=== PATIENT | female | born 1950 | race Caucasian/White ===

== ENCOUNTER → 2023-07-06 07:45 | Outpatient (REF) | payer MEDICARE, SELFPAY ==
--- NOTE | 2023-07-06 21:56 | EEG.RPT ---
Electroencephalogram Report
Recording
Date of EE07/06/23
Type of EEG: Routine
Length of EEG recordin mins
Done with Video Recording: Yes
Patient Status: Outpatient
Recording Conditions: Awake and Drowsy
Hyperventilation Performed: No
Photic Stimulation Performed: Yes
Report
METHODS
A 21 channel digitized electroencephalogram was performed at [facility]. The 10/20 international system of electrode placement was used. In addition to EEG, the patient was monitored for EKG. The duration of the recording was 29 minutes.
BACKGROUND
During the awake state, with the eyes closed, the background consisted of a normal amplitude, 9-10 Hertz posterior reactive rhythm that attenuated appropriately with eye opening. Beta activity was distributed diffusely with an anterior predominance.
There was a normal anterior-posterior voltage gradient. With eye opening the background activity changed to a low voltage mixture of alpha, beta, and occasional theta range frequencies. There were no significant asymmetries of background activity
noted.
PHOTIC STIMULATION
Photic stimulation using a step-batres increase in photic frequency varying from 1-31 Hertz resulted in driving responses at various frequencies but no appearance of abnormal activity.
ABNORMAL EEG ACTIVITY
None
CLINICAL EVENTS
None
INTERPRETATION AND CLINICAL CORRELATION
This EEG is normal during the awake and drowsy state as well as during the activation procedure of photic stimulation. No seizures were noted during the recording. A normal EEG, in itself, does not rule out a diagnosis of epilepsy. If clinical
suspicion for seizure persists, a sleep-deprived and/or prolonged recording may be warranted.
== END ==
LOC: RCS 07:45
PROVIDERS: ATTENDING PHYSICIAN Neurological Surgery; PRIMARYCARE PHYSICIAN Internal Medicine
DX: D42.0 Neoplasm of uncertain behavior of cerebral meninges (principal); R56.9 Unspecified convulsions; Z98.890 Other specified postprocedural states
CPT/HCPCS: 95816

== ENCOUNTER → 2023-07-07 12:42 | Outpatient (REF) | payer MEDICARE, SELFPAY | LOC: RAD 12:42 | PROVIDERS: ATTENDING PHYSICIAN Physician Assistant; FAMILY PHYSICIAN Internal Medicine | DX: I73.9 Peripheral vascular disease, unspecified (principal) | CPT/HCPCS: 93922; 93925 ==

== ENCOUNTER 2023-08-22 07:57 | Inpatient (IN) | payer MEDICARE, SELFPAY ==
[2023-08-11 11:21] VITALS: BMI 41.7
[2023-08-11 12:17] LABS: % Basophils 1.5 % (0-2); % Eosinophils 3.7 % (0-6); % Immature Granulocytes 0.6 % (0-0.5); % Lymphocytes 10.9 % (20.5-51.1); % Monocytes 6.9 % (1.7-9.3); % Neutrophils 76.4 % (42.2-75.2); Absolute Basophils 0.1 10^3/uL (0-0.2); Absolute Eosinophils 0.3 10^3/uL (0-0.7); Absolute Lymphocytes 0.7 10^3/uL (1.2-3.4); Absolute Monocytes 0.5 10^3/uL (0.1-0.6); Absolute Neutrophils 5.1 10^3/uL (1.4-6.5); Hematocrit 39.5 % (37.0-47.0); Mean Corp Hgb Conc. 32.9 g/dL (33.0-37.0); Mean Corpuscular Hgb 27.4 pg (27.0-31.0); Mean Corpuscular Volume 83.3 fL (81.0-99.0); Mean Platelet Volume 10.2 fL (7.4-10.4); Nucleated Red Blood Cells % 0 %; Platelet Count 263 10^3/uL (130-400); Red Blood Cell Count 4.74 10^6/uL (4.20-5.40); Red Cell Dist. Width 17.2 % (11.5-14.5); White Blood Cell Count 6.7 10^3/uL (4.8-10.8)
[2023-08-11 12:29] LABS: INR 1.29; PT 15.9 Sec (11.4-14.6)
[2023-08-11 12:59] LABS: ALT (SGPT) 14 U/L (0-35); AST (SGOT) 18 U/L (14-36); Albumin 3.9 g/dl (3.5-5.0); Alkaline Phosphatase 104 U/L (38-126); Blood Urea Nitrogen 21 mg/dl (7-17); Calcium 9.4 mg/dl (8.4-10.2); Carbon Dioxide 29 mmol/L (22-30); Chloride 100 mmol/L (98-107); Estimated Creatinine Clearance 67 ml/min; Glucose 207 mg/dl (70-99); Potassium 3.7 mmol/L (3.5-5.1); Sodium 139 mmol/L (135-145); Total Bilirubin 0.6 mg/dl (0.2-1.3); eGFR > 60.00
[2023-08-22] VITALS (24 sets, daily range): BP systolic 64–125; BP diastolic 43–78; BMI 41.7
[2023-08-22 08:51] LABS: Glucose - Point of Care 141 mg/dl (70-99)
[2023-08-22] MEDS: NSS 500 IV (09:25)
[2023-08-22 11:05] LABS: ACT-LR - POC 210 Seconds (116-155)
--- NOTE | 2023-08-22 11:44 | ITS.CL.PN ---
Formal Wear Rental Clerk - Procedure Note
Procedure
Procedure Note:
Watchman implantation report
Date: August 22, 2023
Referring: Dr. Ac Jonas
History: Recent meningioma resection with frequent falls due to seizures as well as elevated stroke risk and permanent atrial fibrillation status post 2 attempts at catheter ablation.
Procedure report:
skiving machine operator: Dr. Nam Farley
biomass boiler operator: Dr. Azalia Mendes
After informed consent and patient safety timeout the patient was intubated by the anesthesiology service. General anesthesia was performed. Groin access was performed with ultrasound guidance with an 8 [place] and 9 [place] sheath placed over a
wire into the right femoral vein documented on intracardiac ultrasound. Patient given heparin to maintain an ACT greater than 300 seconds. Transesophageal echo was also performed concomitantly with intracardiac ultrasound to highlight the fossa,
direct imaging, rule out left atrial appendage thrombus and perform measurements on the delivery device.
Transapical puncture was performed with an SL 1 sheath with marked lipomatous hypertrophy of the fossa making transseptal puncture relatively difficult. An anterior and middle position was taken just below the significant lipomatous hypertrophy in
the superior limbus. Unfortunately the sheath [place] relatively mid chamber and extensive counter and anterior positioning of the sheath was required to engage the left atrial appendage with a pigtail. The SL 1 sheath was exchanged for the
watchman sheath over a ProTrac wire. Once the left atrial pended was engaged we had a chicken wing morphology with an extreme elbow bend superiorly. A 27 mm device was delivered with an 11 to 24% compression and device fabric engaging both
anterior and posterior sharma. Pass criteria was met with a double tug test, position with dye injection, SON parameters as above.
Once consensus was reached regarding past criteria the device was deployed and she is in catheters removed from the left atrium. Heparin was turned off and protamine was given. Catheters were removed and protamine was given to reverse heparin and
a [id number]-fo-uvtta stitch was delivered to the right groin. There is no pericardial effusion pre and post ablation both on intracardiac ultrasound and transesophageal echo.
See separate report for the transesophageal echo.
Recommendations:
Given her markedly elevated bleeding risk with recent neurological surgery, history of seizures and fall as well as overall medical condition we will do Xarelto only for 3 months until SON and then can consider aspirin thereafter.
--- NOTE | 2023-08-22 13:36 | WATCHMAN.MD ---
Watchman Implant
-
ELECTROPHYSIOLOGY/INTERVENTIONAL PROCEDURE REPORT
Date of Procedure: August 22, 2023
Referring: Dr. Ac Jonas
Assisting Physician: Nam Farley
PROCEDURES:
1. Left atrial appendage occlusion device using 27 mm WATCHMAN FLX device
2. Intracardiac echocardiography
3. Ultrasound-guided right common femoral venous access
INDICATION: Recent meningioma resection with frequent falls due to seizures as well as elevated stroke risk and permanent atrial fibrillation status post 2 attempts at catheter ablation.
ACCESS: Right common femoral vein, 16Fr sheath and 9Fr. sheaths, under US guidance
HEMODYNAMICS : (mmHg)
RA Pressure : 4
LA Pressure: 16
PROCEDURE REPORT:
After informed consent and patient safety 'Timeout' the patient was intubated and sedated by the anesthesiology service. Under ultrasound guidance, the right femoral vein was accessed twice for transseptal puncture and intracardiac ultrasound,
respectively. Concomitant transesophageal echocardiogram was performed by Dr. Reese Denny
Baseline intracardiac ultrasound demonstrated no pericardial effusion and baseline SON images revealed a trace pericardial effusion.
After ruling out a left atrial appendage thrombus, the patient was heparinized for an ACT between 350-400 seconds and under SON and intracardiac ultrasound guidance transseptal puncture was performed using an SL-1 catheter and 71cm BRK trans-septal
needle in a superior position on the inferior-superior axis and a mid position on the anterior-posterior axis. Right atrial pressure was 4 millimeters mercury and left atrial pressure was 16 millimeters mercury.
Once transseptal puncture was performed, a Harrison 0.035 wire parked in the body of left atrium, the SL 1 sheath was exchanged for a watchman access double curve sheath. A 5 Danish pigtail catheter was placed into the left atrial appendage and an
appendage gram was performed using intravenous contrast dye demonstrating a chicken type anatomy that was suitable likely for a 27 mm WATCHMAN FLX device.
After appropriately prepping the device, we successfully deployed a 27 mm WATCHMAN FLX device. Device showed excellent positioning with no leaks post device deployment. 11 to 24 % compression was noted in the device after deployment. A 'tug-test'
was performed demonstrating stability of the device. Given PASS criteria were met, the device was then released successfully.
Post procedure, SON imaging demonstrated no new or worse pericardial effusion. Sheaths and catheters were removed from the left atrium and heparin was reversed using protamine. Catheters removed from the femoral veins with [id number] suture
applied. The patient tolerated the procedure well.
RADIATION SUMMARY: Fluoro Time (min): 12.1, Dose (mGy): 985.05, DAP (Gy.cm2) : 104
Closure Device: Figure of 8 suture
CONCLUSIONS
1. Successful deployment of 27 mm WATCHMAN FLX device under SON and ICE guidance.
RECOMMENDATIONS
1. Given her markedly elevated bleeding risk with recent neurological surgery, history of seizures and fall as well as overall medical condition, plan is for Xarelto only for 3 months until SON.
2. Three month SON post procedure to assess stability of device and rule out any ricky-device leaks. If no significant leaks identified at that point with a stable device, we would plan on discontinuing the Xarelto and starting daily baby aspirin.
3. Figure of 8 suture removal prior to discharge.
Copy to: Dr. Ac Jonas
Azalia Mendes MD, [facility], [facility]
[2023-08-22 13:37] LABS: Glucose - Point of Care 136 mg/dl (70-99)
--- NOTE | 2023-08-22 14:07 | CM ---
Chart reviewed. Patient lives with her son and his extended family in a [address]. Patient with no discharge needs. Plan is for the patient to return home.
--- NOTE | 2023-08-22 15:24 | W.PN.UPDATE ---
Addendum entered and electronically signed by DB Beyer 08/23/23 08:43:
Pt having hypoxia with minimal exertion, sats dropping to mid 80's. We will check CXR, lasix 40mg IV now and admit to IVU o/n for observation. If bp able may give another dose of IV lasix tonight or in am if unable to tolerate RA. Dr. Farley aware
and agrees with plan.
Original Note:
Update Note
Progress Note Update
72 yo WF s/p ANNE Watchman device implant (same day). She feels good, no cp, sob, jr diet. R fem site c/d/i F08 in place. She will continue OAC Xarelto. She will have f/u SON in 3 months. Activity restrictions reviewed. She will f/u 1 mo at [facility]. She
is for d/c home after 5pm if groins stable, amb and voiding.
PROCEDURES:
1.� Left atrial appendage occlusion device using 27 mm WATCHMAN FLX device
2.� Intracardiac echocardiography
3.� Ultrasound-guided right common femoral venous access
--- NOTE | 2023-08-22 16:22 | PTCARENOTE ---
Pt's sats drop to 70's with minimal activity and high 80's in RA. MD/PARK SUPERINTENDENT notified. Pt will remain in house on O2 with plans to 'dose with Lasix when BP allows it'. Pt is agreeable to staying on the condition she is on a regular diet.
[2023-08-22] MEDS: LASIX 40 MG IV (16:35)
[2023-08-22] MEDS: NOVOLOG FLEXPEN-MODERATE RESISTANCE 1 UNITS SC (16:47)
[2023-08-22 16:53] LABS: Glucose - Point of Care 195 mg/dl (70-99)
--- NOTE | 2023-08-22 18:03 | PTCARENOTE ---
Rec'd report from Roxana in the label maker. Rec'd pt AAOx3 w/no c/o CP or SOB. Pt's vs stable. Pt's O2 sats on 2L O2 via NC 94-96%. R groin access site w/dressing C/D/I w/no signs or symptoms of bleeding or hematoma. Pt w/purewick place for stress
incontinence & urgency. Pt was given IV Lasix in label maker just before transfer to IVU. Pt oriented to room, call duque within reach, & plan of care ongoing.
[2023-08-22] MEDS: XARELTO 20 MG PO (18:44)
[2023-08-22] MEDS: ANESTHETIC LOZENGE 1 LOZENGE PO (20:51)
[2023-08-22] MEDS: KEPPRA 500 MG PO (20:51)
[2023-08-22] MEDS: KCL 20 MEQ PO (20:51)
[2023-08-22 21:44] LABS: Glucose - Point of Care 414 mg/dl (70-99)
[2023-08-22 21:44] LABS: Glucose - Point of Care 468 mg/dl (70-99)
[2023-08-22 22:19] LABS: Glucose 435 mg/dl (70-99)
[2023-08-22] MEDS: TRICOR 48 MG PO (22:52)
[2023-08-22] MEDS: ZOLOFT 50 MG PO (22:52)
[2023-08-22] MEDS: LIPITOR 40 MG PO (22:52)
[2023-08-22] MEDS: NOVOLOG FLEXPEN 10 UNITS SC (23:14)
[2023-08-22] MEDS: LANTUS 0.160000000000000003 UNITS SC (23:15)
--- NOTE | 2023-08-22 23:39 | PTCARENOTE ---
received patient at the change of shift. AAOx3. denies any pain. HR Afib with a BBB 100s. bp stable. patient denies any sob. weaned patient to RA-94%. chest xray completed. R groin site-CDI.
HS glucose RR high. stat venous sent-435. updated Ed Galo LAMA. order placed for insulin 10 units SC, see aug. will recheck in 2 hrs.
[2023-08-23 01:16] LABS: Glucose - Point of Care 319 mg/dl (70-99)
[2023-08-23 04:10] VITALS: BP 112/64
[2023-08-23 05:07] LABS: Hematocrit 39.1 % (37.0-47.0); Hemoglobin 12.1 g/dL (12.0-16.0); Mean Corp Hgb Conc. 30.9 g/dL (33.0-37.0); Mean Corpuscular Hgb 27.2 pg (27.0-31.0); Mean Corpuscular Volume 87.9 fL (81.0-99.0); Mean Platelet Volume 10.4 fL (7.4-10.4); Platelet Count 251 10^3/uL (130-400); Red Blood Cell Count 4.45 10^6/uL (4.20-5.40); Red Cell Dist. Width 16.6 % (11.5-14.5); White Blood Cell Count 7.7 10^3/uL (4.8-10.8)
[2023-08-23 05:36] LABS: Blood Urea Nitrogen 21 mg/dl (7-17); Calcium 9.4 mg/dl (8.4-10.2); Carbon Dioxide 26 mmol/L (22-30); Chloride 102 mmol/L (98-107); Estimated Creatinine Clearance 75 ml/min; Glucose 265 mg/dl (70-99); Magnesium 2.1 mg/dl (1.6-2.3); Potassium 4.4 mmol/L (3.5-5.1); Sodium 138 mmol/L (135-145); eGFR > 60.00
[2023-08-23 06:00] VITALS: BMI 43.4
[2023-08-23] MEDS: SYNTHROID 125 MCG PO (06:21)
[2023-08-23] MEDS: LASIX 120 MG PO (06:21)
[2023-08-23 06:23] VITALS: BP 127/68
[2023-08-23 07:13] LABS: Glucose - Point of Care 216 mg/dl (70-99)
[2023-08-23 07:41] VITALS: BP 116/67
[2023-08-23] MEDS: NOVOLOG FLEXPEN-MODERATE RESISTANCE 3 UNITS SC (08:03)
--- NOTE | 2023-08-23 08:04 | W.PN.CARDCBS ---
Addendum entered and electronically signed by Nam Farley MD 08/23/23 09:53:
Patient seen and examined
Agree [employer]ATE [employer] noted assessment
Agree [employer]ATE [employer] plan
Examination:
Cor regular
Telemetry A-fib
JVP 6
Lungs clear
Trace extremity
Vitals noted
Remainder of exam deferred and as per [employer] ASS[employer]IATE [employer] note
IMPRESSION:
AFib, prior PVI x2
S/P Watchman device implant, 08/22/23
Seizures
Hemangioma s/p craniotomy/radiation therapy (2007)
Ambulatory dysfunction with falls
DON, prior blood transfusions
HTn
HLD
DM
GERD/HH
CAD w/prior UT, PCI x2 REJI (1996)
Asthma/Reactive Lung Disease
Severe Pulm HTN
Chronic diastolic HFpEF, 50-55%
RBBB
Mod MR, Mod-Sev TR
PLAN:
Tele- AFib w/RBBB, rates 90-100s, no acute changes
Groin site stable
Continue Xarelto post watchman
SON in 3 months as scheduled, at which time likely will change to monotherapy with aspirin 81mg/daily
BP stable overnight- continue verapamil, digoxin
CXR w/severe distention of main pulm artery c/w severe PAH
No further dyspnea/hypoxia/hypotension- continue lasix, spironolactone
Followup at [facility] as scheduled and SON to follow
Home today
Original Note:
Today's Communication / Plan
-
SON in 3 months
Xarelto for 3 months, then aspirin 81/d if no leaks
followup at [facility] as scheduled
home today
Impression / Plan
-
PCP: Betsy Heard NP
CDY: Rob Jonas MD
72 y/o PMH sig for AFib w/prior PVI x2, [id number]=0 and HAS-BLED=5, ambulatory dysfunction with falls r/t prior seizures, hemangioma with craniotomy and radiation therapy, as well as iron deficiency anemia with prior blood transfusions. She has
been maintained on xarelto 20mg daily for her AFib.
Presented to EP lab 08/21, s/p LAAD/Watchman device implant. Post procedure in recovery she developed hypoxia and hypotension, received iv lasix and supplemental O2, now stable overnight.
IMPRESSION:
AFib, prior PVI x2
S/P Watchman device implant, 08/22/23
Seizures
Hemangioma s/p craniotomy/radiation therapy (2007)
Ambulatory dysfunction with falls
DON, prior blood transfusions
HTn
HLD
DM
GERD/HH
CAD w/prior UT, PCI x2 REJI (1996)
Asthma/Reactive Lung Disease
Severe Pulm HTN
Chronic diastolic HFpEF, 50-55%
RBBB
Mod MR, Mod-Sev TR
PLAN:
Tele- AFib w/RBBB, rates 90-100s, no acute changes
Groin site stable
Continue Xarelto post watchman
SON in 3 months as scheduled, at which time likely will change to monotherapy with aspirin 81mg/daily
BP stable overnight- continue verapamil, digoxin
CXR w/severe distention of main pulm artery c/w severe PAH
No further dyspnea/hypoxia/hypotension- continue lasix, spironolactone
Followup at [facility] as scheduled and SON to follow
Home today
Progress Note - Regional Engagement Consultant
Subjective
Date of Service: August 23, 2023
Denies cp/palps/dypsnea
groin site without pain
oob ambulating
Objective
Labs:
08/23/23 04:22
08/23/23 04:22
Labs
Hgb 12.1 g/dL (12.0-16.0) 08/23/23 04:22
Hct 39.1 % (37.0-47.0) 08/23/23 04:22
Plt Count 251 10^3/uL (130-400) 08/23/23 04:22
PT 15.9 Sec (11.4-14.6) H 08/11/23 11:47
INR 1.29 08/11/23 11:47
Sodium 138 mmol/L (135-145) 08/23/23 04:22
Potassium 4.4 mmol/L (3.5-5.1) 08/23/23 04:22
BUN 21 mg/dl (7-17) H 08/23/23 04:22
Creatinine 0.8 mg/dL (0.6-1.0) 08/23/23 04:22
Glucose 265 mg/dl (70-99) H 08/23/23 04:22
Vital Signs and I&O:
Vital Signs
Temp Pulse Resp BP Pulse Ox
98.6 F 112 20 116/67 93
08/23/23 07:41 08/23/23 08:00 08/23/23 07:41 08/23/23 07:41 08/23/23 07:41
Vital Signs
Temp Pulse Resp BP Pulse Ox
98.6 F 112 20 116/67 93
08/23/23 07:41 08/23/23 08:00 08/23/23 07:41 08/23/23 07:41 08/23/23 07:41
Intake & Output
08/21/23 08/22/23 08/23/23 08/24/23
06:59 06:59 06:59 06:59
Intake Total 2160 / 2160
Output Total 1100 / 1100
Balance 1060 / 1060
Physical Exam
Physical Exam
AAOx3, MAEE 5/5
Irreg irreg S1 S2 no murmurs
CTA bilat, non labored
soft abd, + bs
right groin site without ht/bleeding, non tender
bilat extremities w/palpable distal pulses, no edema
[2023-08-23] MEDS: ALDACTONE 25 MG PO (08:05)
[2023-08-23] MEDS: CALAN EXTENDED RELEASE 360 MG PO (08:06)
[2023-08-23] MEDS: KCL 20 MEQ PO (08:06)
[2023-08-23] MEDS: PROTONIX 40 MG PO (08:06)
[2023-08-23] MEDS: KEPPRA 500 MG PO (08:06)
[2023-08-23] MEDS: FLUSH (NSS) 1 FLUSH IV (08:07)
--- NOTE | 2023-08-23 09:13 | PTCARENOTE ---
Received patient this morning already oob and sitting in the chair. Seen by Dr. Farley and is ok for discharge home today. Reports no pain or discomfort, right groin dressing is dry and intact. Await discharge order, states her granddaughter will
drive her home.
[2023-08-23 09:49] LABS: Glycohemoglobin (HgbA1c) 9.3 % (4.0-5.6)
[2023-08-23] MEDS: ANESTHETIC LOZENGE 1 LOZENGE PO (10:33)
--- NOTE | 2023-08-23 10:35 | CM ---
Chart reviewed. Patient is independent of ADLS, lives with her son and his family in a [address] [facility], [address], ambulates with a rolling walker and also has a chair lift. Patient is current with [facility]. Referral sent to resume services. Plan is for
the patient to return home with [facility].
--- NOTE | 2023-08-23 11:41 | PTCARENOTE ---
Reviewed discharge instructions with the patient and follow up appointments and she states her understanding. Patient discharged home with her granddaughter.
--- NOTE | 2023-08-23 12:34 | W.DS.TRANS ---
DC Summary - Special Needs Nanny
-
Discharge Instructions:
Sleep Apnea Risk Intermediate
Discharge Diagnosis/Procedures Afib post Watchman device insertion
Diet Low Cholesterol,Diabetic, Carb Controlled
Driving Restrictions No driving for 24 hours
Others Tests A SON is scheduled for you at [facility] on 11/15/2023. You will receive
instructions in the mail and a call the day
before with arrival time.
Instructions:
Stand-Alone Forms: DC Instructions- Cath/EP Lab
Changes to Home Medications: No
Discharge Medications:
DC Medications w/original date entered in [employer]
rivaroxaban 20 mg tablet (Xarelto) 20 mg PO HS Blood clot prevention/tx 03/21/17
albuterol sulfate 90 mcg/actuation aerosol inhaler 2 puff inhalation R Q4HPRN PRN sob/wheezing 09/27/19
folic acid 1 mg tablet 1 mg PO DAILY Supplement #7 tabs 02/20/20
atorvastatin 40 mg tablet 40 mg PO HS High cholesterol 04/23/21
fenofibrate nanocrystallized 48 mg tablet 48 mg PO HS High cholesterol 07/13/21
ascorbic acid (vitamin C) 500 mg tablet (Vitamin C) 500 mg PO BID Supplement #0 tabs 07/23/21
cholecalciferol (vitamin D3) 50 mcg (2,000 unit) tablet 2,000 units PO DAILY Supplement #0 tabs 07/23/21
montelukast 10 mg tablet 10 mg PO DAILY Allergies 11/30/21
pantoprazole 40 mg tablet,delayed release 40 mg PO DAILY Gastrointestinal issue 11/30/21
sertraline 50 mg tablet 50 mg PO HS Depression 11/30/21
insulin glargine 100 unit/mL (3 mL) subcutaneous pen (Lantus Solostar U-100 Insulin) 16 unit SC HS 06/28/22
verapamil 180 mg tablet,extended release 360 mg PO DAILY 30 days #60 tabs 07/02/22
furosemide 80 mg tablet 120 mg PO DAILY 08/08/23
levetiracetam 500 mg tablet 500 mg PO BID 08/11/23
acetaminophen 650 mg tablet,extended release 1,300 mg PO BIDPRN PRN headache, pain 08/22/23
digoxin 125 mcg (0.125 mg) tablet 125 mcg PO DAILY 08/22/23
ferrous fumarate 325 mg (106 mg iron) tablet 325 mg PO DAILY 08/22/23
fluticasone 250 mcg-salmeterol 50 mcg/dose blistr powdr for inhalation (Advair Diskus) 1 inh inhalation BID 08/22/23
furosemide 80 mg tablet 80 mg PO DAILY@1400 08/22/23
levothyroxine 125 mcg tablet (Synthroid) 125 mcg PO DAILY 08/22/23
metformin 500 mg tablet,extended release 24 hr 500 mg PO BID 08/22/23
potassium chloride 20 mEq tablet,extended release(part/cryst) 20 meq PO BID 08/22/23
spironolactone 25 mg tablet 25 mg PO DAILY 08/22/23
Home Medication Changes
Pending Results: No
== END 2023-08-23 11:45 | disposition home health service (06) | DRG 274 ==
LOC: IVU 07:57 → CATH 08:00
PROVIDERS: Nurse Practitioner Adult Health; ADMITTING PHYSICIAN Internal Medicine Cardiovascular Disease; FAMILY PHYSICIAN Internal Medicine
PROC: 02L73DK Occlusion of Left Atrial Appendage with Intraluminal Device, Percutaneous Approach (ICD-10-PCS; 2023-08-22)
PROC: B24BZZ4 Ultrasonography of Heart with Aorta, Transesophageal (ICD-10-PCS; 2023-08-22)
DX: I48.21 Permanent atrial fibrillation (principal); I13.0 Hypertensive heart and chronic kidney disease with heart failure and stage 1 through stage 4 chronic kidney disease, or unspecified chronic kidney disease; R09.02 Hypoxemia; I95.9 Hypotension, unspecified; I45.10 Unspecified right bundle-branch block; I27.21 Secondary pulmonary arterial hypertension; I50.9 Heart failure, unspecified; N18.30 Chronic kidney disease, stage 3 unspecified; E78.5 Hyperlipidemia, unspecified; I25.10 Atherosclerotic heart disease of native coronary artery without angina pectoris; E11.22 Type 2 diabetes mellitus with diabetic chronic kidney disease; E03.9 Hypothyroidism, unspecified; G40.909 Epilepsy, unspecified, not intractable, without status epilepticus; E11.40 Type 2 diabetes mellitus with diabetic neuropathy, unspecified
CPT/HCPCS: 33340; 36415; 71045; 76937; 80048; 80053; 82947; 82962; 83036; 83735; 85025; 85027; 85347; 85610; 86850; 86900; 86901; 87070; 93005; 93355; 93662; C1759; C1892; C1893; C1894; Q9967

== ENCOUNTER 2023-08-31 23:44 | Emergency (ER) | payer MEDICARE, SELFPAY ==
[2023-08-31 23:47] VITALS: BP 127/65
[2023-09-01] VITALS: BP 111/94
--- NOTE | 2023-09-01 00:13 | ED.GENMED ---
History of Present Illness
General
Chief Complaint: Dizziness
Time Seen by Provider: 09/01/23 00:13
Travel History
Have you had any contact with someone who has COVID-19?: No
Do you have any symptoms of coronavirus? Fever > 100 degrees, chills, cough, shortness of breath, sore throat, loss of taste or smell, muscle aches, or headache?: No
History of Present Illness
History of Present Illness:
HPI: The patient presents with vertiginous symptoms ongoing for the past several days. She had a Watchman procedure 4 days ago which was uneventful. She has no associated chest pain or shortness of breath. Her symptoms of vertigo worsen with
changes in head position. She is known to Dr. Barrera called their office and informed her to drink plenty of fluid.
EXAM:
GENERAL: Well appearing in no distress
HEENT: Moist oral mucosa
CARDIOVASCULAR: No murmurs, normal heart rate, irregular rhythm, No chest wall tenderness
PULMONARY: No respiratory distress, breath sounds are clear and equal
ABDOMEN: Soft with no peritoneal signs, no tenderness
NEUROLOGIC: Good strength all extremities, no coordination deficits, normal finger-nose testing bilaterally
PSYCHIATRIC: Appropriate mental status, normal insight and judgement
EXTREMITIES: Nontender, chronic bilateral lower extremity lymphedema noted, moves all extremities equally
SKIN: No rash, no lesions
TIME OF INITIAL ENCOUNTER: 12:15 AM
NUMBER AND COMPLEXITY OF PROBLEMS ADDRESSED AT THE ENCOUNTER
� Chronic conditions affecting care: Atrial fibrillation, CHF, CAD, lymphedema, pulmonary hypertension
� Acute Exacerbation and/or Progression of Chronic Illness: This is an acute problem
� Differential Diagnosis includes: BPPV, intracranial pathology, postprocedural complication unlikely, dysrhythmia
AMOUNT AND/OR COMPLEXITY OF DATA TO BE REVIEWED AND ANALYZED
� I performed an independent evaluation of and my interpretation is:
EKG: The patient is in A-fib on the monitor with rates in the 70s to 80s
CT: I personally viewed the CT of the brain and agree with radiologist interpretation there is no acute abnormality
X-rays:
Laboratory Studies: CBC normal, chemistries show glucose of 380 and she has been hyperglycemic in the past, dig level slightly low at 0.6
Other:
� Review of other/old records: I reviewed the records from this past hospitalization within this past week
� Clinical information was obtained by an independent historian: None needed
� Prescriptions/Medications Considered but not given:
� Further testing considered but not performed:
RISK OF COMPLICATIONS AND/OR MORBIDITY OR MORTALITY OF PATIENT MANAGEMENT
� Social determinants of health affecting care: Lives at home
� Discussion with other providers: Notified Dr. Mathew at 1:25 AM
� Escalation of care including admission/observation vs risk of discharge considered: The patient's symptoms are more consistent with BPPV as opposed to a central etiology. She is currently in rate controlled A-fib. Given her
age, obtained CT imaging of the brain which showed no acute abnormality. Suspect BPPV�she states that she can obtain physical therapy at home as she already has visiting nursing working with her.
Past History
Past History
ED Past Medical History: Arrthythmia (Atrial fibrillation), Asthma, CAD, CHF, HTN, Hypercholesterolemia, IDDM, DC, Hypothyroidism and Other (PNA, Cellulitis, Chronic Lymph edema,)
ED Past Surgical History: Cardiac (cardioversion, Stents X 2), Cholecystectomy and Other
Social History
Tobacco: Former smoker
Alcohol: Daily (Vodka 1 large glass)
Drug: None
Personal:
Living: alone
Employment: Retired
Family History
Family History: Hypertension
Phy Exam
Physical Exam
Physical Exam:
See HPI
Course
Orders/Labs/Results
Orders:
Orders
09/01/23 00:15
CBC/With Diff [Complete Blood Count/With Diff] Urgent
CMP [Comprehensive Metabolic Panel] Urgent
Digoxin Urgent
09/01/23 00:20
CT Head W/o Iv Contrast Urgent
Comment:
Reason For Exam: new vertigo
0.9% Sodium Chloride 500 ml [Nss] 500 ml IV BOLUS
09/01/23 00:24
Add On- LAB Urgent
Tests Added?: digoxin
Abnormal Lab Results
09/01/23
00:15
MCHC 31.3 L g/dL
(33.0-37.0)
RDW 16.6 H %
(11.5-14.5)
MPV 10.5 H fL
(7.4-10.4)
Abs Immat Gran (auto) 0.2 H 10^3/uL
(0-0.05)
Absolute Lymphs (auto) 0.8 L 10^3/uL
(1.2-3.4)
Immature Gran % 2.2 H %
(0-0.5)
Lymphocytes % 12.2 L %
(20.5-51.1)
Sodium 134 L mmol/L
(135-145)
BUN 21 H mg/dl
(7-17)
Glucose 380 H mg/dl
(70-99)
Digoxin 0.6 L ng/ml
(0.8-2.0)
09/01/23 00:15
09/01/23 00:15
Vital Signs
Initial and Last Documented VS:
Initial Vital Signs
Temp Pulse Resp BP Pulse Ox
98.1 F 73 20 127/65 93
08/31/23 23:47 08/31/23 23:47 08/31/23 23:47 08/31/23 23:47 08/31/23 23:47
Last Documented Vital Signs
Temp Pulse Resp BP Pulse Ox
98.1 F 73 20 127/65 93
08/31/23 23:47 08/31/23 23:47 08/31/23 23:47 08/31/23 23:47 08/31/23 23:47
*Critical Care Note
Total Time (30-74mins, 75-104mins- exclusive of procedures): Not Applicable
ED Attending Note
-
Portions of this chart may have been created with voice recognition software.� Occasional wrong word or��sound alike� substitutions may have occurred due to the inherent limitations of voice recognition software.
Discharge Plan
Departure
Patient Disposition: Home (Routine Discharge)
Date of Disposition: 09/01/23
Time of Disposition: :27
Patient with high blood pressure during this ER visit?: Yes
Discharge Problem:
Benign paroxysmal positional vertigo
Instructions: Vertigo (a Type of Dizziness) (DC)
Prescriptions:
No Action
Xarelto 20 MG tablet
20 mg PO HS
albuterol sulfate 1 PUFF HFA aerosol inhaler
2 puff inhalation R Q4HPRN PRN (Reason: sob/wheezing)
folic acid 1 MG tablet
1 mg PO DAILY Qty: 7 0RF
atorvastatin 40 MG tablet
40 mg PO HS
fenofibrate nanocrystallized 48 MG tablet
48 mg PO HS
ascorbic acid (vitamin C) [Vitamin C] 500 MG tablet
500 mg PO BID Qty: 0 0RF
cholecalciferol (vitamin D3) 2,000 UNITS tablet
2,000 units PO DAILY Qty: 0 0RF
pantoprazole 40 MG tablet,delayed release (DR/EC)
40 mg PO DAILY
sertraline 50 MG tablet
50 mg PO HS
montelukast 10 MG tablet
10 mg PO DAILY
insulin glargine [Lantus Solostar U-100 Insulin] 100 unit/mL (3 mL) Insulin Pen
16 unit SC HS
verapamil 180 mg Tablet Extended Release
360 mg PO DAILY 30 Days Qty: 60 0RF
furosemide 80 mg Tablet
120 mg PO DAILY
levetiracetam 500 mg Tablet
500 mg PO BID
fluticasone propion-salmeterol [Advair Diskus] 250-50 mcg/dose Blister With Device
1 inh INHALATION BID
spironolactone 25 mg Tablet
25 mg PO DAILY
acetaminophen 650 mg Tablet Extended Release
1,300 mg PO BIDPRN PRN (Reason: headache, pain)
furosemide 80 mg Tablet
80 mg PO DAILY@1400
levothyroxine [Synthroid] 125 mcg Tablet
125 mcg PO DAILY
digoxin 125 mcg (0.125 mg) Tablet
125 mcg PO DAILY
ferrous fumarate 325 mg (106 mg iron) Tablet
325 mg PO DAILY
potassium chloride 20 mEq tablet,ER particles/crystals
20 meq PO BID
metformin 500 mg tablet extended release 24 hr
500 mg PO BID
Referrals:
Betsy Heard NP [Family Provider] -
Activity Restrictions/Additional Instructions:
Basic blood work appears normal. Your white count and hemoglobin are both normal. Your blood sugar is high at 380. Digoxin level is slightly low at 0.6. You were in atrial fibrillation on the monitor. I sent a message to Dr. Priyanka Dr.
Martine's partner notifying them of your visit to the ED. CAT scan of the brain showed no acute abnormality.
Interventions
Interventions:
*Risk Screen - Suicide Last Done: 08/31/23 23:48
*Neglect/Abuse Screening Last Done: 08/31/23 23:48
*ED COVID-19 Vaccine History Last Done: 08/31/23 23:48
Discharge Date and Time
Print Language: CITIZEN OF [place]
[2023-09-01 00:35] LABS: % Basophils 1.2 % (0-2); % Eosinophils 3.1 % (0-6); % Immature Granulocytes 2.2 % (0-0.5); % Lymphocytes 12.2 % (20.5-51.1); % Monocytes 6.6 % (1.7-9.3); % Neutrophils 74.7 % (42.2-75.2); Absolute Basophils 0.1 10^3/uL (0-0.2); Absolute Eosinophils 0.2 10^3/uL (0-0.7); Absolute Immature Granulocytes 0.2 10^3/uL (0-0.05); Absolute Lymphocytes 0.8 10^3/uL (1.2-3.4); Absolute Monocytes 0.5 10^3/uL (0.1-0.6); Absolute Neutrophils 5.1 10^3/uL (1.4-6.5); Hematocrit 39.9 % (37.0-47.0); Hemoglobin 12.5 g/dL (12.0-16.0); Mean Corp Hgb Conc. 31.3 g/dL (33.0-37.0); Mean Corpuscular Hgb 27.8 pg (27.0-31.0); Mean Corpuscular Volume 88.9 fL (81.0-99.0); Mean Platelet Volume 10.5 fL (7.4-10.4); Nucleated Red Blood Cells % 0 %; Platelet Count 249 10^3/uL (130-400); Red Blood Cell Count 4.49 10^6/uL (4.20-5.40); Red Cell Dist. Width 16.6 % (11.5-14.5); White Blood Cell Count 6.9 10^3/uL (4.8-10.8)
[2023-09-01 00:44] LABS: ALT (SGPT) 15 U/L (0-35); AST (SGOT) 23 U/L (14-36); Albumin 4.3 g/dl (3.5-5.0); Alkaline Phosphatase 100 U/L (38-126); Blood Urea Nitrogen 21 mg/dl (7-17); Calcium 9.4 mg/dl (8.4-10.2); Carbon Dioxide 25 mmol/L (22-30); Chloride 103 mmol/L (98-107); Digoxin 0.6 ng/ml (0.8-2.0); Glucose 380 mg/dl (70-99); Potassium 3.8 mmol/L (3.5-5.1); Sodium 134 mmol/L (135-145); Total Bilirubin 0.8 mg/dl (0.2-1.3); Total Protein 7.3 g/dl (6.3-8.2); eGFR 59.12
[2023-09-01] MEDS: NSS 500 IV (01:02)
[2023-09-01 01:03] VITALS: BP 115/73
== END 2023-09-01 03:06 | disposition home or self-care (01) ==
LOC: EMR 23:44
PROVIDERS: Student in an Organized Health Care Education/Training Program; EMERGENCY PHYSICIAN Emergency Medicine; FAMILY PHYSICIAN Internal Medicine
DX: H81.10 Benign paroxysmal vertigo, unspecified ear (principal); I48.91 Unspecified atrial fibrillation; I50.9 Heart failure, unspecified; I10 Essential (primary) hypertension
CPT/HCPCS: 99284; 70450; 80053; 80162; 85025

== ENCOUNTER → 2023-09-15 09:12 | Outpatient (REF) | payer MEDICARE, SELFPAY | LOC: RAD 09:12 | PROVIDERS: ATTENDING PHYSICIAN Internal Medicine | DX: R93.89 Abnormal findings on diagnostic imaging of other specified body structures (principal); N83.202 Unspecified ovarian cyst, left side | CPT/HCPCS: 76856; 93971 ==

== ENCOUNTER 2023-10-15 02:38 | Emergency (ER) | payer MEDICARE, OTHER, SELFPAY ==
[2023-10-15] VITALS (10 sets, daily range): BP systolic 102–152; BP diastolic 62–98
[2023-10-15 03:04] LABS: % Basophils 1.6 % (0-2); % Eosinophils 4.5 % (0-6); % Immature Granulocytes 0.9 % (0-0.5); % Monocytes 8.1 % (1.7-9.3); % Neutrophils 71.9 % (42.2-75.2); Absolute Basophils 0.1 10^3/uL (0-0.2); Absolute Eosinophils 0.3 10^3/uL (0-0.7); Absolute Immature Granulocytes 0.1 10^3/uL (0-0.05); Absolute Lymphocytes 0.9 10^3/uL (1.2-3.4); Absolute Monocytes 0.6 10^3/uL (0.1-0.6); Hematocrit 37.6 % (37.0-47.0); Hemoglobin 11.7 g/dL (12.0-16.0); Mean Corp Hgb Conc. 31.1 g/dL (33.0-37.0); Mean Corpuscular Hgb 27.8 pg (27.0-31.0); Mean Corpuscular Volume 89.3 fL (81.0-99.0); Mean Platelet Volume 9.6 fL (7.4-10.4); Nucleated Red Blood Cells % 0 %; Platelet Count 289 10^3/uL (130-400); Red Blood Cell Count 4.21 10^6/uL (4.20-5.40); Red Cell Dist. Width 14.8 % (11.5-14.5); White Blood Cell Count 6.9 10^3/uL (4.8-10.8)
[2023-10-15 03:27] LABS: ALT (SGPT) < 10 U/L (0-35); AST (SGOT) 16 U/L (14-36); Albumin 3.9 g/dl (3.5-5.0); Alkaline Phosphatase 125 U/L (38-126); Blood Urea Nitrogen 19 mg/dl (7-17); Calcium 10.1 mg/dl (8.4-10.2); Carbon Dioxide 27 mmol/L (22-30); Chloride 104 mmol/L (98-107); Estimated Creatinine Clearance 75 ml/min; Glucose 212 mg/dl (70-99); Potassium 3.9 mmol/L (3.5-5.1); Sodium 141 mmol/L (135-145); Total Bilirubin 0.5 mg/dl (0.2-1.3); Total Protein 7.2 g/dl (6.3-8.2); eGFR > 60.00
[2023-10-15 03:39] LABS: NT-proBNP 2270 pg/ml; Troponin I < 0.012 ng/ml
--- NOTE | 2023-10-15 03:59 | ED.MUSCINJ ---
HPI-Injury
<MARCOS Caldera - Last Filed: 10/15/23 05:53>
General
Chief Complaint: Fall
Source: patient
Exam Limitations: none
Time Seen by Provider: 10/15/23 03:16
Nursing documentation reviewed up to this point in time: agreed with
Travel History
Have you had any contact with someone who has COVID-19?: No
Do you have any symptoms of coronavirus? Fever > 100 degrees, chills, cough, shortness of breath, sore throat, loss of taste or smell, muscle aches, or headache?: No
History of Present Illness-Injury
Is this injury a work related problem?: No
Is pt an associate of [facility]?: No
Initial Injury comments:
This is a 73 year old female with history of CAD, Afib, CHf, HTN, HLP, [place] who presents to the ED with s/p fall injury earlier tonight. She was sleeping when she rolled over and fell out of bed. She landed on her L shoulder. She is having some pain
with her left shoulder and back. She denies hitting her head or LOC. She is on Xarelto for chronic Afib. She is not having any cardiac complains. She reports she has not taken her Furosemide in 2 days because she did not want urinary frequency. She
denies chest pain, headaches, difficulty moving her extremities.
Past History
<MARCOS Caldera - Last Filed: 10/15/23 05:53>
Past History
ED Past Medical History: Arrthythmia (Atrial fibrillation), Asthma, CAD, CHF, HTN, Hypercholesterolemia, IDDM, [place], Hypothyroidism and Other (PNA, Cellulitis, Chronic Lymph edema,)
ED Past Surgical History: Cardiac (cardioversion, Stents X 2), Cholecystectomy and Other
Social History
Tobacco: Former smoker
Alcohol: Daily (Vodka 1 large glass)
Drug: None
Personal:
Living: alone
Employment: Retired
Family History
Family History: Hypertension
Review of Systems
<MARCOS Caldera - Last Filed: 10/15/23 05:53>
Review of Systems
Allergies reviewed?: Yes
All Other Systems: Not applicable
Constitutional: Reports no symptoms
EENT: Reports no symptoms
Respiratory: Reports no symptoms
Cardiac: Reports no symptoms
ABD/GI: Reports no symptoms
: Reports no symptoms
Musculoskeletal: Reports back pain and other (LUE pain)
Skin: Reports no symptoms
Neurological: Reports no symptoms
Endocrine: Reports no symptoms
Hematologic/Lymphatic: Reports no symptoms
Psychiatric: Reports no symptoms
Phy Exam
<MARCOS Caldera - Last Filed: 10/15/23 05:53>
General Physical Exam
General Presentation: well appearing and no apparent distress
General Skin: warm and dry
General Habitus: normal
General Mental: alert
General Hydration: appears well hydrated
ENT Exam
ENT Exam: EOMI, pharynx normal, neck supple and normocephalic
Eye Exam
Eye Exam: PERRL, cornea clear and conjunctiva normal
Cardiovascular Exam
Cardiovascular Exam: regular rate/rhythm, no edema, no murmur and normal peripheral pulses
Pulmonary Exam
Pulmonary Exam: lungs clear, no respiratory distress, no rales, no crackles, no rhonchi, no stridor, no wheezing and no cough
Gastrointestinal Exam
Gastrointestinal Exam: normal bowel sounds, non tender, soft, no organomegaly, no pulsatile mass and non distended
Neurological Exam
Neurological Exam: alert, oriented x3, no motor deficits and speech normal
Musculoskeletal Exam
Musculoskeletal Exam: full ROM and no edema
Skin Exam
Skin Exam: normal color, warm/dry, no rash and no petechia
Psychiatric Exam
Psychiatric Exam: normal mood/affect
Injury Course
<MARCOS Caldera - Last Filed: 10/15/23 05:53>
Orders/Labs/Results
Orders:
Orders
10/15/23 02:49
Electrocardiogram (*1) Urgent
Reason for Study: Other
Other Reason for Exam: Respiratory Distress
Cardiac Monitoring- Treatment ONCE
EKG- Treatment ONCE
IV Insert/Care/Rem.- Treatment PRN
CR Chest - 2 Views Urgent
Comment:
Reason For Exam: respiratory distress
O2 Therapy [RESP] Urgent
Titrate/Wean O2 to maintain O2 sat greater than (%): 93
Special Instructions: TO MAINTAIN CONTINUOUS O2 SATS >/= 93%
Pulse Ox/cont/shift [RESP] Urgent
Quantity: 1
Special Instructions: continuous pulse ox
10/15/23 02:52
Complete Blood Count/With Diff Urgent
Comprehensive Metabolic Panel Urgent
NT-proBNP Urgent
Troponin I Urgent
10/15/23 03:12
CR Shoulder, Trauma - Left Urgent
Comment:
Reason For Exam: fall
10/15/23 04:51
CT Head W/o Iv Contrast Urgent
Comment:
Reason For Exam: fall out of bed, on xarelto
10/15/23 05:01
Furosemide [Lasix] 100 mg IV NOW STA
Abnormal Lab Results
10/15/23
02:52
Hgb 11.7 L g/dL
(12.0-16.0)
MCHC 31.1 L g/dL
(33.0-37.0)
RDW 14.8 H %
(11.5-14.5)
Abs Immat Gran (auto) 0.1 H 10^3/uL
(0-0.05)
Absolute Lymphs (auto) 0.9 L 10^3/uL
(1.2-3.4)
Immature Gran % 0.9 H %
(0-0.5)
Lymphocytes % 13.0 L %
(20.5-51.1)
BUN 19 H mg/dl
(7-17)
Glucose 212 H mg/dl
(70-99)
10/15/23 02:52
10/15/23 02:52
<Paz Harry, DO - Last Filed: 10/15/23 07:23>
Orders/Labs/Results
Orders:
Orders
10/15/23 02:49
Electrocardiogram (*1) Urgent
Reason for Study: Other
Other Reason for Exam: Respiratory Distress
Cardiac Monitoring- Treatment ONCE
EKG- Treatment ONCE
IV Insert/Care/Rem.- Treatment PRN
CR Chest - 2 Views Urgent
Comment:
Reason For Exam: respiratory distress
O2 Therapy [RESP] Urgent
Titrate/Wean O2 to maintain O2 sat greater than (%): 93
Special Instructions: TO MAINTAIN CONTINUOUS O2 SATS >/= 93%
Pulse Ox/cont/shift [RESP] Urgent
Quantity: 1
Special Instructions: continuous pulse ox
10/15/23 02:52
Complete Blood Count/With Diff Urgent
Comprehensive Metabolic Panel Urgent
NT-proBNP Urgent
Troponin I Urgent
10/15/23 03:12
CR Shoulder, Trauma - Left Urgent
Comment:
Reason For Exam: fall
10/15/23 04:51
CT Head W/o Iv Contrast Urgent
Comment:
Reason For Exam: fall out of bed, on xarelto
10/15/23 05:01
Furosemide [Lasix] 100 mg IV NOW STA
Abnormal Lab Results
10/15/23
02:52
Hgb 11.7 L g/dL
(12.0-16.0)
MCHC 31.1 L g/dL
(33.0-37.0)
RDW 14.8 H %
(11.5-14.5)
Abs Immat Gran (auto) 0.1 H 10^3/uL
(0-0.05)
Absolute Lymphs (auto) 0.9 L 10^3/uL
(1.2-3.4)
Immature Gran % 0.9 H %
(0-0.5)
Lymphocytes % 13.0 L %
(20.5-51.1)
BUN 19 H mg/dl
(7-17)
Glucose 212 H mg/dl
(70-99)
10/15/23 02:52
10/15/23 02:52
<MARCOS Caldera - Last Filed: 10/15/23 05:53>
MDM/Problems Addressed
Differential Diagnosis Includes:
Shoulder fracture vs dislocation vs contusion
<MARCOS Caldera - Last Filed: 10/15/23 05:53>
*Critical Care Note
Total Time (30-74mins, 75-104mins- exclusive of procedures): Not Applicable
<Paz Harry DO - Last Filed: 10/15/23 07:23>
*Radiology
Radiology exam reviewed: preliminary read by ED provider (Left shoulder x-rays negative for fracture. Chest x-ray shows chronic/stable cardiomegaly, mild interstitial fullness but overall improved from previous film June 2022.)
*Pulse Oximetry
Patient hypoxic: no
*EKG
Interpreted by ED Provider?: Yes
Interpretation: abnormal
Comparison EKG: changes noted (Atrial fibrillation, right bundle branch block similar and unchanged from previous save her heart rate has increased from 90 to now 127)
Rate: tachycardiac
Rhythm: a-fib
*Acupuncture Physician Interpretation
Rate: tachycardiac
Interpretation: abnormal
Rhythm: a-fib
ED Attending Note
<MARCOS Caldera - Last Filed: 10/15/23 05:53>
-
Portions of this chart may have been created with voice recognition software.� Occasional wrong word or��sound alike� substitutions may have occurred due to the inherent limitations of voice recognition software.
<Paz Harry DO - Last Filed: 10/15/23 07:23>
ED Attending Note
Patient seen and examined by attending physician: Yes
I performed the substantive portion of visit, reviewed & personally made and approve the management plan that is documented in note by myself or MAGDALENA.: Yes
I performed a history and physical exam of patient and discussed management with resident, I reviewed resident's note and agree with documented findings and plan of care.: Yes
ED Attending Note:
This is a 73-year-old woman who resides at home with her mother. She has history of chronic A-fib, hypertension CKD, lymphedema, restrictive lung disease who rolled over in bed and inadvertently fell out of bed landing on her left shoulder. She
denies head injury nor loss of consciousness. She complains of left shoulder pain. No weakness or numbness, no neck pain nor back pain.
Chronically maintained on Xarelto. She has history of Watchman procedure August of this year.
She is chronically maintained on Lasix 120 mg daily. She admits to not taking her Lasix over the past 2 days as she was out of the house attending her grandsons graduation and did not want to be bothered with frequent bathroom trips. She denies
shortness of breath, denies palpitations, no dizziness nor lightheadedness.
She has chronic lymphedema bilateral lower extremities, unchanged.
GENERAL: 73-year-old obese woman appears her stated age, awake, minimally drowsy but oriented x 3, easily communicative and appears in no acute distress.
EYE: The head is normocephalic, atraumatic. Pupils equal and reactive. anicteric
NECK: Supple, nontender, full range of motion without difficulty nor pain, no significant adenopathy.
ENT: posterior pharynx is clear, oral mucosa is moist. TM clear b/l, nares patent.
CARDIAC: Irregularly irregular, tachycardic at 120, no murmur.
LUNGS: no acute respiratory distress, scant bibasilar Rales.
ABDOMEN: Rotund, soft, nondistended, without focal tenderness, normoactive BS.
NEUROLOGICAL: Alert and oriented x3, no focal neuro deficits.
SKIN: Warm and dry, normal color, chronic venous stasis skin thickening and mild desquamation bilateral lower extremities.
MUSCULOSKELETAL: No clubbing or cyanosis, chronic lymphedema/venous stasis dermatitis bilateral lower extremities. No palpable tenderness to the lower extremities nor palpable heat. Peripheral pulses are full and equal b/l.
Left shoulder has very minimal tenderness lateral aspect. There is no soft tissue swelling, no ecchymosis, full shoulder range of motion without difficulty nor pain. No tenderness along the clavicle nor chest wall. No tenderness to the upper arm
nor elbow.
PSYCH: Normal and appropriate interaction.
History and exam consistent with left shoulder contusion, concern for occult fracture thus x-ray obtained which is unremarkable.
She is noted to have atrial fibrillation with rapid ventricular response. She has known history of chronic A-fib with generally controlled ventricular response. She is overall asymptomatic, denies chest pain nor coughing or shortness of breath,
denies palpitations, denies dizziness nor lightheadedness.
She admits to skipping her Lasix over the past 2 days as she was out of the house and I suspect an element of CHF as cause for elevated heart rate.
Chest x-ray shows chronic cardiomegaly, mild interstitial fullness but overall improved from previous film June 2022.
Labs are pending. Due to fall out of bed
Onto her shoulder, it is some concern for potential occult head injury and as she is maintained on Xarelto will CT her head.
10/15/2023 05:00 AM
Labs show moderately elevated BNP at 2200 but this is actually improved from previous result of 3500. Troponin is negative.
CT of the head is unremarkable.
Patient remains asymptomatic, no chest pain or palpitations no shortness of breath.
Will give an IV dose of Lasix for mild exacerbation of CHF but it this point no indication for hospitalization.
Recommend prompt follow-up with primary copper flotation operator and recommend she resume her regular medications including her daily Lasix 120 mg.
She may take Tylenol as needed for shoulder discomfort.
Discharge Plan
Departure
Patient Disposition: Home (Routine Discharge)
Date of Disposition: 10/15/23
Time of Disposition: 06:49
Patient with high blood pressure during this ER visit?: No
Condition: Good
Discharge Problem:
FALL OUT OF BED, Contusion of left shoulder, Chronic atrial fibrillation with rapid ventricular response, mild exacerbation of CHF, Noncompliance with lasix
Instructions: Contusion (DC), Preventing falls in adults, *CBC Heart Failure Instructions
Prescriptions:
No Action
Xarelto 20 MG tablet
20 mg PO HS
albuterol sulfate 1 PUFF HFA aerosol inhaler
2 puff inhalation R Q4HPRN PRN (Reason: sob/wheezing)
folic acid 1 MG tablet
1 mg PO DAILY Qty: 7 0RF
atorvastatin 40 MG tablet
40 mg PO HS
fenofibrate nanocrystallized 48 MG tablet
48 mg PO HS
ascorbic acid (vitamin C) [Vitamin C] 500 MG tablet
500 mg PO BID Qty: 0 0RF
cholecalciferol (vitamin D3) 2,000 UNITS tablet
2,000 units PO DAILY Qty: 0 0RF
pantoprazole 40 MG tablet,delayed release (DR/EC)
40 mg PO DAILY
sertraline 50 MG tablet
50 mg PO HS
montelukast 10 MG tablet
10 mg PO DAILY
insulin glargine [Lantus Solostar U-100 Insulin] 100 unit/mL (3 mL) Insulin Pen
16 unit SC HS
verapamil 180 mg Tablet Extended Release
360 mg PO DAILY 30 Days Qty: 60 0RF
furosemide 80 mg Tablet
120 mg PO DAILY
levetiracetam 500 mg Tablet
500 mg PO BID
fluticasone propion-salmeterol [Advair Diskus] 250-50 mcg/dose Blister With Device
1 inh INHALATION BID
spironolactone 25 mg Tablet
25 mg PO DAILY
acetaminophen 650 mg Tablet Extended Release
1,300 mg PO BIDPRN PRN (Reason: headache, pain)
furosemide 80 mg Tablet
80 mg PO DAILY@1400
levothyroxine [Synthroid] 125 mcg Tablet
125 mcg PO DAILY
digoxin 125 mcg (0.125 mg) Tablet
125 mcg PO DAILY
ferrous fumarate 325 mg (106 mg iron) Tablet
325 mg PO DAILY
potassium chloride 20 mEq tablet,ER particles/crystals
20 meq PO BID
metformin 500 mg tablet extended release 24 hr
500 mg PO BID
Referrals:
Betsy Heard NP [Specified Professional Personl] - Call in 1-3 days for appt
UNKNOWN - PT NOT,INTERVIEWE [Family Provider] -
Interventions
Interventions:
*Risk Screen - Suicide Last Done: 10/15/23 02:44
*General Assessment Last Done: 10/15/23 02:44
*Neglect/Abuse Screening Last Done: 10/15/23 02:44
ED- Fall Risk Assessment Last Done: 10/15/23 02:44
*ED COVID-19 Vaccine History Last Done: 10/15/23 02:44
ED- Cardiac Assessment Last Done: 10/15/23 03:00
ED-Musculoskeletal Assessment Last Done: 10/15/23 03:00
ED- Neurological Assessment Last Done: 10/15/23 03:00
ED- Pulmonary Assessment Last Done: 10/15/23 03:00
ED-Skin Assessment Last Done: 10/15/23 03:00
Discharge Date and Time
Print Language: INDONESIAN
[2023-10-15] MEDS: LASIX 100 MG IV (05:50)
== END 2023-10-15 07:25 | disposition home or self-care (01) ==
LOC: EMR 02:38
PROVIDERS: EMERGENCY PHYSICIAN Emergency Medicine
DX: S40.012A Contusion of left shoulder, initial encounter (principal); W06.XXXA Fall from bed, initial encounter; I48.20 Chronic atrial fibrillation, unspecified; I50.9 Heart failure, unspecified; I13.0 Hypertensive heart and chronic kidney disease with heart failure and stage 1 through stage 4 chronic kidney disease, or unspecified chronic kidney disease; E11.22 Type 2 diabetes mellitus with diabetic chronic kidney disease; N18.9 Chronic kidney disease, unspecified; E78.00 Pure hypercholesterolemia, unspecified; I25.10 Atherosclerotic heart disease of native coronary artery without angina pectoris; J45.909 Unspecified asthma, uncomplicated; Z79.01 Long term (current) use of anticoagulants; Z79.899 Other long term (current) drug therapy; Z82.49 Family history of ischemic heart disease and other diseases of the circulatory system; Z87.891 Personal history of nicotine dependence; Z90.49 Acquired absence of other specified parts of digestive tract; Z91.148 Patient's other noncompliance with medication regimen for other reason; Z95.5 Presence of coronary angioplasty implant and graft
CPT/HCPCS: 99284; 70450; 71046; 73030; 80053; 83880; 84484; 85025; 93005

== ENCOUNTER 2023-11-04 17:28 | Inpatient (IN) | payer MEDICARE, OTHER, SELFPAY ==
[2023-11-04] VITALS (11 sets, daily range): BP systolic 102–125; BP diastolic 42–90; BMI 44.1
--- NOTE | 2023-11-04 14:00 | ED.GENMED ---
History of Present Illness
General
Chief Complaint: Skin Problem
Time Seen by Provider: 11/04/23 13:14
Travel History
Have you had any contact with someone who has COVID-19?: No
Do you have any symptoms of coronavirus? Fever > 100 degrees, chills, cough, shortness of breath, sore throat, loss of taste or smell, muscle aches, or headache?: No
History of Present Illness
History of Present Illness:
73 female with history of A-fib currently on Xarelto status post recent Watchman procedure, CHF, coronary disease, restrictive lung disease diabetes with neuropathy, and lower extremity lymphedema presents to the emergency department for evaluation
of worsening redness and swelling to the left lower extremity. She saw her primary care physician for this 5 days ago and was placed on cephalexin, has been compliant with antibiotics but symptoms are not improving. Denies any fevers or night
sweats. She denies pain secondary to chronic edema
Past History
Past History
ED Past Medical History: Arrthythmia (Atrial fibrillation), Asthma, CAD, CHF, HTN, Hypercholesterolemia, IDDM, [place], Hypothyroidism and Other (PNA, Cellulitis, Chronic Lymph edema,)
ED Past Surgical History: Cardiac (cardioversion, Stents X 2), Cholecystectomy and Other
Social History
Tobacco: Former smoker
Alcohol: Daily (Vodka 1 large glass)
Drug: None
Personal:
Living: alone
Employment: Retired
Family History
Family History: Hypertension
Review of Systems
Review of Systems
Allergies reviewed?: Yes
All Other Systems: ROS reviewed and negative except as documented in HPI and ROS
Phy Exam
Physical Exam
Physical Exam:
GEN: Well appearing, NAD, WDWN
HEENT: Oral mucosa moist, no scleral icterus
Cardiac: Tachycardic and irregular
Lung: No respiratory distress, no tachypnea
MSK: No gross deformity or injuries
Skin: Good color, no pallor or jaundice. Severe left lower extremity lymphedema with circumferential erythema involving the torres, erythema extends to the medial thigh
Neuro: AO x3, moves all extremities freely
Psych: Calm, cooperative
Course
Orders/Labs/Results
Orders:
Orders
11/04/23 13:58
Cefepime HCl [Maxipime] 2,000 mg IV NOW STA
11/04/23 14:13
Basic Metabolic Panel Urgent
Complete Blood Count/With Diff Urgent
Lactic Acid Q4H
Comment: CANCEL 2nd LACTIC ACID IF 1st LACTIC ACID IS LESS THAN 2
Blood Culture Q30M
HENNY Source: Blood/Venous
Specimen Description:
11/04/23 14:21
Blood Culture Q30M
HENNY Source: Blood/Venous
Specimen Description:
11/04/23 15:44
Admit/Transfer Patient As Directed
Co-Sign Provider:
Level of Care: Observation services
Assign to:: Telemetry
Physician / Group: Jyoti/Hospitalist
Diagnosis: LLE cellulitis
Reason for Telemetry: Arrhythmia
Date to Stop Telemetry: 11/07/23
Time to Stop Telemetry: 11:00
Reason for Hospitalization: LLE cellulitis
Code Status As Directed
Resuscitation Status: Full Code
11/04/23 16:27
Furosemide [Lasix] 40 mg IV NOW STA
11/04/23 18:00
Lactic Acid Q4H
Comment: CANCEL 2nd LACTIC ACID IF 1st LACTIC ACID IS LESS THAN 2
11/07/23 11:00
DC Protocol for Telemetry ONCE
Abnormal Lab Results
11/04/23
14:13
RBC 3.84 L 10^6/uL
(4.20-5.40)
Hgb 10.5 L g/dL
(12.0-16.0)
Hct 32.6 L %
(37.0-47.0)
MCHC 32.2 L g/dL
(33.0-37.0)
RDW 15.5 H %
(11.5-14.5)
Absolute Lymphs (auto) 0.7 L 10^3/uL
(1.2-3.4)
Neutrophils % 79.1 H %
(42.2-75.2)
Lymphocytes % 9.3 L %
(20.5-51.1)
BUN 20 H mg/dl
(7-17)
Glucose 198 H mg/dl
(70-99)
11/04/23 14:13
11/04/23 14:13
Vital Signs
Initial and Last Documented VS:
Initial Vital Signs
Temp Pulse Resp BP Pulse Ox
98.2 F 116 22 125/67 97
11/04/23 12:20 11/04/23 12:20 11/04/23 12:20 11/04/23 12:20 11/04/23 12:20
Last Documented Vital Signs
Temp Pulse Resp BP Pulse Ox
98.2 F 101 27 112/82 93
11/04/23 12:20 11/04/23 16:09 11/04/23 16:09 11/04/23 16:09 11/04/23 16:09
MDM/Problems Addressed
MDM/Problems Addressed:
Severe lymphedema she is likely not getting enough tissue penetration of antibiotic to treat her infection, will admit on IV antibiotics to the hospitalist service for further management
*Critical Care Note
Total Time (30-74mins, 75-104mins- exclusive of procedures): Not Applicable
ED Attending Note
-
Portions of this chart may have been created with voice recognition software.� Occasional wrong word or��sound alike� substitutions may have occurred due to the inherent limitations of voice recognition software.
Discharge Plan
Departure
Patient Disposition: Admit
Date of Disposition: 11/04/23
Time of Disposition: 15:02
Admit to: Med/Surg
Presentation/result/management discussed w/ accepting MD/DO: Hospitalist
Discharge Problem:
Cellulitis of left lower extremity, Failure of outpatient treatment
Prescriptions:
No Action
Xarelto 20 MG tablet
20 mg PO HS
albuterol sulfate 1 PUFF HFA aerosol inhaler
2 puff inhalation R Q4HPRN PRN (Reason: sob/wheezing)
folic acid 1 MG tablet
1 mg PO DAILY Qty: 7 0RF
atorvastatin 40 MG tablet
40 mg PO HS
fenofibrate nanocrystallized 48 MG tablet
48 mg PO HS
ascorbic acid (vitamin C) [Vitamin C] 500 MG tablet
500 mg PO BID Qty: 0 0RF
pantoprazole 40 MG tablet,delayed release (DR/EC)
40 mg PO DAILY
sertraline 50 MG tablet
50 mg PO HS
montelukast 10 MG tablet
10 mg PO DAILY
insulin glargine [Lantus Solostar U-100 Insulin] 100 unit/mL (3 mL) Insulin Pen
16 unit SC HS
furosemide 80 mg Tablet
120 mg PO DAILY
levetiracetam 500 mg Tablet
500 mg PO BID
fluticasone propion-salmeterol [Advair Diskus] 250-50 mcg/dose Blister With Device
1 inh INHALATION BID PRN (Reason: sob/wheezing)
spironolactone 25 mg Tablet
25 mg PO DAILY
acetaminophen 650 mg Tablet Extended Release
1,300 mg PO BIDPRN PRN (Reason: headache, mild pain)
furosemide 80 mg Tablet
80 mg PO DAILY@1400
levothyroxine [Synthroid] 125 mcg Tablet
125 mcg PO DAILY
digoxin 125 mcg (0.125 mg) Tablet
125 mcg PO DAILY
ferrous fumarate 325 mg (106 mg iron) Tablet
325 mg PO DAILY
potassium chloride 20 mEq tablet,ER particles/crystals
20 meq PO BID
metformin 500 mg tablet extended release 24 hr
500 mg PO BID
cephalexin 500 mg capsule
500 mg PO Q8H
verapamil 240 mg capsule,ext rel. pellets 24 hr
240 mg PO DAILY
zolpidem 12.5 mg tablet,ext release multiphase
12.5 mg PO HS
Patient Comments:
11/04/2023: last filled 09/13/23, 90 tabs for 90 days from [facility]
cholecalciferol (vitamin D3) [Vitamin D3] 25 mcg (1,000 unit) Tablet
50 mcg PO DAILY
Referrals:
Betsy Heard NP [Family Provider] -
Interventions
Interventions:
*Risk Screen - Suicide Last Done: 11/04/23 12:20
*General Assessment Last Done: 11/04/23 12:20
*Neglect/Abuse Screening Last Done: 11/04/23 12:20
*ED COVID-19 Vaccine History Last Done: 11/04/23 13:19
ED-Skin Assessment Last Done: 11/04/23 13:26
Discharge Date and Time
Print Language: SLOVAK
[2023-11-04] MEDS: MAXIPIME 2000 MG IV (14:16)
[2023-11-04 14:24] LABS: % Basophils 1.1 % (0-2); % Eosinophils 2.8 % (0-6); % Immature Granulocytes 0.4 % (0-0.5); % Lymphocytes 9.3 % (20.5-51.1); % Monocytes 7.3 % (1.7-9.3); % Neutrophils 79.1 % (42.2-75.2); Absolute Basophils 0.1 10^3/uL (0-0.2); Absolute Eosinophils 0.2 10^3/uL (0-0.7); Absolute Lymphocytes 0.7 10^3/uL (1.2-3.4); Absolute Monocytes 0.5 10^3/uL (0.1-0.6); Absolute Neutrophils 5.6 10^3/uL (1.4-6.5); Hematocrit 32.6 % (37.0-47.0); Hemoglobin 10.5 g/dL (12.0-16.0); Mean Corp Hgb Conc. 32.2 g/dL (33.0-37.0); Mean Corpuscular Hgb 27.3 pg (27.0-31.0); Mean Corpuscular Volume 84.9 fL (81.0-99.0); Mean Platelet Volume 9.6 fL (7.4-10.4); Nucleated Red Blood Cells % 0 %; Platelet Count 255 10^3/uL (130-400); Red Blood Cell Count 3.84 10^6/uL (4.20-5.40); Red Cell Dist. Width 15.5 % (11.5-14.5); White Blood Cell Count 7.1 10^3/uL (4.8-10.8)
[2023-11-04 14:35] LABS: Lactic Acid 1.9 mmol/L (0.7-2.0)
[2023-11-04 14:41] LABS: Blood Urea Nitrogen 20 mg/dl (7-17); Calcium 9.3 mg/dl (8.4-10.2); Carbon Dioxide 30 mmol/L (22-30); Chloride 102 mmol/L (98-107); Glucose 198 mg/dl (70-99); Sodium 138 mmol/L (135-145); eGFR > 60.00
--- NOTE | 2023-11-04 15:18 | HPS.HSE ---
Addendum entered and electronically signed by Kaylie Montes DO 11/04/23 17:27:
Addend to PMH and Social History:
#History of right meningioma s/p brain surgery /XRT at [place] in 2022
-continue Keppra, pt has outpatient Neurosurgery follow-up to address Keppra cessation
# History of Alcohol use- she drinks 2-3 oz of Vodka w soda nightly, no history of seizure from alcohol withdrawal, no history of withdrawal symptoms
-monitor off CIWA for now
Original Note:
Family Physician
-
Family Physician: Betsy Heard
Chief Complaint
-
LE edema
History of Present Illness
The patient is a 73 yo woman with PMH significant for A. fib anticoagulated with Xarelto, status post recent Watchman procedure, CAD, restrictive lung disease, diabetes with neuropathy, lower extremity lymphedema, diastolic congestive heart failure
and chronic lower extremity lymphedema, who presents to ED due to worsening redness and swelling of the left lower extremity, despite OP Keflex for 5 days. Redness is extending from right foot up past right knee proximally toward upper thigh. She
takes 120 mg PO Lasix in the am, and 80 mg PO Lasix nightly and says it has not been 'working' recently to decrease lymphedema. Last Xarelto dose was last night.
No fever, no chills, no CP, no SOB, no n/v/d, noted chronic LE edema.
ED txt:
IV Cefepime
Medical History
Past Medical History
Past Medical History: Reports Other
Additional Past Medical History:
Past medical history reviewed:
Diabetes mellitus
Diastolic congestive heart failure
Pulmonary hypertension
A. fib
Lower extremity lymphedema
Asthma
B complex deficiency
Insomnia
Benign adrenal mass (2003
Rosacea
History of kidney stone status post removal
DJD
Obesity
Recurrent lower extremity cellulitis
H. pylori infection
COVID
UTI
Diabetic ulcer of left foot
Surgical history:
Kidney stone removal and cystoscopy
Cholecystectomy
Tonsillar tummy
Cardiac cath and balloon angioplasty with stenting
Bladder suspension
Cardiac ablation
Cardioversion x2
Skin cancer removal
Social history: Lives with the family, denies smoking or alcohol use and she usually ambulate with and without embalmer assistant.
Family history: Positive for hypertension, diabetes and coronary artery disease
Past Surgical History: Reports Other (see above)
Social History
Unable to obtain full social history at this time due to: Other
Family History
Family History: Other
Allergies / Home Medications
Allergies reflects when Allergies were last updated in [facility].
Home Medications with original date entered in [facility]
Allergy/Medication List:
Allergies
Allergy/AdvReac Type Severity Reaction Status Date / Time
cat dander Allergy ASTHMA Verified 11/04/23 12:20
levofloxacin Allergy Hives Verified 11/04/23 12:20
[From Levaquin Leva-Carlos]
Sulfa (Sulfonamide Allergy Hives Verified 11/04/23 12:20
Antibiotics)
vancomycin [Vancomycin] Allergy Rash/red Verified 11/04/23 12:20
tino
syndrome
Home Medications
rivaroxaban 20 mg tablet (Xarelto) 20 mg PO HS Blood clot prevention/tx 03/21/17
albuterol sulfate 90 mcg/actuation aerosol inhaler 2 puff inhalation R Q4HPRN PRN sob/wheezing 09/27/19
folic acid 1 mg tablet 1 mg PO DAILY Supplement #7 tabs 02/20/20
atorvastatin 40 mg tablet 40 mg PO HS High cholesterol 04/23/21
fenofibrate nanocrystallized 48 mg tablet 48 mg PO HS High cholesterol 07/13/21
ascorbic acid (vitamin C) 500 mg tablet (Vitamin C) 500 mg PO BID Supplement #0 tabs 07/23/21
cholecalciferol (vitamin D3) 50 mcg (2,000 unit) tablet 2,000 units PO DAILY Supplement #0 tabs 07/23/21
montelukast 10 mg tablet 10 mg PO DAILY Allergies 11/30/21
pantoprazole 40 mg tablet,delayed release 40 mg PO DAILY Gastrointestinal issue 11/30/21
sertraline 50 mg tablet 50 mg PO HS Depression 11/30/21
insulin glargine 100 unit/mL (3 mL) subcutaneous pen (Lantus Solostar U-100 Insulin) 16 unit SC HS 06/28/22
verapamil 180 mg tablet,extended release 360 mg (2 x 180 mg) PO DAILY 30 days #60 tabs 07/02/22
furosemide 80 mg tablet 120 mg PO DAILY 08/08/23
levetiracetam 500 mg tablet 500 mg PO BID 08/11/23
acetaminophen 650 mg tablet,extended release 1,300 mg PO BIDPRN PRN headache, pain 08/22/23
digoxin 125 mcg (0.125 mg) tablet 125 mcg PO DAILY 08/22/23
ferrous fumarate 325 mg (106 mg iron) tablet 325 mg PO DAILY 08/22/23
fluticasone 250 mcg-salmeterol 50 mcg/dose blistr powdr for inhalation (Advair Diskus) 1 inh inhalation BID 08/22/23
furosemide 80 mg tablet 80 mg PO DAILY@1400 08/22/23
levothyroxine 125 mcg tablet (Synthroid) 125 mcg PO DAILY 08/22/23
metformin 500 mg tablet,extended release 24 hr 500 mg PO BID 08/22/23
potassium chloride 20 mEq tablet,extended release(part/cryst) 20 meq PO BID 08/22/23
spironolactone 25 mg tablet 25 mg PO DAILY 08/22/23
Review of Systems
-
A 12 point ROS was completed and negative except as noted: Yes
Physical Exam
Vital Signs
Vital Signs
Temp Pulse Resp BP Pulse Ox
98.2 F 109 26 102/42 91
11/04/23 12:20 11/04/23 15:00 11/04/23 15:00 11/04/23 15:00 11/04/23 15:00
Physical Exam
General: Well Developed, Well Nourished, No Apparent Distress, Comfortable and Conversant
HEENT: NormoCephalic, Anicteric and Moist mucous membranes
Respiratory: Clear
Cardiac: Irregular Rhythm and Tachycardia
GI: Soft, Non Tender and Non Distended
Musculoskeletal: No Clubbing, No Cyanosis, Edema, Left Lower Extremity and Edema, Right Lower Extremity (chronic insufficiency b/l LE, LE lymphedema b/l)
Skin: Warm and Dry
Psych: Calm
Laboratory Results
-
11/04/23 14:13
11/04/23 14:13
Laboratory Results
Lactic Acid 1.9 mmol/L (0.7-2.0) 11/04/23 14:13
Total Bilirubin Cancelled 11/04/23 14:13
AST Cancelled 11/04/23 14:13
ALT Cancelled 11/04/23 14:13
Alkaline Phosphatase Cancelled 11/04/23 14:13
Impression/Plan
-
IMPRESSION:
The patient is a 73 yo woman with PMH significant for A. fib anticoagulated with Xarelto, status post recent Watchman procedure, CAD, restrictive lung disease, diabetes with neuropathy, lower extremity lymphedema, diastolic congestive heart failure
and chronic lower extremity lymphedema, who presents to ED due to worsening redness and swelling of the left lower extremity, despite OP Keflex for 5 days. Redness is extending from right foot up past right knee proximally toward upper thigh.
ED txt: IV Cefepime
# LLE Cellulitis tracking up toward left thigh from foot, without other signs of systemic illness at this time
-blood cx obtained in ED
-IV Cefepime x 1 in ED, and will continue with IV Ancef and monitor clinically, expand txt if not improving by tomorrow, pt allergy to Vancomycin
- of note, patient w hx of cellulitis and Group G Strep bacteremia in 2021
-supportive care, elevated LE, consider NILAY wraps as well
#BL LE Lymphedema, no evidence for acute CHF exacerbation
-will give one dose of IV Lasix tonight and monitor I/O, daily weights, and resume PO Lasix tomorrow
#Diabetes mellitus
-Metformin
-Lantus 16 U nightly
-Diabetic diet
-SSI
#Diastolic congestive heart failure,not in exacerbation
-Lasix 120 in the am, 80 in pm, IV Lasix once tonight
-I/O, daily weights
-Spironolactone
#Pulmonary hypertension, stable
#A. fib
-monitor on tele
-continue Digoxin and Xarelto
#Asthma, not in exacerbation
#B complex deficiency
#Insomnia
#Benign adrenal mass (2003
#Rosacea
#History of kidney stone status post removal
#DJD
#Obesity
#H. pylori infection
DVT proph -continue Xarelto
Full Code
[2023-11-04] MEDS: LASIX 40 MG IV (16:38)
[2023-11-04] MEDS: NOVOLOG FLEXPEN-MODERATE RESISTANCE SC (20:43)
[2023-11-04] MEDS: GLUCOPHAGE XR EXTENDED RELEASE 500 MG PO (20:45)
[2023-11-04] MEDS: KEPPRA 500 MG PO (20:46)
[2023-11-04 22:00] LABS: Glucose - Point of Care 202 mg/dl (70-99)
[2023-11-04] MEDS: ANCEF 10 IV (22:20)
[2023-11-04] MEDS: LANTUS 0.160000000000000003 UNITS SC (22:22)
[2023-11-04] MEDS: XARELTO 20 MG PO (22:23)
[2023-11-04] MEDS: TRICOR 48 MG PO (22:23)
[2023-11-04] MEDS: LIPITOR 40 MG PO (22:23)
[2023-11-04] MEDS: ZOLOFT 50 MG PO (22:27)
[2023-11-04] MEDS: AMBIEN 5 MG PO (23:01)
[2023-11-05 03:00] VITALS: BP 121/68
[2023-11-05] MEDS: ANCEF 10 IV ×3 (05:24→22:38)
[2023-11-05 07:00] VITALS: BP 126/76
[2023-11-05 07:16] LABS: % Basophils 1.3 % (0-2); % Eosinophils 3.8 % (0-6); % Immature Granulocytes 0.4 % (0-0.5); % Lymphocytes 15.2 % (20.5-51.1); % Monocytes 7.7 % (1.7-9.3); % Neutrophils 71.6 % (42.2-75.2); Absolute Basophils 0.1 10^3/uL (0-0.2); Absolute Eosinophils 0.2 10^3/uL (0-0.7); Absolute Lymphocytes 0.8 10^3/uL (1.2-3.4); Absolute Monocytes 0.4 10^3/uL (0.1-0.6); Absolute Neutrophils 3.8 10^3/uL (1.4-6.5); Hematocrit 32.8 % (37.0-47.0); Hemoglobin 10.4 g/dL (12.0-16.0); Mean Corp Hgb Conc. 31.7 g/dL (33.0-37.0); Mean Corpuscular Hgb 27.5 pg (27.0-31.0); Mean Corpuscular Volume 86.8 fL (81.0-99.0); Mean Platelet Volume 10.2 fL (7.4-10.4); Nucleated Red Blood Cells % 0 %; Platelet Count 243 10^3/uL (130-400); Red Blood Cell Count 3.78 10^6/uL (4.20-5.40); Red Cell Dist. Width 15.5 % (11.5-14.5); White Blood Cell Count 5.3 10^3/uL (4.8-10.8)
[2023-11-05 07:31] LABS: ALT (SGPT) < 10 U/L (0-35); AST (SGOT) 20 U/L (14-36); Albumin 3.2 g/dl (3.5-5.0); Alkaline Phosphatase 86 U/L (38-126); Blood Urea Nitrogen 18 mg/dl (7-17); Carbon Dioxide 26 mmol/L (22-30); Chloride 106 mmol/L (98-107); Estimated Creatinine Clearance 84 ml/min; Glucose 97 mg/dl (70-99); Potassium 4.2 mmol/L (3.5-5.1); Sodium 140 mmol/L (135-145); Total Bilirubin 0.5 mg/dl (0.2-1.3); Total Protein 6.2 g/dl (6.3-8.2); eGFR > 60.00
[2023-11-05 07:56] LABS: Glucose - Point of Care 110 mg/dl (70-99)
--- NOTE | 2023-11-05 08:07 | W.PN.HOSP.TC ---
Today's Communication/Plan
-
see bold
Assessment / Plan
Assessment / Plan
Gen: NAD, AAOx3.
Eyes: EOMI, PERRLA, no scleral icterus.
Neck: supple.
CV: tachy, irreg/irreg, +S1/S2, no m/r/g.
Resp: CTAB, no rales, wheezes, or rhonchi.
Abd: +BS, soft, NT, ND
Skin: very mild LLE cellulitis
Neuro: CN 2-12 intact, non-focal.
Psych: Normal mood and affect.
CT brain 10/15/23: No acute intracranial abnormality. Stable chronic findings, as above.
LLE Cellulitis:
-In the setting of chronic bilateral lower extremity lymphedema
-tracking up toward left thigh from foot without other signs of systemic illness on admission
-IV Cefepime x 1 in ED
-follow BCxs
-cont Ancef
-of note, patient w hx of cellulitis and Group G Strep bacteremia in 2021
-supportive care, elevated LE, start NILAY wraps as well
Chronic HFpEF:
-cont Lasix/Aldactone
-start BB
-I/O, daily weights
Persistent atrial fibrillation:
-poorly controlled rate
-cont Dig/Xarelto/Verapamil
-start BB
h/o right meningioma:
-s/p brain surgery/XRT at [place] in 2022
-continue Keppra
-pt has outpatient Neurosurgery follow-up to address Keppra cessation
Other problems:
DM2: cont Metformin/Lantus/SSI/accuchecks
Essential hypertension: cont Lasix/Aldactone/Verapamil
Asthma, not in acute exacerbation
B complex deficiency
Insomnia
Benign adrenal mass (2003)
Rosacea
h/o kidney stone status post removal
DJD
Morbid Obesity due to excess calories: Encourage weight loss, affects all aspects of care
h/o H. pylori infection
h/o Alcohol use: drinks 2-3 oz of Vodka w soda nightly, no history of seizure from alcohol withdrawal, no history of withdrawal symptoms
FULL/Xarelto
Anticipated Discharge: Within 24 hours
Subjective/Interval History
-
Date of Service: November 05, 2023
Denies chest pain or shortness of breath
Objective Data
-
Labs:
Laboratory Results
11/05/23
06:02
WBC 5.3
Hgb 10.4 L
Hct 32.8 L
Plt Count 243
Sodium 140
Potassium 4.2
Chloride 106
Carbon Dioxide 26
BUN 18 H
Creatinine 0.7
Glucose 97
Calcium 9.0
Total Bilirubin 0.5
AST 20
ALT < 10
Alkaline Phosphatase 86
Vital Signs:
Vital Signs
Temp Pulse Resp BP Pulse Ox
98.1 F 101 16 121/68 92
11/05/23 03:00 11/05/23 03:00 11/05/23 03:00 11/05/23 03:00 11/05/23 03:00
I&O
11/04/23 11/05/23 11/06/23
06:59 06:59 06:59
Intake Total 120 / 120
Output Total 1680 / 1680
Balance -1560 / -1560
[2023-11-05] MEDS: NOVOLOG FLEXPEN-MODERATE RESISTANCE SC ×2 (08:20→13:13)
[2023-11-05] MEDS: GLUCOPHAGE XR EXTENDED RELEASE 500 MG PO ×2 (08:22→19:38)
[2023-11-05] MEDS: LASIX 120 MG PO (08:22)
[2023-11-05] MEDS: FOLVITE 1 MG PO (08:22)
[2023-11-05] MEDS: CALAN EXTENDED RELEASE 240 MG PO (08:22)
[2023-11-05] MEDS: LANOXIN 125 MCG PO (08:23)
[2023-11-05] MEDS: ALDACTONE 25 MG PO (08:29)
[2023-11-05] MEDS: FEOSOL 325 MG PO (08:29)
[2023-11-05] MEDS: PROTONIX 40 MG PO (08:29)
[2023-11-05] MEDS: SINGULAIR 10 MG PO (08:30)
[2023-11-05] MEDS: KEPPRA 500 MG PO ×2 (08:30→19:38)
[2023-11-05] MEDS: SYNTHROID 125 MCG PO (08:30)
[2023-11-05 11:00] VITALS: BP 117/59
[2023-11-05 12:00] LABS: Glucose - Point of Care 147 mg/dl (70-99)
--- NOTE | 2023-11-05 13:45 | PTCARENOTE ---
Assumed care at 0700. AOx3. VSS. Afib on telemetry, HR 90-110s. Able to ambulate to bathroom w/ assistance x1 and RW. Purewick discontinued. Complained of heartburn after eating breakfast. Dr. Chelsea ya.
[2023-11-05] MEDS: TOPROL XL 25 MG PO (14:47)
[2023-11-05] MEDS: LASIX 80 MG PO (14:48)
[2023-11-05 15:00] VITALS: BP 104/54
[2023-11-05 16:43] LABS: Glucose - Point of Care 188 mg/dl (70-99)
[2023-11-05 19:00] VITALS: BP 107/47
[2023-11-05] MEDS: BACTROBAN 2% OINTMENT 1 APPLIC TOPICAL (19:38)
[2023-11-05] MEDS: NOVOLOG FLEXPEN-MODERATE RESISTANCE 1 UNITS SC (19:38)
--- NOTE | 2023-11-05 19:44 | PTCARENOTE ---
Offers no complaints this evening. Assessment unchanged from prior. Left w/ call duque in reach.
[2023-11-05 21:58] LABS: Glucose - Point of Care 198 mg/dl (70-99)
[2023-11-05] MEDS: LANTUS 0.160000000000000003 UNITS SC (22:38)
[2023-11-05] MEDS: XARELTO 20 MG PO (22:39)
[2023-11-05] MEDS: ZOLOFT 50 MG PO (22:39)
[2023-11-05] MEDS: TRICOR 48 MG PO (22:39)
[2023-11-05] MEDS: LIPITOR 40 MG PO (22:39)
[2023-11-05 23:39] VITALS: BP 112/48
[2023-11-06 03:15] VITALS: BP 104/52
[2023-11-06] MEDS: ANCEF 10 IV ×2 (05:51→13:30)
[2023-11-06 07:22] VITALS: BP 116/58
[2023-11-06 07:43] LABS: Glucose - Point of Care 123 mg/dl (70-99)
[2023-11-06] MEDS: LASIX 120 MG PO (08:42)
[2023-11-06] MEDS: LANOXIN 125 MCG PO (08:43)
[2023-11-06] MEDS: TOPROL XL 25 MG PO (08:43)
[2023-11-06] MEDS: PROTONIX 40 MG PO (08:43)
[2023-11-06] MEDS: SINGULAIR 10 MG PO (08:43)
[2023-11-06] MEDS: GLUCOPHAGE XR EXTENDED RELEASE 500 MG PO (08:43)
[2023-11-06] MEDS: SYNTHROID 125 MCG PO (08:43)
[2023-11-06] MEDS: KEPPRA 500 MG PO (08:43)
[2023-11-06] MEDS: FEOSOL 325 MG PO (08:43)
[2023-11-06] MEDS: CALAN EXTENDED RELEASE 240 MG PO (08:43)
[2023-11-06] MEDS: FOLVITE 1 MG PO (08:43)
[2023-11-06] MEDS: NOVOLOG FLEXPEN-MODERATE RESISTANCE SC ×2 (08:44→12:14)
[2023-11-06] MEDS: ALDACTONE 25 MG PO (08:44)
[2023-11-06] MEDS: BACTROBAN 2% OINTMENT 1 APPLIC TOPICAL (08:45)
--- NOTE | 2023-11-06 08:53 | W.PN.HOSP.TC ---
Today's Communication/Plan
-
Discharge today
Assessment / Plan
Assessment / Plan
Gen: NAD, AAOx3.
Eyes: EOMI, PERRLA, no scleral icterus.
Neck: supple.
CV: tachy, irreg/irreg, +S1/S2, no m/r/g.
Resp: CTAB, no rales, wheezes, or rhonchi.
Abd: +BS, soft, NT, ND
Skin: very mild LLE cellulitis
Neuro: CN 2-12 intact, non-focal.
Psych: Normal mood and affect.
CT brain 10/15/23: No acute intracranial abnormality. Stable chronic findings, as above.
LLE Cellulitis:
-In the setting of chronic bilateral lower extremity lymphedema
-tracking up toward left thigh from foot without other signs of systemic illness on admission
-IV Cefepime x 1 in ED
-Blood cultures negative to date, improving on IV Ancef.
-Medically stable for discharge on Keflex 1 g 4 times daily to complete a 7-day course
-of note, patient w hx of cellulitis and Group G Strep bacteremia in 2021
-supportive care, elevated LE, start NILAY wraps as well
Chronic HFpEF:
-cont Lasix/Aldactone
-start BB
-I/O, daily weights
Persistent atrial fibrillation:
-poorly controlled rate
-cont Dig/Xarelto/Verapamil
-Started metoprolol succinate 25 mg daily, will send prescription
h/o right meningioma:
-s/p brain surgery/XRT at [place] in 2022
-continue Keppra
-pt has outpatient Neurosurgery follow-up to address Keppra cessation
Other problems:
DM2: cont Metformin/Lantus/SSI/accuchecks
Essential hypertension: cont Lasix/Aldactone/Verapamil
Asthma, not in acute exacerbation
B complex deficiency
Insomnia
Benign adrenal mass (2003)
Rosacea
h/o kidney stone status post removal
DJD
Morbid Obesity due to excess calories: Encourage weight loss, affects all aspects of care
h/o H. pylori infection
h/o Alcohol use: drinks 2-3 oz of Vodka w soda nightly, no history of seizure from alcohol withdrawal, no history of withdrawal symptoms
FULL/Xarelto
Anticipated Discharge: Today
Subjective/Interval History
-
Date of Service: November 06, 2023
Patient reports improvement in her left lower extremity erythema. She never had pain. No fever, no vomiting. She is eager for discharge.
Objective Data
-
Vital Signs:
Vital Signs
Temp Pulse Resp BP Pulse Ox
97.5 F 74 20 104/52 94
11/06/23 03:15 11/06/23 03:15 11/06/23 03:15 11/06/23 03:15 11/06/23 03:15
I&O
11/05/23 11/06/23 11/07/23
06:59 06:59 06:59
Intake Total 120 / 120 1800 / 1800
Output Total 1680 / 1680
Balance -1560 / -1560 1800 / 1800
[2023-11-06 10:22] VITALS: BMI 43.1
--- NOTE | 2023-11-06 11:08 | CM ---
Addendum entered by Marisa Chavez 11/06/23 13:08:
Referral accepted for thru [facility]
Fax - [phone]
Original Note:
Met with pt at bedside
Lives with her son, [id number], grandchildren and mother in a 2 story home
Has chair lift to acces bed/bath. Son and family primarily do cleaning/cooking. Ambulates with walker, assist as needed
DME - Chair lift, rolling walker, cane
SNF - [facility] in past
HH - current with [facility]
Has ride at d/c
PCP - Dr Betsy Heard
Pharm - [facility]
Will send referral in [facility] for IVAN to [facility]
Discussed CLOUD
Plan - anticipate d/c to home with [facility]
[2023-11-06 11:30] VITALS: BP 97/63
[2023-11-06 12:11] LABS: Glucose - Point of Care 139 mg/dl (70-99)
[2023-11-06 12:58] VITALS: BP 100/59; PULSE 65; O2SAT 96
--- NOTE | 2023-11-06 13:39 | W.DCSUMMARY ---
Discharge Summary
Discharge Data
Date of Admission: 11/04/23
Date of Discharge: 11/06/23
-
Pending Results: No
Hospital Course
Discharge diagnosis:
Acute left lower extremity cellulitis
Chronic bilateral lower extremity lymphedema
Chronic heart failure with a preserved ejection fraction
Persistent atrial fibrillation
History of right meningioma
Type 2 diabetes
Morbid obesity
Hospital course:
73-year-old female with a past medical history of morbid obesity, type 2 diabetes, persistent atrial fibrillation on Xarelto, and chronic bilateral lower extremity lymphedema presents with redness and swelling of her left lower extremity. Patient
was seen by her PCP, and prescribed Keflex. Despite taking it for 5 days, the redness and swelling has worsened.
Patient was treated with Ancef 2 g IV every 8 hours. After several days, her erythema improved. She received NILAY wrappings for her lower extremity lymphedema. She was seen by PT, who recommended home care. Patient is medically stable for
discharge. She will be discharged on an increased dose of Keflex, 2 g 4 times a day to complete a 7-day course. She has been counseled to continue compression therapy for her lymphedema. She needs to follow-up with her primary care doctor in 1
week.
Disposition: Home with home care
Discharge planning: Required 36 minutes
Discharge Plan
-
Patient Disposition: Home (Routine Discharge)
Discharge Diagnosis/Procedures: Left lower extremity cellulitis, lymphedema
Condition: Fair
Diet: 2 Gram Sodium
Activity: As tolerated
Driving Restrictions: As prior to admission
Activity Restrictions/Additional Instructions:
Please compress your lower extremities daily.
You were also started on a beta-yash called metoprolol to help with your heart rate for atrial fibrillation.
Please take your antibiotics as prescribed, follow-up with your primary care doctor in 1 week.
Referrals:
Betsy Heard NP [Family Provider] - in one week
Prescriptions:
New
cephalexin 500 mg tablet
1,000 mg PO QID 6 Days Qty: 48 0RF
metoprolol succinate 25 mg Tablet Extended Release 24 Hr
25 mg PO DAILY Qty: 30 0RF
Continued
Xarelto 20 MG tablet
20 mg PO HS
albuterol sulfate 1 PUFF HFA aerosol inhaler
2 puff inhalation R Q4HPRN PRN (Reason: sob/wheezing)
folic acid 1 MG tablet
1 mg PO DAILY Qty: 7 0RF
atorvastatin 40 MG tablet
40 mg PO HS
fenofibrate nanocrystallized 48 MG tablet
48 mg PO HS
ascorbic acid (vitamin C) [Vitamin C] 500 MG tablet
500 mg PO BID Qty: 0 0RF
pantoprazole 40 MG tablet,delayed release (DR/EC)
40 mg PO DAILY
sertraline 50 MG tablet
50 mg PO HS
montelukast 10 MG tablet
10 mg PO DAILY
insulin glargine [Lantus Solostar U-100 Insulin] 100 unit/mL (3 mL) Insulin Pen
16 unit SC HS
furosemide 80 mg Tablet
120 mg PO DAILY
levetiracetam 500 mg Tablet
500 mg PO BID
fluticasone propion-salmeterol [Advair Diskus] 250-50 mcg/dose Blister With Device
1 inh INHALATION BID PRN (Reason: sob/wheezing)
spironolactone 25 mg Tablet
25 mg PO DAILY
acetaminophen 650 mg Tablet Extended Release
1,300 mg PO BIDPRN PRN (Reason: headache, mild pain)
furosemide 80 mg Tablet
80 mg PO DAILY@1400
levothyroxine [Synthroid] 125 mcg Tablet
125 mcg PO DAILY
digoxin 125 mcg (0.125 mg) Tablet
125 mcg PO DAILY
ferrous fumarate 325 mg (106 mg iron) Tablet
325 mg PO DAILY
potassium chloride 20 mEq tablet,ER particles/crystals
20 meq PO BID
metformin 500 mg tablet extended release 24 hr
500 mg PO BID
verapamil 240 mg capsule,ext rel. pellets 24 hr
240 mg PO DAILY
zolpidem 12.5 mg tablet,ext release multiphase
12.5 mg PO HS
Patient Comments:
11/04/2023: last filled 09/13/23, 90 tabs for 90 days from [facility]
cholecalciferol (vitamin D3) [Vitamin D3] 25 mcg (1,000 unit) Tablet
50 mcg PO DAILY
Discontinued
cephalexin 500 mg capsule
500 mg PO Q8H
Discharge Orders:
Discharge Patient (As Directed); Ordered 11/06/23
Ordered By: Niles Lombardi
Discharge Date and Time
Discharge Date/Time: 11/06/23 15:28
Print Language: OCCITAN
== END 2023-11-06 15:28 | disposition home health service (06) | DRG 603 ==
LOC: 3 WEST ACU 17:28
PROVIDERS: Physician Assistant; ADMITTING PHYSICIAN Internal Medicine; ATTENDING PHYSICIAN Family Medicine; EMERGENCY PHYSICIAN Emergency Medicine; FAMILY PHYSICIAN Internal Medicine
DX: L03.116 Cellulitis of left lower limb (principal); I50.32 Chronic diastolic (congestive) heart failure; I48.19 Other persistent atrial fibrillation; Z68.41 Body mass index [BMI] 40.0-44.9, adult; I27.20 Pulmonary hypertension, unspecified; E11.40 Type 2 diabetes mellitus with diabetic neuropathy, unspecified; I11.0 Hypertensive heart disease with heart failure; E03.9 Hypothyroidism, unspecified; E66.01 Morbid (severe) obesity due to excess calories; J45.909 Unspecified asthma, uncomplicated; I89.0 Lymphedema, not elsewhere classified; E78.00 Pure hypercholesterolemia, unspecified; G47.00 Insomnia, unspecified; I25.10 Atherosclerotic heart disease of native coronary artery without angina pectoris; I25.2 Old myocardial infarction; L71.9 Rosacea, unspecified; M19.90 Unspecified osteoarthritis, unspecified site; E27.9 Disorder of adrenal gland, unspecified; Z79.01 Long term (current) use of anticoagulants; Z79.4 Long term (current) use of insulin; Z79.51 Long term (current) use of inhaled steroids; Z79.84 Long term (current) use of oral hypoglycemic drugs; Z79.890 Hormone replacement therapy; Z79.899 Other long term (current) drug therapy; Z95.818 Presence of other cardiac implants and grafts; Z87.891 Personal history of nicotine dependence; Z86.011 Personal history of benign neoplasm of the brain; Z85.828 Personal history of other malignant neoplasm of skin; Z86.19 Personal history of other infectious and parasitic diseases; Z95.5 Presence of coronary angioplasty implant and graft; Z88.1 Allergy status to other antibiotic agents; Z88.2 Allergy status to sulfonamides; Z82.49 Family history of ischemic heart disease and other diseases of the circulatory system
CPT/HCPCS: 80048; 80053; 82962; 83605; 84132; 85025; 87040; 96374; 97116; 97162; 99284

== ENCOUNTER → 2023-11-15 06:50 | Day surgery (SDC) | payer MEDICARE, OTHER, SELFPAY ==
[2023-11-15 07:28] VITALS: BMI 44.1
== END ==
LOC: CATH 06:50
PROVIDERS: ATTENDING PHYSICIAN Internal Medicine Cardiovascular Disease; FAMILY PHYSICIAN Internal Medicine; OTHER PHYSICIAN Internal Medicine Cardiovascular Disease
DX: I48.91 Unspecified atrial fibrillation (principal); I08.1 Rheumatic disorders of both mitral and tricuspid valves; I08.8 Other rheumatic multiple valve diseases; I48.0 Paroxysmal atrial fibrillation; I50.30 Unspecified diastolic (congestive) heart failure; E11.9 Type 2 diabetes mellitus without complications; R29.6 Repeated falls
CPT/HCPCS: 93312; 93320; 93325

== ENCOUNTER → 2023-12-08 12:36 | Outpatient (REF) | payer MEDICARE, OTHER, SELFPAY | LOC: HWRAD 12:36 | PROVIDERS: ATTENDING PHYSICIAN Physician Assistant Surgical; FAMILY PHYSICIAN Internal Medicine | DX: M25.512 Pain in left shoulder (principal) | CPT/HCPCS: 73200 ==

== ENCOUNTER 2023-12-12 07:28 | Inpatient (IN) | payer MEDICARE, OTHER, SELFPAY ==
--- NOTE | 2023-11-13 09:35 | CM ---
Patient is scheduled for an elective L Reverse TSA on 12/12/23. Spoke with patient prior to surgery. Introduced role of Orthopedic Navigator. Patient reports that she lives in a two story home (one step to0 enter and a stair glide to the second
floor). Her 98 year old mother, son, [id number]-lyj and grandchildren live with her. Currently she functions independently using a rollator. She also has a rolling walker. She has had VN services. PCP is Betsy Heard.
Discussed orthopedic program and post surgical plans. Reviewed anticipated length of stay and assistance that she may need at discharge. Patient states that, even though someone is home with her all the time, she is unsure if they will be able to
assist her. As a result, and because she uses a rollator top walk, she feels she will need SNF rehab. She wants to go to [facility] as she has been there in the past. frequested additional options however patient was unable to provide any.
Patient will complete online education.
Plan: Orthopedic Navigator will be involved in the care of patient after surgery and will reassess discharge needs at that time.
[2023-11-20 12:32] VITALS: BMI 43.1
[2023-11-20 14:09] LABS: Hematocrit 36.2 % (37.0-47.0); Hemoglobin 11.5 g/dL (12.0-16.0); Mean Corp Hgb Conc. 31.8 g/dL (33.0-37.0); Mean Corpuscular Hgb 27.4 pg (27.0-31.0); Mean Corpuscular Volume 86.2 fL (81.0-99.0); Mean Platelet Volume 10.2 fL (7.4-10.4); Platelet Count 207 10^3/uL (130-400); Red Cell Dist. Width 16.1 % (11.5-14.5); White Blood Cell Count 7.1 10^3/uL (4.8-10.8)
[2023-11-20 15:18] LABS: Glycohemoglobin (HgbA1c) 8.1 % (4.0-5.6)
[2023-11-20 15:26] LABS: ALT (SGPT) < 10 U/L (0-35); AST (SGOT) 17 U/L (14-36); Albumin 3.7 g/dl (3.5-5.0); Alkaline Phosphatase 100 U/L (38-126); Blood Urea Nitrogen 19 mg/dl (7-17); Calcium 9.3 mg/dl (8.4-10.2); Carbon Dioxide 26 mmol/L (22-30); Chloride 102 mmol/L (98-107); Estimated Creatinine Clearance 72 ml/min; Glucose 210 mg/dl (70-99); Sodium 138 mmol/L (135-145); Total Bilirubin 0.8 mg/dl (0.2-1.3); Total Protein 6.7 g/dl (6.3-8.2); eGFR > 60.00
[2023-12-12] VITALS (16 sets, daily range): BP systolic 99–117; BP diastolic 58–94; BMI 43.1; BMI 44.8
[2023-12-12 07:52] LABS: Glucose - Point of Care 189 mg/dl (70-99)
[2023-12-12] MEDS: TYLENOL 1000 MG PO (08:15)
[2023-12-12] MEDS: NORMOSOL-R 1000 IV ×2 (08:15→13:13)
[2023-12-12] MEDS: NOVOLOG vial 2 UNITS SC ×2 (08:30→13:09)
[2023-12-12 12:32] LABS: Glucose - Point of Care 169 mg/dl (70-99)
[2023-12-12] MEDS: TYLENOL 650 MG PO ×2 (14:28→20:55)
--- NOTE | 2023-12-12 15:48 | PTCARENOTE ---
Pt arrived to [facility] from PACU s/p L reverse TSA. NV + left radial pulse, sensation decreased, patient able to wiggle fingers. LUE NWB, sling intact, L shoulder aquacel with small amount of drainage. On 4L NC satting 95%, IVF infusing. Pt oriented
to to call duque and room, bed locked in lowest position, call duque within reach.
[2023-12-12] MEDS: SYNTHROID 125 MCG PO (16:57)
[2023-12-12] MEDS: GLUCOPHAGE XR EXTENDED RELEASE 500 MG PO (16:57)
[2023-12-12] MEDS: PROTONIX 40 MG PO (16:57)
[2023-12-12] MEDS: TYLENOL PO (16:57)
[2023-12-12] MEDS: SINGULAIR 10 MG PO (16:57)
[2023-12-12] MEDS: ANCEF 5 IV (17:00)
[2023-12-12 17:04] LABS: Glucose - Point of Care 330 mg/dl (70-99)
[2023-12-12] MEDS: NOVOLOG FLEXPEN-MODERATE RESISTANCE 7 UNITS SC (17:06)
[2023-12-12] MEDS: NEURONTIN 300 MG PO (20:55)
[2023-12-12] MEDS: SENOKOT 17.2 MG PO (20:55)
[2023-12-12] MEDS: COLACE 100 MG PO (20:55)
[2023-12-12] MEDS: LOW STRENGTH ASPIRIN 81 MG PO (20:55)
[2023-12-12 21:43] LABS: Glucose - Point of Care 442 mg/dl (70-99)
[2023-12-12 22:17] LABS: Glucose 377 mg/dl (70-99)
[2023-12-12] MEDS: LIPITOR 40 MG PO (23:02)
[2023-12-12] MEDS: AMBIEN 10 MG PO (23:02)
[2023-12-12] MEDS: BACTROBAN 2% OINTMENT 1 APPLIC NASAL (23:02)
[2023-12-12] MEDS: SERAX 10 MG PO (23:02)
[2023-12-12] MEDS: ZOLOFT 50 MG PO (23:02)
[2023-12-12] MEDS: TRICOR 48 MG PO (23:02)
[2023-12-12] MEDS: LANTUS 0.22 UNITS SC (23:02)
[2023-12-13] VITALS (8 sets, daily range): BP systolic 96–119; BP diastolic 55–70; PULSE 86; O2SAT 97; BMI 46.0
[2023-12-13 00:37] LABS: Glucose - Point of Care 357 mg/dl (70-99)
[2023-12-13] MEDS: TYLENOL 650 MG PO ×7 (00:54→23:55)
[2023-12-13] MEDS: NOVOLOG FLEXPEN 9 UNITS SC (00:55)
[2023-12-13] MEDS: ANCEF 5 IV (01:00)
[2023-12-13] MEDS: TYLENOL PO (04:45)
[2023-12-13] MEDS: SYNTHROID 125 MCG PO (05:33)
[2023-12-13 08:16] LABS: Glucose - Point of Care 300 mg/dl (70-99)
[2023-12-13] MEDS: LANOXIN 125 MCG PO ×2 (08:38→12:43)
[2023-12-13] MEDS: TOPROL XL 25 MG PO (08:38)
[2023-12-13] MEDS: GLUCOPHAGE XR EXTENDED RELEASE 500 MG PO ×2 (08:39→17:18)
[2023-12-13] MEDS: VIBRAMYCIN 100 MG PO ×2 (08:39→21:40)
[2023-12-13] MEDS: ALDACTONE 25 MG PO (08:39)
[2023-12-13] MEDS: COLACE 100 MG PO (08:39)
[2023-12-13] MEDS: CARDIZEM CD 240 MG PO (08:39)
[2023-12-13] MEDS: NEURONTIN 300 MG PO ×2 (08:39→21:39)
[2023-12-13] MEDS: SINGULAIR 10 MG PO (08:40)
[2023-12-13] MEDS: PROTONIX 40 MG PO (08:40)
[2023-12-13] MEDS: NOVOLOG FLEXPEN-MODERATE RESISTANCE 7 UNITS SC ×2 (08:40→17:17)
[2023-12-13] MEDS: SENOKOT 17.2 MG PO (08:40)
[2023-12-13] MEDS: BACTROBAN 2% OINTMENT 1 APPLIC NASAL ×2 (08:40→21:36)
[2023-12-13] MEDS: LOW STRENGTH ASPIRIN 81 MG PO ×2 (08:40→21:39)
--- NOTE | 2023-12-13 09:18 | CM ---
Reviewed chart and held rounds with PT, OT and nursing. Patient admitted as planned for elective L Rev TSA. Met with patient at bedside. Confirmed information previously obtained for assessment. Also discussed discharge plans. The plan is for
patient to go to a SNF for rehab. She selects [facility].
Referral and completed PASRR sent to [facility]. Spoke with Beatriz, admissions liaison who confirms their ability to accept patient today once authorization is received.
Report: [phone]

Call placed to [facility]. Precert initiated and clinical faxed to [phone]. reference # [id number].
[2023-12-13] MEDS: LASIX 40 MG IV ×2 (09:28→15:47)
[2023-12-13] MEDS: ProAmatine 5 MG PO ×3 (09:28→17:18)
--- NOTE | 2023-12-13 11:15 | W.PN.ORTHO ---
Today's Communication / Plan
-
d/c when stable
Assessment
.
Distal Motor Intact: Yes
Dressing:
Clean, dry and intact.
Assessment:
Acute on chronic HFpEF/pulmonary [id number] on echo 06/2022
-hypoxemia-b/l 3+ pitting edema on exam with SOB and diminished breath sounds
-BNP, CXR--resume Lasix IV 40mg bid which is reduced due to hypotension -add Midodrine to maintain BP to tolerate diuresis-check BMP
Persistent Afib-now off oac-asa 81mg-s/p Ttxiquag-vjpy-agfts EKG-uninterrupted Dogoxin, Diltiazem and Metoprolol
ML-itwdnmdp-nwoqys, MR-moderate
Prolonged QT
HTN-now pcoaybpyzrd-Nguucsfrd-adxhqij
HLD-statin
PAD
CAD-GDMT
Restrictive lung disease
Hx tobacco
--+ nebs and incentive spirometry given hypoxia
Seizure disorder
Ambulatory dysfunction/falls-fall precautions
Hx SDH
Meningioma-s/p craniotomy
Morbid obesity-BMI 44.8
Type 2 IDDM-A1C 8.1-currently hyperglycemic-increase Lantus and monitor--abx ppx OP to reduce infection risk
Adrenal tumor-being monitored
Hx Group G strep w/ cellulitis foot wound
Hx UTI w/ sepsis
Lymphedema
Anemia-iron deficiency component-hgb stable
Daily ETOH
Insomnia
Plan
.
Surgery / Date: Lindy Doan 12/12/23
DVT Prophylaxis: Aspirin (81mg bid)
Activity:
Out of bed.
PT/OT
Discharge Plan: SNF
Subjective
.
.:
SOB
Vital Signs and Labs
.
Vital Signs and Labs:
Lab Results
11/20/23 12:29
12/12/23 21:56
Temp Pulse Resp BP Pulse Ox
98.1 F 101 16 106/65 93
12/13/23 03:03 12/13/23 08:32 12/13/23 08:32 12/13/23 07:20 12/13/23 08:32
Non-invasive Hgb result: 10.8
Physical Exam
-
HEENT: No pallor, cyanosis, or jaundice. Throat clear.
NECK: Supple. No JVD.
RESPIRATORY: diminished.
CVS: S1, S2 normal. RRR.� No murmur, rub or gallop.
ABDOMEN: Soft, non-tender. No distension. BS+/normal.
EXTREMITIES: 3+ pitting edema, calves NT
DIRECTOR CLIENT SERVICES: AOx3. No focal deficits. dehydrogenation supervisor grossly intact
[2023-12-13 12:08] LABS: NT-proBNP 3720 pg/ml
[2023-12-13 12:13] LABS: Blood Urea Nitrogen 28 mg/dl (7-17); Calcium 9.3 mg/dl (8.4-10.2); Carbon Dioxide 28 mmol/L (22-30); Chloride 100 mmol/L (98-107); Estimated Creatinine Clearance 66 ml/min; Glucose 249 mg/dl (70-99); Potassium 4.4 mmol/L (3.5-5.1); Sodium 136 mmol/L (135-145); eGFR > 60.00
[2023-12-13 12:21] LABS: Glucose - Point of Care 299 mg/dl (70-99)
[2023-12-13] MEDS: NOVOLOG FLEXPEN-MODERATE RESISTANCE 5 UNITS SC (12:42)
[2023-12-13] MEDS: LANTUS 0.26 UNITS SC (12:42)
--- NOTE | 2023-12-13 14:46 | PN.CDI ---
CDI
- -
CDI:
Physician Documentation Request
Admit Date: 12/12/23 07:28
Dear Doctor Franki/DAINA,
Please review the following and provide your response in the progress notes.
Clinical Indicators:
Pt admitted with OA left shoulder/ S/P L Revrese TSA 12/12/23
Orthopedic note 12/12, 'HFpEF...hypoxemia-b/l 3+ pitting edema on exam with SOB and diminished breath sounds....resume Lasix IV 40mg bid which is reduced due to hypotension...'
Per home Meds pt is on 120 mg of PO Lasix am/80 MG PO @ 1400 and Spironolactone 25 mg daily PO
BNP 3720
Please provide a diagnosis for the above findings /treatment of IV Lasix BID 40 mg
Acute on Chronic Diastolic CHF
Chronic Diastolic CHF only
Other (please specify )
Use of terms such as suspected, likely, concern for, or probable (associated with a specific diagnosis that is being evaluated, monitored, or treated as if it exists) are acceptable and can be coded in the inpatient setting, when documented at the
time of discharge.
Thank you,
Afia Kidd RN
CDI Specialist
[place] [facility]
Please use your independent medical judgment in providing your response.
[2023-12-13] MEDS: XOPENEX 0.63 MG INHALANT SOLUTION INH ×2 (15:22→20:47)
[2023-12-13 17:17] LABS: Glucose - Point of Care 318 mg/dl (70-99)
[2023-12-13] MEDS: ADVAIR HFA 115/21 MCG INHALER 2 PUFF INH (20:47)
[2023-12-13] MEDS: COLACE PO (21:39)
[2023-12-13] MEDS: SENOKOT PO (21:39)
[2023-12-13] MEDS: ZOLOFT 50 MG PO (21:40)
[2023-12-13] MEDS: TRICOR 48 MG PO (21:40)
[2023-12-13] MEDS: LIPITOR 40 MG PO (21:41)
[2023-12-13] MEDS: SERAX 10 MG PO (21:41)
[2023-12-13 22:29] LABS: Glucose - Point of Care 312 mg/dl (70-99)
[2023-12-13] MEDS: AMBIEN 10 MG PO (23:55)
[2023-12-14] MEDS: TYLENOL PO (03:29)
[2023-12-14 03:39] VITALS: BP 115/64
[2023-12-14] MEDS: SYNTHROID 125 MCG PO (04:44)
[2023-12-14] MEDS: TYLENOL 650 MG PO ×4 (04:44→15:04)
[2023-12-14 05:30] VITALS: BMI 46.1
[2023-12-14 05:55] VITALS: BMI 46.1
[2023-12-14 07:20] VITALS: BP 126/70
[2023-12-14] MEDS: XOPENEX 0.63 MG INHALANT SOLUTION INH (07:48)
[2023-12-14 08:30] VITALS: BMI 45.7
[2023-12-14 08:37] LABS: Glucose - Point of Care 111 mg/dl (70-99)
[2023-12-14] MEDS: NOVOLOG FLEXPEN-MODERATE RESISTANCE SC (08:37)
[2023-12-14] MEDS: COLACE 100 MG PO (08:38)
[2023-12-14] MEDS: GLUCOPHAGE XR EXTENDED RELEASE 500 MG PO (08:38)
[2023-12-14] MEDS: NEURONTIN 300 MG PO (08:38)
[2023-12-14] MEDS: ProAmatine 5 MG PO ×2 (08:38→12:57)
[2023-12-14] MEDS: LOW STRENGTH ASPIRIN 81 MG PO (08:38)
[2023-12-14] MEDS: PROTONIX 40 MG PO (08:38)
[2023-12-14] MEDS: ALDACTONE 25 MG PO (08:39)
[2023-12-14] MEDS: CARDIZEM CD 240 MG PO (08:39)
[2023-12-14] MEDS: VIBRAMYCIN 100 MG PO (08:39)
[2023-12-14] MEDS: SINGULAIR 10 MG PO (08:39)
[2023-12-14] MEDS: TOPROL XL 25 MG PO (08:39)
[2023-12-14] MEDS: SENOKOT 17.2 MG PO (08:39)
[2023-12-14] MEDS: LASIX 80 MG IV ×2 (08:44→15:04)
[2023-12-14] MEDS: NOVOLOG FLEXPEN 6 UNITS SC ×2 (08:45→12:56)
--- NOTE | 2023-12-14 09:18 | CM ---
Addendum entered by Macy Daugherty 12/14/23 11:38:
Patient will be medically cleared for discharge today. Beatriz at [facility] updated and authorization information provided.
Original Note:
Reviewed chart and held rounds with PT, OT and nursing. Met with patient at bedside. Discussed discharge plans. The plan continues to be for patient to go to a SNF for rehab. She selects [facility].
Referral and completed PASRR sent to [facility]. Spoke with Beatriz, admissions liaison who confirms their ability to accept patient today if patient is medically cleared.
Report: [phone]

Spoke with [facility]; patient is approved to go to [facility] 12/12 to 12/14. Update was provided that patient was not discharged on 12/12. Authorization remains good as long as patient is discharged by the end of the day on 12/14.
If patient not discharged by 12/14 then a new auth will need to be initiated.
[2023-12-14 11:10] VITALS: BP 97/58
--- NOTE | 2023-12-14 11:16 | PN.CDI ---
CDI
- -
CDI:
Physician Documentation Request
Admit Date: 12/12/23 07:28
Dear Doctor Franki/DAINA
Please review the following and provide your response in the progress notes.
Clinical Indicators:
Pt admitted with OA left shoulder/ S/P L Revrese TSA 12/12/23
Progress note 12/12, ' hypoxemia-b/l 3+ pitting edema on exam with SOB and diminished breath sounds...Restrictive lung disease....+ nebs and incentive spirometry given hypoxia...'
Vital signs Oxygen as low as 88 %, HR 136, Respirations 24.Has been on 2-4 liters via NC remains on 2 LPM via NC
12/12/23
19:38 12/12/23
20:00 12/12/23
23:14
Nasal Cannula flow liters per minute 4 3 4
12/13/23
03:03 12/13/23
03:54 12/13/23
08:32
Nasal Cannula flow liters per minute 2 3 3
12/13/23
20:00 12/14/23
01:45 12/14/23
07:49
Nasal Cannula flow liters per minute 2 2 3
12/14/23
08:00
Nasal Cannula flow liters per minute 2
Clarify which of the following accurately represents the patient's respiratory status following surgery:
Acute pulmonary insufficiency (following surgery)
Hypoxia- Only
Other (Please specify)
Additional information for Pulmonary Insufficiency:
Consider when patients require moth exterminator oxygen therapy postoperatively
Weaned off oxygen initially then requiring supplemental oxygen
No other definitive diagnosis to support the need for oxygen (COPD exac, CHF etc.)
Unable to wean from vent
When criteria for respiratory failure not present
May extend stay or require additional resources; may need home O2
Use of terms such as suspected, likely, concern for, or probable (associated with a specific diagnosis that is being evaluated, monitored, or treated as if it exists) are acceptable and can be coded in the inpatient setting, when documented at the
time of discharge.
Thank you,
Afia Kidd RN
CDI Specialist
J[facility] Mcbride
Please use your independent medical judgment in providing your response.
[2023-12-14 12:32] LABS: Glucose - Point of Care 188 mg/dl (70-99)
[2023-12-14] MEDS: NOVOLOG FLEXPEN-MODERATE RESISTANCE 1 UNITS SC (12:56)
[2023-12-14] MEDS: LANOXIN 125 MCG PO (12:56)
[2023-12-14] MEDS: LANTUS 0.28 UNITS SC (13:47)
--- NOTE | 2023-12-14 14:10 | W.PN.ORTHO ---
Addendum entered and electronically signed by Alejandra Freed PA-C 12/18/23 14:43:
Acute pulmonary hypoxemia
-chronic hypoxemia at home with exacerbation post-op
Original Note:
Today's Communication / Plan
-
d/c
Assessment
.
Distal Motor Intact: Yes
Dressing:
Clean, dry and intact.
Assessment:
Acute on chronic HFpEF/pulmonary [id number] on echo 06/2022
-hypoxemia-b/l 3+ pitting edema on exam with SOB and diminished breath sounds on POD#1-
-CXR low lung volumes-BNP elevated--resumed Lasix IV 40mg bid which was reduced due to hypotension -Midodrine added to maintain BP to tolerate diuresis
-now tolerating Lasix 80mg IV bid dosing -off O2, weight trending down, no further SOB
-home dose of Lasix at d/c with 3 more days of Midodrine
Persistent Afib-now off oac-asa 81mg-s/p Watchman-EKG and tele stable-uninterrupted Digoxin, Diltiazem and Metoprolol
AD-uuaaeyoj-exfpfr, MR-moderate
Prolonged QT
HTN-hypotensive POD#5-uob-Fticonvoz-improved
HLD-statin
PAD
CAD-GDMT
Restrictive lung disease
Hx tobacco
--+ nebs and incentive spirometry given hypoxia
Seizure disorder
Ambulatory dysfunction/falls-fall precautions
Hx SDH
Meningioma-s/p craniotomy
Morbid obesity-BMI 44.8
Type 2 IDDM-A1C 8.1-currently hyperglycemic-increase Lantus and monitor--abx ppx OP to reduce infection risk
Adrenal tumor-being monitored
Hx Group G strep w/ cellulitis foot wound-Mupirocin, saline bandage
Hx UTI w/ sepsis
Lymphedema-leg elevation, Tubigrips
Anemia-iron deficiency component-hgb stable
Daily ETOH
Insomnia
Plan
.
Surgery / Date: L Reverse DINA Doan 12/12/23
DVT Prophylaxis: Aspirin (81mg bid)
Activity:
Out of bed.
PT/OT
Discharge Plan: SNF
Subjective
.
.:
Patient resting comfortably.
Vital Signs and Labs
.
Vital Signs and Labs:
Lab Results
11/20/23 12:29
12/13/23 11:33
Temp Pulse Resp BP Pulse Ox
97.3 F 87 18 119/71 95
12/14/23 11:10 12/14/23 12:56 12/14/23 11:10 12/14/23 12:57 12/14/23 11:10
Non-invasive Hgb result: 10.8
Physical Exam
-
HEENT: No pallor, cyanosis, or jaundice. Throat clear.
NECK: Supple. No JVD.
RESPIRATORY: Lungs clear to auscultation.
CVS: S1, S2 normal. RRR.� No murmur, rub or gallop.-2+ edema
ABDOMEN: Soft, non-tender. No distension. BS+/normal.
EXTREMITIES: strength equal, no calf pain with palpation
HAND HEEL SEAT FITTER: AOx3. No focal deficits. custom harvester grossly intact
--- NOTE | 2023-12-14 14:42 | W.DS.TRANS ---
DC Summary - Director Of Litigation
-
Discharge Instructions:
Sleep Apnea Risk Intermediate
Discharge Diagnosis/Procedures L Reverse TSA Dr. Doan 12/12/23
Diet Diabetic, Carb Controlled
Activity With assistance,With Walker
Additional Activity hemiwalker with assist-Fall precautions
Driving Restrictions No driving
Bathing Restrictions OK to Shower
Wound Care foot wound-Mupirocin bid-saline wet dressing-
TEDs on for no more than 8 hours/day x 5 days-
then Tubigrips if available-elevated legs at all
times
Instructions:
Stand-Alone Forms: Total Shoulder Replacement D/C
Changes to Home Medications: Yes
Discharge Medications:
DC Medications w/original date entered in [facility]
albuterol sulfate 90 mcg/actuation aerosol inhaler 2 puff inhalation R Q4HPRN PRN sob/wheezing 09/27/19
atorvastatin 40 mg tablet 40 mg PO HS High cholesterol 04/23/21
fenofibrate nanocrystallized 48 mg tablet 48 mg PO HS High cholesterol 07/13/21
montelukast 10 mg tablet 10 mg PO DAILY Allergies 11/30/21
pantoprazole 40 mg tablet,delayed release 40 mg PO DAILY Gastrointestinal issue 11/30/21
sertraline 50 mg tablet 50 mg PO HS Depression 11/30/21
furosemide 80 mg tablet 120 mg PO DAILY FLULID 08/08/23
digoxin 125 mcg (0.125 mg) tablet 125 mcg PO DAILY Heart Disease/Condition 08/22/23
fluticasone 250 mcg-salmeterol 50 mcg/dose blistr powdr for inhalation (Advair Diskus) 1 inh inhalation PRN PRN sob/wheezing 08/22/23
furosemide 80 mg tablet 80 mg PO DAILY@1400 Fluid Retention/Swelling 08/22/23
levothyroxine 125 mcg tablet (Synthroid) 125 mcg PO DAILY Thyroid 08/22/23
metformin 500 mg tablet,extended release 24 hr 500 mg PO BID Diabetes 08/22/23
potassium chloride 20 mEq tablet,extended release(part/cryst) 20 meq PO BID Electrolyte Repletion 08/22/23
spironolactone 25 mg tablet 25 mg PO DAILY Heart Failure 08/22/23
verapamil 240 mg 24 hr capsule,extended release 240 mg PO DAILY Blood Pressure 11/04/23
zolpidem 12.5 mg tablet,extended release,multiphase 12.5 mg PO HS Sleep 11/04/23
metoprolol succinate 25 mg tablet,extended release 24 hr 25 mg PO DAILY #30 tabs 11/06/23
Saccharomyces boulardii 250 mg capsule (Florastor) 250 mg PO BID #1 cap 12/14/23
acetaminophen 325 mg capsule (Tylenol) 650 mg (2 x 325 mg) PO QID #2 caps 12/14/23
aspirin 81 mg tablet,delayed release 81 mg PO BID #0 tabs 12/14/23
docusate sodium 100 mg capsule (Colace) 100 mg PO BID stool softner #1 cap 12/14/23
doxycycline hyclate 100 mg capsule 100 mg PO BID infection prevention #10 caps 12/14/23
gabapentin 300 mg capsule 300 mg PO BID sleep/pain #10 caps 12/14/23
insulin glargine 100 unit/mL subcutaneous solution (Lantus U-100 Insulin) 28 unit (0.28 mL) SC QPM DM #1 mL 12/14/23
magnesium hydroxide 400 mg/5 mL oral suspension (Milk of Magnesia) 30 ml PO HS PRN Constipation #1 mL 12/14/23
midodrine 5 mg tablet 5 mg PO BID MAINTAIN BP #6 tabs 12/14/23
oxycodone 5 mg tablet 5 mg PO Q6H PRN 1 tab moderate pain, 2 tabs severe pain #30 tabs 12/14/23
sennosides 8.6 mg tablet (Senokot) 17.2 mg (2 x 8.6 mg) PO BID laxative #2 tabs 12/14/23
Home Medication Changes
doxycycline hyclate 100 mg capsule 100 mg PO BID infection prevention #10 caps 12/14/23�
gabapentin 300 mg capsule 300 mg PO BID sleep/pain #10 caps 12/14/23�
insulin glargine 100 unit/mL subcutaneous solution (Lantus U-100 Insulin) 28 unit (0.28 mL) SC QPM DM #1 mL 12/14/23�
midodrine 5 mg tablet 5 mg PO BID MAINTAIN BP #6 tabs 12/14/23�
oxycodone 5 mg tablet 5 mg PO Q6H PRN 1 tab moderate pain, 2 tabs severe pain #30 tabs 12/14/23�
aspirin 81 mg tablet,delayed release 81 mg PO BID #0 tabs 12/14/23�
Pending Results: No
[2023-12-14 15:09] VITALS: BP 116/78
== END 2023-12-14 15:21 | DRG 483 ==
LOC: 2 SOUTH 07:28
PROVIDERS: Internal Medicine Cardiovascular Disease; Physician Assistant Medical; ADMITTING PHYSICIAN Orthopaedic Surgery Hand Surgery; FAMILY PHYSICIAN Internal Medicine
PROC: 0RRK00Z Replacement of Left Shoulder Joint with Reverse Ball and Socket Synthetic Substitute, Open Approach (ICD-10-PCS; 2023-12-12)
DX: M19.012 Primary osteoarthritis, left shoulder (principal); I50.33 Acute on chronic diastolic (congestive) heart failure; I48.19 Other persistent atrial fibrillation; Z68.41 Body mass index [BMI] 40.0-44.9, adult; M75.102 Unspecified rotator cuff tear or rupture of left shoulder, not specified as traumatic; I11.0 Hypertensive heart disease with heart failure; I27.20 Pulmonary hypertension, unspecified; I25.10 Atherosclerotic heart disease of native coronary artery without angina pectoris; I48.0 Paroxysmal atrial fibrillation; E11.51 Type 2 diabetes mellitus with diabetic peripheral angiopathy without gangrene; D50.9 Iron deficiency anemia, unspecified; I89.0 Lymphedema, not elsewhere classified; G47.00 Insomnia, unspecified; F10.90 Alcohol use, unspecified, uncomplicated; E11.65 Type 2 diabetes mellitus with hyperglycemia; E66.01 Morbid (severe) obesity due to excess calories; G40.909 Epilepsy, unspecified, not intractable, without status epilepticus; R09.02 Hypoxemia; Z79.84 Long term (current) use of oral hypoglycemic drugs; I25.2 Old myocardial infarction; Z95.5 Presence of coronary angioplasty implant and graft; Z79.01 Long term (current) use of anticoagulants; Z87.442 Personal history of urinary calculi; Z87.891 Personal history of nicotine dependence
CPT/HCPCS: 36415; 71046; 73020; 80048; 80053; 82947; 82962; 83036; 83880; 85027; 86850; 86900; 86901; 87070; 93005; 94640; 97162; 97166; 97530; 97535

== ENCOUNTER 2024-01-25 20:01 | Inpatient (IN) | payer MEDICARE, OTHER, SELFPAY ==
[2024-01-25] VITALS (13 sets, daily range): BP systolic 89–135; BP diastolic 47–99; PULSE 2–123; BMI 44.2
[2024-01-25 15:24] LABS: % Basophils 0.9 % (0-2); % Eosinophils 1.8 % (0-6); % Immature Granulocytes 1.9 % (0-0.5); % Lymphocytes 7.5 % (20.5-51.1); % Monocytes 6.1 % (1.7-9.3); % Neutrophils 81.8 % (42.2-75.2); Absolute Basophils 0.1 10^3/uL (0-0.2); Absolute Eosinophils 0.2 10^3/uL (0-0.7); Absolute Immature Granulocytes 0.2 10^3/uL (0-0.05); Absolute Lymphocytes 0.7 10^3/uL (1.2-3.4); Absolute Monocytes 0.6 10^3/uL (0.1-0.6); Absolute Neutrophils 7.8 10^3/uL (1.4-6.5); Hematocrit 33.9 % (37.0-47.0); Hemoglobin 10.8 g/dL (12.0-16.0); Mean Corp Hgb Conc. 31.9 g/dL (33.0-37.0); Mean Corpuscular Hgb 26.7 pg (27.0-31.0); Mean Corpuscular Volume 83.7 fL (81.0-99.0); Mean Platelet Volume 9.6 fL (7.4-10.4); Nucleated Red Blood Cells % 0 %; Platelet Count 323 10^3/uL (130-400); Red Blood Cell Count 4.05 10^6/uL (4.20-5.40); Red Cell Dist. Width 15.6 % (11.5-14.5); White Blood Cell Count 9.5 10^3/uL (4.8-10.8)
[2024-01-25 15:51] LABS: ALT (SGPT) 10 U/L (0-35); AST (SGOT) 18 U/L (14-36); Albumin 3.5 g/dl (3.5-5.0); Alkaline Phosphatase 105 U/L (38-126); Blood Urea Nitrogen 31 mg/dl (7-17); Calcium 9.1 mg/dl (8.4-10.2); Carbon Dioxide 32 mmol/L (22-30); Chloride 99 mmol/L (98-107); Glucose 159 mg/dl (70-99); Potassium 3.8 mmol/L (3.5-5.1); Sodium 140 mmol/L (135-145); Total Bilirubin 0.6 mg/dl (0.2-1.3); Total Protein 6.3 g/dl (6.3-8.2); eGFR 58.75
--- NOTE | 2024-01-25 17:09 | ED.GENMED ---
History of Present Illness
<Duncan Marie PA-C - Last Filed: 01/25/24 20:00>
General
Chief Complaint: Skin Problem
Source: patient
Exam Limitations: none
Time Seen by Provider: 01/25/24 16:41
History of Present Illness
History of Present Illness:
73-year-old female insulin-dependent diabetic presents from home via EMS after signing herself out of the [facility] facility yesterday with worsening wound to left heel. She now notes it has a bad odor. She notes increased pain to the heel.
She denies fever sweats or chills. She states she is currently on an antibiotic for urinary tract but does not recall the name. She has had diabetic foot ulcer in the past. She has had cellulitis of his left leg in the past. She is not
currently on an anticoagulant. No other complaints at this time
Past History
<Duncan Marie PA-C - Last Filed: 01/25/24 20:00>
Past History
ED Past Medical History: Arrthythmia (Atrial fibrillation), Asthma, CAD, CHF, HTN, Hypercholesterolemia, IDDM, ME, Hypothyroidism and Other (PNA, Cellulitis, Chronic Lymph edema,)
ED Past Surgical History: Cardiac (cardioversion, Stents X 2), Cholecystectomy and Other
Social History
Tobacco: Former smoker
Alcohol: Daily (Vodka 1 large glass)
Drug: None
Personal:
Living: alone
Employment: Retired
Family History
Family History: Hypertension
Phy Exam
<Duncan Marie PA-C - Last Filed: 01/25/24 20:00>
Physical Exam
Physical Exam:
General: Well-appearing female no acute respiratory distress
HEENT normocephalic atraumatic
Heart: Regular rate and rhythm
Lungs: Clear no wheeze
Skin: 5 cm diameter deep ulcer with necrotic edges to the left heel. This is malodorous. This is mostly dry. There is mild surrounding erythema.
Extremities: Lymphedema bilateral lower extremities
Vascular: Left foot is warm to the touch
Course
<Duncan Marie PA-C - Last Filed: 01/25/24 20:00>
Orders/Labs/Results
Orders:
Orders
01/25/24 15:13
CBC/With Diff [Complete Blood Count/With Diff] Urgent
CMP [Comprehensive Metabolic Panel] Urgent
01/25/24 16:58
CR Foot - Left Min 3 Views Urgent
Comment:
Reason For Exam: pain, ulcer
01/25/24 17:03
Acetaminophen [Tylenol] 650 mg PO NOW STA
01/25/24 18:46
Piperacillin/Tazo 3.375 Gram [Zosyn] 3.375 gram in 50 ml IV NOW
01/25/24 19:10
Diphenhydramine [Benadryl] 50 mg .ROUTE .STK-MED ONE
01/25/24 19:11
CR Chest Portable - 1 View Urgent
Comment:
Reason For Exam: sob
Reason Study Needs to be Portable: Unable to Transport
01/25/24 19:13
EPINEPHrine PF [Adrenalin] 1 mg .ROUTE .STK-MED ONE
01/25/24 19:14
Diphenhydramine [Benadryl] 50 mg IV NOW STA
01/25/24 19:16
Furosemide [Lasix] 100 mg .ROUTE .STK-MED ONE
Ipratropium/Albuterol Sulfate [Duoneb] 3 ml .ROUTE .STK-MED ONE
01/25/24 19:17
EPINEPHrine PF [Adrenalin] 1 mg IM NOW STA
01/25/24 19:18
Ipratropium/Albuterol Sulfate [Duoneb] 3 ml INH R NOW ONE
01/25/24 19:19
Furosemide [Lasix] 100 mg IV NOW STA
01/25/24 19:24
EKG [Electrocardiogram (*1)] Urgent
Reason for Study: Tachycardia
01/25/24 19:47
Admit/Transfer Patient As Directed
Co-Sign Provider:
Level of Care: Inpatient admission
Assign to:: IMU- Intermediate Care
Physician / Group: Ilan
Diagnosis: Allergic Reaction, L DM Foot Wound
Reason for Hospitalization: Allergic Reaction, L DM Foot Wound
Expected length of stay greater than two midnights?: Yes
ELOS- Estimated Length of Stay in days: 4
I certify the patient meets the requirements for IP care: Yes
Famotidine [Pepcid] 20 mg IV NOW STA
PRN Pain Medication Management As Directed
May give lesser potent ordered pain med per pt: Yes
preference::
Protocol:: Medication orders for pain may be administered in a
manner that supports deferring to patient preference
when the pt is:
- Requesting an ordered lesser potent pain medication.
Least to most potent pain medications are defined
as: acetaminophen < NSAID < tramadol < opioids
(morphine, oxycodone, hydromorphone).
- Requesting a lesser dose of the same medication IF
ORDERED.
- Requesting a less intrusive route of administration
if both routes are prescribed by the provider (PO <
IV).
01/25/24 19:51
Code Status As Directed
Resuscitation Status: Full Code
Abnormal Lab Results
01/25/24
15:13
RBC 4.05 L 10^6/uL
(4.20-5.40)
Hgb 10.8 L g/dL
(12.0-16.0)
Hct 33.9 L %
(37.0-47.0)
MCH 26.7 L pg
(27.0-31.0)
MCHC 31.9 L g/dL
(33.0-37.0)
RDW 15.6 H %
(11.5-14.5)
Abs Immat Gran (auto) 0.2 H 10^3/uL
(0-0.05)
Absolute Neuts (auto) 7.8 H 10^3/uL
(1.4-6.5)
Absolute Lymphs (auto) 0.7 L 10^3/uL
(1.2-3.4)
Immature Gran % 1.9 H %
(0-0.5)
Neutrophils % 81.8 H %
(42.2-75.2)
Lymphocytes % 7.5 L %
(20.5-51.1)
Carbon Dioxide 32 H mmol/L
(22-30)
BUN 31 H mg/dl
(7-17)
Glucose 159 H mg/dl
(70-99)
01/25/24 15:13
01/25/24 15:13
Vital Signs
Initial and Last Documented VS:
Initial Vital Signs
Temp Pulse Resp BP Pulse Ox
98.0 F 110 19 102/70 97
01/25/24 15:03 01/25/24 15:03 01/25/24 15:03 01/25/24 15:03 01/25/24 15:03
Last Documented Vital Signs
Temp Pulse Resp BP Pulse Ox
98.0 F 125 14 89/55 100
01/25/24 15:03 01/25/24 20:00 01/25/24 20:00 01/25/24 20:00 01/25/24 20:00
Yarelilt;Venkat Saleem DO - Last Filed: 01/25/24 20:39>
Orders/Labs/Results
Orders:
Orders
01/25/24 15:13
CBC/With Diff [Complete Blood Count/With Diff] Urgent
CMP [Comprehensive Metabolic Panel] Urgent
01/25/24 16:58
CR Foot - Left Min 3 Views Urgent
Comment:
Reason For Exam: pain, ulcer
01/25/24 17:03
Acetaminophen [Tylenol] 650 mg PO NOW STA
01/25/24 18:46
Piperacillin/Tazo 3.375 Gram [Zosyn] 3.375 gram in 50 ml IV NOW
01/25/24 19:10
Diphenhydramine [Benadryl] 50 mg .ROUTE .STK-MED ONE
01/25/24 19:11
CR Chest Portable - 1 View Urgent
Comment:
Reason For Exam: sob
Reason Study Needs to be Portable: Unable to Transport
01/25/24 19:13
EPINEPHrine PF [Adrenalin] 1 mg .ROUTE .STK-MED ONE
01/25/24 19:14
Diphenhydramine [Benadryl] 50 mg IV NOW STA
01/25/24 19:16
Furosemide [Lasix] 100 mg .ROUTE .STK-MED ONE
Ipratropium/Albuterol Sulfate [Duoneb] 3 ml .ROUTE .STK-MED ONE
01/25/24 19:17
EPINEPHrine PF [Adrenalin] 1 mg IM NOW STA
01/25/24 19:18
Ipratropium/Albuterol Sulfate [Duoneb] 3 ml INH R NOW ONE
01/25/24 19:19
Furosemide [Lasix] 100 mg IV NOW STA
01/25/24 19:24
EKG [Electrocardiogram (*1)] Urgent
Reason for Study: Tachycardia
01/25/24 19:47
Admit/Transfer Patient As Directed
Co-Sign Provider:
Level of Care: Inpatient admission
Assign to:: IMU- Intermediate Care
Physician / Group: Ilan
Diagnosis: Allergic Reaction, L DM Foot Wound
Reason for Hospitalization: Allergic Reaction, L DM Foot Wound
Expected length of stay greater than two midnights?: Yes
ELOS- Estimated Length of Stay in days: 4
I certify the patient meets the requirements for IP care: Yes
Famotidine [Pepcid] 20 mg IV NOW STA
PRN Pain Medication Management As Directed
May give lesser potent ordered pain med per pt: Yes
preference::
Protocol:: Medication orders for pain may be administered in a
manner that supports deferring to patient preference
when the pt is:
- Requesting an ordered lesser potent pain medication.
Least to most potent pain medications are defined
as: acetaminophen < NSAID < tramadol < opioids
(morphine, oxycodone, hydromorphone).
- Requesting a lesser dose of the same medication IF
ORDERED.
- Requesting a less intrusive route of administration
if both routes are prescribed by the provider (PO <
IV).
01/25/24 19:51
Code Status As Directed
Resuscitation Status: Full Code
Abnormal Lab Results
01/25/24
15:13
RBC 4.05 L 10^6/uL
(4.20-5.40)
Hgb 10.8 L g/dL
(12.0-16.0)
Hct 33.9 L %
(37.0-47.0)
MCH 26.7 L pg
(27.0-31.0)
MCHC 31.9 L g/dL
(33.0-37.0)
RDW 15.6 H %
(11.5-14.5)
Abs Immat Gran (auto) 0.2 H 10^3/uL
(0-0.05)
Absolute Neuts (auto) 7.8 H 10^3/uL
(1.4-6.5)
Absolute Lymphs (auto) 0.7 L 10^3/uL
(1.2-3.4)
Immature Gran % 1.9 H %
(0-0.5)
Neutrophils % 81.8 H %
(42.2-75.2)
Lymphocytes % 7.5 L %
(20.5-51.1)
Carbon Dioxide 32 H mmol/L
(22-30)
BUN 31 H mg/dl
(7-17)
Glucose 159 H mg/dl
(70-99)
01/25/24 15:13
01/25/24 15:13
Vital Signs
Initial and Last Documented VS:
Initial Vital Signs
Temp Pulse Resp BP Pulse Ox
98.0 F 110 19 102/70 97
01/25/24 15:03 01/25/24 15:03 01/25/24 15:03 01/25/24 15:03 01/25/24 15:03
Last Documented Vital Signs
Temp Pulse Resp BP Pulse Ox
98.0 F 125 14 89/55 100
01/25/24 15:03 01/25/24 20:00 01/25/24 20:00 01/25/24 20:00 01/25/24 20:00
<Duncan Marie PA-C - Last Filed: 01/25/24 20:00>
MDM/Problems Addressed
Differential Diagnosis Includes:
Left heel pain with foot ulcer. Question cellulitis versus underlying osteomyelitis
Check labs. X-ray left foot pending.
<Duncan Marie PA-C - Last Filed: 01/25/24 20:00>
*Critical Care Note
Total Time (30-74mins, 75-104mins- exclusive of procedures): Not Applicable
<Duncan Marie PA-C - Last Filed: 01/25/24 20:00>
Update Note
Update Note:
Patient did receive Zosyn here. Approximately 20 minutes after receiving Zosyn she developed respiratory distress. She was hypoxic. She was itchy as well. Question possible allergic reaction to Zosyn versus flash pulmonary edema. Stat portable
chest x-ray was ordered which shows mild edema. She was given a combination of Lasix, epinephrine and was started on BiPAP and improved soon thereafter. Patient will be admitted to hospital for diabetic foot ulcer.
ED Attending Note
<Duncan Marie PA-C - Last Filed: 01/25/24 20:00>
-
Portions of this chart may have been created with voice recognition software.� Occasional wrong word or��sound alike� substitutions may have occurred due to the inherent limitations of voice recognition software.
<Venkat Saleem DO - Last Filed: 01/25/24 20:39>
ED Attending Note
Patient seen and examined by attending physician: Yes
I performed the substantive portion of visit, reviewed & personally made and approve the management plan that is documented in note by myself or MAGDALENA.: Yes
ED Attending Note:
Patient is a 73-year-old diabetic who came in because of diabetic foot ulcer. While in the ER patient was given Zosyn and then developed acute shortness of breath. Chest x-ray did show increased congestion and fluid on the lungs. Patient was not
moving much in the way of air. Patient's heart rate was elevated and blood pressure came down. Patient was treated for CHF which she has a history of even though her EF is 55% as well as an allergic reaction. Patient had not said she was allergic
to penicillins when we first saw her. However it does appear that she is. Patient was an extremis but is now doing much better. Patient will be admitted for.
Discharge Plan
Departure
Patient Disposition: Admit
Date of Disposition: 01/25/24
Time of Disposition: 19:59
Presentation/result/management discussed w/ accepting MD/DO: Hospitalist
Discharge Problem:
Diabetic foot ulcer
Interventions
Interventions:
*Risk Screen - Suicide Last Done: 01/25/24 18:44
*General Assessment Last Done: 01/25/24 18:44
*Neglect/Abuse Screening Last Done: 01/25/24 18:44
ED- Fall Risk Assessment Last Done: 01/25/24 18:44
ED-Skin Assessment Last Done: 01/25/24 17:50
[2024-01-25] MEDS: TYLENOL 650 MG PO (17:20)
[2024-01-25] MEDS: ZOSYN 50 IV (18:57)
[2024-01-25] MEDS: BENADRYL 50 MG IV (19:15)
[2024-01-25] MEDS: ADRENALIN 1 MG IM (19:18)
[2024-01-25] MEDS: DUONEB 3 ML INH (19:18)
[2024-01-25] MEDS: LASIX 100 MG IV (19:20)
[2024-01-25] MEDS: PEPCID 20 MG IV (19:50)
--- NOTE | 2024-01-25 19:56 | HPS.HSE ---
Family Physician
-
Family Physician: Betsy Heard
Chief Complaint
-
L Heel Wound
History of Present Illness
Patient is a 73y F with PMH significant for HTN, DM-II, morbid obesity and recent L TSA who presents to ED complaining of left heel wound. Patient reports chronic L heel wound that has been followed in the past by Drs. Joy and Geovanni. She
recently underwent L reverse shoulder arthroplasty and had been in rehab facility post-procedure. She notes that the heel wound worsened during her time there with increased drainage, malodor and increased pain. She signed herself out of the rehab
facility yesterday and returned home. She presented to the ED today for evaluation given the increased pain and drainage from her L heel.
Patient denies any systemic symptoms such as fevers, chills, N/V/D, etc.
She denies any other current complaints.
During her time in the ED, patient developed abrupt onset of respiratory distress. She was flushed appearing, tachycardic and tachypneic.
Symptoms occurred about 20 minutes after receiving IV Zosyn.
She was treated with epinephrine and Benadryl. She was placed on BiPAP.
Patient also received 120mg of IV Lasix.
At the time of my examination she states that she feels much improved from prior - though she continues to experience some dyspnea and has a flushed appearance.
Patient states that she has had similar symptoms in the past after receiving vancomycin.
She also reports to me allergies to penicillins and sulfa abx - and states that she has had hives in the past with each of these.
Medical History
Past Medical History
Past Medical History: Reports Other
Additional Past Medical History:
Hypertension
DM-II
Morbid Obesity
Chronic HFpEF
Moderate - Severe MR
Moderate - Severe TR / Pulmonary Hypertension
ASCVD
Paroxysmal Atrial Fibrillation
Asthma / COPD
Hypothyroidism
Past Surgical History: Reports Other
Additional Past Surgical History:
PVI Ablation
Watchman Device
PTCA with Stent (x 2)
Cholecystectomy
T&A
Bladder Repair
Craniotomy / Meningioma Resection
Left Reverse Total Shoulder Arthroplasty
Social History
Tobacco: Former Smoker (Quit smoking in 1996.)
Alcohol: Former (History of alcohol use disorder. Now sober.)
Family History
Family History: Not pertinent
Allergies / Home Medications
Allergies reflects when Allergies were last updated in [facility].
Home Medications with original date entered in [facility]
Allergy/Medication List:
Allergies
Allergy/AdvReac Type Severity Reaction Status Date / Time
Penicillins Allergy Severe Shortness Verified 01/25/24 20:03
of Breath
cat dander Allergy ASTHMA/SOB Verified 01/25/24 15:07
levofloxacin Allergy Hives Verified 01/25/24 15:07
[From Levaquin Leva-Carlos]
Sulfa (Sulfonamide Allergy Hives Verified 01/25/24 15:07
Antibiotics)
vancomycin [Vancomycin] Allergy Rash/red Verified 01/25/24 15:07
tino
syndrome
Home Medications
albuterol sulfate 90 mcg/actuation aerosol inhaler 2 puff inhalation R Q4HPRN PRN sob/wheezing 09/27/19
atorvastatin 40 mg tablet 40 mg PO HS High cholesterol 04/23/21
fenofibrate nanocrystallized 48 mg tablet 48 mg PO HS High cholesterol 07/13/21
montelukast 10 mg tablet 10 mg PO DAILY Allergies 11/30/21
pantoprazole 40 mg tablet,delayed release 40 mg PO DAILY Gastrointestinal issue 11/30/21
sertraline 50 mg tablet 50 mg PO HS Depression 11/30/21
furosemide 80 mg tablet 120 mg PO DAILY FLULID 08/08/23
digoxin 125 mcg (0.125 mg) tablet 125 mcg PO DAILY Heart Disease/Condition 08/22/23
fluticasone 250 mcg-salmeterol 50 mcg/dose blistr powdr for inhalation (Advair Diskus) 1 inh inhalation R DAILYPRN PRN sob/wheezing 08/22/23
furosemide 80 mg tablet 80 mg PO DAILY@1400 Fluid Retention/Swelling 08/22/23
levothyroxine 125 mcg tablet (Synthroid) 125 mcg PO DAILY Thyroid 08/22/23
metformin 500 mg tablet,extended release 24 hr 500 mg PO BID Diabetes 08/22/23
potassium chloride 20 mEq tablet,extended release(part/cryst) 20 meq PO BID Electrolyte Repletion 08/22/23
spironolactone 25 mg tablet 25 mg PO DAILY Heart Failure 08/22/23
verapamil 240 mg 24 hr capsule,extended release 240 mg PO DAILY Blood Pressure 11/04/23
zolpidem 12.5 mg tablet,extended release,multiphase 12.5 mg PO HS Sleep 11/04/23
metoprolol succinate 25 mg tablet,extended release 24 hr 25 mg PO DAILY #30 tabs 11/06/23
aspirin 81 mg tablet,delayed release 81 mg PO BID #0 tabs 12/14/23
docusate sodium 100 mg capsule (Colace) 100 mg PO BID stool softner #1 cap 12/14/23
gabapentin 300 mg capsule 300 mg PO BID sleep/pain #10 caps 12/14/23
insulin glargine 100 unit/mL subcutaneous solution (Lantus U-100 Insulin) 28 unit (0.28 mL) SC QPM DM #1 mL 12/14/23
sennosides 8.6 mg tablet (Senokot) 17.2 mg (2 x 8.6 mg) PO BID laxative #2 tabs 12/14/23
acetaminophen 325 mg capsule (Tylenol) 650 mg PO Q6HPRN PRN mild pain/fever>100 01/25/24
bisacodyl 10 mg rectal suppository (Dulcolax (bisacodyl)) 10 mg KS DAILYPRN PRN if mom ineffective 01/25/24
collagenase clostridium histo. 250 unit/gram topical ointment (Santyl) 1 applic topical DAILY 01/25/24
magnesium hydroxide 400 mg/5 mL oral suspension (Milk of Magnesia) 30 ml PO DAILYPRN PRN if no bm x 3 days 01/25/24
multivitamin (Daily-Marcia tablet) 1 tab PO DAILY 01/25/24
oxycodone 10 mg tablet 10 mg PO BID 01/25/24
sodium phosphates 19 gram-7 gram/118 mL enema (Fleet Enema) 118 ml KS DAILYPRN PRN if dulcolax is ineffective 01/25/24
Review of Systems
-
History Source: Patient
A 12 point ROS was completed and negative except as noted: Yes
Constitutional: Denies Fever, Fatigue or Chills
EENT: Denies Sore Throat
Respiratory: Reports Trouble Breathing; Denies Cough
Cardiac: Denies Chest Pain or Palpitations
Abdomen/GI: Denies Abdominal Pain, Nausea, Vomiting or Diarrhea
: Denies Dysuria, Frequency or Flank Pain
Musculoskeletal: Reports Edema; Denies Joint Pain
Skin: Reports Other (L Heel Wound)
Neurological: Denies Dizzy or Headache
Psych: Denies Depression or Anxiety
Physical Exam
Vital Signs
Vital Signs
Temp Pulse Resp BP Pulse Ox
98.0 F 121 21 135/99 94
01/25/24 15:03 01/25/24 19:30 01/25/24 19:30 01/25/24 19:20 01/25/24 19:30
Physical Exam
General: Other (73y F flushed appearing and with BiPAP in place. Mild conversational dyspnea.)
HEENT: Moist mucous membranes and Other (Thick neck.)
Respiratory: Other (Bibasilar rales about 1/3 up. No wheezes.)
Cardiac: S1/S2, Irregular Rhythm and Tachycardia
GI: Soft, Non Tender, Non Distended and Normal Bowel Sounds
Musculoskeletal: Other (3-4+ brawny edema b/l LEs. Mild R heel pressure / erythema. L heel with large ulceration with malodor. No bleeding / drainage at present. Necrotic edges.)
Neuro: AO x 3
Laboratory Results
-
01/25/24 15:13
01/25/24 15:13
Laboratory Results
Total Bilirubin 0.6 mg/dl (0.2-1.3) 01/25/24 15:13
AST 18 U/L (14-36) 01/25/24 15:13
ALT 10 U/L (0-35) 01/25/24 15:13
Alkaline Phosphatase 105 U/L (38-126) 01/25/24 15:13
Impression/Plan
-
A/P: Patient is a 73y F with PMH significant for ASCVD, HTN and DM-II who presents to ED for evaluation of L heel wound.
Acute Respiratory Distress / Anaphylaxis
- Admit to IMU on BiPAP.
- Continue to monitor closely overnight and repeat Epi dosing if needed.
- IV Benadryl / supportive care.
- Patient reports PCN allergy to me - but this was not listed in her record prior. Allergy added.
Left Heel DM Wound
- Chronic L heel wound that is recently worse per patient.
- Will hold on any further abx for now - got initial Zosyn dose here in the ED.
- Podiatry evaluation for local care / I&D / etc.
- X-ray done in the ED today with no evidence of osteo - ? MRI.
- ID eval for any abx recommendations.
ASCVD
- Prior eval for PAD resulted in [facility] showing only small vessel disease - no intervenable lesions.
- Continue current med regimen including BID ASA, statin, etc.
Acute on Chronic HFpEF
Pulmonary Hypertension
Valvular Heart Disease
- CXR and exam c/w some degree of volume overload.
- Patient on very high dose Lasix regimen at home.
- Continue IV Lasix for now with 80mg BID dosing.
- Follow I/Os, daily weights, etc.
- Echo done last in November with normal LVEF, mitral / tricuspid regurg.
Paroxysmal Atrial Fibrillation
- Tachycardic in the ED s/p respiratory distress and then administration of epinephrine.
- Monitor on telemetry.
- Continue OP regimen of Dig, verapamil and metoprolol.
- Consider diltiazem gtt if rates do not improve with time after epi dosing / resp distress / etc.
Asthma / COPD
- No evidence of wheezing on exam.
- BiPAP overnight as noted above.
- Patient on no maintenance medications.
- Albuterol PRN.
DM-II
- Stable. Continue basal : bolus insulin regimen.
- Hold PO metformin acutely.
- Follow glucose and cover with SSI as needed.
- Update A1C.
Hypothyroidism
- Stable. Continue current T4 supplementation.
s/p L Reverse Shoulder Arthroplasty
- Had surgery on 12/12/23.
- Steri strips still in place.
- PT / OT evaluations.
Morbid Obesity due to excess calories
- Affects all aspects of care.
- Encourage healthy diet and increased activity as able with goal of weight loss.
DVT Prophylaxis: Lovenox
Code Status: Full
--- NOTE | 2024-01-25 20:30 | PTCARENOTE ---
Patient received from ED, AAOX3, Afib on monitor, +3 edema to bilateral lower extremities, weak pedal pulses. Lungs clear, pulse ox 92-94% on room air. denies SOB. Abdomen obese with positive bowel sounds. Pure wick maintained. CHG bath given.
Sacral foam applied. Bilateral unstageable heel wounds, both with drainage, left heel with foul smelling odor. Wet to dry dressings applied to both, air heel boots placed on patient. #20 g in right forearm flushed and patent. Plan of care
discussed, marlys dunia within reach
[2024-01-25] MEDS: NEURONTIN 300 MG PO (21:57)
[2024-01-25] MEDS: KCL 20 MEQ PO (21:57)
[2024-01-25] MEDS: ZOLOFT 50 MG PO (21:57)
[2024-01-25] MEDS: SENOKOT 17.2 MG PO (21:57)
[2024-01-25] MEDS: COLACE 100 MG PO (21:58)
[2024-01-25] MEDS: ASPIR LOW (ENTERIC COATED) 81 MG PO (21:58)
[2024-01-25] MEDS: LIPITOR 40 MG PO (21:58)
[2024-01-25] MEDS: ROXICODONE 10 MG PO (22:46)
[2024-01-25] MEDS: BENADRYL 25 MG IV (22:46)
[2024-01-25] MEDS: DESENEX/MITRAZOL/ZEASORB 1 APPLIC TOPICAL (23:36)
[2024-01-26] VITALS (16 sets, daily range): BP systolic 91–114; BP diastolic 38–79; PULSE 114; O2SAT 92; BMI 44.1
[2024-01-26 00:02] LABS: TSH Reflex To Free T4 2.78 uIU/ml (0.47-4.68)
[2024-01-26 04:05] LABS: Hematocrit 31.9 % (37.0-47.0); Hemoglobin 10.1 g/dL (12.0-16.0); Mean Corp Hgb Conc. 31.7 g/dL (33.0-37.0); Mean Corpuscular Hgb 26.4 pg (27.0-31.0); Mean Corpuscular Volume 83.3 fL (81.0-99.0); Mean Platelet Volume 9.7 fL (7.4-10.4); Platelet Count 289 10^3/uL (130-400); Red Blood Cell Count 3.83 10^6/uL (4.20-5.40); Red Cell Dist. Width 15.6 % (11.5-14.5); White Blood Cell Count 10.1 10^3/uL (4.8-10.8)
[2024-01-26 04:22] LABS: Blood Urea Nitrogen 30 mg/dl (7-17); Calcium 8.6 mg/dl (8.4-10.2); Carbon Dioxide 28 mmol/L (22-30); Chloride 103 mmol/L (98-107); Estimated Creatinine Clearance 65 ml/min; Glucose 215 mg/dl (70-99); Potassium 3.7 mmol/L (3.5-5.1); Sodium 140 mmol/L (135-145); eGFR > 60.00
[2024-01-26] MEDS: SYNTHROID 125 MCG PO (05:37)
[2024-01-26] MEDS: NOVOLOG FLEXPEN-MODERATE RESISTANCE 1 UNITS SC (08:29)
[2024-01-26] MEDS: CALAN EXTENDED RELEASE 240 MG PO (08:29)
[2024-01-26 08:36] LABS: Glucose - Point of Care 189 mg/dl (70-99)
[2024-01-26] MEDS: TOPROL XL 25 MG PO (08:47)
[2024-01-26] MEDS: DESENEX/MITRAZOL/ZEASORB 1 APPLIC TOPICAL ×2 (08:47→21:18)
[2024-01-26] MEDS: ROXICODONE 10 MG PO (08:48)
[2024-01-26] MEDS: SINGULAIR 10 MG PO (08:48)
[2024-01-26] MEDS: PROTONIX 40 MG PO (08:48)
[2024-01-26] MEDS: NEURONTIN 300 MG PO ×2 (08:48→21:18)
[2024-01-26] MEDS: KCL 20 MEQ PO ×2 (08:48→21:18)
[2024-01-26] MEDS: ASPIR LOW (ENTERIC COATED) 81 MG PO ×2 (08:48→21:17)
[2024-01-26] MEDS: LASIX 80 MG IV ×2 (08:48→16:52)
[2024-01-26] MEDS: COLACE PO (09:04)
[2024-01-26] MEDS: SENOKOT PO (09:04)
--- NOTE | 2024-01-26 09:15 | CON.ID ---
Consultation
-
Date/Time Consultation Requested: 01/26/24 6:16
Date/Time Consultation Performed: 01/26/24 9:16
Requesting Provider: Dr Talavera
Performing Provider: Dr Kearns
Reason for Consultation: L Heel DM wound
Chief Complaint / Past History
Chief Complaint
L Heel Wound
History of Present Illness
Ms Clark is a 73 year old female with Dm2, class III obesity recent L shoulder arthroplasty who presented here for progression of a chronic left heel wound with increased drainage, odor and pain. No fevers, chills, nausea or vomiting. She was in
a rehab facility after her shoulder surgery but the wound worsened; she signed out of the rehab and presented here. Of note recently treated with antibiotic for UTI but unknown name.
Since arrival here she has been afebrile, bp intermittently mildly hypotensive currently normotensive, HR 110s, wbc 9.5 on arrival now 10.1, hgb 10.1, plt 289, L shift was present on arrival, na 140, k 3.7, cr 0.9, a1c 2 months ago 8.1 updated a1c
pending, t bili 0.6, ast 18, alt 10, alk phos 105, note 2010 and 2014 IgE levels were very high
About 20 min after the infusion of zosyn she had abrupt onset of respiratory distress, flushing, tachycardic, tachypneic, hypotensive, itchy, hypoxic. ER attending Dr Saleem documented she was in extremis. She was treated with epinephrine,
benadryl, bipap and 120 mg of lasix with resolution of shortness of breath. Of note she reports a history of shortness of breath with penicillins in the past. CXR with mild edema. Currently not on antibiotics. A MRSA screen is pending and a
second mrsa screen was negative two months ago
ID is consulted for assistance with management
Past History
Additional Past Medical History:
Arrthythmia (Atrial fibrillation), Asthma, CAD, CHF, HTN, Hypercholesterolemia, IDDM, CO, Hypothyroidism and Other (PNA, Cellulitis, Chronic Lymph edema
Additional Past Surgical History:
Cardiac (cardioversion, Stents X 2), Cholecystectomy
Allergy History:
cat dander Allergy (Verified 01/25/24 15:07)
ASTHMA/SOB
levofloxacin [From Levaquin Leva-Carlos] Allergy (Verified 01/25/24 15:07)
Hives
Penicillins Allergy (Verified 01/25/24 21:34)
Shortness of Breath
piperacillin Allergy anaphylaxis - updated by me
Sulfa (Sulfonamide Antibiotics) Allergy (Verified 01/25/24 15:07)
Hives
vancomycin [Vancomycin] Allergy (Verified 01/25/24 15:07)
Rash/red tino syndrome
Medications Reviewed: Yes
Social History
Tobacco: Former Smoker
Alcohol: Daily (vodka 1 large glass)
Drug: None
Family History
Family History: Not Pertinent
Review of Systems
Review of Systems
General: Negative Fever or Chills
All systems: All other systems were reviewed and were negative
Vital Signs
Temp Pulse Resp BP Pulse Ox
98.7 F 117 18 100/68 94
01/26/24 07:32 01/26/24 08:47 01/26/24 08:19 01/26/24 08:47 01/26/24 08:19
Physical Exam
Physical Exam
Constitutional: No Acute Distress and Obese
Cardiovascular: Regular Rate and S1/S2; Negative Murmur or Rub
Pulmonary: Clear and Symmetric; Negative Wheezes, Rales or Rhonchi
Gastrointestinal: Soft, Non Tender, Non Distended and Normal Bowel Sounds
Skin: Warm and Dry; Negative Rash or Jaundice
Lab / Diagnostic Study Results
01/26/24 03:47
01/26/24 03:47
Abs Immat Gran (auto) 0.2 10^3/uL (0-0.05) H 01/25/24 15:13
Absolute Neuts (auto) 7.8 10^3/uL (1.4-6.5) H 01/25/24 15:13
Absolute Lymphs (auto) 0.7 10^3/uL (1.2-3.4) L 01/25/24 15:13
Absolute Monos (auto) 0.6 10^3/uL (0.1-0.6) 01/25/24 15:13
Absolute Basos (auto) 0.1 10^3/uL (0-0.2) 01/25/24 15:13
Immature Gran % 1.9 % (0-0.5) H 01/25/24 15:13
Neutrophils % 81.8 % (42.2-75.2) H 01/25/24 15:13
Lymphocytes % 7.5 % (20.5-51.1) L 01/25/24 15:13
Monocytes % 6.1 % (1.7-9.3) 01/25/24 15:13
Eosinophils % 1.8 % (0-6) 01/25/24 15:13
Basophils % 0.9 % (0-2) 01/25/24 15:13
Microbiology Results
Micro:
01/26/24 03:47 MRSA Screen - Pending
Nose
Assessment / Plan
Heel Wound - acute on chronic
DM foot infection
Osteomyelitis of the L heel
DM2 recently uncontrolled
Long QTc
Allergy to Penicillin - anaphylaxis
Reported allergies to Levaquin (hives), sulfa (hives), vancomycin red man
- wound culture ordered and obtained by me
- MRI with contrast ordered - there is probe to bone on my exam
- agree with ABIs and venous US
- recent A1c uncontrolled, agree with repeat
- hold antibiotics for now - no acute need to start at this moment
- may benefit from debridement, biopsy for path and bone culture
Apparent Anaphylactic reaction to zosyn (penicillins)
- updated allergy history
- patient will be observed here x48 hours (and likely longer given heel wound) - note that there can be a biphasic course of anaphylaxis - if recurrent of symptoms would retreat
- note 2010 and 2014 IgE levels were remarkably high - recheck immunoglobulins
- recommend follow up with allergy outpatient
--- NOTE | 2024-01-26 11:08 | W.PN.HOSP.TC ---
Addendum entered and electronically signed by Jory Yao MD 01/26/24 12:04:
A/P:
# Possible Acute Respiratory Distress due to Anaphylaxis/type 1 allergic reaction to Zosyn
s/p Epi, IV Benadryl
s/p BiPAP, now on RA
# Left Heel DM Wound, Chronic L heel wound that is recently worse per patient.
L foot X-ray noted diffuse soft tissue swelling about the foot. Large posterior heel soft tissue wound. No convincing osteomyelitis.
Check MRI per ID
Can check venous and arterial US (poor palpable pulse)
Will hold on further abx for now
ID eval, Podiatry evaluation, Wound care CS
# ASCVD
Prior eval for PAD resulted in CARLOS showing only small vessel disease
Continue current med regimen including BID ASA, statin, etc.
# Acute on Chronic HFpEF
# Pulmonary Hypertension
# Valvular Heart Disease
Continue IV Lasix for now with 80mg BID dosing. Follow I/Os, daily weights, etc.
Echo done last in November with normal LVEF, mitral / tricuspid regurg.
# Paroxysmal Atrial Fibrillation
Continue OP regimen of Dig, verapamil and metoprolol.
# Asthma / COPD, stable
Off BiPAP
Patient on no maintenance medications.
Albuterol PRN.
# DM-II, Stable.
Continue basal : bolus insulin regimen.
Hold PO metformin acutely.
Follow glucose and cover with SSI as needed.
Update A1C.
# Hypothyroidism, Stable.
Continue current T4 supplementation.
# s/p L Reverse Shoulder Arthroplasty, had surgery on 12/12/23.
Steri strips still in place.
PT / OT evaluations.
# Morbid Obesity due to excess calories, BMI 44
Affects all aspects of care.
Encourage healthy diet and increased activity as able with goal of weight loss.
DVT Prophylaxis: Lovenox
Code Status: Full
Original Note:
Today's Communication/Plan
-
Continue monitoring for any further instances of anaphylaxis. Monitor telemetry, check for results of ultrasound. Await ID evaluation and recommendations for antibiotics.
Assessment / Plan
Assessment / Plan
Assessment:
73y F with PMH significant for ASCVD, HTN and DM-II, Paroxysmal A-Fib, Chronic HFpEF, and Asthma/COPD presented to ED for evaluation of L heel wound. Patient was having wound managed at a rehab facility but recently let herself out of the
facility yesterday. Patient came to the ED due to increased drainage and pain. In the ED, patient was given a dose of Zosyn which precipitated an abrupt onset of respiratory distress. Patient was given epinephrine and Benadryl which relieved her
symptoms.
Plan:
Acute Respiratory Distress / Anaphylaxis
- Admitted to IMU on BiPAP
- Weaned to Room Air, no further anaphylactic events
- Continue IV Benadryl / supportive care
- PCN allergy now noted, not listed in her record prior
Left Heel DM Wound
- Chronic Left heel wound, worsening according to the patient
- Wound/Ostomy Consult for further management of wound, input appreciated
- Podiatry evaluation for further treatment, input appreciated
- X-ray foot in ED showed no evidence of osteomyelitis, awaiting ID input before potential MRI
- ID consulted, input appreciated for which abx to put patient on
ASCVD
- Bilateral Pedal pulses very faint
- US LE Arterial with CARLOS ordered due to increasing erythema/cellulitis on bilateral lower legs
- US Peripheral Venous Bilateral LE- checking whether increasing erythema is due to DVT
Acute on Chronic HFpEF
Pulmonary Hypertension
Valvular Heart Disease
- CXR and exam c/w some degree of volume overload.
- Continue IV Lasix for now with 80mg BID dosing.
- Follow I/Os, daily weights, etc.
- Echo done last in November with normal LVEF, mitral / tricuspid regurg.
Paroxysmal Atrial Fibrillation
- Tachycardic in the ED s/p respiratory distress and then administration of epinephrine.
- Monitor on telemetry.
- EKG showed ATRIAL FIBRILLATION WITH RAPID VENTRICULAR RESPONSE
RIGHT BUNDLE BRANCH BLOCK
- Continue OP regimen of Dig, verapamil and metoprolol.
- Consider diltiazem gtt if rates do not improve with time after epi dosing / resp distress / etc
- Continues to be tachycardic
Asthma / COPD
- No evidence of wheezing on exam.
- BiPAP overnight as noted above.
- Now on Room Air, no further shortness of breath since incidence
- Patient on no maintenance medications.
- Albuterol PRN.
DM-II
- Stable. Continue basal : bolus insulin regimen.
- Hold PO metformin acutely.
- Follow glucose and cover with SSI as needed.
- HbA1c 8.0, counseling aide about better management at home
Hypothyroidism
- Stable. Continue current T4 supplementation.
s/p L Reverse Shoulder Arthroplasty
- Had surgery on 12/12/23.
- Steri strips still in place.
- PT / OT evaluations.
Morbid Obesity due to excess calories
- Affects all aspects of care.
- Encourage healthy diet and increased activity as able with goal of weight loss.
DVT Prophylaxis: Lovenox
Code Status: Full
Anticipated Discharge: 24 - 48 hours
Subjective/Interval History
-
Date of Service: January 26, 2024
Patient has been feeling well since her acute anaphylaxis event in the ED. Has had no further exacerbation of symptoms. Says she has had no fever, shortness of breath, chest pain, nausea or vomiting.
Objective Data
-
Labs:
Laboratory Results
01/26/24
03:47
WBC 10.1
Hgb 10.1 L
Hct 31.9 L
Plt Count 289
Sodium 140
Potassium 3.7
Chloride 103
Carbon Dioxide 28
BUN 30 H
Creatinine 0.9
Glucose 215 H
Calcium 8.6
Vital Signs:
Vital Signs
Temp Pulse Resp BP Pulse Ox
98.7 F 117 18 100/68 94
01/26/24 07:32 01/26/24 08:47 01/26/24 08:19 01/26/24 08:47 01/26/24 08:19
I&O
01/25/24 01/26/24 01/27/24
06:59 06:59 06:59
Output Total 650 / 650
Balance -650 / -650
Review of Systems
-
History Source: Patient
Constitutional: Denies Fever, No Appetite, Fatigue, Chills or Weakness
Respiratory: Denies Cough, Trouble Breathing or Wheezing
Cardiac: Denies Chest Pain, Palpitations or Syncope
Abdomen/GI: Denies Abdominal Pain, Nausea or Vomiting
Musculoskeletal: Reports Edema (bilateral lower extremities)
Skin: Reports Other (erythema bilateral lower legs, left heel wound)
Neuro: Denies Headache, Weakness or Numbness
Physical Exam
-
General: Well Developed, Well Nourished, No Apparent Distress and Comfortable
HEENT: Normocephalic and Atraumatic
Respiratory: Clear to Auscultation, Wheezes and Non Labored Respirations
Cardiac: S1/S2, Irregular Rhythm and Tachycardic
GI: Soft, Nontender and Nondistended
Musculoskeletal: No Clubbing, No Cyanosis, Edema, Right Lower Extrem, Edema, Left Lower Extrem and Other (3-4+ brawny edema b/l LEs. Mild R heel pressure / erythema. L heel with large ulceration with malodor, No bleeding or drainage at present,
Necrotic edges. Bilateral pedal pulses faint)
Skin: Warm, Dry and Other
Neuro: Awake, Alert, Oriented and AO x 3
Psych: Calm
Data Reviewed
-
Diagnostic Radiology: Report Reviewed by me, Discussed with Physician and Discussed with Patient
Labs: Labs Reviewed by me, Discussed with Physician and Discussed with Patient
--- NOTE | 2024-01-26 11:34 | CM ---
Patient seen at bedside. Patient states that she is living with her son and his family. Patient states that she has a stair glide and a walker. Patient stated that the home was 2 stories. Patient stated that her PCP was an [facility] with [facility] and that she uses the [facility] in [place] for medications. Patient was at [facility] and refuses to return there. Patient stated that she would like to have [facility] restart as they were in place prior to hospitalization. Patient for testing
today. CM will continue to follow for discharge planning needs.
Plan; home with VN; [facility]
--- NOTE | 2024-01-26 12:27 | WOUNDNOTE ---
[facility] RN NOTE: Reviewed chart and met with patient. Patient is a good historian, has several co-morbidities and multiple hospitalizations. Her legs appear to have venous stasis vs lymphedema changes and patient denies wearing compression. She follows
with Dr. Galarza as an outpatient for her chronic left heel stage 4 PI. The wound is necrotic appearing with scant drainage and odor. Patient reports having a wound vac to the left heel in the past for several months. Patient reports that she
has been referred to vascular surgery but is not a candidate for surgery. She reports that right heel unstageable wound is new since she has been to rehab. She reports spending a lot of time in bed while in rehab and was not off-loading heels. She
reports that both of her heel wounds have worsened recently. Recent HgbA1c is 8.0. Wound cultures have been sent and plan is for ultrasound and MRI. Both wounds were cleaned with Vashe and covered with dry dressing while awaiting podiatry consult.
Sacrum blanchable. Air filled boots ordered. TT Dr. Galarza with update. Will follow as needed.
[2024-01-26] MEDS: LANOXIN 125 MCG PO (12:46)
[2024-01-26] MEDS: NOVOLOG FLEXPEN-MODERATE RESISTANCE 3 UNITS SC (15:25)
[2024-01-26 15:35] LABS: Glucose - Point of Care 219 mg/dl (70-99)
--- NOTE | 2024-01-26 15:35 | WOUNDNOTE ---
[facility] RN NOTE: Received order from podiatry to change dressing to dry gauze and shari. Order updated. RN Fay made aware.
[2024-01-26] MEDS: LOVENOX 40 MG SC (18:32)
[2024-01-26] MEDS: LANTUS 0.24 UNITS SC (18:32)
[2024-01-26] MEDS: NOVOLOG FLEXPEN-MODERATE RESISTANCE 5 UNITS SC (18:34)
[2024-01-26 18:41] LABS: Glucose - Point of Care 254 mg/dl (70-99)
--- NOTE | 2024-01-26 19:35 | PTCARENOTE ---
Wound care re-done by this RN per [facility] RN request via TT, changed to dry gauze dressing ....Plan discussed with Dr. Davila (podiatry)..Dr. Galarza will be in tomorrow to debride wound. Pt updated, call duque in reach.
[2024-01-26] MEDS: SENOKOT 17.2 MG PO (21:17)
[2024-01-26] MEDS: COLACE 100 MG PO (21:17)
[2024-01-26] MEDS: LIPITOR 40 MG PO (21:18)
[2024-01-26] MEDS: ZOLOFT 50 MG PO (21:19)
[2024-01-26] MEDS: TYLENOL 650 MG PO (21:19)
--- NOTE | 2024-01-26 22:20 | W.PN.POD ---
Today's Communication
- Today's Communication
consult diabetic left heel wound
Assessment / Plan
- -
large diabetic heel wound left foot
pressure wound right heel
x-rays left heel negative
mri ordered, awaiting results
arterial ultrasound only small vessel disease
no interventional lesions
local wound care noted
strict offloading heels in bed
heel relief shoe out of bed
family will bring from home
dr Galarza consult tomorrow
past treatment with wound vac
will schedule debridement
Subjective/Objective
- Chief Complaint
diabetic heel wound left foot worsening
- Subjective
73 y/o female IDDM presents with worsening left heel wound
noticed bad odor with increase pain and drainage
has had ulcer and cellulitis in the past
was on antibiotics for UTI
shoulder replacement with rehab at [facility]
in bed alot and not offloading heels
- Objective
Temp Pulse Resp BP Pulse Ox
98.3 F 87 28 91/55 88
01/26/24 20:09 01/26/24 22:00 01/26/24 22:00 01/26/24 22:00 01/26/24 14:39
01/26/24 03:47
01/26/24 03:47
Vital Signs and Lab results were reviewed.
large deep pressure ulcer posterior left heel
dry necrotic edges
surrounding erythema
pressure ulcer also noted right heel
necrotic with moderate drainage, unstageable
[2024-01-26 22:42] LABS: Glucose - Point of Care 219 mg/dl (70-99)
[2024-01-27] VITALS (13 sets, daily range): BP systolic 95–141; BP diastolic 40–89; BMI 44.3
--- NOTE | 2024-01-27 02:27 | PTCARENOTE ---
Pt refused CPAP at bed time. Pt SPO2 spot checked throughout nigh, unremarkable. Pt needing help with turns when she allows, education given on risks. Assessment care and vitals as charted. Call duque within reach.
[2024-01-27] MEDS: SYNTHROID 125 MCG PO (04:23)
[2024-01-27 04:56] LABS: Hematocrit 30.6 % (37.0-47.0); Hemoglobin 9.6 g/dL (12.0-16.0); Mean Corp Hgb Conc. 31.4 g/dL (33.0-37.0); Mean Corpuscular Hgb 26.5 pg (27.0-31.0); Mean Corpuscular Volume 84.5 fL (81.0-99.0); Mean Platelet Volume 9.9 fL (7.4-10.4); Platelet Count 285 10^3/uL (130-400); Red Blood Cell Count 3.62 10^6/uL (4.20-5.40); Red Cell Dist. Width 15.8 % (11.5-14.5); White Blood Cell Count 8.5 10^3/uL (4.8-10.8)
[2024-01-27 05:01] LABS: Blood Urea Nitrogen 30 mg/dl (7-17); Calcium 8.9 mg/dl (8.4-10.2); Carbon Dioxide 32 mmol/L (22-30); Chloride 103 mmol/L (98-107); Estimated Creatinine Clearance 59 ml/min; Glucose 102 mg/dl (70-99); Magnesium 2.1 mg/dl (1.6-2.3); Sodium 141 mmol/L (135-145); eGFR 58.75
[2024-01-27] MEDS: ROXICODONE 10 MG PO (05:48)
[2024-01-27 08:27] LABS: Glucose - Point of Care 90 mg/dl (70-99)
--- NOTE | 2024-01-27 08:29 | W.PN.HOSP.TC ---
Today's Communication/Plan
-
see A/P
Assessment / Plan
Assessment / Plan
A/P:
# Possible Acute Respiratory Distress due to Anaphylaxis/type 1 allergic reaction to Zosyn
s/p Epi, IV Benadryl
s/p BiPAP, now on RA
# Left Heel DM Wound, Chronic L heel wound that is recently worse per patient.
# BL PAD, L > R
L foot X-ray noted diffuse soft tissue swelling about the foot. Large posterior heel soft tissue wound. No convincing osteomyelitis.
Check MRI L foot
venous US neg for DVT
arterial US noted Left toe brachial index measures 0.37, compared to 0.59 on prior. Right toe brachial index measures 0.37, compared to 0.34 on prior study.
vascular CS for worsening L PAD
Continue current med regimen including BID ASA, statin, etc.
Off further abx for now
Podiatry on board with plan for debridement
ID on board / Wound care on board
# Incidental finding of left groin mass noted from US, with internal vascularity. Pt informed
Unclear benign or malignant
Check CT AP with IVF bolus after CT for renal protection
# Acute on Chronic HFpEF, improved
# Pulmonary Hypertension
# Valvular Heart Disease
Continue IV Lasix for now with 80mg BID dosing. Follow I/Os, daily weights, etc.
Echo done last in November with normal LVEF, mitral / tricuspid regurg.
# Paroxysmal Atrial Fibrillation
Continue OP regimen of Dig, verapamil and metoprolol.
# Asthma / COPD, stable
Off BiPAP
Patient on no maintenance medications. Albuterol PRN.
# DM-II, Stable.
Continue basal : bolus insulin regimen. Adjust Lantus to 20 units HS ([employer] 28 units HS)
Hold PO metformin acutely.
Follow glucose and cover with SSI as needed.
A1C 8.0%.
# Hypothyroidism, Stable.
Continue current T4 supplementation.
# s/p L Reverse Shoulder Arthroplasty, had surgery on 12/12/23.
Steri strips still in place.
PT / OT recc SNF
# Morbid Obesity due to excess calories, BMI 44
Affects all aspects of care.
Encourage healthy diet and increased activity as able with goal of weight loss.
DVT Prophylaxis: Lovenox
Code Status: Full
DW RN
DW Telephoner, DW vascular
total time spent 51 min
Anticipated Discharge: > 48 hours
Subjective/Interval History
-
Date of Service: January 27, 2024
Objective Data
-
Labs:
Laboratory Results
01/27/24
04:29
WBC 8.5
Hgb 9.6 L
Hct 30.6 L
Plt Count 285
Sodium 141
Potassium 4.0
Chloride 103
Carbon Dioxide 32 H
BUN 30 H
Creatinine 1.0
Glucose 102 H
Calcium 8.9
Vital Signs:
Vital Signs
Temp Pulse Resp BP Pulse Ox
36.9 C 87 21 104/52 93
01/27/24 02:36 01/27/24 06:00 01/27/24 06:00 01/27/24 06:00 01/27/24 04:42
I&O
01/26/24 01/27/24 01/28/24
06:59 06:59 06:59
Intake Total 1330 / 1330
Output Total 650 / 650
Balance 680 / 680
Review of Systems
-
All other systems: Reviewed and negative
Physical Exam
-
General: Well Developed, Well Nourished, No Apparent Distress, Comfortable, Conversant and Morbidly Obese
HEENT: Normocephalic and Atraumatic
Respiratory: Clear to Auscultation, Wheezes and Non Labored Respirations; Negative Accessory Resp Muscle Use
Cardiac: S1/S2
GI: Soft, Nontender and Nondistended
Musculoskeletal: No Clubbing, No Cyanosis, Edema, Right Lower Extrem, Edema, Left Lower Extrem and Other (see wound care note)
Skin: Warm and Dry
Neuro: Awake, Alert, Oriented and AO x 3
Psych: Calm and Intact Judgement/Insight
Data Reviewed
-
Labs: Labs Reviewed by me
[2024-01-27] MEDS: NOVOLOG FLEXPEN-MODERATE RESISTANCE SC (09:45)
[2024-01-27] MEDS: LASIX 80 MG IV ×2 (09:46→17:17)
[2024-01-27] MEDS: DESENEX/MITRAZOL/ZEASORB 1 APPLIC TOPICAL ×2 (09:47→19:53)
[2024-01-27] MEDS: COLACE 100 MG PO ×2 (09:48→19:52)
[2024-01-27] MEDS: SINGULAIR 10 MG PO (09:48)
[2024-01-27] MEDS: SENOKOT 17.2 MG PO ×2 (09:48→19:52)
[2024-01-27] MEDS: TOPROL XL 25 MG PO (09:48)
[2024-01-27] MEDS: CALAN EXTENDED RELEASE 240 MG PO (09:48)
[2024-01-27] MEDS: ASPIR LOW (ENTERIC COATED) 81 MG PO ×2 (09:48→19:51)
[2024-01-27] MEDS: KCL 20 MEQ PO ×2 (09:48→19:51)
[2024-01-27] MEDS: NEURONTIN 300 MG PO ×2 (09:48→19:51)
[2024-01-27] MEDS: PROTONIX 40 MG PO (09:48)
--- NOTE | 2024-01-27 11:19 | PTCARENOTE ---
Pt sent for MRI and will send for CT abdomen after. Pt was able to ambulate with RW and standby assist from bed out to stretcher in [place]. Gait slow but steady.
[2024-01-27] MEDS: LANOXIN 125 MCG PO (13:13)
[2024-01-27] MEDS: NOVOLOG FLEXPEN-MODERATE RESISTANCE 1 UNITS SC (13:15)
[2024-01-27 13:25] LABS: Glucose - Point of Care 152 mg/dl (70-99)
[2024-01-27] MEDS: NSS 250 IV (15:35)
--- NOTE | 2024-01-27 15:42 | W.PN.POD ---
Today's Communication
Today's Communication
Will schedule for surgical debridement either tomorrow or Monday
Assessment / Plan
-
A/P : B/L heel eschars probably pressure related with LT side worse with deroofed eschar and serous drainage
Rt heel dry intact eschar
Diabetic small vessel disease
Chronic b/l lower leg lymphedema
Obesity
Plan : Cont iV abx
Pending vascular surgery evaluation
x-rays left heel negative for any bone erosion
mri ordered, awaiting results
arterial ultrasound only small vessel disease
Will schedule for LT heel surgical debridement tomorrow or Monday
Followed with possible wound VAc
Will cont with local wound care till wound VAC is placed
strict offloading heels in bed
heel relief shoe out of bed
will schedule debridement
Subjective
Chief Complaint
B/L heels eschar with malodor to Lt heel
Subjective
Pt seen at bedside, doing ok, no fever, chills. Denies nay acute distress, no chest pain, no SOB.
Objective
Temp Pulse Resp BP Pulse Ox
98.0 F 60 18 114/88 93
01/27/24 13:15 01/27/24 13:13 01/27/24 10:00 01/27/24 10:00 01/27/24 04:42
01/27/24 04:29
01/27/24 04:29
Vital Signs and Lab results were reviewed.
B/L lower legs with chronic lymphedema changes
Lt heel with necrotic tissue and presence of malodor noted, no crepitus felt,no exposed bone, no deep tunneling noted.
Rt heel with intact eschar , no active drainage, no local erythema, noted, no exposed bone no foul odor noted.
[2024-01-27] MEDS: LOVENOX 40 MG SC (17:18)
--- NOTE | 2024-01-27 17:39 | PTCARENOTE ---
Small skin tear on right forearm occured when transferring patient to toilet, dressed with silicone border foam .Plan discussed with Drs. Yao and Geovanni today, will send pt for heel debridment possibly tomorrow or monday at the latest. Will
most likely need wound vac. Pt to be NPO after midnight. Pt verbalized understanding. New PIV site placed by TANISHA Ny. 250 ml bolus running.
[2024-01-27 17:49] LABS: Glucose - Point of Care 232 mg/dl (70-99)
[2024-01-27] MEDS: LANTUS 0.2 UNITS SC (18:01)
[2024-01-27] MEDS: NOVOLOG FLEXPEN-MODERATE RESISTANCE 3 UNITS SC (18:01)
[2024-01-27] MEDS: ZOLOFT 50 MG PO (21:14)
[2024-01-27] MEDS: LIPITOR 40 MG PO (21:14)
[2024-01-27 21:48] LABS: Glucose - Point of Care 213 mg/dl (70-99)
[2024-01-28] VITALS (15 sets, daily range): BP systolic 94–139; BP diastolic 50–104; BMI 44.8; BMI 44.5
[2024-01-28] MEDS: TYLENOL 650 MG PO (00:31)
[2024-01-28] MEDS: SYNTHROID 125 MCG PO (05:37)
[2024-01-28 05:53] LABS: Glucose - Point of Care 99 mg/dl (70-99)
--- NOTE | 2024-01-28 06:04 | PTCARENOTE ---
Addendum entered by Terri Nguyen RN 01/28/24 06:07:
TruVue lite heel protectors applied to elevate heel off bed
Original Note:
Pt daily weight BS and SS for accurate measurement. Pt NPO since midnight incase going to OR today. CHG wipes and full bed change done. Call duque within reach. Assessment care and vitals as charted.
[2024-01-28 06:20] LABS: Hematocrit 30.4 % (37.0-47.0); Hemoglobin 9.6 g/dL (12.0-16.0); Mean Corp Hgb Conc. 31.6 g/dL (33.0-37.0); Mean Corpuscular Hgb 25.7 pg (27.0-31.0); Mean Corpuscular Volume 81.5 fL (81.0-99.0); Mean Platelet Volume 9.6 fL (7.4-10.4); Platelet Count 321 10^3/uL (130-400); Red Blood Cell Count 3.73 10^6/uL (4.20-5.40); White Blood Cell Count 7.3 10^3/uL (4.8-10.8)
[2024-01-28 06:41] LABS: Blood Urea Nitrogen 30 mg/dl (7-17); Calcium 8.9 mg/dl (8.4-10.2); Carbon Dioxide 28 mmol/L (22-30); Chloride 104 mmol/L (98-107); Estimated Creatinine Clearance 59 ml/min; Glucose 79 mg/dl (70-99); Potassium 4.3 mmol/L (3.5-5.1); Sodium 140 mmol/L (135-145); eGFR 58.75
[2024-01-28] MEDS: NOVOLOG FLEXPEN-MODERATE RESISTANCE SC ×2 (08:16→14:50)
--- NOTE | 2024-01-28 08:19 | W.PN.HOSP.TC ---
Addendum entered and electronically signed by Jory Yao MD 01/28/24 19:54:
Benefit of surgical procedure/debridement outweighs risk.
Pt is medically stable/optimized for low risk procedure. Elevated CVS risk due to existing CHF and insulin usage. May proceed procedure with caution.
Original Note:
Today's Communication/Plan
-
see A/P
Assessment / Plan
Assessment / Plan
A/P:
# Possible Acute Respiratory Distress due to Anaphylaxis/type 1 allergic reaction to Zosyn
s/p Epi, IV Benadryl
s/p BiPAP, now on RA
# Left Heel DM Wound, Chronic L heel wound that is recently worse per patient.
# BL PAD, L > R
L foot X-ray noted diffuse soft tissue swelling about the foot. Large posterior heel soft tissue wound. No convincing osteomyelitis.
However, MRI L foot is suggestive of osteomyelitis of posterior calcaneus
Podiatry on board with plan for debridement, timing TBD
venous US neg for DVT
arterial US noted Left toe brachial index measures 0.37, compared to 0.59 on prior. Right toe brachial index measures 0.37, compared to 0.34 on prior study.
vascular consulted for worsening LLE PAD
Continue current med regimen including BID ASA, statin, etc.
Off further abx for now
ID on board / Wound care on board
# Incidental finding of left groin mass noted from US, with internal vascularity.
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
Pt informed of finding.
# Increased in size of Left adrenal gland mass (incidental finding) from CT AP.
Pt informed of finding.
Recc Outpt work up
# Acute on Chronic HFpEF, improved
# Pulmonary Hypertension
# Valvular Heart Disease
Continue IV Lasix for now with 80mg BID dosing. Follow I/Os, daily weights, etc.
Echo done last in November with normal LVEF, mitral / tricuspid regurg.
# Paroxysmal Atrial Fibrillation
Continue OP regimen of Dig, verapamil and metoprolol.
# Asthma / COPD, stable
Off BiPAP
Patient on no maintenance medications. Albuterol PRN.
# DM-II, Stable.
Continue basal : bolus insulin regimen. 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
Hold PO metformin acutely.
Follow glucose and cover with SSI as needed.
A1C 8.0%.
# Hypothyroidism, Stable.
Continue current T4 supplementation.
# s/p L Reverse Shoulder Arthroplasty, had surgery on 12/12/23.
Steri strips still in place.
PT / OT recc SNF
# Morbid Obesity due to excess calories, BMI 44
Affects all aspects of care.
Encourage healthy diet and increased activity as able with goal of weight loss.
DVT Prophylaxis: Lovenox
Code Status: Full
Dispo: eventual SNF
Anticipated Discharge: > 48 hours
Subjective/Interval History
-
Date of Service: January 28, 2024
Objective Data
-
Labs:
Laboratory Results
01/28/24
05:56
WBC 7.3
Hgb 9.6 L
Hct 30.4 L
Plt Count 321
Sodium 140
Potassium 4.3
Chloride 104
Carbon Dioxide 28
BUN 30 H
Creatinine 1.0
Glucose 79
Calcium 8.9
Vital Signs:
Vital Signs
Temp Pulse Resp BP Pulse Ox
36.4 C 79 14 116/72 94
01/28/24 03:21 01/28/24 06:00 01/28/24 06:00 01/28/24 06:00 01/27/24 20:02
I&O
01/27/24 01/28/24 01/29/24
06:59 06:59 06:59
Intake Total 1330 / 1330 970 / 970
Output Total 650 / 650 400 / 400
Balance 680 / 680 570 / 570
Review of Systems
-
All other systems: Reviewed and negative
Physical Exam
-
General: Well Developed, Well Nourished, No Apparent Distress, Comfortable, Conversant, Appears Chronically Ill and Morbidly Obese
HEENT: Normocephalic and Atraumatic
Respiratory: Clear to Auscultation, Wheezes and Non Labored Respirations; Negative Accessory Resp Muscle Use
Cardiac: S1/S2
GI: Soft, Nontender and Nondistended
Musculoskeletal: No Clubbing, No Cyanosis, Edema, Right Lower Extrem, Edema, Left Lower Extrem and Other (see wound care note)
Skin: Warm and Dry
Neuro: Awake, Alert, Oriented and AO x 3
Psych: Calm and Intact Judgement/Insight
Data Reviewed
-
CT Scan: Report Reviewed by me and Discussed with Patient
MRI: Report Reviewed by me and Discussed with Patient
Labs: Labs Reviewed by me
--- NOTE | 2024-01-28 08:25 | W.PN.VS ---
Today's Communication / Plan
-
debridement today by podiatry
Assessment/Plan
-
heal ulcers bilat
- ok for debridement
- will discuss with team if any role for agram
- cont to offload
- wrap legs with age from toes to thigh to help with edema
Subjective Data
-
Date of Service: January 28, 2024
patient with bilat heal ulcers
had for some time
wax and wane in severity
Objective Data
-
Vital Signs
Temp Pulse Resp BP Pulse Ox
97.6 F 79 14 116/72 94
01/28/24 03:21 01/28/24 06:00 01/28/24 06:00 01/28/24 06:00 01/27/24 20:02
Intake and Output
01/27/24 01/28/24 01/29/24
06:59 06:59 06:59
Intake Total 1330 / 1330 970 / 970
Output Total 650 / 650 400 / 400
Balance 680 / 680 570 / 570
Intake:
Oral fluids 1330 / 1330 720 / 720
IV fluids (Total) 250 / 250
Output:
Urine, Voided 650 / 650 400 / 400
Other:
Number of approximated MODERATE 1
amounts of urine
How many times incontinent 1
MODERATE amount urine
How many times incontinent 1 1
SATURATED amount urine
Lab Results
01/28/24 05:56
01/28/24 05:56
Calcium 8.9 mg/dl (8.4-10.2) 01/28/24 05:56
Magnesium 2.1 mg/dl (1.6-2.3) 01/27/24 04:29
Total Bilirubin 0.6 mg/dl (0.2-1.3) 01/25/24 15:13
AST 18 U/L (14-36) 01/25/24 15:13
ALT 10 U/L (0-35) 01/25/24 15:13
Alkaline Phosphatase 105 U/L (38-126) 01/25/24 15:13
Total Protein 6.3 g/dl (6.3-8.2) 01/25/24 15:13
Albumin 3.5 g/dl (3.5-5.0) 01/25/24 15:13
Physical Exam
-
rrr
ctab
edematous legs bilat (chronic)
heal wounds bilat left worse than right
carrie - pulsatile waveforms in ankle. toe pressure 34 bilat
patient reports she had agram previously and was told no revasc options (i can find images)
[2024-01-28] MEDS: COLACE 100 MG PO (08:56)
[2024-01-28] MEDS: NEURONTIN 300 MG PO ×2 (08:56→20:48)
[2024-01-28] MEDS: SENOKOT 17.2 MG PO (08:58)
[2024-01-28] MEDS: CALAN EXTENDED RELEASE PO (08:58)
[2024-01-28] MEDS: KCL 20 MEQ PO ×2 (08:58→20:48)
[2024-01-28] MEDS: ASPIR LOW (ENTERIC COATED) 81 MG PO ×2 (08:58→20:47)
[2024-01-28] MEDS: SINGULAIR 10 MG PO (08:59)
[2024-01-28] MEDS: TOPROL XL 25 MG PO (08:59)
[2024-01-28] MEDS: PROTONIX 40 MG PO (08:59)
[2024-01-28] MEDS: LASIX IV (09:02)
[2024-01-28] MEDS: DESENEX/MITRAZOL/ZEASORB 1 APPLIC TOPICAL ×2 (09:02→20:50)
--- NOTE | 2024-01-28 09:18 | W.PN.ID1 ---
Date of Service
Date of Service: January 28, 2024
Today's Communication
Observe off antibiotics. Await tentative calcaneus debridement and biopsy.
Assessment / Plan
(L) heel Wound - acute on chronic
DM foot infection
Osteomyelitis of the (L) heel
DM2 recently uncontrolled
Long QTc
Allergy to Penicillin - anaphylaxis
Reported allergies to Levaquin (hives), sulfa (hives), vancomycin red man
- wound culture pending
- hold antibiotics for now
- For tentative debridement & biopsy; please send for path and bone culture
Apparent Anaphylactic reaction to zosyn (penicillins)
- updated allergy history
����������������������������������������������������������
Chief Complaint
-: Other (Left heel osteomyelitis)
Subjective / Review of Systems
Review of Systems: No Fever, No Chills and No Cough
Vital Signs / Physical Exam
Vital Signs
Vital Signs
Temp Pulse Resp BP Pulse Ox
97.5 F 79 14 116/72 94
01/28/24 07:20 01/28/24 06:00 01/28/24 06:00 01/28/24 06:00 01/27/24 20:02
Physical Exam
Constitutional: No Acute Distress, Comfortable, Chronically Ill and Obese
Eyes: Pupils Equal, No Conjunctival Hemorrhage and Sclera Anicteric
Oropharyngeal: Benign
Cardiovascular: Regular Rate
Pulmonary: Symmetric and Non Labored
Gastrointestinal: Non Distended
Extremities: Edema and Other (NILAY wrap in place)
Skin: Warm and Dry
Neurological: Awake and Alert
Psychological: Calm
Objective Data
Lab Data
Lab Results
01/28/24 05:56
01/28/24 05:56
Estimated Creat Clear 59 ml/min 01/28/24 05:56
Total Bilirubin 0.6 mg/dl (0.2-1.3) 01/25/24 15:13
AST 18 U/L (14-36) 01/25/24 15:13
ALT 10 U/L (0-35) 01/25/24 15:13
Alkaline Phosphatase 105 U/L (38-126) 01/25/24 15:13
Most recent labs reviewed.
Micro Results:
01/26/24 12:05 Wound Culture - Preliminary
Foot - Left Gram negative bacilli
Gram Stain - Preliminary
01/26/24 03:47 MRSA Screen - Final
Nose No Methicillin Resistant Staphylococcus aureus isolated.
Imaging:
01/27/2024 MRI left lower extremity: A soft tissue defect involving the posterior heel extends to the posterior bony margin of the calcaneus. Enhancing signal noted in the posterior calcaneus highly suggestive of osteomyelitis.
[2024-01-28] MEDS: LANOXIN 125 MCG PO (12:00)
[2024-01-28 14:13] LABS: Glucose - Point of Care 103 mg/dl (70-99)
[2024-01-28] MEDS: LASIX 80 MG IV (15:44)
[2024-01-28 17:11] LABS: Glucose - Point of Care 170 mg/dl (70-99)
[2024-01-28] MEDS: NOVOLOG FLEXPEN-MODERATE RESISTANCE 1 UNITS SC (17:50)
[2024-01-28] MEDS: LANTUS 0.15 UNITS SC (17:51)
[2024-01-28] MEDS: LOVENOX 40 MG SC (17:51)
[2024-01-28] MEDS: SENOKOT PO (20:48)
[2024-01-28] MEDS: COLACE PO (20:48)
[2024-01-28] MEDS: LIPITOR 40 MG PO (21:10)
[2024-01-28] MEDS: ZOLOFT 50 MG PO (21:10)
--- NOTE | 2024-01-28 21:19 | W.PN.UPDATE ---
Update Note
Progress Note Update
Patient scheduled for LT heel debridement and possible bone biopsy LT heel 01/29/2024, D/W primary service for medial clearance. Patient is aware of risk of limb loss and no guarantees given to save the limb, all risks and complications, non
healing, reinfection, loosing the limb discussed, Patient agrees and wants to proceed with LT heel debridement and biopsy
--- NOTE | 2024-01-28 21:24 | PTCARENOTE ---
Received pt from maric[facility] G[facility]. Pt is AAOx3. Afib on the monitor. On RA O2 sat 95%, lungs clear. Pw in place for incont. Wound care provided for b/l heels. G bath and sheets changed. Pt is laying in bed with call duque in reach.
[2024-01-28 21:50] LABS: Glucose - Point of Care 225 mg/dl (70-99)
[2024-01-28 23:04] LABS: IgG 1184 mg/dl (700-1600); IgM 89 mg/dl (40-230)
[2024-01-28 23:21] LABS: IgA 124 mg/dl (70-400)
[2024-01-29] VITALS (16 sets, daily range): BP systolic 94–128; BP diastolic 47–98; BMI 44.6
[2024-01-29] MEDS: SYNTHROID 125 MCG PO (05:47)
[2024-01-29 05:58] LABS: Hematocrit 31.9 % (37.0-47.0); Hemoglobin 10.2 g/dL (12.0-16.0); Mean Corpuscular Hgb 26.8 pg (27.0-31.0); Mean Corpuscular Volume 83.7 fL (81.0-99.0); Mean Platelet Volume 9.6 fL (7.4-10.4); Platelet Count 292 10^3/uL (130-400); Red Blood Cell Count 3.81 10^6/uL (4.20-5.40); Red Cell Dist. Width 15.9 % (11.5-14.5); White Blood Cell Count 6.6 10^3/uL (4.8-10.8)
[2024-01-29 06:27] LABS: Blood Urea Nitrogen 22 mg/dl (7-17); Calcium 8.7 mg/dl (8.4-10.2); Carbon Dioxide 30 mmol/L (22-30); Chloride 106 mmol/L (98-107); Estimated Creatinine Clearance 85 ml/min; Glucose 111 mg/dl (70-99); Potassium 4.3 mmol/L (3.5-5.1); Sodium 143 mmol/L (135-145); eGFR > 60.00
[2024-01-29 07:08] LABS: IgE 420 kU/L (<=214)
[2024-01-29 08:26] LABS: Glucose - Point of Care 101 mg/dl (70-99)
--- NOTE | 2024-01-29 09:07 | W.PN.ID1 ---
Addendum entered and electronically signed by Hortencia Kearns MD 01/29/24 15:10:
anticipate likely course of home IV antibiotics
Original Note:
Date of Service
Date of Service: January 29, 2024
Today's Communication
- For tentative debridement & biopsy today; please send for path and bone culture
Assessment / Plan
(L) heel Wound - acute on chronic
DM foot infection
Osteomyelitis of the (L) heel
DM2 recently uncontrolled
Long QTc
Allergy to Penicillin - anaphylaxis
Reported allergies to Levaquin (hives), sulfa (hives), vancomycin red man
Class III obesity
- wound culture E coli, enterococcus, diptheroid
- hold antibiotics for now
- For tentative debridement & biopsy today; please send for path and bone culture
Anaphylaxis 01/24 - penicillin
- reviewed at length with patient 01/25 - she is clear that she shouldn't have penicillins in the future
- allergy follow up outpatient for anaphylaxis 01/24 and IgE remarkably improved but remains 2x ULN; other immunoglobulins normal
����������������������������������������������������������
Chief Complaint
-: Other (Left heel osteomyelitis)
Subjective / Review of Systems
afebrile
BP mildly hypotensive this AM
afib
no complaints
Vital Signs / Physical Exam
Vital Signs
Vital Signs
Temp Pulse Resp BP Pulse Ox
97.7 F 88 20 100/63 95
01/29/24 08:16 01/29/24 06:00 01/29/24 06:00 01/29/24 06:00 01/28/24 21:10
Physical Exam
Constitutional: No Acute Distress, Chronically Ill and Obese
Cardiovascular: Regular Rate and S1/S2; Negative Murmur or Rub
Pulmonary: Clear and Symmetric; Negative Wheezes or Rales
Gastrointestinal: Soft, Non Tender, Non Distended and Normal Bowel Sounds
Skin: Warm and Dry; Negative Rash or Jaundice
Wound: Other (L heel - prominent odor, there is some necrotic tissue, no surrounding cellulitis, R heel - proiment eschar without surrounding cellulitis)
Objective Data
Lab Data
Lab Results
01/29/24 05:45
01/29/24 05:45
Estimated Creat Clear 85 ml/min 01/29/24 05:45
Total Bilirubin 0.6 mg/dl (0.2-1.3) 01/25/24 15:13
AST 18 U/L (14-36) 01/25/24 15:13
ALT 10 U/L (0-35) 01/25/24 15:13
Alkaline Phosphatase 105 U/L (38-126) 01/25/24 15:13
Most recent labs reviewed.
Micro Results:
01/26/24 12:05 Wound Culture - Preliminary
Foot - Left Escherichia coli
Enterococcus species
Diptheroids
Gram Stain - Preliminary
01/26/24 03:47 MRSA Screen - Final
Nose No Methicillin Resistant Staphylococcus aureus isolated.
Imaging:
01/27/2024 MRI left lower extremity: A soft tissue defect involving the posterior heel extends to the posterior bony margin of the calcaneus. Enhancing signal noted in the posterior calcaneus highly suggestive of osteomyelitis.
[2024-01-29] MEDS: PROTONIX 40 MG PO (09:14)
[2024-01-29] MEDS: NEURONTIN 300 MG PO ×2 (09:14→20:13)
[2024-01-29] MEDS: CALAN EXTENDED RELEASE 240 MG PO (09:14)
[2024-01-29] MEDS: KCL 20 MEQ PO ×2 (09:15→20:13)
[2024-01-29] MEDS: SINGULAIR 10 MG PO (09:15)
[2024-01-29] MEDS: TOPROL XL 25 MG PO (09:15)
[2024-01-29] MEDS: LASIX 80 MG IV ×2 (09:18→17:24)
[2024-01-29] MEDS: DESENEX/MITRAZOL/ZEASORB 1 APPLIC TOPICAL ×2 (09:19→20:13)
--- NOTE | 2024-01-29 09:52 | CON.VAS ---
Addendum entered and electronically signed by Jone Fitzpatrick III, MD 01/29/24 20:28:
This patient was seen and examined with DB Duenas. I agree with the history and physical exam as well as the assessment and plan. I have the following additions:
73-year-old female with bilateral heel wounds
Previous left lower extremity arteriogram in August 2021 with no endovascular intervention performed. Extensive tibial disease identified as well as small vessel disease. Extremely poor perfusion to the heel was identified.
Had left heel debridement at that time
Now returns with bilateral heel wounds, LEFT >> RIGHT
MRI findings suspicious for osteo
Going for debridement with podiatry today
I reviewed her lower extremity noninvasive arterial studies as well as the CT Abd/Pelvis.
Her CARLOS's are falsely elevated bilaterally. TBI's reduced bilaterally. Likely tibial disease bilaterally as demonstrated on prior a'gram in 2021.
[address] and Duplex also demonstrate bilateral vascular malformations in the inguinal regions, likely low flow venous malformations. LEFT >> RIGHT.
She may benefit from an additional lower extremity arteriogram to determine if there is any revascularization option on either side, especially on the right which has not yet been evaluated.
Will discuss with Dr. Joy as he had previously evaluated her and follows her as an outpatient.
Signed:
Jone Fitzpatrick III, MD
[facility] Vascular Surgery
[phone] (onjg)
Original Note:
Consultation
Consultation Request
Performing Provider: Nanette
Reason for Consultation: BL heel wounds, nonhealing
Medical History
-
History of Present Illness:
73 yo female with PMH DM, CAD, HTN, afib, CHF, PAD here with nonhealing heel wounds BL. Last seen in our office on 08/04/23 s/p diagnostic angiogram and heel debridement on 09/01/21. Last office note below:
Notes: I reviewed noninvasive studies she completed on 07/07/2023. Right CARLOS 1.28 may be falsely elevated. TBI 0.34. Multiphasic waveforms in the common femoral through popliteal with no significant stenosis. Monophasic waveforms distally suggestive
of infrapopliteal disease. On the left side same findings. Multiphasic waveforms from common femoral through popliteal with monophasic waveforms distally. No definitive stenosis identified, though there is a distal SFA velocity of 212 cm/s appears
to have a velocity ratio just over 2 which may indicate a greater than 50% stenosis at that juncture. The left CARLOS is 1.29 which also may be falsely elevated. However the TBI 0.59. This should be more than adequate for wound healing in general of
the foot. I did review her prior angiogram that I performed. This had demonstrated that she has a single-vessel runoff via peroneal that reconstitutes the dorsalis pedis on the foot. However it is a relatively weak dorsalis pedis and it does give
moderate collateralization but there is no direct inline flow to the heel. Therefore her heel is susceptible to ulcers regardless. And there is no real great revascularization option there. However if she continues to have ulcers or this does not
heal completely, then would potentially advocate for angiography to just make sure there is no more proximal lesion such as the SFA as noted that could be treated and it would help. Assuming successful continued healing of this heel area, I will see
her on a yearly basis.
Vascular Procedures:
09/01/2021: Aortogram and pelvic angiogram, left lower extremity arteriogram. Left heel sharp debridement, excisional of eschar left heel approximately 3.5 to 4 cm diameter circular heel eschar through skin/subcutaneous tissue into the fatty tissue.
Right femoral 6-Turkish Angio-Seal closure.
Pt seen at bedside this am with Dr Fitzpatrick. Podiatry with plans to debride heels today.
Past Medical History
Past Medical History: Other (Diabetes Mellitus Type 2, Hypertension,�Coronary Artery Disease, s/p TX X 2, s/p PCI with 2 stents 1996,�Carotid artery disease-cardiac catheterization, A-Fib, Paroxysmal, Chronic anticoagulation, Congestive heart
failure,�ASTHMA / RAD,�B-COMPLEX DEFIC NEC, INSOMNIA,�BENIGN NEOPLASM ADRENAL,�ROSACEA)
Past Surgical History: Other (Cholecystectomy(1982), kidney stones removed, Tonsillectomy, percutaneous transluminal balloon angioplasty with insertion of stent into coronary artery(1996),�bladder repair(1982),�Cardiac ablation for Afib
03/21,Cardioversions x2 2017, Cardioversions x2 (september and february, Jul) 2019,2020, Skin CA)
Social History
Alcohol: None
Living: Jail
Allergies / Home Medications
Allergy/AdvReac Type Severity Reaction Status Date / Time
piperacillin Allergy Severe Anaphylaxis, Verified 01/26/24 09:48
SOB,
itching
01/25/24
cat dander Allergy ASTHMA/SOB Verified 01/25/24 15:07
levofloxacin Allergy Hives Verified 01/25/24 15:07
[From Levaquin Leva-Carlos]
Penicillins Allergy Shortness Verified 01/25/24 21:34
of Breath
Sulfa (Sulfonamide Allergy Hives Verified 01/25/24 15:07
Antibiotics)
vancomycin [Vancomycin] Allergy Rash/red Verified 01/25/24 15:07
tino
syndrome
�Medication �Instructions �Recorded �Confirmed �Type
albuterol sulfate 90 mcg/actuation 2 puff inhalation R Q4HPRN PRN 09/27/19 01/25/24 History
aerosol inhaler sob/wheezing
atorvastatin 40 mg tablet 40 mg PO HS High cholesterol 04/23/21 01/25/24 History
fenofibrate nanocrystallized 48 mg 48 mg PO HS High cholesterol 07/13/21 01/25/24 History
tablet
montelukast 10 mg tablet 10 mg PO DAILY Allergies 11/30/21 01/25/24 History
pantoprazole 40 mg tablet,delayed 40 mg PO DAILY Gastrointestinal 11/30/21 01/25/24 History
release issue
sertraline 50 mg tablet 50 mg PO HS Depression 11/30/21 01/25/24 History
furosemide 80 mg tablet 120 mg PO DAILY FLULID 08/08/23 01/25/24 History
digoxin 125 mcg (0.125 mg) tablet 125 mcg PO DAILY Heart 08/22/23 01/25/24 History
Disease/Condition
fluticasone 250 mcg-salmeterol 50 1 inh inhalation R DAILYPRN PRN 08/22/23 01/25/24 History
mcg/dose blistr powdr for sob/wheezing
inhalation (Advair Diskus)
furosemide 80 mg tablet 80 mg PO DAILY@1400 Fluid 08/22/23 01/25/24 History
Retention/Swelling
levothyroxine 125 mcg tablet 125 mcg PO DAILY Thyroid 08/22/23 01/25/24 History
(Synthroid)
metformin 500 mg tablet,extended 500 mg PO BID Diabetes 08/22/23 01/25/24 History
release 24 hr
potassium chloride 20 mEq 20 meq PO BID Electrolyte Repletion 08/22/23 01/25/24 History
tablet,extended release(part/cryst)
spironolactone 25 mg tablet 25 mg PO DAILY Heart Failure 08/22/23 01/25/24 History
verapamil 240 mg 24 hr 240 mg PO DAILY Blood Pressure 11/04/23 01/25/24 History
capsule,extended release
zolpidem 12.5 mg tablet,extended 12.5 mg PO HS Sleep 11/04/23 01/25/24 History
release,multiphase
metoprolol succinate 25 mg 25 mg PO DAILY #30 tabs 11/06/23 01/25/24 Rx
tablet,extended release 24 hr
aspirin 81 mg tablet,delayed 81 mg PO BID #0 tabs 12/14/23 01/25/24 Rx
release
docusate sodium 100 mg capsule 100 mg PO BID stool softner #1 cap 12/14/23 01/25/24 Rx
(Colace)
gabapentin 300 mg capsule 300 mg PO BID sleep/pain #10 caps 12/14/23 01/25/24 Rx
insulin glargine 100 unit/mL 28 unit (0.28 mL) SC QPM DM #1 mL 12/14/23 01/25/24 Rx
subcutaneous solution (Lantus
U-100 Insulin)
sennosides 8.6 mg tablet (Senokot) 17.2 mg (2 x 8.6 mg) PO BID 12/14/23 01/25/24 Rx
laxative #2 tabs
acetaminophen 325 mg capsule 650 mg PO Q6HPRN PRN mild 01/25/24 01/25/24 History
(Tylenol) pain/fever>100
bisacodyl 10 mg rectal suppository 10 mg WA DAILYPRN PRN if mom 01/25/24 01/25/24 History
(Dulcolax (bisacodyl)) ineffective
collagenase clostridium histo. 250 1 applic topical DAILY 01/25/24 01/25/24 History
unit/gram topical ointment (Santyl)
magnesium hydroxide 400 mg/5 mL 30 ml PO DAILYPRN PRN if no bm x 3 01/25/24 01/25/24 History
oral suspension (Milk of Magnesia) days
multivitamin (Daily-Marcia tablet) 1 tab PO DAILY Supplement 01/25/24 01/25/24 History
oxycodone 10 mg tablet 10 mg PO BID Pain 01/25/24 01/25/24 History
sodium phosphates 19 gram-7 118 ml WA DAILYPRN PRN if dulcolax 01/25/24 01/25/24 History
gram/118 mL enema (Fleet Enema) is ineffective
Review of Systems
-
History Source: Patient
All other systems: Negative unless noted
Constitutional: Reports No Symptoms
EENT: Reports No Symptoms
Respiratory: Reports No Symptoms
Cardiac: Reports No Symptoms
: Reports No Symptoms
Skin: Reports Other (BL heel wounds)
Physical Exam
Vital Signs
Temp Pulse Resp BP Pulse Ox
97.7 F 90 20 128/65 95
01/29/24 08:16 01/29/24 09:18 01/29/24 06:00 01/29/24 09:18 01/28/24 21:10
Lab Results
01/29/24 05:45
01/29/24 05:45
Physical Exam
General: No Apparent Distress
HEENT: Normocephalic and Atraumatic
Respiratory: Non Labored Respirations
Cardiac: Negative JVD
GI: Soft and Non Tender
Musculoskeletal: No Clubbing, No Cyanosis and Edema
Skin: Other (See wound care notes)
Neuro: Awake, Alert and Oriented
Psych: Calm
Assessment / Plan
-
73 yo female with nonhealing BL heel wounds
Plan:
-Will d/w attending
Data Reviewed
-
Labs: Labs Reviewed by me
[2024-01-29] MEDS: ASPIR LOW (ENTERIC COATED) 81 MG PO ×2 (10:05→20:13)
[2024-01-29] MEDS: COLACE PO (10:09)
[2024-01-29] MEDS: SENOKOT PO (10:10)
[2024-01-29] MEDS: NOVOLOG FLEXPEN-MODERATE RESISTANCE SC ×2 (10:12→17:26)
[2024-01-29 11:47] LABS: Glucose - Point of Care 99 mg/dl (70-99)
--- NOTE | 2024-01-29 11:48 | WOUNDNOTE ---
L GREAT TOE TIP
--- NOTE | 2024-01-29 11:49 | WOUNDNOTE ---
L FOOT/ANKLE (ANTERIOR)
--- NOTE | 2024-01-29 12:04 | WOUNDNOTE ---
[facility] RN note: Patient for L heel OR debridement today by Dr. Galarza today. Changed heels dressings. Heels off bed with TruVue lite boots. Patient stated she gets her legs wrapped with compression by a home lymphedema therapist at home. Sacrum
intact with small dull blanchable red area and few resolving faint bruises. L anterior proximal foot with healing linear abundio suspect from wraps. R anterior ankle with healing linear abundio suspect from wraps. Padded areas with silicone border foam.
Patient is on a [facility] Neura air bed. She helps with turning. Sanders texted Brianne March, Vascular REFINISH TECHNICIAN asking if knee high Erik wraps indicated. Await response.
[2024-01-29] MEDS: LANOXIN 125 MCG PO (12:13)
--- NOTE | 2024-01-29 13:30 | PTCARENOTE ---
Pt for OR for debridement. CHG wipes, linens changed, Betadine nasal swabs done per protocol. Pre-op checklist started. Report to ELECTRIC METER REPAIRER HELPER. To OR via bed.
[2024-01-29 15:26] LABS: Glucose - Point of Care 99 mg/dl (70-99)
--- NOTE | 2024-01-29 15:30 | W.SUR.POST ---
Surgical Immediate Post Op
Note
Pre Op Diagnosis: Lt heel eschar with acute osteomyelitis
Post Op Diagnosis: Same as above
Procedure Performed: Left heel debridement with LT heel bone biopsy
Primary Surgeon: Dr. Galarza DP
Secondary Surgeons: None
Anesthesia: MAC with local block
Estimated Blood Loss: 2cc's
Fluids: None
Drains/Shunts: None
Specimens/Cultures: Aerobic and anaerobic cultures with Bone biopsy
Doppler/Duplex/Angio (Y/N): N
Complications: None
Operative Findings: Loss of soft tissue plantar heel , palpable calcaneus in the center of the ulcer, no deep tissue purulence noted
--- NOTE | 2024-01-29 15:42 | CM ---
Patient with recent Hx s/p L Reverse Shoulder Arthroplasty, had surgery on 12/11 with Dx Possible Acute Respiratory Distress due to Anaphylaxis/type 1 allergic reaction to Zosyn, s/p Left heel debridement with LT heel bone biopsy today. Room air.
Receiving IV Lasix. NWB LLE. PT & OT 01/25; requires assist of 2, recommend skilled rehab.
Spoke with patient's son Amanuel; the patient was recently at [facility] and went home on 01/23 and still required assistance of 2 from lift chair to bathroo. She used up her 20 SNF days covered at 100% and she was into her copay
days. The son would not agree to her going back to [facility] again.
Discussed short term rehab again and provided her current functional mobility; he will have to consider SNF vs home with VN. He is not sure if he would agree to [facility] again if she were to go home, as they did not have a wound care nurse.
His feels he will probably agree to SNF again for rehab, as there is no bathroom on the first floor and she could not manage the stairs to 2nd floor bedrrom. Discussed some local SNFs and provided ratings.
Message to Dr Galarza requesting new PT/OT orders.
Plan follow up with son re; SNF preferences and make referrals.
--- NOTE | 2024-01-29 15:47 | W.PN.HOSP.TC ---
Addendum entered and electronically signed by Louis Caputo MD 01/29/24 16:41:
seen and examined. agree with resident note.
will plan for OR debridement with Pod, hold atb until able to get bx cx inorder to maximize culture yeild.
vascular considering angio
Original Note:
Today's Communication/Plan
-
A CT angiogram of the left lower extremity
Hold off on antibiotics
Podiatry is on board for debridement and bone biopsy scheduled for today
Assessment / Plan
Assessment / Plan
A/P:
# Possible Acute Respiratory Distress due to Anaphylaxis/type 1 allergic reaction to Zosyn
s/p Epi, IV Benadryl
s/p BiPAP, now on RA
# Left Heel DM Wound, Chronic L heel wound that is recently worse per patient.
# BL PAD, L > R
L foot X-ray noted diffuse soft tissue swelling about the foot. Large posterior heel soft tissue wound. No convincing osteomyelitis.
However, MRI L foot is suggestive of osteomyelitis of posterior calcaneus
Podiatry on board with plan for debridement - scheduled for 01/29/24
venous US neg for DVT
arterial US noted Left toe brachial index measures 0.37, compared to 0.59 on prior. Right toe brachial index measures 0.37, compared to 0.34 on prior study.
vascular consulted for worsening LLE PAD
Continue current med regimen including BID ASA, statin, etc.
Off further abx for now
ID on board / Wound care on board
# Incidental finding of left groin mass noted from US, with internal vascularity.
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
Pt informed of finding
- Ct angiogram of the left lower groin ordered 01/29/24
# Increased in size of Left adrenal gland mass (incidental finding) from CT AP.
Pt informed of finding.
Recc Outpt work up
# Acute on Chronic HFpEF, improved
# Pulmonary Hypertension
# Valvular Heart Disease
Continue IV Lasix for now with 80mg BID dosing. Follow I/Os, daily weights, etc.
Echo done last in November with normal LVEF, mitral / tricuspid regurg.
# Paroxysmal Atrial Fibrillation
Continue OP regimen of Dig, verapamil and metoprolol.
# Asthma / COPD, stable
Off BiPAP
Patient on no maintenance medications. Albuterol PRN.
# DM-II, Stable.
Continue basal : bolus insulin regimen. 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
Hold PO metformin acutely.
Follow glucose and cover with SSI as needed.
A1C 8.0%.
# Hypothyroidism, Stable.
Continue current T4 supplementation.
# s/p L Reverse Shoulder Arthroplasty, had surgery on 12/12/23.
Steri strips still in place.
PT / OT recc SNF
# Morbid Obesity due to excess calories, BMI 44
Affects all aspects of care.
Encourage healthy diet and increased activity as able with goal of weight loss.
DVT Prophylaxis: Lovenox
Code Status: Full
Dispo: eventual SNF
Anticipated Discharge: 24 - 48 hours
Subjective/Interval History
-
Date of Service: January 29, 2024
Patient has no acute complaints today
Objective Data
-
Labs:
Laboratory Results
01/29/24
05:45
WBC 6.6
Hgb 10.2 L
Hct 31.9 L
Plt Count 292
Sodium 143
Potassium 4.3
Chloride 106
Carbon Dioxide 30
BUN 22 H
Creatinine 0.7
Glucose 111 H
Calcium 8.7
Vital Signs:
Vital Signs
Temp Pulse Resp BP Pulse Ox
98.7 F 73 23 118/59 94
01/29/24 15:10 01/29/24 15:30 01/29/24 15:30 01/29/24 15:30 01/29/24 15:30
I&O
01/28/24 01/29/24 01/30/24
06:59 06:59 06:59
Intake Total 970 / 970 1240 / 1240
Output Total 400 / 400 1600 / 1600 1050 / 1050
Balance 570 / 570 -360 / -360 -1050 / -1050
Review of Systems
-
History Source: Patient
All other systems: Reviewed and negative
Physical Exam
-
General: Well Developed, Well Nourished, No Apparent Distress, Appears Chronically Ill and Morbidly Obese
HEENT: Normocephalic and Atraumatic
Respiratory: Clear to Auscultation and Wheezes; Negative Accessory Resp Muscle Use ( )
Cardiac: S1/S2
GI: Soft, Nontender and Nondistended
Musculoskeletal: No Clubbing, No Cyanosis, Edema, Right Lower Extrem and Edema, Left Lower Extrem
Skin: Warm and Dry
Neuro: Awake, Alert, Oriented and AO x 3
Psych: Calm and Intact Judgement/Insight
Data Reviewed
-
Medical Tests (Nuc Med, Echo etc): Image personally visualized and interpreted
Labs: Labs Reviewed by me and Discussed with Physician
[2024-01-29 16:47] LABS: Glucose - Point of Care 99 mg/dl (70-99)
--- NOTE | 2024-01-29 16:53 | PTCARENOTE ---
Pt received from the OR. Received report from [employer]. Pt is comfortable and rates pain a 1 out of 10. Left foot is elevated with two pillows. Dressing is clean, dry, and intact. Pt is able to wiggle toes. Pulse is palpable but weak.
[2024-01-29] MEDS: LOVENOX 40 MG SC (17:25)
[2024-01-29] MEDS: LANTUS 0.15 UNITS SC (18:36)
[2024-01-29] MEDS: COLACE 100 MG PO (20:12)
[2024-01-29] MEDS: SENOKOT 17.2 MG PO (20:12)
[2024-01-29] MEDS: ZOLOFT 50 MG PO (20:12)
[2024-01-29] MEDS: LIPITOR 40 MG PO (20:13)
--- NOTE | 2024-01-29 20:40 | PTCARENOTE ---
Received pt from maricruz G[facility]. Pt is AAOx3. Afib w/ PVCs on the monitor. On RA O2 sat 95%, lungs clear. Pw in place for incont. B/l heel dressing c/d/i, left foot pedal obtained by doppler. Pt is laying in bed with call duque in reach.
[2024-01-29 21:12] LABS: Glucose - Point of Care 265 mg/dl (70-99)
[2024-01-30] VITALS (13 sets, daily range): BP systolic 96–123; BP diastolic 53–67; PULSE 57; BMI 43.9
[2024-01-30] MEDS: SYNTHROID 125 MCG PO (05:32)
[2024-01-30] MEDS: TYLENOL 650 MG PO (05:37)
[2024-01-30 05:56] LABS: % Basophils 1.1 % (0-2); % Eosinophils 6.3 % (0-6); % Immature Granulocytes 0.7 % (0-0.5); % Monocytes 7.7 % (1.7-9.3); % Neutrophils 75.2 % (42.2-75.2); Absolute Basophils 0.1 10^3/uL (0-0.2); Absolute Eosinophils 0.4 10^3/uL (0-0.7); Absolute Lymphocytes 0.5 10^3/uL (1.2-3.4); Absolute Monocytes 0.4 10^3/uL (0.1-0.6); Absolute Neutrophils 4.2 10^3/uL (1.4-6.5); Hematocrit 31.6 % (37.0-47.0); Hemoglobin 9.8 g/dL (12.0-16.0); Mean Corpuscular Hgb 26.1 pg (27.0-31.0); Mean Corpuscular Volume 84.3 fL (81.0-99.0); Mean Platelet Volume 9.7 fL (7.4-10.4); Nucleated Red Blood Cells % 0 %; Platelet Count 291 10^3/uL (130-400); Red Blood Cell Count 3.75 10^6/uL (4.20-5.40); Red Cell Dist. Width 15.9 % (11.5-14.5); White Blood Cell Count 5.6 10^3/uL (4.8-10.8)
[2024-01-30 06:15] LABS: ALT (SGPT) < 10 U/L (0-35); AST (SGOT) 15 U/L (14-36); Alkaline Phosphatase 90 U/L (38-126); Blood Urea Nitrogen 22 mg/dl (7-17); Calcium 8.6 mg/dl (8.4-10.2); Carbon Dioxide 29 mmol/L (22-30); Chloride 106 mmol/L (98-107); Estimated Creatinine Clearance 73 ml/min; Glucose 161 mg/dl (70-99); Potassium 4.3 mmol/L (3.5-5.1); Sodium 142 mmol/L (135-145); Total Bilirubin 0.5 mg/dl (0.2-1.3); Total Protein 5.7 g/dl (6.3-8.2); eGFR > 60.00
[2024-01-30 07:54] LABS: Glucose - Point of Care 173 mg/dl (70-99)
[2024-01-30] MEDS: NOVOLOG FLEXPEN-MODERATE RESISTANCE 1 UNITS SC (08:10)
[2024-01-30] MEDS: ASPIR LOW (ENTERIC COATED) 81 MG PO ×2 (08:11→20:20)
[2024-01-30] MEDS: PROTONIX 40 MG PO (08:11)
[2024-01-30] MEDS: CALAN EXTENDED RELEASE 240 MG PO (08:11)
[2024-01-30] MEDS: NEURONTIN 300 MG PO ×2 (08:11→20:20)
[2024-01-30] MEDS: LASIX 80 MG IV ×2 (08:12→16:41)
[2024-01-30] MEDS: KCL 20 MEQ PO ×2 (08:12→20:20)
[2024-01-30] MEDS: TOPROL XL 25 MG PO (08:12)
[2024-01-30] MEDS: SINGULAIR 10 MG PO (08:12)
[2024-01-30] MEDS: DESENEX/MITRAZOL/ZEASORB 1 APPLIC TOPICAL ×2 (08:13→21:55)
[2024-01-30] MEDS: COLACE 100 MG PO (08:17)
[2024-01-30] MEDS: SENOKOT 17.2 MG PO (08:17)
[2024-01-30 12:51] LABS: Glucose - Point of Care 200 mg/dl (70-99)
--- NOTE | 2024-01-30 13:08 | W.PN.ID1 ---
Date of Service
Date of Service: January 30, 2024
Today's Communication
start meropenem and linezolid
Assessment / Plan
(L) heel Wound - acute on chronic
DM foot infection
Osteomyelitis of the (L) heel
DM2 recently uncontrolled
Long QTc
Allergy to Penicillin - anaphylaxis
Reported allergies to Levaquin (hives), sulfa (hives), vancomycin red man
Class III obesity
- wound culture E coli, enterococcus, diptheroid
- started meropenem
- await OR culture and pathology
Anaphylaxis 01/24 - penicillin
- rediscussed with patient today as starting merpenem
- allergy follow up outpatient for anaphylaxis 01/24 and IgE remarkably improved but remains 2x ULN; other immunoglobulins normal
����������������������������������������������������������
Chief Complaint
-: Other (Left heel osteomyelitis)
Subjective / Review of Systems
afebrile
dressings clean, dry, intact
s/p debridement
no complaints
Vital Signs / Physical Exam
Vital Signs
Vital Signs
Temp Pulse Resp BP Pulse Ox
98.0 F 79 15 111/67 95
01/30/24 07:20 01/30/24 08:12 01/30/24 08:06 01/30/24 08:12 01/30/24 08:37
Physical Exam
Constitutional: No Acute Distress
Cardiovascular: Regular Rate and S1/S2; Negative Murmur or Rub
Pulmonary: Clear and Symmetric; Negative Wheezes or Rales
Gastrointestinal: Soft, Non Tender, Non Distended and Normal Bowel Sounds
Skin: Warm and Dry; Negative Rash or Jaundice
Wound: Other (dressings clean, dry, intact, deferred take down)
Objective Data
Lab Data
Lab Results
01/30/24 05:29
01/30/24 05:29
Estimated Creat Clear 73 ml/min 01/30/24 05:29
Total Bilirubin 0.5 mg/dl (0.2-1.3) 01/30/24 05:29
AST 15 U/L (14-36) 01/30/24 05:29
ALT < 10 U/L (0-35) 01/30/24 05:29
Alkaline Phosphatase 90 U/L (38-126) 01/30/24 05:29
Most recent labs reviewed.
Micro Results:
01/29/24 14:50 Tissue Culture - Preliminary
Foot - Left Gram negative bacilli
Gram Stain - Preliminary
01/29/24 14:50 Wound Culture - Preliminary
Foot - Left Gram negative bacilli
Gram Stain - Preliminary
01/29/24 14:50 Anaerobic Culture - Preliminary
Foot - Left Culture pending. Anaerobic cultures are examined after 3
days incubation. Additional information to follow.
01/29/24 14:50 Anaerobic Culture - Preliminary
Foot - Left Culture pending. Anaerobic cultures are examined after 3
days incubation. Additional information to follow.
01/26/24 12:05 Wound Culture - Final
Foot - Left Escherichia coli
Enterococcus faecalis
Diptheroids
Gram Stain - Final
01/26/24 03:47 MRSA Screen - Final
Nose No Methicillin Resistant Staphylococcus aureus isolated.
Imaging:
01/27/2024 MRI left lower extremity: A soft tissue defect involving the posterior heel extends to the posterior bony margin of the calcaneus. Enhancing signal noted in the posterior calcaneus highly suggestive of osteomyelitis.
[2024-01-30] MEDS: NOVOLOG FLEXPEN-MODERATE RESISTANCE 3 UNITS SC ×2 (13:54→16:50)
[2024-01-30] MEDS: SANTYL OINTMENT TOPICAL (13:54)
[2024-01-30] MEDS: LANOXIN PO (13:55)
[2024-01-30] MEDS: MERREM 1000 MG IV ×2 (13:56→20:25)
[2024-01-30] MEDS: STERILE WATER FOR INJECTION 20 ML IV ×2 (13:56→20:25)
--- NOTE | 2024-01-30 14:35 | W.PN.UPDATE ---
Update Note
Progress Note Update
seen and examined. agree with resident note.
s/p OR debridement with Pod, hold atb until able to get bx cx inorder to maximize culture yeild.
cultures growing polymicrobial bacteria
-started on lisandra per ID
CT angio completed, follow up results with Vascular surgery
[2024-01-30 16:58] LABS: Glucose - Point of Care 209 mg/dl (70-99)
--- NOTE | 2024-01-30 17:45 | W.PN.HOSP.TC ---
Addendum entered and electronically signed by Louis Caputo MD 01/31/24 12:05:
seen and examined. agree with resident note.
s/p OR debridement with Pod, hold atb until able to get bx cx inorder to maximize culture yeild.
cultures growing polymicrobial bacteria
-started on lisandra per ID
CT angio completed, follow up results with Vascular surgery
Original Note:
Today's Communication/Plan
-
Follow-up with infectious disease
Bone biopsy results are pending
Assessment / Plan
Assessment / Plan
A/P:
# Possible Acute Respiratory Distress due to Anaphylaxis/type 1 allergic reaction to Zosyn
s/p Epi, IV Benadryl
s/p BiPAP, now on RA
# Left Heel DM Wound, Chronic L heel wound that is recently worse per patient.
# BL PAD, L > R
L foot X-ray noted diffuse soft tissue swelling about the foot. Large posterior heel soft tissue wound.
However, MRI L foot is suggestive of osteomyelitis of posterior calcaneus
debridement - completed on 01/29/24
Bone Biopsy performed on 01/29/24 and results are pending
venous US neg for DVT
arterial US noted Left toe brachial index measures 0.37, compared to 0.59 on prior. Right toe brachial index measures 0.37, compared to 0.34 on prior study.
vascular consulted for worsening LLE PAD
Continue current med regimen including BID ASA, statin, etc.
ID started patient on meropenem 1000 mg IV q8H and Linezolid 600 PO BID.
ID on board / Wound care on board
# Incidental finding of left groin mass noted from US, with internal vascularity.
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
Pt informed of finding
- Ct angiogram of the left lower groin performed on 01/29- showed The previously seen fluid collection in the left pelvis, which is incompletely imaged on the current exam, is stable from 2020.
There is moderate diffuse increased density to the subcutaneous tissues of the imaged left flank, hip and proximal thigh consistent with edema. There is moderate dermal thickening laterally in the same soft tissues.
The left groin venous vascular malformation shows an adjacent tubular structure along the inferior aspect of the malformation probably an enlarged lymph node. This measures approximately 6.4 x 1.7 cm., On the 2019 study, it measured 1.6 x 6.0 cm..
On today's exam, the malformation in left groin measures 9.0 cm from superior to inferior by 8.1 cm from right to left by 5.5 cm from anterior to posterior. Again the mass appears to communicate with the left common femoral vein as well as the left
greater saphenous vein at their junction.
There is moderate atherosclerotic vascular disease.
# Increased in size of Left adrenal gland mass (incidental finding) from CT AP.
Pt informed of finding.
Recc Outpt work up
# Acute on Chronic HFpEF, improved
# Pulmonary Hypertension
# Valvular Heart Disease
Continue IV Lasix for now with 80mg BID dosing. Follow I/Os, daily weights, etc.
Echo done last in November with normal LVEF, mitral / tricuspid regurg.
# Paroxysmal Atrial Fibrillation
Continue OP regimen of Dig, verapamil and metoprolol.
# Asthma / COPD, stable
Off BiPAP
Patient on no maintenance medications. Albuterol PRN.
# DM-II, Stable.
Continue basal : bolus insulin regimen. Adjust Lantus to 15 units HS (SOCIAL SCIENCE INSTRUCTOR 28 units HS) base off morning accucheck
Hold PO metformin acutely.
Follow glucose and cover with SSI as needed.
A1C 8.0%.
# Hypothyroidism, Stable.
Continue current T4 supplementation.
# s/p L Reverse Shoulder Arthroplasty, had surgery on 12/12/23.
Steri strips still in place.
PT / OT recc SNF
# Morbid Obesity due to excess calories, BMI 44
Affects all aspects of care.
Encourage healthy diet and increased activity as able with goal of weight loss.
DVT Prophylaxis: Lovenox
Code Status: Full
Dispo: eventual SNF
Anticipated Discharge: 24 - 48 hours
Subjective/Interval History
-
Date of Service: January 30, 2024
Patient has no acute complaints today.
Objective Data
-
Labs:
Laboratory Results
01/30/24
05:29
WBC 5.6
Hgb 9.8 L
Hct 31.6 L
Plt Count 291
Sodium 142
Potassium 4.3
Chloride 106
Carbon Dioxide 29
BUN 22 H
Creatinine 0.8
Glucose 161 H
Calcium 8.6
Total Bilirubin 0.5
AST 15
ALT < 10
Alkaline Phosphatase 90
Vital Signs:
Vital Signs
Temp Pulse Resp BP Pulse Ox
97.8 F 73 21 104/55 95
01/30/24 15:25 01/30/24 16:42 01/30/24 16:42 01/30/24 16:42 01/30/24 08:37
I&O
01/29/24 01/30/24 01/31/24
06:59 06:59 06:59
Intake Total 1240 / 1240 410 / 410 360 / 360
Output Total 1600 / 1600 1800 / 1800 400 / 400
Balance -360 / -360 -1390 / -1390 -40 / -40
Review of Systems
-
History Source: Patient
All other systems: Reviewed and negative
Physical Exam
-
General: Well Developed, Well Nourished, No Apparent Distress and Comfortable
HEENT: Normocephalic and Atraumatic
Respiratory: Clear to Auscultation and Wheezes; Negative Accessory Resp Muscle Use
Cardiac: S1/S2
GI: Soft, Nontender and Nondistended
Musculoskeletal: Edema, Left Upper Extrem and Edema, Left Lower Extrem
Skin: Warm and Dry
Neuro: Awake, Alert, Oriented and AO x 3
Psych: Calm
Data Reviewed
-
Medical Tests (Nuc Med, Echo etc): Image personally visualized and interpreted
Labs: Labs Reviewed by me and Discussed with Physician
[2024-01-30] MEDS: LANTUS 0.15 UNITS SC (18:37)
[2024-01-30] MEDS: LOVENOX 40 MG SC (18:37)
--- NOTE | 2024-01-30 18:57 | W.PN.POD ---
Today's Communication
Today's Communication
Daily Santyl to LT heel with dressing changes
Assessment / Plan
-
A/P : S/P LT heel debridement with bone biopsy POD # 1
B/L heel eschars probably pressure related with LT side worse with deroofed eschar and serous drainage
Rt heel dry intact eschar
Diabetic small vessel disease
Chronic b/l lower leg lymphedema
Obesity
Plan : Changed surgical dressings LT side, will start Santyl daily once with dressing changes
PEnding bone cultures
Abx per ID
possible wound VAC to LT side.
strict offloading heels in bed
heel relief shoe out of bed
Subjective
Chief Complaint
B/L heel pressure injury / eschar
Subjective
Pt seen at bedside, doing ok, no fever, chills. Denies nay acute distress, no chest pain, no SOB.
Objective
Temp Pulse Resp BP Pulse Ox
97.8 F 88 24 110/63 95
01/30/24 15:25 01/30/24 18:00 01/30/24 18:00 01/30/24 18:00 01/30/24 08:37
01/30/24 05:29
01/30/24 05:29
Vital Signs and Lab results were reviewed.
Diminished pedal pulses
LT heel surgical site clean, dry, no purulence, no edema to Rt foot presence of islands of some necrotic wound edges, no active purulence noted. center of the ulcer with small area of palpable bone noted. No undermining noted.
Rt heel eschar is clean, dry, intact, no drainage, no edema, no foul odor noted. pink, granular rim around the eschar noted
[2024-01-30] MEDS: ZOLOFT 50 MG PO (20:20)
[2024-01-30] MEDS: LIPITOR 40 MG PO (20:20)
[2024-01-30] MEDS: MORPHINE SULFATE 2 MG IV (20:24)
[2024-01-30] MEDS: COLACE PO (20:43)
[2024-01-30] MEDS: SENOKOT PO (20:43)
[2024-01-30] MEDS: ZYVOX 600 MG PO (21:55)
--- NOTE | 2024-01-30 22:17 | PTCARENOTE ---
Pt with a large incont BM, pw was removed at that time. Pt now requesting for the pw to be placed again. Pt educated about the risk of wearing a pw and being incont of stool, pt verbalizes understanding.
[2024-01-30 22:48] LABS: Glucose - Point of Care 225 mg/dl (70-99)
[2024-01-30] MEDS: ROXICODONE 10 MG PO (23:51)
[2024-01-31] VITALS (15 sets, daily range): BP systolic 66–146; BP diastolic 41–94; BMI 43.7
[2024-01-31] MEDS: STERILE WATER FOR INJECTION 20 ML IV ×3 (04:40→19:36)
[2024-01-31] MEDS: MERREM 1000 MG IV ×3 (04:40→19:34)
[2024-01-31] MEDS: SYNTHROID 125 MCG PO (04:47)
--- NOTE | 2024-01-31 07:50 | WOUNDNOTE ---
WOC RN note: Confirmed with Dr. Galarza, no L heel vac to start at this point d/t some necrotic L heel wound edges. Santyl was added to L heel wound care. Care plan and discharge instructions updated. Will follow as needed.
[2024-01-31 08:11] LABS: Glucose - Point of Care 128 mg/dl (70-99)
--- NOTE | 2024-01-31 08:30 | PTCARENOTE ---
Patient received from table runner. Patient resting comfortably in bed. AAO, VSS. No events noted overnight. No complaints of pain at this time. Patient had wound debridement yesterday, wound care to be done as followed in the orders. Pure wick
still in place, hung urine. Patient refused bowel meds this AM due to loose stools overnight. Call duque in reach.
[2024-01-31] MEDS: NOVOLOG FLEXPEN-MODERATE RESISTANCE SC (08:43)
[2024-01-31] MEDS: KCL 20 MEQ PO ×2 (08:44→19:30)
[2024-01-31] MEDS: TOPROL XL 25 MG PO (08:44)
[2024-01-31] MEDS: SINGULAIR 10 MG PO (08:44)
[2024-01-31] MEDS: SANTYL OINTMENT 1 APPLIC TOPICAL (08:44)
[2024-01-31] MEDS: ASPIR LOW (ENTERIC COATED) 81 MG PO ×2 (08:45→19:31)
[2024-01-31] MEDS: SENOKOT PO (08:45)
[2024-01-31] MEDS: NEURONTIN 300 MG PO ×2 (08:45→19:30)
[2024-01-31] MEDS: PROTONIX 40 MG PO (08:45)
[2024-01-31] MEDS: DESENEX/MITRAZOL/ZEASORB 1 APPLIC TOPICAL ×2 (08:46→19:35)
[2024-01-31] MEDS: LASIX 80 MG IV (08:46)
[2024-01-31] MEDS: CALAN EXTENDED RELEASE 240 MG PO (08:46)
[2024-01-31] MEDS: ZYVOX 600 MG PO ×2 (08:46→19:32)
[2024-01-31] MEDS: COLACE PO (08:47)
[2024-01-31 09:38] LABS: % Basophils 1.3 % (0-2); % Immature Granulocytes 0.8 % (0-0.5); % Lymphocytes 13.4 % (20.5-51.1); % Monocytes 7.3 % (1.7-9.3); % Neutrophils 68.2 % (42.2-75.2); ALT (SGPT) < 10 U/L (0-35); AST (SGOT) 18 U/L (14-36); Absolute Basophils 0.1 10^3/uL (0-0.2); Absolute Eosinophils 0.5 10^3/uL (0-0.7); Absolute Lymphocytes 0.7 10^3/uL (1.2-3.4); Absolute Monocytes 0.4 10^3/uL (0.1-0.6); Absolute Neutrophils 3.6 10^3/uL (1.4-6.5); Albumin 3.3 g/dl (3.5-5.0); Alkaline Phosphatase 96 U/L (38-126); Blood Urea Nitrogen 20 mg/dl (7-17); Carbon Dioxide 31 mmol/L (22-30); Chloride 105 mmol/L (98-107); Estimated Creatinine Clearance 73 ml/min; Glucose 103 mg/dl (70-99); Hematocrit 33.3 % (37.0-47.0); Hemoglobin 10.4 g/dL (12.0-16.0); Mean Corp Hgb Conc. 31.2 g/dL (33.0-37.0); Mean Corpuscular Hgb 25.9 pg (27.0-31.0); Mean Corpuscular Volume 82.8 fL (81.0-99.0); Mean Platelet Volume 9.2 fL (7.4-10.4); Nucleated Red Blood Cells % 0 %; Platelet Count 292 10^3/uL (130-400); Potassium 4.1 mmol/L (3.5-5.1); Red Blood Cell Count 4.02 10^6/uL (4.20-5.40); Red Cell Dist. Width 16.2 % (11.5-14.5); Sodium 145 mmol/L (135-145); Total Bilirubin 0.5 mg/dl (0.2-1.3); Total Protein 6.1 g/dl (6.3-8.2); White Blood Cell Count 5.2 10^3/uL (4.8-10.8); eGFR > 60.00
--- NOTE | 2024-01-31 09:53 | W.PN.ID1 ---
Date of Service
Date of Service: January 31, 2024
Today's Communication
plan 6 weeks of IV meropenem and 6 weeks of oral linezolid - through 03/11/24
Assessment / Plan
(L) heel Wound - acute on chronic
DM foot infection
Osteomyelitis of the (L) heel
DM2 recently uncontrolled
Long QTc
Allergy to Penicillin - anaphylaxis
Reported allergies to Levaquin (hives), sulfa (hives), vancomycin red man
Class III obesity
- 01/25: superficial wound culture E coli, enterococcus, diptheroid
- 01/28 OR cultures: pseudomonas, e coli x2; there are moderate gpcs as well on gram stain
- started meropenem and oral linezolid
- path pending
- plan 6 weeks of IV meropenem and 6 weeks of oral linezolid - through 03/11/24
Anaphylaxis 01/24 - penicillin
- allergy follow up outpatient for anaphylaxis 01/24 and IgE remarkably improved but remains 2x ULN; other immunoglobulins normal
����������������������������������������������������������
Chief Complaint
-: Other (Left heel osteomyelitis)
Subjective / Review of Systems
afebrile
bp stable
no complaints
shes curious if she will need wound vac
Vital Signs / Physical Exam
Vital Signs
Vital Signs
Temp Pulse Resp BP Pulse Ox
97.7 F 81 18 104/62 93
01/31/24 04:45 01/31/24 08:46 01/31/24 06:00 01/31/24 08:46 01/31/24 04:45
Physical Exam
Constitutional: No Acute Distress, Chronically Ill and Obese
Cardiovascular: Regular Rate and S1/S2; Negative Murmur or Rub
Pulmonary: Clear and Symmetric; Negative Wheezes or Rales
Gastrointestinal: Soft, Non Tender, Non Distended and Normal Bowel Sounds
Skin: Warm and Dry; Negative Rash or Jaundice
Wound: Other (dressing take down deferred)
Objective Data
Lab Data
Lab Results
01/31/24 09:18
01/31/24 09:18
Estimated Creat Clear 73 ml/min 01/31/24 09:18
Total Bilirubin 0.5 mg/dl (0.2-1.3) 01/31/24 09:18
AST 18 U/L (14-36) 01/31/24 09:18
ALT < 10 U/L (0-35) 01/31/24 09:18
Alkaline Phosphatase 96 U/L (38-126) 01/31/24 09:18
Most recent labs reviewed as above in addition
no L shift
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
01/28 path pending
Micro Results:
01/29/24 14:50 Wound Culture - Preliminary
Foot - Left Pseudomonas aeruginosa
Escherichia coli
Gram Stain - Preliminary
01/29/24 14:50 Anaerobic Culture - Preliminary
Foot - Left Culture pending. Anaerobic cultures are examined after 3
days incubation. Additional information to follow.
01/29/24 14:50 Anaerobic Culture - Preliminary
Foot - Left Culture pending. Anaerobic cultures are examined after 3
days incubation. Additional information to follow.
01/29/24 14:50 Tissue Culture - Preliminary
Foot - Left Pseudomonas aeruginosa
Escherichia coli
Gram Stain - Preliminary
01/26/24 12:05 Wound Culture - Final
Foot - Left Escherichia coli
Enterococcus faecalis
Diptheroids
Gram Stain - Final
01/26/24 03:47 MRSA Screen - Final
Nose No Methicillin Resistant Staphylococcus aureus isolated.
Imaging:
01/27/2024 MRI left lower extremity: A soft tissue defect involving the posterior heel extends to the posterior bony margin of the calcaneus. Enhancing signal noted in the posterior calcaneus highly suggestive of osteomyelitis.
--- NOTE | 2024-01-31 12:40 | WOUNDNOTE ---
L HEEL (s/p OR debridement on 01/29/24)
--- NOTE | 2024-01-31 12:40 | WOUNDNOTE ---
WOC RN note: Changed patient's heel dressings as ordered. Patient s/p OR R heel debridement and biopsy. Wound pale pink to bone with scattered yellow fibrin and brown/black necrotic tissue along wound edges distally. Bilateral knee high Erik wraps
applied as ordered. Heels off bed with pillows. She is taking a break from [employer]ue lite boots. Patient is on a [facility] air bed. Will follow as needed.
[2024-01-31] MEDS: LANOXIN 125 MCG PO (12:52)
--- NOTE | 2024-01-31 12:55 | W.PN.VS ---
Addendum entered and electronically signed by Obed Joy MD 02/01/24 17:26:
Correction to below - should read 'I reviewed my arteriogram ....single-vessel runoff with no distal additional target on the foot TO ADEQUATELY PERFUSE THE HEEL.'
Addendum entered and electronically signed by Obed Joy MD 01/31/24 13:40:
Seen and examined with SAVANA March. Agree with findings as noted below. Known to me status post left lower extremity arteriogram. She noted that the left heel ulcer was making progress but subsequently she slipped on a stair and the heel ulcer
became larger. Trouble healing now. Right side she is not clear why she was in rehabilitation for some time and may have developed pressure related decubitus in the right heel. Reviewed noninvasive studies. TBI's diminished bilaterally. I
reviewed my arteriogram with left lower extremity from prior. She has a single-vessel runoff with no distal additional target on the foot. Therefore likely no further revascularization options. I suspect the right side is similar. Regardless
would pursue angiography for completion sake given concern for nonhealing bilateral heel ulcers which present as limb threatening problems. Therefore discussed with her arteriogram, risk/benefit/alternatives. She understands all wishes to proceed.
Plan right lower extremity arteriogram, possible angioplasty stent (possible left lower extremity diagnostic arteriogram) tomorrow. N.p.o. after midnight.
In addition I discussed with her this finding of a left groin venous malformation. Slightly atypical and odd appearing. It almost appears to be a mass, and there is a fullness in the groin. I am not sure it is all venous related. Would obtain an
MRI to better evaluate. In addition would recommend anticoagulation in the event that this was a large venous malformation, would not want to thrombotic complications.
Original Note:
Today's Communication / Plan
-
Seen and assessed with Dr. Joy
Assessment/Plan
-
BL heal ulcers
- Status post debridement with podiatry
- Add on to OR schedule tomorrow for arteriogram
- N.p.o. after midnight
- cont to offload, wound care per podiatry
Subjective Data
-
Date of Service: January 31, 2024
Patient seen bedside today with Dr. Joy. Patient offers no complaints at this time. Podiatry's dressings are clean dry and intact. No events overnight
Objective Data
-
Vital Signs
Temp Pulse Resp BP Pulse Ox
97.9 F 81 18 104/62 95
01/31/24 07:20 01/31/24 08:46 01/31/24 06:00 01/31/24 08:46 01/31/24 12:36
Intake and Output
01/30/24 01/31/24 02/01/24
06:59 06:59 06:59
Intake Total 410 / 410 770 / 770
Output Total 1800 / 1800 1900 / 1900
Balance -1390 / -1390 -1130 / -1130
Intake:
Oral fluids 410 / 410 770 / 770
Output:
Urine, Voided 1800 / 1800 1900 / 1900
Other:
How many times incontinent 1
MODERATE amount urine
Lab Results
01/31/24 09:18
01/31/24 09:18
Calcium 9.0 mg/dl (8.4-10.2) 01/31/24 09:18
Magnesium 2.1 mg/dl (1.6-2.3) 01/27/24 04:29
Total Bilirubin 0.5 mg/dl (0.2-1.3) 01/31/24 09:18
AST 18 U/L (14-36) 01/31/24 09:18
ALT < 10 U/L (0-35) 01/31/24 09:18
Alkaline Phosphatase 96 U/L (38-126) 01/31/24 09:18
Total Protein 6.1 g/dl (6.3-8.2) L 01/31/24 09:18
Albumin 3.3 g/dl (3.5-5.0) L 01/31/24 09:18
Physical Exam
-
AAox3
No tachypnea
No tachycardia
edematous legs bilat (chronic)
heal wounds bilat wrapped status post debridement with podiatry-images and wound care notes
[2024-01-31] MEDS: NOVOLOG FLEXPEN-MODERATE RESISTANCE 1 UNITS SC (12:59)
[2024-01-31 13:06] LABS: Glucose - Point of Care 169 mg/dl (70-99)
--- NOTE | 2024-01-31 14:27 | CM ---
Patient with recent Hx s/p L Reverse Shoulder Arthroplasty with Dx type 1 allergic reaction to Zosyn, L heel wound s/p Left heel debridement with LT heel bone biopsy, HF. Room air. Receiving IV Lasix, IV meropenum. PICC line pending. Seen by
wound care nurse. BUD LAZCANO. PT & OT; requires assist of 2, recommend skilled rehab.
Script received from Dr Kearns for IV meropenum 1gm IV Q8h for 6 wks, end date 03/11.
Met with patient to discuss need for 6 wks of IV Abx; patient is adamant that she will not go to SNF again due to bad recent experience at [facility]. She states she feels capable of doing her own IV Abx administration. Discussed that
[facility] nurse and [facility] nurse will provide teaching and support for home IV infusion and she agrees with that plan. She would like [facility] for SN/PT/OT/[facility]. The patient thinks her mobility will continue to improve and she will be able
to transfer/ambulate independently at home. She says she doesn't need to worry about stairs as she has a chair lift. She declined offer for w/c or commode. Patient feels that she will have adequate family support from her grandson who will be
home 26/12 to assist her, as well as help from her son Amanuel. She agrees with CM re-contacting her son for d/c planning.
Phone call to Amanuel, patient's son; left message requesting callback.
Spoke with nurse Katt [facility]; referral sent via [facility].
Spoke with nurse Riky Bailey; she confirmed that their nurse will be able to do the home IV infusion, and they can provide PT/OT/[facility].
Plan home with [facility] for home IV meropenum, with Lenka Lan, with family.
--- NOTE | 2024-01-31 16:18 | W.PN.UPDATE ---
Update Note
Progress Note Update
seen and examined. agree with resident note.
s/p OR debridement with Pod, hold atb until able to get bx cx inorder to maximize culture yeild.
cultures growing polymicrobial bacteria
-started on lisandra per ID
-poor wound healing per vascular
-for arteriogram tomorrow with vasc
--- NOTE | 2024-01-31 16:41 | W.PN.HOSP.TC ---
Addendum entered and electronically signed by Louis Caputo MD 02/01/24 14:14:
seen and examined. agree with resident note.
s/p OR debridement with Pod, hold atb until able to get bx cx inorder to maximize culture yeild.
cultures growing polymicrobial bacteria
-started on lisandra per ID
-poor wound healing per vascular
-for arteriogram tomorrow with vasc
Original Note:
Today's Communication/Plan
-
Continue patient on same medication that infectious disease prescribed
Arteriogram tomorrow with vascular
Continue her on IV Lasix
Assessment / Plan
Assessment / Plan
A/P:
# Possible Acute Respiratory Distress due to Anaphylaxis/type 1 allergic reaction to Zosyn
s/p Epi, IV Benadryl
s/p BiPAP, now on RA
# Left Heel DM Wound, Chronic L heel wound that is recently worse per patient.
# BL PAD, L > R
L foot X-ray noted diffuse soft tissue swelling about the foot. Large posterior heel soft tissue wound.
However, MRI L foot is suggestive of osteomyelitis of posterior calcaneus
debridement - completed on 01/29/24
Bone Biopsy performed on 01/29/24 and results are pending
venous US neg for DVT
arterial US noted Left toe brachial index measures 0.37, compared to 0.59 on prior. Right toe brachial index measures 0.37, compared to 0.34 on prior study.
vascular consulted for worsening LLE PAD
Continue current med regimen including BID ASA, statin, etc.
ID started patient on meropenem 1000 mg IV q8H and Linezolid 600 PO BID through 03/11/24
Vascular Surgery consulted (01/30)
- Status post debridement with podiatry
- Add on to OR schedule tomorrow for arteriogram
- N.p.o. after midnight
- cont to offload, wound care per podiatry
Pts HbA1c is 8 and glucose level is 103
Podiatry consulted about placing a potential wound vacuum for the left foot (01/30)
Continue to F/u with ID/ Vascular/podiatry
ID on board / Wound care on board
# Incidental finding of left groin mass noted from US, with internal vascularity.
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
Pt informed of finding
- Ct angiogram of the left lower groin performed on 01/29- showed The previously seen fluid collection in the left pelvis, which is incompletely imaged on the current exam, is stable from 2020.
There is moderate diffuse increased density to the subcutaneous tissues of the imaged left flank, hip and proximal thigh consistent with edema. There is moderate dermal thickening laterally in the same soft tissues.
The left groin venous vascular malformation shows an adjacent tubular structure along the inferior aspect of the malformation probably an enlarged lymph node. This measures approximately 6.4 x 1.7 cm., On the 2019 study, it measured 1.6 x 6.0 cm..
On today's exam, the malformation in left groin measures 9.0 cm from superior to inferior by 8.1 cm from right to left by 5.5 cm from anterior to posterior. Again the mass appears to communicate with the left common femoral vein as well as the left
greater saphenous vein at their junction.
There is moderate atherosclerotic vascular disease.
# Increased in size of Left adrenal gland mass (incidental finding) from CT AP.
Pt informed of finding.
Recc Outpt work up
# Acute on Chronic HFpEF, improved
# Pulmonary Hypertension
# Valvular Heart Disease
Continue IV Lasix for now with 80mg BID dosing. Follow I/Os, daily weights, etc.
Echo done last in November with normal LVEF, mitral / tricuspid regurg.
# Paroxysmal Atrial Fibrillation
Continue OP regimen of Dig, verapamil and metoprolol.
# Asthma / COPD, stable
Off BiPAP
Patient on no maintenance medications. Albuterol PRN.
# DM-II, Stable.
Continue basal : bolus insulin regimen. Adjust Lantus to 15 units HS (ASSOCIATE DIRECTOR REGULATORY AFFAIRS 28 units HS) base off morning accucheck
Hold PO metformin acutely.
Follow glucose and cover with SSI as needed.
A1C 8.0%.
# Hypothyroidism, Stable.
Continue current T4 supplementation.
# s/p L Reverse Shoulder Arthroplasty, had surgery on 12/12/23.
Steri strips still in place.
PT / OT recc SNF
# Morbid Obesity due to excess calories, BMI 44
Affects all aspects of care.
Encourage healthy diet and increased activity as able with goal of weight loss.
DVT Prophylaxis: Lovenox
Code Status: Full
Dispo: eventual SNF
Anticipated Discharge: 24 - 48 hours
Subjective/Interval History
-
Date of Service: January 31, 2024
Patient has no acute complaints
Objective Data
-
Labs:
Laboratory Results
01/31/24
09:18
WBC 5.2
Hgb 10.4 L
Hct 33.3 L
Plt Count 292
Sodium 145
Potassium 4.1
Chloride 105
Carbon Dioxide 31 H
BUN 20 H
Creatinine 0.8
Glucose 103 H
Calcium 9.0
Total Bilirubin 0.5
AST 18
ALT < 10
Alkaline Phosphatase 96
Vital Signs:
Vital Signs
Temp Pulse Resp BP Pulse Ox
97.9 F 67 18 104/62 95
01/31/24 07:20 01/31/24 12:52 01/31/24 06:00 01/31/24 08:46 01/31/24 12:36
I&O
01/30/24 01/31/24 02/01/24
06:59 06:59 06:59
Intake Total 410 / 410 770 / 770
Output Total 1800 / 1800 1900 / 1900 900 / 900
Balance -1390 / -1390 -1130 / -1130 -900 / -900
Review of Systems
-
History Source: Patient
All other systems: Reviewed and negative
Physical Exam
-
General: Well Developed, Well Nourished, No Apparent Distress and Comfortable
HEENT: Normocephalic and Atraumatic
Respiratory: Clear to Auscultation and Wheezes
Cardiac: S1/S2
GI: Soft, Nontender and Nondistended
Skin: Warm and Dry
Neuro: Awake, Alert, Oriented and AO x 3
Psych: Calm
Data Reviewed
-
Labs: Labs Reviewed by me and Discussed with Physician
[2024-01-31] MEDS: LANTUS 0.15 UNITS SC (17:09)
[2024-01-31] MEDS: LOVENOX 40 MG SC (17:09)
[2024-01-31] MEDS: NOVOLOG FLEXPEN-MODERATE RESISTANCE 3 UNITS SC (17:10)
[2024-01-31 17:15] LABS: Glucose - Point of Care 238 mg/dl (70-99)
[2024-01-31] MEDS: LASIX IV (17:15)
[2024-01-31] MEDS: COLACE 100 MG PO (19:31)
[2024-01-31] MEDS: SENOKOT 17.2 MG PO (19:32)
[2024-01-31] MEDS: LIPITOR 40 MG PO (20:26)
[2024-01-31] MEDS: ZOLOFT 50 MG PO (20:26)
[2024-01-31 22:32] LABS: Glucose - Point of Care 223 mg/dl (70-99)
--- NOTE | 2024-01-31 22:33 | VATNOTE ---
POST PICC INSERTION CXR DONE AT 1637. NO RESULT REPORTED AT THIS TIME. CONTACTED RADIOLOGY FOR REPORT AND WAS TOLD IF NOT READ BY 2300 WILL BE READ DURING THE NIGHT BY [employer]. RELAYED THIS INFO TO DAVID. ADIEL TO FOLLOW.
--- NOTE | 2024-01-31 23:20 | PTCARENOTE ---
assumed care of patient, pt is AAOx3- able to make needs known. VSS, leighton wrap to b/l lower legs, taken off for night. dressings to legs intact. off load boots on both feet. pt aware she is NPO at midnight for procedure in AM. care ongoing.
[2024-02-01] VITALS (28 sets, daily range): BP systolic 93–154; BP diastolic 49–130; PULSE 97; O2SAT 99; BMI 44.8
[2024-02-01] MEDS: ROXICODONE 10 MG PO ×2 (02:22→20:28)
[2024-02-01] MEDS: MERREM 1000 MG IV ×3 (04:42→20:00)
[2024-02-01] MEDS: SYNTHROID 125 MCG PO (04:42)
[2024-02-01] MEDS: STERILE WATER FOR INJECTION 20 ML IV ×3 (04:42→20:00)
[2024-02-01 05:10] LABS: % Eosinophils 4.7 % (0-6); % Immature Granulocytes 1.1 % (0-0.5); % Lymphocytes 8.8 % (20.5-51.1); % Monocytes 7.8 % (1.7-9.3); % Neutrophils 76.6 % (42.2-75.2); Absolute Basophils 0.1 10^3/uL (0-0.2); Absolute Eosinophils 0.3 10^3/uL (0-0.7); Absolute Immature Granulocytes 0.1 10^3/uL (0-0.05); Absolute Lymphocytes 0.5 10^3/uL (1.2-3.4); Absolute Monocytes 0.5 10^3/uL (0.1-0.6); Absolute Neutrophils 4.7 10^3/uL (1.4-6.5); Hematocrit 29.4 % (37.0-47.0); Hemoglobin 9.3 g/dL (12.0-16.0); Mean Corp Hgb Conc. 31.6 g/dL (33.0-37.0); Mean Corpuscular Hgb 26.1 pg (27.0-31.0); Mean Corpuscular Volume 82.4 fL (81.0-99.0); Mean Platelet Volume 9.5 fL (7.4-10.4); Nucleated Red Blood Cells % 0 %; Platelet Count 295 10^3/uL (130-400); Red Blood Cell Count 3.57 10^6/uL (4.20-5.40); Red Cell Dist. Width 16.3 % (11.5-14.5); White Blood Cell Count 6.1 10^3/uL (4.8-10.8)
[2024-02-01 05:30] LABS: ALT (SGPT) < 10 U/L (0-35); AST (SGOT) 20 U/L (14-36); Albumin 3.1 g/dl (3.5-5.0); Alkaline Phosphatase 86 U/L (38-126); Blood Urea Nitrogen 20 mg/dl (7-17); Calcium 8.9 mg/dl (8.4-10.2); Carbon Dioxide 27 mmol/L (22-30); Chloride 106 mmol/L (98-107); Estimated Creatinine Clearance 85 ml/min; Glucose 161 mg/dl (70-99); Potassium 4.7 mmol/L (3.5-5.1); Sodium 140 mmol/L (135-145); Total Bilirubin 0.5 mg/dl (0.2-1.3); Total Protein 5.7 g/dl (6.3-8.2); eGFR > 60.00
[2024-02-01] MEDS: NOVOLOG FLEXPEN-MODERATE RESISTANCE 1 UNITS SC (05:46)
[2024-02-01 05:54] LABS: Glucose - Point of Care 171 mg/dl (70-99)
--- NOTE | 2024-02-01 09:01 | W.PN.ID1 ---
Date of Service
Date of Service: February 01, 2024
Today's Communication
- will follow up vascular findings
- plan 6 weeks of IV meropenem and 6 weeks of oral linezolid - through 03/11/24
- script provided to caser in
- weekly labs to be sent to my office while on IV antibiotics
- has PICC
Assessment / Plan
(L) heel Wound - acute on chronic
DM foot infection
Osteomyelitis of the (L) heel
DM2 recently uncontrolled
Long QTc
Allergy to Penicillin - anaphylaxis
Reported allergies to Levaquin (hives), sulfa (hives), vancomycin red man
Class III obesity
- 01/25: superficial wound culture E coli, enterococcus, diptheroid
- 01/28 OR cultures: pseudomonas, e coli x2; there are moderate gpcs as well on gram stain
- path c/w osteomyelitis
- will follow up vascular findings
- plan 6 weeks of IV meropenem and 6 weeks of oral linezolid - through 03/11/24
- script provided to caser in
- weekly labs to be sent to my office while on IV antibiotics
- has PICC
Anaphylaxis 01/24 - penicillin
- allergy follow up outpatient for anaphylaxis 01/24 and IgE remarkably improved but remains 2x ULN; other immunoglobulins normal
����������������������������������������������������������
Chief Complaint
-: Other (Left heel osteomyelitis)
Subjective / Review of Systems
remains afebrile
arteriogram today
no complaints
Vital Signs / Physical Exam
Vital Signs
Vital Signs
Temp Pulse Resp BP Pulse Ox
98.2 F 80 21 100/60 95
02/01/24 03:30 02/01/24 06:00 02/01/24 06:00 02/01/24 06:00 01/31/24 20:48
Physical Exam
Constitutional: No Acute Distress, Chronically Ill and Obese
Cardiovascular: Regular Rate and S1/S2; Negative Murmur or Rub
Pulmonary: Clear and Symmetric; Negative Wheezes or Rales
Gastrointestinal: Soft, Non Tender, Non Distended and Normal Bowel Sounds
Skin: Warm and Dry; Negative Rash or Jaundice
Objective Data
Lab Data
Lab Results
02/01/24 04:48
02/01/24 04:48
Estimated Creat Clear 85 ml/min 02/01/24 04:48
Total Bilirubin 0.5 mg/dl (0.2-1.3) 02/01/24 04:48
AST 20 U/L (14-36) 02/01/24 04:48
ALT < 10 U/L (0-35) 02/01/24 04:48
Alkaline Phosphatase 86 U/L (38-126) 02/01/24 04:48
Most recent labs reviewed.
Micro Results:
01/29/24 14:50 Wound Culture - Preliminary
Foot - Left Pseudomonas aeruginosa
Escherichia coli
Gram Stain - Preliminary
01/29/24 14:50 Anaerobic Culture - Preliminary
Foot - Left Culture pending. Anaerobic cultures are examined after 3
days incubation. Additional information to follow.
01/29/24 14:50 Anaerobic Culture - Preliminary
Foot - Left Culture pending. Anaerobic cultures are examined after 3
days incubation. Additional information to follow.
01/29/24 14:50 Tissue Culture - Preliminary
Foot - Left Pseudomonas aeruginosa
Escherichia coli
Gram Stain - Preliminary
01/26/24 12:05 Wound Culture - Final
Foot - Left Escherichia coli
Enterococcus faecalis
Diptheroids
Gram Stain - Final
01/26/24 03:47 MRSA Screen - Final
Nose No Methicillin Resistant Staphylococcus aureus isolated.
Imaging:
01/27/2024 MRI left lower extremity: A soft tissue defect involving the posterior heel extends to the posterior bony margin of the calcaneus. Enhancing signal noted in the posterior calcaneus highly suggestive of osteomyelitis.
[2024-02-01] MEDS: CALAN EXTENDED RELEASE 240 MG PO (09:29)
[2024-02-01] MEDS: ASPIR LOW (ENTERIC COATED) 81 MG PO ×2 (09:29→20:14)
[2024-02-01] MEDS: COLACE 100 MG PO ×2 (09:30→20:18)
[2024-02-01] MEDS: DESENEX/MITRAZOL/ZEASORB 1 APPLIC TOPICAL ×2 (09:32→20:31)
[2024-02-01] MEDS: KCL 20 MEQ PO ×2 (09:32→20:14)
[2024-02-01] MEDS: LASIX 80 MG IV ×2 (09:33→19:57)
[2024-02-01] MEDS: NEURONTIN 300 MG PO ×2 (09:35→20:16)
[2024-02-01] MEDS: PROTONIX 40 MG PO (09:35)
[2024-02-01] MEDS: SANTYL OINTMENT 1 APPLIC TOPICAL (09:35)
[2024-02-01] MEDS: SENOKOT 17.2 MG PO ×2 (09:36→20:15)
[2024-02-01] MEDS: SINGULAIR 10 MG PO (09:36)
[2024-02-01] MEDS: TOPROL XL 25 MG PO (09:37)
[2024-02-01] MEDS: ZYVOX 600 MG PO ×2 (09:38→20:14)
[2024-02-01 12:09] LABS: Glucose - Point of Care 121 mg/dl (70-99)
[2024-02-01] MEDS: NOVOLOG FLEXPEN-MODERATE RESISTANCE SC ×2 (12:27→17:57)
[2024-02-01] MEDS: LANOXIN 125 MCG PO (12:28)
--- NOTE | 2024-02-01 13:04 | W.PN.POD ---
Today's Communication
Today's Communication
Pt for possible angiogram tomorrow by vascular surgery
Assessment / Plan
-
A/P : S/P LT heel debridement with bone biopsy POD # 3
B/L heel eschars probably pressure related with LT side worse with deroofed eschar and serous drainage
Rt heel dry intact eschar
Diabetic small vessel disease
Chronic b/l lower leg lymphedema
Obesity
Plan : Changed surgical dressings LT side, will start Santyl daily once with dressing changes
Abx per ID
possible wound VAC to LT side.
strict offloading heels in bed
heel relief shoe out of bed
Subjective
Chief Complaint
B/L heel pressure injury / eschar
Subjective
Pt seen at bedside, doing ok, no fever, chills. Denies nay acute distress, no chest pain, no SOB.
Objective
Temp Pulse Resp BP Pulse Ox
98.2 F 78 22 106/61 95
02/01/24 03:30 02/01/24 12:28 02/01/24 12:00 02/01/24 12:00 01/31/24 20:48
02/01/24 04:48
02/01/24 04:48
Vital Signs and Lab results were reviewed.
Diminished pedal pulses
LT heel surgical site Mostly pink, granular except 2 small islands of necrotic tissue noted. minimal purulence, moderate edema to Rt foot, center of the ulcer with small area of palpable bone noted. No undermining noted.
No red streaking up the foot/leg
No signs of any crepitus or abscess felt to both heels
Rt heel eschar is clean, dry, intact, no drainage, no edema, no foul odor noted. pink, granular rim around the eschar noted
--- NOTE | 2024-02-01 16:18 | CM ---
Patient with recent Hx s/p L Reverse Shoulder Arthroplasty with Dx type 1 allergic reaction to Zosyn, L heel wound s/p Left heel debridement with LT heel bone biopsy, HF. Plan arteriogram today. Room air. Receiving IV Lasix, IV meropenum. PICC
line placed. Seen by wound care nurse. NWB LLE. PT & OT; requires assist of 2, recommend skilled rehab.
Spoke with Katt, [facility]; benefits check done and patient will have copay of $100.14/week- she did not get to relay that to the patient today as benefits were rechecked as patient thought she had no out of pocket cost- CM will need to relay
that to her.
Katt did home infusion teaching visit - patient shown eclipse ball that will be administration method at home. She seemed capable of doing home IV Abx.
Plan follow up with patient tomorrow to inform her of out of pocket infusion costs.
Plan notify [facility] when date of d/c known- to confirm nurse available for home teaching visit.
Plan home with [facility] for home IV meropenum, with Lenka Lan, with family.
--- NOTE | 2024-02-01 16:29 | W.SUR.PREOP ---
Pre-Operative Surgical Note
-
I have examined this patient prior to the performance of the scheduled procedure.
The patient's condition is unchanged from the time of the current History and
Physical and the patient is able to undergo the scheduled procedure.
--- NOTE | 2024-02-01 16:34 | W.PN.UPDATE ---
Update Note
Progress Note Update
seen and examined. agree with resident note.
s/p OR debridement with Pod, hold atb until able to get bx cx inorder to maximize culture yeild.
cultures growing polymicrobial bacteria
-started on lisandra per ID
-poor wound healing per vascular
-for arteriogram today with vasc
[2024-02-01 17:28] LABS: Glucose - Point of Care 119 mg/dl (70-99)
--- NOTE | 2024-02-01 17:52 | W.PN.HOSP.TC ---
Addendum entered and electronically signed by Louis Caputo MD 02/01/24 18:17:
seen and examined. agree with resident note.
s/p OR debridement with Pod, hold atb until able to get bx cx inorder to maximize culture yeild.
cultures growing polymicrobial bacteria
-started on lisandra + linizolid [id number] per ID
-poor wound healing per vascular
-for arteriogram today with vasc
Original Note:
Today's Communication/Plan
-
Adjusted her metformin dose because her HbA1c was 9.3 from 8
Repeat HbA1c in outpatient with her PCP
Consider the possibility of adding a GLP-1 agonist
Assessment / Plan
Assessment / Plan
A/P:
# Possible Acute Respiratory Distress due to Anaphylaxis/type 1 allergic reaction to Zosyn
s/p Epi, IV Benadryl
s/p BiPAP, now on RA
# Left Heel DM Wound, Chronic L heel wound that is recently worse per patient.
# BL PAD, L > R
Patient is scheduled for arteriogram today 01/31
Pts HbA1c is 9.3 today (02/01/24) from 8 previously
-Check HbA1c outpatient, could be given a GLP-1 agonist, follow-up outpatient with her PCP
�Order metformin 1000 mg twice daily for patient due to increased HbA1c
L foot X-ray noted diffuse soft tissue swelling about the foot. Large posterior heel soft tissue wound.
However, MRI L foot is suggestive of osteomyelitis of posterior calcaneus
debridement - completed on 01/29/24
Bone Biopsy performed on 01/29/24 and results are pending
venous US neg for DVT
arterial US noted Left toe brachial index measures 0.37, compared to 0.59 on prior. Right toe brachial index measures 0.37, compared to 0.34 on prior study.
vascular consulted for worsening LLE PAD
Continue current med regimen including BID ASA, statin, etc.
ID started patient on meropenem 1000 mg IV q8H and Linezolid 600 PO BID through 03/11/24
Vascular Surgery consulted (01/30)
- Status post debridement with podiatry
- Add on to OR schedule tomorrow for arteriogram
- N.p.o. after midnight
- cont to offload, wound care per podiatry
Podiatry consulted about placing a potential wound vacuum for the left foot (01/30)
Continue to F/u with ID/ Vascular/podiatry
ID on board / Wound care on board
# Incidental finding of left groin mass noted from US, with internal vascularity.
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
Pt informed of finding
- Ct angiogram of the left lower groin performed on 01/29- showed The previously seen fluid collection in the left pelvis, which is incompletely imaged on the current exam, is stable from 2020.
There is moderate diffuse increased density to the subcutaneous tissues of the imaged left flank, hip and proximal thigh consistent with edema. There is moderate dermal thickening laterally in the same soft tissues.
The left groin venous vascular malformation shows an adjacent tubular structure along the inferior aspect of the malformation probably an enlarged lymph node. This measures approximately 6.4 x 1.7 cm., On the 2019 study, it measured 1.6 x 6.0 cm..
On today's exam, the malformation in left groin measures 9.0 cm from superior to inferior by 8.1 cm from right to left by 5.5 cm from anterior to posterior. Again the mass appears to communicate with the left common femoral vein as well as the left
greater saphenous vein at their junction.
There is moderate atherosclerotic vascular disease.
# Increased in size of Left adrenal gland mass (incidental finding) from CT AP.
Pt informed of finding.
Recc Outpt work up
# Acute on Chronic HFpEF, improved
# Pulmonary Hypertension
# Valvular Heart Disease
Continue IV Lasix for now with 80mg BID dosing. Follow I/Os, daily weights, etc.
Echo done last in November with normal LVEF, mitral / tricuspid regurg.
# Paroxysmal Atrial Fibrillation
Continue OP regimen of Dig, verapamil and metoprolol.
# Asthma / COPD, stable
Off BiPAP
Patient on no maintenance medications. Albuterol PRN.
# DM-II, Stable.
Continue basal : bolus insulin regimen. Adjust Lantus to 15 units HS (MANAGER OF RADIOLOGY 28 units HS) base off morning accucheck
Hold PO metformin acutely.
Follow glucose and cover with SSI as needed.
A1C 8.0%.
# Hypothyroidism, Stable.
Continue current T4 supplementation.
# s/p L Reverse Shoulder Arthroplasty, had surgery on 12/12/23.
Steri strips still in place.
PT / OT recc SNF
# Morbid Obesity due to excess calories, BMI 44
Affects all aspects of care.
Encourage healthy diet and increased activity as able with goal of weight loss.
DVT Prophylaxis: Lovenox
Code Status: Full
Dispo: eventual SNF
Anticipated Discharge: 24 - 48 hours
Subjective/Interval History
-
Date of Service: February 01, 2024
Patient had no acute complaints
Objective Data
-
Vital Signs:
Vital Signs
Temp Pulse Resp BP Pulse Ox
97.0 F 74 16 124/81 95
02/01/24 15:45 02/01/24 15:45 02/01/24 15:45 02/01/24 15:45 02/01/24 15:45
I&O
01/31/24 02/01/24 02/02/24
06:59 06:59 06:59
Intake Total 770 / 770 240 / 240 120 / 120
Output Total 1900 / 1900 900 / 900 1100 / 1100
Balance -1130 / -1130 -660 / -660 -980 / -980
Review of Systems
-
History Source: Patient
All other systems: Reviewed and negative
Physical Exam
-
General: Well Developed, Well Nourished and No Apparent Distress
HEENT: Normocephalic and Atraumatic
Respiratory: Clear to Auscultation and Wheezes
Cardiac: S1/S2
GI: Soft, Nontender and Nondistended
Musculoskeletal: Other (poorly healing diabetic wound of the left heel )
Skin: Warm and Dry
Neuro: Awake, Alert, Oriented and AO x 3
Psych: Calm
Data Reviewed
-
Labs: Labs Reviewed by me and Discussed with Physician
--- NOTE | 2024-02-01 18:02 | W.IMMPOSTOP ---
Surgical Immed Post Op Note
-
Primary Surgeon: Rufino
Assisting Surgeon: None
Pre-op Diagnosis: B/l heel ulcerations, PAD
Post-op Diagnosis: same
Procedure Performed: RLE diagnostic arteriogram
Anesthesia Type: local,sedation
Specimen / Cultures: none
Estimated Blood Loss: <2cc
Complications: none
Operative Findings: SHE HAS LARGE ? VENOUS MALFORMATION OR OTHER MASS LEFT GROIN NOTED IN PRIOR CT SCAN. PRECLUDED SAFE ACCESS TO LEFT FEMORAL VESSELS. FORCED TO DO R FEMORAL ARTERY PUNCTURE BUT COULDN'T SAFELY DO ANTEGRADE DUE TO HER MORBIDLY
OBESE HABITUS AND RISKS OF BLEEDING/SHORT RUNWAY OF COMMON FEMORAL ARTERY. PUNCTURED RETROGRADE WITH MICROPUNCTURE SHEATH AND OBTAINED IMAGES.
--- NOTE | 2024-02-01 18:05 | W.PN.UPDATE ---
Update Note
Progress Note Update
see my post op note.
recommend - 1) MRI b/l groins to eval ? venous malformations vs masses. need to formulate plan.
2) may have limited revasc options -for heel ulcers. will d/w patient tomorrow.
[2024-02-01 18:36] LABS: Glucose - Point of Care 102 mg/dl (70-99)
[2024-02-01] MEDS: NSS 1000 IV (19:05)
--- NOTE | 2024-02-01 19:50 | PTCARENOTE ---
Received verbal report from TANISHA Covarrubias. Pt arrived to unit from PACU in bed. NSS gtt running @ 80mL/hr. R groin surgical dressing dry and intact. Postop neurovascular check and vitals completed per protocol (see worklist). Pt afib on the monitor,
93% on 3L NC. Pt resting in bed with call duque in reach.
[2024-02-01] MEDS: LIPITOR 40 MG PO (20:15)
[2024-02-01] MEDS: LOVENOX 40 MG SC (20:17)
[2024-02-01] MEDS: ZOLOFT 50 MG PO (20:18)
[2024-02-01 20:27] LABS: Glucose - Point of Care 95 mg/dl (70-99)
[2024-02-01 21:36] LABS: Glucose - Point of Care 118 mg/dl (70-99)
[2024-02-01] MEDS: TYLENOL 650 MG PO (22:05)
[2024-02-01] MEDS: LANTUS 0.15 UNITS SC (22:05)
[2024-02-02] VITALS (25 sets, daily range): BP systolic 67–147; BP diastolic 46–125; BMI 43.6
[2024-02-02] MEDS: STERILE WATER FOR INJECTION 20 ML IV ×3 (03:57→20:10)
[2024-02-02] MEDS: MERREM 1000 MG IV ×3 (03:57→20:10)
[2024-02-02] MEDS: SYNTHROID 125 MCG PO (04:24)
[2024-02-02 05:00] LABS: % Basophils 1.1 % (0-2); % Eosinophils 5.4 % (0-6); % Immature Granulocytes 1.6 % (0-0.5); % Lymphocytes 8.6 % (20.5-51.1); % Monocytes 7.5 % (1.7-9.3); % Neutrophils 75.8 % (42.2-75.2); Absolute Basophils 0.1 10^3/uL (0-0.2); Absolute Eosinophils 0.2 10^3/uL (0-0.7); Absolute Immature Granulocytes 0.1 10^3/uL (0-0.05); Absolute Lymphocytes 0.4 10^3/uL (1.2-3.4); Absolute Monocytes 0.3 10^3/uL (0.1-0.6); Absolute Neutrophils 3.3 10^3/uL (1.4-6.5); Hematocrit 30.3 % (37.0-47.0); Hemoglobin 9.3 g/dL (12.0-16.0); Mean Corp Hgb Conc. 30.7 g/dL (33.0-37.0); Mean Corpuscular Hgb 25.8 pg (27.0-31.0); Mean Corpuscular Volume 84.2 fL (81.0-99.0); Mean Platelet Volume 9.5 fL (7.4-10.4); Nucleated Red Blood Cells % 0 %; Platelet Count 248 10^3/uL (130-400); Red Cell Dist. Width 16.4 % (11.5-14.5); White Blood Cell Count 4.4 10^3/uL (4.8-10.8)
[2024-02-02 05:19] LABS: INR 1.22; PT 15.5 Sec (11.4-14.6)
[2024-02-02 05:20] LABS: APTT 30.9 Sec (23.4-35.0)
[2024-02-02 05:27] LABS: ALT (SGPT) < 10 U/L (0-35); AST (SGOT) 19 U/L (14-36); Alkaline Phosphatase 86 U/L (38-126); Blood Urea Nitrogen 17 mg/dl (7-17); Calcium 8.8 mg/dl (8.4-10.2); Carbon Dioxide 30 mmol/L (22-30); Chloride 104 mmol/L (98-107); Estimated Creatinine Clearance 65 ml/min; Glucose 93 mg/dl (70-99); Potassium 4.6 mmol/L (3.5-5.1); Sodium 141 mmol/L (135-145); Total Bilirubin 0.6 mg/dl (0.2-1.3); Total Protein 5.7 g/dl (6.3-8.2); eGFR > 60.00
[2024-02-02 08:08] LABS: Glucose - Point of Care 94 mg/dl (70-99)
--- NOTE | 2024-02-02 08:59 | W.PN.VS ---
Today's Communication / Plan
-
Discussed with Dr. Joy
Assessment/Plan
-
POD 1 diagnostic LE angiogram
- MRI today of left groin malformation versus mass
- Outpatient follow-up for surgical discussion with Dr. Joy for revascularization options
- cont to offload, wound care per podiatry
I spoke at length with the patient and her daughter via telephone, answered all questions
Subjective Data
-
Date of Service: February 02, 2024
Patient is at bedside this a.m., resting comfortably offers no complaints at this time. No events overnight. Groin site stable
Objective Data
-
Vital Signs
Temp Pulse Resp BP Pulse Ox
98.3 F 71 18 111/61 93
02/02/24 07:49 02/02/24 06:00 02/02/24 06:00 02/02/24 06:00 02/02/24 06:00
Intake and Output
02/01/24 02/02/24 02/03/24
06:59 06:59 06:59
Intake Total 240 / 240 620 / 620
Output Total 900 / 900 1650 / 1650
Balance -660 / -660 -1030 / -1030
Intake:
Oral fluids 240 / 240 520 / 520
IV fluids (Total) 100 / 100
NSS 100 / 100
Output:
Urine, Voided 900 / 900 1650 / 1650
Other:
How many times incontinent 1
SATURATED amount urine
Lab Results
02/02/24 04:24
02/02/24 04:24
Calcium 8.8 mg/dl (8.4-10.2) 02/02/24 04:24
Magnesium 2.1 mg/dl (1.6-2.3) 01/27/24 04:29
Total Bilirubin 0.6 mg/dl (0.2-1.3) 02/02/24 04:24
AST 19 U/L (14-36) 02/02/24 04:24
ALT < 10 U/L (0-35) 02/02/24 04:24
Alkaline Phosphatase 86 U/L (38-126) 02/02/24 04:24
Total Protein 5.7 g/dl (6.3-8.2) L 02/02/24 04:24
Albumin 3.0 g/dl (3.5-5.0) L 02/02/24 04:24
Physical Exam
-
AAOx3
No tachypnea on room air
No tachycardia
Abdomen soft
Right groin site clean, dry, intact, soft, no drainage noted
[2024-02-02] MEDS: NOVOLOG FLEXPEN-MODERATE RESISTANCE SC ×2 (09:10→12:30)
[2024-02-02] MEDS: KCL 20 MEQ PO ×2 (09:11→20:09)
[2024-02-02] MEDS: LASIX 80 MG IV ×2 (09:11→16:26)
[2024-02-02] MEDS: FLUSH (NSS) 1 FLUSH IV (09:12)
[2024-02-02] MEDS: SENOKOT 17.2 MG PO (09:12)
[2024-02-02] MEDS: SINGULAIR 10 MG PO (09:12)
[2024-02-02] MEDS: COLACE 100 MG PO (09:12)
[2024-02-02] MEDS: GLUCOPHAGE 1000 MG PO ×2 (09:13→18:17)
[2024-02-02] MEDS: NEURONTIN 300 MG PO ×2 (09:13→20:09)
[2024-02-02] MEDS: TOPROL XL 25 MG PO (09:13)
[2024-02-02] MEDS: DESENEX/MITRAZOL/ZEASORB 1 APPLIC TOPICAL ×2 (09:13→20:10)
[2024-02-02] MEDS: ASPIR LOW (ENTERIC COATED) 81 MG PO ×2 (09:13→20:08)
[2024-02-02] MEDS: CALAN EXTENDED RELEASE 240 MG PO (09:13)
[2024-02-02] MEDS: PROTONIX 40 MG PO (09:14)
[2024-02-02] MEDS: ZYVOX 600 MG PO ×2 (09:15→20:09)
--- NOTE | 2024-02-02 09:15 | W.PN.ID1 ---
Date of Service
Date of Service: February 02, 2024
Today's Communication
- plan 6 weeks of IV meropenem and 6 weeks of oral linezolid - through 03/11/24
Assessment / Plan
(L) heel Wound - acute on chronic
DM foot infection
Osteomyelitis of the (L) heel
DM2 recently uncontrolled
Long QTc
Allergy to Penicillin - anaphylaxis
Reported allergies to Levaquin (hives), sulfa (hives), vancomycin red man
Class III obesity
- 01/25: superficial wound culture E coli, enterococcus, diptheroid
- 01/28 OR cultures: pseudomonas, e coli x2; there are moderate gpcs as well on gram stain
- path c/w osteomyelitis
- will follow up vascular findings
- plan 6 weeks of IV meropenem and 6 weeks of oral linezolid - through 03/11/24
- script provided to family service caseworker
- weekly labs to be sent to my office while on IV antibiotics
- has PICC
Anaphylaxis 01/24 - penicillin
- allergy follow up outpatient for anaphylaxis 01/24 and IgE remarkably improved but remains 2x ULN; other immunoglobulins normal
����������������������������������������������������������
Chief Complaint
-: Other (Left heel osteomyelitis)
Subjective / Review of Systems
afebrile
no complaints
Vital Signs / Physical Exam
Vital Signs
Vital Signs
Temp Pulse Resp BP Pulse Ox
98.3 F 71 18 111/61 93
02/02/24 07:49 02/02/24 06:00 02/02/24 06:00 02/02/24 06:00 02/02/24 06:00
Physical Exam
Constitutional: No Acute Distress and Chronically Ill
Cardiovascular: Regular Rate and S1/S2; Negative Murmur or Rub
Pulmonary: Clear and Symmetric; Negative Wheezes or Rales
Gastrointestinal: Soft, Non Tender, Non Distended and Normal Bowel Sounds
Skin: Warm and Dry; Negative Rash or Jaundice
Wound: Other (dressings clean, dry, intact)
Objective Data
Lab Data
Lab Results
02/02/24 04:24
02/02/24 04:24
PT 15.5 Sec (11.4-14.6) H 02/02/24 04:24
INR 1.22 02/02/24 04:24
APTT 30.9 Sec (23.4-35.0) 02/02/24 04:24
Estimated Creat Clear 65 ml/min 02/02/24 04:24
Total Bilirubin 0.6 mg/dl (0.2-1.3) 02/02/24 04:24
AST 19 U/L (14-36) 02/02/24 04:24
ALT < 10 U/L (0-35) 02/02/24 04:24
Alkaline Phosphatase 86 U/L (38-126) 02/02/24 04:24
Most recent labs reviewed.
Micro Results:
01/29/24 14:50 Anaerobic Culture - Preliminary
Foot - Left Culture pending. Anaerobic cultures are examined after 3
days incubation. Additional information to follow.
01/29/24 14:50 Anaerobic Culture - Preliminary
Foot - Left Culture pending. Anaerobic cultures are examined after 3
days incubation. Additional information to follow.
01/29/24 14:50 Wound Culture - Preliminary
Foot - Left Pseudomonas aeruginosa
Escherichia coli
Gram Stain - Preliminary
01/29/24 14:50 Tissue Culture - Preliminary
Foot - Left Pseudomonas aeruginosa
Escherichia coli
Gram Stain - Preliminary
01/26/24 12:05 Wound Culture - Final
Foot - Left Escherichia coli
Enterococcus faecalis
Diptheroids
Gram Stain - Final
01/26/24 03:47 MRSA Screen - Final
Nose No Methicillin Resistant Staphylococcus aureus isolated.
Imaging:
01/27/2024 MRI left lower extremity: A soft tissue defect involving the posterior heel extends to the posterior bony margin of the calcaneus. Enhancing signal noted in the posterior calcaneus highly suggestive of osteomyelitis.
--- NOTE | 2024-02-02 11:05 | W.PN.HOSP.TC ---
Today's Communication/Plan
-
Per vascular surgery- on MRI finding (02/01)
IMPRESSION:
1. LARGE 11.6 cm HYPERVASCULAR SOFT TISSUE MASS in the left groin and smaller soft tissue masses in the more inferior left groin and the right groin which are new from 06/08/2021. Diagnostic possibilities are (1) lymphoma, (2) Casteleman disease,
(3) metastatic lymphadenopathy or (4) atypical reactive lymphadenopathy.
2. 8.8 cm benign-appearing chronic cyst in the left side of the pelvis.
3. Moderate to severe diffuse muscle atrophy.
4. Moderate anasarca.
Put in consult for surgical oncology/ met oncology to evaluate.
Met with patient today and informed her about the results.
Continue to follow up with these results in outpatient.
continue the current dose of metformin.
Continue the current dose of IV antibiotics
F/U with vascular surgery about the MRI
Check Hbg in outpatient office 3 months from now
Speak to patients case management manager about setting up patients IV infusion at home for the antibiotics
Get a script from ID for the home IV meropenem infusion
Wants to be discharged home
Assessment / Plan
Assessment / Plan
A/P:
# Possible Acute Respiratory Distress due to Anaphylaxis/type 1 allergic reaction to Zosyn
s/p Epi, IV Benadryl
s/p BiPAP, now on RA
# Left Heel DM Wound, Chronic L heel wound that is recently worse per patient.
# BL PAD, L > R
Patient scheduled for an MRI of the left groin today (02/01)
Patient is scheduled for arteriogram today 01/31
Pts HbA1c is 9.3 today (02/01/24) from 8 previously
-Check HbA1c outpatient, could be given a GLP-1 agonist, follow-up outpatient with her PCP
�Order metformin 1000 mg twice daily for patient due to increased HbA1c
L foot X-ray noted diffuse soft tissue swelling about the foot. Large posterior heel soft tissue wound.
However, MRI L foot is suggestive of osteomyelitis of posterior calcaneus
debridement - completed on 01/29/24
Bone Biopsy performed on 01/29/24 and results are pending
venous US neg for DVT
arterial US noted Left toe brachial index measures 0.37, compared to 0.59 on prior. Right toe brachial index measures 0.37, compared to 0.34 on prior study.
vascular consulted for worsening LLE PAD
Continue current med regimen including BID ASA, statin, etc.
ID started patient on meropenem 1000 mg IV q8H and Linezolid 600 PO BID through 03/11/24
Podiatry consulted about placing a potential wound vacuum for the left foot (01/30)
Continue to F/u with ID/ Vascular/podiatry
ID on board / Wound care on board
# Incidental finding of left groin mass noted from US, with internal vascularity.
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
Pt informed of finding
- Ct angiogram of the left lower groin performed on 01/29- showed The previously seen fluid collection in the left pelvis, which is incompletely imaged on the current exam, is stable from 2020.
There is moderate diffuse increased density to the subcutaneous tissues of the imaged left flank, hip and proximal thigh consistent with edema. There is moderate dermal thickening laterally in the same soft tissues.
The left groin venous vascular malformation shows an adjacent tubular structure along the inferior aspect of the malformation probably an enlarged lymph node. This measures approximately 6.4 x 1.7 cm., On the 2020 study, it measured 1.6 x 6.0 cm..
On today's exam, the malformation in left groin measures 9.0 cm from superior to inferior by 8.1 cm from right to left by 5.5 cm from anterior to posterior. Again the mass appears to communicate with the left common femoral vein as well as the left
greater saphenous vein at their junction.
There is moderate atherosclerotic vascular disease.
on MRI finding (02/01)
IMPRESSION:
1. LARGE 11.6 cm HYPERVASCULAR SOFT TISSUE MASS in the left groin and smaller soft tissue masses in the more inferior left groin and the right groin which are new from 06/08/2021. Diagnostic possibilities are (1) lymphoma, (2) Casteleman disease,
(3) metastatic lymphadenopathy or (4) atypical reactive lymphadenopathy.
2. 8.8 cm benign-appearing chronic cyst in the left side of the pelvis.
3. Moderate to severe diffuse muscle atrophy.
4. Moderate anasarca.
Put in consult for surgical oncology/ met oncology to evaluate.
# Increased in size of Left adrenal gland mass (incidental finding) from CT AP.
Pt informed of finding.
Recc Outpt work up
# Acute on Chronic HFpEF, improved
# Pulmonary Hypertension
# Valvular Heart Disease
Continue IV Lasix for now with 80mg BID dosing. Follow I/Os, daily weights, etc.
Echo done last in November with normal LVEF, mitral / tricuspid regurg.
# Paroxysmal Atrial Fibrillation
Continue OP regimen of Dig, verapamil and metoprolol.
# Asthma / COPD, stable
Off BiPAP
Patient on no maintenance medications. Albuterol PRN.
# DM-II, Stable.
Continue basal : bolus insulin regimen. Adjust Lantus to 15 units HS (SPOOL SANDER 28 units HS) base off morning accucheck
Hold PO metformin acutely.
Follow glucose and cover with SSI as needed.
A1C 8.0%.
# Hypothyroidism, Stable.
Continue current T4 supplementation.
# s/p L Reverse Shoulder Arthroplasty, had surgery on 12/12/23.
Steri strips still in place.
PT / OT recc SNF
# Morbid Obesity due to excess calories, BMI 44
Affects all aspects of care.
Encourage healthy diet and increased activity as able with goal of weight loss.
DVT Prophylaxis: Lovenox
Code Status: Full
Dispo: eventual SNF
Anticipated Discharge: 24 - 48 hours
Subjective/Interval History
-
Date of Service: February 02, 2024
Patient has no acute complaints.
On diabetic diet
Scheduled for an MRI today because vascular surg unable to obtain femoral access for the Right and left Side for ateriogram
Objective Data
-
Labs:
Laboratory Results
02/02/24
04:24
WBC 4.4 L
Hgb 9.3 L
Hct 30.3 L
Plt Count 248
PT 15.5 H
INR 1.22
APTT 30.9
Sodium 141
Potassium 4.6
Chloride 104
Carbon Dioxide 30
BUN 17
Creatinine 0.9
Glucose 93
Calcium 8.8
Total Bilirubin 0.6
AST 19
ALT < 10
Alkaline Phosphatase 86
Vital Signs:
Vital Signs
Temp Pulse Resp BP Pulse Ox
98.3 F 71 18 111/61 93
02/02/24 07:49 02/02/24 06:00 02/02/24 06:00 02/02/24 06:00 02/02/24 06:00
I&O
02/01/24 02/02/24 02/03/24
06:59 06:59 06:59
Intake Total 240 / 240 620 / 620
Output Total 900 / 900 1650 / 1650
Balance -660 / -660 -1030 / -1030
Review of Systems
-
History Source: Patient
All other systems: Reviewed and negative
Physical Exam
-
General: Well Developed, Well Nourished and No Apparent Distress
Respiratory: Clear to Auscultation
Cardiac: S1/S2
GI: Soft, Nontender and Nondistended
Musculoskeletal: Other (Poorly healing wound of the left heel, able to move toes, sensation intact, )
Skin: Warm and Dry
Neuro: Awake, Alert, Oriented and AO x 3
Psych: Calm
Data Reviewed
-
Labs: Labs Reviewed by me and Discussed with Physician
--- NOTE | 2024-02-02 11:30 | PTCARENOTE ---
Patient off unit to MRI
[2024-02-02] MEDS: LANOXIN 125 MCG PO (12:30)
[2024-02-02 12:36] LABS: Glucose - Point of Care 129 mg/dl (70-99)
--- NOTE | 2024-02-02 13:16 | CM ---
Addendum entered by Dulce Martinez RN 02/02/24 16:41:
Son aware of ambulance transport home and home O2 delivery this evening.
Addendum entered by Dulce Martinez RN 02/02/24 16:36:
Patient agrees to home O2 through [facility]- ordered phoned/faxed to Joanne at [facility] for delivery to home prior to 11am tomorrow.
Original Note:
Patient with recent Hx s/p L Reverse Shoulder Arthroplasty with Dx type 1 allergic reaction to Zosyn, L heel wound s/p Left heel debridement with LT heel bone biopsy, HF, s/p arteriogram yesterday. MRI today. Receiving IV meropenum. PICC line
placed. Seen by wound care nurse. NWB LLE. PT & OT; requires assist of 2, recommend skilled rehab.
Spoke with [facility]; they will deliver her med and supplies to her home this evening.
Spoke with Lynn, Nurse Liaison [facility]; she confirmed that their nurse will be able to do the home IV infusion visit at noon tomorrow. She is aware of IV Abx delivery this evening by [facility].
Met with patient who agrees to [facility] out of pocket cost of $100.14/week. She agrees with discharge tomorrow morning at 11am and agrees to ambulance transport home. She called her son to let him know. The patient says she is eager to go home
to see her dog and 2 puppies. IMM completed.
Spoke with Amanuel, patient's son; he will be home today to accept delivery of patient's meds/supplies. He is aware [facility] nurse will see his mother tomorrow at noon.
Request for ambulance to home for 11am tomorrow.
Plan home tomorrow with [facility] for home IV meropenum, with Lenka Lan, with family.
[2024-02-02] MEDS: SANTYL OINTMENT 1 APPLIC TOPICAL (13:22)
[2024-02-02] MEDS: FLUSH (NSS) 2 FLUSH IV ×2 (13:23→16:27)
--- NOTE | 2024-02-02 15:26 | PTCARENOTE ---
Patient was assessed for home o2 in bed. Patient wheelchair bound and NWB on left heel. Room air Sp02 83%. Patient back on 2L with spo2 95%.
--- NOTE | 2024-02-02 16:00 | RESPNOTE ---
Respiratory: SpO2 83% on room air, with upper body exercises and repositioning. Oxygen titrated to 2 LPM with SpO2 94% with upper body exercises performed. Patient tolerated well.
--- NOTE | 2024-02-02 17:00 | W.PN.UPDATE ---
Update Note
Progress Note Update
MRI report reviewed. As suspected - the left groin mass is likely not a venous malformation as indicated prior. Recommend evaluation by medical and surgical oncology teams. Communicated to hospitalist. Can manage peripheral arterial concerns as
outpatient. Will sign off. Please call with questions.
--- NOTE | 2024-02-02 17:06 | OR.RPT ---
Operative Report
Operative Report
PROCEDURE DATE: 02/01/2024
Preoperative diagnosis: Bilateral heel ulcerations nonhealing, peripheral arterial disease.
Postoperative diagnosis: Same
Procedure:
1. Duplex assisted right common femoral artery cannulation.
2. Right lower extremity diagnostic arteriography.
Surgeon: Rufino
Shift Supervisor Film Processing: None
Complications: None
Anesthesia: Local, sedation
Fluoroscopy:
1.6 min
18 mGy
4.54 Gy.cm2
Indications for procedure:
Bilateral heel ulcerations. Prior left lower extremity arteriography had demonstrated single-vessel peroneal continuous runoff which reconstituted dorsalis pedis on the foot. No great perfusion to heal and no real revascularization options to
enhance heel perfusion. However given continued nonhealing of left heel wound and new right sided wound favored angiogram of right lower extremity with possible intervention for the right side, and possible diagnostic left lower extremity
arteriogram. Risk/benefit/alternatives discussed with patient. She understood all wish to proceed.
Description of procedure:
Patient was identified, brought to the operating room. Placed on the table in the supine position. After the adequate administration of anesthesia, the patient was prepped and draped in the standard surgical fashion. A standard preoperative
timeout was undertaken and everybody was in agreement with the plan.
Duplex imaging was performed of the left groin to try to puncture left common femoral artery. However due to this overlying mass I was unable to identify a safe spot where the common femoral artery was clear to puncture. The only potential spot
was very high in the groin approaching the external iliac artery, and in addition based on her habitus (morbidly obese) ran significant risk of bleeding with such a high puncture. Therefore I felt an antegrade stick on the right side would be
better and I would have to image the left side on a separate fashion. However, due to her severe pannus/morbid obesity, antegrade puncture in the right groin proved to be prohibitive especially given a short common femoral artery runway. I
therefore then felt I could perform diagnostic imaging via retrograde puncture. Therefore with duplex assistance I used a micropuncture needle to puncture the right common femoral artery (albeit with great difficulty). Micropuncture sheath was
then advanced over the micropuncture wire. I then performed right lower extremity arteriogram using the micropuncture sheath. This demonstrated patent right common femoral and profunda femoris artery with no significant stenosis. Patent
superficial femoral and popliteal artery with no significant stenosis. Below the knee proximally there is a three-vessel runoff within the anterior tibial artery occluded about 4 cm beyond the origin. There was continuous flow through the
tibioperoneal trunk into the peroneal artery all the way down to the ankle. At the ankle there was a single collateral which was very weak. The posterior tibial artery was patent throughout its course but was heavily diseased especially at the
level of the ankle/forefoot where there was severe disease/stenosis and was very diminutive in size. At this point I felt that the only potential option would be to try to angioplasty the posterior tibial artery to enhance perfusion towards the
heel. However given that I performed retrograde angiogram, this was not feasible currently. The patient would require a cutdown either in the right superficial femoral artery with antegrade puncture versus the left superficial femoral artery with
retrograde puncture to perform this. Therefore we will discuss with patient and have to decide how to proceed. At this point the micropuncture catheter was removed. Manual pressure was applied to the puncture site. Hemostasis was fully achieved.
The patient tolerated procedure well.
--- NOTE | 2024-02-02 17:07 | W.PN.UPDATE ---
Update Note
Progress Note Update
Per vascular surgery- on MRI finding (02/01)
IMPRESSION:
1. LARGE 11.6 cm HYPERVASCULAR SOFT TISSUE MASS in the left groin and smaller soft tissue masses in the more inferior left groin and the right groin which are new from 06/08/2021. Diagnostic possibilities are (1) lymphoma, (2) Casteleman disease,
(3) metastatic lymphadenopathy or (4) atypical reactive lymphadenopathy.
2. 8.8 cm benign-appearing chronic cyst in the left side of the pelvis.
3. Moderate to severe diffuse muscle atrophy.
4. Moderate anasarca.
Put in consult for surgical oncology/ met oncology to evaluate.
[2024-02-02 17:19] LABS: Glucose - Point of Care 172 mg/dl (70-99)
--- NOTE | 2024-02-02 18:04 | W.PN.UPDATE ---
Update Note
Progress Note Update
Patient is in need of oxygen at 2 liters/minute via nasal cannula continuously due to pulse oximetry of 88% on room air at rest. Oxygen will help to improve hypoxemia. Patient is mobile within the home. DuoNeb therapy has been tried and is
ineffective in treating hypoxemia related symptoms. Oxygen is needed to improve symptoms related to her acute hypoxemic respiratory failure from anaphylactic reaction to Zosyn.
[2024-02-02] MEDS: NOVOLOG FLEXPEN-MODERATE RESISTANCE 1 UNITS SC (18:16)
[2024-02-02] MEDS: LOVENOX 40 MG SC (18:19)
[2024-02-02] MEDS: LANTUS 0.15 UNITS SC (18:19)
[2024-02-02] MEDS: COLACE PO (20:09)
[2024-02-02] MEDS: SENOKOT PO (20:10)
[2024-02-02] MEDS: ZOLOFT 50 MG PO (20:12)
[2024-02-02] MEDS: LIPITOR 40 MG PO (20:12)
[2024-02-02 21:51] LABS: Glucose - Point of Care 186 mg/dl (70-99)
[2024-02-03] VITALS (12 sets, daily range): BP systolic 90–117; BP diastolic 43–77; BMI 44.6
[2024-02-03] MEDS: STERILE WATER FOR INJECTION 20 ML IV (04:41)
[2024-02-03] MEDS: SYNTHROID 125 MCG PO (04:42)
[2024-02-03] MEDS: MERREM 1000 MG IV (04:42)
[2024-02-03 04:54] LABS: % Basophils 1.1 % (0-2); % Eosinophils 5.9 % (0-6); % Immature Granulocytes 0.8 % (0-0.5); % Lymphocytes 13.9 % (20.5-51.1); % Monocytes 10.5 % (1.7-9.3); % Neutrophils 67.8 % (42.2-75.2); Absolute Basophils 0.1 10^3/uL (0-0.2); Absolute Eosinophils 0.3 10^3/uL (0-0.7); Absolute Lymphocytes 0.7 10^3/uL (1.2-3.4); Absolute Monocytes 0.6 10^3/uL (0.1-0.6); Absolute Neutrophils 3.6 10^3/uL (1.4-6.5); Hemoglobin 9.5 g/dL (12.0-16.0); Mean Corp Hgb Conc. 31.7 g/dL (33.0-37.0); Mean Corpuscular Hgb 26.4 pg (27.0-31.0); Mean Corpuscular Volume 83.3 fL (81.0-99.0); Mean Platelet Volume 9.4 fL (7.4-10.4); Nucleated Red Blood Cells % 0 %; Platelet Count 224 10^3/uL (130-400); Red Cell Dist. Width 16.5 % (11.5-14.5); White Blood Cell Count 5.3 10^3/uL (4.8-10.8)
[2024-02-03 05:15] LABS: ALT (SGPT) < 10 U/L (0-35); AST (SGOT) 19 U/L (14-36); Albumin 3.1 g/dl (3.5-5.0); Alkaline Phosphatase 95 U/L (38-126); Blood Urea Nitrogen 22 mg/dl (7-17); Calcium 8.7 mg/dl (8.4-10.2); Carbon Dioxide 29 mmol/L (22-30); Chloride 103 mmol/L (98-107); Estimated Creatinine Clearance 66 ml/min; Glucose 108 mg/dl (70-99); Potassium 4.8 mmol/L (3.5-5.1); Sodium 140 mmol/L (135-145); Total Bilirubin 0.6 mg/dl (0.2-1.3); Total Protein 5.7 g/dl (6.3-8.2); eGFR > 60.00
--- NOTE | 2024-02-03 07:56 | CM ---
Patient son called to state IV antibiotics had not arrived last night. Home O2 had. CM updated IMU nursing, patient scheduled for discharge today per son. CM will update CM.
[2024-02-03] MEDS: PROTONIX 40 MG PO (08:31)
[2024-02-03] MEDS: CALAN EXTENDED RELEASE 240 MG PO (08:31)
[2024-02-03] MEDS: NOVOLOG FLEXPEN-MODERATE RESISTANCE SC (08:32)
[2024-02-03] MEDS: ASPIR LOW (ENTERIC COATED) 81 MG PO (08:33)
[2024-02-03] MEDS: KCL 20 MEQ PO (08:33)
[2024-02-03] MEDS: GLUCOPHAGE 1000 MG PO (08:33)
[2024-02-03] MEDS: ZYVOX 600 MG PO (08:33)
[2024-02-03] MEDS: SENOKOT PO (08:34)
[2024-02-03] MEDS: SANTYL OINTMENT 1 APPLIC TOPICAL (08:34)
[2024-02-03] MEDS: COLACE PO (08:34)
[2024-02-03] MEDS: LASIX 80 MG IV (08:35)
[2024-02-03] MEDS: SINGULAIR 10 MG PO (08:36)
[2024-02-03] MEDS: TOPROL XL 25 MG PO (08:36)
[2024-02-03] MEDS: NEURONTIN 300 MG PO (08:36)
[2024-02-03] MEDS: DESENEX/MITRAZOL/ZEASORB 1 APPLIC TOPICAL (08:37)
[2024-02-03 08:43] LABS: Glucose - Point of Care 95 mg/dl (70-99)
--- NOTE | 2024-02-03 09:00 | CON.ONC ---
Impression
Impression
L groin mass incidentally noted on imaging, increased in size from previous
Anemia, suspect multifactorial including infection/inflammation
L adrenal mass, slow growth consistent with adenoma
Foot ulcer
Peripheral vascular disease
Plan
Plan
Need tissue.
Consult IR regarding L groin mass and node - case d/w Dr. Barclay.
Non-healing wounds can occasionally harbor squamous cell carcinoma which can then met to regional lymph node. Lymphoma and atypical reactive nodes also a possible etiology of groin nodes.
May need discharge planning assistance with arranging transport back to for biopsy.
Thank you for consult, we will arrange outpt f/u with our group.
Patient History
History of Present Illness
Patricia Clark is a 73-year-old woman with type 2 diabetes, obesity, and recent reverse left shoulder replacement. She was in rehab after the shoulder surgery. She had a chronic left heel wound which developed increased drainage, odor and pain.
She was transferred to the hospital for debridement. She has been followed by vascular surgery. She has been incidentally noted to have a large left groin mass with malignancy not excluded. She was not aware of the mass or nearby lymph node and
cannot tell us how long it has been there. CT of the abdomen pelvis from January 26 indicates that there was a smaller mass in the same region in September 2022. Also noted on the scan were a small mass in the right groin, stable ovoid collection in
the left lateral pelvis representing chronic lymphocele, top-normal to slightly enlarged pelvic lymph nodes stable from previous and a large left adrenal mass which has been present since at least December 2019 showing slow interval growth suggestive of
adenoma. During this hospitalization she has also undergone venous Doppler of the area and up pelvic MRI. Vascular surgery does not feel that the left groin mass is patient denies unintentional weight loss although she has been intentionally
losing weight. She denies fevers, chills, drenching night sweats. Exam is somewhat limited by morbid obesity but there is no palpable adenopathy in the bilateral axillae, neck or supraclavicular regions. Patient does not have a prior history of
malignancy. She is being discharged today with ambulance transport set up for 11 AM. She reports issues with transportation due to decreased functional mobility.
Past-Medical/Surgical History
Past Medical History:
Hypertension
DM-II
Morbid Obesity
Chronic HFpEF
Moderate - Severe MR
Moderate - Severe TR / Pulmonary Hypertension
ASCVD
Paroxysmal Atrial Fibrillation
Asthma / COPD
Hypothyroidism
Past Surgical History:
PVI Ablation
Watchman Device
PTCA with Stent (x 2)
Cholecystectomy
T&A
Bladder Repair
Craniotomy / Meningioma Resection
Left Reverse Total Shoulder Arthroplasty
Social History
Tobacco: Former Smoker (Quit smoking in 1996.)
Alcohol: Former (History of alcohol use disorder. Now sober.)
Family History
Family History: Not pertinent
Patient Medication
�Medication �Instructions �Recorded �Confirmed �Last Taken �Type
albuterol sulfate 90 mcg/actuation 2 puff inhalation R Q4HPRN PRN 09/27/19 01/25/24 11/21/23 History
aerosol inhaler sob/wheezing
atorvastatin 40 mg tablet 40 mg PO HS High cholesterol 04/23/21 01/25/24 01/23/24 History
fenofibrate nanocrystallized 48 mg 48 mg PO HS High cholesterol 07/13/21 01/25/24 01/23/24 History
tablet
montelukast 10 mg tablet 10 mg PO DAILY Allergies 11/30/21 01/25/24 01/24/24 History
pantoprazole 40 mg tablet,delayed 40 mg PO DAILY Gastrointestinal 11/30/21 01/25/24 01/24/24 History
release issue
sertraline 50 mg tablet 50 mg PO HS Depression 11/30/21 01/25/24 01/23/24 History
digoxin 125 mcg (0.125 mg) tablet 125 mcg PO DAILY Heart 08/22/23 01/25/24 01/24/24 History
Disease/Condition
fluticasone 250 mcg-salmeterol 50 1 inh inhalation R DAILYPRN PRN 08/22/23 01/25/24 08/04/23 History
mcg/dose blistr powdr for sob/wheezing
inhalation (Advair Diskus)
levothyroxine 125 mcg tablet 125 mcg PO DAILY Thyroid 08/22/23 01/25/24 01/24/24 History
(Synthroid)
potassium chloride 20 mEq 20 meq PO BID Electrolyte Repletion 08/22/23 01/25/24 01/24/24 History
tablet,extended release(part/cryst)
spironolactone 25 mg tablet 25 mg PO DAILY Heart Failure 08/22/23 01/25/24 01/24/24 History
verapamil 240 mg 24 hr 240 mg PO DAILY Blood Pressure 11/04/23 01/25/24 01/24/24 History
capsule,extended release
zolpidem 12.5 mg tablet,extended 12.5 mg PO HS Sleep 11/04/23 01/25/24 01/23/24 History
release,multiphase
metoprolol succinate 25 mg 25 mg PO DAILY #30 tabs 11/06/23 01/25/24 01/24/24 Rx
tablet,extended release 24 hr
aspirin 81 mg tablet,delayed 81 mg PO BID #0 tabs 12/14/23 01/25/24 12/11/23 07:30 Rx
release
docusate sodium 100 mg capsule 100 mg PO BID stool softner #1 cap 12/14/23 01/25/24 01/24/24 Rx
(Colace)
gabapentin 300 mg capsule 300 mg PO BID sleep/pain #10 caps 12/14/23 01/25/24 01/24/24 Rx
insulin glargine 100 unit/mL 28 unit (0.28 mL) SC QPM DM #1 mL 12/14/23 01/25/24 01/23/24 Rx
subcutaneous solution (Lantus
U-100 Insulin)
sennosides 8.6 mg tablet (Senokot) 17.2 mg (2 x 8.6 mg) PO BID 12/14/23 01/25/24 01/24/24 Rx
laxative #2 tabs
acetaminophen 325 mg capsule 650 mg PO Q6HPRN PRN mild 01/25/24 01/25/24 Unknown History
(Tylenol) pain/fever>100
bisacodyl 10 mg rectal suppository 10 mg WI DAILYPRN PRN if mom 01/25/24 01/25/24 Unknown History
(Dulcolax (bisacodyl)) ineffective
collagenase clostridium histo. 250 1 applic topical DAILY 01/25/24 01/25/24 01/24/24 History
unit/gram topical ointment (Santyl)
magnesium hydroxide 400 mg/5 mL 30 ml PO DAILYPRN PRN if no bm x 3 01/25/24 01/25/24 Unknown History
oral suspension (Milk of Magnesia) days
multivitamin (Daily-Marcia tablet) 1 tab PO DAILY Supplement 01/25/24 01/25/24 01/24/24 History
sodium phosphates 19 gram-7 118 ml WI DAILYPRN PRN if dulcolax 01/25/24 01/25/24 Unknown History
gram/118 mL enema (Fleet Enema) is ineffective
linezolid 600 mg tablet 600 mg PO BID 6 days #12 tabs 02/02/24 Unknown Rx
metformin 1,000 mg tablet 1,000 mg PO BID@0800,1700 #60 tabs 02/02/24 Unknown Rx
Active Medications
Generic Name Dose Route Start Last Admin
Trade Name Freq PRN Reason Stop Dose Admin
Acetaminophen 650 mg 01/25/24 23:20 02/01/24 22:05
Acetaminophen 325 Mg Tablet PO 02/22/24 23:19 650 mg
Q6HPRN PRN Administration
mild pain/fever>101
Aspirin 81 mg 01/25/24 21:33 02/03/24 08:33
Aspirin 81 Mg (Enteric Coated) Tablet PO 02/22/24 21:32 81 mg
BID OFELIA Administration
Atorvastatin Calcium 40 mg 01/25/24 22:00 02/02/24 20:12
Atorvastatin (Lipitor) 40 Mg Tablet PO 02/22/24 21:59 40 mg
HS OFELIA Administration
Collagenase 0 applic 02/03/24 08:00 02/03/24 08:34
Collagenase Ointment 30 Gram Tube TOPICAL 03/02/24 07:59 1 applic
DAILY OFELIA Administration
Dextrose 12.5 grams 01/25/24 21:33
Dextrose 50% (0.5 Grams/Ml) 50 Ml Syringe IV 02/22/24 21:32
[id number] PRN
hypoglycemia
Protocol
Digoxin 125 mcg 01/26/24 12:00 02/02/24 12:30
Digoxin 125 Mcg Tablet PO 02/23/24 11:59 125 mcg
NOON OFELIA Administration
Diphenhydramine HCl 25 mg 01/25/24 21:33 01/25/24 22:46
Diphenhydramine 50 Mg/Ml 1 Ml Vial IV 02/22/24 21:32 25 mg
Q4HPRN PRN Administration
Itching / Hives
Docusate Sodium 100 mg 01/25/24 21:33 02/03/24 08:34
Docusate Sodium 100 Mg Capsule PO 02/22/24 21:32 Not Given
BID OFELIA
Enoxaparin Sodium 40 mg 01/26/24 18:00 02/02/24 18:19
Enoxaparin Sodium 40 Mg/0.4 Ml Syringe SC 02/23/24 17:59 40 mg
QPM OFELIA Administration
Furosemide 80 mg 01/26/24 08:00 02/03/24 08:35
Furosemide 100 Mg (10 Mg/Ml) 10 Ml Vial IV 02/23/24 07:59 80 mg
BID AT 0800,1600 OFELIA Administration
Gabapentin 300 mg 01/25/24 21:33 02/03/24 08:36
Gabapentin 300 Mg Capsule PO 02/22/24 21:32 300 mg
BID OFELIA Administration
Glucagon 1 mg 01/25/24 21:33
Glucagon 1 Mg Vial IM 02/22/24 21:32
PRN PRN
hypoglycemia
Protocol
Insulin Glargine 15 units/ 0.15 mls @ 0 mls/hr 01/28/24 18:00 02/02/24 18:19
Device SC 02/24/24 17:59 0.15 mls
QPM OFELIA Administration
As Directed
Insulin Aspart 0 units 01/29/24 16:30 02/03/24 08:32
Insulin Aspart Moderate Resistance 300 Units/3 Ml Pen.Injctr SC 02/26/24 16:29 Not Given
AC OFELIA
Protocol
Levothyroxine Sodium 125 mcg 01/26/24 06:00 02/03/24 04:42
Levothyroxine 125 Mcg Tablet PO 02/23/24 05:59 125 mcg
DAILY @ 0600 OFELIA Administration
Linezolid 600 mg 01/30/24 20:00 02/03/24 08:33
Linezolid 600 Mg Tablet PO 600 mg
BID OFELIA Administration
Meropenem 1,000 mg 01/30/24 12:00 02/03/24 04:42
Meropenem 1,000 Mg/20 Ml Vial IV 1,000 mg
Q8H OFELIA Administration
Metformin HCl 1,000 mg 02/02/24 08:00 02/03/24 08:33
Metformin 1000 Mg Regular Release Tablet PO 03/01/24 07:59 1,000 mg
BID@0800,1700 OFELIA Administration
Metoprolol Succinate 25 mg 01/26/24 08:00 02/03/24 08:36
Metoprolol 25 Mg Extended Release Tablet PO 02/23/24 07:59 25 mg
DAILY OFELIA Administration
Miconazole Nitrate 0 applic 01/25/24 23:00 02/03/24 08:37
Miconazole Powder Bottle TOPICAL 02/22/24 22:59 1 applic
BID OFELIA Administration
Montelukast Sodium 10 mg 01/26/24 08:00 02/03/24 08:36
Montelukast Sodium 10 Mg Tablet PO 02/23/24 07:59 10 mg
DAILY OFELIA Administration
Morphine Sulfate 2 mg 01/25/24 21:33 01/30/24 20:24
Morphine 2 Mg/Ml Syringe IV 02/08/24 21:32 2 mg
Q4HPRN PRN Administration
Severe Pain
Oxycodone HCl 10 mg 01/25/24 21:33 02/01/24 20:28
Oxycodone 10 Mg Regular Release Tablet PO 02/08/24 21:32 10 mg
Q6HPRN PRN Administration
Moderate Pain
Pantoprazole Sodium 40 mg 01/26/24 08:00 02/03/24 08:31
Pantoprazole 40 Mg Delayed Release Tablet PO 02/23/24 07:59 40 mg
DAILY OFELIA Administration
Potassium Chloride 20 meq 01/25/24 21:33 02/03/24 08:33
Potassium Chloride 20 Meq Extended Release Tablet PO 02/22/24 21:32 20 meq
BID OFELIA Administration
Sennosides 17.2 mg 01/25/24 21:33 02/03/24 08:34
Sennosides (Senokot) 8.6 Mg Tablet PO 02/22/24 21:32 Not Given
BID OFELIA
Sertraline HCl 50 mg 01/25/24 22:00 02/02/24 20:12
Sertraline 50 Mg Tablet PO 02/22/24 21:59 50 mg
HS OFELIA Administration
Sodium Chloride 0 flush 01/25/24 22:00 02/02/24 16:27
Sodium Chloride 0.9% (Flush) Syringe IV 02/22/24 21:59 2 flush
PER PROTOCOL OFELIA Administration
Sterile Water 20 ml 01/30/24 12:00 02/03/24 04:41
Sterile Water For Injection 20 Ml Vial IV 02/27/24 11:59 20 ml
Q8H OFELIA Administration
Verapamil HCl 240 mg 01/26/24 08:00 02/03/24 08:31
Verapamil 240 Mg (Extended Release) Tablet PO 02/23/24 07:59 240 mg
DAILY OFELIA Administration
Review of Systems
-
History Source: Patient and Records
All Other Systems: Reviewed and Negative
Constitutional: Reports Weight Loss (Reports intentional weight loss without loss of appetite); Denies Fever, Night Sweats or Chills
EENT: Reports No Symptoms
Respiratory: Reports Trouble Breathing
Cardiac: Reports No Symptoms
GI: Reports No Symptoms
Breast: Reports No Symptoms
: Reports No Symptoms
Musculoskeletal: Reports Muscle Weakness
Neuro: Reports No Symptoms
Endocrine: Reports No Symptoms
Hematologic/Lymphatic: Reports No Symptoms; Denies Swollen Glands
Allergy / Immunology: Reports No Symptoms
Psych: Reports No Symptoms
Physical Exam
-
General: Other (Morbid obesity)
HEENT: Moist Mucous Membranes; Negative Jaundice
Cardiology: Normal Sinus Rhythm, S1 and S2
Pulmonary: Other (decreased anteriorly)
GI: Soft and Normal Bowel Sounds
Genito-Urinary: Deferred by me
Musculoskeletal: No Clubbing, No Cyanosis and Other (Left heel wound)
Extremities: Edema; Negative Phlebitic Signs
Neurology: Non Focal
Skin: Warm and Dry
Hematologic / Lymphatic: No Lymphadenopathy
Psych: Calm and Intact Judgement/Insight
Labs
Lab Results
WBC 5.3 10^3/uL (4.8-10.8) 02/03/24 04:37
RBC 3.60 10^6/uL (4.20-5.40) L 02/03/24 04:37
Hgb 9.5 g/dL (12.0-16.0) L 02/03/24 04:37
Hct 30.0 % (37.0-47.0) L 02/03/24 04:37
MCV 83.3 fL (81.0-99.0) 02/03/24 04:37
MCH 26.4 pg (27.0-31.0) L 02/03/24 04:37
MCHC 31.7 g/dL (33.0-37.0) L 02/03/24 04:37
RDW 16.5 % (11.5-14.5) H 02/03/24 04:37
Plt Count 224 10^3/uL (130-400) 02/03/24 04:37
MPV 9.4 fL (7.4-10.4) 02/03/24 04:37
Abs Immat Gran (auto) 0.0 10^3/uL (0-0.05) 02/03/24 04:37
Absolute Neuts (auto) 3.6 10^3/uL (1.4-6.5) 02/03/24 04:37
Absolute Lymphs (auto) 0.7 10^3/uL (1.2-3.4) L 02/03/24 04:37
Absolute Monos (auto) 0.6 10^3/uL (0.1-0.6) 02/03/24 04:37
Absolute Eos (auto) 0.3 10^3/uL (0-0.7) 02/03/24 04:37
Absolute Basos (auto) 0.1 10^3/uL (0-0.2) 02/03/24 04:37
Immature Gran % 0.8 % (0-0.5) H 02/03/24 04:37
Neutrophils % 67.8 % (42.2-75.2) 02/03/24 04:37
Lymphocytes % 13.9 % (20.5-51.1) L 02/03/24 04:37
Monocytes % 10.5 % (1.7-9.3) H 02/03/24 04:37
Eosinophils % 5.9 % (0-6) 02/03/24 04:37
Basophils % 1.1 % (0-2) 02/03/24 04:37
Creatinine 0.9 mg/dL (0.6-1.0) 02/03/24 04:37
Vital Signs
Vital Signs
Temp Pulse Resp BP Pulse Ox
97.6 F 68 19 99/45 98
02/03/24 07:30 02/03/24 06:00 02/03/24 06:00 02/03/24 06:00 02/03/24 06:00
--- NOTE | 2024-02-03 09:15 | CM ---
Addendum entered by Gisele Eng 02/03/24 09:31:
[facility]
Original Note:
notified that the IV abx delivery was delayed until today; will be delivered by 1pm. I spoke with [facility] who advised that the medication is out for delivery today by 1pm and RN will be in the home by 1pm to do additional medication
teaching. [facility] RN also scheduled for visit today for wound care and family teaching.
Call to son to update him regarding plan. Transport via W/C van scheduled for 11am pickle sorter; family is home and prepared for pt's return home. TT to IMU RN with confirmation of plan.
Plan: Discharge via w/c van at 11am today. [facility] and [facility] on board for start of care today.
--- NOTE | 2024-02-03 11:58 | PTCARENOTE ---
Discharge instructions reviewed with patient. Visiting nurse and home IV nurse waiting for patient at residence. (R) PICC remains. Oxygen tank and IV abx delivered to patient's residence. Pt discharged to home by Ambulance Stretcher via Acute Care.
--- NOTE | 2024-02-03 14:47 | W.PN.HOSP.TC ---
Today's Communication/Plan
-
d/c home with HH
Assessment / Plan
Assessment / Plan
1. Acute hypoxic respiratory failure
Presumed anaphylactic reaction to Zosyn
-Required IV Benadryl/epi in ER
-Required BiPAP support
-Patient charged on home oxygen
2. Bilateral heel diabetic wound
Peripheral vascular disease
-L foot X-ray noted diffuse soft tissue swelling about the foot. Large posterior heel soft tissue wound.
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
-debridement - completed on 01/29/24
-Bone Biopsy performed on 01/29/24 and results are pending
-arterial US noted Left toe brachial index measures 0.37, compared to 0.59 on prior. Right toe brachial index measures 0.37, compared to 0.34 on prior study.
-Vascular surgery involved in care and patient taken to the OR and underwent right lower extremity diagnostic arteriography
-ID started patient on meropenem 1000 mg IV q8H and Linezolid 600 PO BID through 03/11/24
3. Left groin mass
-Found on MRI pelvis, 11.6 cm hypervascular soft tissue mass
-Oncology consulted and patient will get an outpatient IRAD biopsy outpatient basis
4. Acute on Chronic HFpEF, improved
Pulmonary Hypertension
Valvular Heart Disease
-Patient was provided IV lasix, not on home med
- Echo done last in November with normal LVEF, mitral / tricuspid regurg.
Paroxysmal atrial fibrillation -on digoxin/metoprolol
COPD
IDDM -hemoglobin A1c of 8.
Hypothyroidism
s/p L Reverse Shoulder Arthroplasty on 12/12/23 - f/u with ortho in office
Morbid Obesity due to excess calories, BMI 44
Incidentaloma
DVT Prophylaxis: Lovenox
Code Status: Full
More than 30 minutes spent in discharge including
Final examination of the patient
Summarizing hospital stay
Instructions for continuing care to all relevant caregivers
Preparation of discharge records, prescriptions, and referral forms
Total time spent (in minutes): 39 mins
Anticipated Discharge: Today
Subjective/Interval History
-
Date of Service: February 03, 2024
no new problems overnight
Objective Data
-
Labs:
Laboratory Results
02/03/24
04:37
WBC 5.3
Hgb 9.5 L
Hct 30.0 L
Plt Count 224
Sodium 140
Potassium 4.8
Chloride 103
Carbon Dioxide 29
BUN 22 H
Creatinine 0.9
Glucose 108 H
Calcium 8.7
Total Bilirubin 0.6
AST 19
ALT < 10
Alkaline Phosphatase 95
Vital Signs:
Vital Signs
Temp Pulse Resp BP Pulse Ox
97.0 F 72 19 94/65 94
02/03/24 11:55 02/03/24 11:00 02/03/24 11:00 02/03/24 11:00 02/03/24 11:00
I&O
02/02/24 02/03/24 02/04/24
06:59 06:59 06:59
Intake Total 620 / 620
Output Total 1650 / 1650
Balance -1030 / -1030
Review of Systems
-
Respiratory: Reports No Symptoms
Cardiac: Reports No Symptoms
Abdomen/GI: Reports No Symptoms
Physical Exam
-
General: Negative Appears in Distress
HEENT: Oxygen
Respiratory: Clear to Auscultation
GI: Soft, Nontender and Nondistended
Skin: Warm and Dry
Neuro: Awake, Alert and Oriented
--- NOTE | 2024-02-05 14:29 | W.DCSUMMARY ---
Documented by User: Krishna Godwin MD, Resident 02/05/24 16:14
Discharge Summary
Discharge Data
Date of Admission: 01/25/24
Date of Discharge: 02/05/24
-
Pending Results: No
Hospital Course
Discharging Physician : Mahenrda Borrego & Krishna Hernandez
Disposition : Home
Primary care physician : Betsy Quintanilla
Principal Discharge diagnosis : Bilateral Heel Diabetic Wound
Chronic Discharge diagnosis : Left groin mass, Acute on Chronic HFpEF,
Hospital Course : 73y F with PMH significant for ASCVD, HTN and DM-II, Paroxysmal A-Fib, Chronic HFpEF, and Asthma/COPD presented to ED for on 01/25/24, presented to the ED with increased pain and drainage from her left heel. She has a past
medical history of DM and is currently being followed by Podiatrists Dr. Joy and Dr. Galarza for treatment of her left heel wound. No fever, chills, nausea, vomiting. She was also noted to have an allergic reaction to Zosyn and was treated
with epinephrine, benadryl, bipap, and 120 mg of lasix. Pt also allergic to Levaquin, sulfa, and vancomycin. on 01/26/24, arterial u/s negative for DVT and noted Left toe brachial index measures 0.37, compared to 0.59 on prior. Right toe brachial
index measures 0.37, compared to 0.34 on prior study. vascular CS for worsening L PAD. on 01/27/24, debridement is planned. on 01/29/24 left heel excisional debridement with bone biopsy of the left calcaneus was performed. s/p OR debridement with Pod,
hold atb until able to get bx cx in order to maximize culture yield. on 01/29, Infectious disease started the patient on Meropenem and Linezolid 6 weeks each through 03/11 after wound culture of the left heel showed growth of polymicrobial bacteria.
Pt was given wound care instructions, vitals are stable, then discharged home. Advised to follow up to check Hgb levels every 3 months at pcp office.
On lower extremity CT on 01/29 an incidental mass was found in the left groin area. Then an MRI of the pelvic groin was performed on 02/01 and showed large 11.6 cm hypervascular soft tissue mass. oncology noted that patient was to follow up for
further instructions.
Important imaging findings :
01/24: Foot xray left
IMPRESSION:
No acute fracture or dislocation. Scattered mild to moderate degenerative changes. Mild to moderate plantar calcaneal enthesopathy. Diffuse soft tissue swelling about the foot. Large posterior heel soft tissue wound. No alvarado erosions identified. No
convincing radiographic evidence for active osteomyelitis. MRI would be of greater sensitivity. Scattered vascular calcifications.
01/25- Ultrasound peripheral arteries
IMPRESSION:
1. Noncompressible arteries bilaterally, likely artificially elevating measured ankle-brachial indices.
2. Left toe brachial index measures 0.37, compared to 0.59 on prior. Abnormal spectral Doppler waveforms throughout the arteries of the left lower extremity are suggestive of aortoiliac inflow disease. Mild stenosis within the common femoral artery.
No flow demonstrated within the posterior tibial artery.
3. Right toe brachial index measures 0.37, compared to 0.34 on prior study. Monophasic waveform within the popliteal and infrapopliteal arteries are suggestive of popliteal and infrapopliteal disease.
4. Large hypoechoic mass within the left groin, measuring 6.5 cm in greatest dimension, with internal vascularity. This may be benign or malignant, further evaluation is recommended with CT examination of the abdomen and pelvis.
01/26- MRI
IMPRESSION: Soft tissue defect involving the posterior heel, extending to the posterior bony margin of the calcaneus.
01/29- lower extremity CT w/IV contrast
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 Adjacent probable enlarged lymph node. Stable from 2019 study. Extension of above mass not completely excluded but seems less likely.
Moderate edematous change of the soft tissues of the left thigh. Progressed
Stable pelvic fluid collection from 2019 suggesting is benign. This may be a seroma or lymphocele.
02/01 -MR Pelvis W/o & With Contrast
1. LARGE 11.6 cm HYPERVASCULAR SOFT TISSUE MASS in the left groin and smaller soft tissue masses in the more inferior left groin and the right groin which are new from 06/08/2021. Diagnostic possibilities are (1) lymphoma, (2) Casteleman disease,
(3) metastatic lymphadenopathy or (4) atypical reactive lymphadenopathy.
2. 8.8 cm benign-appearing chronic cyst in the left side of the pelvis.
3. Moderate to severe diffuse muscle atrophy.
4. Moderate anasarca.
Procedure findings :
Discharge Plan
-
Patient Disposition: Home (Routine Discharge)
Discharge Diagnosis/Procedures: Left Heel DM Wound, Chronic Left heel wound
Condition: Fair
Diet: Diabetic, Carb Controlled
Activity: No strenuous activity
Driving Restrictions: Not until seen by your Dr
Other Services: VN, PT and OT
Activity Restrictions/Additional Instructions:
01/24: Foot xray left
IMPRESSION:
No acute fracture or dislocation. Scattered mild to moderate degenerative changes. Mild to moderate plantar calcaneal enthesopathy. Diffuse soft tissue swelling about the foot. Large posterior heel soft tissue wound. No alvarado erosions identified. No
convincing radiographic evidence for active osteomyelitis. MRI would be of greater sensitivity. Scattered vascular calcifications.
01/25- Ultrasound peripheral arteries
IMPRESSION:
1. Noncompressible arteries bilaterally, likely artificially elevating measured ankle-brachial indices.
2. Left toe brachial index measures 0.37, compared to 0.59 on prior. Abnormal spectral Doppler waveforms throughout the arteries of the left lower extremity are suggestive of aortoiliac inflow disease. Mild stenosis within the common femoral artery.
No flow demonstrated within the posterior tibial artery.
3. Right toe brachial index measures 0.37, compared to 0.34 on prior study. Monophasic waveform within the popliteal and infrapopliteal arteries are suggestive of popliteal and infrapopliteal disease.
4. Large hypoechoic mass within the left groin, measuring 6.5 cm in greatest dimension, with internal vascularity. This may be benign or malignant, further evaluation is recommended with CT examination of the abdomen and pelvis.
01/26- MRI
IMPRESSION: Soft tissue defect involving the posterior heel, extending to the posterior bony margin of the calcaneus.
01/29- lower extremity CT w/IV contrast
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 Adjacent probable enlarged lymph node. Stable from 2020 study. Extension of above mass not completely excluded but seems less likely.
Moderate edematous change of the soft tissues of the left thigh. Progressed
Stable pelvic fluid collection from 2020 suggesting is benign. This may be a seroma or lymphocele.
02/01 -MR Pelvis W/o & With Contrast
1. LARGE 11.6 cm HYPERVASCULAR SOFT TISSUE MASS in the left groin and smaller soft tissue masses in the more inferior left groin and the right groin which are new from 06/08/2021. Diagnostic possibilities are (1) lymphoma, (2) Casteleman disease,
(3) metastatic lymphadenopathy or (4) atypical reactive lymphadenopathy.
2. 8.8 cm benign-appearing chronic cyst in the left side of the pelvis.
3. Moderate to severe diffuse muscle atrophy.
4. Moderate anasarca.
Wound Care Instructions
Bilateral knee high Erik wraps as tolerated (remove q hs). Pad linear red abundio on L foot and R ankle with silicone foam under wraps.
L heel wound-Clean with Vashe moistened gauze, Santyl ointment, cover with dry gauze and shari. Change daily and prn drainage.
R heel-Clean with Vashe moistened gauze, cover with dry gauze and shari. Change daily and prn drainage.
Elevate heels off bed with soft heel relief boots (i.e. TruVue lite boots) as tolerated; elevate heels off bed with pillows while boots off.
Pressure redistributing chair cushion (i.e. Air chair cushion).
Air mattress.
Follow up with Vascular Dr. Joy.
Follow up with property caretaker Dr. Galarza.
Follow up at wound care center if needed, call for an appointment.
Referrals:
Ingrid Segundo MD [Active] -
Obed Joy MD [Active] - 02/12/24 4:00 pm (Vascular surgery office follow-up)
Betsy Heard NP [Family Provider] - in one week
Additional Discharge Medication Instructions: continue the current dose of metformin.
Continue the current dose of IV antibiotics
F/U with vascular surgery about the MRI
Check [facility]bg in outpatient office 3 months from now
Prescriptions:
New
linezolid 600 mg Tablet
600 mg PO BID 6 Days Qty: 12 0RF
metformin 1,000 mg Tablet
1,000 mg PO BID@0800,1700 Qty: 60 0RF
Continued
albuterol sulfate 1 PUFF HFA aerosol inhaler
2 puff inhalation R Q4HPRN PRN (Reason: sob/wheezing)
atorvastatin 40 MG tablet
40 mg PO HS
fenofibrate nanocrystallized 48 MG tablet
48 mg PO HS
pantoprazole 40 MG tablet,delayed release (DR/EC)
40 mg PO DAILY
sertraline 50 MG tablet
50 mg PO HS
montelukast 10 MG tablet
10 mg PO DAILY
fluticasone propion-salmeterol [Advair Diskus] 250-50 mcg/dose Blister With Device
1 inh INHALATION R DAILYPRN PRN (Reason: sob/wheezing)
spironolactone 25 mg Tablet
25 mg PO DAILY
levothyroxine [Synthroid] 125 mcg Tablet
125 mcg PO DAILY
digoxin 125 mcg (0.125 mg) Tablet
125 mcg PO DAILY
potassium chloride 20 mEq tablet,ER particles/crystals
20 meq PO BID
insulin glargine [Lantus U-100 Insulin] 100 unit/mL solution
28 unit SC QPM Qty: 1 0RF
Rx Instructions:
reduce to 20U at pm if am glucose <100
BEGIN 12/15/23 PM
gabapentin 300 mg capsule
300 mg PO BID Qty: 10 0RF
docusate sodium [Colace] 100 mg capsule
100 mg PO BID Qty: 1 0RF
sennosides [Senokot] 8.6 mg tablet
17.2 mg PO BID Qty: 2 0RF
aspirin 81 mg Tablet,Delayed Release (Dr/Ec)
81 mg PO BID Qty: 0 0RF
verapamil 240 mg capsule,ext rel. pellets 24 hr
240 mg PO DAILY
zolpidem 12.5 mg tablet,ext release multiphase
12.5 mg PO HS
Patient Comments:
11/04/2023: last filled 09/13/23, 90 tabs for 90 days from [facility]
metoprolol succinate 25 mg Tablet Extended Release 24 Hr
25 mg PO DAILY Qty: 30 0RF
multivitamin [Daily-Marcia] Tablet
1 tab PO DAILY
magnesium hydroxide [Milk of Magnesia] 400 mg/5 mL Suspension
30 ml PO DAILYPRN PRN (Reason: if no bm x 3 days)
bisacodyl [Dulcolax (bisacodyl)] 10 mg Suppository
10 mg IN DAILYPRN PRN (Reason: if mom ineffective)
Fleet Enema 19-7 gram/118 mL Enema
118 ml IN DAILYPRN PRN (Reason: if dulcolax is ineffective)
Santyl 250 unit/gram Ointment
1 applic TOPICAL DAILY
Patient Comments:
apply to left heel
acetaminophen [Tylenol] 325 mg capsule
650 mg PO Q6HPRN PRN (Reason: mild pain/fever>100)
Discontinued
furosemide 80 mg Tablet
120 mg PO DAILY
furosemide 80 mg Tablet
80 mg PO DAILY@1400
metformin 500 mg tablet extended release 24 hr
500 mg PO BID
oxycodone 10 mg Tablet
10 mg PO BID
Discharge Orders:
Discharge Patient (As Directed); Ordered 02/02/24
Ordered By: Krishna Godwin
Discharge Date and Time
Discharge Date/Time: 02/03/24 12:00
Print Language: NICARAGUAN

Documented by User: Mahendra Caputo MD 02/06/24 18:41
Discharge Summary
Discharge Data
Date of Admission: 01/25/24
Date of Discharge: 02/03/24
Discharge Plan
-
Patient Disposition: Home (Routine Discharge)
Discharge Diagnosis/Procedures: Left Heel DM Wound, Chronic Left heel wound
Condition: Fair
Diet: Diabetic, Carb Controlled
Activity: No strenuous activity
Driving Restrictions: Not until seen by your Dr
Other Services: VN, PT and OT
Activity Restrictions/Additional Instructions:
01/24: Foot xray left
IMPRESSION:
No acute fracture or dislocation. Scattered mild to moderate degenerative changes. Mild to moderate plantar calcaneal enthesopathy. Diffuse soft tissue swelling about the foot. Large posterior heel soft tissue wound. No alvarado erosions identified. No
convincing radiographic evidence for active osteomyelitis. MRI would be of greater sensitivity. Scattered vascular calcifications.
01/25- Ultrasound peripheral arteries
IMPRESSION:
1. Noncompressible arteries bilaterally, likely artificially elevating measured ankle-brachial indices.
2. Left toe brachial index measures 0.37, compared to 0.59 on prior. Abnormal spectral Doppler waveforms throughout the arteries of the left lower extremity are suggestive of aortoiliac inflow disease. Mild stenosis within the common femoral artery.
No flow demonstrated within the posterior tibial artery.
3. Right toe brachial index measures 0.37, compared to 0.34 on prior study. Monophasic waveform within the popliteal and infrapopliteal arteries are suggestive of popliteal and infrapopliteal disease.
4. Large hypoechoic mass within the left groin, measuring 6.5 cm in greatest dimension, with internal vascularity. This may be benign or malignant, further evaluation is recommended with CT examination of the abdomen and pelvis.
01/26- MRI
IMPRESSION: Soft tissue defect involving the posterior heel, extending to the posterior bony margin of the calcaneus.
01/29- lower extremity CT w/IV contrast
== END 2024-02-03 12:00 | disposition home health service (06) | DRG 622 ==
LOC: IMU 20:01
PROVIDERS: Internal Medicine; Nurse Practitioner; Podiatrist Foot & Ankle Surgery; Radiology Neuroradiology; Surgery Vascular Surgery; ADMITTING PHYSICIAN Hospitalist; ATTENDING PHYSICIAN Hospitalist; CONSULT PHYSICIAN Internal Medicine Hematology & Oncology; CONSULT PHYSICIAN Student in an Organized Health Care Education/Training Program; EMERGENCY PHYSICIAN Emergency Medicine; FAMILY PHYSICIAN Internal Medicine; OTHER PHYSICIAN Surgery Vascular Surgery
PROC: 5A09357 Assistance with Respiratory Ventilation, Less than 24 Consecutive Hours, Continuous Positive Airway Pressure (ICD-10-PCS; 2024-01-25)
PROC: 0QBM0ZX Excision of Left Tarsal, Open Approach, Diagnostic (ICD-10-PCS; 2024-01-29)
PROC: 0JBR0ZZ Excision of Left Foot Subcutaneous Tissue and Fascia, Open Approach (ICD-10-PCS; 2024-01-29)
PROC: 02HV33Z Insertion of Infusion Device into Superior Vena Cava, Percutaneous Approach (ICD-10-PCS; 2024-01-31)
PROC: B41F1ZZ Fluoroscopy of Right Lower Extremity Arteries using Low Osmolar Contrast (ICD-10-PCS; 2024-02-01)
DX: E11.69 Type 2 diabetes mellitus with other specified complication (principal); I50.33 Acute on chronic diastolic (congestive) heart failure; L89.624 Pressure ulcer of left heel, stage 4; J96.01 Acute respiratory failure with hypoxia; J44.0 Chronic obstructive pulmonary disease with (acute) lower respiratory infection; Z68.41 Body mass index [BMI] 40.0-44.9, adult; T88.6XXA Anaphylactic reaction due to adverse effect of correct drug or medicament properly administered, initial encounter; M86.172 Other acute osteomyelitis, left ankle and foot; B96.20 Unspecified Escherichia coli [E. coli] as the cause of diseases classified elsewhere; B95.2 Enterococcus as the cause of diseases classified elsewhere; D64.9 Anemia, unspecified; E03.9 Hypothyroidism, unspecified; E78.00 Pure hypercholesterolemia, unspecified; I11.0 Hypertensive heart disease with heart failure; I25.10 Atherosclerotic heart disease of native coronary artery without angina pectoris; I48.0 Paroxysmal atrial fibrillation; I89.0 Lymphedema, not elsewhere classified; E66.01 Morbid (severe) obesity due to excess calories; I27.20 Pulmonary hypertension, unspecified; I08.1 Rheumatic disorders of both mitral and tricuspid valves; F10.11 Alcohol abuse, in remission; M77.30 Calcaneal spur, unspecified foot; R19.09 Other intra-abdominal and pelvic swelling, mass and lump; J30.81 Allergic rhinitis due to animal (cat) (dog) hair and dander; I95.9 Hypotension, unspecified; G47.00 Insomnia, unspecified; E27.9 Disorder of adrenal gland, unspecified; M62.50 Muscle wasting and atrophy, not elsewhere classified, unspecified site; Q27.9 Congenital malformation of peripheral vascular system, unspecified; L71.9 Rosacea, unspecified; T36.0X5A Adverse effect of penicillins, initial encounter; Y92.239 Unspecified place in hospital as the place of occurrence of the external cause; Z96.612 Presence of left artificial shoulder joint; Z82.49 Family history of ischemic heart disease and other diseases of the circulatory system; Z87.891 Personal history of nicotine dependence; Z90.49 Acquired absence of other specified parts of digestive tract; I25.2 Old myocardial infarction; Z87.01 Personal history of pneumonia (recurrent); Z79.4 Long term (current) use of insulin; Z88.0 Allergy status to penicillin; Z95.5 Presence of coronary angioplasty implant and graft; Z88.1 Allergy status to other antibiotic agents; Z88.2 Allergy status to sulfonamides; Z79.890 Hormone replacement therapy; Z79.51 Long term (current) use of inhaled steroids; Z79.84 Long term (current) use of oral hypoglycemic drugs; Z87.440 Personal history of urinary (tract) infections; Z79.01 Long term (current) use of anticoagulants
CPT/HCPCS: 88304; 88311; 36140; 71045; 72197; 73630; 73701; 73723; 74178; 75710; 80048; 80053; 82784; 82785; 82962; 83036; 83735; 84443; 85025; 85027; 85610; 85730; 87070; 87075; 87077; 87176; 87186; 87205; 93005; 93922; 93925; 93970; 94640; 96365; 96372; 96375; 97163; 97167; 97530; 99285; A9575; C1769; C1894; J2185; Q9967

== ENCOUNTER 2024-02-04 19:51 | Inpatient (IN) | payer MEDICARE, OTHER, SELFPAY ==
[2024-02-04] VITALS (7 sets, daily range): BP systolic 116–129; BP diastolic 54–94; BMI 44.9; BMI 44.0; BMI 43.8
--- NOTE | 2024-02-04 18:31 | ED.GENMED ---
History of Present Illness
General
Chief Complaint: Weakness
Source: patient and records
Time Seen by Provider: 02/04/24 18:01
History of Present Illness
History of Present Illness:
This patient is a 73-year-old female who presents emergency department after discharge to home with home health yesterday. She was here in the emergency department and then admitted with a presumed anaphylactic reaction to Zosyn associated with
bilateral diabetic wounds of her heels, osteomyelitis requiring debridement, left groin mass, etc. Patient states that she is upset she needs to go to rehab but recognizes that she cannot be cared for at home. She denies any new symptoms since
discharge yesterday and has been able to take her medications this morning.
Past History
Past History
ED Past Medical History: Arrthythmia (Atrial fibrillation), Asthma, CAD, CHF, HTN, Hypercholesterolemia, IDDM, VT, Hypothyroidism and Other (PNA, Cellulitis, Chronic Lymph edema)
ED Past Surgical History: Cardiac (cardioversion, Stents X 2), Cholecystectomy and Other
Social History
Tobacco: Former smoker
Alcohol: Daily (Vodka 1 large glass)
Drug: None
Personal:
Living: alone
Employment: Retired
Family History
Family History: Hypertension
Phy Exam
Physical Exam
Physical Exam:
GENERAL: Alert , in no apparent distress
EYE: pupils equal and reactive
NECK: Supple, no significant adenopathy.
ENT: o/p clr, mmm.
CARDIAC: Irreg irreg
LUNGS: Clear breath sounds bilaterally, no acute respiratory distress, no wheezes/rales/rhonchi
ABDOMEN: Soft, without focal tenderness, no r/g
NEUROLOGICAL: Alert and oriented, generally nonfocal
SKIN: Warm and dry, heel wounds dressed
MUSCULOSKELETAL: 2+ bilat le edema, well perfused.
PSYCH: Normal and appropriate interaction.
Course
Orders/Labs/Results
Orders:
Orders
02/04/24 Breakfast
2000 calorie (17 carb) Diabetic
At Your Request: Full Participation
02/04/24 18:35
Pt Eval And Treat Urgent
Activity Level: Bedrest
02/04/24 18:39
Meropenem [Merrem] 1,000 mg IV NOW STA
02/04/24 19:16
Admit/Transfer Patient As Directed
Co-Sign Provider:
Level of Care: Inpatient admission
Assign to:: Telemetry
Physician / Group: rafael
Diagnosis: diabetic foot ulcer
Reason for Telemetry: Arrhythmia
Date to Stop Telemetry: 02/07/24
Time to Stop Telemetry: 11:00
Reason for Hospitalization: diabetic foot ulcer
Expected length of stay greater than two midnights?: Yes
ELOS- Estimated Length of Stay in days: 3
I certify the patient meets the requirements for IP care: Yes
PRN Pain Medication Management As Directed
May give lesser potent ordered pain med per pt: Yes
preference::
Protocol:: Medication orders for pain may be administered in a
manner that supports deferring to patient preference
when the pt is:
- Requesting an ordered lesser potent pain medication.
Least to most potent pain medications are defined
as: acetaminophen < NSAID < tramadol < opioids
(morphine, oxycodone, hydromorphone).
- Requesting a lesser dose of the same medication IF
ORDERED.
- Requesting a less intrusive route of administration
if both routes are prescribed by the provider (PO <
IV).
02/04/24 19:19
Code Status As Directed
Resuscitation Status: Full Code
02/04/24 19:24
Complete Blood Count/With Diff Urgent
Comprehensive Metabolic Panel Urgent
02/04/24 19:26
Chest [CR Chest - 2 Views ] Urgent
Comment:
Reason For Exam: PICC placement
02/04/24 19:30
Linezolid [Zyvox] 600 mg PO NOW STA
02/04/24 21:14
Acetaminophen [Tylenol] 650 mg PO Q6HPRN PRN
Albuterol [ProAIR HFA INHALER] 2 puff INH R Q4HPRN PRN
Aspirin Low Dose EC [Aspir Low (Enteric Coated)] 81 mg PO BID
Dextrose 50%-Water [Dextrose 50% Syringe] 12.5 grams IV [id number] PRN
Docusate Sodium [Colace] 100 mg PO BID
Fluticasone/Salmeterol 115/21 [Advair Hfa 115/21 Mcg Inhaler] 2 puff INH R DAILYPRN PRN
Gabapentin [Neurontin] 300 mg PO BID
Glucagon [GlucaGen] 1 mg IM PRN PRN
Potassium Chloride [KCl] 20 meq PO BID
Sennosides [Senokot] 17.2 mg PO BID
02/04/24 21:14
Activity As Directed
Activity Level: As Tolerated
Bedside Glucose Monitoring As Directed
Frequency: AC&HS
Additional Instructions:: Change to q6h if pt on TPN, tube feeding or not eating
Intake/ Output As Directed
Frequency: Per unit guidelines
Vital Signs As Directed
Frequency: Other
Additional Instructions:: Q12 or per unit guidelines if more frequent.
Weight As Directed
Frequency: Daily
Type of Scale: Standing Scale
Comment: Daily morning weight. If unable to stand, use balanced bed scale.
Weight As Directed
Frequency: Once
Type of Scale: Standing Scale
Comment: Upon Admission. If unable to stand, use balanced bed scale.
Pulse Ox/cont/shift [RESP] Routine
Quantity: 1
Special Instructions: Daily pulse oximetry at rest. If greater than 92% at rest also obtain pulse oximetry
while ambulating as tolerated.
Ot Eval And Treat Routine
DX Deep Vein Thrombosis Video Routine
02/04/24 22:00
Atorvastatin [Lipitor] 40 mg PO HS
Fenofibrate [Tricor] 48 mg PO HS
Sertraline HCl [Zoloft] 50 mg PO HS
Zolpidem Tartrate [Ambien] 10 mg PO HS
02/05/24 04:00
Meropenem [Merrem] 1,000 mg IV Q8H
02/05/24 06:00
Basic Metabolic Panel IN AM
Complete Blood Count/No Diff IN AM
Digoxin IN AM
Magnesium IN AM
Levothyroxine [Synthroid] 125 mcg PO DAILY @ 0600
02/05/24 07:30
Insulin Aspart Corrective Low [Novolog Flexpen-Low Resistance] See Protocol SC AC
02/05/24 08:00
Collagenase [Santyl Ointment] 1 applic TOPICAL DAILY
Digoxin [Lanoxin] 125 mcg PO DAILY
Linezolid [Zyvox] 600 mg PO BID
METFORMIN HCl [Glucophage] 1,000 mg PO BID@0800,1700
Metoprolol Xl [Toprol Xl] 25 mg PO DAILY
Montelukast Sodium [Singulair] 10 mg PO DAILY
Pantoprazole [Protonix] 40 mg PO DAILY
Spironolactone [Aldactone] 25 mg PO DAILY
Verapamil Extended Release [Calan Extended Release] 240 mg PO DAILY
02/05/24 18:00
Enoxaparin Sodium [Lovenox] 40 mg SC QPM
02/06/24 06:00
Basic Metabolic Panel IN AM
Complete Blood Count/No Diff IN AM
02/07/24 06:00
Basic Metabolic Panel IN AM
Complete Blood Count/No Diff IN AM
02/07/24 11:00
DC Protocol for Telemetry ONCE
02/08/24 06:00
Complete Blood Count/No Diff IN AM
02/09/24 06:00
Complete Blood Count/No Diff IN AM
Abnormal Lab Results
02/04/24
19:24
RBC 3.79 L 10^6/uL
(4.20-5.40)
Hgb 10.1 L g/dL
(12.0-16.0)
Hct 32.0 L %
(37.0-47.0)
MCH 26.6 L pg
(27.0-31.0)
MCHC 31.6 L g/dL
(33.0-37.0)
RDW 16.3 H %
(11.5-14.5)
Absolute Lymphs (auto) 0.6 L 10^3/uL
(1.2-3.4)
Immature Gran % 0.6 H %
(0-0.5)
Neutrophils % 79.4 H %
(42.2-75.2)
Lymphocytes % 9.2 L %
(20.5-51.1)
BUN 20 H mg/dl
(7-17)
Glucose 121 H mg/dl
(70-99)
Total Protein 6.1 L g/dl
(6.3-8.2)
Albumin 3.3 L g/dl
(3.5-5.0)
02/04/24 19:24
02/04/24 19:24
Vital Signs
Initial and Last Documented VS:
Initial Vital Signs
Temp
97.6 F
02/04/24 17:51
Last Documented Vital Signs
Temp Pulse Resp BP Pulse Ox
97.8 F 92 18 116/54 95
02/04/24 23:00 02/04/24 23:00 02/04/24 23:00 02/04/24 23:00 02/04/24 23:00
*Critical Care Note
Total Time (30-74mins, 75-104mins- exclusive of procedures): Not Applicable
Update Note
Update Note:
Patient presents to the Emergency Department with inability to care for self at home
Number and Complexity of Problems Addressed at the Encounter
� Chronic conditions affecting care:
� Acute Exacerbation and/or Progression of Chronic Illness:
� Differential Diagnosis includes: But not limited to osteomyelitis, continued infection, etc.
Amount and/or Complexity of Data to be Reviewed and Analyzed
� I performed an independent evaluation of and my interpretation is:
EKG:
CT:
Xrays:
Laboratory Studies:
Other:
� Review of other/old records reveals: Review of discharge summary and hospital stay from most recent visit, discharged yesterday, see history for further details
� Clinical information was obtained by an independent historian:
� Prescriptions/Medications Considered but not given:
� Further testing considered but not performed:
Risk of Complications and/or Morbidity or Mortality of Patient Management
� Social determinants of health affecting care:
� Discussion with other providers (PCP, Hospitalists, Consultants, etc):
� Escalation of care including admission/observation vs risk of discharge considered: 6:32 PM text sent to hospitalist Dr Christy for admission, he will send to pyrometer temperature regulator. Pt stable, cm and pt c/s and abx ordered.
ED Attending Note
-
Portions of this chart may have been created with voice recognition software.� Occasional wrong word or��sound alike� substitutions may have occurred due to the inherent limitations of voice recognition software.
Discharge Plan
Departure
Patient Disposition: Admit
Date of Disposition: 02/04/24
Time of Disposition: 18:42
Admit to: Med/Surg
Presentation/result/management discussed w/ accepting MD/DO: Hospitalist
Condition: Good
Discharge Problem:
Osteomyelitis
Interventions
Interventions:
*Risk Screen - Suicide Last Done: 02/04/24 17:51
*General Assessment Last Done: 02/04/24 17:51
*Neglect/Abuse Screening Last Done: 02/04/24 17:51
ED- Fall Risk Assessment Last Done: 02/04/24 20:46
*ED COVID-19 Vaccine History Last Done: 02/04/24 20:46
*Nursing Disposition Last Done: 02/04/24 20:46
ED- Cardiac Assessment Last Done: 02/04/24 20:46
ED- Neurological Assessment Last Done: 02/04/24 18:00
ED- Pulmonary Assessment Last Done: 02/04/24 18:00
Discharge Date and Time
Discharge Date/Time: 02/04/24 20:47
--- NOTE | 2024-02-04 18:52 | HPS.HSE ---
Family Physician
-
Family Physician: Betsy Heard
Chief Complaint
-
b/l LE wound
History of Present Illness
73-year-old female with PMH for B/L diabetic wound, PVD, CHF, atril fib, COPD, IDDM, hypothyroidism presented to us as she was not able to take care of herself at home. patient was discharged home yesterday on iv abx for diabetic ulcers. patient
needed assistance with everything. she was not able to walk without assistance even to bathroom. patient denied fever, chills, chest pain, sob. denied TOUSSAINT, dizzy or syncopal episode. denied abdominal pain,n,v,d. denied dysuria or hematuria.
Medical History
Past Medical History
Past Medical History: Reports Other
Additional Past Medical History:
Hypothyroidism
Iron deficiency anemia
H. pylor paroxysmal A-fib stage III chronic disease
Type 2 diabetes
Chronic systolic heart failure
Asthma coronary artery disease hyperlipidemia
Lymphedema
Reported cellulitis
Hypertension
Pulmonary artery hypertension
Peripheral vascular disease
Past Surgical History: Reports Other
Additional Past Surgical History:
Cholecystectomy
kidney stones removal
Tonsillectomy
coronary artery stent
Bladder repair
cardiac ablation
cardioversion
skin cancer removed
Shoulder repair
Watchman procedure
Social History
Tobacco: Former Smoker
Alcohol: Former
Drug: None
Personal: Single
Living: With Family
Family History
Family History: Not pertinent
Allergies / Home Medications
Allergies reflects when Allergies were last updated in [employer].
Home Medications with original date entered in [employer]
Allergy/Medication List:
Allergies
Allergy/AdvReac Type Severity Reaction Status Date / Time
piperacillin Allergy Severe Anaphylaxis, Verified 02/04/24 17:56
acute
hypoxemic
resp f,
hypotensitching
01/25/24
cat dander Allergy ASTHMA/SOB Verified 02/04/24 17:56
levofloxacin Allergy Hives Verified 02/04/24 17:56
[From Levaquin Leva-Carlos]
Penicillins Allergy Shortness Verified 02/04/24 17:56
of Breath
Sulfa (Sulfonamide Allergy Hives Verified 02/04/24 17:56
Antibiotics)
vancomycin [Vancomycin] Allergy Rash/red Verified 02/04/24 17:56
tino
syndrome
Home Medications
albuterol sulfate 90 mcg/actuation aerosol inhaler 2 puff inhalation R Q4HPRN PRN sob/wheezing 09/27/19
atorvastatin 40 mg tablet 40 mg PO HS High cholesterol 04/23/21
fenofibrate nanocrystallized 48 mg tablet 48 mg PO HS High cholesterol 07/13/21
montelukast 10 mg tablet 10 mg PO DAILY Allergies 11/30/21
pantoprazole 40 mg tablet,delayed release 40 mg PO DAILY Gastrointestinal issue 11/30/21
sertraline 50 mg tablet 50 mg PO HS Depression 11/30/21
digoxin 125 mcg (0.125 mg) tablet 125 mcg PO DAILY Heart Disease/Condition 08/22/23
fluticasone 250 mcg-salmeterol 50 mcg/dose blistr powdr for inhalation (Advair Diskus) 1 inh inhalation R DAILYPRN PRN sob/wheezing 08/22/23
levothyroxine 125 mcg tablet (Synthroid) 125 mcg PO DAILY Thyroid 08/22/23
potassium chloride 20 mEq tablet,extended release(part/cryst) 20 meq PO BID Electrolyte Repletion 08/22/23
spironolactone 25 mg tablet 25 mg PO DAILY Heart Failure 08/22/23
verapamil 240 mg 24 hr capsule,extended release 240 mg PO DAILY Blood Pressure 11/04/23
zolpidem 12.5 mg tablet,extended release,multiphase 12.5 mg PO HS Sleep 11/04/23
metoprolol succinate 25 mg tablet,extended release 24 hr 25 mg PO DAILY #30 tabs 11/06/23
aspirin 81 mg tablet,delayed release 81 mg PO BID #0 tabs 12/14/23
docusate sodium 100 mg capsule (Colace) 100 mg PO BID stool softner #1 cap 12/14/23
gabapentin 300 mg capsule 300 mg PO BID sleep/pain #10 caps 12/14/23
insulin glargine 100 unit/mL subcutaneous solution (Lantus U-100 Insulin) 28 unit (0.28 mL) SC QPM DM #1 mL 12/14/23
sennosides 8.6 mg tablet (Senokot) 17.2 mg (2 x 8.6 mg) PO BID laxative #2 tabs 12/14/23
acetaminophen 325 mg capsule (Tylenol) 650 mg PO Q6HPRN PRN mild pain/fever>100 01/25/24
bisacodyl 10 mg rectal suppository (Dulcolax (bisacodyl)) 10 mg SC DAILYPRN PRN if mom ineffective 01/25/24
collagenase clostridium histo. 250 unit/gram topical ointment (Santyl) 1 applic topical DAILY 01/25/24
magnesium hydroxide 400 mg/5 mL oral suspension (Milk of Magnesia) 30 ml PO DAILYPRN PRN if no bm x 3 days 01/25/24
multivitamin (Daily-Marcia tablet) 1 tab PO DAILY Supplement 01/25/24
sodium phosphates 19 gram-7 gram/118 mL enema (Fleet Enema) 118 ml SC DAILYPRN PRN if dulcolax is ineffective 01/25/24
linezolid 600 mg tablet 600 mg PO BID 6 days #12 tabs 02/02/24
metformin 1,000 mg tablet 1,000 mg PO BID@0800,1700 #60 tabs 02/02/24
Review of Systems
-
Constitutional: Reports No Symptoms
EENT: Reports No Symptoms
Respiratory: Reports No Symptoms
Cardiac: Reports No Symptoms
Abdomen/GI: Reports No Symptoms
: Reports No Symptoms
Musculoskeletal: Reports No Symptoms
Skin: Reports Other (b/l diabetic wound)
Neurological: Reports No Symptoms
Endocrine: Reports No Symptoms
Hematologic/Lymphatic: Reports No Symptoms
Psych: Reports No Symptoms
Physical Exam
Vital Signs
Vital Signs
Temp Pulse Resp BP Pulse Ox
97.6 F 89 16 129/94 94
02/04/24 17:58 02/04/24 17:58 02/04/24 17:58 02/04/24 17:58 02/04/24 17:58
Physical Exam
General: Well Developed, Well Nourished and No Apparent Distress
HEENT: NormoCephalic, Moist mucous membranes and Atraumatic
Respiratory: Clear
Cardiac: S1/S2 and Regular Rhythm; No Murmur or Rub
GI: Soft, Non Tender, Non Distended and Normal Bowel Sounds; No Organomegaly
Rectal: Deferred by Provider
Musculoskeletal: No Clubbing, No Cyanosis and No Edema
Skin: Rash and Other (chronic lymphedema, b/l LE wound)
Neuro: AO x 3 and Nonfocal/grossly intact
Psych: Calm
Impression/Plan
-
# Diabetic foot ulcers
# Left Heel DM Wound, Chronic L heel wound that is recently worse per patient.
# Peripheral vascular disease
-L foot X-ray noted diffuse soft tissue swelling about the foot. Large posterior heel soft tissue wound.
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
-debridement - completed on 01/29/24
-Bone Biopsy performed on 01/29/24
-arterial US noted Left toe brachial index measures 0.37, compared to 0.59 on prior. Right toe brachial index measures 0.37, compared to 0.34 on prior study.
-Vascular surgery involved in care and patient taken to the OR and underwent right lower extremity diagnostic arteriography
-ID started patient on meropenem 1000 mg IV q8H and Linezolid 600 PO BID through 03/11/24
#ambulatory dysfunction
-PT/OT consulted
#Left groin mass
-Found on MRI pelvis, 11.6 cm hypervascular soft tissue mass
-recommended Oncology and outpatient IRAD
#Chronic HFpEF
# Pulmonary Hypertension
# Valvular Heart Disease
-spironolactone continued
- Echo done last in November with normal LVEF, mitral / tricuspid regurg.
#Paroxysmal atrial fibrillation -on digoxin/metoprolol
#COPD
-nebs from home continued
-singulair continued
#IDDM -hemoglobin A1c of 8.
-lantus 28u at hs
-metformin
-sliding scale
-CHO diet
#Hypothyroidism
-levothyroxine continued
#s/p L Reverse Shoulder Arthroplasty on 12/12/23 - f/u with ortho in office
#GERD
-PPI continued
#depression
-sertraline continued
#essential htn
-verapamil continued with hold parameter
#HLD
-statin,fenofibrate continued
#Morbid Obesity due to excess calories, BMI 44
DVT Prophylaxis: Lovenox
Code Status: Full
--- NOTE | 2024-02-04 19:00 | EDRN ---
Report received, waiting on IV team to come down and look at patients PICC line att his time, hospitalist at bedside working admission.
--- NOTE | 2024-02-04 19:13 | W.PN.UPDATE ---
Update Note
Progress Note Update
Patient seen and evaluated with [facility]IR SPECIALIST. Agree with her H&P and plan.
This is a 73 y.o female who was recently admitted with osteomyelitis of the left heal and discharged to home with home health yesterday now returning due to inability to manage at home. Patient has significant co-morbidities as listed in the PA H&P
to include permanent afib s/p watchman, insulin dependent diabetes, HTN, hypothyroid, COPD, PAH, CKD 3, diastolic CHF with chronic lymphadenopathy and came in diabetic foot infection. She is s/p debridement and biopsy of the left heal with positive
pseudomonas/ecoli and gpc and MRI c/w osteomyelitis. She has peripheral arterial disease prominent on the right foot with pending intervention. She was also found to have a left groin mass. During this admission she was started on abx and is now
on meropenem and linezolid. Hospital course complicated by zosyn anaphylaxis with respirotory decline and acute on chronic CHF with hypoxic respiratory failure requiring supplemental O2. At time of discharge patient selected to return home rather
than to inpatient rehab. Family unable to care for her at home and she now returns to ED.
In ED she had stable vital signs and no acute complaints.
My focused exam showed she is without any acute distress, communicative and has no acute complaints. She is in atrial fibrillation with good rate control. Lung auscultation anteriorly was clear. Peripheral exam showed 2 + non-pitting edema
bilaterally more prominent on the left. Faint DP pulses bilaterally.
Assessment and plan:
Patient with ongoing osteo and diabetic wound infection who was discharged to home and returns essentially with ambulatory dysfunction.
1. OM/Diabetic foot infection: Admit to observation, non-tele. s/p OR, debridement and right lower extremity diagnostic arteriography 01/28. Biopsy results pending.
- Has Midline -> continue linezolid bid and meropenem 1000 mg IV q8H till 03/11.
-Vascular surgery involved in care and patient taken to the OR and underwent right lower extremity diagnostic arteriography, follow up w/ Dr. Joy pending
- PT consult
- care coordination
2. Acute on chronic diastolic CHF: Patient has chronic lymphedema but otherwise appears euvolemic. Oxygenation normal on RA.
- continue spironolactone for now.
3. Permanent AFIB
- s/p watchman, off AC
- continue digoxin, metoprolol
4. Left Groin Mass incidentally discovered on MRI, 11.6 cm hypervascular soft tissue mass
-Oncology consulted and patient will get an outpatient IRAD biopsy outpatient basis.
5. DM II
- lantus per home regimen with moderate sliding scale
- as no other acute intervention, patient can continue metformin 1000 bid
COPD, hypothyroid, depression, s/p Left shoulder arthroplasty per HAIR SPECIALIST note
DVT PPX - lovenox sq
Full Code
--- NOTE | 2024-02-04 19:30 | EDRN ---
Called xray about getting a chest xray completed to verify PICC placement prior to using it, they are off the unit and will call once back so we can get image and verify prior to giving IV antibiotics ordered.
[2024-02-04] MEDS: ZYVOX 600 MG PO (19:38)
[2024-02-04 19:40] LABS: % Basophils 0.9 % (0-2); % Eosinophils 3.1 % (0-6); % Immature Granulocytes 0.6 % (0-0.5); % Lymphocytes 9.2 % (20.5-51.1); % Monocytes 6.8 % (1.7-9.3); % Neutrophils 79.4 % (42.2-75.2); Absolute Basophils 0.1 10^3/uL (0-0.2); Absolute Eosinophils 0.2 10^3/uL (0-0.7); Absolute Lymphocytes 0.6 10^3/uL (1.2-3.4); Absolute Monocytes 0.5 10^3/uL (0.1-0.6); Absolute Neutrophils 5.4 10^3/uL (1.4-6.5); Hemoglobin 10.1 g/dL (12.0-16.0); Mean Corp Hgb Conc. 31.6 g/dL (33.0-37.0); Mean Corpuscular Hgb 26.6 pg (27.0-31.0); Mean Corpuscular Volume 84.4 fL (81.0-99.0); Mean Platelet Volume 9.4 fL (7.4-10.4); Nucleated Red Blood Cells % 0 %; Platelet Count 218 10^3/uL (130-400); Red Blood Cell Count 3.79 10^6/uL (4.20-5.40); Red Cell Dist. Width 16.3 % (11.5-14.5); White Blood Cell Count 6.8 10^3/uL (4.8-10.8)
[2024-02-04 19:57] LABS: ALT (SGPT) 12 U/L (0-35); AST (SGOT) 21 U/L (14-36); Albumin 3.3 g/dl (3.5-5.0); Alkaline Phosphatase 119 U/L (38-126); Blood Urea Nitrogen 20 mg/dl (7-17); Carbon Dioxide 29 mmol/L (22-30); Chloride 106 mmol/L (98-107); Estimated Creatinine Clearance 74 ml/min; Glucose 121 mg/dl (70-99); Potassium 4.4 mmol/L (3.5-5.1); Sodium 142 mmol/L (135-145); Total Bilirubin 0.5 mg/dl (0.2-1.3); Total Protein 6.1 g/dl (6.3-8.2); eGFR > 60.00
--- NOTE | 2024-02-04 20:09 | EDRN ---
No Delay sent to the floor.
[2024-02-04] MEDS: MERREM 1000 MG IV (20:39)
--- NOTE | 2024-02-04 20:46 | EDRN ---
Martha completed and Dr. Fitzpatrick reports that the PICC line is ok to use, gave antibiotics as ordered.
[2024-02-04 21:47] LABS: Glucose - Point of Care 120 mg/dl (70-99)
[2024-02-04] MEDS: KCL 20 MEQ PO (22:30)
[2024-02-04] MEDS: ASPIR LOW (ENTERIC COATED) 81 MG PO (22:30)
[2024-02-04] MEDS: ZOLOFT 50 MG PO (22:30)
[2024-02-04] MEDS: NEURONTIN 300 MG PO (22:30)
[2024-02-04] MEDS: SENOKOT 17.2 MG PO (22:30)
[2024-02-04] MEDS: AMBIEN 10 MG PO (22:30)
[2024-02-04] MEDS: TRICOR 48 MG PO (22:31)
[2024-02-04] MEDS: LIPITOR 40 MG PO (22:31)
[2024-02-04] MEDS: COLACE 100 MG PO (22:31)
[2024-02-05] VITALS (8 sets, daily range): BP systolic 113–132; BP diastolic 51–69; PULSE 94; O2SAT 97; BMI 43.8
[2024-02-05] MEDS: MERREM 1000 MG IV ×3 (04:10→20:32)
[2024-02-05] MEDS: STERILE WATER FOR INJECTION 20 ML IV ×3 (04:12→20:33)
[2024-02-05 04:39] LABS: Hematocrit 29.9 % (37.0-47.0); Hemoglobin 9.5 g/dL (12.0-16.0); Mean Corp Hgb Conc. 31.8 g/dL (33.0-37.0); Mean Corpuscular Volume 84.9 fL (81.0-99.0); Mean Platelet Volume 9.4 fL (7.4-10.4); Platelet Count 208 10^3/uL (130-400); Red Blood Cell Count 3.52 10^6/uL (4.20-5.40); Red Cell Dist. Width 16.7 % (11.5-14.5); White Blood Cell Count 5.5 10^3/uL (4.8-10.8)
[2024-02-05 05:08] LABS: Blood Urea Nitrogen 19 mg/dl (7-17); Calcium 9.1 mg/dl (8.4-10.2); Carbon Dioxide 28 mmol/L (22-30); Chloride 107 mmol/L (98-107); Digoxin 0.7 ng/ml (0.8-2.0); Estimated Creatinine Clearance 73 ml/min; Glucose 112 mg/dl (70-99); Potassium 4.5 mmol/L (3.5-5.1); Sodium 142 mmol/L (135-145); eGFR > 60.00
[2024-02-05] MEDS: SYNTHROID 125 MCG PO (06:03)
--- NOTE | 2024-02-05 06:51 | W.PN.HOSP.TC ---
Today's Communication/Plan
-
continue pain control
antibiotics
PT/OT
discharge planning SNF
Assessment / Plan
Assessment / Plan
Physical Exam
General: Well Developed, Well Nourished and No Apparent Distress
HEENT: NormoCephalic, Moist mucous membranes and Atraumatic
Respiratory: Clear
Cardiac: S1/S2 and Regular Rhythm; No Murmur or Rub
GI: Soft, Non Tender, Non Distended and Normal Bowel Sounds; No Organomegaly
Musculoskeletal: No Clubbing, No Cyanosis and No Edema
Skin: Rash chronic lymphedema, b/l LE wound
Neuro: AO x 3 and Nonfocal/grossly intact
Psych: Calm
73F DM foot ulcers heal osteo on IV abx PVD Lt groin mass HFpEF COPD HTN HLD afib s/p watchman Hypothyroidism Morbid obesity recently discharged return d/t need snf rehab previously recommended but refused, now agreeable.
# Diabetic foot ulcers
# Left Heel DM Wound, Chronic L heel wound that is recently worse per patient.
# Peripheral vascular disease
#MRI L foot is suggestive of osteomyelitis of posterior calcaneus
-debridement - completed on 01/29/24
-Bone Biopsy performed on 01/29/24
-arterial US noted Left toe brachial index measures 0.37, compared to 0.59 on prior. Right toe brachial index measures 0.37, compared to 0.34 on prior study.
-underwent right lower extremity diagnostic arteriography w [facility] last hospitalization
-meropenem 1000 mg IV q8H and Linezolid 600 PO BID through 03/11/24 as per ID
#ambulatory dysfunction
-PT/OT consulted
#Left groin mass
-Found on MRI pelvis, 11.6 cm hypervascular soft tissue mass
-prior hospitalization Oncology eval appreciated and outpatient IRAD follow up recommended
#Chronic HFpEF
# Pulmonary Hypertension
# Valvular Heart Disease
-spironolactone continued
- Echo done last in November with normal LVEF, mitral / tricuspid regurg.
#Paroxysmal atrial fibrillation -on digoxin/metoprolol
#COPD
-nebs from home continued
-singulair continued
#IDDM -hemoglobin A1c of 8.
-lantus 28u at hs
-metformin
-sliding scale
-CHO diet
#Hypothyroidism
-levothyroxine continued
#s/p L Reverse Shoulder Arthroplasty on 12/12/23 - f/u with ortho in office
#GERD
-PPI continued
#depression
-sertraline continued
#essential htn
-verapamil continued with hold parameter
#HLD
-statin,fenofibrate continued
#Morbid Obesity due to excess calories, BMI 44
DVT Prophylaxis: Lovenox
Code Status: Full
I spent a total of 50 minutes with the patient or on the floor. More than 50% of this time involved counseling and coordination of care.
Anticipated Discharge: 24 - 48 hours
Subjective/Interval History
-
Date of Service: February 05, 2024
Seen and examined at bedside in no acute distress resting comfortably in bed. Reports pain well controlled at this time. Denies new acute issues.
Objective Data
-
Labs:
Laboratory Results
02/04/24 02/05/24
19:24 04:16
WBC 6.8 5.5
Hgb 10.1 L 9.5 L
Hct 32.0 L 29.9 L
Plt Count 218 208
Sodium 142 142
Potassium 4.4 4.5
Chloride 106 107
Carbon Dioxide 29 28
BUN 20 H 19 H
Creatinine 0.8 0.8
Glucose 121 H 112 H
Calcium 9.0 9.1
Total Bilirubin 0.5
AST 21
ALT 12
Alkaline Phosphatase 119
Vital Signs:
Vital Signs
Temp Pulse Resp BP Pulse Ox
97.7 F 83 18 119/51 93
02/05/24 03:00 02/05/24 03:00 02/05/24 03:00 02/05/24 03:00 02/05/24 03:00
I&O
02/03/24 02/04/24 02/05/24
06:59 06:59 06:59
Intake Total 480 / 480
Output Total 160 / 160
Balance 320 / 320
[2024-02-05] MEDS: KCL 20 MEQ PO ×2 (08:14→20:32)
[2024-02-05] MEDS: ASPIR LOW (ENTERIC COATED) 81 MG PO ×2 (08:14→20:30)
[2024-02-05] MEDS: PROTONIX 40 MG PO (08:14)
[2024-02-05] MEDS: COLACE 100 MG PO (08:17)
[2024-02-05] MEDS: SINGULAIR 10 MG PO (08:17)
[2024-02-05] MEDS: GLUCOPHAGE 1000 MG PO ×2 (08:17→17:57)
[2024-02-05] MEDS: NEURONTIN 300 MG PO ×2 (08:17→20:33)
[2024-02-05] MEDS: SENOKOT 17.2 MG PO (08:17)
[2024-02-05] MEDS: ZYVOX 600 MG PO ×2 (08:18→20:33)
[2024-02-05 08:21] LABS: Glucose - Point of Care 104 mg/dl (70-99)
[2024-02-05] MEDS: NOVOLOG FLEXPEN-LOW RESISTANCE SC ×2 (08:25→12:26)
[2024-02-05] MEDS: SANTYL OINTMENT 1 APPLIC TOPICAL (08:26)
[2024-02-05] MEDS: DESENEX/MITRAZOL/ZEASORB 1 APPLIC TOPICAL ×2 (08:26→20:31)
[2024-02-05] MEDS: CALAN EXTENDED RELEASE 240 MG PO (08:29)
[2024-02-05] MEDS: LANOXIN 125 MCG PO (08:29)
[2024-02-05] MEDS: TOPROL XL 25 MG PO (08:29)
[2024-02-05] MEDS: ALDACTONE 25 MG PO (08:30)
--- NOTE | 2024-02-05 11:22 | CM ---
Reviewed the chart notes and spoke with the patient at the bedside. The patient was recently hospitalized (01/24-02/02) and discharged to home with [facility] and IV abx through [facility]. The patient's son lives with her in a two story home with
one step to enter. The patient has a stair glide, rolling walker, and home O2 through [employer]. The patient has been to [facility] in the past. The patient confirmed her pharmacy of choice is the [facility]. continues to be available
to patient/family and is monitoring medical plan for needs at discharge.
Plan: Discharge plans will depend on the patient's progress.
[2024-02-05 12:25] LABS: Glucose - Point of Care 129 mg/dl (70-99)
[2024-02-05 16:37] LABS: Glucose - Point of Care 161 mg/dl (70-99)
[2024-02-05] MEDS: LOVENOX 40 MG SC (17:56)
[2024-02-05] MEDS: LANTUS 0.28 UNITS SC (17:57)
[2024-02-05] MEDS: NOVOLOG FLEXPEN-LOW RESISTANCE 300 UNITS SC (17:57)
[2024-02-05] MEDS: COLACE PO (20:30)
[2024-02-05] MEDS: SENOKOT PO (20:33)
[2024-02-05] MEDS: AMBIEN 10 MG PO (21:43)
[2024-02-05] MEDS: ZOLOFT 50 MG PO (21:44)
[2024-02-05] MEDS: TRICOR 48 MG PO (21:44)
[2024-02-05] MEDS: LIPITOR 40 MG PO (21:44)
[2024-02-05 22:02] LABS: Glucose - Point of Care 139 mg/dl (70-99)
[2024-02-05] MEDS: TYLENOL 650 MG PO (22:31)
--- NOTE | 2024-02-06 03:16 | PTCARENOTE ---
Patient with multiple soft bowel movements earlier in the shift. Concern for possible C.Diff, talked with house provider, Stool ordered, patient placed on Enhanced precautions. Patient updated on move, patient agreeable to transfer. Patient moved to
private room, 4W 430. Report given to 4W RN.
--- NOTE | 2024-02-06 03:23 | PTCARENOTE ---
Rec'd pt from 3W. placed on tele loco #40. pt denies pain. bilateral leg dressings intact. pt oriented to room
[2024-02-06 03:30] VITALS: BP 116/62
[2024-02-06] MEDS: MERREM 1000 MG IV ×3 (04:32→20:00)
[2024-02-06] MEDS: STERILE WATER FOR INJECTION 20 ML IV ×3 (04:32→19:56)
[2024-02-06] MEDS: SYNTHROID 125 MCG PO (05:39)
[2024-02-06 06:24] LABS: Hematocrit 29.1 % (37.0-47.0); Hemoglobin 9.1 g/dL (12.0-16.0); Mean Corp Hgb Conc. 31.3 g/dL (33.0-37.0); Mean Corpuscular Hgb 26.1 pg (27.0-31.0); Mean Corpuscular Volume 83.4 fL (81.0-99.0); Mean Platelet Volume 9.4 fL (7.4-10.4); Platelet Count 179 10^3/uL (130-400); Red Blood Cell Count 3.49 10^6/uL (4.20-5.40); Red Cell Dist. Width 16.8 % (11.5-14.5); White Blood Cell Count 4.6 10^3/uL (4.8-10.8)
[2024-02-06 06:44] LABS: Blood Urea Nitrogen 18 mg/dl (7-17); Calcium 9.1 mg/dl (8.4-10.2); Carbon Dioxide 26 mmol/L (22-30); Chloride 108 mmol/L (98-107); Estimated Creatinine Clearance 84 ml/min; Glucose 75 mg/dl (70-99); Phosphorus 3.6 mg/dl (2.5-4.5); Potassium 5.1 mmol/L (3.5-5.1); Sodium 140 mmol/L (135-145); eGFR > 60.00
--- NOTE | 2024-02-06 07:25 | W.PN.HOSP.TC ---
Today's Communication/Plan
-
medically stable for discharge pending snf placement
Assessment / Plan
Assessment / Plan
Physical Exam
General: Well Developed, Well Nourished and No Apparent Distress
HEENT: NormoCephalic, Moist mucous membranes and Atraumatic
Respiratory: Clear
Cardiac: S1/S2 and Regular Rhythm; No Murmur or Rub
GI: Soft, Non Tender, Non Distended and Normal Bowel Sounds; No Organomegaly
Musculoskeletal: No Clubbing, No Cyanosis and No Edema
Skin: Rash chronic lymphedema, b/l LE wound
Neuro: AO x 3 and Nonfocal/grossly intact
Psych: Calm
73F DM foot ulcers heal osteo on IV abx PVD Lt groin mass HFpEF COPD HTN HLD afib s/p watchman Hypothyroidism Morbid obesity recently discharged return d/t need snf rehab previously recommended but refused, now agreeable.
# Diabetic foot ulcers
# Left Heel DM Wound, Chronic L heel wound that is recently worse per patient.
# Peripheral vascular disease
#MRI L foot is suggestive of osteomyelitis of posterior calcaneus
-debridement - completed on 01/29/24
-Bone Biopsy performed on 01/29/24
-arterial US noted Left toe brachial index measures 0.37, compared to 0.59 on prior. Right toe brachial index measures 0.37, compared to 0.34 on prior study.
-underwent right lower extremity diagnostic arteriography w Vascular last hospitalization
-meropenem 1000 mg IV q8H and Linezolid 600 PO BID through 03/11/24 as per ID
#ambulatory dysfunction
-PT/OT consulted
#Left groin mass
-Found on MRI pelvis, 11.6 cm hypervascular soft tissue mass
-prior hospitalization Oncology eval appreciated and outpatient [facility] follow up recommended
#Chronic HFpEF
# Pulmonary Hypertension
# Valvular Heart Disease
-spironolactone continued
- Echo done last in November with normal LVEF, mitral / tricuspid regurg.
#Paroxysmal atrial fibrillation -on digoxin/metoprolol
#COPD
-nebs from home continued
-singulair continued
#IDDM -hemoglobin A1c of 8.
-lantus 28u at hs
-metformin
-sliding scale
-CHO diet
#Hypothyroidism
-levothyroxine continued
#s/p L Reverse Shoulder Arthroplasty on 12/12/23 - f/u with ortho in office
#GERD
-PPI continued
#depression
-sertraline continued
#essential htn
-verapamil continued with hold parameter
#HLD
-statin,fenofibrate continued
#Morbid Obesity due to excess calories, BMI 44
DVT Prophylaxis: Lovenox
Code Status: Full
Medically stable for discharge pending SNF placement
I spent a total of 35 minutes with the patient or on the floor. More than 50% of this time involved counseling and coordination of care.
Anticipated Discharge: Within 24 hours
Subjective/Interval History
-
Date of Service: February 06, 2024
No acute distress. Comfortable. Reports frequent loose stools
Objective Data
-
Labs:
Laboratory Results
02/06/24
05:50
WBC 4.6 L
Hgb 9.1 L
Hct 29.1 L
Plt Count 179
Sodium 140
Potassium 5.1
Chloride 108 H
Carbon Dioxide 26
BUN 18 H
Creatinine 0.7
Glucose 75
Calcium 9.1
Vital Signs:
Vital Signs
Temp Pulse Resp BP Pulse Ox
97.7 F 83 16 116/62 95
02/06/24 03:30 02/06/24 03:30 02/06/24 03:30 02/06/24 03:30 02/06/24 03:30
I&O
02/05/24 02/06/24 02/07/24
06:59 06:59 06:59
Intake Total 480 / 480 1500 / 1500
Output Total 160 / 160
Balance 320 / 320 1500 / 1500
[2024-02-06 07:43] LABS: Glucose - Point of Care 83 mg/dl (70-99)
[2024-02-06] MEDS: NOVOLOG FLEXPEN-LOW RESISTANCE SC ×3 (07:48→17:33)
[2024-02-06 08:33] VITALS: BP 124/60
[2024-02-06 08:50] VITALS: BMI 44.5
[2024-02-06] MEDS: COLACE 100 MG PO ×2 (08:51→19:55)
[2024-02-06] MEDS: DESENEX/MITRAZOL/ZEASORB 1 APPLIC TOPICAL ×2 (08:51→21:27)
[2024-02-06] MEDS: PROTONIX 40 MG PO (08:54)
[2024-02-06] MEDS: ALDACTONE 25 MG PO (08:54)
[2024-02-06] MEDS: CALAN EXTENDED RELEASE 240 MG PO (08:54)
[2024-02-06] MEDS: SENOKOT 17.2 MG PO ×2 (08:54→19:55)
[2024-02-06] MEDS: TOPROL XL 25 MG PO (08:54)
[2024-02-06] MEDS: GLUCOPHAGE 1000 MG PO ×2 (08:54→18:17)
[2024-02-06] MEDS: SINGULAIR 10 MG PO (08:54)
[2024-02-06] MEDS: NEURONTIN 300 MG PO ×2 (08:54→19:55)
[2024-02-06] MEDS: KCL 20 MEQ PO (08:54)
[2024-02-06] MEDS: ASPIR LOW (ENTERIC COATED) 81 MG PO ×2 (08:54→19:55)
[2024-02-06] MEDS: SANTYL OINTMENT 1 APPLIC TOPICAL (09:58)
[2024-02-06] MEDS: ZYVOX 600 MG PO ×2 (09:58→19:55)
[2024-02-06] MEDS: LANOXIN 125 MCG PO (09:58)
[2024-02-06 11:41] LABS: Glucose - Point of Care 98 mg/dl (70-99)
--- NOTE | 2024-02-06 11:41 | CM ---
it audit manager reviewed patient's chart and met with patient this am and reviewed patient progress with physical therapy and patient patient agrees with recommendations with skilled placement. Options for skilled placement reviewed and patient has
selected [facility], referral faxed to [facility] for skilled placement.
Plan; Skilled placement at [facility] depending on determination from admissions at [facility].
--- NOTE | 2024-02-06 11:56 | WOUNDNOTE ---
BON RN note: Patient admitted with osteomyelitis of heel, for SNF placement.
See H&P for complete history.
PMH: Lymphedema, IDDM,obesity, neuropathy, A fib, CHF,HTN, CAD, ulcers on heels, angioplasty, watchman's 2023.
Wound Location and type/assessment: Patient admitted with: R heel dry eschar, unstageable, suspect stage 4 PI, edges pulling away, unable to see base. L heel with stage 4 PI, osteomyelitis on past MRI, silver cleaner compared to last seen on 01/31/24.
Patient being followed by Dr. Galarza, discussed wound care and offloading with child care aide for clarification. L dorsal ankle with healing abrasion, intact small scab. Abdominal skin folds with MASD, fungal powder in use. Patient turned with
assist from nurse Jesus who also helped with wound care. Sacrum intact, mild MASD.
Appetite: Good.
Pressure redistribution devices in place: On IVU Accumax, patient assists with turning. Applied offloading heel boots.
Plan: Santyl already on order, to be applied to L heel only per Dr. Galarza and dry dressing to R heel. Confirmed with Paramedical Aide that she will obtain another heel relief shoe, patient states she lost last pair at home. Patient declined using
leighton wraps on legs, states she no longer uses compression wraps, has not been ambulatory at home.
Will confirm orders with hospitalist and updated nurse. Updated care plan and will follow as needed.
Note to case management of equipment requested for discharge: air mattress recommended.
Recommend follow up with Paramedical Aide.
[2024-02-06 12:22] VITALS: BP 116/61
[2024-02-06 16:57] VITALS: BP 126/57
[2024-02-06 17:27] LABS: Glucose - Point of Care 108 mg/dl (70-99)
[2024-02-06] MEDS: LOVENOX 40 MG SC (18:17)
[2024-02-06] MEDS: LANTUS 0.28 UNITS SC (18:18)
[2024-02-06 19:58] VITALS: BP 127/60
[2024-02-06] MEDS: TRICOR 48 MG PO (21:27)
[2024-02-06] MEDS: LIPITOR 40 MG PO (21:27)
[2024-02-06] MEDS: ZOLOFT 50 MG PO (21:27)
[2024-02-06] MEDS: AMBIEN 10 MG PO (21:27)
[2024-02-06 22:34] LABS: Glucose - Point of Care 165 mg/dl (70-99)
[2024-02-06 23:27] VITALS: BP 118/61
[2024-02-07] MEDS: STERILE WATER FOR INJECTION 20 ML IV ×2 (04:12→12:24)
[2024-02-07] MEDS: MERREM 1000 MG IV ×2 (04:12→12:24)
[2024-02-07 04:13] VITALS: BP 123/62
[2024-02-07] MEDS: SYNTHROID 125 MCG PO (05:02)
[2024-02-07 05:55] LABS: Hematocrit 29.4 % (37.0-47.0); Hemoglobin 9.2 g/dL (12.0-16.0); Mean Corp Hgb Conc. 31.3 g/dL (33.0-37.0); Mean Corpuscular Hgb 26.3 pg (27.0-31.0); Mean Platelet Volume 9.2 fL (7.4-10.4); Platelet Count 161 10^3/uL (130-400); Red Cell Dist. Width 16.6 % (11.5-14.5); White Blood Cell Count 6.3 10^3/uL (4.8-10.8)
[2024-02-07 06:00] VITALS: BMI 44.3
[2024-02-07 06:28] LABS: Blood Urea Nitrogen 16 mg/dl (7-17); Calcium 9.1 mg/dl (8.4-10.2); Carbon Dioxide 26 mmol/L (22-30); Chloride 108 mmol/L (98-107); Estimated Creatinine Clearance 84 ml/min; Glucose 77 mg/dl (70-99); Magnesium 1.9 mg/dl (1.6-2.3); Phosphorus 3.4 mg/dl (2.5-4.5); Potassium 4.7 mmol/L (3.5-5.1); Sodium 141 mmol/L (135-145); eGFR > 60.00
--- NOTE | 2024-02-07 07:20 | W.PN.HOSP.TC ---
Today's Communication/Plan
-
discharge
Assessment / Plan
Assessment / Plan
Physical Exam
General: Well Developed, Well Nourished and No Apparent Distress
HEENT: NormoCephalic, Moist mucous membranes and Atraumatic
Respiratory: Clear
Cardiac: S1/S2 and Regular Rhythm; No Murmur or Rub
GI: Soft, Non Tender, Non Distended and Normal Bowel Sounds; No Organomegaly
Musculoskeletal: No Clubbing, No Cyanosis and No Edema
Skin: Rash chronic lymphedema, b/l LE wound
Neuro: AO x 3 and Nonfocal/grossly intact
Psych: Calm
73F DM foot ulcers heal osteo on IV abx PVD Lt groin mass HFpEF COPD HTN HLD afib s/p watchman Hypothyroidism Morbid obesity recently discharged return d/t need snf rehab previously recommended but refused, now agreeable.
# Diabetic foot ulcers
# Left Heel DM Wound, Chronic L heel wound that is recently worse per patient.
# Peripheral vascular disease
#MRI L foot is suggestive of osteomyelitis of posterior calcaneus
-debridement - completed on 01/29/24
-Bone Biopsy performed on 01/29/24
-arterial US noted Left toe brachial index measures 0.37, compared to 0.59 on prior. Right toe brachial index measures 0.37, compared to 0.34 on prior study.
-underwent right lower extremity diagnostic arteriography w Vascular last hospitalization
-meropenem 1000 mg IV q8H and Linezolid 600 PO BID through 03/11/24 as per ID
#ambulatory dysfunction
-PT/OT consult appreciated SNF rehab
#Left groin mass
-Found on MRI pelvis, 11.6 cm hypervascular soft tissue mass
-prior hospitalization Oncology eval appreciated and outpatient [facility] follow up recommended
#Chronic HFpEF
# Pulmonary Hypertension
# Valvular Heart Disease
-spironolactone continued
- Echo done last in November with normal LVEF, mitral / tricuspid regurg.
#Paroxysmal atrial fibrillation -on digoxin/metoprolol
#COPD
-nebs from home continued
-singulair continued
#IDDM -hemoglobin A1c of 8.
-lantus 28u at hs
-metformin
-sliding scale
-CHO diet
#Hypothyroidism
-levothyroxine continued
#s/p L Reverse Shoulder Arthroplasty on 12/12/23 - f/u with ortho in office
#GERD
-PPI continued
#depression
-sertraline continued
#essential htn
-verapamil continued with hold parameter
#HLD
-statin,fenofibrate continued
#Morbid Obesity due to excess calories, BMI 44
DVT Prophylaxis: Lovenox
Code Status: Full
Medically stable for discharge SNF rehab with outpatient follow up recommendations.
Total Time Preparing Discharge ___40____ minutes including examination of the patient, summary of the hospital stay, instructions for continuing care to all relevant caregivers; and preparation of discharge records, prescriptions, and referral
forms if necessary.
Anticipated Discharge: Today
Subjective/Interval History
-
Date of Service: February 07, 2024
Seen and examined at bedside in no acute distress sitting up comfortably in chair. Overall reports feeling well. Looking forward to discharge to SNF rehab. Denies new acute issues. Loose stools/diarrhea resolving with change scheduled laxatives
to prn.
Objective Data
-
Labs:
Laboratory Results
02/07/24
05:33
WBC 6.3
Hgb 9.2 L
Hct 29.4 L
Plt Count 161
Sodium 141
Potassium 4.7
Chloride 108 H
Carbon Dioxide 26
BUN 16
Creatinine 0.7
Glucose 77
Calcium 9.1
Vital Signs:
Vital Signs
Temp Pulse Resp BP Pulse Ox
98.0 F 92 16 123/62 94
02/07/24 04:13 02/07/24 04:13 02/07/24 04:13 02/07/24 04:13 02/07/24 04:13
I&O
02/06/24 02/07/24 02/08/24
06:59 06:59 06:59
Intake Total 1500 / 1500
Output Total 450 / 450
Balance 1500 / 1500 -450 / -450
[2024-02-07 07:45] VITALS: BP 123/74
[2024-02-07 08:02] LABS: Glucose - Point of Care 84 mg/dl (70-99)
[2024-02-07] MEDS: NOVOLOG FLEXPEN-LOW RESISTANCE SC ×2 (08:06→12:38)
[2024-02-07] MEDS: NEURONTIN 300 MG PO (08:11)
[2024-02-07] MEDS: ASPIR LOW (ENTERIC COATED) 81 MG PO (08:11)
[2024-02-07] MEDS: CALAN EXTENDED RELEASE 240 MG PO (08:11)
[2024-02-07] MEDS: PROTONIX 40 MG PO (08:11)
[2024-02-07] MEDS: GLUCOPHAGE 1000 MG PO (08:11)
[2024-02-07] MEDS: TOPROL XL 25 MG PO (08:11)
[2024-02-07] MEDS: LANOXIN 125 MCG PO (08:12)
[2024-02-07] MEDS: ZYVOX 600 MG PO (08:12)
[2024-02-07] MEDS: ALDACTONE 25 MG PO (08:12)
[2024-02-07] MEDS: SINGULAIR 10 MG PO (08:12)
[2024-02-07] MEDS: DESENEX/MITRAZOL/ZEASORB 1 APPLIC TOPICAL (08:14)
[2024-02-07] MEDS: SANTYL OINTMENT 1 APPLIC TOPICAL (08:15)
--- NOTE | 2024-02-07 10:27 | CM ---
Addendum entered by Beatriz Grace 02/07/24 11:55:
Per admissions at [facility] they can accept patient today. Patient to transfer by ambulance.
[facility]
Report [phone]

Original Note:
Chart reviewed and patient has been at skilled facilities since her shoulder surgery in December, will need to see if patient has any skilled days left. Patient also on IV ABX. mobility manager spoke with [facility] admissions and they need to review patient
to see if she is able to participate with physical therapy, they are concerned regarding restrictions with physical therapy.
Plan; Await determination from [facility] admissions.
[2024-02-07 11:10] VITALS: BP 115/61
[2024-02-07 12:15] VITALS: BP 100/52; PULSE 71; O2SAT 94
[2024-02-07 12:37] LABS: Glucose - Point of Care 114 mg/dl (70-99)
--- NOTE | 2024-02-07 14:52 | W.DCSUMMARY ---
Discharge Summary
Discharge Data
Date of Admission: 02/04/24
Date of Discharge: 02/07/24
-
Pending Results: No
Discharge Plan
-
Patient Disposition: Prison/SNF
Discharge Diagnosis/Procedures: Diabetic foot ulcers
Left Heel Diabetes Wound, Chronic Left heel wound
Left Heel Osteomyelitis
ambulatory dysfunction
Left groin mass
Chronic Heart Failure preserved Ejection Fraction
Pulmonary Hypertension
Valvular Heart Disease
Paroxysmal atrial fibrillation
COPD
Diabetes
Hypothyroidism
History Left Reverse Shoulder Arthroplasty on 12/12/23
GERD
Depression
Hypertension
Hyperlipidemia
Morbid Obesity due to excess calories, BMI 44
Condition: Fair
Diet: Diabetic, Carb Controlled
Activity: With assistance, Do not bear weight L leg and With Walker
Driving Restrictions: Not until seen by your Dr
Bathing Restrictions: keep dressing areas dry
Blood Work: Obtain weekly CBC CMP ESR CRP on Mondays, while on IV antibiotics- results to be forwarded to Infectious Disease Office.
Other Services: PT and OT
Activity Restrictions/Additional Instructions:
01/24: Foot xray left
IMPRESSION:
No acute fracture or dislocation. Scattered mild to moderate degenerative changes. Mild to moderate plantar calcaneal enthesopathy. Diffuse soft tissue swelling about the foot. Large posterior heel soft tissue wound. No alvarado erosions identified. No
convincing radiographic evidence for active osteomyelitis. MRI would be of greater sensitivity. Scattered vascular calcifications.
01/25- Ultrasound peripheral arteries
IMPRESSION:
1. Noncompressible arteries bilaterally, likely artificially elevating measured ankle-brachial indices.
2. Left toe brachial index measures 0.37, compared to 0.59 on prior. Abnormal spectral Doppler waveforms throughout the arteries of the left lower extremity are suggestive of aortoiliac inflow disease. Mild stenosis within the common femoral artery.
No flow demonstrated within the posterior tibial artery.
3. Right toe brachial index measures 0.37, compared to 0.34 on prior study. Monophasic waveform within the popliteal and infrapopliteal arteries are suggestive of popliteal and infrapopliteal disease.
4. Large hypoechoic mass within the left groin, measuring 6.5 cm in greatest dimension, with internal vascularity. This may be benign or malignant, further evaluation is recommended with CT examination of the abdomen and pelvis.
01/26- MRI
IMPRESSION: Soft tissue defect involving the posterior heel, extending to the posterior bony margin of the calcaneus.
01/29- lower extremity CT w/IV contrast
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 Adjacent probable enlarged lymph node. Stable from 2020 study. Extension of above mass not completely excluded but seems less likely.
Moderate edematous change of the soft tissues of the left thigh. Progressed
Stable pelvic fluid collection from 2020 suggesting is benign. This may be a seroma or lymphocele.
02/01 -MR Pelvis W/o & With Contrast
1. LARGE 11.6 cm HYPERVASCULAR SOFT TISSUE MASS in the left groin and smaller soft tissue masses in the more inferior left groin and the right groin which are new from 06/08/2021. Diagnostic possibilities are (1) lymphoma, (2) Casteleman disease,
(3) metastatic lymphadenopathy or (4) atypical reactive lymphadenopathy.
2. 8.8 cm benign-appearing chronic cyst in the left side of the pelvis.
3. Moderate to severe diffuse muscle atrophy.
4. Moderate anasarca.
Wound Care Instructions
L heel: clean with saline, apply Santyl to L heel only, adaptic, abd pad and shari daily
R heel: clean with saline, skin prep periwound, dry gauze dressing daily.
offloading heel boots when in bed
Heel relief shoe when oob
air mattress with turning schedule if SNF
Follow up with primary care provider in 1 week of discharge, keep your appointment with Vascular Surgeon, follow up with podiatry and oncology in 2 weeks of discharge, and infectious disease in 1 month of discharge.
continue meropenem 1000 mg IV q8H and Linezolid 600 PO BID through 03/11/24 as per Infectious Disease
Scheduled laxatives colace and senna have been converted to prn due to frequent loose stools/diarrhea, improving since change.
Scheduled potassium supplementation has been discontinued due to increasing potassium levels, high normal, since improved.
Please take medications as prescribed and follow up with primary care provider and/or other healthcare provider involved in your care for refills and/or further adjustment to your medication regimen as necessary.
Referrals:
Ingrid Segudno MD [Active] - in two weeks
Obed Joy MD [Active] - 02/12/24 4:00 pm
Paul Galarza DPM [Specified Professional Personl] - in two weeks
Betsy Heard NP [Family Provider] - in one week
Hortencia Kearns MD [Active] - in one month
Prescriptions:
Continued
albuterol sulfate 1 PUFF HFA aerosol inhaler
2 puff inhalation R Q4HPRN PRN (Reason: sob/wheezing)
atorvastatin 40 MG tablet
40 mg PO HS
fenofibrate nanocrystallized 48 MG tablet
48 mg PO HS
pantoprazole 40 MG tablet,delayed release (DR/EC)
40 mg PO DAILY
sertraline 50 MG tablet
50 mg PO HS
montelukast 10 MG tablet
10 mg PO DAILY
fluticasone propion-salmeterol [Advair Diskus] 250-50 mcg/dose Blister With Device
1 inh INHALATION R DAILYPRN PRN (Reason: sob/wheezing)
spironolactone 25 mg Tablet
25 mg PO DAILY
levothyroxine [Synthroid] 125 mcg Tablet
125 mcg PO DAILY
digoxin 125 mcg (0.125 mg) Tablet
125 mcg PO DAILY
insulin glargine [Lantus U-100 Insulin] 100 unit/mL solution
28 unit SC QPM Qty: 1 0RF
Rx Instructions:
reduce to 20U at pm if am glucose <100
BEGIN 12/15/23 PM
gabapentin 300 mg capsule
300 mg PO BID Qty: 10 0RF
aspirin 81 mg Tablet,Delayed Release (Dr/Ec)
81 mg PO BID Qty: 0 0RF
verapamil 240 mg capsule,ext rel. pellets 24 hr
240 mg PO DAILY
zolpidem 12.5 mg tablet,ext release multiphase
12.5 mg PO HS
Patient Comments:
11/04/2023: last filled 09/13/23, 90 tabs for 90 days from [facility]
metoprolol succinate 25 mg Tablet Extended Release 24 Hr
25 mg PO DAILY Qty: 30 0RF
multivitamin [Daily-Marcia] Tablet
1 tab PO DAILY
magnesium hydroxide [Milk of Magnesia] 400 mg/5 mL Suspension
30 ml PO DAILYPRN PRN (Reason: if no bm x 3 days)
bisacodyl [Dulcolax (bisacodyl)] 10 mg Suppository
10 mg ME DAILYPRN PRN (Reason: if mom ineffective)
Fleet Enema 19-7 gram/118 mL Enema
118 ml ME DAILYPRN PRN (Reason: if dulcolax is ineffective)
Santyl 250 unit/gram Ointment
1 applic TOPICAL DAILY
Patient Comments:
apply to left heel
acetaminophen [Tylenol] 325 mg capsule
650 mg PO Q6HPRN PRN (Reason: mild pain/fever>100)
linezolid 600 mg Tablet
600 mg PO BID 6 Days Qty: 12 0RF
metformin 1,000 mg Tablet
1,000 mg PO BID@0800,1700 Qty: 60 0RF
Changed
sennosides [Senokot] 8.6 mg tablet
17.2 mg PO BIDPRN PRN (Reason: Constipation) Qty: 2 0RF
docusate sodium [Colace] 100 mg capsule
100 mg PO BIDPRN PRN (Reason: constipation) Qty: 1 0RF
Discontinued
potassium chloride 20 mEq tablet,ER particles/crystals
20 meq PO BID
Discharge Orders:
Discharge Patient (As Directed); Ordered 02/07/24
Ordered By: Gilda Turk
Discharge Date and Time
Print Language: NIUEAN
[2024-02-07 15:26] VITALS: BP 106/50
== END 2024-02-07 16:46 | DRG 300 ==
LOC: 4 WEST ACU 19:51
PROVIDERS: Registered Nurse; ADMITTING PHYSICIAN Internal Medicine; ATTENDING PHYSICIAN Internal Medicine; EMERGENCY PHYSICIAN Emergency Medicine; FAMILY PHYSICIAN Internal Medicine
DX: E11.51 Type 2 diabetes mellitus with diabetic peripheral angiopathy without gangrene (principal); I50.22 Chronic systolic (congestive) heart failure; M86.9 Osteomyelitis, unspecified; Z68.41 Body mass index [BMI] 40.0-44.9, adult; Z87.891 Personal history of nicotine dependence; E11.621 Type 2 diabetes mellitus with foot ulcer; L97.529 Non-pressure chronic ulcer of other part of left foot with unspecified severity; E11.69 Type 2 diabetes mellitus with other specified complication; E66.01 Morbid (severe) obesity due to excess calories; I48.0 Paroxysmal atrial fibrillation; N18.30 Chronic kidney disease, stage 3 unspecified
CPT/HCPCS: 71046; 80048; 80053; 80162; 82962; 83735; 84100; 85025; 85027; 87070; 87324; 87449; 96374; 97162; 97166; 97530; 99284; J2185

== ENCOUNTER → 2024-02-12 09:40 | Outpatient (REF) | payer MEDICARE, OTHER, SELFPAY ==
[2024-02-12 13:59] LABS: % Basophils 1.4 % (0-2); % Eosinophils 9.5 % (0-6); % Immature Granulocytes 0.5 % (0-0.5); % Lymphocytes 12.9 % (20.5-51.1); % Monocytes 9.7 % (1.7-9.3); Absolute Basophils 0.1 10^3/uL (0-0.2); Absolute Eosinophils 0.5 10^3/uL (0-0.7); Absolute Lymphocytes 0.7 10^3/uL (1.2-3.4); Absolute Monocytes 0.6 10^3/uL (0.1-0.6); Absolute Neutrophils 3.7 10^3/uL (1.4-6.5); Hemoglobin 8.5 g/dL (12.0-16.0); Mean Corp Hgb Conc. 31.5 g/dL (33.0-37.0); Mean Corpuscular Hgb 26.6 pg (27.0-31.0); Mean Corpuscular Volume 84.4 fL (81.0-99.0); Mean Platelet Volume 10.8 fL (7.4-10.4); Nucleated Red Blood Cells % 0 %; Platelet Count 124 10^3/uL (130-400); Red Cell Dist. Width 16.4 % (11.5-14.5); White Blood Cell Count 5.7 10^3/uL (4.8-10.8)
[2024-02-12 14:11] LABS: ALT (SGPT) < 10 U/L (0-35); AST (SGOT) 15 U/L (14-36); Albumin 2.8 g/dl (3.5-5.0); Alkaline Phosphatase 94 U/L (38-126); Blood Urea Nitrogen 14 mg/dl (7-17); Calcium 8.6 mg/dl (8.4-10.2); Carbon Dioxide 24 mmol/L (22-30); Chloride 107 mmol/L (98-107); Direct Bilirubin 0.2 mg/dl (0.0-0.4); Glucose 89 mg/dl (70-99); Potassium 4.3 mmol/L (3.5-5.1); Sodium 141 mmol/L (135-145); Total Bilirubin 0.3 mg/dl (0.2-1.3); Total Protein 5.4 g/dl (6.3-8.2); eGFR > 60.00
[2024-02-12 15:08] LABS: Erythrocyte Sed Rate 61 mm/hour (0-20)
== END ==
LOC: OLABP 09:40
PROVIDERS: ATTENDING PHYSICIAN Family Medicine
DX: M86.172 Other acute osteomyelitis, left ankle and foot (principal); L89.624 Pressure ulcer of left heel, stage 4; R22.42 Localized swelling, mass and lump, left lower limb; L89.610 Pressure ulcer of right heel, unstageable; E11.621 Type 2 diabetes mellitus with foot ulcer; I73.9 Peripheral vascular disease, unspecified; I50.33 Acute on chronic diastolic (congestive) heart failure; F32.9 Major depressive disorder, single episode, unspecified; I11.0 Hypertensive heart disease with heart failure; E66.01 Morbid (severe) obesity due to excess calories; E11.9 Type 2 diabetes mellitus without complications; R26.2 Difficulty in walking, not elsewhere classified; E78.5 Hyperlipidemia, unspecified; K21.9 Gastro-esophageal reflux disease without esophagitis; I48.0 Paroxysmal atrial fibrillation; E03.9 Hypothyroidism, unspecified
CPT/HCPCS: 36415; 80053; 82248; 85025; 85652; 86140

== ENCOUNTER → 2024-02-19 13:03 | Outpatient (REF) | payer OTHER, MEDICARE, SELFPAY ==
[2024-02-19 13:34] LABS: % Basophils 1.2 % (0-2); % Eosinophils 7.2 % (0-6); % Immature Granulocytes 0.6 % (0-0.5); % Lymphocytes 10.6 % (20.5-51.1); % Monocytes 12.4 % (1.7-9.3); Absolute Basophils 0.1 10^3/uL (0-0.2); Absolute Eosinophils 0.4 10^3/uL (0-0.7); Absolute Lymphocytes 0.5 10^3/uL (1.2-3.4); Absolute Monocytes 0.6 10^3/uL (0.1-0.6); Absolute Neutrophils 3.4 10^3/uL (1.4-6.5); Hematocrit 25.2 % (37.0-47.0); Hemoglobin 7.9 g/dL (12.0-16.0); Mean Corp Hgb Conc. 31.3 g/dL (33.0-37.0); Mean Corpuscular Hgb 25.6 pg (27.0-31.0); Mean Corpuscular Volume 81.6 fL (81.0-99.0); Nucleated Red Blood Cells % 0.6 %; Platelet Count 138 10^3/uL (130-400); Red Blood Cell Count 3.09 10^6/uL (4.20-5.40); Red Cell Dist. Width 16.9 % (11.5-14.5)
[2024-02-19 14:04] LABS: Erythrocyte Sed Rate 48 mm/hour (0-20)
[2024-02-19 14:34] LABS: ALT (SGPT) 11 U/L (0-35); AST (SGOT) 19 U/L (14-36); Albumin 2.9 g/dl (3.5-5.0); Alkaline Phosphatase 74 U/L (38-126); Blood Urea Nitrogen 16 mg/dl (7-17); Calcium 8.7 mg/dl (8.4-10.2); Carbon Dioxide 26 mmol/L (22-30); Chloride 106 mmol/L (98-107); Direct Bilirubin 0.2 mg/dl (0.0-0.4); Glucose 45 mg/dl (70-99); Potassium 4.9 mmol/L (3.5-5.1); Sodium 139 mmol/L (135-145); Total Bilirubin 0.5 mg/dl (0.2-1.3); Total Protein 5.5 g/dl (6.3-8.2); eGFR > 60.00
== END ==
LOC: OLABP 13:03
PROVIDERS: ATTENDING PHYSICIAN Family Medicine
DX: M86.172 Other acute osteomyelitis, left ankle and foot (principal); L89.624 Pressure ulcer of left heel, stage 4; L89.610 Pressure ulcer of right heel, unstageable; E11.621 Type 2 diabetes mellitus with foot ulcer; I73.9 Peripheral vascular disease, unspecified; I50.33 Acute on chronic diastolic (congestive) heart failure; J44.9 Chronic obstructive pulmonary disease, unspecified; I11.0 Hypertensive heart disease with heart failure; E11.9 Type 2 diabetes mellitus without complications; E78.5 Hyperlipidemia, unspecified; I48.91 Unspecified atrial fibrillation; I48.92 Unspecified atrial flutter; E03.9 Hypothyroidism, unspecified; F32.9 Major depressive disorder, single episode, unspecified; E66.01 Morbid (severe) obesity due to excess calories
CPT/HCPCS: 36415; 80048; 80076; 85025; 85652; 86140

== ENCOUNTER → 2024-02-21 12:17 | Outpatient (REF) | payer OTHER, MEDICARE, SELFPAY ==
[2024-02-21 14:37] LABS: Hematocrit 25.6 % (37.0-47.0); Hemoglobin 7.8 g/dL (12.0-16.0); Mean Corp Hgb Conc. 30.5 g/dL (33.0-37.0); Mean Corpuscular Hgb 25.5 pg (27.0-31.0); Mean Corpuscular Volume 83.7 fL (81.0-99.0); Mean Platelet Volume 11.1 fL (7.4-10.4); Platelet Count 155 10^3/uL (130-400); Red Blood Cell Count 3.06 10^6/uL (4.20-5.40); Red Cell Dist. Width 17.2 % (11.5-14.5); White Blood Cell Count 4.9 10^3/uL (4.8-10.8)
[2024-02-21 14:52] LABS: Erythrocyte Sed Rate 34 mm/hour (0-20)
[2024-02-21 15:36] LABS: ALT (SGPT) 10 U/L (0-35); AST (SGOT) 22 U/L (14-36); Alkaline Phosphatase 69 U/L (38-126); Blood Urea Nitrogen 15 mg/dl (7-17); Calcium 8.8 mg/dl (8.4-10.2); Carbon Dioxide 25 mmol/L (22-30); Chloride 107 mmol/L (98-107); Direct Bilirubin 0.3 mg/dl (0.0-0.4); Glucose 44 mg/dl (70-99); Potassium 4.8 mmol/L (3.5-5.1); Sodium 139 mmol/L (135-145); Total Bilirubin 0.6 mg/dl (0.2-1.3); Total Protein 5.5 g/dl (6.3-8.2); eGFR > 60.00
== END ==
LOC: OLABP 12:17
PROVIDERS: ATTENDING PHYSICIAN Family Medicine
DX: E11.621 Type 2 diabetes mellitus with foot ulcer (principal); I50.31 Acute diastolic (congestive) heart failure; I11.0 Hypertensive heart disease with heart failure; E11.9 Type 2 diabetes mellitus without complications; R26.2 Difficulty in walking, not elsewhere classified; E78.5 Hyperlipidemia, unspecified; I48.0 Paroxysmal atrial fibrillation; E03.9 Hypothyroidism, unspecified
CPT/HCPCS: 36415; 80048; 80076; 85027; 85652; 86140

== ENCOUNTER → 2024-02-26 10:17 | Outpatient (REF) | payer OTHER, MEDICARE, SELFPAY ==
[2024-02-26 11:28] LABS: % Basophils 0.9 % (0-2); % Immature Granulocytes 0.2 % (0-0.5); % Lymphocytes 17.2 % (20.5-51.1); % Monocytes 7.6 % (1.7-9.3); % Neutrophils 69.1 % (42.2-75.2); Absolute Eosinophils 0.2 10^3/uL (0-0.7); Absolute Lymphocytes 0.8 10^3/uL (1.2-3.4); Absolute Monocytes 0.3 10^3/uL (0.1-0.6); Hematocrit 26.2 % (37.0-47.0); Hemoglobin 8.2 g/dL (12.0-16.0); Mean Corp Hgb Conc. 31.3 g/dL (33.0-37.0); Mean Corpuscular Hgb 27.2 pg (27.0-31.0); Mean Platelet Volume 10.2 fL (7.4-10.4); Nucleated Red Blood Cells % 0.7 %; Platelet Count 139 10^3/uL (130-400); Red Blood Cell Count 3.01 10^6/uL (4.20-5.40); Red Cell Dist. Width 20.9 % (11.5-14.5); White Blood Cell Count 4.4 10^3/uL (4.8-10.8)
[2024-02-26 12:01] LABS: Erythrocyte Sed Rate 34 mm/hour (0-20)
[2024-02-26 12:44] LABS: ALT (SGPT) 11 U/L (0-35); AST (SGOT) 19 U/L (14-36); Albumin 2.9 g/dl (3.5-5.0); Alkaline Phosphatase 83 U/L (38-126); Blood Urea Nitrogen 17 mg/dl (7-17); Calcium 8.5 mg/dl (8.4-10.2); Carbon Dioxide 28 mmol/L (22-30); Chloride 107 mmol/L (98-107); Glucose 52 mg/dl (70-99); Potassium 4.7 mmol/L (3.5-5.1); Sodium 142 mmol/L (135-145); Total Bilirubin 0.6 mg/dl (0.2-1.3); Total Protein 5.4 g/dl (6.3-8.2); eGFR > 60.00
== END ==
LOC: OLABP 10:17
PROVIDERS: ATTENDING PHYSICIAN Family Medicine
DX: M86.172 Other acute osteomyelitis, left ankle and foot (principal); L89.624 Pressure ulcer of left heel, stage 4; L89.610 Pressure ulcer of right heel, unstageable; E11.621 Type 2 diabetes mellitus with foot ulcer; I73.9 Peripheral vascular disease, unspecified; I50.33 Acute on chronic diastolic (congestive) heart failure; E32.9 Disease of thymus, unspecified; I11.0 Hypertensive heart disease with heart failure; E66.01 Morbid (severe) obesity due to excess calories; E11.9 Type 2 diabetes mellitus without complications; R26.2 Difficulty in walking, not elsewhere classified; E78.5 Hyperlipidemia, unspecified; K21.9 Gastro-esophageal reflux disease without esophagitis; I48.0 Paroxysmal atrial fibrillation; E03.9 Hypothyroidism, unspecified
CPT/HCPCS: 36415; 80053; 85025; 85652; 86140

== ENCOUNTER → 2024-02-28 18:46 | Outpatient (REF) | payer OTHER, MEDICARE, SELFPAY | LOC: OLABP 18:46 | PROVIDERS: ATTENDING PHYSICIAN Family Medicine | DX: E11.621 Type 2 diabetes mellitus with foot ulcer (principal); I73.9 Peripheral vascular disease, unspecified; I50.33 Acute on chronic diastolic (congestive) heart failure; E32.9 Disease of thymus, unspecified; I11.0 Hypertensive heart disease with heart failure; E66.01 Morbid (severe) obesity due to excess calories; E11.9 Type 2 diabetes mellitus without complications; R26.2 Difficulty in walking, not elsewhere classified; E78.5 Hyperlipidemia, unspecified; K21.9 Gastro-esophageal reflux disease without esophagitis; I48.0 Paroxysmal atrial fibrillation; E03.9 Hypothyroidism, unspecified; L89.624 Pressure ulcer of left heel, stage 4; L89.610 Pressure ulcer of right heel, unstageable | CPT/HCPCS: 87324; 87449 ==

== ENCOUNTER → 2024-03-04 10:00 | Outpatient (REF) | payer OTHER, MEDICARE, SELFPAY ==
[2024-03-04 11:25] LABS: % Basophils 1.1 % (0-2); % Eosinophils 3.6 % (0-6); % Immature Granulocytes 0.5 % (0-0.5); % Lymphocytes 14.4 % (20.5-51.1); % Monocytes 11.2 % (1.7-9.3); % Neutrophils 69.2 % (42.2-75.2); Absolute Basophils 0.1 10^3/uL (0-0.2); Absolute Eosinophils 0.2 10^3/uL (0-0.7); Absolute Lymphocytes 0.6 10^3/uL (1.2-3.4); Absolute Monocytes 0.5 10^3/uL (0.1-0.6); Hematocrit 25.1 % (37.0-47.0); Hemoglobin 7.8 g/dL (12.0-16.0); Mean Corp Hgb Conc. 31.1 g/dL (33.0-37.0); Mean Corpuscular Hgb 26.1 pg (27.0-31.0); Mean Corpuscular Volume 83.9 fL (81.0-99.0); Nucleated Red Blood Cells % 0.7 %; Platelet Count 104 10^3/uL (130-400); Red Blood Cell Count 2.99 10^6/uL (4.20-5.40); Red Cell Dist. Width 20.6 % (11.5-14.5); White Blood Cell Count 4.4 10^3/uL (4.8-10.8)
[2024-03-04 11:33] LABS: ALT (SGPT) 11 U/L (0-35); AST (SGOT) 18 U/L (14-36); Albumin 2.9 g/dl (3.5-5.0); Alkaline Phosphatase 77 U/L (38-126); Blood Urea Nitrogen 20 mg/dl (7-17); Calcium 8.4 mg/dl (8.4-10.2); Carbon Dioxide 29 mmol/L (22-30); Chloride 105 mmol/L (98-107); Direct Bilirubin 0.3 mg/dl (0.0-0.4); Glucose 33 mg/dl (70-99); Potassium 4.3 mmol/L (3.5-5.1); Sodium 142 mmol/L (135-145); Total Bilirubin 0.7 mg/dl (0.2-1.3); Total Protein 5.4 g/dl (6.3-8.2); eGFR > 60.00
[2024-03-04 11:44] LABS: Erythrocyte Sed Rate 27 mm/hour (0-20)
== END ==
LOC: OLABP 10:00
PROVIDERS: ATTENDING PHYSICIAN Family Medicine
DX: L89.624 Pressure ulcer of left heel, stage 4 (principal); L89.610 Pressure ulcer of right heel, unstageable; E11.621 Type 2 diabetes mellitus with foot ulcer; I73.9 Peripheral vascular disease, unspecified; I50.33 Acute on chronic diastolic (congestive) heart failure; F32.9 Major depressive disorder, single episode, unspecified; E66.01 Morbid (severe) obesity due to excess calories; E11.9 Type 2 diabetes mellitus without complications; E78.5 Hyperlipidemia, unspecified; K21.9 Gastro-esophageal reflux disease without esophagitis; I48.0 Paroxysmal atrial fibrillation; E03.9 Hypothyroidism, unspecified
CPT/HCPCS: 36415; 80048; 80076; 85025; 85652; 86140

== ENCOUNTER → 2024-03-11 10:18 | Outpatient (REF) | payer MEDICARE, OTHER, SELFPAY ==
[2024-03-11 11:34] LABS: % Basophils 0.7 % (0-2); % Eosinophils 2.9 % (0-6); % Immature Granulocytes 0.5 % (0-0.5); % Lymphocytes 11.1 % (20.5-51.1); % Monocytes 8.6 % (1.7-9.3); % Neutrophils 76.2 % (42.2-75.2); ALT (SGPT) 12 U/L (0-35); AST (SGOT) 21 U/L (14-36); Absolute Eosinophils 0.2 10^3/uL (0-0.7); Absolute Lymphocytes 0.6 10^3/uL (1.2-3.4); Absolute Monocytes 0.5 10^3/uL (0.1-0.6); Absolute Neutrophils 4.3 10^3/uL (1.4-6.5); Alkaline Phosphatase 79 U/L (38-126); Blood Urea Nitrogen 22 mg/dl (7-17); Calcium 8.5 mg/dl (8.4-10.2); Carbon Dioxide 30 mmol/L (22-30); Chloride 106 mmol/L (98-107); Glucose < 30 mg/dl (70-99); Hematocrit 25.7 % (37.0-47.0); Mean Corp Hgb Conc. 31.1 g/dL (33.0-37.0); Mean Corpuscular Hgb 27.3 pg (27.0-31.0); Mean Corpuscular Volume 87.7 fL (81.0-99.0); Mean Platelet Volume 10.3 fL (7.4-10.4); Nucleated Red Blood Cells % 0.5 %; Platelet Count 146 10^3/uL (130-400); Potassium 4.2 mmol/L (3.5-5.1); Red Blood Cell Count 2.93 10^6/uL (4.20-5.40); Red Cell Dist. Width 22.4 % (11.5-14.5); Sodium 143 mmol/L (135-145); Total Bilirubin 0.7 mg/dl (0.2-1.3); Total Protein 5.4 g/dl (6.3-8.2); White Blood Cell Count 5.6 10^3/uL (4.8-10.8); eGFR > 60.00
[2024-03-11 11:43] LABS: Erythrocyte Sed Rate 23 mm/hour (0-20)
[2024-03-11 11:56] LABS: Anisocytosis 2+; Normal RBC Morphology No; Polychromasia Slight
== END ==
LOC: OLABP 10:18
PROVIDERS: ATTENDING PHYSICIAN Family Medicine
DX: I73.9 Peripheral vascular disease, unspecified (principal); R26.2 Difficulty in walking, not elsewhere classified; R22.42 Localized swelling, mass and lump, left lower limb; I50.33 Acute on chronic diastolic (congestive) heart failure; J44.9 Chronic obstructive pulmonary disease, unspecified; I11.0 Hypertensive heart disease with heart failure; E11.00 Type 2 diabetes mellitus with hyperosmolarity without nonketotic hyperglycemic-hyperosmolar coma (NKHHC); E11.9 Type 2 diabetes mellitus without complications; E78.5 Hyperlipidemia, unspecified; I48.0 Paroxysmal atrial fibrillation; F32.9 Major depressive disorder, single episode, unspecified; E03.9 Hypothyroidism, unspecified; E66.01 Morbid (severe) obesity due to excess calories; K21.9 Gastro-esophageal reflux disease without esophagitis; M86.172 Other acute osteomyelitis, left ankle and foot; L89.624 Pressure ulcer of left heel, stage 4; L89.610 Pressure ulcer of right heel, unstageable
CPT/HCPCS: 36415; 80048; 80076; 85025; 85652; 86140

== ENCOUNTER → 2024-03-18 09:51 | Outpatient (REF) | payer OTHER, MEDICARE, SELFPAY ==
[2024-03-18 11:23] LABS: % Eosinophils 6.2 % (0-6); % Immature Granulocytes 1.6 % (0-0.5); % Lymphocytes 14.2 % (20.5-51.1); % Monocytes 10.3 % (1.7-9.3); % Neutrophils 66.7 % (42.2-75.2); Absolute Basophils 0.1 10^3/uL (0-0.2); Absolute Eosinophils 0.3 10^3/uL (0-0.7); Absolute Immature Granulocytes 0.1 10^3/uL (0-0.05); Absolute Lymphocytes 0.7 10^3/uL (1.2-3.4); Absolute Monocytes 0.5 10^3/uL (0.1-0.6); Absolute Neutrophils 3.2 10^3/uL (1.4-6.5); Hematocrit 22.5 % (37.0-47.0); Hemoglobin 7.1 g/dL (12.0-16.0); Mean Corp Hgb Conc. 31.6 g/dL (33.0-37.0); Mean Corpuscular Hgb 26.4 pg (27.0-31.0); Mean Corpuscular Volume 83.6 fL (81.0-99.0); Mean Platelet Volume 10.6 fL (7.4-10.4); Nucleated Red Blood Cells % 2.1 %; Platelet Count 153 10^3/uL (130-400); Red Blood Cell Count 2.69 10^6/uL (4.20-5.40); Red Cell Dist. Width 22.3 % (11.5-14.5); White Blood Cell Count 4.9 10^3/uL (4.8-10.8)
[2024-03-18 11:28] LABS: ALT (SGPT) 10 U/L (0-35); AST (SGOT) 16 U/L (14-36); Albumin 2.9 g/dl (3.5-5.0); Alkaline Phosphatase 75 U/L (38-126); Blood Urea Nitrogen 20 mg/dl (7-17); Calcium 8.3 mg/dl (8.4-10.2); Carbon Dioxide 30 mmol/L (22-30); Chloride 103 mmol/L (98-107); Direct Bilirubin 0.3 mg/dl (0.0-0.4); Glucose 67 mg/dl (70-99); Potassium 4.3 mmol/L (3.5-5.1); Sodium 142 mmol/L (135-145); Total Bilirubin 0.7 mg/dl (0.2-1.3); Total Protein 5.3 g/dl (6.3-8.2); eGFR > 60.00
[2024-03-18 11:55] LABS: Erythrocyte Sed Rate 55 mm/hour (0-20)
== END ==
LOC: OLABP 09:51
PROVIDERS: ATTENDING PHYSICIAN Family Medicine
DX: I73.9 Peripheral vascular disease, unspecified (principal); R26.2 Difficulty in walking, not elsewhere classified; R22.42 Localized swelling, mass and lump, left lower limb; I50.33 Acute on chronic diastolic (congestive) heart failure; J44.9 Chronic obstructive pulmonary disease, unspecified; I11.0 Hypertensive heart disease with heart failure; E11.00 Type 2 diabetes mellitus with hyperosmolarity without nonketotic hyperglycemic-hyperosmolar coma (NKHHC); E11.9 Type 2 diabetes mellitus without complications; E78.5 Hyperlipidemia, unspecified; I48.0 Paroxysmal atrial fibrillation; E03.9 Hypothyroidism, unspecified; K21.9 Gastro-esophageal reflux disease without esophagitis; F32.9 Major depressive disorder, single episode, unspecified; E66.01 Morbid (severe) obesity due to excess calories; M86.172 Other acute osteomyelitis, left ankle and foot; L89.624 Pressure ulcer of left heel, stage 4; L89.610 Pressure ulcer of right heel, unstageable
CPT/HCPCS: 36415; 80053; 82248; 85025; 85652; 86140

== ENCOUNTER → 2024-03-25 17:04 | Outpatient (REF) | payer MEDICARE, OTHER, SELFPAY ==
[2024-03-25 18:56] LABS: % Basophils 1.7 % (0-2); % Eosinophils 7.2 % (0-6); % Immature Granulocytes 0.7 % (0-0.5); % Lymphocytes 14.2 % (20.5-51.1); % Monocytes 7.7 % (1.7-9.3); % Neutrophils 68.5 % (42.2-75.2); Absolute Basophils 0.1 10^3/uL (0-0.2); Absolute Eosinophils 0.4 10^3/uL (0-0.7); Absolute Lymphocytes 0.8 10^3/uL (1.2-3.4); Absolute Monocytes 0.5 10^3/uL (0.1-0.6); Hematocrit 26.5 % (37.0-47.0); Hemoglobin 7.6 g/dL (12.0-16.0); Mean Corp Hgb Conc. 28.7 g/dL (33.0-37.0); Mean Corpuscular Volume 90.8 fL (81.0-99.0); Mean Platelet Volume 10.6 fL (7.4-10.4); Nucleated Red Blood Cells % 0 %; Platelet Count 257 10^3/uL (130-400); Red Blood Cell Count 2.92 10^6/uL (4.20-5.40); Red Cell Dist. Width 26.4 % (11.5-14.5); White Blood Cell Count 5.9 10^3/uL (4.8-10.8)
[2024-03-25 19:01] LABS: ALT (SGPT) 11 U/L (0-35); AST (SGOT) 18 U/L (14-36); Albumin 3.1 g/dl (3.5-5.0); Alkaline Phosphatase 67 U/L (38-126); Blood Urea Nitrogen 21 mg/dl (7-17); Calcium 8.5 mg/dl (8.4-10.2); Carbon Dioxide 33 mmol/L (22-30); Chloride 103 mmol/L (98-107); Direct Bilirubin 0.2 mg/dl (0.0-0.4); Glucose 74 mg/dl (70-99); Potassium 3.7 mmol/L (3.5-5.1); Sodium 143 mmol/L (135-145); Total Bilirubin 0.5 mg/dl (0.2-1.3); Total Protein 5.4 g/dl (6.3-8.2); eGFR > 60.00
[2024-03-25 20:11] LABS: Erythrocyte Sed Rate 24 mm/hour (0-20)
== END ==
LOC: OLABP 17:04
PROVIDERS: ATTENDING PHYSICIAN Family Medicine
DX: I73.9 Peripheral vascular disease, unspecified (principal); R26.2 Difficulty in walking, not elsewhere classified; R22.42 Localized swelling, mass and lump, left lower limb; I50.33 Acute on chronic diastolic (congestive) heart failure; J44.9 Chronic obstructive pulmonary disease, unspecified; I11.0 Hypertensive heart disease with heart failure; E11.00 Type 2 diabetes mellitus with hyperosmolarity without nonketotic hyperglycemic-hyperosmolar coma (NKHHC); E11.9 Type 2 diabetes mellitus without complications; E78.5 Hyperlipidemia, unspecified; I48.0 Paroxysmal atrial fibrillation; E03.9 Hypothyroidism, unspecified; K21.9 Gastro-esophageal reflux disease without esophagitis; F32.9 Major depressive disorder, single episode, unspecified; E66.01 Morbid (severe) obesity due to excess calories; M86.172 Other acute osteomyelitis, left ankle and foot; L89.624 Pressure ulcer of left heel, stage 4
CPT/HCPCS: 36415; 80048; 80076; 85025; 85652; 86140

== ENCOUNTER → 2024-04-01 10:10 | Outpatient (REF) | payer MEDICARE, OTHER, SELFPAY ==
[2024-04-01 11:05] LABS: % Basophils 1.8 % (0-2); % Eosinophils 7.7 % (0-6); % Immature Granulocytes 0.7 % (0-0.5); % Lymphocytes 13.8 % (20.5-51.1); % Monocytes 9.1 % (1.7-9.3); % Neutrophils 66.9 % (42.2-75.2); Absolute Basophils 0.1 10^3/uL (0-0.2); Absolute Eosinophils 0.4 10^3/uL (0-0.7); Absolute Lymphocytes 0.8 10^3/uL (1.2-3.4); Absolute Monocytes 0.5 10^3/uL (0.1-0.6); Absolute Neutrophils 3.8 10^3/uL (1.4-6.5); Hematocrit 28.4 % (37.0-47.0); Hemoglobin 8.5 g/dL (12.0-16.0); Mean Corp Hgb Conc. 29.9 g/dL (33.0-37.0); Mean Corpuscular Hgb 27.2 pg (27.0-31.0); Mean Platelet Volume 10.6 fL (7.4-10.4); Nucleated Red Blood Cells % 0 %; Platelet Count 295 10^3/uL (130-400); Red Blood Cell Count 3.12 10^6/uL (4.20-5.40); Red Cell Dist. Width 24.8 % (11.5-14.5); White Blood Cell Count 5.6 10^3/uL (4.8-10.8)
[2024-04-01 11:08] LABS: ALT (SGPT) 12 U/L (0-35); AST (SGOT) 19 U/L (14-36); Albumin 3.2 g/dl (3.5-5.0); Alkaline Phosphatase 70 U/L (38-126); Blood Urea Nitrogen 28 mg/dl (7-17); Calcium 8.9 mg/dl (8.4-10.2); Carbon Dioxide 33 mmol/L (22-30); Chloride 102 mmol/L (98-107); Direct Bilirubin 0.2 mg/dl (0.0-0.4); Glucose 93 mg/dl (70-99); Sodium 142 mmol/L (135-145); Total Bilirubin 0.4 mg/dl (0.2-1.3); Total Protein 5.7 g/dl (6.3-8.2); eGFR > 60.00
[2024-04-01 13:22] LABS: Erythrocyte Sed Rate 32 mm/hour (0-20)
== END ==
LOC: OLABP 10:10
PROVIDERS: ATTENDING PHYSICIAN Family Medicine
DX: I73.9 Peripheral vascular disease, unspecified (principal); R26.2 Difficulty in walking, not elsewhere classified; R22.42 Localized swelling, mass and lump, left lower limb; I50.33 Acute on chronic diastolic (congestive) heart failure; J44.9 Chronic obstructive pulmonary disease, unspecified; I11.0 Hypertensive heart disease with heart failure; E11.00 Type 2 diabetes mellitus with hyperosmolarity without nonketotic hyperglycemic-hyperosmolar coma (NKHHC); E11.9 Type 2 diabetes mellitus without complications; E78.5 Hyperlipidemia, unspecified; I48.0 Paroxysmal atrial fibrillation; F32.9 Major depressive disorder, single episode, unspecified; E03.9 Hypothyroidism, unspecified; E66.01 Morbid (severe) obesity due to excess calories; K21.9 Gastro-esophageal reflux disease without esophagitis; M86.172 Other acute osteomyelitis, left ankle and foot; L89.624 Pressure ulcer of left heel, stage 4; L89.610 Pressure ulcer of right heel, unstageable
CPT/HCPCS: 36415; 80053; 82248; 85025; 85652; 86140

== ENCOUNTER → 2024-04-05 11:00 | Outpatient (REF) | payer MEDICARE, OTHER, SELFPAY ==
[2024-04-05 11:25] LABS: Hematocrit 32.3 % (37.0-47.0); Hemoglobin 9.7 g/dL (12.0-16.0); Mean Corpuscular Hgb 26.7 pg (27.0-31.0); Mean Platelet Volume 11.2 fL (7.4-10.4); Platelet Count 267 10^3/uL (130-400); Red Blood Cell Count 3.63 10^6/uL (4.20-5.40); Red Cell Dist. Width 24.2 % (11.5-14.5)
[2024-04-05 11:28] LABS: Blood Urea Nitrogen 29 mg/dl (7-17); Calcium 9.2 mg/dl (8.4-10.2); Carbon Dioxide 27 mmol/L (22-30); Chloride 103 mmol/L (98-107); Glucose 87 mg/dl (70-99); Potassium 4.2 mmol/L (3.5-5.1); Sodium 143 mmol/L (135-145); eGFR > 60.00
== END ==
LOC: OLABP 11:00
PROVIDERS: ATTENDING PHYSICIAN Family Medicine
DX: I73.9 Peripheral vascular disease, unspecified (principal); R26.2 Difficulty in walking, not elsewhere classified; R22.42 Localized swelling, mass and lump, left lower limb; I50.33 Acute on chronic diastolic (congestive) heart failure; J44.9 Chronic obstructive pulmonary disease, unspecified; M86.172 Other acute osteomyelitis, left ankle and foot; I11.0 Hypertensive heart disease with heart failure; E11.00 Type 2 diabetes mellitus with hyperosmolarity without nonketotic hyperglycemic-hyperosmolar coma (NKHHC); E11.9 Type 2 diabetes mellitus without complications; E78.5 Hyperlipidemia, unspecified; I48.0 Paroxysmal atrial fibrillation; F32.9 Major depressive disorder, single episode, unspecified; E66.01 Morbid (severe) obesity due to excess calories; E03.9 Hypothyroidism, unspecified; K21.9 Gastro-esophageal reflux disease without esophagitis
CPT/HCPCS: 36415; 80048; 85027

== ENCOUNTER → 2024-04-09 11:27 | Outpatient (REF) | payer MEDICARE, OTHER, SELFPAY ==
[2024-04-09 11:56] LABS: % Basophils 0.8 % (0-2); % Eosinophils 3.9 % (0-6); % Immature Granulocytes 0.5 % (0-0.5); % Lymphocytes 6.5 % (20.5-51.1); % Monocytes 5.8 % (1.7-9.3); % Neutrophils 82.5 % (42.2-75.2); Absolute Basophils 0.1 10^3/uL (0-0.2); Absolute Eosinophils 0.3 10^3/uL (0-0.7); Absolute Lymphocytes 0.6 10^3/uL (1.2-3.4); Absolute Monocytes 0.5 10^3/uL (0.1-0.6); Hematocrit 28.8 % (37.0-47.0); Hemoglobin 8.8 g/dL (12.0-16.0); Mean Corp Hgb Conc. 30.6 g/dL (33.0-37.0); Mean Corpuscular Hgb 27.4 pg (27.0-31.0); Mean Corpuscular Volume 89.7 fL (81.0-99.0); Mean Platelet Volume 11.2 fL (7.4-10.4); Nucleated Red Blood Cells % 0 %; Platelet Count 237 10^3/uL (130-400); Red Blood Cell Count 3.21 10^6/uL (4.20-5.40); Red Cell Dist. Width 22.5 % (11.5-14.5); White Blood Cell Count 8.5 10^3/uL (4.8-10.8)
== END ==
LOC: OLABP 11:27
PROVIDERS: ATTENDING PHYSICIAN Family Medicine
DX: I73.9 Peripheral vascular disease, unspecified (principal); R26.2 Difficulty in walking, not elsewhere classified; R22.42 Localized swelling, mass and lump, left lower limb; I50.33 Acute on chronic diastolic (congestive) heart failure; J44.9 Chronic obstructive pulmonary disease, unspecified; I11.0 Hypertensive heart disease with heart failure; E11.9 Type 2 diabetes mellitus without complications; E78.5 Hyperlipidemia, unspecified; I48.0 Paroxysmal atrial fibrillation; E03.9 Hypothyroidism, unspecified; K21.9 Gastro-esophageal reflux disease without esophagitis; F32.9 Major depressive disorder, single episode, unspecified; E66.01 Morbid (severe) obesity due to excess calories; M86.172 Other acute osteomyelitis, left ankle and foot; L89.624 Pressure ulcer of left heel, stage 4; L89.610 Pressure ulcer of right heel, unstageable
CPT/HCPCS: 36415; 85025

== ENCOUNTER → 2024-04-10 12:48 | Outpatient (REF) | payer OTHER, MEDICARE, SELFPAY ==
[2024-04-10 13:34] LABS: Urine Albumin Trace (Neg - Trace); Urine Bilirubin Negative (Negative); Urine Character Clear (Clear); Urine Color Yellow; Urine Glucose Negative (Negative); Urine Ketone Negative (Negative); Urine Leukocyte 2+ (Negative); Urine Nitrite Positive (Negative); Urine Occult Blood Negative (Negative); Urine Urobilinogen 2+ (Neg - 1+)
[2024-04-10 13:41] LABS: Urine Bacteria Moderate (Negative); Urine Red Blood Cell 0-2 /HPF (0-2); Urine Squamous Cell 0-2 /LPF (Few); Urine White Cell 21-25 /HPF (0-5)
== END ==
LOC: OLABP 12:48
PROVIDERS: ATTENDING PHYSICIAN Family Medicine
DX: I73.9 Peripheral vascular disease, unspecified (principal); R26.2 Difficulty in walking, not elsewhere classified; R22.42 Localized swelling, mass and lump, left lower limb; I50.33 Acute on chronic diastolic (congestive) heart failure; J44.9 Chronic obstructive pulmonary disease, unspecified; I11.0 Hypertensive heart disease with heart failure; E11.9 Type 2 diabetes mellitus without complications; E78.5 Hyperlipidemia, unspecified; I48.0 Paroxysmal atrial fibrillation; F32.9 Major depressive disorder, single episode, unspecified; E66.01 Morbid (severe) obesity due to excess calories; E03.9 Hypothyroidism, unspecified; K21.9 Gastro-esophageal reflux disease without esophagitis; M86.172 Other acute osteomyelitis, left ankle and foot; L89.624 Pressure ulcer of left heel, stage 4; L89.610 Pressure ulcer of right heel, unstageable
CPT/HCPCS: 81003; 81015; 87086

== ENCOUNTER 2024-06-17 21:19 | Inpatient (IN) | payer MEDICARE, SELFPAY ==
[2024-06-17] VITALS (20 sets, daily range): BP systolic 70–118; BP diastolic 45–91; BMI 46.8; BMI 46.4
[2024-06-17 17:54] LABS: % Basophils 0.4 % (0-2); % Eosinophils 0.5 % (0-6); % Immature Granulocytes 0.7 % (0-0.5); % Lymphocytes 5.6 % (20.5-51.1); % Monocytes 2.5 % (1.7-9.3); % Neutrophils 90.3 % (42.2-75.2); Absolute Basophils 0.1 10^3/uL (0-0.2); Absolute Eosinophils 0.1 10^3/uL (0-0.7); Absolute Immature Granulocytes 0.1 10^3/uL (0-0.05); Absolute Lymphocytes 0.7 10^3/uL (1.2-3.4); Absolute Monocytes 0.3 10^3/uL (0.1-0.6); Absolute Neutrophils 11.1 10^3/uL (1.4-6.5); Hematocrit 38.7 % (37.0-47.0); Hemoglobin 11.8 g/dL (12.0-16.0); Mean Corp Hgb Conc. 30.5 g/dL (33.0-37.0); Mean Corpuscular Volume 85.4 fL (81.0-99.0); Mean Platelet Volume 9.7 fL (7.4-10.4); Nucleated Red Blood Cells % 0 %; Platelet Count 320 10^3/uL (130-400); Red Blood Cell Count 4.53 10^6/uL (4.20-5.40); White Blood Cell Count 12.3 10^3/uL (4.8-10.8)
[2024-06-17 18:14] LABS: COVID-19 Antigen Negative (Negative)
[2024-06-17 18:15] LABS: Lactic Acid 2.7 mmol/L (0.7-2.0)
[2024-06-17 18:16] LABS: ALT (SGPT) < 10 U/L (0-35); AST (SGOT) 17 U/L (14-36); Albumin 4.4 g/dl (3.5-5.0); Alkaline Phosphatase 98 U/L (38-126); Blood Urea Nitrogen 32 mg/dl (7-17); Calcium 9.5 mg/dl (8.4-10.2); Carbon Dioxide 28 mmol/L (22-30); Chloride 97 mmol/L (98-107); Estimated Creatinine Clearance 68 ml/min; Glucose 202 mg/dl (70-99); Potassium 4.5 mmol/L (3.5-5.1); Sodium 138 mmol/L (135-145); Total Bilirubin 0.7 mg/dl (0.2-1.3); Total Protein 7.5 g/dl (6.3-8.2); eGFR > 60.00
[2024-06-17] MEDS: NSS 1000 IV ×2 (18:28→19:36)
[2024-06-17] MEDS: TYLENOL 1000 MG PO (18:33)
[2024-06-17 18:34] LABS: Venous Blood Gas B.E. 0.8 mmol/L (-4 to +4); Venous Blood Gas HCO3 27.1 mmol/L (22-27); Venous Blood Gas O2 Sat % 70.2 %; Venous Blood Gas pCO2 49 mmHg (35-48); Venous Blood Gas pH 7.35 (7.32-7.43); Venous Blood Gas pO2 44 mmHg (30-50)
[2024-06-17] MEDS: MERREM 1000 MG IV (18:35)
--- NOTE | 2024-06-17 19:25 | ED.GENMED ---
History of Present Illness
General
Chief Complaint: Fever
Source: patient and records
Time Seen by Provider: 06/17/24 17:36
History of Present Illness
History of Present Illness:
73-year-old female presents from home due to fever, chills, redness and pain left lower extremity. Upon arrival to the emergency room the patient is noted to be hypoxic. Medics noted the patient be hypoxic and placed on 4 L nasal cannula oxygen.
Patient denies any pulmonary disease. Patient states she noticed that her left leg has become significantly erythematous today. She has had cellulitis in that leg previously. She denies chest pain. She does endorse a history of chronic
lymphedema. She does not take any oral anticoagulation. She does have a history of A-fib but had a Watchman procedure performed so she is not taking anticoagulation.
Past History
Past History
ED Past Medical History: Arrthythmia (Atrial fibrillation), Asthma, CAD, CHF, HTN, Hypercholesterolemia, IDDM, [place], Hypothyroidism and Other (PNA, Cellulitis, Chronic Lymph edema)
ED Past Surgical History: Cardiac (cardioversion, Stents X 2), Cholecystectomy and Other
Social History
Tobacco: Former smoker
Alcohol: Daily (Vodka 1 large glass)
Drug: None
Personal:
Living: alone
Employment: Retired
Family History
Family History: Hypertension
Phy Exam
Physical Exam
Physical Exam:
General: Awake, Alert, Oriented X3 but seems somewhat confused. Appears acutely ill
Vitals: Tachycardic, febrile, tachypneic, hypoxic
Head: Atraumatic
Eyes: Pupils equal, EOMI
Throat: Airway intact, no exudates, dry mucosa
Neck: Trachea midline
Lungs: Clear and equal b/l
Heart: Tachycardic, irregular rate, no murmurs
Abd: Soft, Nontender, No pulsatile mass
Neuro: Grossly nonfocal
Skin: Warm, dry, no rash
Extremities: pulses equal b/l, nonpitting edema bilateral lower extremities. Left lower extremity markedly erythematous and tender to palpation
Course
Orders/Labs/Results
Orders:
Orders
06/17/24 17:33
Electrocardiogram (*1) Urgent
Reason for Study: Other
Other Reason for Exam: Possible Sepsis
Cardiac Monitoring- Treatment ONCE
EKG- Treatment ONCE
IV Insert/Care/Rem.- Treatment PRN
O2 Therapy [RESP] Urgent
Titrate/Wean O2 to maintain O2 sat greater than (%): 93
Special Instructions: TO MAINTAIN CONTINUOUS O2 SATS > OR = 93%
Pulse Ox/cont/shift [RESP] Urgent
Quantity: 1
Special Instructions: CONTINUOUS
06/17/24 17:41
Comprehensive Metabolic Panel Urgent
06/17/24 17:42
COVID-19 Antigen Urgent
Source: Nasal Swab
Complete Blood Count/With Diff Urgent
Lactic Acid Q4H
Comment: ON ICE, CANCEL 2ND ORDER IF FIRST LACTIC ACID LEVEL <2
Influenza A+B Rapid Molecular Urgent
HENNY Source: Nasal Swab
Specimen Description:
06/17/24 17:57
CR Chest Portable - 1 View Urgent
Comment:
Reason For Exam: shortness of breath
Reason Study Needs to be Portable: Patient Unstable
06/17/24 18:18
Meropenem [Merrem] 1,000 mg IV NOW STA
06/17/24 18:20
0.9% Sodium Chloride 1000 ml [Nss] 1,000 ml IV BOLUS
06/17/24 18:22
Acetaminophen [Tylenol] 1,000 mg PO NOW STA
06/17/24 18:29
Venous Blood Gas Urgent
%Oxygen/Room Air: 36
06/17/24 18:31
Sterile Water [Sterile Water For Injection] 20 ml .ROUTE .STK-MED
06/17/24 18:35
CT Chest PE Study Urgent
Comment:
Reason For Exam: hypoxia, tachycardia
06/17/24 19:12
DAPTOmycin [Cubicin] 480 mg Syringe [Syringe-Pump] 0 ml IV NOW
06/17/24 19:24
Ibuprofen [Motrin] 400 mg PO NOW STA
06/17/24 19:25
0.9% Sodium Chloride 1000 ml [Nss] 1,000 ml IV BOLUS
Ibuprofen [Motrin] 400 mg .ROUTE .STK-MED ONE
06/17/24 20:12
Admit/Transfer Patient As Directed
Co-Sign Provider:
Level of Care: Inpatient admission
Assign to:: IMU- Intermediate Care
Physician / Group: emir
Diagnosis: sepsis
Reason for Hospitalization: sepsis likely secondary to cellulitis
Expected length of stay greater than two midnights?: Yes
ELOS- Estimated Length of Stay in days: 3
I certify the patient meets the requirements for IP care: Yes
06/17/24 20:13
PRN Pain Medication Management As Directed
May give lesser potent ordered pain med per pt: Yes
preference::
Protocol:: Medication orders for pain may be administered in a
manner that supports deferring to patient preference
when the pt is:
- Requesting an ordered lesser potent pain medication.
Least to most potent pain medications are defined
as: acetaminophen < NSAID < tramadol < opioids
(morphine, oxycodone, hydromorphone).
- Requesting a lesser dose of the same medication IF
ORDERED.
- Requesting a less intrusive route of administration
if both routes are prescribed by the provider (PO <
IV).
06/17/24 20:15
Code Status As Directed
Resuscitation Status: Full Code
06/17/24 20:54
0.9% Sodium Chloride 500 ml [Nss] 500 ml IV BOLUS
06/17/24 21:03
PRN Pain Medication Management As Directed
May give lesser potent ordered pain med per pt: Yes
preference::
Protocol:: Medication orders for pain may be administered in a
manner that supports deferring to patient preference
when the pt is:
- Requesting an ordered lesser potent pain medication.
Least to most potent pain medications are defined
as: acetaminophen < NSAID < tramadol < opioids
(morphine, oxycodone, hydromorphone).
- Requesting a lesser dose of the same medication IF
ORDERED.
- Requesting a less intrusive route of administration
if both routes are prescribed by the provider (PO <
IV).
06/17/24 21:34
Lactic Acid Q4H
Comment: ON ICE, CANCEL 2ND ORDER IF FIRST LACTIC ACID LEVEL <2
06/20/24 11:00
DC Protocol for Telemetry ONCE
Abnormal Lab Results
06/17/24 06/17/24 06/17/24
17:41 17:42 18:29
WBC 12.3 H 10^3/uL
(4.8-10.8)
Hgb 11.8 L g/dL
(12.0-16.0)
MCH 26.0 L pg
(27.0-31.0)
MCHC 30.5 L g/dL
(33.0-37.0)
RDW 15.0 H %
(11.5-14.5)
Abs Immat Gran (auto) 0.1 H 10^3/uL
(0-0.05)
Absolute Neuts (auto) 11.1 H 10^3/uL
(1.4-6.5)
Absolute Lymphs (auto) 0.7 L 10^3/uL
(1.2-3.4)
Immature Gran % 0.7 H %
(0-0.5)
Neutrophils % 90.3 H %
(42.2-75.2)
Lymphocytes % 5.6 L %
(20.5-51.1)
VBG pCO2 49 H mmHg
(35-48)
VBG HCO3 27.1 H mmol/L
(22-27)
Chloride 97 L mmol/L
(98-107)
BUN 32 H mg/dl
(7-17)
Glucose 202 H mg/dl
(70-99)
Lactic Acid 2.7 H mmol/L
(0.7-2.0)
06/17/24 17:42
06/17/24 17:41
Vital Signs
Initial and Last Documented VS:
Initial Vital Signs
Temp Pulse Resp BP Pulse Ox
100.5 F H 135 22 116/53 95
06/17/24 17:41 06/17/24 17:41 06/17/24 17:41 06/17/24 17:41 06/17/24 17:41
Last Documented Vital Signs
Temp Pulse Resp BP Pulse Ox
104.0 F H 91 14 80/46 99
06/17/24 19:21 06/17/24 21:45 06/17/24 21:45 06/17/24 21:45 06/17/24 21:45
MDM/Problems Addressed
Differential Diagnosis Includes:
Cellulitis with sepsis, PE, pneumonia, pulmonary edema or noncardiogenic pulmonary edema
MDM/Problems Addressed:
Patient presents with fever, left leg cellulitis but also with hypoxia. Chest x-ray does not show a clear reason for her to be hypoxic. The patient's leg is erythematous and tender quite consistent with cellulitis. Reviewing patient's records she
does have a history of atrial fibrillation so this is not new. She also had imaging which showed a mass in her left inguinal region is of unclear origin. This did apparently somewhat compress the femoral artery and vein. Because of her hypoxia
and these findings would certainly could lead to venous thrombosis a CT of the chest was performed to rule out PE. It was a limited study due to motion artifact but there were no large PEs. There is also no evidence for pneumonia. Though the
patient's EKG does show atrial fibrillation and her heart rate is rapid I feel this is a tachycardia that secondary to acute infection and should not be treated primarily. Sepsis fluid bolus ordered. IV antibiotics ordered. Reviewing the
patient's chart I see she had an anaphylactic reaction to piperacillin in January. She also has other drug allergies. I discussed the patient's presentation with infectious disease who recommended we start daptomycin and meropenem.
Chronic conditions affecting care: HTN, Arrhythmia (Atrial fibrillation) and Other (CHF)
Acute Exacerbation and/or Progression of Chronic Illness: DM
*Radiology
Radiology exam reviewed: radiology read reviewed
*Pulse Oximetry
Patient hypoxic: yes
*EKG
Interpreted by ED Provider?: Yes
Interpretation: abnormal
Heart Rate: 121
Rate: tachycardiac
Rhythm: a-fib
QRS Pattern: right bundle branch block
Ischemia: non-specific ST changes
*Warehouse Insulation Worker Interpretation
Rate: tachycardiac
Interpretation: abnormal
Heart Rate: 121
Rhythm: a-fib
*Critical Care Note
Total Time (30-74mins, 75-104mins- exclusive of procedures): 45 min
comment:
Critical care statement: A total of 45 minutes of critical care time was provided for this patient. This includes management of unstable vital signs, evaluation of the patient at bedside, reviewing the patient's pertinent medical records, discussion
with consultants, review of old EKGs and review of pertinent medical records. This time with separate from time utilized to perform the aforementioned documented procedures
ED Attending Note
-
Portions of this chart may have been created with voice recognition software.� Occasional wrong word or��sound alike� substitutions may have occurred due to the inherent limitations of voice recognition software.
Discharge Plan
Departure
Patient Disposition: Admit
Date of Disposition: 06/17/24
Time of Disposition: 19:32
Admit to: ICU
Presentation/result/management discussed w/ accepting MD/DO: Hospitalist
Condition: Serious
Discharge Problem:
Sepsis, Cellulitis
Interventions
Interventions:
*Risk Screen - Suicide Last Done: 06/17/24 17:38
*General Assessment Last Done: 06/17/24 17:37
*Neglect/Abuse Screening Last Done: 06/17/24 17:38
ED- Fall Risk Assessment Last Done: 06/17/24 17:55
*ED COVID-19 Vaccine History Last Done: 06/17/24 17:37
ED- Neurological Assessment Last Done: 06/17/24 17:55
ED-Skin Assessment Last Done: 06/17/24 17:55
[2024-06-17] MEDS: MOTRIN 400 MG PO (19:28)
--- NOTE | 2024-06-17 19:35 | HPS.HSE ---
Addendum entered and electronically signed by Jovani Talavera DO 06/17/24 23:25:
Patient seen and examined independently. Agree with findings and plan as set forth by DB Powers.
Patient is a 73y F with PMH significant for ASCVD, HTN, DM-II and chronic lymphedema who presents to ED complaining of fevers / shaking chills at home this afternoon. Patient reports longstanding issues with chronic / recurrent UTIs, cellulitis,
etc. She notes that she has had recent urinary complaints; however, has not started any abx as an outpatient due to myriad of abx allergies. She also noted increased pain, swelling and redness in the LLE over the past several days. She is
followed by Dr. Galarza for chronic LE wounds. This afternoon she developed shaking chills, could not get warm and presented to the ED for evaluation.
In the ED, patient is hypotensive and tachycardic. She remains hypotensive after sepsis fluid boluses.
Ass:
LLE Cellulitis
Septic Shock secondary to the above
Possible UTI / Chronic - Recurrent Cystitis
Chronic Lymphedema
Chronic LE Wounds
Acute Hypoxemic Respiratory Insufficiency
ASCVD
Benign Hypertension
DM-II
Morbid Obesity
CKD III
Paroxysmal Atrial Fibrillation
Chronic HFpEF
Hypothyroidism
Plan:
Admit to IMU for further evaluation and treatment
ID recommends empiric treatment with daptomycin and meropenem for now.
Follow-up and available culture data. Follow-up additional ID recs.
Hold diuretic regimen acutely given hypotension / sepsis.
Has received > 3 liters of fluid in the ED and remains hypotensive - Levophed initiated, titrate as needed.
Podiatry evaluation for LE wounds.
Check Doppler LLE given asymmetry, redness, pain.
Patient is not on chronic OAC despite history of PA-Fib.
COVID, Flu negative. CT Chest without evident acute findings.
Follow for clinical improvement. Follow fever curve. Monitor for any new / focal symptoms or complaints.
Original Note:
Family Physician
-
Family Physician: Alex Dodd MD
Chief Complaint
-
chills
History of Present Illness
73 year old with PMH for atrial fib, asthma, CAD, CHF, HTn, HLD, IDDM, VT, hypothyroidism, lymphedema presented to us with fever, chills since this morning. she couldn't get herself warm. patient has chronic lymphedema as well b/l heel wound. she
follows Dr. Mancuso(ethologist) as patient. her left leg is more swollen and red but patient it is normal for her. denied TOUSSAINT, dizzy or syncope.denied chest pain, sob. denied abdominal pain, nausea, vomiting or diarrhea. patient stated chronic dysuria,
frequency and urgency. Her PCP is afraid treat her as outpatient due to anaphylaxis reaction to multiple antibiotics.
upon arrival she was noted in sepsis. received dapto and Meropenem in ER. admitting for further management.
Medical History
Past Medical History
Past Medical History: Reports Other
Additional Past Medical History:
atrial fib
iron def anemia
stage 3 CKD
hypothyroidism
H pylori infection
type 2 DM
cellulitis
kidney stones
adrenal mass
lymphedema
allergic asthma
HLD
CAD
GERD
CHF
GERD
alcohl use
sleep apnea
pVD
pulmonary artery HTn
Past Surgical History: Reports Other
Additional Past Surgical History:
left should replacement
cholecystectomy
kidney stone removed
tonsillectomy
bladder repair
cardiac ablation
cardioversions
skin CA removed
heel debridement
watchman procedure
Social History
Tobacco: Former Smoker
Alcohol: Former
Drug: None
Living: With Family
Family History
Family History: Not pertinent
Allergies / Home Medications
Allergies reflects when Allergies were last updated in [facility].
Home Medications with original date entered in [facility]
Allergy/Medication List:
Allergies
Allergy/AdvReac Type Severity Reaction Status Date / Time
piperacillin Allergy Severe Anaphylaxis, Verified 02/04/24 17:56
acute
hypoxemic
resp f,
hypotensitching
01/25/24
cat dander Allergy ASTHMA/SOB Verified 02/04/24 17:56
levofloxacin Allergy Hives Verified 02/04/24 17:56
[From Levaquin Leva-Carlos]
Penicillins Allergy Shortness Verified 02/04/24 17:56
of Breath
Sulfa (Sulfonamide Allergy Hives Verified 02/04/24 17:56
Antibiotics)
vancomycin [Vancomycin] Allergy Rash/red Verified 02/04/24 17:56
tino
syndrome
Home Medications
albuterol sulfate 90 mcg/actuation aerosol inhaler 2 puff inhalation R Q4HPRN PRN sob/wheezing 09/27/19
atorvastatin 40 mg tablet 40 mg PO HS High cholesterol 04/23/21
fenofibrate nanocrystallized 48 mg tablet 48 mg PO HS High cholesterol 07/13/21
montelukast 10 mg tablet 10 mg PO DAILY Allergies 11/30/21
pantoprazole 40 mg tablet,delayed release 40 mg PO DAILY Gastrointestinal issue 11/30/21
sertraline 50 mg tablet 50 mg PO HS Depression 11/30/21
digoxin 125 mcg (0.125 mg) tablet 125 mcg PO DAILY Heart Disease/Condition 08/22/23
fluticasone 250 mcg-salmeterol 50 mcg/dose blistr powdr for inhalation (Advair Diskus) 1 inh inhalation R DAILYPRN PRN sob/wheezing 08/22/23
levothyroxine 125 mcg tablet (Synthroid) 125 mcg PO DAILY Thyroid 08/22/23
spironolactone 25 mg tablet 25 mg PO DAILY Heart Failure 08/22/23
verapamil 240 mg 24 hr capsule,extended release 240 mg PO DAILY Blood Pressure 11/04/23
metoprolol succinate 25 mg tablet,extended release 24 hr 25 mg PO DAILY #30 tabs 11/06/23
gabapentin 300 mg capsule 300 mg PO BID sleep/pain #10 caps 12/14/23
acetaminophen 325 mg tablet (Tylenol) 650 mg PO Q6HPRN PRN mild pain/fever 06/17/24
aspirin 81 mg tablet,delayed release 81 mg PO DAILY 06/17/24
furosemide 80 mg tablet 40 mg PO NOON 06/17/24
furosemide 80 mg tablet 60 mg PO BID 06/17/24
insulin glargine 100 unit/mL subcutaneous solution (Lantus U-100 Insulin) 3 unit SC HS DM 06/17/24
metformin 500 mg tablet,extended release 24 hr 1,000 mg PO BID 06/17/24
therapeutic multivitamin 1 tab PO DAILY 06/17/24
vitamin A and D 1 applic topical DAILYPRN PRN diaper rash 06/17/24
Review of Systems
-
Constitutional: Reports Fever, Fatigue and Chills
EENT: Reports No Symptoms
Respiratory: Reports No Symptoms
Cardiac: Reports No Symptoms
Abdomen/GI: Reports No Symptoms
: Reports No Symptoms
Musculoskeletal: Reports No Symptoms
Skin: Reports Other (b/l heels wounds and b/l Le lymphedema, left LE red, swollen )
Neurological: Reports No Symptoms
Endocrine: Reports No Symptoms
Hematologic/Lymphatic: Reports No Symptoms
Psych: Reports No Symptoms
Physical Exam
Vital Signs
Vital Signs
Temp Pulse Resp BP Pulse Ox
104.0 F H 119 25 116/53 93
06/17/24 19:21 06/17/24 17:46 06/17/24 17:46 06/17/24 17:41 06/17/24 18:51
Physical Exam
General: Well Developed, Well Nourished and No Apparent Distress
HEENT: NormoCephalic, Moist mucous membranes and Atraumatic
Respiratory: Clear
Cardiac: Irregular Rhythm and Tachycardia; No Murmur or Rub
GI: Soft, Non Tender, Non Distended and Normal Bowel Sounds; No Organomegaly
Rectal: Deferred by Provider
Musculoskeletal: No Clubbing, No Cyanosis and Other (b/l Le elymphedema. left greater than right)
Skin: Other (b/l heel wounds, left LE red ,swollen and warm to touch)
Neuro: AO x 3 and Nonfocal/grossly intact
Psych: Calm
Laboratory Results
-
06/17/24 17:42
06/17/24 17:41
Laboratory Results
Lactic Acid 2.7 mmol/L (0.7-2.0) H 06/17/24 17:42
Total Bilirubin 0.7 mg/dl (0.2-1.3) 06/17/24 17:41
AST 17 U/L (14-36) 06/17/24 17:41
ALT < 10 U/L (0-35) 06/17/24 17:41
Alkaline Phosphatase 98 U/L (38-126) 06/17/24 17:41
Data Reviewed
-
Diagnostic Radiology: Report Reviewed by me
CT Scan: Report Reviewed by me
Lab Data: Labs Reviewed by me
Impression/Plan
-
#sepsis from left leg cellulitis
#hxt of Dm foot ulcers
#hxt of PVD and osteo
-wbc 12.3,lactic 2.7, tachy and temp of 104.0
-Daptomycin and meropenem continued
-Tylenol prn for fever
-trend lactic acid
-ID consulted
#acute hypoxic respiratory failure unclear cause
-patient requiring 2l of oxygen
-continue supplemental oxygen to keep sat >92
-wean as tolerated
-chest CT with the impression of No gross findings to suggest central pulmonary embolism.Mildly enlarged main pulmonary artery. Is there a history of pulmonary artery hypertension?. Cannot exclude small saccular aneurysm of the main pulmonary
artery, evaluation limited by artifact.Left adrenal gland lesion again seen most likely an adenoma, markedly limited in evaluation due to artifact.
-chest x ray with the impression of Extremely low lung volumes with crowding of the central/vascular markings.No focal parenchymal opacification to suggest pneumonia.
-flu and COVID negative
#anemia of chronic disease
-hgb stable at 11.8
-no active bleeding
-ctm
#Chronic HFpEF
# Pulmonary Hypertension
# Valvular Heart Disease
-hold diuretics
- Echo done last in November with normal LVEF, mitral / tricuspid regurg.
#Paroxysmal atrial fibrillation -on digoxin/metoprolol
#COPD
-nebs from home continued
-Singulair continued
#IDDM
-lantus 3u at hs
-hold metformin
-sliding scale
-CHO diet
#Hypothyroidism
-levothyroxine continued
#s/p L Reverse Shoulder Arthroplasty on 12/12/23 - f/u with ortho in office
#GERD
-PPI continued
#depression
-sertraline continued
#essential htn
-verapamil continued with hold parameter
#HLD
-statin,fenofibrate continued
#Morbid Obesity due to excess calories, BMI 46.7
DVT Prophylaxis: Lovenox
Code Status: Full
[2024-06-17] MEDS: CUBICIN 9.6 MG IV (19:45)
[2024-06-17] MEDS: NSS 500 IV ×2 (20:58→22:07)
[2024-06-17 21:57] LABS: Lactic Acid 2.2 mmol/L (0.7-2.0)
--- NOTE | 2024-06-17 22:30 | PTCARENOTE ---
FOLDED CLOTH TAPER Dominga Tobin made aware of pts BP trending down as well as MAP. pt ordered another 500 cc bolus. pts BP even lower, SAVANA Tobin made aware again and came to assess pt at bedside, no new orders at this time. pt states 'i feel fine'. will continue to
monitor BP.
[2024-06-17] MEDS: LEVOPHED 250 IV (22:51)
[2024-06-17] MEDS: FLUSH (NSS) 1 FLUSH IV (22:55)
[2024-06-18] VITALS (52 sets, daily range): BP systolic 86–131; BP diastolic 40–89; BMI 46.4; BMI 46.5
[2024-06-18] MEDS: LIPITOR 40 MG PO ×2 (00:19→21:03)
[2024-06-18] MEDS: STERILE WATER FOR INJECTION 10 ML IV ×5 (00:19→23:57)
[2024-06-18] MEDS: TRICOR 48 MG PO ×2 (00:19→21:03)
[2024-06-18] MEDS: LANTUS 0.03 UNITS SC ×2 (00:19→21:03)
[2024-06-18] MEDS: ZOLOFT 50 MG PO ×2 (00:19→21:03)
[2024-06-18] MEDS: MERREM 500 MG IV ×5 (00:20→23:56)
[2024-06-18 00:30] LABS: Glucose - Point of Care 178 mg/dl (70-99)
[2024-06-18 03:10] LABS: Lactic Acid 1.5 mmol/L (0.7-2.0)
[2024-06-18 03:13] LABS: Hemoglobin 11.1 g/dL (12.0-16.0); Mean Corp Hgb Conc. 31.7 g/dL (33.0-37.0); Mean Corpuscular Hgb 26.6 pg (27.0-31.0); Mean Corpuscular Volume 83.9 fL (81.0-99.0); Mean Platelet Volume 9.9 fL (7.4-10.4); Platelet Count 288 10^3/uL (130-400); Red Blood Cell Count 4.17 10^6/uL (4.20-5.40); Red Cell Dist. Width 15.3 % (11.5-14.5); White Blood Cell Count 25.2 10^3/uL (4.8-10.8)
[2024-06-18] MEDS: SYNTHROID 125 MCG PO (05:18)
--- NOTE | 2024-06-18 06:24 | PTCARENOTE ---
PT admitted overnight. aaox3, pleasant. B/l heel woundss changed and dressed, WOC consulted. Sacral healing wound & abdominal MASD. Continues to be on levo, tried weaning down according to protocol put bp dropped again. Now running at 6mcg. PT
asymptomatic. Q2T. Afib on monitor. Afebrile since ED. NO other issues at this time. will monitor.
[2024-06-18] MEDS: ASPIR LOW (ENTERIC COATED) 81 MG PO (08:28)
[2024-06-18] MEDS: PROTONIX 40 MG PO (08:28)
[2024-06-18] MEDS: SINGULAIR 10 MG PO (08:28)
[2024-06-18] MEDS: NEURONTIN 300 MG PO ×2 (08:28→19:54)
[2024-06-18 08:31] LABS: Glucose - Point of Care 214 mg/dl (70-99)
[2024-06-18] MEDS: CALAN EXTENDED RELEASE PO (08:31)
[2024-06-18] MEDS: DESENEX/MITRAZOL/ZEASORB 1 APPLIC TOPICAL ×2 (08:32→19:55)
[2024-06-18] MEDS: TOPROL XL PO (08:32)
[2024-06-18] MEDS: NOVOLOG FLEXPEN-LOW RESISTANCE 2 UNITS SC ×2 (08:41→12:22)
--- NOTE | 2024-06-18 08:58 | CON.ID ---
Consultation
-
Date/Time Consultation Requested: June 17, 2024 2331
Date/Time Consultation Performed: June 18, 2024 0900
Requesting Provider: DB Powers
Performing Provider: Dr. Lucrecia Rome
Reason for Consultation: Diabetic foot infection
Chief Complaint / Past History
Chief Complaint
Fever and chills
History of Present Illness
73-year-old female with diabetes mellitus, neuropathy, chronic lymphedema, chronic bilateral calcaneus wounds, recent left heel osteomyelitis status post 6 weeks of antibiotics completed early March 2024, who presents to the hospital June 17
with acute onset of fevers, chills, malaise. In the ER she was febrile up to 104, white count of 12 which increased to 25.2, lactic acid 2.7, blood pressure low in the 80s systolic. Patient noted to have left leg erythema and edema. She was
started on IV meropenem and daptomycin. Of note patient with penicillin anaphylaxis allergies. The left leg swelling and redness appeared suddenly. She follows with podiatry regarding the heel wounds which are improving. No cough or shortness of
breath. No rhinorrhea, headache or sore throat. No diarrhea. She has chronic dysuria unchanged despite multiple antibiotics in the past. No flank pain. She reports she does not use compression modalities. She cannot drive and therefore unable
to go to lymphedema clinic. She had tried Tubigrip's in the past which did not control the lymphedema.
Past History
Additional Past Medical History:
Diabetes mellitus type 2
Neuropathy
Hypertension
CAD status post stents
Carotid artery disease
paroxysmal atrial fibrillation
Watchman procedure
CHF
PAD failed attempt left lower extremity angioplasty
Class III obesity BMI 46.5
SAMIA
Pulmonary HTN
Chronic lymphedema
Asthma
Left groin mass
Insomnia
Rosacea
Nephrolithiasis
Cholecystectomy
Bladder repair
Chronic bilateral heel wounds
Left heel osteomyelitis I+D 01/2024 s/p 6wks meropenem and linezolid
Left shoulder replacement
Allergy History:
cat dander Allergy (Verified 02/04/24 17:56)
ASTHMA/SOB
levofloxacin [From Levaquin Leva-Carlos] Allergy (Verified 02/04/24 17:56)
Hives
Penicillins Allergy (Verified 02/04/24 17:56)
Shortness of Breath
piperacillin Allergy (Verified 06/17/24 22:47)
Anaphylaxis, acute hypoxemic resp f, hypotensitching 01/25/24
Sulfa (Sulfonamide Antibiotics) Allergy (Verified 02/04/24 17:56)
Hives
vancomycin [Vancomycin] Allergy (Verified 02/04/24 17:56)
Rash/red tino syndrome
Medications Reviewed: Yes
Current Antibiotics:
Daptomycin
Meropenem
Social History
Tobacco: Former Smoker
Alcohol: Former
Drug: None
Family History
Family History: Not Pertinent
Review of Systems
Review of Systems
General: Fever, Chills and Change in Appetite
HEENT: Negative Stiff Neck, Sinus Problems, Headache or Pharyngitis
Cardiovascular: Negative Chest Pain or Dyspnea
Respiratory: Negative Dyspnea or Cough
Gasteroenterology: Negative Nausea, Vomiting or Diarrhea
Genital / Urological: Dysuria (chronic); Negative Flank Pain
Endocrine: Weakness
Neurological: Negative Dizziness
All systems: All other systems were reviewed and were negative
Vital Signs
Temp Pulse Resp BP Pulse Ox
98.1 F 100 24 100/65 94
06/18/24 02:35 06/18/24 08:32 06/18/24 06:00 06/18/24 08:32 06/18/24 06:00
Selected Entries
06/17/24
19:21
Temp 104.0 F H
Physical Exam
Physical Exam
Constitutional: No Acute Distress and Obese
Eyes: No Conjunctival Hemorrhage and Sclera Anicteric
Cardiovascular: Regular Rate and S1/S2
Pulmonary: Clear
Gastrointestinal: Soft, Non Tender, Non Distended and Normal Bowel Sounds
Genito-Urinary: Negative Fitzpatrick or CVA Tenderness
Extremities: Edema (Lynphedema BLE. LLE 4+ edema) and Erythema (LLE erythema from ankle up to groin, + warmth, very dry skin left foot)
Wound: Other (left heel shallow wounds clean, dry, tissue very close to bone but no visible bone. )
Neurological: AO x 3
Lab / Diagnostic Study Results
06/18/24 02:47
06/17/24 17:41
Abs Immat Gran (auto) 0.1 10^3/uL (0-0.05) H 06/17/24 17:42
Absolute Neuts (auto) 11.1 10^3/uL (1.4-6.5) H 06/17/24 17:42
Absolute Lymphs (auto) 0.7 10^3/uL (1.2-3.4) L 06/17/24 17:42
Absolute Monos (auto) 0.3 10^3/uL (0.1-0.6) 06/17/24 17:42
Absolute Basos (auto) 0.1 10^3/uL (0-0.2) 06/17/24 17:42
Immature Gran % 0.7 % (0-0.5) H 06/17/24 17:42
Neutrophils % 90.3 % (42.2-75.2) H 06/17/24 17:42
Lymphocytes % 5.6 % (20.5-51.1) L 06/17/24 17:42
Monocytes % 2.5 % (1.7-9.3) 06/17/24 17:42
Eosinophils % 0.5 % (0-6) 06/17/24 17:42
Basophils % 0.4 % (0-2) 06/17/24 17:42
Lactic Acid 1.5 mmol/L (0.7-2.0) 06/18/24 02:47
Microbiology Results
Micro:
06/18/24 02:38 MRSA Screen - Pending
Nose
06/17/24 21:56 Blood Culture - Pending
Blood/Venous
06/17/24 21:34 Blood Culture - Pending
Blood/Venous
06/17/24 17:42 Influenza Types A & B (SOFIA) - Final
Nasal Swab Negative for Influenza A & B, NAAT
Negative results must be combined with clinical observations
and patient history.
Nucleic Acid Amplification test (NAAT)performed on the
[employer]ized Tech platform.
06/17/24 Periph Vascular US: No evidence of DVT of the left lower extremity. Nonvisualization of the calf veins
06/17/24 CXR: Extremely low lung volumes with crowding of the central/vascular markings. No focal parenchymal opacification to suggest pneumonia.
Assessment / Plan
# Acute LLE cellulitis
# Sepsis due to cellulitis.
Leukocytosis trending up.
Fever
# Lymphedema - noncompliant with compression
# DM with neuropathy
# Multiple abx allergies including anaphylaxis to PCN
- Follow blood cx's
- Continue daptomycin and meropenem for now.
- Follow CK while on dapto
- Compression
-Moisturize dry skin.
- Follow temps, and wbc.
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
Diabetes mellitus type 2
Neuropathy
Hypertension
CAD status post stents
Carotid artery disease
paroxysmal atrial fibrillation
Watchman procedure
CHF
PAD failed attempt left lower extremity angioplasty
Class III obesity BMI 46.5
SAMIA
Pulmonary HTN
Chronic lymphedema
Asthma
Left groin mass
Insomnia
Rosacea
Nephrolithiasis
Cholecystectomy
Bladder repair
Chronic bilateral heel wounds
Left heel osteomyelitis I+D 01/2024 s/p 6wks meropenem and linezolid
Left shoulder replacement
[2024-06-18 10:18] LABS: Glycohemoglobin (HgbA1c) 7.2 % (4.0-5.6)
[2024-06-18] MEDS: SANTYL OINTMENT 1 APPLIC TOPICAL (11:30)
--- NOTE | 2024-06-18 11:38 | WOUNDNOTE ---
WON RN note: Patient admitted with Sepsis and cellulitis.
See H&P for complete history. Lives at home, daily caregivers and VN.
PMH: Lymphedema, IDDM,obesity, neuropathy, A fib, CHF,HTN, CAD, ulcers on heels, angioplasty, watchman's 2023.
Wound Location and type/assessment: Patient known to service, last seen 02/06/24 for b/l heel wounds. Compared to last seen, wounds on heels much improved. R heel a healing stage 3 PI, L heel healing stage 4 PI. Chronic lymphedema of legs, dry lower
legs. Patient follows with Dr. Galarza, seen last week states patient. Reviewed current wound care/offloading with patient and Dr. Vazquez on consult. Dr. Bansal at bedside and assessed ulcers, agreed to continue same wound care/offloading as
prescribed by Podiatry, will confirm with Dr. Vazquez. Patient turned with assist from PCT, Sacrum intact, blanchable pink, no open wound visible on reported L buttock. Abdominal and breast skin folds with MASD, fungal powder on order.
Appetite: Good. Patient states she gets protein in diet, she is trying to loose weight.
Pressure redistribution devices in place: On [facility] air bed, Called [facility] for Tru[employer]ue lite offloading heel boots and applied. Patient aware can take home upon discharge. Leg elevation when sitting in recliner chair.
Plan: Santyl applied to R heel with adaptic, abd pad and shari. L heel Puracol (collagen dressing) moistened with saline, abd pad and shari applied. Sacral silicone foam applied to sacrum. Fungal powder already on order applied to skin folds.
Ammonium Lactate lotion already on order and applied to lower legs.
Will confirm orders with hospitalist and updated nurse. Updated care plan and will follow as needed.
Note to case management of equipment requested for discharge: air mattress recommended.
Recommend follow up with Food Safety Director.
[2024-06-18 12:11] LABS: Glucose - Point of Care 248 mg/dl (70-99)
[2024-06-18] MEDS: LANOXIN 125 MCG PO (12:21)
[2024-06-18] MEDS: LEVOPHED 250 IV (12:21)
[2024-06-18 14:29] LABS: Glucose - Point of Care 208 mg/dl (70-99)
--- NOTE | 2024-06-18 15:00 | W.PN.HOSP.TC ---
Addendum entered and electronically signed by Sixto Bansal MD 06/18/24 15:17:
#Septic Shock
-see plan below
Original Note:
Today's Communication/Plan
-
cont abx
f/u cultures
compression stockings
o2 as needed
Assessment / Plan
Assessment / Plan
Constitutional: No Acute Distress and Obese
Eyes: No Conjunctival Hemorrhage and Sclera Anicteric
Cardiovascular: Regular Rate and S1/S2
Pulmonary: Clear
Gastrointestinal: Soft, Non Tender, Non Distended and Normal Bowel Sounds
Genito-Urinary: Negative Fitzpatrick or CVA Tenderness
Extremities: Edema (Lynphedema BLE. LLE 4+ edema) and Erythema (LLE erythema from ankle up to groin, + warmth, very dry skin left foot)
Wound: Other (left heel shallow wounds clean, dry, tissue very close to bone but no visible bone. )
Neurological: AO x 3
#Acute lower left extremity cellulitis
#Sepsis due to cellulitis
Follow blood cultures
� Continue daptomycin, meropenem
� Follow-up CK1 daptomycin
� Follow-up temps and white count
#Lymphedema�noncompliant with compression
� Compression therapy
� Moisturize dry skin
# DM with neuropathy
# Multiple abx allergies including anaphylaxis to PCN
#Hypoxia
-worsens with sleeping, suspect SAMIA/OHS along with COPD
-no bronchospasm on auscultation
-will need o2 eval outpt
-patient requiring 2l of oxygen
-continue supplemental oxygen to keep sat >92
-wean as tolerated
-no acute findings on lung imaging
-flu and COVID negative
#anemia of chronic disease
-hgb stable at 11.8
-no active bleeding
-ctm
#Chronic HFpEF
# Pulmonary Hypertension
# Valvular Heart Disease
-hold diuretics for today
- Echo done last in November with normal LVEF, mitral / tricuspid regurg.
#Paroxysmal atrial fibrillation -on digoxin/metoprolol
#COPD
-nebs from home continued
-Singulair continued
-o2 as above
#IDDM
-lantus 3u at hs
-hold metformin
-sliding scale
-CHO diet
#Hypothyroidism
-levothyroxine continued
#s/p L Reverse Shoulder Arthroplasty on 12/12/23 - f/u with ortho in office
#GERD
-PPI continued
#depression
-sertraline continued
#essential htn
-verapamil continued with hold parameter
#HLD
-statin,fenofibrate continued
#Morbid Obesity due to excess calories, BMI 46.7
DVT Prophylaxis: Lovenox
Code Status: Full
Total time spent on today's encounter was 50 minutes which included time spent in counseling the patient/family regarding diagnosis and treatment plan as listed above, goals of care, and symptom management. Case was discussed with nursing staff,
specialists, and care coordinators/case management. All labs and imaging personally reviewed by me. Remainder the time spent in detailed review of previous records, lab data, imaging, and other medical provider documentation.
Anticipated Discharge: > 48 hours
Subjective/Interval History
-
Date of Service: June 18, 2024
no acute events
Objective Data
-
Labs:
Laboratory Results
06/18/24
02:47
WBC 25.2 H
Hgb 11.1 L
Hct 35.0 L
Plt Count 288
Vital Signs:
Vital Signs
Temp Pulse Resp BP Pulse Ox
97.3 F 104 19 122/55 95
06/18/24 07:05 06/18/24 14:30 06/18/24 14:30 06/18/24 14:30 06/18/24 12:30
I&O
06/17/24 06/18/24 06/19/24
06:59 06:59 06:59
Output Total 300 / 300
Balance -300 / -300
Review of Systems
-
History Source: Patient
All other systems: Not reviewed unless documented
Data Reviewed
-
Ultrasound: Report Reviewed by me
Labs: Labs Reviewed by me
--- NOTE | 2024-06-18 15:13 | PTCARENOTE ---
Patient AAOx3, pleasant. No complaints. Weaned to 3L NC, tolerating at 94%. Will continue to wean. Afib on monitor. BPs soft, levo currently at 4mcg/min. +4 LLE edema, +3 RLE edema. WOCN performed would care earlier. Midline in place. Patient making
needs known. Continuing to closely monitor patient.
--- NOTE | 2024-06-18 15:13 | CM ---
CM following re: discharge planning.
Reviewed pt'schart, met with pt.
Pt is a 73 year old female, admitted with primary dx of Sepsis.
Pt reports she lives with son and his family 2SH, 1 step to enter, has a w/c ramp, stays on the 1st floor. Pt reports she has a w/c, walker, shower chair, stair glide, hospital bed. Pt reports she is known to [facility]. Pt reports she was at
[facility] from December till March last year and pt made it very clear she will never ever go to a SNF again. Pt is requested to return back home at discharge with [facility].
PCP: Brooks
Pharmacy: [facility].
D/C plan: per p[t's strong request, home with [facility] and family support.
CM will follow with discharge plan updates as hospitalization progresses
[2024-06-18 16:33] LABS: Creatine Phosphokinase 43 U/L (30-135)
[2024-06-18] MEDS: LOVENOX 40 MG SC (17:38)
[2024-06-18] MEDS: NOVOLOG FLEXPEN-LOW RESISTANCE 3 UNITS SC (18:35)
[2024-06-18] MEDS: OCEAN, SALINE MIST 2 SPRAYS NASAL (18:35)
[2024-06-18 18:46] LABS: Glucose - Point of Care 262 mg/dl (70-99)
[2024-06-18] MEDS: ProAIR HFA INHALER 2 PUFF INH (19:50)
[2024-06-18] MEDS: CUBICIN 10 MG IV (19:54)
[2024-06-18] MEDS: LAC HYDRIN, AM LACTIN LOTION 1 APPLIC TOPICAL (19:55)
[2024-06-18] MEDS: TYLENOL 650 MG PO (21:03)
[2024-06-18 21:15] LABS: Glucose - Point of Care 205 mg/dl (70-99)
[2024-06-19] VITALS (24 sets, daily range): BP systolic 91–119; BP diastolic 45–90; BMI 47.1
[2024-06-19] MEDS: SYNTHROID 125 MCG PO (04:19)
[2024-06-19 04:59] LABS: Hematocrit 30.4 % (37.0-47.0); Hemoglobin 9.6 g/dL (12.0-16.0); Mean Corp Hgb Conc. 31.6 g/dL (33.0-37.0); Mean Corpuscular Hgb 26.4 pg (27.0-31.0); Mean Corpuscular Volume 83.5 fL (81.0-99.0); Mean Platelet Volume 10.1 fL (7.4-10.4); Platelet Count 225 10^3/uL (130-400); Red Blood Cell Count 3.64 10^6/uL (4.20-5.40); Red Cell Dist. Width 15.1 % (11.5-14.5); White Blood Cell Count 16.8 10^3/uL (4.8-10.8)
[2024-06-19 05:06] LABS: ALT (SGPT) < 10 U/L (0-35); AST (SGOT) 13 U/L (14-36); Alkaline Phosphatase 78 U/L (38-126); Blood Urea Nitrogen 38 mg/dl (7-17); Calcium 8.5 mg/dl (8.4-10.2); Carbon Dioxide 27 mmol/L (22-30); Chloride 99 mmol/L (98-107); Estimated Creatinine Clearance 68 ml/min; Glucose 142 mg/dl (70-99); Potassium 3.8 mmol/L (3.5-5.1); Sodium 134 mmol/L (135-145); Total Bilirubin 0.7 mg/dl (0.2-1.3); Total Protein 5.6 g/dl (6.3-8.2); eGFR > 60.00
--- NOTE | 2024-06-19 05:44 | PTCARENOTE ---
Caring for patient overnight. No assessment changes. Remained off levo overnight. Q2T. Denied pain. LLE still swollen & red, elevated on pillows. 4LNC, afib on monitor 120's. NO other issues, will monitor.
[2024-06-19] MEDS: MERREM 500 MG IV (06:25)
[2024-06-19] MEDS: STERILE WATER FOR INJECTION 10 ML IV (06:25)
[2024-06-19] MEDS: NEURONTIN 300 MG PO ×2 (08:26→21:01)
[2024-06-19] MEDS: PROTONIX 40 MG PO (08:26)
[2024-06-19] MEDS: CALAN EXTENDED RELEASE 240 MG PO (08:26)
[2024-06-19] MEDS: TOPROL XL 25 MG PO (08:26)
[2024-06-19] MEDS: SINGULAIR 10 MG PO (08:26)
[2024-06-19] MEDS: SANTYL OINTMENT 1 APPLIC TOPICAL (08:29)
[2024-06-19] MEDS: LAC HYDRIN, AM LACTIN LOTION 1 APPLIC TOPICAL ×2 (08:31→21:02)
[2024-06-19] MEDS: DESENEX/MITRAZOL/ZEASORB 1 APPLIC TOPICAL ×2 (08:32→21:01)
[2024-06-19] MEDS: ASPIR LOW (ENTERIC COATED) 81 MG PO (08:37)
[2024-06-19] MEDS: NOVOLOG FLEXPEN-LOW RESISTANCE SC ×2 (08:37→12:46)
[2024-06-19 08:40] LABS: Glucose - Point of Care 142 mg/dl (70-99)
--- NOTE | 2024-06-19 10:49 | PN.CDI ---
CDI
- -
CDI:
Physician Documentation Request
Admit Date: 06/17/24 21:19
Dear Doctor Nimisha,
Patient admitted for sepsis.
06/18 Hospitalist PN: 'Wound: Other (left heel shallow wounds clean, dry, tissue very close to bone but no visible bone.)'
06/18 Wound Care Note: 'R heel a healing stage 3 PI, L heel healing stage 4 PI. '
Physician documentation of the type and location of wounds is required for compliant documentation. Based on the above clinical findings and your assessment, please provide the following in your progress note:
1. Location of the ulcer/wound, including laterality.
2. Type (etiology) of ulcer/wound:
- Diabetic ulcer
- Arterial (ischemic) ulcer
- Traumatic wound
- Venous stasis ulcer
- Pressure (decubitus) ulcer
- Non-healing surgical wound
- Other
- Unable to determine
3. For a non-pressure ulcer, please indicate the depth/severity:
- Limited to the breakdown of skin
- With fat layer exposed
- With necrosis of muscle
- With necrosis of bone
- Other
- Unable to determine
4. If a pressure ulcer, please also include the stage* of the ulcer:
- Stage 1 - Skin intact, non-blanchable redness
- Stage 2 - Partial thickness loss of dermis, includes intact or open blister
- Stage 3 - Full thickness tissue not including bone, tendon or muscle
- Stage 4 - Full thickness tissue loss, including exposed bone, tendon or muscle
- Unstageable - Full thickness loss in which the base of the ulcer is covered by slough (yellow, platt, watts, green or brown) and/or eschar (platt, brown or black) in the wound bed.
- Unable to determine
Use of terms such as suspected, likely, concern for, or probable (associated with a specific diagnosis that is being evaluated, monitored, or treated as if it exists) are acceptable and can be coded in the inpatient setting, when documented at the
time of discharge.
Thank you,
Sarai Zepeda RN, BSN
CDI Specialist
Available via [place] text
Please use your independent medical judgment in providing your response.
*Source: National Pressure Ulcer Advisory Panel (NPUAP)
--- NOTE | 2024-06-19 12:26 | W.PN.ID1 ---
Date of Service
Date of Service: June 19, 2024
Today's Communication
DC meropenem.
Continue daptomycin.
Assessment / Plan
# Acute LLE cellulitis
# Sepsis due to cellulitis.
Leukocytosis trending down
Fever trending down
# Lymphedema - noncompliant with compression
# DM with neuropathy
# Multiple abx allergies including anaphylaxis to PCN
- blood cx's x 2 neg to date
- Continue daptomycin 500mg iv q24. CK normal
-DC meropenem
- Follow temps, and wbc.
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
Diabetes mellitus type 2
Neuropathy
Hypertension
CAD status post stents
Carotid artery disease
paroxysmal atrial fibrillation
Watchman procedure
CHF
PAD failed attempt left lower extremity angioplasty
Class III obesity BMI 46.5
SAMIA
Pulmonary HTN
Chronic lymphedema
Asthma
Left groin mass
Insomnia
Rosacea
Nephrolithiasis
Cholecystectomy
Bladder repair
Chronic bilateral heel wounds
Left heel osteomyelitis I+D 01/2024 s/p 6wks meropenem and linezolid
Left shoulder replacement
Chief Complaint
-: Cellulitis
Vital Signs / Physical Exam
Vital Signs
Vital Signs
Temp Pulse Resp BP Pulse Ox
98.3 F 132 23 116/55 94
06/19/24 11:13 06/19/24 07:00 06/19/24 07:00 06/19/24 07:00 06/19/24 07:49
Selected Entries
06/18/24
22:56
Temp 100.6 F H
Physical Exam
Constitutional: No Acute Distress
Cardiovascular: Regular Rate and S1/S2
Pulmonary: Clear
Gastrointestinal: Soft, Non Tender and Non Distended
Extremities: Edema (LLE>RLE lymphedema) and Erythema (LLE erythema decreased, receding from thigh)
Objective Data
Lab Data
Lab Results
06/19/24 04:16
06/19/24 04:16
Estimated Creat Clear 68 ml/min 06/19/24 04:16
Lactic Acid 1.5 mmol/L (0.7-2.0) 06/18/24 02:47
Total Bilirubin 0.7 mg/dl (0.2-1.3) 06/19/24 04:16
AST 13 U/L (14-36) L 06/19/24 04:16
ALT < 10 U/L (0-35) 06/19/24 04:16
Alkaline Phosphatase 78 U/L (38-126) 06/19/24 04:16
Most recent labs reviewed.
Micro Results:
06/18/24 02:38 MRSA Screen - Final
Nose No Methicillin Resistant Staphylococcus aureus isolated.
06/17/24 21:56 Blood Culture - Preliminary
Blood/Venous No Growth in 24 hours- Final report to follow
06/17/24 21:34 Blood Culture - Preliminary
Blood/Venous No Growth in 24 hours- Final report to follow
06/17/24 17:42 Influenza Types A & B (SOFIA) - Final
Nasal Swab Negative for Influenza A & B, NAAT
Negative results must be combined with clinical observations
and patient history.
Nucleic Acid Amplification test (NAAT)performed on the
[employer] platform.
06/17/24 Periph Vascular US: No evidence of DVT of the left lower extremity. Nonvisualization of the calf veins
06/17/24 CXR: Extremely low lung volumes with crowding of the central/vascular markings. No focal parenchymal opacification to suggest pneumonia.
[2024-06-19] MEDS: MERREM IV (13:02)
[2024-06-19] MEDS: STERILE WATER FOR INJECTION IV (13:03)
[2024-06-19] MEDS: LANOXIN 125 MCG PO (13:07)
--- NOTE | 2024-06-19 14:20 | W.PN.HOSP.TC ---
Today's Communication/Plan
-
f/u cultures
daptomycin
Assessment / Plan
Assessment / Plan
Constitutional: No Acute Distress and Obese
Eyes: No Conjunctival Hemorrhage and Sclera Anicteric
Cardiovascular: Regular Rate and S1/S2
Pulmonary: Clear
Gastrointestinal: Soft, Non Tender, Non Distended and Normal Bowel Sounds
Genito-Urinary: Negative Fitzpatrick or CVA Tenderness
Extremities: Edema (Lynphedema BLE. LLE 4+ edema) and Erythema (LLE erythema from ankle up to groin, + warmth, very dry skin left foot)
Wound: Other (left heel shallow wounds clean, dry, tissue very close to bone but no visible bone. )
Neurological: AO x 3
#Acute lower left extremity cellulitis
#Sepsis due to cellulitis
Follow blood cultures
� Continue daptomycin, discontinue meropenem
� Follow-up CK1 daptomycin
� Follow-up temps and white count
#Lymphedema�noncompliant with compression
� Compression therapy
� Moisturize dry skin
# DM with neuropathy
#Hyponatremia
� Monitor
# Multiple abx allergies including anaphylaxis to PCN
#Hypoxia
-worsens with sleeping, suspect SAMIA/OHS along with COPD; hypoxia I suspect has been longstanding
-no bronchospasm on auscultation
-will need o2 eval outpt
-patient requiring 2l of oxygen
-continue supplemental oxygen to keep sat >92
-wean as tolerated
-no acute findings on lung imaging
-flu and COVID negative
#anemia of chronic disease
-hgb stable at 11.8
-no active bleeding
-ctm
#Chronic HFpEF
# Pulmonary Hypertension
# Valvular Heart Disease
-hold diuretics for today; may restart parag
- Echo done last in November with normal LVEF, mitral / tricuspid regurg.
#Paroxysmal atrial fibrillation -on digoxin/metoprolol
#COPD
-nebs from home continued
-Singulair continued
-o2 as above
#IDDM
-lantus 3u at hs
-hold metformin
-sliding scale
-CHO diet
#Hypothyroidism
-levothyroxine continued
#s/p L Reverse Shoulder Arthroplasty on 12/12/23 - f/u with ortho in office
#GERD
-PPI continued
#depression
-sertraline continued
#essential htn
-verapamil continued with hold parameter
#HLD
-statin,fenofibrate continued
#Morbid Obesity due to excess calories, BMI 46.7
DVT Prophylaxis: Lovenox
Code Status: Full
Anticipated Discharge: Within 24 hours
Subjective/Interval History
-
Date of Service: June 19, 2024
No acute events overnight
Objective Data
-
Labs:
Laboratory Results
06/19/24
04:16
WBC 16.8 H
Hgb 9.6 L
Hct 30.4 L
Plt Count 225 D
Sodium 134 L
Potassium 3.8
Chloride 99
Carbon Dioxide 27
BUN 38 H
Creatinine 0.9
Glucose 142 H
Calcium 8.5
Total Bilirubin 0.7
AST 13 L
ALT < 10
Alkaline Phosphatase 78
Vital Signs:
Vital Signs
Temp Pulse Resp BP Pulse Ox
98.3 F 96 24 104/49 91
06/19/24 11:13 06/19/24 13:07 06/19/24 12:00 06/19/24 12:00 06/19/24 12:00
I&O
06/18/24 06/19/24 06/20/24
06:59 06:59 06:59
Intake Total 240 / 240
Output Total 300 / 300
Balance -300 / -300 240 / 240
Review of Systems
-
History Source: Patient
All other systems: Not reviewed unless documented
Data Reviewed
-
Ultrasound: Report Reviewed by me
Labs: Labs Reviewed by me
[2024-06-19 14:52] LABS: Glucose - Point of Care 251 mg/dl (70-99)
[2024-06-19] MEDS: NOVOLOG FLEXPEN-LOW RESISTANCE 3 UNITS SC ×2 (15:54→18:17)
[2024-06-19] MEDS: TYLENOL 650 MG PO (16:14)
[2024-06-19] MEDS: ProAIR HFA INHALER 2 PUFF INH ×2 (16:31→19:47)
[2024-06-19 16:47] LABS: Urine Albumin Trace (Neg - Trace); Urine Bilirubin 1+ (Negative); Urine Character Clear (Clear); Urine Color Yellow; Urine Glucose Negative (Negative); Urine Ketone Negative (Negative); Urine Leukocyte 1+ (Negative); Urine Nitrite Negative (Negative); Urine Occult Blood Negative (Negative); Urine Specific Gravity 1.015 (<1.030); Urine Urobilinogen Negative (Neg - 1+)
[2024-06-19 17:05] LABS: Urine Bacteria Many (Negative); Urine Red Blood Cell 0-2 /HPF (0-2); Urine Squamous Cell >30 /LPF (Few); Urine White Cell 50-60 /HPF (0-5)
[2024-06-19 17:51] LABS: Glucose - Point of Care 267 mg/dl (70-99)
--- NOTE | 2024-06-19 18:05 | PTCARENOTE ---
Patient 1 weaned down to 3L from 4L sp02 93%-95%lungs coarse throughout.Tachypneic at times. Afib on monitor 90-low 100's. Urine sample obtained as per patient's request via straight cath. Bilateral heel wounds. Fiber filled boots on as per MD
order. Patient AAO X 3, using call duque appropriately.
[2024-06-19] MEDS: LOVENOX 40 MG SC (18:25)
[2024-06-19] MEDS: ZOLOFT 50 MG PO (21:01)
[2024-06-19] MEDS: TRICOR 48 MG PO (21:01)
[2024-06-19] MEDS: LIPITOR 40 MG PO (21:01)
[2024-06-19] MEDS: CUBICIN 10 MG IV (21:01)
[2024-06-19 22:07] LABS: Glucose - Point of Care 308 mg/dl (70-99)
[2024-06-19] MEDS: LANTUS 0.03 UNITS SC (22:08)
[2024-06-20] VITALS (24 sets, daily range): BP systolic 92–122; BP diastolic 40–83; BMI 47.9
--- NOTE | 2024-06-20 01:21 | PTCARENOTE ---
Received patient from previous RN. Patient Aox3 and on 3L sating at 97%. Afib on monitor. Bilateral heel wound, patient wearing fiber filled boots. Purewick in place draining hung urine. Patient resting im bed with call duque in reach. Assessment
and VS as documented.
[2024-06-20] MEDS: SYNTHROID 125 MCG PO (05:23)
[2024-06-20 05:53] LABS: Hematocrit 29.3 % (37.0-47.0); Hemoglobin 9.2 g/dL (12.0-16.0); Mean Corp Hgb Conc. 31.4 g/dL (33.0-37.0); Mean Corpuscular Hgb 26.1 pg (27.0-31.0); Mean Platelet Volume 9.7 fL (7.4-10.4); Platelet Count 218 10^3/uL (130-400); Red Blood Cell Count 3.53 10^6/uL (4.20-5.40); White Blood Cell Count 12.9 10^3/uL (4.8-10.8)
[2024-06-20 06:17] LABS: ALT (SGPT) < 10 U/L (0-35); AST (SGOT) 13 U/L (14-36); Albumin 2.9 g/dl (3.5-5.0); Alkaline Phosphatase 95 U/L (38-126); Blood Urea Nitrogen 46 mg/dl (7-17); Calcium 8.5 mg/dl (8.4-10.2); Carbon Dioxide 24 mmol/L (22-30); Chloride 99 mmol/L (98-107); Estimated Creatinine Clearance 62 ml/min; Glucose 211 mg/dl (70-99); Sodium 133 mmol/L (135-145); Total Bilirubin 0.5 mg/dl (0.2-1.3); Total Protein 5.7 g/dl (6.3-8.2); eGFR 58.75
[2024-06-20] MEDS: ProAIR HFA INHALER 2 PUFF INH ×2 (08:12→19:47)
[2024-06-20 08:32] LABS: Glucose - Point of Care 231 mg/dl (70-99)
[2024-06-20] MEDS: ASPIR LOW (ENTERIC COATED) 81 MG PO (08:55)
[2024-06-20] MEDS: TOPROL XL 25 MG PO (08:55)
[2024-06-20] MEDS: LAC HYDRIN, AM LACTIN LOTION 1 APPLIC TOPICAL ×2 (08:55→20:28)
[2024-06-20] MEDS: NEURONTIN 300 MG PO ×2 (08:55→20:27)
[2024-06-20] MEDS: SANTYL OINTMENT 1 APPLIC TOPICAL (08:55)
[2024-06-20] MEDS: SINGULAIR 10 MG PO (08:55)
[2024-06-20] MEDS: CALAN EXTENDED RELEASE 240 MG PO (08:55)
[2024-06-20] MEDS: PROTONIX 40 MG PO (08:55)
[2024-06-20] MEDS: DESENEX/MITRAZOL/ZEASORB 1 APPLIC TOPICAL ×2 (08:56→20:27)
[2024-06-20] MEDS: NOVOLOG FLEXPEN-LOW RESISTANCE 2 UNITS SC ×3 (08:56→17:42)
--- NOTE | 2024-06-20 09:55 | W.PN.ID1 ---
Date of Service
Date of Service: June 20, 2024
Today's Communication
See below.
Assessment / Plan
# Acute LLE cellulitis - improving
# Sepsis due to cellulitis.
Leukocytosis trending down
Fever resolved
# Lymphedema - noncompliant with compression
# DM with neuropathy
# Multiple abx allergies including anaphylaxis to PCN
- blood cx's x 2 neg to date
- Continue daptomycin 500mg iv q24 (d4). CK normal
- Follow wbc.
- Pt cannot drive which limits her ability to go to lymphedema clinic.
- Compression with Tubigrips
# Chronic dysuria
# Suspect interstitial cystitis
- Symptoms persist despite on appropriate abx
- Pt does not drive which limits her ability to go for Urology eval.
- Trial of Estrace vaginal cream 3x/week.
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
Diabetes mellitus type 2
Neuropathy
Hypertension
CAD status post stents
Carotid artery disease
paroxysmal atrial fibrillation
Watchman procedure
CHF
PAD failed attempt left lower extremity angioplasty
Class III obesity BMI 46.5
SAMIA
Pulmonary HTN
Chronic lymphedema
Asthma
Left groin mass
Insomnia
Rosacea
Nephrolithiasis
Cholecystectomy
Bladder repair
Chronic bilateral heel wounds
Left heel osteomyelitis I+D 01/2024 s/p 6wks meropenem and linezolid
Left shoulder replacement
Chief Complaint
-: Cellulitis
Subjective / Review of Systems
Leg is better.
Chronic dysuria persists.
Vital Signs / Physical Exam
Vital Signs
Vital Signs
Temp Pulse Resp BP Pulse Ox
97.8 F 117 18 111/63 97
06/20/24 07:40 06/20/24 08:15 06/20/24 08:15 06/20/24 04:00 06/20/24 08:15
Physical Exam
Constitutional: Comfortable
Cardiovascular: Regular Rate and S1/S2
Pulmonary: Clear
Gastrointestinal: Soft, Non Tender and Non Distended
Extremities: Edema (LLE decreasd) and Erythema (LLE decreasing, less warmth. )
Neurological: AO x 3
Objective Data
Lab Data
Lab Results
06/20/24 05:34
06/20/24 05:34
Estimated Creat Clear 62 ml/min 06/20/24 05:34
Lactic Acid 1.5 mmol/L (0.7-2.0) 06/18/24 02:47
Total Bilirubin 0.5 mg/dl (0.2-1.3) 06/20/24 05:34
AST 13 U/L (14-36) L 06/20/24 05:34
ALT < 10 U/L (0-35) 06/20/24 05:34
Alkaline Phosphatase 95 U/L (38-126) 06/20/24 05:34
Most recent labs reviewed.
Micro Results:
06/17/24 21:56 Blood Culture - Preliminary
Blood/Venous No Growth in 48 hours- Final report to follow
06/17/24 21:34 Blood Culture - Preliminary
Blood/Venous No Growth in 48 hours- Final report to follow
06/19/24 16:29 Urine Culture - Pending
Urine
06/18/24 02:38 MRSA Screen - Final
Nose No Methicillin Resistant Staphylococcus aureus isolated.
06/17/24 17:42 Influenza Types A & B (SOFIA) - Final
Nasal Swab Negative for Influenza A & B, NAAT
Negative results must be combined with clinical observations
and patient history.
Nucleic Acid Amplification test (NAAT)performed on the
[employer] platform.
06/17/24 Periph Vascular US: No evidence of DVT of the left lower extremity. Nonvisualization of the calf veins
06/17/24 CXR: Extremely low lung volumes with crowding of the central/vascular markings. No focal parenchymal opacification to suggest pneumonia.
--- NOTE | 2024-06-20 10:30 | PTCARENOTE ---
Patient AAOx3. Weaned to 2L NC, sats currently 93%. Afib on monitor, VSS. Blood sugars elevated, patient c/o excessive thirst, will discuss with MD on rounds. Still with +4 LLE, +3 RLE edema. Patient making needs known. Will closely monitor.
--- NOTE | 2024-06-20 10:38 | CM ---
Patient with Hx Lymphedema here with Dx LLE cellulitis & sepsis. Elevated HR today. O2 3L. Receiving IV Daptomycin, Insulin gtt. Seen by wound care nurse- air mattress recommended. TruVue lite offloading heel boots. Per nurse assessment; A/O.
Spoke with patient's son Amanuel; he confirmed that the patient has a hospital bed but no air mattress- he agrees with CM ordering and thinks bed rental is through [email or web address]. Patient rents hospital bed and w/c but no longer has home O2 in
place. Informed son would request PT. He would like the patient to have [facility] again at d/c. Son requesting a call from the doctor---> message to Dr Bansal.
Message to Dr Bansal requesting PT Eval.
Spoke with [facility] [email or web address]; they only supply the w/c rental. She was able to look up rental for the hospital bed which is through [employer] - air mattress needs to be ordered through same company as the bed.
Spoke with [facility] [employer] (ph [phone] or [phone] Option 1); the patient will not qualify for a low air loss mattress under her insurance as the wounds would need to be on the trunk or sacrum not the heels. She would qualify for MAGDALENA
mattress with Dx osteomyelitis & cellulitis. Cost is otherwise $300 without insurance. Script and documents can be sent to fax [phone] attention Intake.
Plan referral for air mattress once MD documentation is received.
Plan referral to [facility] once seen by PT.
Plan watch for O2 needs at discharge.
Plan home with [facility] and air mattress.
--- NOTE | 2024-06-20 12:05 | CM ---
Patient with Hx Lymphedema here with Dx LLE cellulitis & sepsis. Elevated HR today. O2 3L. Receiving IV Daptomycin. Seen by wound care nurse- air mattress recommended. TruVue lite offloading heel boots. Per nurse assessment; A/O.
Spoke with patient's son Amanuel; he confirmed that the patient has a hospital bed but no air mattress- he agrees with CM ordering and thinks bed rental is through [employer]. Patient rents hospital bed and w/c but no longer has home O2 in
place. Informed son would request PT. He would like the patient to have [facility] again at d/c. Son requesting a call from the doctor---> message to Dr Bansal.
Message to Dr Bansal requesting PT Eval.
Spoke with [facility] [employer]; they only supply the w/c rental. She was able to look up rental for the hospital bed which is through [employer] - air mattress needs to be ordered through same company as the bed.
Spoke with [facility] [employer] ([place] [phone] or [phone] Option 1); the patient will not qualify for a low air loss mattress under her insurance as the wounds would need to be on the trunk or sacrum not the heels. She would qualify for MAGDALENA
mattress with Dx osteomyelitis & cellulitis. Cost is otherwise $300 without insurance. Script and documents can be sent to fax [phone] attention Intake.
Plan referral for air mattress once MD documentation is received.
Plan referral to [facility] once seen by PT.
Plan watch for O2 needs at discharge.
Plan home with [facility] and air mattress.
[2024-06-20 12:48] LABS: Glucose - Point of Care 219 mg/dl (70-99)
--- NOTE | 2024-06-20 12:50 | WOUNDNOTE ---
WOC RN note: Dr. Galarza requested this pattern chart writer to place an order for patient for bilateral knee high tubigrip or Erik wraps (with light compression); remove q hs; reapply q am. Care plan and discharge instructions updated.
[2024-06-20] MEDS: LANOXIN 125 MCG PO (13:10)
--- NOTE | 2024-06-20 14:42 | W.PN.HOSP.TC ---
Addendum entered and electronically signed by Sixto Bansal MD 06/20/24 15:18:
R heel a healing stage 3 PI, L heel healing stage 4 PI.
Original Note:
Today's Communication/Plan
-
cont daptomycin
f/u wbc
tubigrips
wean o2
Estrace vaginal cream
Assessment / Plan
Assessment / Plan
Constitutional: No Acute Distress and Obese
Eyes: No Conjunctival Hemorrhage and Sclera Anicteric
Cardiovascular: Regular Rate and S1/S2
Pulmonary: Clear
Gastrointestinal: Soft, Non Tender, Non Distended and Normal Bowel Sounds
Genito-Urinary: Negative Fitzpatrick or CVA Tenderness
Extremities: Edema (Lynphedema BLE. LLE 4+ edema) and Erythema (LLE erythema from ankle up to groin, + warmth, very dry skin left foot)
Wound: Other (left heel shallow wounds clean, dry, tissue very close to bone but no visible bone. )
Neurological: AO x 3
#Acute lower left extremity cellulitis
#Sepsis due to cellulitis
Follow blood cultures
� Continue daptomycin, discontinue meropenem
� Follow-up CK1 on daptomycin
� Follow-up temps and white count
#Lymphedema�noncompliant with compression
� Compression therapy
� Moisturize dry skin
-tubigrips
# DM with neuropathy
#Hyponatremia
� Monitor
# Multiple abx allergies including anaphylaxis to PCN
#chronic dysuria
-estradiol ointment
#Hypoxia
-worsens with sleeping, suspect SAMIA/OHS along with COPD; hypoxia I suspect has been longstanding
-no bronchospasm on auscultation
-will need o2 eval outpt
-patient requiring 2l of oxygen
-continue supplemental oxygen to keep sat >92
-wean as tolerated
-no acute findings on lung imaging
-flu and COVID negative
#anemia of chronic disease
-hgb stable at 11.8
-no active bleeding
-ctm
#Chronic HFpEF
# Pulmonary Hypertension
# Valvular Heart Disease
-hold diuretics for today; may restart parag
- Echo done last in November with normal LVEF, mitral / tricuspid regurg.
#Paroxysmal atrial fibrillation -on digoxin/metoprolol
#COPD
-nebs from home continued
-Singulair continued
-o2 as above
#IDDM
-lantus 3u at hs
-hold metformin
-sliding scale
-CHO diet
#Hypothyroidism
-levothyroxine continued
#s/p L Reverse Shoulder Arthroplasty on 12/12/23 - f/u with ortho in office
#GERD
-PPI continued
#depression
-sertraline continued
#essential htn
-verapamil continued with hold parameter
#HLD
-statin,fenofibrate continued
#Morbid Obesity due to excess calories, BMI 46.7
DVT Prophylaxis: Lovenox
Code Status: Full
Anticipated Discharge: Within 24 hours
Subjective/Interval History
-
Date of Service: June 20, 2024
Chronic dysuria
Objective Data
-
Labs:
Laboratory Results
06/20/24
05:34
WBC 12.9 H
Hgb 9.2 L
Hct 29.3 L
Plt Count 218
Sodium 133 L
Potassium 4.0
Chloride 99
Carbon Dioxide 24
BUN 46 H
Creatinine 1.0
Glucose 211 H
Calcium 8.5
Total Bilirubin 0.5
AST 13 L
ALT < 10
Alkaline Phosphatase 95
Vital Signs:
Vital Signs
Temp Pulse Resp BP Pulse Ox
98.4 F 88 29 103/83 94
06/20/24 11:44 06/20/24 13:10 06/20/24 10:00 06/20/24 10:00 06/20/24 09:00
I&O
06/19/24 06/20/24 06/21/24
06:59 06:59 06:59
Intake Total 240 / 240
Output Total 575 / 575 700 / 700
Balance -335 / -335 -700 / -700
Review of Systems
-
History Source: Patient
All other systems: Not reviewed unless documented
Physical Exam
-
General: Negative Appears in Distress
HEENT: Oxygen
Respiratory: Clear to Auscultation
GI: Soft, Nontender and Nondistended
Skin: Warm and Dry
Neuro: Awake, Alert and Oriented
Data Reviewed
-
Ultrasound: Report Reviewed by me
Labs: Labs Reviewed by me
--- NOTE | 2024-06-20 15:46 | W.CS.POD ---
Consult Summary - Podiatry
-
73 year old with PMH for atrial fib, asthma, CAD, CHF, HTn, HLD, IDDM, PR, hypothyroidism, lymphedema presented to the hosp with fever, chills and sepsis. she is known to my practice very well, She multiple times heel ulcerations and had length
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
ulcerations to both heels patient has chronic lymphedema, non compliant in using any compression therapy. denied chest pain, sob,
Improved WBC count 23 > 12
Exam : B/L lower legs with chronic indurated lymphedema
b/l feet pink, warm, good CFT. well perfused
B/L heel ulcerations healing well, no drainage, clean, granular base, no exposed bone, no deep tunneling noted.
A/P: Resolving LT lower leg cellultis
Chronic Lymphedema b/l lower legs
diabetic heel ulcerations stable
Resolved leukocytosis
Plan : ;IV abx per ID
Will cont with local wound care to b/l heels daily once with dry, gauze, shari ans compressions to lower legs with Tubigrip stockings and leighton warps
Heel relief boots when she is in bed at all times
She will f/u in my office in 2 -3 wks after discharge .
No surgical intervention by podiatry
[2024-06-20 17:14] LABS: Glucose - Point of Care 237 mg/dl (70-99)
[2024-06-20] MEDS: LOVENOX 40 MG SC (17:42)
[2024-06-20] MEDS: ZOLOFT 50 MG PO (20:27)
[2024-06-20] MEDS: CUBICIN 10 MG IV (20:27)
[2024-06-20] MEDS: LIPITOR 40 MG PO (20:27)
[2024-06-20] MEDS: TRICOR 48 MG PO (20:27)
[2024-06-20] MEDS: ESTRACE 0.01% VAGINAL CREAM 1 APPLIC VAG (20:27)
[2024-06-20 21:26] LABS: Glucose - Point of Care 275 mg/dl (70-99)
[2024-06-20] MEDS: LANTUS 0.03 UNITS SC (21:41)
[2024-06-21] VITALS (22 sets, daily range): BP systolic 98–123; BP diastolic 46–69; BMI 47.9
--- NOTE | 2024-06-21 00:20 | PTCARENOTE ---
Patient Aox3 and Afib on monitor. Patient on 2L o2, sating at 94%. Patient having high blood sugar, last one 275, lantis given see AUG. Bilateral LE edema +4, pulses present with doppler. purewick in place draining hung urine. Patient resting in
bed, with call duque in reach.
[2024-06-21] MEDS: ProAIR HFA INHALER 2 PUFF INH ×3 (01:10→19:19)
[2024-06-21] MEDS: SYNTHROID 125 MCG PO (05:05)
[2024-06-21 05:28] LABS: Hematocrit 28.3 % (37.0-47.0); Hemoglobin 8.8 g/dL (12.0-16.0); Mean Corp Hgb Conc. 31.1 g/dL (33.0-37.0); Mean Corpuscular Hgb 25.8 pg (27.0-31.0); Mean Platelet Volume 9.9 fL (7.4-10.4); Platelet Count 225 10^3/uL (130-400); Red Blood Cell Count 3.41 10^6/uL (4.20-5.40); Red Cell Dist. Width 14.9 % (11.5-14.5)
[2024-06-21 05:50] LABS: ALT (SGPT) < 10 U/L (0-35); AST (SGOT) 12 U/L (14-36); Albumin 2.9 g/dl (3.5-5.0); Alkaline Phosphatase 89 U/L (38-126); Blood Urea Nitrogen 42 mg/dl (7-17); Calcium 8.7 mg/dl (8.4-10.2); Carbon Dioxide 28 mmol/L (22-30); Chloride 99 mmol/L (98-107); Estimated Creatinine Clearance 69 ml/min; Glucose 145 mg/dl (70-99); Potassium 3.9 mmol/L (3.5-5.1); Sodium 134 mmol/L (135-145); Total Bilirubin 0.4 mg/dl (0.2-1.3); Total Protein 5.6 g/dl (6.3-8.2); eGFR > 60.00
[2024-06-21 08:09] LABS: Glucose - Point of Care 138 mg/dl (70-99)
--- NOTE | 2024-06-21 09:19 | W.PN.ID1 ---
Date of Service
Date of Service: June 21, 2024
Today's Communication
Transition daptomycin 500mg iv q24 (d4) to Linezolid 600mg po bid through 06/26/24
Hold sertraline while on Linezolid.
See below.
Assessment / Plan
# Acute LLE cellulitis - improving
# s/p Sepsis due to cellulitis.
# Lymphedema - hx noncompliant with compression
# DM with neuropathy
# Multiple abx allergies including anaphylaxis to PCN
- blood cx's x 2 neg to date
- Pt cannot drive which limits her ability to go to lymphedema clinic.
- Discussed importance of Compression with Tubigrips or NILAY-WRAP
- Transition daptomycin 500mg iv q24 (d4) to Linezolid 600mg po bid through 06/26/24
Hold sertraline while on Linezolid.
Avoid tyramine-rich foods while on Linezolid.
Counselling provided.
# Chronic dysuria
# Suspect interstitial cystitis
- Symptoms persist despite NEGATIVE Ucx.
- Trial of Estrace vaginal cream 3x/week.
- Should see Urologist (Dr. Julien)
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
Diabetes mellitus type 2
Neuropathy
Hypertension
CAD status post stents
Carotid artery disease
paroxysmal atrial fibrillation
Watchman procedure
CHF
PAD failed attempt left lower extremity angioplasty
Class III obesity BMI 46.5
SAMIA
Pulmonary HTN
Chronic lymphedema
Asthma
Left groin mass
Insomnia
Rosacea
Nephrolithiasis
Cholecystectomy
Bladder repair
Chronic bilateral heel wounds
Left heel osteomyelitis I+D 01/2024 s/p 6wks meropenem and linezolid
Left shoulder replacement
Chief Complaint
-: Cellulitis
Subjective / Review of Systems
No new complaints.
Vital Signs / Physical Exam
Vital Signs
Vital Signs
Temp Pulse Resp BP Pulse Ox
98.0 F 113 23 116/68 94
06/21/24 07:19 06/21/24 05:00 06/21/24 05:00 06/21/24 05:00 06/21/24 05:00
Physical Exam
Constitutional: No Acute Distress and Comfortable
Pulmonary: Clear
Gastrointestinal: Soft, Non Tender and Non Distended
Extremities: Edema (LLE decreasing) and Erythema (LLE decreasing, decreased warmth)
Neurological: AO x 3
Objective Data
Lab Data
Lab Results
06/21/24 05:09
06/21/24 05:09
Estimated Creat Clear 69 ml/min 06/21/24 05:09
Lactic Acid 1.5 mmol/L (0.7-2.0) 06/18/24 02:47
Total Bilirubin 0.4 mg/dl (0.2-1.3) 06/21/24 05:09
AST 12 U/L (14-36) L 06/21/24 05:09
ALT < 10 U/L (0-35) 06/21/24 05:09
Alkaline Phosphatase 89 U/L (38-126) 06/21/24 05:09
Most recent labs reviewed.
Micro Results:
06/17/24 21:56 Blood Culture - Preliminary
Blood/Venous No Growth in 72 hours- Final report to follow
06/17/24 21:34 Blood Culture - Preliminary
Blood/Venous No Growth in 72 hours- Final report to follow
06/19/24 16:29 Urine Culture - Final
Urine NO GROWTH
06/18/24 02:38 MRSA Screen - Final
Nose No Methicillin Resistant Staphylococcus aureus isolated.
06/17/24 17:42 Influenza Types A & B (SOFIA) - Final
Nasal Swab Negative for Influenza A & B, NAAT
Negative results must be combined with clinical observations
and patient history.
Nucleic Acid Amplification test (NAAT)performed on the
[employer] platform.
06/17/24 Periph Vascular US: No evidence of DVT of the left lower extremity. Nonvisualization of the calf veins
06/17/24 CXR: Extremely low lung volumes with crowding of the central/vascular markings. No focal parenchymal opacification to suggest pneumonia.
Care Review
Plan reviewed with: Physician Cortes)
[2024-06-21] MEDS: PROTONIX 40 MG PO (09:42)
[2024-06-21] MEDS: SINGULAIR 10 MG PO (09:42)
[2024-06-21] MEDS: NOVOLOG FLEXPEN-LOW RESISTANCE SC (09:42)
[2024-06-21] MEDS: NEURONTIN 300 MG PO (09:42)
[2024-06-21] MEDS: CALAN EXTENDED RELEASE 240 MG PO (09:42)
[2024-06-21] MEDS: ASPIR LOW (ENTERIC COATED) 81 MG PO (09:43)
[2024-06-21] MEDS: TOPROL XL 25 MG PO (09:43)
[2024-06-21] MEDS: SANTYL OINTMENT 1 APPLIC TOPICAL (09:43)
[2024-06-21] MEDS: LAC HYDRIN, AM LACTIN LOTION 1 APPLIC TOPICAL (09:45)
[2024-06-21] MEDS: DESENEX/MITRAZOL/ZEASORB 1 APPLIC TOPICAL (09:45)
[2024-06-21 12:50] LABS: Glucose - Point of Care 179 mg/dl (70-99)
--- NOTE | 2024-06-21 12:55 | CM ---
Addendum entered by Analia Guzman 06/21/24 16:28:
Plan: Discharge to son's home this evening with [facility] and [facility] for home oxygen
[facility] notified via [employer]; left voice mail for José Manuel @ [phone]

Addendum entered by Analia Guzman 06/21/24 16:07:
Ambulance pick and shovel man to son's home scheduled for 1929; Son notified
Original Note:
CM spoke with Son via phone to discuss Discharge Planning
Explained that PT/OT ordered to evaluation patient today. If SNF is recommended, Son reported that DC Plan preference is Home with Home Health services from [facility]
Per Attending, Home Oxygen Assessment ordered; CM discussed with son; no Oxygen vendor preference identified
Plan: Discharge to home when medically stable with Home Health services as ordered; and Home Oxygen
[2024-06-21] MEDS: NOVOLOG FLEXPEN-LOW RESISTANCE 1 UNITS SC ×2 (13:00→18:07)
--- NOTE | 2024-06-21 13:30 | W.PN.HOSP.TC ---
Addendum entered and electronically signed by Sixto Bansal MD 06/22/24 15:50:
[id number]
Addendum entered and electronically signed by Sixto Bansal MD 06/21/24 16:23:
Family does not want to go to skilled rehab, understanding risks
Addendum entered and electronically signed by Sixto Bansal MD 06/21/24 15:27:
Patient is in need of oxygen at 2 liters/minute via nasal cannula continuously due to pulse oximetry of 87% on room air at rest. Oxygen will help to improve hypoxemia. DuoNeb therapy has been tried and is ineffective in treating hypoxemia related
symptoms. Oxygen is needed to improve symptoms. *
Addendum entered and electronically signed by Sixto Bansal MD 06/21/24 13:41:
Patient is in need of oxygen at 2 liters/minute via nasal cannula continuously due to pulse oximetry of 88% on room air at rest. Oxygen will help to improve hypoxemia. DuoNeb therapy has been tried and is ineffective in treating hypoxemia related
symptoms. Oxygen is needed to improve symptoms.
Original Note:
Today's Communication/Plan
-
Tubigrip's
Transition daptomycin 500mg iv q24 (d4) to Linezolid 600mg po bid through 06/26/24
Hold sertraline while on Linezolid.
Avoid tyramine-rich foods while on Linezolid.
Resume lasix, hold aldactone and f/u
Assessment / Plan
Assessment / Plan
Constitutional: No Acute Distress and Obese
Eyes: No Conjunctival Hemorrhage and Sclera Anicteric
Cardiovascular: Regular Rate and S1/S2
Pulmonary: Clear
Gastrointestinal: Soft, Non Tender, Non Distended and Normal Bowel Sounds
Genito-Urinary: Negative Fitzpatrick or CVA Tenderness
Extremities: Edema (Lynphedema BLE. LLE 4+ edema) and Erythema (LLE erythema from ankle up to groin, + warmth, very dry skin left foot)
Wound: Other (left heel shallow wounds clean, dry, tissue very close to bone but no visible bone. )
Neurological: AO x 3
#Acute lower left extremity cellulitis
#Sepsis due to cellulitis
-Follow blood cultures ngtd
� Transition daptomycin 500mg iv q24 (d4) to Linezolid 600mg po bid through 06/26/24
- Hold sertraline while on Linezolid.
- Avoid tyramine-rich foods while on Linezolid.
� Follow-up temps and white count
#Lymphedema�noncompliant with compression
� Compression therapy
� Moisturize dry skin
-tubigrips
-Pt cannot drive which limits her ability to go to lymphedema clinic.
# DM with neuropathy
#Hyponatremia
� Monitor
# Multiple abx allergies including anaphylaxis to PCN
#chronic dysuria
-trial estradiol ointment
-f/u urology outpt
#Hypoxia
-worsens with sleeping, suspect SAMIA/OHS along with COPD; hypoxia I suspect has been longstanding
-no bronchospasm on auscultation
-will need o2 eval - dc on home o2 with weaning outpt
-patient requiring 1-2L o2
-continue supplemental oxygen to keep sat >92
-wean as tolerated
-no acute findings on lung imaging
-flu and COVID negative
-SAMIA/Pulm eval outpt
#anemia of chronic disease
-hgb stable at 11.8
-no active bleeding
-ctm
#Chronic HFpEF
# Pulmonary Hypertension
# Valvular Heart Disease
-resume lasix; hold aldactone - can restart outpt
- Echo done last in November with normal LVEF, mitral / tricuspid regurg.
#Paroxysmal atrial fibrillation -on digoxin/metoprolol
#COPD
-nebs from home continued
-Singulair continued
-o2 as above
#IDDM
-lantus 3u at hs
-hold metformin
-sliding scale
-CHO diet
#Hypothyroidism
-levothyroxine continued
#s/p L Reverse Shoulder Arthroplasty on 12/12/23 - f/u with ortho in office
#GERD
-PPI continued
#depression
-sertraline continued
#essential htn
-verapamil continued with hold parameter
#HLD
-statin,fenofibrate continued
#Groin Masses
-f/u onc as already planned - planned for PET as per son
#Morbid Obesity due to excess calories, BMI 46.7
DVT Prophylaxis: Lovenox
Code Status: Full
More than 30 minutes spent in discharge including
Final examination of the patient
Summarizing hospital stay
Instructions for continuing care to all relevant caregivers
Preparation of discharge records, prescriptions, and referral forms
Total time spent (36 in minutes):
Anticipated Discharge: Today
Subjective/Interval History
-
Date of Service: June 21, 2024
no acute events
Objective Data
-
Labs:
Laboratory Results
06/21/24
05:09
WBC 10.0
Hgb 8.8 L
Hct 28.3 L
Plt Count 225
Sodium 134 L
Potassium 3.9
Chloride 99
Carbon Dioxide 28
BUN 42 H
Creatinine 0.9
Glucose 145 H
Calcium 8.7
Total Bilirubin 0.4
AST 12 L
ALT < 10
Alkaline Phosphatase 89
Vital Signs:
Vital Signs
Temp Pulse Resp BP Pulse Ox
98.4 F 107 20 116/68 97
06/21/24 11:27 06/21/24 09:22 06/21/24 09:22 06/21/24 05:00 06/21/24 09:22
I&O
06/20/24 06/21/24 06/22/24
06:59 06:59 06:59
Intake Total 240 / 240
Output Total 575 / 575 700 / 700 750 / 750
Balance -335 / -335 -700 / -700 -750 / -750
Review of Systems
-
History Source: Patient
All other systems: Not reviewed unless documented
Physical Exam
-
General: Negative Appears in Distress
HEENT: Oxygen
Respiratory: Clear to Auscultation
GI: Soft, Nontender and Nondistended
Skin: Warm and Dry
Neuro: Awake, Alert and Oriented
Data Reviewed
-
Ultrasound: Report Reviewed by me
Labs: Labs Reviewed by me
--- NOTE | 2024-06-21 13:39 | W.DS.TRANS ---
DC Summary - [employer]
-
Discharge Instructions:
Sleep Apnea Risk High
Discharge Diagnosis/Procedures #Acute lower left extremity cellulitis
#Sepsis due to cellulitis
#chronic dysuria
Diet Low Cholesterol,Low Fat,2 Gram Sodium,Diabetic,
Carb Controlled
Activity As tolerated
Blood Work cbc and bmp in 3-5 days with pcp
Instructions:
Stand-Alone Forms:
Changes to Home Medications: Yes
Discharge Medications:
DC Medications w/original date entered in [employer]
albuterol sulfate 90 mcg/actuation aerosol inhaler 2 puff inhalation R Q4HPRN PRN sob/wheezing 09/27/19
atorvastatin 40 mg tablet 40 mg PO HS High cholesterol 04/23/21
fenofibrate nanocrystallized 48 mg tablet 48 mg PO HS High cholesterol 07/13/21
montelukast 10 mg tablet 10 mg PO DAILY Allergies 11/30/21
pantoprazole 40 mg tablet,delayed release 40 mg PO DAILY Gastrointestinal issue 11/30/21
sertraline 50 mg tablet 50 mg PO HS Depression 11/30/21
digoxin 125 mcg (0.125 mg) tablet 125 mcg PO DAILY Heart Disease/Condition 08/22/23
fluticasone 250 mcg-salmeterol 50 mcg/dose blistr powdr for inhalation (Advair Diskus) 1 inh inhalation R DAILYPRN PRN sob/wheezing 08/22/23
levothyroxine 125 mcg tablet (Synthroid) 125 mcg PO DAILY Thyroid 08/22/23
spironolactone 25 mg tablet 25 mg PO DAILY Heart Failure 08/22/23
verapamil 240 mg 24 hr capsule,extended release 240 mg PO DAILY Blood Pressure 11/04/23
metoprolol succinate 25 mg tablet,extended release 24 hr 25 mg PO DAILY #30 tabs 11/06/23
gabapentin 300 mg capsule 300 mg PO BID sleep/pain #10 caps 12/14/23
acetaminophen 325 mg tablet (Tylenol) 650 mg PO Q6HPRN PRN mild pain/fever 06/17/24
aspirin 81 mg tablet,delayed release 81 mg PO DAILY 06/17/24
furosemide 80 mg tablet 40 mg PO NOON 06/17/24
furosemide 80 mg tablet 60 mg PO BID 06/17/24
insulin glargine 100 unit/mL subcutaneous solution (Lantus U-100 Insulin) 3 unit SC HS DM 06/17/24
metformin 500 mg tablet,extended release 24 hr 1,000 mg PO BID 06/17/24
therapeutic multivitamin 1 tab PO DAILY 06/17/24
vitamin A and D 1 applic topical DAILYPRN PRN diaper rash 06/17/24
ammonium lactate 12 % lotion 1 applic topical BID #400 grams 06/21/24
collagenase clostridium histo. 250 unit/gram topical ointment (Santyl) 1 applic topical DAILY #90 grams 06/21/24
estradiol 0.01% (0.1 mg/gram) vaginal cream 1 appful vaginal MoWeFr@2200 #42.5 grams 06/21/24
linezolid 600 mg tablet 600 mg PO BID 7 days #14 tabs 06/21/24
miconazole nitrate 2 % topical powder (Miconazorb AF) 1 applic topical BID #85 grams 06/21/24
Home Medication Changes
ammonium lactate 12 % lotion 1 applic topical BID #400 grams 06/21/24
collagenase clostridium histo. 250 unit/gram topical ointment (Santyl) 1 applic topical DAILY #90 grams 06/21/24
estradiol 0.01% (0.1 mg/gram) vaginal cream 1 appful vaginal MoWeFr@2200 #42.5 grams 06/21/24
linezolid 600 mg tablet 600 mg PO BID 7 days #14 tabs 06/21/24
miconazole nitrate 2 % topical powder (Miconazorb AF) 1 applic topical BID #85 grams 06/21/24
Pending Results: No
[2024-06-21 17:40] LABS: Glucose - Point of Care 189 mg/dl (70-99)
[2024-06-21] MEDS: LOVENOX 40 MG SC (18:06)
[2024-06-21] MEDS: LANOXIN 125 MCG PO (18:06)
--- NOTE | 2024-06-21 19:21 | PTCARENOTE ---
pt for 1930 pickup to go home by ambulance. home o2 set up by immigration case worker. discharge instructions given nd discussed with patient. midline removed by iv team.
--- NOTE | 2024-06-21 20:14 | PTCARENOTE ---
Received pt from day shift RN. Pt aaox3. afib on monitor. 94% on 1L. Right heel wound care completed. EMS arrived to pickup patient to transfer her to home. Per [employer] development officer packet given and education provided. Confirmed this with patient.
Pt left floor via stretcher by EMS with all her belongings. vital signs taken and documented.
== END 2024-06-21 20:25 | disposition home health service (06) | DRG 871 ==
LOC: IMU 21:19
PROVIDERS: Registered Nurse; ADMITTING PHYSICIAN Hospitalist; ATTENDING PHYSICIAN Internal Medicine; CONSULT PHYSICIAN Podiatrist Foot & Ankle Surgery; EMERGENCY PHYSICIAN Emergency Medicine; FAMILY PHYSICIAN Family Medicine; OTHER PHYSICIAN Internal Medicine Infectious Disease
DX: A41.9 Sepsis, unspecified organism (principal); J96.01 Acute respiratory failure with hypoxia; L89.613 Pressure ulcer of right heel, stage 3; L89.624 Pressure ulcer of left heel, stage 4; R65.21 Severe sepsis with septic shock; L03.116 Cellulitis of left lower limb; I13.0 Hypertensive heart and chronic kidney disease with heart failure and stage 1 through stage 4 chronic kidney disease, or unspecified chronic kidney disease; I50.32 Chronic diastolic (congestive) heart failure; Z68.42 Body mass index [BMI] 45.0-49.9, adult; M86.9 Osteomyelitis, unspecified; R30.0 Dysuria; I89.0 Lymphedema, not elsewhere classified; G47.33 Obstructive sleep apnea (adult) (pediatric); J44.9 Chronic obstructive pulmonary disease, unspecified; N18.30 Chronic kidney disease, stage 3 unspecified; E11.22 Type 2 diabetes mellitus with diabetic chronic kidney disease; Z87.440 Personal history of urinary (tract) infections; I25.10 Atherosclerotic heart disease of native coronary artery without angina pectoris; D63.1 Anemia in chronic kidney disease; I48.0 Paroxysmal atrial fibrillation; E03.9 Hypothyroidism, unspecified; E78.00 Pure hypercholesterolemia, unspecified; E11.40 Type 2 diabetes mellitus with diabetic neuropathy, unspecified; Z79.4 Long term (current) use of insulin; E11.621 Type 2 diabetes mellitus with foot ulcer; E11.628 Type 2 diabetes mellitus with other skin complications; Z88.0 Allergy status to penicillin; Z87.892 Personal history of anaphylaxis; D50.9 Iron deficiency anemia, unspecified; K21.9 Gastro-esophageal reflux disease without esophagitis; E11.51 Type 2 diabetes mellitus with diabetic peripheral angiopathy without gangrene; I27.21 Secondary pulmonary arterial hypertension; Z87.891 Personal history of nicotine dependence; Z88.2 Allergy status to sulfonamides; Z79.82 Long term (current) use of aspirin; Z96.612 Presence of left artificial shoulder joint; F32.A Depression, unspecified; I07.1 Rheumatic tricuspid insufficiency; Z95.5 Presence of coronary angioplasty implant and graft; E66.813 Obesity, class 3; G47.00 Insomnia, unspecified; L71.9 Rosacea, unspecified; Z90.49 Acquired absence of other specified parts of digestive tract; Z11.52 Encounter for screening for COVID-19; I45.10 Unspecified right bundle-branch block; Z91.199 Patient's noncompliance with other medical treatment and regimen due to unspecified reason
CPT/HCPCS: 71045; 71275; 80053; 81003; 81015; 82550; 82805; 82962; 83036; 83605; 85025; 85027; 87040; 87070; 87086; 87502; 87811; 93005; 93971; 94640; 96361; 96374; 96375; 97163; 97530; 99291; J0878; J2185; Q9967

== ENCOUNTER 2024-07-16 10:48 | Inpatient (IN) | payer MEDICARE, SELFPAY ==
[2024-07-10 22:17] VITALS: BP 102/59
[2024-07-10 23:00] VITALS: BP 97/69
[2024-07-10 23:06] LABS: Glucose - Point of Care 172 mg/dl (70-99)
[2024-07-10 23:08] VITALS: BMI 46.9
--- NOTE | 2024-07-10 23:19 | ED.CVA ---
History of Present Illness
General
Chief Complaint: CVA/TIA Symptoms
Source: patient
Exam Limitations: none
Time Seen by Provider: 07/10/24 22:45
Nursing documentation reviewed up to this point in time: agreed with
Onset of Stroke Symptoms
Onset of symptoms known: No
Time pt last seen normal is known: No
History of Present Illness
History of Present Illness:
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
resolved on arrival pt states.
States she has been drooling left side of mouth when eating or chewing gum past week,
She does have hx of right brain tumor removed 2 yrs ago, with residual left facial and arm weakness 'at first but then it went away.'
Past History
Past History
ED Past Medical History: Arrthythmia (Atrial fibrillation), Asthma, CAD, CHF, HTN, Hypercholesterolemia, IDDM, [place], Hypothyroidism and Other (PNA, Cellulitis, Chronic Lymph edema)
ED Past Surgical History: Cardiac (cardioversion, Stents X 2), Cholecystectomy and Other
Social History
Tobacco: Former smoker
Alcohol: Daily (Vodka 1 large glass)
Drug: None
Personal:
Living: alone
Employment: Retired
Family History
Family History: Hypertension
Review of Systems
Review of Systems
Allergies reviewed?: Yes
All Other Systems: ROS reviewed and negative except as documented in HPI and ROS
Constitutional: Denies fever, fatigue or chills
Respiratory: Denies trouble breathing
Cardiac: Denies chest pain or syncope
ABD/GI: Denies abdominal pain, nausea, vomiting or diarrhea
: Reports dysuria (chronic, referred to Urologist. ) and incontinence (wears Depends); Denies frequency or difficulty voiding
Musculoskeletal: Reports edema (lymphedema)
Skin: Reports other (L foot wound chronic, right index finger infection. Has PET scan in 2 days for 'malformations' back of legs)
Neurological: Denies dizzy, headache, weakness or numbness
Phy Exam
Physical Exam
Physical Exam:
GENERAL: No acute distress. A&Ox3. Morbidly obese
CONSTITUTIONAL: Afebrile.
EYES: clear, conjunctivae normal
ENMT: moist mucus membranes, Pharynx nl
RESPIRATORY: Regular respirations, nonlabored, lungs clear.
CARDIOVASCULAR: Irregular rhythm, normal rate, + murmur, no rubs.
GI: Soft, nontender, normal BS
MUSCULOSKELETAL: Bilateral LE lymphedema, unable to ambulate. Well perfused. Right index finger with swelling, erythema from DIP to tip, two <5 mm white spots skin of medial and lateral DIP joint
SKIN: Warm, dry, pink
PSYCH: Normal mood and affect. Well kept, interactive and appropriate
NEUROLOGIC: Awake, alert and oriented. Speech clear. Finger to nose intact, CN 2-12 intact. Very mild left mouth droop, sensation decreased left face and forearm 'it feels more intense on the right'
Scores
NIH Stroke Score
Level of Consciousness: 0 - Alert
LOC Questions: 0-Answers both correctly
LOC Commands: 0-Performs both correctly
Best Horizontal Gaze: 0-Normal
Visual [place]: 0=Normal, no visual loss
Facial Palsy: 1=Minor paralysis (minor left mouth droop)
Motor - Right Arm: 0=No drift 10 seconds
Motor - Left Arm: 0=No drift 10 seconds
Motor - Right Le-No drift 5 seconds
Motor - Left Le-No drift 5 seconds
Limb Ataxia: 0-Absent
Sensation: 1-Mild loss (sensation to touch decreased left face and forearms)
Best Language: 0-No aphasia
Dysarthria: 0-Normal
Extinction and Inattention: 0-No abnormality
Total Score:: 2
Course
Orders/Labs/Results
Orders:
Orders
07/10/24 22:14
Electrocardiogram (*1) Urgent
Reason for Study: Other
Other Reason for Exam: Possible Stroke
Bedside Glucose- Treatment ONCE
Cardiac Monitoring- Treatment ONCE
EKG- Treatment ONCE
IV Insert/Care/Rem.- Treatment PRN
Vital Signs As Directed
Frequency: Other
Weight As Directed
Frequency: Once
Comment: ZERO STRETCHER SCALE FOR ACCURATE WEIGHT
O2 Therapy [RESP] Urgent
Titrate/Wean O2 to maintain O2 sat greater than (%): 93
Special Instructions: MAINTAIN CONTINUOUS O2 SATS > OR = 93%
07/10/24 22:57
Complete Blood Count/With Diff Urgent
Comprehensive Metabolic Panel Urgent
PTT Urgent
Prothrombin Time Urgent
Troponin I Urgent
07/10/24 23:20
Finger(s)/Thumb 2 View Rt [CR Finger(s)/thumb Min 2 Vw Rt] Urgent
Comment:
Reason For Exam: infection
Indicate Which Finger:: Index Finger
07/11/24 01:00
CT Head W/o Iv Contrast Urgent
Reason For Exam: episode L facial droop, resolved
Abnormal Lab Results
07/10/24 07/10/24
22:57 23:05
RBC 3.40 L 10^6/uL
(4.20-5.40)
Hgb 8.6 L g/dL
(12.0-16.0)
Hct 27.9 L %
(37.0-47.0)
MCH 25.3 L pg
(27.0-31.0)
MCHC 30.8 L g/dL
(33.0-37.0)
RDW 16.6 H %
(11.5-14.5)
Abs Immat Gran (auto) 0.1 H 10^3/uL
(0-0.05)
Absolute Lymphs (auto) 0.9 L 10^3/uL
(1.2-3.4)
Immature Gran % 0.9 H %
(0-0.5)
Lymphocytes % 11.5 L %
(20.5-51.1)
PT 14.8 H Sec
(11.4-14.6)
Carbon Dioxide 31 H mmol/L
(22-30)
BUN 31 H mg/dl
(7-17)
Glucose 175 H mg/dl
(70-99)
POC Glucose 172 H mg/dl
(70-99)
07/10/24 22:57
07/10/24 22:57
Vital Signs
Initial and Last Documented VS:
Initial Vital Signs
Temp Pulse Resp BP Pulse Ox
97.9 F 65 20 102/59 98
07/10/24 22:17 07/10/24 22:17 07/10/24 22:17 07/10/24 22:17 07/10/24 22:17
Last Documented Vital Signs
Temp Pulse Resp BP Pulse Ox
97.9 F 69 20 97/69 97
07/10/24 22:17 07/10/24 23:30 07/10/24 23:30 07/10/24 23:00 07/10/24 23:30
MDM/Problems Addressed
Differential Diagnosis Includes:
TIA, hypoglycemia
Cellulitis/abscess right index finger, osteomyelitis finger, Gout
MDM/Problems Addressed:
73 yo female w h/o Left heel ulceration followed by her Trauma Surgeon, chronic LE lymphedema, ASCVD, HTN, DM-II, chronic recurrent cystitis, Morbid obesity, PAF, Watchman procedure, Hypothyroid, Chronic HFpEF, presents for episode of left side mouth
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
States she has been drooling left side of mouth when eating or chewing gum past week,
She does have hx of right brain tumor removed 2 yrs ago, with residual left facial and arm weakness 'at first but then it went away.'
NIH score: 2
EKG: Afib RBBB
Glucose 172
11:57 PM:
CBC with no clinically significant abnormality. Her baseline hemoglobin of 8.6
CMP: BUN 31, her baseline otherwise unremarkable
right index finger x-ray reviewed with Dr. Nieto, agrees consistent with gout
Plan: Admit: TIA, gouty arthritis versus cellulitis right index finger
Hospitalist notified of admission
Chronic conditions affecting care: DM, HTN and Arrhythmia
*EKG
EKG Intrepretation Date: 07/10/24
Interpretation: abnormal
Comparison EKG: no changes
Heart Rate: 68
Rate: normal
Rhythm: a-fib
Cadott: indeterminate
QRS Pattern: right bundle branch block
Ischemia: no ischemia
*Critical Care Note
Total Time (30-74mins, 75-104mins- exclusive of procedures): Not Applicable
ED Attending Note
-
Portions of this chart may have been created with voice recognition software.� Occasional wrong word or��sound alike� substitutions may have occurred due to the inherent limitations of voice recognition software.
Discharge Plan
Departure
Patient Disposition: Admit
Date of Disposition: 07/11/24
Time of Disposition: 00:01
Admit to: Med/Surg
Presentation/result/management discussed w/ accepting MD/DO: Hospitalist
Condition: Fair
Discharge Problem:
TIA (transient ischemic attack), Cellulitis of right index finger
Prescriptions:
No Action
albuterol sulfate 1 PUFF HFA aerosol inhaler
2 puff inhalation R Q4HPRN PRN (Reason: sob/wheezing)
atorvastatin 40 MG tablet
40 mg PO HS
fenofibrate nanocrystallized 48 MG tablet
48 mg PO HS
pantoprazole 40 MG tablet,delayed release (DR/EC)
40 mg PO DAILY
sertraline 50 MG tablet
50 mg PO HS
montelukast 10 MG tablet
10 mg PO DAILY
fluticasone propion-salmeterol [Advair Diskus] 250-50 mcg/dose Blister With Device
1 inh INHALATION R DAILYPRN PRN (Reason: sob/wheezing)
spironolactone 25 mg Tablet
25 mg PO DAILY
levothyroxine [Synthroid] 125 mcg Tablet
125 mcg PO DAILY
digoxin 125 mcg (0.125 mg) Tablet
125 mcg PO DAILY
gabapentin 300 mg capsule
300 mg PO BID Qty: 10 0RF
verapamil 240 mg capsule,ext rel. pellets 24 hr
240 mg PO DAILY
metoprolol succinate 25 mg Tablet Extended Release 24 Hr
25 mg PO DAILY Qty: 30 0RF
acetaminophen [Tylenol] 325 mg Tablet
650 mg PO Q6HPRN PRN (Reason: mild pain/fever)
therapeutic multivitamin Tablet
1 tab PO DAILY
furosemide 80 mg Tablet
60 mg PO BID
furosemide 80 mg Tablet
40 mg PO NOON
vitamin A and D Cream
1 applic TOPICAL DAILYPRN PRN (Reason: diaper rash)
metformin 500 mg Tablet Extended Release 24 Hr
1,000 mg PO BID
insulin glargine [Lantus U-100 Insulin] 100 unit/mL solution
3 unit SC HS
aspirin 81 mg tablet,delayed release (DR/EC)
81 mg PO DAILY
linezolid 600 mg Tablet
600 mg PO BID 7 Days Qty: 14 0RF
estradiol 0.01 % (0.1 mg/gram) Cream
1 appful vaginal MoWeFr@2200 Qty: 42.5 0RF
ammonium lactate 12 % Lotion
1 applic topical BID Qty: 400 0RF
Santyl 250 unit/gram Ointment
1 applic topical DAILY Qty: 90 0RF
miconazole nitrate [Miconazorb AF] 2 % Powder
1 applic topical BID Qty: 85 0RF
Referrals:
Betsy Heard NP [Family Provider] -
Interventions
Interventions:
*Risk Screen - Suicide Last Done: 07/10/24 22:12
*General Assessment Last Done: 07/10/24 22:12
*Neglect/Abuse Screening Last Done: 07/10/24 22:12
ED- Fall Risk Assessment Last Done: 07/10/24 23:08
*ED COVID-19 Vaccine History Last Done: 07/10/24 23:08
ED- Pulmonary Assessment Last Done: 07/10/24 23:08
ED- Neurological Assessment Last Done: 07/10/24 23:29
ED- Cardiac Assessment Last Done: 07/10/24 23:08
Discharge Date and Time
Print Language: SWEDISH
[2024-07-10 23:20] LABS: APTT 26.7 Sec (23.4-35.0); PT 14.8 Sec (11.4-14.6)
[2024-07-10 23:35] LABS: % Basophils 0.9 % (0-2); % Eosinophils 4.4 % (0-6); % Immature Granulocytes 0.9 % (0-0.5); % Lymphocytes 11.5 % (20.5-51.1); % Monocytes 7.4 % (1.7-9.3); % Neutrophils 74.9 % (42.2-75.2); Absolute Basophils 0.1 10^3/uL (0-0.2); Absolute Eosinophils 0.3 10^3/uL (0-0.7); Absolute Immature Granulocytes 0.1 10^3/uL (0-0.05); Absolute Lymphocytes 0.9 10^3/uL (1.2-3.4); Absolute Monocytes 0.6 10^3/uL (0.1-0.6); Absolute Neutrophils 5.6 10^3/uL (1.4-6.5); Hematocrit 27.9 % (37.0-47.0); Hemoglobin 8.6 g/dL (12.0-16.0); Mean Corp Hgb Conc. 30.8 g/dL (33.0-37.0); Mean Corpuscular Hgb 25.3 pg (27.0-31.0); Mean Corpuscular Volume 82.1 fL (81.0-99.0); Mean Platelet Volume 9.6 fL (7.4-10.4); Nucleated Red Blood Cells % 0 %; Platelet Count 230 10^3/uL (130-400); Red Cell Dist. Width 16.6 % (11.5-14.5); White Blood Cell Count 7.5 10^3/uL (4.8-10.8)
[2024-07-10 23:39] LABS: Troponin I < 0.012 ng/ml
[2024-07-10 23:45] LABS: ALT (SGPT) < 10 U/L (0-35); AST (SGOT) 16 U/L (14-36); Albumin 3.6 g/dl (3.5-5.0); Alkaline Phosphatase 87 U/L (38-126); Blood Urea Nitrogen 31 mg/dl (7-17); Calcium 9.9 mg/dl (8.4-10.2); Carbon Dioxide 31 mmol/L (22-30); Chloride 101 mmol/L (98-107); Estimated Creatinine Clearance 61 ml/min; Glucose 175 mg/dl (70-99); Sodium 139 mmol/L (135-145); Total Bilirubin 0.8 mg/dl (0.2-1.3); Total Protein 6.8 g/dl (6.3-8.2); eGFR 58.75
[2024-07-11] VITALS (10 sets, daily range): BP systolic 105–139; BP diastolic 53–69; BMI 45.6
--- NOTE | 2024-07-11 01:03 | HPS.HSE ---
Family Physician
-
Family Physician: Betsy Heard
Chief Complaint
-
Speech difficulty
History of Present Illness
This is a 73-year-old with extensive past medical history to include atrial fibrillation status post watchman, congestive heart failure, chronic lymphedema, asthma/COPD, currently [id number]-[id number] diabetes, coronary artery disease status post
GA and cardiac stents, pulmonary artery hypertension, prior history of seizures, recent admission for cellulitis treated with linezolid and found to be hypoxic on that admission placed on home oxygen of around 3 L presented to the emergency
department today with facial droop and speech difficulty that lasted about 20 minutes.
Patient stated that she was having trouble with food, not the left side of her mouth. Had dry and low noticed that she had drooping of left facial eyelid as well as drooping of left face and mouth. She did not have trouble with her words. This
facial droop and word slurring lasted for about 10 to 15 minutes. Does resolve completely. She was transferred to the emergency department for further evaluation. Patient denied any other focal neurological deficits.
She has a myriad of complaints to include a wound in the left lower extremity that appears to have more drainage that is purulent and foul-smelling. She has a history of osteomyelitis to that left ankle status post 10 weeks of IV antibiotics and
was again admitted with cellulitis in June when she was treated with linezolid. She denies having any fevers or chills. She denies having any pain. She reports she has ongoing swelling in her feet and legs which are unchanged from prior.
Patient also showed notable painful lesions in the right index finger. She has had that for several days now. She reports its tender to palpation but no pain at rest. She denies any recent injuries or swelling.
In the emergency department was found to be requiring 5 L of oxygen. She denies feeling short of breath or having any chest pain or dyspnea on exertion.
Blood pressure was 97/70 with a pulse of 69, temperature was 97.5. Respiratory rate was 20. ECG showed atrial fibrillation at rate of 68 with right bundle. Troponin was negative. CBC shows a hemoglobin 8.6 which is similar to prior 8.8. There
was no leukocytosis and platelets were normal. Electrolytes are BUN and creatinine were essentially normal and unchanged from prior. The CT of the head shows no acute interval changes. Finger x-ray was negative for any foreign body.
Medical History
Past Medical History
Past Medical History: Reports Arrhythmia (Paroxysmal atrial fibrillation status post Watchman procedure), CAD (CAD status post GA, PCI x 2), CHF (Congestive heart failure), Hypercholesterolemia, NIDDM and Other (Chronic lymphedema)
Additional Past Medical History:
History of left lower extremity osteomyelitis
Pulmonary hypertension
Past Surgical History: Reports Brain (Craniotomy for meningioma), Urological (Gallbladder reconstruction) and Other (Angioplasty to left vein of leg)
Additional Past Surgical History:
Surgical debridement of left heel
Social History
Tobacco: Non-smoker
Alcohol: None
Drug: None
Personal: Single
Living: With Family
Employment: Retired
Family History
Family History: Not pertinent
Allergies / Home Medications
Allergies reflects when Allergies were last updated in [facility].
Home Medications with original date entered in [facility]
Allergy/Medication List:
Allergies
Allergy/AdvReac Type Severity Reaction Status Date / Time
cat dander Allergy ASTHMA/SOB Verified 07/10/24 22:16
levofloxacin Allergy Hives Verified 07/10/24 22:16
[From Levaquin Leva-Carlos]
Penicillins Allergy Shortness Verified 07/10/24 22:16
of Breath
piperacillin Allergy Anaphylaxis, Verified 07/10/24 22:16
acute
hypoxemic
resp f,
hypotensitching
01/25/24
Sulfa (Sulfonamide Allergy Hives Verified 07/10/24 22:16
Antibiotics)
vancomycin [Vancomycin] Allergy Rash/red Verified 07/10/24 22:16
tino
syndrome
Home Medications
albuterol sulfate 90 mcg/actuation aerosol inhaler 2 puff inhalation R Q4HPRN PRN sob/wheezing 09/27/19
atorvastatin 40 mg tablet 40 mg PO HS High cholesterol 04/23/21
fenofibrate nanocrystallized 48 mg tablet 48 mg PO HS High cholesterol 07/13/21
montelukast 10 mg tablet 10 mg PO DAILY Allergies 11/30/21
pantoprazole 40 mg tablet,delayed release 40 mg PO DAILY Gastrointestinal issue 11/30/21
sertraline 50 mg tablet 50 mg PO HS Depression 11/30/21
digoxin 125 mcg (0.125 mg) tablet 125 mcg PO DAILY Heart Disease/Condition 08/22/23
fluticasone 250 mcg-salmeterol 50 mcg/dose blistr powdr for inhalation (Advair Diskus) 1 inh inhalation R DAILYPRN PRN sob/wheezing 08/22/23
levothyroxine 125 mcg tablet (Synthroid) 125 mcg PO DAILY Thyroid 08/22/23
spironolactone 25 mg tablet 25 mg PO DAILY Heart Failure 08/22/23
verapamil 240 mg 24 hr capsule,extended release 240 mg PO DAILY Blood Pressure 11/04/23
metoprolol succinate 25 mg tablet,extended release 24 hr 25 mg PO DAILY #30 tabs 11/06/23
gabapentin 300 mg capsule 300 mg PO BID sleep/pain #10 caps 12/14/23
acetaminophen 325 mg tablet (Tylenol) 650 mg PO Q6HPRN PRN mild pain/fever 06/17/24
aspirin 81 mg tablet,delayed release 81 mg PO DAILY 06/17/24
furosemide 80 mg tablet 40 mg PO NOON 06/17/24
furosemide 80 mg tablet 60 mg PO BID 06/17/24
insulin glargine 100 unit/mL subcutaneous solution (Lantus U-100 Insulin) 3 unit SC HS DM 06/17/24
metformin 500 mg tablet,extended release 24 hr 1,000 mg PO BID 06/17/24
therapeutic multivitamin 1 tab PO DAILY 06/17/24
vitamin A and D 1 applic topical DAILYPRN PRN diaper rash 06/17/24
ammonium lactate 12 % lotion 1 applic topical BID #400 grams 06/21/24
collagenase clostridium histo. 250 unit/gram topical ointment (Santyl) 1 applic topical DAILY #90 grams 06/21/24
estradiol 0.01% (0.1 mg/gram) vaginal cream 1 appful vaginal MoWeFr@2200 #42.5 grams 06/21/24
linezolid 600 mg tablet 600 mg PO BID 7 days #14 tabs 06/21/24
miconazole nitrate 2 % topical powder (Miconazorb AF) 1 applic topical BID #85 grams 06/21/24
Review of Systems
-
History Source: Patient
Constitutional: Reports No Symptoms
EENT: Reports No Symptoms
Respiratory: Reports No Symptoms
Cardiac: Reports No Symptoms
Abdomen/GI: Reports No Symptoms
: Reports No Symptoms
Musculoskeletal: Reports Edema
Skin: Reports Other (left heel wound, right index finger painful nodules)
Neurological: Reports Other (slurred speech)
Endocrine: Reports No Symptoms
Hematologic/Lymphatic: Reports No Symptoms
Psych: Reports No Symptoms
Physical Exam
Vital Signs
Vital Signs
Temp Pulse Resp BP Pulse Ox
97.9 F 74 23 117/69 96
07/10/24 22:17 07/11/24 00:45 07/11/24 00:45 07/11/24 00:31 07/11/24 00:45
Physical Exam
General: No Apparent Distress, Comfortable and Conversant
HEENT: NormoCephalic, Anicteric, Moist mucous membranes and Atraumatic
Respiratory: Clear (anteriorly) and Non Labored Respirations
Cardiac: S1/S2 and Regular Rhythm
Breast: Deferred by me
GI: Soft, Non Tender, Non Distended and Normal Bowel Sounds
Rectal: Deferred by Provider
Genito-urinary: Deferred by me
Musculoskeletal: No Clubbing, No Cyanosis, Edema, Left Lower Extremity (2+ nonpitting edema) and Edema, Right Lower Extremity (2+ nonpitting edema)
Skin: Warm and Lesions (R index finger distal phallange multiple painful nodules)
Neuro: AO x 3 and Nonfocal/grossly intact
Hematologic/Lymphatic: No Lymphadenopathy
Psych: Calm
Laboratory Results
-
07/10/24 22:57
07/10/24:57
Laboratory Results
PT 14.8 Sec (11.4-14.6) H 07/10/24 22:57
INR 1.10 07/10/24 22:57
APTT 26.7 Sec (23.4-35.0) 07/10/24:57
Total Bilirubin 0.8 mg/dl (0.2-1.3) 07/10/24:57
AST 16 U/L (14-36) 07/10/24:57
ALT < 10 U/L (0-35) 07/10/24:57
Alkaline Phosphatase 87 U/L (38-126) 07/10/24 22:57
Troponin I < 0.012 ng/ml 07/10/24 22:57
Data Reviewed
-
Diagnostic Radiology: Image Personally Visualized and interpreted
CT Scan: Report Reviewed by me
Medical Tests (Nuc Med, Echo, EKG etc): Image Personally Visualized and interpreted
Lab Data: Labs Reviewed by me
Old Records: Reviewed
Impression/Plan
-
IMPRESSION:
73 female with h/o AFIB s/p watchman, CHF, CAD s/p GA, pulmonary arterial hypertension, diabetes, recurrent left lower extremity infection presenting with transient episode of slurred speech, left facial droop and left eyelid droop. She has normal
CT of the head. ECG shows a regular rhythm at 68, labs are stable with chronic anemia. She has left heel stage 4 pressure ulcer. She is hypoxic slightly worsened from baseline without symptoms of SOB. No evidence of new volume overload as she
hs chronic lymphedema.
PLAN:
TIA/CVA - 10 - 20 minutes of slurred speech and facial droop now resolved. No prior CVA. s/p watchman fo afib. On aspirin/statin
- admit to telemetry
- continue aspirin/statin for now
- check mri in am
- fasting lipd panel
- no AC due to watchman
Hypoxia - Combined restrictive/obstructive lung disease, morbid obesity, CHF. No signs of acute pulmonary infection or COPD exacerbation. Volume status at baseline
- keep on 5 L NC
- has appointment with pulmonary next week
- continue home montelukast, ics/laba, albuterol and diuretics
- check vbg in am
Wound - Chronic pressure ulcer in left heel. More drainage at this time
- wound care consult
- may need repeat debridement
Right finger nodules - tophi? versus abscess. There is some erythema and edema concerning for infection
- hold abx
- ID consult
AFIB
- continue digoxin
- metoprolol
CHF
- continue lasix 60 bid, 40 noon
- fluid restriction and daily weight
- continue spironolactone, verapamil
DVT PPX lovenox sq
Code Status - Full Code
[2024-07-11 04:14] LABS: Glucose - Point of Care 169 mg/dl (70-99)
[2024-07-11] MEDS: SYNTHROID 125 MCG PO (06:27)
[2024-07-11 07:41] LABS: Glucose - Point of Care 157 mg/dl (70-99)
[2024-07-11 07:45] LABS: Venous Blood Gas B.E. 8.7 mmol/L (-4 to +4); Venous Blood Gas HCO3 34.4 mmol/L (22-27); Venous Blood Gas O2 Sat % 99.1 %; Venous Blood Gas pCO2 53 mmHg (35-48); Venous Blood Gas pH 7.42 (7.32-7.43); Venous Blood Gas pO2 142 mmHg (30-50)
[2024-07-11 07:48] LABS: Hematocrit 28.8 % (37.0-47.0); Hemoglobin 8.7 g/dL (12.0-16.0); Mean Corp Hgb Conc. 30.2 g/dL (33.0-37.0); Mean Corpuscular Hgb 25.2 pg (27.0-31.0); Mean Corpuscular Volume 83.5 fL (81.0-99.0); Mean Platelet Volume 9.6 fL (7.4-10.4); Platelet Count 220 10^3/uL (130-400); Red Blood Cell Count 3.45 10^6/uL (4.20-5.40); Red Cell Dist. Width 16.5 % (11.5-14.5); White Blood Cell Count 6.2 10^3/uL (4.8-10.8)
[2024-07-11 08:18] LABS: Blood Urea Nitrogen 30 mg/dl (7-17); Calcium 8.9 mg/dl (8.4-10.2); Carbon Dioxide 35 mmol/L (22-30); Chloride 102 mmol/L (98-107); Estimated Creatinine Clearance 67 ml/min; Glucose 135 mg/dl (70-99); HDL Cholesterol 32 mg/dl; LDL Cholesterol, Calculated 40 mg/dl; Magnesium 1.9 mg/dl (1.6-2.3); Potassium 3.9 mmol/L (3.5-5.1); Sodium 140 mmol/L (135-145); Total Cholesterol 98 mg/dl (50-199); Triglyceride 134 mg/dl (10-149); Very Low Density Lipoprotein 26 mg/dl (0-30); eGFR > 60.00
[2024-07-11 08:41] LABS: VerifyNow Aspirin 439 ARU
[2024-07-11] MEDS: SINGULAIR 10 MG PO (09:02)
[2024-07-11] MEDS: NEURONTIN 300 MG PO (09:02)
[2024-07-11] MEDS: GLUCOPHAGE XR EXTENDED RELEASE 1000 MG PO ×2 (09:02→21:13)
[2024-07-11] MEDS: LASIX 60 MG PO ×2 (09:02→20:45)
[2024-07-11] MEDS: TOPROL XL 25 MG PO (09:02)
[2024-07-11] MEDS: ALDACTONE 25 MG PO (09:02)
[2024-07-11] MEDS: ASPIR LOW (ENTERIC COATED) 81 MG PO (09:02)
[2024-07-11] MEDS: LANOXIN 125 MCG PO (09:03)
[2024-07-11] MEDS: CALAN EXTENDED RELEASE 240 MG PO (09:03)
[2024-07-11] MEDS: PROTONIX 40 MG PO (09:03)
[2024-07-11] MEDS: SANTYL OINTMENT 1 APPLIC TOPICAL (09:04)
[2024-07-11] MEDS: LAC HYDRIN, AM LACTIN LOTION 1 APPLIC TOPICAL ×2 (09:08→20:46)
--- NOTE | 2024-07-11 09:15 | CON.NEURO ---
Neuro Assessment/Plan
Assessment
Abrupt onset slurred speech and facial droop, spontaneously resolving in a patient with prior history of meningioma resection 2022 from the right frontal lobe and significant vasculopathy in part due to type 2 diabetes.
After review of medical records, the patient was not found to be a candidate for anticoagulation based on prior therapies reducing risk and need for same.
Plan
Check MRI of brain preferably with and without contrast due to the patient's prior history of craniotomy and meningioma
Check EEG to determine if the patient had focal onset generalizing seizure
Check blood work potential metabolic causes
Would add clopidogrel to the patient's usual aspirin due to the patient's high risk for vascular causes of stroke, 21 days then discontinue
Provide medical educational materials
Goal of normotension
Goal of normoglycemia
Replace gabapentin with alternative medication to reduce the patient's risk of obesity secondary to medication exposure, change to Pregabalin 50 mg at bedtime
Patient is also be considered for replacement of sertraline with an alternative SSRI not associated with weight gain
Will follow pending results.
Consultation
Order
Date of Consultation: 07/11/24
Requesting Provider: Hospitalists
Reason for Consult: Aphasia
Subjective/Objective
Subjective Data
Date of Service: July 11, 2024
Right-handed
Patient presented to this hospital's emergency department due to acute onset left-sided facial droop with eyebrow drooping and aphasia lasting approximately 10 minutes prior to total resolution. Aphasia included slurred words and greater than normal
word-searching. No other associated symptoms. May have resolved after 10 minutes. The patient resolved was not aware of these problems and was brought to the emergency department based on her family's concerns. No similar prior episodes.
The patient did note to the emergency department provider that she has been having difficulty controlling saliva from the left side of her mouth in 6 months.
Sometimes grasping for words routinely with greater difficulty in the past has been taking place, according to the patient.
Objective Data
Vital Signs
Temp Pulse Resp BP Pulse Ox
36.3 C 84 18 118/54 95
07/11/24 07:48 07/11/24 09:03 07/11/24 07:48 07/11/24 09:02 07/11/24 07:48
Lab Results
07/11/24 07:27
07/11/24 07:27
PT 14.8 Sec (11.4-14.6) H 07/10/24 22:57
INR 1.10 07/10/24:57
APTT 26.7 Sec (23.4-35.0) 07/10/24 22:57
Sodium 140 mmol/L (135-145) 07/11/24 07:27
Potassium 3.9 mmol/L (3.5-5.1) 07/11/24 07:27
BUN 30 mg/dl (7-17) H 07/11/24 07:27
Glucose 135 mg/dl (70-99) H 07/11/24 07:27
Calcium 8.9 mg/dl (8.4-10.2) 07/11/24 07:27
LDL Cholesterol, Calc 40 mg/dl 07/11/24 07:27
Patient Allergies
cat dander Allergy (Verified 07/10/24 22:16)
ASTHMA/SOB
levofloxacin [From Levaquin Leva-Carlos] Allergy (Verified 07/10/24 22:16)
Hives
Penicillins Allergy (Verified 07/10/24 22:16)
Shortness of Breath
piperacillin Allergy (Verified 07/10/24 22:16)
Anaphylaxis, acute hypoxemic resp f, hypotensitching 01/25/24
Sulfa (Sulfonamide Antibiotics) Allergy (Verified 07/10/24 22:16)
Hives
vancomycin [Vancomycin] Allergy (Verified 07/10/24 22:16)
Rash/red tino syndrome
CVA Assessment
Onset of Stroke Symptoms
Onset of symptoms known: Yes
Date of onset of symptoms: 07/10/24
Time of onset of symptoms: 18:00
Time pt last seen normal is known: Yes
Date last time pt seen normal: 07/10/24
Time last time pt seen normal: 18:00
NIH Stroke Score
Level of Consciousness: 0 - Alert
LOC Questions: 0-Answers both correctly
LOC Commands: 0-Performs both correctly
Best Horizontal Gaze: 0-Normal
Visual [place]: 0=Normal, no visual loss
Facial Palsy: 0=Normal, symmetrical
Motor - Right Arm: 0=No drift 10 seconds
Motor - Left Arm: 0=No drift 10 seconds
Motor - Right Le-Partial vs. gravity
Motor - Left Le-Partial vs. gravity
Limb Ataxia: 0-Absent
Sensation: 1-Mild loss
Best Language: 0-No aphasia
Dysarthria: 0-Normal
Extinction and Inattention: 0-No abnormality
Total Score:: 5
Tenecteplase Contraindications
Inclusion and Exclusion criteria reviewed: Yes
Review of Systems
-
History Source: Patient
All other systems: Reviewed and negative
EENT: Negative Blurry Vision, Decreased Vision or Swallowing Difficulty
Respiratory: Cough; Negative Trouble Breathing
Cardiac: Negative Chest Pain
Abdomen/GI: Negative Incontinence of Stool
Genitourinary: Negative Incontinence
Musculoskeletal: Negative Back Pain or Neck Pain
Neuro: Dizzy (with rolling to the left-side x 1 month); Negative Headache
Physical Exam
-
General: No Apparent Distress, Appears Stated Age and Wearing Oxygen
Eyes: Round OU, [place] Conjunctivae and No Ptosis; Negative Able to visualize OU
HEENT: Anicteric and Moist Mucous Membranes
Neck: Full Range of Motion
Respiratory: No Dyspnea
Cardiac: No JVD
GI: Non-distended
Skin: Other (numerous cicatrices)
Extremities: No Clubbing and No Cyanosis
Psych: Intact Judgement/Insight
Extended Neurological Exam
Mood & Affect: Mood Unremarkable and Affect Unremarkable
Attention Span & Concentration: Awake, Alert, Interactive and No Difficulty with 2 Step Request
Memory: Unremarkable
Tremor: Hand Tremor Absent and Head Tremor Absent
Speech: Quality Unremarkable and Quantity Unremarkable
Cranial Nerve II: Left Eye: Pupillary Reactivity Unremarkable, Pupillary Size Unremarkable and Visual [place] Intact
Cranial Nerve II: Right Eye: Pupillary Reactivity Unremarkable, Pupillary Size Unremarkable and Visual [place] Intact
Cranial Nerves III, IV, : Extraocular Movement: Extraocular Movement Full in all Directions and Slow Saccades
Cranial Nerve VII: Facial Symmetry: Normal Facial Symmetry
Cranial Nerve VIII: Hearing: Unremarkable Hearing to Normal Conversational Volume
Cranial Nerves IX, X: Palate Movement: Palate Elevation Symmetric
Cranial Nerve XI: Shoulder Shrug: Unremarkable
Cranial Nerve XII: Tongue Protusion: Midline
Muscle Strength, Overall: Reduced (Unable to lift left lower extremity off of bed, lifts right lower extremity off of bed for approximately 1 second) and Full in Upper Extremities
Muscle Bulk & Tone: Bulk Unremarkable and Tone Unremarkable
Pronator Drift: No Drift in Upper Extremities and Unable to Assess (Bilateral lower extremities)
Deep Tendon Reflexes: Absent Throughout
Touch Sensation: Other (Significantly reduced in bilateral lower extremities to touch)
Coordination: [id number]-[id number] Testing Unremarkable
Babinski Sign: Absent Bilaterally
Gait & Station: Unable to Assess
Data Reviewed
-
CT Head: Report Reviewed
MRI Head: Report Reviewed and Image Reviewed
EEG: Ordered
Labs: Ordered and Report Reviewed
Reviewed with: Physician and Patient
Old Records: Summarized
Medications
-
Active Medications
Generic Name Dose Route Start Last Admin
Trade Name Freq PRN Reason Stop Dose Admin
Acetaminophen 650 mg 07/11/24 03:36
Acetaminophen 650 Mg Rectal Suppository RECTAL 08/08/24 03:35
Q4HPRN PRN
TOUSSAINT, mild pain, or temp >100.4F
Acetaminophen 650 mg 07/11/24 03:36
Acetaminophen 325 Mg Tablet PO 08/08/24 03:35
Q4HPRN PRN
TOUSSAINT, mild pain, or temp >100.4F
Albuterol 2 puff 07/11/24 03:36
Albuterol Hfa [90 Mcg/Dose] Inhaler INH
R Q4HPRN PRN
sob/wheezing
Protocol
Ammonium Lactate 1 applic 07/11/24 08:00 07/11/24 09:08
Ammonium Lactate 12% (Lotion) 240 Ml Bottle TOPICAL 08/08/24 07:59 1 applic
BID OFELIA Administration
Aspirin 81 mg 07/11/24 08:00 07/11/24 09:02
Aspirin 81 Mg (Enteric Coated) Tablet PO 08/08/24 07:59 81 mg
DAILY OFELIA Administration
Atorvastatin Calcium 40 mg 07/11/24 22:00
Atorvastatin (Lipitor) 40 Mg Tablet PO 08/08/24 21:59
HS OFELIA
Collagenase 1 applic 07/11/24 08:00 07/11/24 09:04
Collagenase Ointment 2.5 Gram Jar TOPICAL 08/08/24 07:59 1 applic
DAILY OFELIA Administration
Digoxin 125 mcg 07/11/24 08:00 07/11/24 09:03
Digoxin 125 Mcg Tablet PO 08/08/24 07:59 125 mcg
DAILY OFELIA Administration
Enoxaparin Sodium 40 mg 07/11/24 18:00
Enoxaparin Sodium 40 Mg/0.4 Ml Syringe SC 08/08/24 17:59
QPM OFELIA
Fenofibrate 48 mg 07/11/24 22:00
Fenofibrate 48 Mg Tablet PO 08/08/24 21:59
HS OFELIA
Furosemide 60 mg 07/11/24 08:00 07/11/24 09:02
Furosemide 20 Mg Tablet PO 08/08/24 07:59 60 mg
BID OFELIA Administration
Furosemide 40 mg 07/11/24 12:00
Furosemide 80 Mg Tablet PO 08/08/24 11:59
NOON OFELIA
Gabapentin 300 mg 07/11/24 08:00 07/11/24 09:02
Gabapentin 300 Mg Capsule PO 08/08/24 07:59 300 mg
BID OFELIA Administration
Insulin Aspart 0 units 07/11/24 07:30
Insulin Aspart Low Resistance 300 Units/3 Ml Pen.Injctr SC 08/08/24 07:29
AC OFELIA
Protocol
Levothyroxine Sodium 125 mcg 07/11/24 06:00 07/11/24 06:27
Levothyroxine 125 Mcg Tablet PO 08/08/24 05:59 125 mcg
DAILY@0600 OFELIA Administration
Metformin HCl 1,000 mg 07/11/24 08:00 07/11/24 09:02
Metformin 500 Mg Extended Release Tablet PO 08/08/24 07:59 1,000 mg
BID OFELIA Administration
Metoprolol Succinate 25 mg 07/11/24 08:00 07/11/24 09:02
Metoprolol 25 Mg Extended Release Tablet PO 08/08/24 07:59 25 mg
DAILY OFELIA Administration
Miconazole Nitrate 0 applic 07/11/24 08:00
Miconazole Powder Bottle TOPICAL 08/08/24 07:59
BID OFELIA
Montelukast Sodium 10 mg 07/11/24 08:00 07/11/24 09:02
Montelukast Sodium 10 Mg Tablet PO 08/08/24 07:59 10 mg
DAILY OFELIA Administration
Pantoprazole Sodium 40 mg 07/11/24 08:00 07/11/24 09:03
Pantoprazole 40 Mg Delayed Release Tablet PO 08/08/24 07:59 40 mg
DAILY OFELIA Administration
Fluticasone/Salmeterol 2 puff 07/11/24 04:37
Advair Hfa 115/21 Inhaler INH 08/08/24 04:36
R BIDPRN PRN
sob/wheezing
Sennosides 8.6 mg 07/11/24 03:36
Sennosides (Senokot) 8.6 Mg Tablet PO 08/08/24 03:35
BID PRN
constipation
Sertraline HCl 50 mg 07/11/24 22:00
Sertraline 50 Mg Tablet PO 08/08/24 21:59
HS OFELIA
Spironolactone 25 mg 07/11/24 08:00 07/11/24 09:02
Spironolactone 25 Mg Tablet PO 08/08/24 07:59 25 mg
DAILY OFELIA Administration
Verapamil HCl 240 mg 07/11/24 08:00 07/11/24 09:03
Verapamil 240 Mg (Extended Release) Tablet PO 08/08/24 07:59 240 mg
DAILY OFELIA Administration
Home Medications
�Medication �Instructions �Recorded
albuterol sulfate 90 mcg/actuation 2 puff inhalation R Q4HPRN PRN 09/27/19
aerosol inhaler sob/wheezing
atorvastatin 40 mg tablet 40 mg PO HS High cholesterol 04/23/21
fenofibrate nanocrystallized 48 mg 48 mg PO HS High cholesterol 07/13/21
tablet
montelukast 10 mg tablet 10 mg PO DAILY Allergies 11/30/21
pantoprazole 40 mg tablet,delayed 40 mg PO DAILY Gastrointestinal 11/30/21
release issue
sertraline 50 mg tablet 50 mg PO HS Depression 11/30/21
digoxin 125 mcg (0.125 mg) tablet 125 mcg PO DAILY Heart 08/22/23
Disease/Condition
fluticasone 250 mcg-salmeterol 50 1 inh inhalation R DAILYPRN PRN 08/22/23
mcg/dose blistr powdr for sob/wheezing
inhalation (Advair Diskus)
levothyroxine 125 mcg tablet 125 mcg PO DAILY Thyroid 08/22/23
(Synthroid)
spironolactone 25 mg tablet 25 mg PO DAILY Heart Failure 08/22/23
verapamil 240 mg 24 hr 240 mg PO DAILY Blood Pressure 11/04/23
capsule,extended release
metoprolol succinate 25 mg 25 mg PO DAILY #30 tabs 11/06/23
tablet,extended release 24 hr
gabapentin 300 mg capsule 300 mg PO BID sleep/pain #10 caps 12/14/23
acetaminophen 325 mg tablet 650 mg PO Q6HPRN PRN mild 06/17/24
(Tylenol) pain/fever
aspirin 81 mg tablet,delayed 81 mg PO DAILY 06/17/24
release
furosemide 80 mg tablet 40 mg PO NOON 06/17/24
furosemide 80 mg tablet 60 mg PO BID 06/17/24
insulin glargine 100 unit/mL 3 unit SC HS DM 06/17/24
subcutaneous solution (Lantus
U-100 Insulin)
metformin 500 mg tablet,extended 1,000 mg PO BID 06/17/24
release 24 hr
therapeutic multivitamin 1 tab PO DAILY 06/17/24
vitamin A and D 1 applic topical DAILYPRN PRN 06/17/24
diaper rash
ammonium lactate 12 % lotion 1 applic topical BID #400 grams 06/21/24
collagenase clostridium histo. 250 1 applic topical DAILY #90 grams 06/21/24
unit/gram topical ointment (Santyl)
estradiol 0.01% (0.1 mg/gram) 1 appful vaginal MoWeFr@2200 #42.5 06/21/24
vaginal cream grams
linezolid 600 mg tablet 600 mg PO BID 7 days #14 tabs 06/21/24
miconazole nitrate 2 % topical 1 applic topical BID #85 grams 06/21/24
powder (Miconazorb AF)
Past History
Past History
ED Past Medical History: Arrthythmia (Atrial fibrillation), Asthma, CAD, Cancer (Skin, meningioma grade 2 with radiation therapy and craniotomy), CHF, COPD, HTN, Hypercholesterolemia, NIDDM, MA, Hypothyroidism, Psychiatric (Major depression), Other
(PNA, Cellulitis, Chronic Lymphedema, bilateral heel ulcerations, osteomyelitis of the left heel, morbid obesity) and Other (Sepsis, peripheral neuropathy, anemia, rosacea, COVID 19, seizure disorder, pulmonary artery hypertension, nephrolithiasis,
B complex deficiency, prior acute respiratory failure); Negative Renal failure (Stage IIIa)
ED Past Surgical History: Brain (Right frontal craniotomy for meningioma 2022), Cardiac (cardioversion, Stents X 2, Watchman device), Cholecystectomy (1982), Orthopedic (Left reverse shoulder arthroplasty December 2023), Urological (Bladder repair,
kidney stone extraction) and Other (Right femoral artery cannulation January 2024, Mohs surgery forehead 2021)
Social History
Tobacco: Former smoker
Alcohol: Daily (Vodka 1 large glass)
Drug: None
Personal:
Living: alone
Employment: Retired
Family History
Family History: Hypertension
[2024-07-11] MEDS: NOVOLOG FLEXPEN-LOW RESISTANCE 1 UNITS SC ×2 (10:17→12:54)
[2024-07-11] MEDS: DESENEX/MITRAZOL/ZEASORB 1 APPLIC TOPICAL ×2 (10:18→20:44)
[2024-07-11 10:57] LABS: TSH Reflex To Free T4 3.28 uIU/ml (0.47-4.68)
--- NOTE | 2024-07-11 11:09 | W.PN.UPDATE ---
Update Note
Progress Note Update
I saw and evaluated the patient. I reviewed the resident�s note and agree with findings and plan as documented in the resident�s note.
Patient seen and examined while undergoing EEG. No new complaints.
Gen: NAD, AAOx3.
Eyes: EOMI, PERRLA, no scleral icterus.
Neck: supple.
CV: irreg/irreg +S1/S2, no m/r/g.
Resp: CTAB, no rales, wheezes, or rhonchi.
Abd: +BS, soft, NT, ND
Skin: No rashes.
Neuro: CN 2-12 intact, non-focal.
Psych: Normal mood and affect.
MRI brain: Status post right frontal craniotomy with adjacent encephalomalacia, stable from recent CT examinations. No evidence of acute intracranial abnormality. No evidence for a focal area of acute to subacute infarction.
TIA:
-had 10 - 20 minutes of slurred speech and facial droop now resolved. No prior CVA. s/p watchman fo afib. On aspirin/statin.
-acute CVA ruled out with MRI brain as above
-cont ASA/statin
-seen by neuro, currently undergoing EEG
-no AC due to watchman
Chronic hypoxemic respiratory failure:
-Due to combined restrictive/obstructive lung disease, morbid obesity, chronic HFpEF.
-No signs of acute pulmonary infection or COPD exacerbation. Volume status at baseline.
-cont 5L NC O2
-Continue Singulair, PRN Albuterol. Change Advair to standing.
Other problems:
Chronic pressure ulcer in left heel: would care
Right finger nodules, likely tophi, ID to see
Permanent Afib: h/o Watchman, cont BB/dig/Verapamil
Chronic HFpEF: cont home lasix. Daily wts, I/Os, FR, cont BB Aldactone.
FULL/lovenox
--- NOTE | 2024-07-11 11:25 | CON.ID ---
Consultation
-
Date/Time Consultation Requested: July 11, 2024 0336
Date/Time Consultation Performed: July 11, 2024 1130
Requesting Provider: Dr. Otilia Lakhani
Performing Provider: Dr. Lucrecia Rome
Reason for Consultation: Question of subcutaneous finger abscess versus calcification
Chief Complaint / Past History
Chief Complaint
Facial droop
History of Present Illness
73-year-old female with diabetes mellitus, neuropathy, chronic lymphedema, chronic bilateral calcaneus wounds, hx left heel osteomyelitis status post 6 weeks of antibiotics, multiple antibiotic allergies, recent hospitalization June 17 to June
17 with right lower extremity cellulitis treated with daptomycin the hospital then transition to outpatient linezolid. She presented to the hospital yesterday due to left-sided facial droop lasted about 15 minutes now resolved. The patient
complains about her right index finger with swelling, pain, 2 right lesions. Symptoms started approximately 3 days ago. She did not bang her finger. She did have remote history of gout but on her toe.
Past History
Additional Past Medical History:
Diabetes mellitus type 2
Neuropathy
Hypertension
CAD status post stents
Carotid artery disease
paroxysmal atrial fibrillation
Watchman procedure
CHF
PAD failed attempt left lower extremity angioplasty
Class III obesity BMI 46.5
SAMIA
Pulmonary HTN
Chronic lymphedema
Asthma
Left groin mass
Insomnia
Rosacea
Nephrolithiasis
Cholecystectomy
Bladder repair
Chronic bilateral heel wounds
Left heel osteomyelitis I+D 01/2024 s/p 6wks meropenem and linezolid
Left shoulder replacement
Allergy History:
cat dander Allergy (Verified 07/10/24 22:16)
ASTHMA/SOB
levofloxacin [From Levaquin Leva-Carlos] Allergy (Verified 07/10/24 22:16)
Hives
Penicillins Allergy (Verified 07/10/24 22:16)
Shortness of Breath
piperacillin Allergy (Verified 07/10/24 22:16)
Anaphylaxis, acute hypoxemic resp f, hypotensitching 01/25/24
Sulfa (Sulfonamide Antibiotics) Allergy (Verified 07/10/24 22:16)
Hives
vancomycin [Vancomycin] Allergy (Verified 07/10/24 22:16)
Rash/red tino syndrome
Medications Reviewed: Yes
Current Antibiotics:
None
Social History
Tobacco: Former Smoker
Alcohol: Former
Drug: None
Family History
Family History: Not Pertinent
Review of Systems
Review of Systems
General: Negative Fever or Chills
HEENT: Negative Sinus Problems or Headache
Cardiovascular: Negative Chest Pain
Respiratory: Negative Dyspnea or Cough
Gasteroenterology: Negative Nausea, Vomiting or Diarrhea
Genital / Urological: Negative Dysuria or Flank Pain
Neurological: Negative Dizziness
All systems: All other systems were reviewed and were negative
Vital Signs
Temp Pulse Resp BP Pulse Ox
97.3 F 84 18 118/54 95
07/11/24 07:48 07/11/24 09:03 07/11/24 07:48 07/11/24 09:02 07/11/24 07:48
Physical Exam
Physical Exam
Constitutional: No Acute Distress and Obese
Head: Other (No frontal or max or sinus tenderness)
Eyes: No Conjunctival Hemorrhage and Sclera Anicteric
Cardiovascular: Irregular Rate and S1/S2
Pulmonary: Clear
Gastrointestinal: Soft, Non Tender, Non Distended and Normal Bowel Sounds
Extremities: Edema (BLE lymphedema); Negative Erythema (no acute redness)
Musculoskeletal: Other (Right pointer finger PIPJ > DIPJ + induration, erythema, distal finger with 2 white flat firm lesions)
Neurological: AO x 3
Lab / Diagnostic Study Results
07/11/24 07:27
07/11/24 07:27
Abs Immat Gran (auto) 0.1 10^3/uL (0-0.05) H 07/10/24 22:57
Absolute Neuts (auto) 5.6 10^3/uL (1.4-6.5) 07/10/24 22:57
Absolute Lymphs (auto) 0.9 10^3/uL (1.2-3.4) L 07/10/24 22:57
Absolute Monos (auto) 0.6 10^3/uL (0.1-0.6) 07/10/24 22:57
Absolute Basos (auto) 0.1 10^3/uL (0-0.2) 07/10/24 22:57
Immature Gran % 0.9 % (0-0.5) H 07/10/24 22:57
Neutrophils % 74.9 % (42.2-75.2) 07/10/24 22:57
Lymphocytes % 11.5 % (20.5-51.1) L 07/10/24 22:57
Monocytes % 7.4 % (1.7-9.3) 07/10/24 22:57
Eosinophils % 4.4 % (0-6) 07/10/24 22:57
Basophils % 0.9 % (0-2) 07/10/24 22:57
PT 14.8 Sec (11.4-14.6) H 07/10/24 22:57
INR 1.10 07/10/24 22:57
Microbiology Results
Micro:
07/11/24 05:02 MRSA Screen - Pending
Nose
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 No radiographic evidence for aggressive osseous destruction, soft
tissue gas, or radiopaque foreign body.
07/11/24 Brain MRI: Status post right frontal craniotomy with adjacent encephalomalacia, stable from recent CT examinations. No evidence of acute intracranial abnormality. No evidence for a focal area of acute to subacute infarction.
Assessment / Plan
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
- add-on serum uric acid
- Start gout treatment prednisone 40mg pp daily.
# Chronic BLE heel wounds
- Wound Rn will evaluate
[2024-07-11 11:33] LABS: Folate 10.6 ng/ml (2.76-20); Vitamin B12 296 pg/ml (239-931)
--- NOTE | 2024-07-11 11:34 | W.PN.HOSP.TC ---
Today's Communication/Plan
-
.
Assessment / Plan
Assessment / Plan
1. TIA/CVA
- 10 - 20 minutes of slurred speech and facial droop, WHEAT GROWER, now resolved.
- Hx: No prior CVA. s/p watchman fo A/fib. On aspirin/statin.
- CT (07/10): No acute intracranial abnormalities.
- MRI (07/11): No evidence of acute intracranial abnormalities. Possible mastoiditis.
- Continue aspirin/statin for now
- Appreciate Neuro Recommendations:
Check MRI of brain preferably with and without contrast due to the patient's prior history of craniotomy and meningioma
Check EEG to determine if the patient had focal onset generalizing seizure
Check blood work potential metabolic causes
Would add clopidogrel to the patient's usual aspirin due to the patient's high risk for vascular causes of stroke, 21 days then discontinue
Goal of normotension
Goal of normoglycemia
Replace gabapentin with alternative medication to reduce the patient's risk of obesity secondary to medication exposure, change to Pregabalin 50 mg at bedtime
Patient is also be considered for replacement of sertraline with an alternative SSRI not associated with weight gain
- Fasting Lipid Panel unremarkable.
- No AC due to watchman.
- No carotid bruits on examination.
2. Hypoxia -
- Combined restrictive/obstructive lung disease, morbid obesity, CHF. No signs of acute pulmonary infection or COPD exacerbation. Volume status at baseline
- 95% 5L NC
- has appointment with pulmonary next week with Dr. Marquez; will place consult to see while here.
- continue home montelukast, ics/laba, albuterol and diuretics; change ADvair to standing order
3. Stage 2 Pressure Wound of the Left Heel -
- Chronic pressure ulcer in left heel. More drainage at this time.
- wound care consult
- may need repeat debridement
4. Stage 2 Pressure Wound of the Right Heel
- - Chronic pressure ulcer in left heel.
- Wound Care
5. Right finger nodules - tophi? versus abscess.
- hold abx
- ID consult
6. AFIB
- continue digoxin
- metoprolol
7. CHF
- continue lasix 60 bid, 40 noon
- fluid restriction and daily weight
- continue spironolactone, verapamil
DVT PPX lovenox sq
Code Status - Full Code
Anticipated Discharge: 24 - 48 hours
Subjective/Interval History
-
Date of Service: July 11, 2024
Patient seen and examined while resting comfortably in bed, about to eat her breakfast. She has no new complaints this morning. States that she has had no episodes of facial droop or slurred speech overnight or this morning.
Objective Data
-
Labs:
Laboratory Results
07/10/24 07/11/24
22:57 07:27
WBC 7.5 6.2
Hgb 8.6 L 8.7 L
Hct 27.9 L 28.8 L
Plt Count 230 220
Sodium 139 140
Potassium 4.0 3.9
Chloride 101 102
Carbon Dioxide 31 H 35 H
BUN 31 H 30 H
Creatinine 1.0 0.9
Glucose 175 H 135 H
Calcium 9.9 8.9
Total Bilirubin 0.8
AST 16
ALT < 10
Alkaline Phosphatase 87
Vital Signs:
Vital Signs
Temp Pulse Resp BP Pulse Ox
97.3 F 84 18 118/54 95
07/11/24 07:48 07/11/24 09:03 07/11/24 07:48 07/11/24 09:02 07/11/24 07:48
I&O
07/10/24 07/11/24 07/12/24
06:59 06:59 06:59
Intake Total 120 / 120
Balance 120 / 120
Review of Systems
-
History Source: Patient
Constitutional: Reports No Symptoms
EENT: Reports No Symptoms Reported
Respiratory: Reports No Symptoms and Other (on nasal cannula)
Cardiac: Reports No Symptoms
Abdomen/GI: Reports No Symptoms
Skin: Reports Other (tophus of R index finger, pressure ulcer of the left lower extremity)
Neuro: Reports No Symptoms
Physical Exam
-
General: No Apparent Distress, Comfortable and Conversant; Negative Slurred Speech
HEENT: Normocephalic, Atraumatic, PERRLA and Other (extraocular motions intact, cranial nerves 2-12 intact, no evidence of facial asymmetry)
Respiratory: Clear to Auscultation; Negative Wheezes, Rales or Rhonchi
Cardiac: Irregular Rhythm; Negative Murmur, Rub, Carotid Bruits or Gallop
GI: Soft and Nontender
Musculoskeletal: No Clubbing, No Cyanosis, Edema, Right Lower Extrem, Edema, Left Lower Extrem and Other (tophus of the right index finger with mild surrounding erythema and warmth; stage 2 pressure ulceration of the left and right heels; dressings
are intact)
Skin: Warm and Dry
Neuro: Awake, Alert and Oriented
Psych: Calm
Data Reviewed
-
CT Scan: Report Reviewed by me and Discussed with Patient
MRI: Report Reviewed by me and Discussed with Patient
Labs: Labs Reviewed by me and Discussed with Patient
--- NOTE | 2024-07-11 12:09 | EEG.RPT ---
Electroencephalogram Report
Recording
Date of EE07/11/24
Type of EEG: Routine
Length of EEG recordin minutes
Done with Video Recording: Yes
Patient Status: Inpatient
Recording Conditions: Awake, Drowsy and Asleep
Hyperventilation Performed: No
Photic Stimulation Performed: Yes
Report
LESS THAN 1 HOUR EEG INTERPRETATION:
Unremarkable EEG for age
CLINICAL CORRELATION:
A normal EEG does not rule out a diagnosis of epilepsy. If clinical suspicion for seizure persists, a prolonged recording may be warranted.
Clinical correlation is advised.
METHODS:
A 21 channel digitized electroencephalogram (EEG) was performed using the 10/20 international system of electrode placement and one-lead of ECG recorded. The [employer] quantitative EEG system was utilized.
ELECTROENCEPHALOGRAPHER IMPRESSION(S):
Quality of study
Good
Background
There was an unremarkable anterior-posterior voltage gradient of alpha frequency.
With eye opening the background activity changed to a low voltage mixture of frequencies.
There were no significant asymmetries of background activity noted.
Sleep
Drowsiness present
Stage 1 present
Stage 2 present
Hyperventilation
No activation
Photic Stimulation
No activation
ECG
Normal sinus rhythm
[2024-07-11 12:12] LABS: Uric Acid 11.5 mg/dl (2.5-6.2)
[2024-07-11 12:31] LABS: Glucose - Point of Care 150 mg/dl (70-99)
[2024-07-11] MEDS: LASIX 40 MG PO (12:53)
[2024-07-11] MEDS: DELTASONE 40 MG PO (12:53)
[2024-07-11] MEDS: PLAVIX 75 MG PO (12:53)
--- NOTE | 2024-07-11 16:00 | WOUNDNOTE ---
[facility] RN note: Patient admitted with TIA
See H&P for complete history.
PMH: Hypertension, Diabetes type 2, Chronic lymphedema, CHF, Acute hypoxic respiratory insufficiency, Benign hypertension, Morbid obesity, Chronic kidney disease stage 3, Paroxysmal atrial fibrillation, Hypothyroidism, bilateral heel wound
debridement, left heel osteomyelitis
Wound Location and type/assessment: Patient admitted with bilateral heel ulcerations POA. Patient follows with [facility]. Per chart review, both heels were debrided on 01/26. The left heel was treated for osteomyelitis. The left heel appears
to be a healing stage 4 PI. Patient reports increased drainage of the heel over the past few days. The periwound is macerated. The right heel is covered with yellow slough. Per patient, she has been using Santyl to right heel as ordered by Podiatry.
Buttock and sacral creased with MASD vs stage 2 PI. Patient reports wearing Pur wick at night with brief. Patient transferring to [facility] with staff assistance and encouragement.
Appetite: Good
Pressure redistribution devices in place: Static Air overlay added to bed during assessment, heels off-loaded with air cushion under calves. Turning schedule. Fiber filled boots ordered.
Plan: Wound care provided as ordered. Calazime can be used for open areas on buttocks/sacrum. Patient would like to see a outside plant technician while she is here as she is missing a scheduled appointment due to hospitalization. Hospitalist notified of
request. Patient declining compression at this time. Will confirm orders with hospitalist and update nurse. Updated care plan and will follow as needed.
--- NOTE | 2024-07-11 16:29 | CM ---
Patient seen bedside.
Patient lives with son and his family 2SH,, patient stays on 1st floor.
1 step to enter home, patient has w/c ramp.
Equipment: w/c, walker, shower chair, stair glide, hospital bed an home oxyge.
Patient has [facility].
patient has been to [facility]
patient would like VN on D/C.
PCP: Jeremi;or
Pharmacy: [facility].
D/C plan: per p[t's strong request, home with [facility] and family support.
--- NOTE | 2024-07-11 16:35 | CM ---
Addendum entered by Landy Chery 07/11/24 16:54:
CLOUD completed.
Original Note:
Patient seen bedside.
Patient lives with son and his family 2SH,, patient stays on 1st floor.
1 step to enter home, patient has w/c ramp.
Equipment: w/c, walker, shower chair, stair glide, hospital bed an home oxyge.
Patient has [facility] home care.
patient has been to [facility]
patient would like VN on D/C.
PT/OT evals needed, TT to MD.
PCP: [facility]
Pharmacy: [facility].
[facility] family [facility]
--- NOTE | 2024-07-11 16:40 | CON.PUL ---
Consultation
Consultation Request
Date/Time Consultation Requested: 07/11
Date/Time Consultation Performed: 07/11
Reason for Consultation: shortness of breath
Medical History
-
History of Present Illness:
history obtained from the patient, reviewing both inpatient and outpatient records. Some history obtained from the daughter at bedside. Patient is a 73-year-old female with complex medical history including atrial fibrillation status post
watchman procedure, coronary disease, recurrent heart failure, chronic lymphedema who presents with questionable TIA. She developed a facial droop and speech difficulty. Patient states lasted 20 minutes. She is on home oxygen. She was recently
treated for cellulitis. Her symptoms resolved. She also describes lower extremity drainage per records. She has a history of osteomyelitis in the left ankle completed 10 weeks of antibiotics. Upon arrival to [facility], afebrile, pulse 65,
breathing at 20, blood pressure 102/59, 98%. Records suggest that she required 5 L of oxygen. She was suspected as having cellulitis involving her right index finger. We are asked to comment on her pulmonary process
.
PMH: Atrial fibrillation, hypertension, hyperlipidemia, diabetes, hypothyroidism, chronic lower extremity lymphedema, GERD, history of asthma, morbid obesity, restrictive lung disease, history of carotid disease status post stent �2, recurrent heart
failure, nephrolithiasis. History of cholecystectomy, nephrolithiasis with kidney stone removal, tonsillectomy, bladder repair, multiple cardioversions and ablation, history of skin cancer, heel debridement, craniotomy for meningioma 2022
Past Medical History
Past Medical History: None ( see above)
Past Surgical History: None ( see above)
Social History
Tobacco: Former Smoker ( quit many years ago, 20+ pack year history)
Alcohol: Occasional
Drug: None
Living: With Family
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
Family History
Family History: Other ( negative for lung disease, lung cancer, blood clots)
Allergies / Home Medications
Allergies
Allergy/AdvReac Type Severity Reaction Status Date / Time
cat dander Allergy ASTHMA/SOB Verified 07/10/24 22:16
levofloxacin Allergy Hives Verified 07/10/24 22:16
[From Levaquin Leva-Carlos]
Penicillins Allergy Shortness Verified 07/10/24 22:16
of Breath
piperacillin Allergy Anaphylaxis, Verified 07/10/24 22:16
acute
hypoxemic
resp f,
hypotensitching
01/25/24
Sulfa (Sulfonamide Allergy Hives Verified 07/10/24 22:16
Antibiotics)
vancomycin [Vancomycin] Allergy Rash/red Verified 07/10/24 22:16
tino
syndrome
Home Medications
�Medication �Instructions �Recorded �Confirmed �Last Taken �Type
albuterol sulfate 90 mcg/actuation 2 puff inhalation R Q4HPRN PRN 09/27/19 06/17/24 11/21/23 History
aerosol inhaler sob/wheezing
atorvastatin 40 mg tablet 40 mg PO HS High cholesterol 04/23/21 06/17/24 02/03/24 History
fenofibrate nanocrystallized 48 mg 48 mg PO HS High cholesterol 07/13/21 06/17/24 02/03/24 History
tablet
montelukast 10 mg tablet 10 mg PO DAILY Allergies 11/30/21 06/17/24 02/04/24 History
pantoprazole 40 mg tablet,delayed 40 mg PO DAILY Gastrointestinal 11/30/21 06/17/24 02/04/24 History
release issue
sertraline 50 mg tablet 50 mg PO HS Depression 11/30/21 06/17/24 02/03/24 History
digoxin 125 mcg (0.125 mg) tablet 125 mcg PO DAILY Heart 08/22/23 06/17/24 02/04/24 History
Disease/Condition
fluticasone 250 mcg-salmeterol 50 1 inh inhalation R DAILYPRN PRN 08/22/23 06/17/24 08/04/23 History
mcg/dose blistr powdr for sob/wheezing
inhalation (Advair Diskus)
levothyroxine 125 mcg tablet 125 mcg PO DAILY Thyroid 08/22/23 06/17/24 02/04/24 History
(Synthroid)
spironolactone 25 mg tablet 25 mg PO DAILY Heart Failure 08/22/23 06/17/24 02/04/24 History
verapamil 240 mg 24 hr 240 mg PO DAILY Blood Pressure 11/04/23 06/17/24 02/04/24 History
capsule,extended release
metoprolol succinate 25 mg 25 mg PO DAILY #30 tabs 11/06/23 06/17/24 02/04/24 Rx
tablet,extended release 24 hr
gabapentin 300 mg capsule 300 mg PO BID sleep/pain #10 caps 12/14/23 06/17/24 02/04/24 Rx
acetaminophen 325 mg tablet 650 mg PO Q6HPRN PRN mild 06/17/24 06/17/24 Unknown History
(Tylenol) pain/fever
aspirin 81 mg tablet,delayed 81 mg PO DAILY 06/17/24 06/17/24 Unknown History
release
furosemide 80 mg tablet 40 mg PO NOON 06/17/24 06/17/24 Unknown History
furosemide 80 mg tablet 60 mg PO BID 06/17/24 06/17/24 Unknown History
insulin glargine 100 unit/mL 3 unit SC HS DM 06/17/24 06/17/24 Unknown History
subcutaneous solution (Lantus
U-100 Insulin)
metformin 500 mg tablet,extended 1,000 mg PO BID 06/17/24 06/17/24 Unknown History
release 24 hr
therapeutic multivitamin 1 tab PO DAILY 06/17/24 06/17/24 Unknown History
vitamin A and D 1 applic topical DAILYPRN PRN 06/17/24 06/17/24 Unknown History
diaper rash
ammonium lactate 12 % lotion 1 applic topical BID #400 grams 06/21/24 Unknown Rx
collagenase clostridium histo. 250 1 applic topical DAILY #90 grams 06/21/24 Unknown Rx
unit/gram topical ointment (Santyl)
estradiol 0.01% (0.1 mg/gram) 1 appful vaginal MoWeFr@2200 #42.5 06/21/24 Unknown Rx
vaginal cream grams
linezolid 600 mg tablet 600 mg PO BID 7 days #14 tabs 06/21/24 Unknown Rx
miconazole nitrate 2 % topical 1 applic topical BID #85 grams 06/21/24 Unknown Rx
powder (Miconazorb AF)
Review of Systems
-
All other systems: Negative unless noted
Vitals / Labs / Diagnostic Testing
Vital Signs
Temp Pulse Resp BP Pulse Ox
97.7 F 70 20 110/53 93
07/11/24 15:00 07/11/24 15:00 07/11/24 15:00 07/11/24 15:00 07/11/24 15:00
Lab Data
07/11/24 07:27
07/11/24 07:27
Laboratory Results
07/10/24
22:57
PT 14.8 H
INR 1.10
APTT 26.7
Diagnostic Testing:
Physical Exam
-
HEENT: Normocephalic, Anicteric and Other (Large snack)
Cardiovascular: S1/S2, Irregular Rhythm, Murmur ( 2/6 systolic murmur) and Peripheral Edema ( chronic venous stasis changes, chronic lymphedema)
Respiratory: Wheeze (n), Rales (few), Rhonchi (n) and Non-Labored Respirations
GI: Soft, Non Distended ( morbidly obese) and Non Tender
Neurology: Awake, Alert and No Motor Deficits ( generally weak)
General: Comfortable ( conversant)
Assessment
-
73-year-old female with complex medical history including morbid obesity, restrictive lung disease, diabetes, history of recurrent heart failure, atrial fibrillation, asthma who presents with questionable TIA symptoms resolved after 20 minutes.
Patient noted to be hypoxic requiring 5 L. We are asked to comment on primary process
Status post TIA, 20 minutes of symptoms
Aphasia, facial droop, resolved
Recent lower extremity cellulitis now with right finger cellulitis
Acute hypoxic respiratory insufficiency requiring 5 L of oxygen
Dilated hypokinetic right ventricle per prior echo
PA pressure 53
Right bundle branch block
Moderate to severe MR per echo November 2023
Recent history of left heel osteomyelitis status post 6 weeks of antibiotics
Conditions present prior to admission
Hypertension/hyperlipidemia
Coronary disease with history of stent
Insulin-dependent diabetes
History of meningioma with craniotomy in the past
History of asthma, not on maintenance therapy
Morbid obesity, high suspicion for sleep apnea
Negative PSG, desaturation arnel 84%
Chronic atrial fibrillation on Xarelto
Chronic lymphedema
Restrictive lung disease, FVC 72%, DLCO 30%
Morbid obesity, sedentary
Multiple antibiotic allergies
Plan/recommendations
At this time, patient is without complaints. She is on oxygen.
There is no chest x-ray.
Chest x-ray from 06/17/24 suggests mild interstitial changes. CT chest at that time, Negative pulmonary embolism. There is a large pulmonary artery. There is no obvious interstitial changes
EKG 07/10/24 reveals right bundle branch with atrial fibrillation. This is chronic
Echocardiogram suggests RV dysfunction, dilated RV and pulmonary hypertension along with mitral regurgitation
Moving forward
Patient with extremely complex medical history
Salient features include severe gas exchange defect at baseline, RV dysfunction with pulmonary hypertension, valvular disease, morbid obesity
Upon reviewing outpatient records, patient is not on oxygen
She does have a history of hypoxia with sleep
Check chest x-ray
She may require a repeat echocardiogram
We oxygen and assess room air saturation
Will check ABG in the a.m. on room air
There is no clear evidence of pneumonia but await chest x-ray
Recent CT chest from 06/17/24 without obvious pulmonary process
Head of bed elevated, aspiration precautions
Patient would likely multifactorial causes for shortness of breath and hypoxia.
Agree with efforts for diuresis as patient feels her weight has increased
There is no wheezing on exam but agree with continuing Advair.
Prednisone for gout flare of right index finger
DVT prophylaxis: Lovenox
Reviewed with patient and daughter at bedside
We will follow
[2024-07-11 17:10] LABS: Glucose - Point of Care 256 mg/dl (70-99)
[2024-07-11] MEDS: NOVOLOG FLEXPEN-LOW RESISTANCE 3 UNITS SC (18:30)
[2024-07-11] MEDS: LOVENOX 40 MG SC (18:32)
[2024-07-11] MEDS: ADVAIR HFA 115/21 MCG INHALER 2 PUFF INH (20:09)
[2024-07-11] MEDS: TYLENOL 650 MG PO (20:47)
[2024-07-11] MEDS: LIPITOR 40 MG PO (21:13)
[2024-07-11] MEDS: ZOLOFT 50 MG PO (21:13)
[2024-07-11] MEDS: LYRICA 50 MG PO (21:14)
[2024-07-11] MEDS: TRICOR 48 MG PO (21:15)
[2024-07-11 21:34] LABS: Glucose - Point of Care 258 mg/dl (70-99)
[2024-07-12 03:00] VITALS: BP 118/59
[2024-07-12] MEDS: TYLENOL 1000 MG PO (03:53)
[2024-07-12] MEDS: SYNTHROID 125 MCG PO (03:54)
[2024-07-12] MEDS: SANTYL OINTMENT 1 APPLIC TOPICAL ×2 (04:38→08:32)
[2024-07-12 05:17] LABS: B.E. 4.9 mmol/L; HCO3 29.2 mmol/L (21-28); O2 Saturation % 98.5 % (94-98); PCO2 41 mmHg (32-35); PO2 96 mmHg (83-108); pH 7.46 (7.35-7.45)
[2024-07-12 06:00] VITALS: BMI 46.1
[2024-07-12 07:23] VITALS: BP 130/67
[2024-07-12 07:37] LABS: Glucose - Point of Care 209 mg/dl (70-99)
--- NOTE | 2024-07-12 07:55 | W.PN.UPDATE ---
Update Note
Progress Note Update
I saw and evaluated the patient. I reviewed the resident�s note and agree with findings and plan as documented in the resident�s note.
No new complaints.
Gen: NAD, AAOx3, appears chronically ill.
Eyes: EOMI, PERRLA, no scleral icterus.
Neck: supple.
CV: remains irreg/irreg +S1/S2, no m/r/g.
Resp: CTAB anteriorly, no rales, wheezes, or rhonchi.
Abd: +BS, soft, NT, ND
Skin: No rashes.
Neuro: CN 2-12 intact, non-focal.
Psych: Normal mood and affect.
MRI brain: Status post right frontal craniotomy with adjacent encephalomalacia, stable from recent CT examinations. No evidence of acute intracranial abnormality. No evidence for a focal area of acute to subacute infarction.
EEG: Unremarkable EEG for age
Carotid ultrasound:
1. Heavily calcified plaque within the right carotid bulb, velocity measurements suggestive of greater than 70% stenosis as per modified Society of Radiologists in Ultrasound consensus criteria (IAC carotid criteria white paper, 2020).
2. Minimal left carotid bulb plaque, measurements suggestive of 50-69% stenosis.
CXR: Bilateral atelectasis. Progressed.
TIA:
-had 10 - 20 minutes of slurred speech and facial droop now resolved. No prior CVA. s/p watchman fo afib. On aspirin/statin.
-acute CVA ruled out with MRI brain as above
-cont ASA/statin/Plavix as per neuro
-EEG unremarkable as above
-no AC due to watchman
-c/s vascular re:SIOBHAN
Chronic hypoxemic respiratory failure:
-Due to combined restrictive/obstructive lung disease, morbid obesity, chronic HFpEF. 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
-No signs of acute pulmonary infection or COPD exacerbation. Volume status at baseline.
-cont 5L NC O2
-Continue Singulair/Advair, PRN Albuterol.
Gout, R 2nd finger tophi:
-cont pulse Prednisone
Other problems:
Chronic pressure ulcer in left heel: would care
Right finger nodules, likely tophi, ID to see
Permanent Afib: h/o Watchman, cont BB/dig/Verapamil
Chronic HFpEF: cont home lasix. Daily wts, I/Os, FR, cont BB Aldactone.
FULL/lovenox
Dispo: Likely d/c after seen by vascular.
[2024-07-12] MEDS: ADVAIR HFA 115/21 MCG INHALER 2 PUFF INH ×2 (07:56→20:28)
[2024-07-12] MEDS: ASPIR LOW (ENTERIC COATED) 81 MG PO (08:30)
[2024-07-12] MEDS: NOVOLOG FLEXPEN-LOW RESISTANCE 2 UNITS SC ×2 (08:30→13:10)
[2024-07-12] MEDS: PLAVIX 75 MG PO (08:30)
[2024-07-12] MEDS: SINGULAIR 10 MG PO (08:30)
[2024-07-12] MEDS: CALAN EXTENDED RELEASE 240 MG PO (08:30)
[2024-07-12] MEDS: DELTASONE 40 MG PO (08:30)
[2024-07-12] MEDS: GLUCOPHAGE XR EXTENDED RELEASE 1000 MG PO ×2 (08:30→17:35)
[2024-07-12] MEDS: ALDACTONE 25 MG PO (08:31)
[2024-07-12] MEDS: LASIX 60 MG PO ×2 (08:31→20:01)
[2024-07-12] MEDS: DESENEX/MITRAZOL/ZEASORB 1 APPLIC TOPICAL ×2 (08:31→19:59)
[2024-07-12] MEDS: LAC HYDRIN, AM LACTIN LOTION 1 APPLIC TOPICAL ×2 (08:31→20:01)
[2024-07-12] MEDS: LANOXIN 125 MCG PO (08:32)
[2024-07-12] MEDS: TOPROL XL 25 MG PO (08:32)
[2024-07-12] MEDS: PROTONIX 40 MG PO (08:32)
[2024-07-12 08:45] LABS: Hemoglobin 9.1 g/dL (12.0-16.0); Mean Corp Hgb Conc. 30.3 g/dL (33.0-37.0); Mean Corpuscular Volume 82.4 fL (81.0-99.0); Mean Platelet Volume 9.9 fL (7.4-10.4); Platelet Count 242 10^3/uL (130-400); Red Blood Cell Count 3.64 10^6/uL (4.20-5.40); Red Cell Dist. Width 16.5 % (11.5-14.5); White Blood Cell Count 6.2 10^3/uL (4.8-10.8)
--- NOTE | 2024-07-12 08:58 | WOUNDNOTE ---
[facility] RN note: Patient admitted with TIA
See H&P for complete history.
PMH: Hypertension, Diabetes type 2, Chronic lymphedema, CHF, Acute hypoxic respiratory insufficiency, Benign hypertension, Morbid obesity, Chronic kidney disease stage 3, Paroxysmal atrial fibrillation, Hypothyroidism, bilateral heel wound
debridement, left heel osteomyelitis
Wound Location and type/assessment: Patient admitted with bilateral heel ulcerations POA. Patient follows with Ramakrishna Jara. Per chart review, both heels were debrided on 01/26. The left heel was treated for osteomyelitis. The left heel appears
to be a healing stage 4 PI. Patient reports increased drainage of the heel over the past few days. The periwound is macerated. The right heel is covered with yellow slough. Per patient, she has been using Santyl to right heel as ordered by Podiatry.
Buttock and sacral creased with MASD vs stage 2 PI. Patient reports wearing Pur wick at night with brief. Patient transferring to [facility] with staff assistance and encouragement.
Appetite: Good
Pressure redistribution devices in place: Static Air overlay added to bed during assessment, heels off-loaded with air cushion under calves. Turning schedule. Fiber filled boots ordered.
Plan: Wound care provided as ordered. Calazime can be used for open areas on buttocks/sacrum. Patient would like to see a hospital security officer while she is here as she is missing a scheduled appointment due to hospitalization. Hospitalist notified of
request. Patient declining compression at this time. Will confirm orders with hospitalist and update nurse. Updated care plan and will follow as needed.
[2024-07-12 09:12] LABS: ALT (SGPT) < 10 U/L (0-35); AST (SGOT) 14 U/L (14-36); Albumin 3.2 g/dl (3.5-5.0); Alkaline Phosphatase 71 U/L (38-126); Blood Urea Nitrogen 30 mg/dl (7-17); Calcium 9.2 mg/dl (8.4-10.2); Carbon Dioxide 33 mmol/L (22-30); Chloride 102 mmol/L (98-107); Estimated Creatinine Clearance 67 ml/min; Glucose 187 mg/dl (70-99); Sodium 141 mmol/L (135-145); Total Bilirubin 0.4 mg/dl (0.2-1.3); Total Protein 6.5 g/dl (6.3-8.2); eGFR > 60.00
--- NOTE | 2024-07-12 09:25 | W.PN.HOSP.TC ---
Today's Communication/Plan
-
.
Assessment / Plan
Assessment / Plan
1. TIA/CVA
- 10 - 20 minutes of slurred speech and facial droop, BRINE TANK TENDER, now resolved.
- Hx: No prior CVA. s/p watchman fo A/fib. On aspirin/statin.
- CT (07/10): No acute intracranial abnormalities.
- MRI (07/11): No evidence of acute intracranial abnormalities. Possible mastoiditis.
- EEG (07/11): neg
- Continue aspirin/statin for now
- Appreciate Neuro Recommendations:
Would add clopidogrel to the patient's usual aspirin due to the patient's high risk for vascular causes of stroke, 21 days then discontinue
Goal of normotension
Goal of normoglycemia
Replace gabapentin with alternative medication to reduce the patient's risk of obesity secondary to medication exposure, change to Pregabalin 50 mg at bedtime
Patient is also be considered for replacement of sertraline with an alternative SSRI not associated with weight gain
- Fasting Lipid Panel unremarkable.
- No AC due to watchman.
- No carotid bruits on examination.
2. L Carotid Artery Stenosis
- >70% stenosis
- Vascular consult
3. Hypoxia -
- Combined restrictive/obstructive lung disease, morbid obesity, CHF. No signs of acute pulmonary infection or COPD exacerbation. Volume status at baseline
- Back to baseline today; 3L @ 95-99%
- continue home montelukast, ics/laba, albuterol and diuretics; standing Advair
- Appreciate Pulmonary Recommendations
4. Stage 2 Pressure Wound of the Left Heel -
- Chronic pressure ulcer in left heel. More drainage at this time.
- Wound care consult
- Podiatry Consult
- May need repeat debridement
4. Stage 2 Pressure Wound of the Right Heel
- Chronic pressure ulcer in left heel.
- Wound Care
5. Tophaceous Gout
- Started on Prednisone 40 mg
- Appreciate ID; no signs of infection
6. AFIB
- continue digoxin
- metoprolol
7. CHF
- continue lasix 60 bid, 40 noon
- fluid restriction and daily weight
- continue spironolactone, verapamil
DVT PPX lovenox sq
Code Status - Full Code
Anticipated Discharge: Today
Subjective/Interval History
-
Date of Service: July 12, 2024
Patient seen and examined resting up in the bed. Patient states that she is feeling much better this morning from a respiratory standpoint. Cleared up with the patient, patient actually does use home oxygen at home and has been doing so for
approximately 2 weeks now. Patient states that she was originally started on 2 L of oxygen, and then recently increased to 3 L of oxygen. Patient denies any new neurological complaints overnight. Patient also complains of burning with urination
that is chronic, and has resulted in multiple negative urinalyses and is requesting urology consult.
Objective Data
-
Labs:
Laboratory Results
07/12/24 07/12/24
05:06 08:20
WBC 6.2
Hgb 9.1 L
Hct 30.0 L
Plt Count 242
HCO3 29.2 H
Sodium 141
Potassium 4.0
Chloride 102
Carbon Dioxide 33 H
BUN 30 H
Creatinine 0.9
Glucose 187 H
Calcium 9.2
Total Bilirubin 0.4
AST 14
ALT < 10
Alkaline Phosphatase 71
Vital Signs:
Vital Signs
Temp Pulse Resp BP Pulse Ox
97.9 F 85 16 130/67 99
07/12/24 07:23 07/12/24 08:00 07/12/24 08:00 07/12/24 07:23 07/12/24 09:17
I&O
02/11/2707/12/24 07/13/24
06:59 06:59 06:59
Intake Total 120 / 120 720 / 720
Balance 120 / 120 720 / 720
Review of Systems
-
History Source: Patient
Constitutional: Reports No Symptoms
Respiratory: Reports Trouble Breathing (improved, oxygen back to baseline)
Cardiac: Reports No Symptoms
Abdomen/GI: Reports No Symptoms
Musculoskeletal: Reports No Symptoms
Neuro: Reports No Symptoms
Physical Exam
-
General: No Apparent Distress, Comfortable and Conversant
HEENT: Normocephalic and Atraumatic
Respiratory: Non Labored Respirations and Other (currently on 3L NC); Negative Wheezes, Rales or Rhonchi
Cardiac: Irregular Rhythm; Negative Murmur, Rub or Gallop
GI: Soft and Nontender
Musculoskeletal: No Clubbing, No Cyanosis, Edema, Right Lower Extrem and Edema, Left Lower Extrem
Skin: Warm and Dry
Neuro: Awake, Alert and Oriented
Psych: Calm
Data Reviewed
-
Ultrasound: Report Reviewed by me and Discussed with Patient
Labs: Labs Reviewed by me and Discussed with Patient
--- NOTE | 2024-07-12 09:42 | CON.VAS ---
Addendum entered and electronically signed by Jone Fitzpatrick III, MD 07/12/24 10:59:
This patient was seen and examined with DB Duenas. I agree with the history and physical exam as well as the assessment and plan. I have the following additions:
Patient known to [facility] from prior endovascular interventions for bilateral heel ulcers (lymphedema and PAD)
73-year-old
Multiple medical comorbidities
Asked to see patient today for carotid stenosis
Patient noted to have left-sided facial droop (noted by daughter) and dysarthria (subjectively mispronouncing words).
Resolved prior to arrival at [place]
MRI negative for acute infarct
She is right-hand dominant
Currently she is largely nonambulatory due to her obesity, lower extremity lymphedema and bilateral heel ulcers
Carotid duplex demonstrates greater than 70% stenosis on the right and a moderate degree of stenosis on the left.
She has not yet had cross-sectional imaging
On physical exam she is in no acute distress
Nonlabored breathing
Obese
Grossly nonfocal neuroexam
Lower extremity lymphedema bilaterally
Bilateral superficial heel ulcers which appear clean and dry
1.) obtain CT angiogram of the head and neck to better characterize her carotid disease
2.) continue local wound care to the heels and pressure offloading at all times with Prevalon boots bilaterally. She will need outpatient follow-up with Dr. Joy regarding her peripheral arterial disease and slowly healing heel ulcers
3.) In January 2024 she was noted to have a large nearly 12 cm hypervascular soft tissue mass in the left groin and smaller mass in the right groin. She reports that she was supposed to have a PET scan performed today. Over the last 6 months I do
not see that this has been addressed and diagnosis is still uncertain. Would recommend establishing a clear plan for this while inpatient.
Signed:
Jone Fitzpatrick III, MD
[facility]
[phone] ([phone])
Original Note:
Consultation
Consultation Request
Performing Provider: Nanette
Reason for Consultation: Carotid stenosis
Medical History
-
Chief Complaint: 20 minutes of facial droop and slurred speech
History of Present Illness:
73-year-old female with past medical history A-fib status post Watchman, CHF, chronic lymphedema, COPD, diabetes, CAD, RI with cardiac stents, pulmonary artery hypertension, seizures, PAD, chronic heel wounds, Craniotomy for meningioma in 2022.
Patient presented to the ER yesterday for a 20-minute episode of left facial droop and slurred speech witnessed by patient's daughter. Completely resolved on arrival to the ER.
CT head negative. MRI brain negative for acute or subacute stroke.
Carotid ultrasound impression: Heavily calcified plaque within the right carotid bulb, velocity measurements suggestive of greater than 70% stenosis as per modified Society of Radiologists in Ultrasound consensus criteria. Minimal left carotid bulb
plaque, measurements suggestive of 50-69% stenosis.
Vascular consult for above finding. Patient known to vascular service as we follow her for PAD. Last seen in our office in February 2024 for bilateral heel wounds. Patient has not followed up since.
Patient seen at bedside this a.m. with Dr. Fitzpatrick. Patient is right-handed. Patient neurologically intact.
Bilateral heel wound images below.
Right heel
Left heel
Past Medical History
Past Medical History: Other (Arrhythmia (Paroxysmal atrial fibrillation status post Watchman procedure), CAD (CAD status post RI, PCI x 2), CHF (Congestive heart failure), Hypercholesterolemia, NIDDM and Other (Chronic lymphedema))
Past Surgical History: Other (Brain (Craniotomy for meningioma), Urological (Gallbladder reconstruction) and Other (Angioplasty to left vein of leg))
Social History
Tobacco: Non-Smoker
Drug: None
Personal: Single
Living: With Family
Employment: Retired
Family History
Family History: Reviewed & Not Pertinent
Allergies / Home Medications
Allergy/AdvReac Type Severity Reaction Status Date / Time
cat dander Allergy ASTHMA/SOB Verified 07/10/24 22:16
levofloxacin Allergy Hives Verified 07/10/24 22:16
[From Levaquin Leva-Carlos]
Penicillins Allergy Shortness Verified 07/10/24 22:16
of Breath
piperacillin Allergy Anaphylaxis, Verified 07/10/24 22:16
acute
hypoxemic
resp f,
hypotensitching
01/25/24
Sulfa (Sulfonamide Allergy Hives Verified 07/10/24 22:16
Antibiotics)
vancomycin [Vancomycin] Allergy Rash/red Verified 07/10/24 22:16
tino
syndrome
�Medication �Instructions �Recorded �Confirmed �Type
albuterol sulfate 90 mcg/actuation 2 puff inhalation R Q4HPRN PRN 09/27/19 06/17/24 History
aerosol inhaler sob/wheezing
atorvastatin 40 mg tablet 40 mg PO HS High cholesterol 04/23/21 06/17/24 History
fenofibrate nanocrystallized 48 mg 48 mg PO HS High cholesterol 07/13/21 06/17/24 History
tablet
montelukast 10 mg tablet 10 mg PO DAILY Allergies 11/30/21 06/17/24 History
pantoprazole 40 mg tablet,delayed 40 mg PO DAILY Gastrointestinal 11/30/21 06/17/24 History
release issue
sertraline 50 mg tablet 50 mg PO HS Depression 11/30/21 06/17/24 History
digoxin 125 mcg (0.125 mg) tablet 125 mcg PO DAILY Heart 08/22/23 06/17/24 History
Disease/Condition
fluticasone 250 mcg-salmeterol 50 1 inh inhalation R DAILYPRN PRN 08/22/23 06/17/24 History
mcg/dose blistr powdr for sob/wheezing
inhalation (Advair Diskus)
levothyroxine 125 mcg tablet 125 mcg PO DAILY Thyroid 08/22/23 06/17/24 History
(Synthroid)
spironolactone 25 mg tablet 25 mg PO DAILY Heart Failure 08/22/23 06/17/24 History
verapamil 240 mg 24 hr 240 mg PO DAILY Blood Pressure 11/04/23 06/17/24 History
capsule,extended release
metoprolol succinate 25 mg 25 mg PO DAILY #30 tabs 11/06/23 06/17/24 Rx
tablet,extended release 24 hr
gabapentin 300 mg capsule 300 mg PO BID sleep/pain #10 caps 12/14/23 06/17/24 Rx
acetaminophen 325 mg tablet 650 mg PO Q6HPRN PRN mild 06/17/24 06/17/24 History
(Tylenol) pain/fever
aspirin 81 mg tablet,delayed 81 mg PO DAILY Blood Clot 06/17/24 06/17/24 History
release Prevention/Tx
furosemide 80 mg tablet 40 mg PO NOON Fluid 06/17/24 06/17/24 History
Retention/Swelling
furosemide 80 mg tablet 60 mg PO BID Fluid 06/17/24 06/17/24 History
Retention/Swelling
insulin glargine 100 unit/mL 3 unit SC HS DM 06/17/24 06/17/24 History
subcutaneous solution (Lantus
U-100 Insulin)
metformin 500 mg tablet,extended 1,000 mg PO BID Diabetes 06/17/24 06/17/24 History
release 24 hr
therapeutic multivitamin 1 tab PO DAILY Supplement 06/17/24 06/17/24 History
vitamin A and D 1 applic topical DAILYPRN PRN 06/17/24 06/17/24 History
diaper rash
ammonium lactate 12 % lotion 1 applic topical BID #400 grams 06/21/24 Rx
collagenase clostridium histo. 250 1 applic topical DAILY #90 grams 06/21/24 Rx
unit/gram topical ointment (Santyl)
estradiol 0.01% (0.1 mg/gram) 1 appful vaginal MoWeFr@2200 #42.5 06/21/24 Rx
vaginal cream grams
linezolid 600 mg tablet 600 mg PO BID 7 days #14 tabs 06/21/24 Rx
miconazole nitrate 2 % topical 1 applic topical BID #85 grams 06/21/24 Rx
powder (Miconazorb AF)
Review of Systems
-
History Source: Patient
All other systems: Negative unless noted
Constitutional: Reports No Symptoms
EENT: Reports No Symptoms
Respiratory: Reports No Symptoms
Vascular: Denies Leg Pain / Claudication
Abdomen/GI: Reports No Symptoms
: Reports No Symptoms
Musculoskeletal: Reports Edema
Skin: Reports Other (Bilateral heel wounds)
Neurological: Reports Other (Slurred speech-resolved)
Endocrine: Reports No Symptoms
Physical Exam
Vital Signs
Temp Pulse Resp BP Pulse Ox
97.9 F 85 16 130/67 99
07/12/24 07:23 07/12/24 08:00 07/12/24 08:00 07/12/24 07:23 07/12/24 09:17
Lab Results
07/12/24 08:20
07/12/24 08:20
Troponin I < 0.012 ng/ml 07/10/24 22:57
Physical Exam
General: No Apparent Distress
HEENT: Normocephalic and Atraumatic
Respiratory: Non Labored Respirations
Cardiac: Negative JVD
GI: Non Tender
Musculoskeletal: No Clubbing, No Cyanosis and Edema (+3 bilateral lower extremities)
Skin: Warm and Other (See wound images above)
Neuro: Awake, Alert, Oriented and Nonfocal/Grossly Intact
Psych: Calm
Assessment / Plan
-
73-year-old female here with 20-minute episode of slurred speech and left facial droop
Carotid ultrasound suggest 70% stenosis of the right ICA
Plan:
-CTA head and neck
-Will follow-up the patient after scan complete
-Continue local wound care
Data Reviewed
-
Ultrasound: Discussed with Patient
Labs: Labs Reviewed by me
--- NOTE | 2024-07-12 10:16 | W.PN.PUL3 ---
Today's Communication / Plan
-
Patient feels at baseline. She already has oxygen therapy at home
Incentive spirometry, out of bed to chair as able
Head of bed elevated
Follow-up chest x-ray in 6 weeks with pulmonary follow-up
Information left in chart
Disposition efforts
Assessment
-
73-year-old female with complex medical history including morbid obesity, restrictive lung disease, diabetes, history of recurrent heart failure, atrial fibrillation, asthma who presents with questionable TIA symptoms resolved after 20 minutes.
Patient noted to be hypoxic requiring 5 L. We are asked to comment on primary process
Status post TIA, 20 minutes of symptoms
Aphasia, facial droop, resolved
Recent lower extremity cellulitis now with right finger cellulitis
Acute hypoxic respiratory insufficiency requiring 5 L of oxygen
Dilated hypokinetic right ventricle per prior echo
PA pressure 53
Right bundle branch block
Moderate to severe MR per echo November 2023
Recent history of left heel osteomyelitis status post 6 weeks of antibiotics
Conditions present prior to admission
Hypertension/hyperlipidemia
Coronary disease with history of stent
Insulin-dependent diabetes
History of meningioma with craniotomy in the past
History of asthma, not on maintenance therapy
Morbid obesity, high suspicion for sleep apnea
Negative PSG, desaturation arnel 84%
Chronic atrial fibrillation on Xarelto
Chronic lymphedema
Restrictive lung disease, FVC 72%, DLCO 30%
Morbid obesity, sedentary
Multiple antibiotic allergies
Plan/recommendations
At this time, patient is without complaints. She is on oxygen.
She feels she is at her baseline.
Chest x-ray 07/11/2024 with mild basilar atelectasis
ABG without acute findings
Chest x-ray from 06/17/24 suggests mild interstitial changes. CT chest at that time, Negative pulmonary embolism. There is a large pulmonary artery. There is no obvious interstitial changes
EKG 07/10/24 reveals right bundle branch with atrial fibrillation. This is chronic
Echocardiogram suggests RV dysfunction, dilated RV and pulmonary hypertension along with mitral regurgitation
Moving forward
Patient with extremely complex medical history
Salient features include severe gas exchange defect at baseline, RV dysfunction with pulmonary hypertension, valvular disease, morbid obesity
Patient states that she is on oxygen at home for the last month
She does have a history of hypoxia with sleep
There is no clear evidence of pneumonia
Recent CT chest from 06/17/24 without obvious pulmonary process
would follow-up chest x-ray in 4 to 6 weeks
Head of bed elevated, aspiration precautions
Patient would likely multifactorial causes for shortness of breath and hypoxia.
Agree with efforts for diuresis as patient feels her weight has increased
There is no wheezing on exam but agree with continuing Advair.
Prednisone for gout flare of right index finger
DVT prophylaxis: Lovenox
Reviewed with patient
Patient had appointment today with pulmonary. This will need to be rescheduled
Information left in chart
Disposition efforts
Subjective Data
-
Date of Service:
Date of Service: July 12, 2024
Subjective:
Patient is feeling well. She feels she is at her baseline. She has been on oxygen therapy now at home, denies chest pain. She has a mild dry cough, no hemoptysis, denies nausea.
Objective Data
Data Reviewed
Vital Signs / I&O / Oxygen:
Vital Signs
Temp Pulse Resp BP Pulse Ox
97.9 F 85 16 130/67 99
07/12/24 07:23 07/12/24 08:00 07/12/24 08:00 07/12/24 07:23 07/12/24 09:17
Intake and Output
07/11/24 07/12/24 07/13/24
06:59 06:59 06:59
Intake Total 120 / 120 720 / 720
Balance 120 / 120 720 / 720
SaO2 99
Nasal Cannula flow liters per 3
minute
Physical Exam
General: Comfortable
HEENT: Normocephalic, Anicteric and Other (Large neck)
Cardiovascular: S1-S2, Irregular Rhythm, Murmur (2/6 systolic murmur) and Peripheral Edema (Chronic venous stasis changes, chronic edema)
Respiratory: Wheeze (n), Crackles (few), Rhonchi (n), Non-Labored Respirations and Stridor (n)
GI: Soft, Non Distended (Obese) and Non Tender
Neurology: Awake, Alert and No Motor Deficits (Generally weak)
Skin: Cyanosis (n), Jaundice (n) and Rash (n)
Labs/Micro/Reports
Lab Data
07/12/24 08:20
07/12/24 08:20
Laboratory Results
07/12/24
05:06
pH 7.46 H
pCO2 41 H
pO2 96
HCO3 29.2 H
O2 Delivery Level
Microbiology
07/11/24 05:02 Nose MRSA Screen - Final
No Methicillin Resistant Staphylococcus aureus isolated.
--- NOTE | 2024-07-12 11:01 | W.PN.ID1 ---
Date of Service
Date of Service: July 12, 2024
Today's Communication
Continue prednisone.
Assessment / Plan
# Tophaceous gout flare of Right index finger
- serum uric acid 11.5
- Continue prednisone 40mg po daily (d2)
# Chronic BLE heel wounds
- No infection
# TIA
#Carotid stenosis
#Conditions prior to admission
Diabetes mellitus type 2
Neuropathy
Hypertension
CAD status post stents
Carotid artery disease
paroxysmal atrial fibrillation
Watchman procedure
CHF
PAD failed attempt left lower extremity angioplasty
Class III obesity BMI 46.5
SAMIA
Pulmonary HTN
Chronic lymphedema
Asthma
Left groin mass
Insomnia
Rosacea
Nephrolithiasis
Cholecystectomy
Bladder repair
Chronic bilateral heel wounds
Left heel osteomyelitis I+D 01/2024 s/p 6wks meropenem and linezolid
Left shoulder replacement
Chief Complaint
-: Other (gout)
Subjective / Review of Systems
Right pointer finger stable, still painful.
Vital Signs / Physical Exam
Vital Signs
Vital Signs
Temp Pulse Resp BP Pulse Ox
97.9 F 85 16 130/67 99
07/12/24 07:23 07/12/24 08:00 07/12/24 08:00 07/12/24 07:23 07/12/24 09:17
Physical Exam
Constitutional: No Acute Distress, Comfortable and Obese
Eyes: No Conjunctival Hemorrhage and Sclera Anicteric
Cardiovascular: Irregular Rate and S1/S2
Pulmonary: Clear
Gastrointestinal: Soft, Non Tender, Non Distended and Normal Bowel Sounds
Extremities: Edema (BLE lymphedema)
Musculoskeletal: Other (Right pointer finger PIPJ + induration, erythema, distal finger pad with 2 white flat firm lesions)
Wound: Other (Reviewed wound photos: left heel wound clean without surrounding erythema, no signs of infection)
Neurological: AO x 3
Objective Data
Lab Data
Lab Results
07/12/24 08:20
07/12/24 08:20
PT 14.8 Sec (11.4-14.6) H 07/10/24 22:57
INR 1.10 07/10/24 22:57
APTT 26.7 Sec (23.4-35.0) 07/10/24 22:57
Estimated Creat Clear 67 ml/min 07/12/24 08:20
Total Bilirubin 0.4 mg/dl (0.2-1.3) 07/12/24 08:20
AST 14 U/L (14-36) 07/12/24 08:20
ALT < 10 U/L (0-35) 07/12/24 08:20
Alkaline Phosphatase 71 U/L (38-126) 07/12/24 08:20
Most recent labs reviewed.
Micro Results:
07/11/24 05:02 MRSA Screen - Final
Nose No Methicillin Resistant Staphylococcus aureus isolated.
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 No radiographic evidence for aggressive osseous destruction, soft
tissue gas, or radiopaque foreign body.
07/11/24 Brain MRI: Status post right frontal craniotomy with adjacent encephalomalacia, stable from recent CT examinations. No evidence of acute intracranial abnormality. No evidence for a focal area of acute to subacute infarction.
[2024-07-12 11:09] VITALS: BP 115/57
[2024-07-12] MEDS: LASIX 40 MG PO (11:34)
[2024-07-12 12:06] LABS: Glucose - Point of Care 207 mg/dl (70-99)
--- NOTE | 2024-07-12 13:49 | CON.MD ---
Consultation - Medical
-
CC: Podiatry consulted for bilateral heel wounds - increased drainage fromt eh left side.
HPI: Patient is awake at bedside resting comfortably. she states that she treats regularly with Dr. Galarza (podiatry) as an outpatient for heel chronic heel wounds. They have been slowly healing and she has been under the care of VNS who
are applying santyl ointment to the right heel and collagen to the left heel.
Past Medical History
atrial fib
stage 3 CKD
hypothyroidism
H pylori infection
type 2 DM
cellulitis
kidney stones
adrenal mass
lymphedema
allergic asthma
HLD
CAD
GERD
CHF
GERD
alcohl use
sleep apnea
pVD
pulmonary artery HTn
Past Surgical History:
left should replacement
cholecystectomy
kidney stone removed
tonsillectomy
bladder repair
cardiac ablation
cardioversions
skin CA removed
heel debridement
watchman procedure
Social History
Tobacco: Former Smoker
Alcohol: Former
Drug: None
Living: With Family
Family History
Family History: Not pertinent
Allergies
Allergy/AdvReac Type Severity Reaction Status Date / Time
piperacillin Allergy Severe Anaphylaxis, Verified 02/04/24 17:56
acute
hypoxemic
resp f,
hypotensitching
01/25/24
cat dander Allergy ASTHMA/SOB Verified 02/04/24 17:56
levofloxacin Allergy Hives Verified 02/04/24 17:56
[From Levaquin Leva-Carlos]
Penicillins Allergy Shortness Verified 02/04/24 17:56
of Breath
Sulfa (Sulfonamide Allergy Hives Verified 02/04/24 17:56
Antibiotics)
vancomycin [Vancomycin] Allergy Rash/red Verified 02/04/24 17:56
tino
syndrome
Home Medications
albuterol sulfate 90 mcg/actuation aerosol inhaler 2 puff inhalation R Q4HPRN PRN sob/wheezing 09/27/19
atorvastatin 40 mg tablet 40 mg PO HS High cholesterol 04/23/21
fenofibrate nanocrystallized 48 mg tablet 48 mg PO HS High cholesterol 07/13/21
montelukast 10 mg tablet 10 mg PO DAILY Allergies 11/30/21
pantoprazole 40 mg tablet,delayed release 40 mg PO DAILY Gastrointestinal issue 11/30/21
sertraline 50 mg tablet 50 mg PO HS Depression 11/30/21
digoxin 125 mcg (0.125 mg) tablet 125 mcg PO DAILY Heart Disease/Condition 08/22/23
fluticasone 250 mcg-salmeterol 50 mcg/dose blistr powdr for inhalation (Advair Diskus) 1 inh inhalation R DAILYPRN PRN sob/wheezing 08/22/23
levothyroxine 125 mcg tablet (Synthroid) 125 mcg PO DAILY Thyroid 08/22/23
spironolactone 25 mg tablet 25 mg PO DAILY Heart Failure 08/22/23
verapamil 240 mg 24 hr capsule,extended release 240 mg PO DAILY Blood Pressure 11/04/23
metoprolol succinate 25 mg tablet,extended release 24 hr 25 mg PO DAILY #30 tabs 11/06/23
gabapentin 300 mg capsule 300 mg PO BID sleep/pain #10 caps 12/14/23
acetaminophen 325 mg tablet (Tylenol) 650 mg PO Q6HPRN PRN mild pain/fever 06/17/24
aspirin 81 mg tablet,delayed release 81 mg PO DAILY 06/17/24
furosemide 80 mg tablet 40 mg PO NOON 06/17/24
furosemide 80 mg tablet 60 mg PO BID 06/17/24
insulin glargine 100 unit/mL subcutaneous solution (Lantus U-100 Insulin) 3 unit SC HS DM 06/17/24
metformin 500 mg tablet,extended release 24 hr 1,000 mg PO BID 06/17/24
therapeutic multivitamin 1 tab PO DAILY 06/17/24
vitamin A and D 1 applic topical DAILYPRN PRN diaper rash 06/17/24
Physical Exam:
Pulses palpable, foot is well perfused, loss of pedal hair, thickened toenails. The right heel has a wound measuring 1 cm x 0.5 cm with a fibrogranular base, no probing, undermining, tunneling or sinus tract formation. No erythema or sings of
infection The left heel wound is fibrogranualr and measures 2 cm x 3 cm, with no undermining, probing, tunneling or sinus tract formation, moderate serous drainage. No erythema or sings of infection.
Assessment:
Stable chronic heel ulcers - stage 2
Type 2 Diabetes Mellitus
Plan:
Recommend santyl/DSD to right heel and adaptec/DSD to left heel. Offload heels at all times in bed. No surgical intervention required. No signs of infection. Follow up [facility] Dr. Galarza as an outpatient.
[2024-07-12 16:13] VITALS: BP 105/60
[2024-07-12 17:13] LABS: Glucose - Point of Care 340 mg/dl (70-99)
[2024-07-12] MEDS: LOVENOX 40 MG SC (17:35)
[2024-07-12] MEDS: NOVOLOG FLEXPEN-LOW RESISTANCE 4 UNITS SC (17:36)
[2024-07-12 19:48] VITALS: BP 135/62
[2024-07-12] MEDS: LYRICA 50 MG PO (21:16)
[2024-07-12] MEDS: ZOLOFT 50 MG PO (21:17)
[2024-07-12] MEDS: LIPITOR 40 MG PO (21:17)
[2024-07-12] MEDS: TRICOR 48 MG PO (21:17)
[2024-07-12 21:50] LABS: Glucose - Point of Care 323 mg/dl (70-99)
[2024-07-12 23:07] VITALS: BP 101/59
[2024-07-13 02:53] VITALS: BP 131/64
[2024-07-13] MEDS: SYNTHROID 125 MCG PO (05:06)
[2024-07-13 06:00] VITALS: BMI 47.5
[2024-07-13 07:17] LABS: Hematocrit 28.4 % (37.0-47.0); Hemoglobin 8.8 g/dL (12.0-16.0); Mean Corpuscular Hgb 25.4 pg (27.0-31.0); Mean Corpuscular Volume 82.1 fL (81.0-99.0); Mean Platelet Volume 9.9 fL (7.4-10.4); Platelet Count 268 10^3/uL (130-400); Red Blood Cell Count 3.46 10^6/uL (4.20-5.40); Red Cell Dist. Width 16.9 % (11.5-14.5); White Blood Cell Count 7.4 10^3/uL (4.8-10.8)
[2024-07-13 07:31] LABS: Blood Urea Nitrogen 34 mg/dl (7-17); Carbon Dioxide 34 mmol/L (22-30); Chloride 100 mmol/L (98-107); Estimated Creatinine Clearance 68 ml/min; Glucose 179 mg/dl (70-99); Potassium 3.9 mmol/L (3.5-5.1); Sodium 139 mmol/L (135-145); eGFR > 60.00
[2024-07-13 07:41] LABS: Glucose - Point of Care 178 mg/dl (70-99)
[2024-07-13 08:01] VITALS: BP 121/62
[2024-07-13] MEDS: ADVAIR HFA 115/21 MCG INHALER 2 PUFF INH ×2 (08:37→20:23)
--- NOTE | 2024-07-13 09:08 | W.PN.HOSP.TC ---
Today's Communication/Plan
-
.
Assessment / Plan
Assessment / Plan
1. TIA/CVA (resolved)
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
- Hx: No prior CVA. s/p watchman fo A/fib. On aspirin/statin.
- CT (07/10): No acute intracranial abnormalities.
- MRI (07/11): No evidence of acute intracranial abnormalities. Possible mastoiditis.
- EEG (07/11): neg
- Continue aspirin/statin for now
- Appreciate Neuro Recommendations:
Would add clopidogrel to the patient's usual aspirin due to the patient's high risk for vascular causes of stroke, 21 days then discontinue
Goal of normotension
Goal of normoglycemia
Replace gabapentin with alternative medication to reduce the patient's risk of obesity secondary to medication exposure, change to Pregabalin 50 mg at bedtime
Patient is also be considered for replacement of sertraline with an alternative SSRI not associated with weight gain
- Fasting Lipid Panel unremarkable.
- No AC due to watchman.
- No carotid bruits on examination.
2. L Carotid Artery Stenosis
- >70% stenosis
- Appreciate Vascular Reccs:
- CT Angiogram Head (07/12): Greater than 70% distal right common carotid artery stenosis close to 90%. Greater than 70% proximal right internal carotid artery stenosis, closer to 90%. Less than 50% proximal left internal carotid artery stenosis.
- Large nearly 12 cm hypervascular soft tissue mass in the left groin and smaller mass in the right groin. Elucidate a plan prior to d/c.
- CT Abd/Pelv (07/13):
3. Hypoxia -
- Combined restrictive/obstructive lung disease, morbid obesity, CHF. No signs of acute pulmonary infection or COPD exacerbation. Volume status at baseline
- Back to baseline today; 2L in 90s
- continue home montelukast, ics/laba, albuterol and diuretics; standing Advair
- Appreciate Pulmonary Recommendations
4. Stage 2 Pressure Wound of the Left Heel -
- Chronic pressure ulcer in left heel. More drainage at this time.
- Wound care consult
- Podiatry Consult
- May need repeat debridement
4. Stage 2 Pressure Wound of the Right Heel
- Chronic pressure ulcer in left heel.
- Wound Care
5. Tophaceous Gout
- Started on Prednisone 40 mg
- Appreciate ID; no signs of infection
6. AFIB
- continue digoxin
- metoprolol
7. CHF
- continue lasix 60 bid, 40 noon
- fluid restriction and daily weight
- continue spironolactone, verapamil
DVT PPX lovenox sq
Code Status - Full Code
Dispo Planning: Home with VN and family supports
Anticipated Discharge: Within 24 hours
Subjective/Interval History
-
Date of Service: July 13, 2024
Patient seen and examined while resting comfortably in bed; waiting to go down to CT Scan. Patient has no acute complaints this morning, states that her breathing is doing better than yesterday and much better than when she came in. States 'I don't
know why I need oxygen, I feel great.' Notes she wasn't able to sleep well last night, attributes it to a chatty roommate.
Objective Data
-
Labs:
Laboratory Results
07/13/24
06:23
WBC 7.4
Hgb 8.8 L
Hct 28.4 L
Plt Count 268
Sodium 139
Potassium 3.9
Chloride 100
Carbon Dioxide 34 H
BUN 34 H
Creatinine 0.9
Glucose 179 H
Calcium 9.0
Vital Signs:
Vital Signs
Temp Pulse Resp BP Pulse Ox
97.9 F 70 16 121/62 93
07/13/24 08:01 07/13/24 08:39 07/13/24 08:39 07/13/24 08:01 07/13/24 08:39
I&O
07/12/24 07/13/24 07/14/24
06:59 06:59 06:59
Intake Total 720 / 720 1440 / 1440
Output Total 1999
Balance 720 / 720 -560 / -560
Review of Systems
-
History Source: Patient
Constitutional: Reports No Symptoms
Respiratory: Reports No Symptoms
Cardiac: Reports No Symptoms
Abdomen/GI: Reports No Symptoms
Musculoskeletal: Reports No Symptoms
Neuro: Reports No Symptoms
Physical Exam
-
General: No Apparent Distress, Comfortable and Conversant; Negative Respiratory Distress
HEENT: Normocephalic, Atraumatic, Moist Mucous Membranes and Oxygen (2L NC)
Respiratory: Clear to Auscultation; Negative Wheezes, Rales, Rhonchi or Crackles
Cardiac: S1/S2 and Irregular Rhythm
GI: Soft and Nontender
Musculoskeletal: No Clubbing, No Cyanosis, Edema, Right Lower Extrem and Edema, Left Lower Extrem
Skin: Warm
Neuro: Awake, Alert and Oriented
Psych: Calm
Data Reviewed
-
Labs: Labs Reviewed by me and Discussed with Patient
--- NOTE | 2024-07-13 09:54 | W.PN.UPDATE ---
Update Note
Progress Note Update
I saw and evaluated the patient. I reviewed the resident�s note and agree with findings and plan as documented in the resident�s note.
No new complaints.
Gen: Remains NAD, AAOx3, appears chronically ill.
Eyes: EOMI, PERRLA, no scleral icterus.
Neck: supple.
CV: Continues to remain irreg/irreg +S1/S2, no m/r/g.
Resp: Remains CTAB anteriorly, no rales, wheezes, or rhonchi.
Abd: +BS, soft, NT, ND
Skin: No rashes.
Neuro: CN 2-12 intact, non-focal.
Psych: Normal mood and affect.
MRI brain: Status post right frontal craniotomy with adjacent encephalomalacia, stable from recent CT examinations. No evidence of acute intracranial abnormality. No evidence for a focal area of acute to subacute infarction.
EEG: Unremarkable EEG for age
Carotid ultrasound:
1. Heavily calcified plaque within the right carotid bulb, velocity measurements suggestive of greater than 70% stenosis as per modified Society of Radiologists in Ultrasound consensus criteria (IAC carotid criteria white paper, 2020).
2. Minimal left carotid bulb plaque, measurements suggestive of 50-69% stenosis.
CXR: Bilateral atelectasis. Progressed.
CTA head/neck: Greater than 70% distal right common carotid artery stenosis close to 90%. Greater than 70% proximal right internal carotid artery stenosis, closer to 90%. Less than 50% proximal left internal carotid artery stenosis. Old right
frontal lobe infarct. Moderate atrophy. Mild periventricular small vessel ischemic disease.
TIA:
-had 10 - 20 minutes of slurred speech and facial droop now resolved. No prior CVA. s/p watchman fo afib. On aspirin/statin.
-acute CVA ruled out with MRI brain as above
-cont ASA/statin/Plavix as per neuro
-EEG unremarkable as above
-no AC due to watchman
-vascular following re:SIOBHAN
Chronic hypoxemic respiratory failure:
-Due to combined restrictive/obstructive lung disease, morbid obesity, chronic HFpEF. 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
-No signs of acute pulmonary infection or COPD exacerbation. Volume status at baseline.
-cont 5L NC O2
-Continue Singulair/Advair, PRN Albuterol.
Gout, R 2nd finger tophi:
-cont pulse Prednisone (total 3 days)
B/L groin masses:
-CT Pelvis pending
Other problems:
Chronic pressure ulcer in left heel: would care
Right finger nodules, likely tophi, ID saw in c/s
Permanent Afib: h/o Watchman, cont BB/dig/Verapamil
Chronic HFpEF: cont home lasix. Daily wts, I/Os, FR, cont BB Aldactone.
Morbid obesity due to excess calories
Family updated at bedside.
FULL/lovenox
Total time spent on today's encounter was 50 minutes which included time spent in counseling the patient/family regarding diagnosis and treatment plan as listed above, goals of care, and symptom management. Case was discussed with nursing staff,
specialists, and care coordinators/case management. All labs and imaging personally reviewed by me. Remainder the time spent in detailed review of previous records, lab data, imaging, and other medical provider documentation.
[2024-07-13] MEDS: NOVOLOG FLEXPEN-LOW RESISTANCE 178 UNITS SC (10:05)
[2024-07-13] MEDS: LASIX 60 MG PO ×2 (10:16→20:19)
[2024-07-13] MEDS: DELTASONE 40 MG PO (10:16)
[2024-07-13] MEDS: GLUCOPHAGE XR EXTENDED RELEASE 1000 MG PO ×2 (10:16→16:46)
[2024-07-13] MEDS: ASPIR LOW (ENTERIC COATED) 81 MG PO (10:16)
[2024-07-13] MEDS: ALDACTONE 25 MG PO (10:16)
[2024-07-13] MEDS: LANOXIN 125 MCG PO (10:17)
[2024-07-13] MEDS: PLAVIX 75 MG PO (10:17)
[2024-07-13] MEDS: CALAN EXTENDED RELEASE 240 MG PO (10:17)
[2024-07-13] MEDS: PROTONIX 40 MG PO (10:17)
[2024-07-13] MEDS: SINGULAIR 10 MG PO (10:17)
[2024-07-13] MEDS: DESENEX/MITRAZOL/ZEASORB 1 APPLIC TOPICAL ×2 (10:23→20:19)
[2024-07-13] MEDS: SANTYL OINTMENT 1 APPLIC TOPICAL ×2 (10:24→10:25)
[2024-07-13] MEDS: LAC HYDRIN, AM LACTIN LOTION 1 APPLIC TOPICAL ×2 (10:24→20:20)
[2024-07-13] MEDS: TOPROL XL 25 MG PO (10:25)
[2024-07-13 11:23] LABS: Glucose - Point of Care 193 mg/dl (70-99)
[2024-07-13 11:45] VITALS: BP 118/62
[2024-07-13] MEDS: NOVOLOG FLEXPEN-LOW RESISTANCE 1 UNITS SC (12:50)
[2024-07-13] MEDS: LASIX 40 MG PO (12:50)
[2024-07-13] MEDS: TYLENOL 650 MG PO (13:01)
--- NOTE | 2024-07-13 13:17 | CM ---
Addendum entered by Beatriz Grace 07/13/24 14:01:
[facility] [phone],
Original Note:
Patient declined physical therapy again today, plan is to home with son and [facility] visiting nurses, referral sent in [employer].
Plan; Home with son
[facility]
[phone]
--- NOTE | 2024-07-13 14:02 | W.PN.ID1 ---
Date of Service
Date of Service: July 13, 2024
Today's Communication
Continue gout treatment.
Assessment / Plan
# Tophaceous gout flare of Right index finger
- serum uric acid 11.5
- Continue prednisone 40mg po daily (d3)
# Chronic BLE heel wounds
- No infection
# TIA
#Carotid stenosis
#Conditions prior to admission
Diabetes mellitus type 2
Neuropathy
Hypertension
CAD status post stents
Carotid artery disease
paroxysmal atrial fibrillation
Watchman procedure
CHF
PAD failed attempt left lower extremity angioplasty
Class III obesity BMI 46.5
SAMIA
Pulmonary HTN
Chronic lymphedema
Asthma
Left groin mass
Insomnia
Rosacea
Nephrolithiasis
Cholecystectomy
Bladder repair
Chronic bilateral heel wounds
Left heel osteomyelitis I+D 01/2024 s/p 6wks meropenem and linezolid
Left shoulder replacement
Chief Complaint
-: Other (gout)
Subjective / Review of Systems
Finger still sore.
Vital Signs / Physical Exam
Vital Signs
Vital Signs
Temp Pulse Resp BP Pulse Ox
97.1 F 90 14 118/62 90
07/13/24 11:45 07/13/24 11:45 07/13/24 11:45 07/13/24 11:45 07/13/24 11:45
Physical Exam
Constitutional: No Acute Distress, Comfortable and Obese
Cardiovascular: Irregular Rate and S1/S2
Pulmonary: Clear
Gastrointestinal: Soft, Non Tender, Non Distended and Normal Bowel Sounds
Extremities: Edema (BLE lymphedema)
Musculoskeletal: Other (Right pointer finger PIPJ slight decrease in induration, +erythema, distal finger pad with 2 white flat firm lesions)
Wound: Other (Reviewed wound photos: left heel wound clean without surrounding erythema, no signs of infection)
Neurological: AO x 3
Objective Data
Lab Data
Lab Results
07/13/24 06:23
07/13/24 06:23
PT 14.8 Sec (11.4-14.6) H 07/10/24 22:57
INR 1.10 07/10/24 22:57
APTT 26.7 Sec (23.4-35.0) 07/10/24 22:57
Estimated Creat Clear 68 ml/min 07/13/24 06:23
Total Bilirubin 0.4 mg/dl (0.2-1.3) 07/12/24 08:20
AST 14 U/L (14-36) 07/12/24 08:20
ALT < 10 U/L (0-35) 07/12/24 08:20
Alkaline Phosphatase 71 U/L (38-126) 07/12/24 08:20
Most recent labs reviewed.
Micro Results:
07/11/24 05:02 MRSA Screen - Final
Nose No Methicillin Resistant Staphylococcus aureus isolated.
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 No radiographic evidence for aggressive osseous destruction, soft
tissue gas, or radiopaque foreign body.
07/11/24 Brain MRI: Status post right frontal craniotomy with adjacent encephalomalacia, stable from recent CT examinations. No evidence of acute intracranial abnormality. No evidence for a focal area of acute to subacute infarction.
--- NOTE | 2024-07-13 14:37 | CHAP ---
Ms. Clark greeted me with a smile. Emotional and spiritual support offered.
[2024-07-13 14:45] LABS: Glucose - Point of Care 256 mg/dl (70-99)
[2024-07-13 15:10] VITALS: BP 104/54
[2024-07-13 16:39] LABS: Glucose - Point of Care 284 mg/dl (70-99)
[2024-07-13] MEDS: NOVOLOG FLEXPEN-LOW RESISTANCE 3 UNITS SC (16:46)
[2024-07-13] MEDS: LOVENOX 40 MG SC (17:06)
[2024-07-13 19:30] VITALS: BP 126/71
[2024-07-13 21:18] LABS: Glucose - Point of Care 311 mg/dl (70-99)
[2024-07-13] MEDS: LYRICA 50 MG PO (21:23)
[2024-07-13] MEDS: TRICOR 48 MG PO (21:23)
[2024-07-13] MEDS: ZOLOFT 50 MG PO (21:23)
[2024-07-13] MEDS: LIPITOR 40 MG PO (21:23)
[2024-07-13 23:42] VITALS: BP 129/68
[2024-07-14 03:35] VITALS: BP 134/73
[2024-07-14] MEDS: SYNTHROID 125 MCG PO (05:06)
[2024-07-14 06:00] VITALS: BMI 44.7
[2024-07-14 07:25] LABS: Hematocrit 30.9 % (37.0-47.0); Hemoglobin 9.5 g/dL (12.0-16.0); Mean Corp Hgb Conc. 30.7 g/dL (33.0-37.0); Mean Corpuscular Hgb 25.4 pg (27.0-31.0); Mean Corpuscular Volume 82.6 fL (81.0-99.0); Platelet Count 307 10^3/uL (130-400); Red Blood Cell Count 3.74 10^6/uL (4.20-5.40); Red Cell Dist. Width 16.7 % (11.5-14.5); White Blood Cell Count 7.1 10^3/uL (4.8-10.8)
[2024-07-14 07:32] LABS: Glucose - Point of Care 173 mg/dl (70-99)
[2024-07-14 07:55] LABS: Blood Urea Nitrogen 29 mg/dl (7-17); Calcium 9.4 mg/dl (8.4-10.2); Carbon Dioxide 36 mmol/L (22-30); Chloride 98 mmol/L (98-107); Estimated Creatinine Clearance 59 ml/min; Glucose 172 mg/dl (70-99); Sodium 140 mmol/L (135-145); eGFR 58.75
[2024-07-14] MEDS: NOVOLOG FLEXPEN-LOW RESISTANCE 1 UNITS SC (07:55)
[2024-07-14] MEDS: ASPIR LOW (ENTERIC COATED) 81 MG PO (07:56)
[2024-07-14] MEDS: TOPROL XL 25 MG PO (07:56)
[2024-07-14] MEDS: LANOXIN 125 MCG PO (07:56)
[2024-07-14] MEDS: CALAN EXTENDED RELEASE 240 MG PO (07:56)
[2024-07-14] MEDS: GLUCOPHAGE XR EXTENDED RELEASE 1000 MG PO ×2 (07:56→17:11)
[2024-07-14] MEDS: DELTASONE 40 MG PO (07:56)
[2024-07-14] MEDS: PROTONIX 40 MG PO (07:56)
[2024-07-14 07:57] VITALS: BP 154/62
[2024-07-14] MEDS: PLAVIX 75 MG PO (07:57)
[2024-07-14] MEDS: SANTYL OINTMENT 1 APPLIC TOPICAL ×2 (07:57)
[2024-07-14] MEDS: ALDACTONE 25 MG PO (07:57)
[2024-07-14] MEDS: SINGULAIR 10 MG PO (07:57)
[2024-07-14] MEDS: LASIX 60 MG PO (07:57)
[2024-07-14] MEDS: ADVAIR HFA 115/21 MCG INHALER 2 PUFF INH ×2 (08:10→20:07)
[2024-07-14] MEDS: LAC HYDRIN, AM LACTIN LOTION 1 APPLIC TOPICAL ×2 (08:13→22:10)
[2024-07-14] MEDS: DESENEX/MITRAZOL/ZEASORB 1 APPLIC TOPICAL ×2 (08:13→22:09)
--- NOTE | 2024-07-14 10:59 | W.PN.HOSP.TC ---
Today's Communication/Plan
-
.
Assessment / Plan
Assessment / Plan
1. TIA/CVA (resolved)
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
- Hx: No prior CVA. s/p watchman fo A/fib. On aspirin/statin.
- CT (07/10): No acute intracranial abnormalities.
- MRI (07/11): No evidence of acute intracranial abnormalities. Possible mastoiditis.
- EEG (07/11): negative
- Continue aspirin/statin for now
- Appreciate Neuro Recommendations:
Would add clopidogrel to the patient's usual aspirin due to the patient's high risk for vascular causes of stroke, 21 days then discontinue
Goal of normotension
Goal of normoglycemia
Replace gabapentin with alternative medication to reduce the patient's risk of obesity secondary to medication exposure, change to Pregabalin 50 mg at bedtime
Patient is also be considered for replacement of sertraline with an alternative SSRI not associated with weight gain
- Fasting Lipid Panel unremarkable.
- No AC due to watchman.
- No carotid bruits on examination.
2. L Carotid Artery Stenosis
- >70% stenosis
- Appreciate Vascular Reccs:
- CT Angiogram Head (07/12): Greater than 70% distal right common carotid artery stenosis close to 90%. Greater than 70% proximal right internal carotid artery stenosis, closer to 90%. Less than 50% proximal left internal carotid artery stenosis.
- To discuss risks and benefits of CEA with vascular surgery
3. Bilateral Groin Masses and Resultant Lymphedema
- CT Pelvis (07/13): Soft tissue masses are present within both groins, which have increased in size compared to previous examinations dating back to September 2022. Most likely these represent neoplastic masses, with main differential considerations of
lymphoma, leukemia, and metastatic disease. Enlarged lymph nodes within the pelvis, most likely neoplastic lymphadenopathy. Reactive lymphadenopathy is still possible.
- CT Chest/Abd w/ IV and oral contrast (07/14):
- Oncology Consult:
- IRADs Consult for Bx:
3. Hypoxia -
- Combined restrictive/obstructive lung disease, morbid obesity, CHF. No signs of acute pulmonary infection or COPD exacerbation. Volume status at baseline
- Back to baseline today; 2L in 90s
- continue home montelukast, ics/laba, albuterol and diuretics; standing Advair
4. Stage 2 Pressure Wound of the Left Heel -
- Chronic pressure ulcer in left heel. More drainage at this time.
- Wound care consult
- Podiatry Consult
- May need repeat debridement
4. Stage 2 Pressure Wound of the Right Heel
- Chronic pressure ulcer in left heel.
- Wound Care
5. Tophaceous Gout
- Uric Acid 11.5
- 4 days of Prednisone 40 mg PO daily
- Start Prednisone Taper (07/14): 30mg PO daily x 3 days, 20 mg x 3 days, 10 mg x 3 days, then start Allopurinol
- Appreciate ID; no signs of infection
6. AFIB
- continue digoxin
- metoprolol
7. CHF
- continue lasix 60 bid, 40 noon
- fluid restriction and daily weight
- continue spironolactone, verapamil
Lovenox SubQ
1800 marlys Diabetic
Full Code
Dispo Planning: Home with VN and family supports
Anticipated Discharge: 24 - 48 hours
Subjective/Interval History
-
Date of Service: July 14, 2024
Patient seen and examined while resting comfortably in bed, no acute complaints this morning.
Objective Data
-
Labs:
Laboratory Results
07/14/24
05:55
WBC 7.1
Hgb 9.5 L
Hct 30.9 L
Plt Count 307
Sodium 140
Potassium 4.0
Chloride 98
Carbon Dioxide 36 H
BUN 29 H
Creatinine 1.0
Glucose 172 H
Calcium 9.4
Vital Signs:
Vital Signs
Temp Pulse Resp BP Pulse Ox
98.8 F 81 16 154/62 94
07/14/24 07:57 07/14/24 08:13 07/14/24 08:13 07/14/24 07:57 07/14/24 08:30
I&O
07/13/24 07/14/24 07/15/24
06:59 06:59 06:59
Intake Total 1440 / 1440 1320 / 1320
Output Total 1999 4400 / 4400
Balance -560 / -560 -3080 / -3080
Review of Systems
-
History Source: Patient
Constitutional: Reports No Symptoms
Respiratory: Reports No Symptoms
Cardiac: Reports No Symptoms
Abdomen/GI: Reports No Symptoms
Neuro: Reports No Symptoms
Physical Exam
-
General: No Apparent Distress, Comfortable, Appears Chronically Ill and Morbidly Obese
HEENT: Normocephalic, Atraumatic and Anicteric
Respiratory: Clear to Auscultation, Non Labored Respirations and Other (nasal cannula at 2L ); Negative Wheezes, Rales or Rhonchi
Cardiac: S1/S2 and Irregular Rhythm; Negative Murmur, Rub or Gallop
GI: Soft, Nontender, Nondistended and Normal Bowel Sounds
Musculoskeletal: No Clubbing, No Cyanosis, Edema, Right Lower Extrem and Edema, Left Lower Extrem
Skin: Warm and Dry
Neuro: Awake, Alert, Oriented and Nonfocal/Grossly Intact
Psych: Calm
Data Reviewed
-
CT Scan: Report Reviewed by me and Discussed with Patient
Labs: Labs Reviewed by me and Discussed with Patient
[2024-07-14 11:00] VITALS: BP 136/72
--- NOTE | 2024-07-14 11:11 | W.PN.ID1 ---
Date of Service
Date of Service: July 14, 2024
Today's Communication
See below.
Assessment / Plan
# Tophaceous gout flare of Right index finger, improving
- serum uric acid 11.5
- DC prednisone 40mg po daily (d4).
Start prednisone taper: 30mg po daily x 3d,then 20mg daily x 3 days, then 10mg daily x 3 days, then Allopurinol.
# Chronic BLE heel wounds
- No infection
# TIA
#Carotid stenosis
#Conditions prior to admission
Diabetes mellitus type 2
Neuropathy
Hypertension
CAD status post stents
Carotid artery disease
paroxysmal atrial fibrillation
Watchman procedure
CHF
PAD failed attempt left lower extremity angioplasty
Class III obesity BMI 46.5
SAMIA
Pulmonary HTN
Chronic lymphedema
Asthma
Left groin mass
Insomnia
Rosacea
Nephrolithiasis
Cholecystectomy
Bladder repair
Chronic bilateral heel wounds
Left heel osteomyelitis I+D 01/2024 s/p 6wks meropenem and linezolid
Left shoulder replacement
Chief Complaint
-: Other (gout)
Subjective / Review of Systems
Finger starting to improve.
Vital Signs / Physical Exam
Vital Signs
Vital Signs
Temp Pulse Resp BP Pulse Ox
98.8 F 81 16 154/62 94
07/14/24 07:57 07/14/24 08:13 07/14/24 08:13 07/14/24 07:57 07/14/24 08:30
Physical Exam
Constitutional: No Acute Distress
Cardiovascular: Irregular Rate and S1/S2
Gastrointestinal: Soft, Non Tender, Non Distended and Normal Bowel Sounds
Extremities: Edema (BLE lymphedema); Negative Erythema
Musculoskeletal: Other (Right pointer finger PIPJ decrease in induration/erythema, distal finger pad, decrease induration with 2 white tophaceous lesions; ROM at PIPJ now normal)
Wound: Other (Reviewed wound photos: left heel wound clean without surrounding erythema, no signs of infection)
Neurological: AO x 3
Objective Data
Lab Data
Lab Results
07/14/24 05:55
07/14/24 05:55
PT 14.8 Sec (11.4-14.6) H 07/10/24 22:57
INR 1.10 07/10/24 22:57
APTT 26.7 Sec (23.4-35.0) 07/10/24 22:57
Estimated Creat Clear 59 ml/min 07/14/24 05:55
Total Bilirubin 0.4 mg/dl (0.2-1.3) 07/12/24 08:20
AST 14 U/L (14-36) 07/12/24 08:20
ALT < 10 U/L (0-35) 07/12/24 08:20
Alkaline Phosphatase 71 U/L (38-126) 07/12/24 08:20
Most recent labs reviewed.
Micro Results:
07/11/24 05:02 MRSA Screen - Final
Nose No Methicillin Resistant Staphylococcus aureus isolated.
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 No radiographic evidence for aggressive osseous destruction, soft
tissue gas, or radiopaque foreign body.
07/11/24 Brain MRI: Status post right frontal craniotomy with adjacent encephalomalacia, stable from recent CT examinations. No evidence of acute intracranial abnormality. No evidence for a focal area of acute to subacute infarction.
[2024-07-14] MEDS: LASIX 40 MG PO (12:00)
[2024-07-14] MEDS: OMNIPAQUE 50 ML PO (12:00)
--- NOTE | 2024-07-14 12:11 | W.PN.UPDATE ---
Update Note
Progress Note Update
I saw and evaluated the patient. I reviewed the resident�s note and agree with findings and plan as documented in the resident�s note.
No new complaints.
Gen: Remains NAD, AAOx3, appears chronically ill.
Eyes: EOMI, PERRLA, no scleral icterus.
Neck: supple.
CV: irreg/irreg +S1/S2, no m/r/g.
Resp: Continues to remain CTAB anteriorly, no rales, wheezes, or rhonchi.
Abd: +BS, soft, NT, ND
Skin: No rashes.
Neuro: Remains CN 2-12 intact, non-focal.
Psych: Normal mood and affect.
MRI brain: Status post right frontal craniotomy with adjacent encephalomalacia, stable from recent CT examinations. No evidence of acute intracranial abnormality. No evidence for a focal area of acute to subacute infarction.
EEG: Unremarkable EEG for age
Carotid ultrasound:
1. Heavily calcified plaque within the right carotid bulb, velocity measurements suggestive of greater than 70% stenosis as per modified Society of Radiologists in Ultrasound consensus criteria (IAC carotid criteria white paper, 2020).
2. Minimal left carotid bulb plaque, measurements suggestive of 50-69% stenosis.
CXR: Bilateral atelectasis. Progressed.
CTA head/neck: Greater than 70% distal right common carotid artery stenosis close to 90%. Greater than 70% proximal right internal carotid artery stenosis, closer to 90%. Less than 50% proximal left internal carotid artery stenosis. Old right
frontal lobe infarct. Moderate atrophy. Mild periventricular small vessel ischemic disease.
CT Pelvis: Soft tissue masses are present within both groins, which have increased in size compared to previous examinations dating back to September 2022. Most likely these represent neoplastic masses, with main differential considerations of lymphoma,
leukemia, and metastatic disease. Enlarged lymph nodes within the pelvis, most likely neoplastic lymphadenopathy. Reactive lymphadenopathy is still possible.
B/L groin masses:
-CT Pelvis above, concern for malignancy
-check CT chest/abd with PO/IV
-c/s ONC
-c/s IR for Bx
-I explained to the pt that my concern is that her groin masses are malignant based on imaging. I also explained that we cannot diagnose cancer without a biopsy/tissue diagnosis.
TIA:
-had 10 - 20 minutes of slurred speech and facial droop now resolved. No prior CVA. s/p watchman fo afib. On aspirin/statin.
-acute CVA ruled out with MRI brain as above
-cont ASA/statin/Plavix as per neuro
-EEG unremarkable as above
-no AC due to watchman
-vascular following re:SIOBHAN
Chronic hypoxemic respiratory failure:
-Due to combined restrictive/obstructive lung disease, morbid obesity, chronic HFpEF. Pt was placed on home O2 about 2 weeks [employer].
-No signs of acute pulmonary infection or COPD exacerbation. Volume status at baseline.
-cont 5L NC O2
-Continue Singulair/Advair, PRN Albuterol.
Gout, R 2nd finger tophi:
-cont Prednisone, now on taper
Other problems:
Chronic pressure ulcer in left heel: would care
Right finger nodules, likely tophi, ID saw in c/s
Permanent Afib: h/o Watchman, cont BB/dig/Verapamil
Chronic HFpEF: cont home lasix. Daily wts, I/Os, FR, cont BB Aldactone.
Morbid obesity due to excess calories
FULL/lovenox
Total time spent on today's encounter was 51 minutes which included time spent in counseling the patient/family regarding diagnosis and treatment plan as listed above, goals of care, and symptom management. Case was discussed with nursing staff,
specialists, and care coordinators/case management. All labs and imaging personally reviewed by me. Remainder the time spent in detailed review of previous records, lab data, imaging, and other medical provider documentation.
[2024-07-14 12:26] LABS: Glucose - Point of Care 251 mg/dl (70-99)
[2024-07-14] MEDS: NOVOLOG FLEXPEN-LOW RESISTANCE 3 UNITS SC (12:51)
[2024-07-14 15:00] VITALS: BP 130/64
[2024-07-14 16:56] LABS: Glucose - Point of Care 412 mg/dl (70-99)
[2024-07-14] MEDS: LOVENOX 40 MG SC (17:11)
[2024-07-14] MEDS: NOVOLOG FLEXPEN-LOW RESISTANCE SC (17:28)
[2024-07-14 17:32] LABS: Glucose 374 mg/dl (70-99)
[2024-07-14] MEDS: NOVOLOG FLEXPEN 5 UNITS SC (18:24)
--- NOTE | 2024-07-14 19:21 | PTCARENOTE ---
accu check RR high, stat glucose ordered and MD notified. new order noted for 5 units of SQ Novolog.
[2024-07-14 19:54] VITALS: BP 131/66
[2024-07-14 20:00] LABS: Glucose - Point of Care 388 mg/dl (70-99)
[2024-07-14] MEDS: LYRICA 50 MG PO (20:53)
[2024-07-14] MEDS: ZOLOFT 50 MG PO (20:53)
[2024-07-14] MEDS: TRICOR 48 MG PO (20:53)
[2024-07-14] MEDS: LIPITOR 40 MG PO (20:54)
[2024-07-14] MEDS: LASIX PO ×2 (20:54→23:43)
--- NOTE | 2024-07-14 23:15 | CON.ONC ---
Impression
Impression
progressive bilateral inguinal adenopathy L>>R
Plan
Plan
agree with IR biopsy approach of node biopsy of their choice given rate of change in 2 years
Patient History
History of Present Illness
73yo WF with hx of complex cardiopulmonary medical problems whom we are asked to evaluate for progressing massive R>>L pelvic inguinal adenopathy absent by CT imagng 12/2019 thru 2022 other than for stable right adrenal mass and 12cm left cystic
ovarian mass with progressing left>>right groin masses/ adenopathy 10-12 cm compare to 2-4cm right without change of ovarian mass. She feels that her peripheral edema has worsened over this time period with repeat studies today noting no
intrathoracic nor abdominal adenopathy compared to 2019.
Past-Medical/Surgical History
Congestive CMP/ HTN/afib/SAMIA/DM
Patient Medication
�Medication �Instructions �Recorded �Confirmed �Last Taken �Type
albuterol sulfate 90 mcg/actuation 2 puff inhalation R Q4HPRN PRN 09/27/19 06/17/24 11/21/23 History
aerosol inhaler sob/wheezing
atorvastatin 40 mg tablet 40 mg PO HS High cholesterol 04/23/21 06/17/24 02/03/24 History
fenofibrate nanocrystallized 48 mg 48 mg PO HS High cholesterol 07/13/21 06/17/24 02/03/24 History
tablet
montelukast 10 mg tablet 10 mg PO DAILY Allergies 11/30/21 06/17/24 02/04/24 History
pantoprazole 40 mg tablet,delayed 40 mg PO DAILY Gastrointestinal 11/30/21 06/17/24 02/04/24 History
release issue
sertraline 50 mg tablet 50 mg PO HS Depression 11/30/21 06/17/24 02/03/24 History
digoxin 125 mcg (0.125 mg) tablet 125 mcg PO DAILY Heart 08/22/23 06/17/24 02/04/24 History
Disease/Condition
fluticasone 250 mcg-salmeterol 50 1 inh inhalation R DAILYPRN PRN 08/22/23 06/17/24 08/04/23 History
mcg/dose blistr powdr for sob/wheezing
inhalation (Advair Diskus)
levothyroxine 125 mcg tablet 125 mcg PO DAILY Thyroid 08/22/23 06/17/24 02/04/24 History
(Synthroid)
spironolactone 25 mg tablet 25 mg PO DAILY Heart Failure 08/22/23 06/17/24 02/04/24 History
verapamil 240 mg 24 hr 240 mg PO DAILY Blood Pressure 11/04/23 06/17/24 02/04/24 History
capsule,extended release
metoprolol succinate 25 mg 25 mg PO DAILY #30 tabs 11/06/23 06/17/24 02/04/24 Rx
tablet,extended release 24 hr
gabapentin 300 mg capsule 300 mg PO BID sleep/pain #10 caps 12/14/23 06/17/24 02/04/24 Rx
acetaminophen 325 mg tablet 650 mg PO Q6HPRN PRN mild 06/17/24 06/17/24 Unknown History
(Tylenol) pain/fever
aspirin 81 mg tablet,delayed 81 mg PO DAILY Blood Clot 06/17/24 06/17/24 Unknown History
release Prevention/Tx
furosemide 80 mg tablet 40 mg PO NOON Fluid 06/17/24 06/17/24 Unknown History
Retention/Swelling
furosemide 80 mg tablet 60 mg PO BID Fluid 06/17/24 06/17/24 Unknown History
Retention/Swelling
insulin glargine 100 unit/mL 3 unit SC HS DM 06/17/24 06/17/24 Unknown History
subcutaneous solution (Lantus
U-100 Insulin)
metformin 500 mg tablet,extended 1,000 mg PO BID Diabetes 06/17/24 06/17/24 Unknown History
release 24 hr
therapeutic multivitamin 1 tab PO DAILY Supplement 06/17/24 06/17/24 Unknown History
vitamin A and D 1 applic topical DAILYPRN PRN 06/17/24 06/17/24 Unknown History
diaper rash
ammonium lactate 12 % lotion 1 applic topical BID #400 grams 06/21/24 Unknown Rx
collagenase clostridium histo. 250 1 applic topical DAILY #90 grams 06/21/24 Unknown Rx
unit/gram topical ointment (Santyl)
estradiol 0.01% (0.1 mg/gram) 1 appful vaginal MoWeFr@2200 #42.5 06/21/24 Unknown Rx
vaginal cream grams
linezolid 600 mg tablet 600 mg PO BID 7 days #14 tabs 06/21/24 Unknown Rx
miconazole nitrate 2 % topical 1 applic topical BID #85 grams 06/21/24 Unknown Rx
powder (Miconazorb AF)
Active Medications
Generic Name Dose Route Start Last Admin
Trade Name Freq PRN Reason Stop Dose Admin
Acetaminophen 650 mg 07/11/24 03:36
Acetaminophen 650 Mg Rectal Suppository RECTAL 08/08/24 03:35
Q4HPRN PRN
TOUSSAINT, mild pain, or temp >100.4F
Acetaminophen 650 mg 07/11/24 03:36 07/13/24 13:01
Acetaminophen 325 Mg Tablet PO 08/08/24 03:35 650 mg
Q4HPRN PRN Administration
TOUSSAINT, mild pain, or temp >100.4F
Albuterol 2 puff 07/11/24 03:36
Albuterol Hfa [90 Mcg/Dose] Inhaler INH
R Q4HPRN PRN
sob/wheezing
Protocol
Ammonium Lactate 1 applic 07/11/24 08:00 07/14/24 22:10
Ammonium Lactate 12% (Lotion) 240 Ml Bottle TOPICAL 08/08/24 07:59 1 applic
BID OFELIA Administration
Aspirin 81 mg 07/11/24 08:00 07/14/24 07:56
Aspirin 81 Mg (Enteric Coated) Tablet PO 08/08/24 07:59 81 mg
DAILY OFELIA Administration
Atorvastatin Calcium 40 mg 07/11/24 22:00 07/14/24 20:54
Atorvastatin (Lipitor) 40 Mg Tablet PO 08/08/24 21:59 40 mg
HS OFELIA Administration
Clopidogrel Bisulfate 75 mg 07/11/24 13:00 07/14/24 07:57
Clopidogrel 75 Mg Tablet PO 07/31/24 08:01 75 mg
DAILY OFELIA Administration
Collagenase 1 applic 07/11/24 08:00 07/14/24 07:57
Collagenase Ointment 2.5 Gram Jar TOPICAL 08/08/24 07:59 1 applic
DAILY OFELIA Administration
Collagenase 0 applic 07/12/24 08:00 07/14/24 07:57
Collagenase Ointment 2.5 Gram Jar TOPICAL 08/09/24 07:59 1 applic
DAILY OFELIA Administration
Digoxin 125 mcg 07/11/24 08:00 07/14/24 07:56
Digoxin 125 Mcg Tablet PO 08/08/24 07:59 125 mcg
DAILY OFELIA Administration
Enoxaparin Sodium 40 mg 07/11/24 18:00 07/14/24 17:11
Enoxaparin Sodium 40 Mg/0.4 Ml Syringe SC 08/08/24 17:59 40 mg
QPM OFELIA Administration
Fenofibrate 48 mg 07/11/24 22:00 07/14/24 20:53
Fenofibrate 48 Mg Tablet PO 08/08/24 21:59 48 mg
HS OFELIA Administration
Furosemide 60 mg 07/11/24 08:00 07/14/24 07:57
Furosemide 20 Mg Tablet PO 08/08/24 07:59 60 mg
BID OFELIA Administration
Furosemide 40 mg 07/11/24 12:00 07/14/24 12:00
Furosemide 80 Mg Tablet PO 08/08/24 11:59 40 mg
NOON OFELIA Administration
Levothyroxine Sodium 125 mcg 07/11/24 06:00 07/14/24 05:06
Levothyroxine 125 Mcg Tablet PO 08/08/24 05:59 125 mcg
DAILY@0600 OFELIA Administration
Metformin HCl 1,000 mg 07/12/24 08:00 07/14/24 17:11
Metformin 500 Mg Extended Release Tablet PO 08/09/24 07:59 1,000 mg
BID AT 0800,1700 OFELIA Administration
Metoprolol Succinate 25 mg 07/11/24 08:00 07/14/24 07:56
Metoprolol 25 Mg Extended Release Tablet PO 08/08/24 07:59 25 mg
DAILY OFELIA Administration
Miconazole Nitrate 0 applic 07/11/24 08:00 07/14/24 22:09
Miconazole Powder Bottle TOPICAL 08/08/24 07:59 1 applic
BID OFELIA Administration
Montelukast Sodium 10 mg 07/11/24 08:00 07/14/24 07:57
Montelukast Sodium 10 Mg Tablet PO 08/08/24 07:59 10 mg
DAILY OFELIA Administration
Pantoprazole Sodium 40 mg 07/11/24 08:00 07/14/24 07:56
Pantoprazole 40 Mg Delayed Release Tablet PO 08/08/24 07:59 40 mg
DAILY OFELIA Administration
Prednisone 30 mg 07/15/24 08:00
Prednisone 10 Mg Tablet PO 07/17/24 08:01
DAILY OFELIA
Prednisone 20 mg 07/18/24 08:00
Prednisone 20 Mg Tablet PO 07/20/24 08:01
DAILY OFELIA
Prednisone 10 mg 07/21/24 08:00
Prednisone 10 Mg Tablet PO 07/23/24 08:01
DAILY OFELIA
Pregabalin 50 mg 07/11/24 22:00 07/14/24 20:53
Pregabalin 50 Mg Capsule PO 08/08/24 21:59 50 mg
HS OFELIA Administration
Fluticasone/Salmeterol 2 puff 07/11/24 20:00 07/14/24 20:07
Advair Hfa 115/21 Inhaler INH 08/08/24 19:59 2 puff
R BID OFELIA Administration
Sennosides 8.6 mg 07/11/24 03:36
Sennosides (Senokot) 8.6 Mg Tablet PO 08/08/24 03:35
BID PRN
constipation
Sertraline HCl 50 mg 07/11/24 22:00 07/14/24 20:53
Sertraline 50 Mg Tablet PO 08/08/24 21:59 50 mg
HS OFELIA Administration
Spironolactone 25 mg 07/11/24 08:00 07/14/24 07:57
Spironolactone 25 Mg Tablet PO 08/08/24 07:59 25 mg
DAILY OFELIA Administration
Verapamil HCl 240 mg 07/11/24 08:00 07/14/24 07:56
Verapamil 240 Mg (Extended Release) Tablet PO 08/08/24 07:59 240 mg
DAILY OFELIA Administration
Review of Systems
-
History Source: Patient
All Other Systems: Reviewed and Negative (other than as per HPI)
Physical Exam
-
General: Comfortable
HEENT: Moist Mucous Membranes
Cardiology: Irregular Rate/Rhythm and Murmur
Pulmonary: Rhonchi
GI: Soft and Normal Bowel Sounds
Musculoskeletal: No Clubbing, Edema, Right Lower Extrem and Edema, Left Lower Extrem
Neurology: Non Focal
Labs
Lab Results
WBC 7.1 10^3/uL (4.8-10.8) 07/14/24 05:55
RBC 3.74 10^6/uL (4.20-5.40) L 07/14/24 05:55
Hgb 9.5 g/dL (12.0-16.0) L 07/14/24 05:55
Hct 30.9 % (37.0-47.0) L 07/14/24 05:55
MCV 82.6 fL (81.0-99.0) 07/14/24 05:55
MCH 25.4 pg (27.0-31.0) L 07/14/24 05:55
MCHC 30.7 g/dL (33.0-37.0) L 07/14/24 05:55
RDW 16.7 % (11.5-14.5) H 07/14/24 05:55
Plt Count 307 10^3/uL (130-400) 07/14/24 05:55
MPV 10.0 fL (7.4-10.4) 07/14/24 05:55
Abs Immat Gran (auto) 0.1 10^3/uL (0-0.05) H 07/10/24 22:57
Absolute Neuts (auto) 5.6 10^3/uL (1.4-6.5) 07/10/24 22:57
Absolute Lymphs (auto) 0.9 10^3/uL (1.2-3.4) L 07/10/24 22:57
Absolute Monos (auto) 0.6 10^3/uL (0.1-0.6) 07/10/24 22:57
Absolute Eos (auto) 0.3 10^3/uL (0-0.7) 07/10/24 22:57
Absolute Basos (auto) 0.1 10^3/uL (0-0.2) 07/10/24 22:57
Immature Gran % 0.9 % (0-0.5) H 07/10/24 22:57
Neutrophils % 74.9 % (42.2-75.2) 07/10/24 22:57
Lymphocytes % 11.5 % (20.5-51.1) L 07/10/24 22:57
Monocytes % 7.4 % (1.7-9.3) 07/10/24 22:57
Eosinophils % 4.4 % (0-6) 07/10/24 22:57
Basophils % 0.9 % (0-2) 07/10/24 22:57
Creatinine 1.0 mg/dL (0.6-1.0) 07/14/24 05:55
Vital Signs
Vital Signs
Temp Pulse Resp BP Pulse Ox
97.6 F 84 17 131/66 95
07/14/24 19:54 07/14/24 20:18 07/14/24 20:18 07/14/24 19:54 07/14/24 20:18
[2024-07-14 23:55] VITALS: BP 134/69
[2024-07-15] VITALS (8 sets, daily range): BP systolic 63–136; BP diastolic 52–80; BMI 44.0
[2024-07-15] MEDS: SYNTHROID 125 MCG PO (05:51)
--- NOTE | 2024-07-15 07:23 | W.PN.HOSP.TC ---
Addendum entered and electronically signed by Stan Killian MD 07/15/24 22:00:
Attending Addendum-
I saw and evaluated the patient. I reviewed the resident�s note and agree with findings and plan as documented in the resident�s note. Sub: no further acute neuro sxs. chronic neuropathic sxs. 'i just wanna know if this is cancer' Very pleasant Full
12 point ROS reviewed and negative except as documented Exam: Vitals reviewed in chart GEN-NAD heart rrr lungs clear abd soft LE b/l lymphedema right 2nd finger tophi present no cellulitis
Plan:
#B/L groin masses:
-CT Pelvis-concern for malignancy
-CT chest/abd with PO/IV-Retroperitoneal lymphadenopathy, nonspecific but may be secondary to metastatic disease or lymphoma given findings on the recent pelvic CT Small bilateral pleural effusions.
-appreciate ONC input
-IR for Bx 07/15
-f/u results as OP
#NIDDM-
-confirm home meds apparently on Lantus and metformin
-hba1c 7.2 06/29
-SSI monitor AccuCheck closely
#Rt SIOBHAN
- >70%
- vasc on board appreciate input
- cont DAPT and statin for now
- await timing for surgery likely as OP if desired
# TIA:
-had 10-20 minutes of slurred speech and facial droop now resolved. No prior CVA. s/p watchman fo afib
-acute CVA ruled out with MRI brain
-echo 07/15- Left ventricular ejection fraction is 50-55%.
Enlarged right ventricular size.
Reduced right ventricular systolic function.
-cont ASA/statin and new Plavix x 21 days the DC as per neuro
-EEG unremarkable as above
-no AC has watchman
# Chronic hypoxemic respiratory failure:
-Due to combined restrictive/obstructive lung disease, morbid obesity, chronic HFpEF. Pt was placed on home O2 about 2 weeks ago
-No signs of acute pulmonary infection or COPD exacerbation. Volume status at baseline.
-5L->2L (baseline) and comfortable
-cont to wean for o2 sats 88-92%
-Continue Singulair/Advair, PRN Albuterol.
# Gout, R 2nd finger tophi:
-cont Prednisone taper
-followed by allopurinol
Other problems:
Chronic pressure ulcer in left heel: POA, would care
CAD- s/p stent cont assa statin metop
Depression- cont sertraline
Right finger nodules, likely tophi
Permanent Afib: h/o Watchman, cont metoprolol/dig/Verapamil
Chronic HFpEF: cont home lasix. Daily wts, I/Os, FR, cont metop Aldactone.
Morbid obesity due to excess calories
FULL/lovenox
Dispo DC home in am with VN, PT rec SNF- reeval
Time spent coordinating care, review of plan of care with resident, personally reviewed records in EMR, med rec, consults, notes, labs, radiology, d/w nursing � 57 mins
Original Note:
Today's Communication/Plan
-
IRADS for biopsy
Continue IV Lasix
Follow I's and O's, daily weights, creatinine
Wean oxygen as tolerated
Continue wound care
Continue DAPT
Assessment / Plan
Assessment / Plan
Assessment: 73-year-old female with remote history of right brain tumor s/p craniotomy 2 years ago with residual left facial and arm weakness that she thought resolved on its own,paroxysmal A-fib s/p Watchman, chronic lymphedema, chronic bilateral
calcaneus wounds, left heel/ankle osteomyelitis s/p 10 weeks antibiotics, multiple antibiotic allergies, asthma/COPD, non-insulin DM, CAD s/p cardiac stents, PAH, recently hospitalized for cellulitis on home oxygen 2L NC who presented to ED on
07/10/2024 with questionable TIA with speech difficulty and left facial droop that resolved after 20 minutes. Recently hospitalized 06/17 to 06/21 for right lower extremity cellulitis received daptomycin and completed outpatient linezolid. Was also
found to have cellulitis of right index finger.
PMH:
Atrial fibrillation, hypertension, hyperlipidemia, diabetes, hypothyroidism, chronic lower extremity lymphedema, GERD, history of asthma, morbid obesity, restrictive lung disease, history of carotid disease status post stent �2, recurrent heart
failure, nephrolithiasis. History of cholecystectomy, nephrolithiasis with kidney stone removal, tonsillectomy, bladder repair, multiple cardioversions and ablation, history of skin cancer, heel debridement, craniotomy for meningioma 2022.
Impression/plan:
TIA/CVA (resolved)
-Patient with history of right-sided brain tumor s/p craniotomy presented with questionable TIA/CVA, no prior history of CVA.
-Extensive workup with CT, MRI, EEG all negative.
-History of A-fib on aspirin and statin [facility] N[facility], clopidogrel added by neurology on 07/11, discontinue 07/31.
-Continue current therapy.
Right carotid Artery Stenosis
-Greater than 70% stenosis of right common and internal carotid arteries seen on head and neck CTA 07/12.
-Given patient's age and comorbidities, discuss risk and benefits of CEA with vascular.
-Continue DAPT therapy.
Bilateral Groin Masses, lymphedema
-Chronic.
-Pelvic CT 07/13 reports increasing in size compared to September 2022. Suspicious for lymphoma, metastatic lymphadenopathy, atypical reactive lymphadenopathy, leukemia or Castleman disease.
-CT chest/abdomen 07/14 with retroperitoneal lymphadenopathy suspicious for metastatic disease versus lymphoma, mild bilateral pleural effusions.
-IRADS Consulted for biopsy, patient agreeable.
Chronic anemia
-Hb 9.7, may represent anemia of chronic disease.
-Monitor CBC and transfuse as appropriate.
Chronic hypoxemic respiratory failure
-Patient in no acute cardiopulmonary distress, comfortable.
-History of COPD/asthma, HFpEF.
-Multifactorial, morbid obesity, recent 13 pounds weight gain (compared to February 2024). No signs of acute pulmonary infection, COPD exacerbation.
-Continue Singulair/Advair, as needed albuterol.
-Baseline O2 2L, currently on 3L O2 NC saturating at 98%.
-Wean as tolerated.
Bilateral heel stage 2 Pressure Wounds
-Chronic pressure ulcer with increased drainage, slowly healing on Santyl ointment application on right heel, collagen on left heel.
-Follows Dr. Galarza (podiatry) outpatient.
-Podiatry following.
-Continue wound care.
Right second finger tophaceous Gout
-Completed 4 days 40 mg prednisone.
-Continue prednisone taper.
-Start allopurinol after taper
Paroxysmal AFIB
-Under control.
-Continue digoxin, metoprolol.
Chronic HFpEF
-Recent testing lbs weight gain compared to 02/07/24
-Weight back to baseline.
-Continue IV Lasix and fluid restrictions.
-Monitor I's and O's, daily weights.
-Consider adding NILAY/ARB, SGLT2 inhibitors for GDMT at discharge.
-Follow creatinine.
DVT PPx: Lovenox SubQ
1800 marlys Diabetic
Full Code
Dispo Planning: Home with VN and family supports
Anticipated Discharge: > 48 hours
Subjective/Interval History
-
Date of Service: July 15, 2024
Patient seen and examined. In no acute distress. Denies chest pain, shortness of breath, palpitations, fever or chills. Subjectively, patient looks okay, conversant normally with no aphasia or facial asymmetry. Saturating at 98% on 3 L NC O2.
Has no acute complaints.
Objective Data
-
Vital Signs:
Vital Signs
Temp Pulse Resp BP Pulse Ox
97.7 F 75 18 120/68 97
07/15/24 06:05 07/15/24 06:05 07/15/24 06:05 07/15/24 06:05 07/15/24 06:05
I&O
02/02/2707/15/24 07/16/24
06:59 06:59 06:59
Intake Total 1320 / 1320 1200 / 1200
Output Total 4400 / 4400 1800 / 1800
Balance -3080 / -3080 -600 / -600
Review of Systems
-
History Source: Patient
Constitutional: Reports No Symptoms; Denies Fever or Fatigue
EENT: Reports No Symptoms Reported
Respiratory: Denies Trouble Breathing or Wheezing
Cardiac: Reports No Symptoms
Abdomen/GI: Reports No Symptoms
Genitourinary: Reports No Symptoms
Musculoskeletal: Reports No Symptoms
Skin: Reports No Symptoms
Neuro: Reports No Symptoms
Endocrine: Reports No Symptoms
Hematologic / Lymphatic: Reports No Symptoms
Physical Exam
-
General: No Apparent Distress, Comfortable, Appears Chronically Ill and Morbidly Obese
HEENT: Normocephalic, Atraumatic and Anicteric
Respiratory: Clear to Auscultation, Non Labored Respirations and Other (nasal cannula at 2L ); Negative Wheezes, Rales or Rhonchi
Cardiac: S1/S2, Irregular Rhythm, Murmur (2/6 systolic murmur), Calf Tenderness and Other (Bilateral peripheral edema (chronic venous stasis)); Negative Rub or Gallop
GI: Soft, Nontender, Nondistended and Normal Bowel Sounds
Musculoskeletal: No Clubbing, No Cyanosis, Edema, Right Lower Extrem and Edema, Left Lower Extrem
Skin: Warm and Dry
Neuro: Awake, Alert, Oriented, Nonfocal/Grossly Intact and Other (Generalized weakness); Negative Facial Droop
Psych: Calm
Data Reviewed
-
CT Scan: Image personally visualized and interpreted, Report Reviewed by me and Discussed with Physician
Medical Tests (Nuc Med, Echo etc): Image personally visualized and interpreted, Report Reviewed by me and Discussed with Physician
Labs: Labs Reviewed by me and Discussed with Physician
Old Records: Reviewed
[2024-07-15 07:52] LABS: Glucose - Point of Care 168 mg/dl (70-99)
[2024-07-15 07:59] LABS: % Basophils 0.6 % (0-2); % Eosinophils 1.1 % (0-6); % Immature Granulocytes 0.8 % (0-0.5); % Lymphocytes 6.9 % (20.5-51.1); % Monocytes 7.4 % (1.7-9.3); % Neutrophils 83.2 % (42.2-75.2); Absolute Eosinophils 0.1 10^3/uL (0-0.7); Absolute Immature Granulocytes 0.1 10^3/uL (0-0.05); Absolute Lymphocytes 0.4 10^3/uL (1.2-3.4); Absolute Monocytes 0.5 10^3/uL (0.1-0.6); Absolute Neutrophils 5.2 10^3/uL (1.4-6.5); Hematocrit 31.1 % (37.0-47.0); Hemoglobin 9.7 g/dL (12.0-16.0); Mean Corp Hgb Conc. 31.2 g/dL (33.0-37.0); Mean Corpuscular Hgb 25.5 pg (27.0-31.0); Mean Corpuscular Volume 81.6 fL (81.0-99.0); Mean Platelet Volume 9.4 fL (7.4-10.4); Nucleated Red Blood Cells % 0 %; Platelet Count 283 10^3/uL (130-400); Red Blood Cell Count 3.81 10^6/uL (4.20-5.40); Red Cell Dist. Width 16.8 % (11.5-14.5); White Blood Cell Count 6.2 10^3/uL (4.8-10.8)
[2024-07-15] MEDS: ADVAIR HFA 115/21 MCG INHALER 2 PUFF INH ×2 (08:01→21:24)
[2024-07-15 08:21] LABS: Blood Urea Nitrogen 29 mg/dl (7-17); Calcium 9.6 mg/dl (8.4-10.2); Carbon Dioxide 36 mmol/L (22-30); Chloride 99 mmol/L (98-107); Estimated Creatinine Clearance 65 ml/min; Glucose 155 mg/dl (70-99); Potassium 3.8 mmol/L (3.5-5.1); Sodium 140 mmol/L (135-145); eGFR > 60.00
[2024-07-15] MEDS: PLAVIX 75 MG PO (09:22)
[2024-07-15] MEDS: DELTASONE 30 MG PO (09:22)
[2024-07-15] MEDS: ALDACTONE 25 MG PO (09:25)
[2024-07-15] MEDS: PROTONIX 40 MG PO (09:25)
[2024-07-15] MEDS: LASIX 60 MG PO ×2 (09:25→21:03)
[2024-07-15] MEDS: SINGULAIR 10 MG PO (09:25)
[2024-07-15] MEDS: TOPROL XL 25 MG PO (09:26)
[2024-07-15] MEDS: LANOXIN 125 MCG PO (09:26)
[2024-07-15] MEDS: ASPIR LOW (ENTERIC COATED) 81 MG PO (09:26)
[2024-07-15] MEDS: GLUCOPHAGE XR EXTENDED RELEASE 1000 MG PO ×2 (09:26→18:20)
[2024-07-15] MEDS: CALAN EXTENDED RELEASE 240 MG PO (09:27)
--- NOTE | 2024-07-15 10:15 | CM ---
Patient awaiting biopsy. Current with [facility].
Patient also has private care givers.
Plan; Home with VN, son will transport.
[employer] [facility]
[2024-07-15 10:40] LABS: Reticulocyte Count 2.7 % (0.4-2.8)
[2024-07-15 11:05] LABS: Total Iron Binding Capacity 361 ug/dl (265-497)
--- NOTE | 2024-07-15 11:56 | W.PN.PUL3 ---
Today's Communication / Plan
-
Improving on O2, weaned to 2L NC, no new complaints
Eventual home O2 eval, can be done in AM
s/p LN biopsy, await path
Encouraged OOB/PT/IS
D/c planning per team
Assessment
-
73-year-old female with complex medical history including morbid obesity, restrictive lung disease, diabetes, history of recurrent heart failure, atrial fibrillation, asthma who presents with questionable TIA symptoms resolved after 20 minutes.
Patient noted to be hypoxic requiring 5 L. We are asked to comment on primary process
Status post TIA, 20 minutes of symptoms
Aphasia, facial droop, resolved
Recent lower extremity cellulitis now with right finger cellulitis
Acute hypoxic respiratory insufficiency requiring 5 L of oxygen
Dilated hypokinetic right ventricle per prior echo
PA pressure 53
Right bundle branch block
Moderate to severe MR per echo November 2023
Recent history of left heel osteomyelitis status post 6 weeks of antibiotics
Conditions present prior to admission
Hypertension/hyperlipidemia
Coronary disease with history of stent
Insulin-dependent diabetes
History of meningioma with craniotomy in the past
History of asthma, not on maintenance therapy
Morbid obesity, high suspicion for sleep apnea
Negative PSG, desaturation arnel 84%
Chronic atrial fibrillation on Xarelto
Chronic lymphedema
Restrictive lung disease, FVC 72%, DLCO 30%
Morbid obesity, sedentary
Multiple antibiotic allergies
Plan/recommendations
At this time, patient is without complaints. She is on oxygen-98% on 3L
She feels she is at her baseline.
Chest x-ray 07/11/2024 with mild basilar atelectasis
Eventual home O2 eval
ABG without acute findings
Chest x-ray from 06/17/24 suggests mild interstitial changes. CT chest at that time, Negative pulmonary embolism. There is a large pulmonary artery. There is no obvious interstitial changes
EKG 07/10/24 reveals right bundle branch with atrial fibrillation. This is chronic
Echocardiogram suggests RV dysfunction, dilated RV and pulmonary hypertension along with mitral regurgitation
Moving forward
Patient with extremely complex medical history
Salient features include severe gas exchange defect at baseline, RV dysfunction with pulmonary hypertension, valvular disease, morbid obesity
Patient states that she is on oxygen at home for the last month
She does have a history of hypoxia with sleep
There is no clear evidence of pneumonia
Recent CT chest from 06/17/24 without obvious pulmonary process
would follow-up chest x-ray in 4 to 6 weeks
Head of bed elevated, aspiration precautions
Patient would likely multifactorial causes for shortness of breath and hypoxia.
Agree with efforts for diuresis as patient feels her weight has increased
There is no wheezing on exam but agree with continuing Advair.
Prednisone for gout flare of right index finger
DVT prophylaxis: Lovenox
Reviewed with patient
Patient had appointment today with pulmonary. This will need to be rescheduled
Information left in chart
Disposition efforts
Subjective Data
-
Date of Service:
Date of Service: July 15, 2024
Chief Complaint: Pulmonary Follow Up
Subjective:
Doing well, no complaints
O2 lowered to 2L
s/p LN biopsy
Objective Data
Data Reviewed
Vital Signs / I&O / Oxygen:
Vital Signs
Temp Pulse Resp BP Pulse Ox
97.7 F 72 16 105/58 98
07/15/24 07:00 07/15/24 08:04 07/15/24 08:04 07/15/24 07:00 07/15/24 08:04
Intake and Output
07/14/24 07/15/24 07/16/24
06:59 06:59 06:59
Intake Total 1320 / 1320 1200 / 1200
Output Total 4400 / 4400 1800 / 1800
Balance -3080 / -3080 -600 / -600
SaO2 98
Nasal Cannula flow liters per 3
minute
Physical Exam
General: Comfortable
HEENT: Normocephalic, Anicteric and Other (Large neck)
Cardiovascular: S1-S2, Irregular Rhythm, Murmur (2/6 systolic murmur) and Peripheral Edema (Chronic venous stasis changes, chronic edema)
Respiratory: Wheeze (n), Crackles (few), Rhonchi (n), Non-Labored Respirations and Stridor (n)
GI: Soft, Non Distended (Obese) and Non Tender
Neurology: Awake, Alert and No Motor Deficits (Generally weak)
Skin: Cyanosis (n), Jaundice (n) and Rash (n)
Labs/Micro/Reports
Lab Data
07/15/24 07:44
07/15/24 07:44
Microbiology
07/11/24 05:02 Nose MRSA Screen - Final
No Methicillin Resistant Staphylococcus aureus isolated.
[2024-07-15 12:22] LABS: Glucose - Point of Care 246 mg/dl (70-99)
[2024-07-15] MEDS: DESENEX/MITRAZOL/ZEASORB 1 APPLIC TOPICAL ×2 (13:13→21:04)
[2024-07-15] MEDS: LASIX 40 MG PO (13:14)
[2024-07-15] MEDS: LAC HYDRIN, AM LACTIN LOTION 1 APPLIC TOPICAL ×2 (13:14→21:04)
[2024-07-15 13:57] LABS: Iron 54 ug/dl (37-170); Percent Saturation 14 % (20-50)
[2024-07-15 16:57] LABS: Glucose - Point of Care 337 mg/dl (70-99)
[2024-07-15] MEDS: LOVENOX 40 MG SC (18:20)
[2024-07-15] MEDS: SANTYL OINTMENT TOPICAL ×2 (20:55→20:56)
[2024-07-15] MEDS: LIPITOR 40 MG PO (21:02)
[2024-07-15] MEDS: TRICOR 48 MG PO (21:03)
[2024-07-15] MEDS: ZOLOFT 50 MG PO (21:03)
[2024-07-15] MEDS: LYRICA 50 MG PO (21:03)
[2024-07-15 21:49] LABS: Glucose - Point of Care 339 mg/dl (70-99)
[2024-07-15 23:58] LABS: Ferritin 25.5 ng/ml (11.1-264.0)
[2024-07-16 02:16] VITALS: BP 130/61
[2024-07-16] MEDS: SANTYL OINTMENT 1 APPLIC TOPICAL ×2 (05:25)
[2024-07-16] MEDS: SYNTHROID 125 MCG PO (05:26)
[2024-07-16 06:00] VITALS: BMI 42.9
--- NOTE | 2024-07-16 06:36 | PTCARENOTE ---
Patient insisted purewick be used at night stating, she uses one every night at home. RN re educated patient on risks of infection and skin breakdown. Patient states she is 'well aware of the risks and wants a purewick at night.' Purewick placed on
patient.
[2024-07-16 07:00] VITALS: BP 125/62
--- NOTE | 2024-07-16 07:12 | W.PN.HOSP.TC ---
Addendum entered and electronically signed by Stan Killian MD 07/16/24 23:38:
Attending Addendum-
I saw and evaluated the patient. I reviewed the resident�s note and agree with findings and plan as documented in the resident�s note. Sub: no further sxs. chronic neuropathic sxs. 'i think i have cancer' Very pleasant Full 12 point ROS reviewed and
negative except as documented Exam: Vitals reviewed in chart GEN-NAD heart rrr lungs clear abd soft LE b/l lymphedema right 2nd finger tophi present no cellulitis
Plan:
#B/L groin masses:
-CT Pelvis-concern for malignancy
-CT chest/abd with PO/IV-Retroperitoneal lymphadenopathy, nonspecific but may be secondary to metastatic disease or lymphoma given findings on the recent pelvic CT Small bilateral pleural effusions.
-appreciate ONC input
-IR Bx 07/15
-f/u results as OP
#NIDDM-
-confirm home meds apparently on Lantus and metformin
-hba1c 7.2 06/29
-SSI monitor AccuCheck closely
#Rt SIOBHAN
- >70%
- vasc on board appreciate input
- cont DAPT and statin for now
- surgery likely as OP if desired
# TIA:
-had 10-20 minutes of slurred speech and facial droop now resolved. No prior CVA. s/p watchman fo afib
-acute CVA ruled out with MRI brain
-echo 07/15- Left ventricular ejection fraction is 50-55%.
Enlarged right ventricular size.
Reduced right ventricular systolic function.
-cont ASA/statin and new Plavix x 21 days the DC as per neuro
-EEG unremarkable as above
-no AC has watchman
# Chronic hypoxemic respiratory failure:
-Due to combined restrictive/obstructive lung disease, morbid obesity, chronic HFpEF. Pt was placed on home O2 about 2 weeks ago
-No signs of acute pulmonary infection or COPD exacerbation. Volume status at baseline.
-5L->2L (baseline) and comfortable
-cont to wean for o2 sats 88-92%
-Continue Singulair/Advair, PRN Albuterol.
# Gout, R 2nd finger tophi:
-cont Prednisone taper
-followed by allopurinol
Other problems:
Chronic pressure ulcer in left heel: POA, would care
CAD- s/p stent cont assa statin metop
Depression- cont sertraline
Right finger nodules, likely tophi
Permanent Afib: h/o Watchman, cont metoprolol/dig/Verapamil
Chronic HFpEF: cont home lasix. Daily wts, I/Os, FR, cont metop Aldactone.
Morbid obesity due to excess calories
FULL/lovenox
Dispo DC home
Time spent coordinating care, DC planning, review of DC plan of care with resident, transition of care, review of records, med rec/scripts sent electronically, consults, notes, d/w consultants, nursing, family, and CM� 32 mins
Original Note:
Today's Communication/Plan
-
Continue wound care
Supplemental oxygen as required
Aspiration precautions
Discharge planning
Assessment / Plan
Assessment / Plan
Assessment: 73-year-old female with remote history of right brain tumor s/p craniotomy 2 years ago with residual left facial and arm weakness that she thought resolved on its own,paroxysmal A-fib s/p Watchman, chronic lymphedema, chronic bilateral
calcaneus wounds, left heel/ankle osteomyelitis s/p 10 weeks antibiotics, multiple antibiotic allergies, asthma/COPD, non-insulin DM, CAD s/p cardiac stents, PAH, recently hospitalized for cellulitis on home oxygen 2L NC who presented to ED on
07/10/2024 with questionable TIA with speech difficulty and left facial droop that resolved after 20 minutes. Recently hospitalized 06/17 to 06/21 for right lower extremity cellulitis received daptomycin and completed outpatient linezolid. Was also
found to have cellulitis of right index finger.
PMH:
Atrial fibrillation, hypertension, hyperlipidemia, diabetes, hypothyroidism, chronic lower extremity lymphedema, GERD, history of asthma, morbid obesity, restrictive lung disease, history of carotid disease status post stent �2, recurrent heart
failure, nephrolithiasis. History of cholecystectomy, nephrolithiasis with kidney stone removal, tonsillectomy, bladder repair, multiple cardioversions and ablation, history of skin cancer, heel debridement, craniotomy for meningioma 2022.
Impression/plan:
Bilateral Groin Masses, lymphedema
-Chronic. Concerns for malignancy.
-CT chest/abdomen 07/14 with retroperitoneal lymphadenopathy suspicious for metastatic disease versus lymphoma, mild bilateral pleural effusions.
-IR biopsied 07/15, pathology reports pending.
-Outpatient f/u with Oncology to discuss pathology.
-Oncology impute appreciated.
-IR appreciated.
Chronic hypoxemic respiratory failure
-Resolved. Patient on room air at 99% saturation.
-Multifactorial, morbid obesity, recent 13 pounds weight gain (compared to February 2024). No signs of acute pulmonary infection, volume overload, or COPD exacerbation.
-Continue Advair, singular, as needed albuterol.
-Aspiration precautions with HOB elevated.
-Outpatient sleep study and ultimately at bedtime CPAP machine.
Ebn-lwiegvo-bmyxfvetk DM
-A1c 7.2 06/29
-On Lantus and metformin at home.
-Continue SSI with Accu-Cheks.
TIA/CVA (resolved)
-Patient with history of right-sided brain tumor s/p craniotomy presented with questionable TIA/CVA, no prior history of CVA.
-Extensive workup with CT, MRI, EEG all negative.
-History of A-fib on aspirin and statin [employer], clopidogrel added by neurology on 07/11, discontinue until 07/31.
-Continue current therapy.
Right carotid Artery Stenosis
-Greater than 70% stenosis of right common and internal carotid arteries seen on head and neck CTA 07/12.
-Vascular on board, appreciated.
-Discussed with Dr. Joy, patient has outpatient F/U to discuss potential CEA.
-Continue DAPT and statin therapy.
Chronic anemia
-Hb 9.8, may represent anemia of chronic disease.
-Monitor CBC and transfuse as appropriate.
Bilateral heel stage 2 Pressure Wounds
-Chronic pressure ulcer with increased drainage, slowly healing on Santyl ointment application on right heel, collagen on left heel.
-Follows Dr. Galarza (podiatry) outpatient.
-Consider offloading boots.
-Podiatry following.
-Continue wound care.
Right index finger gouty flare
-Continue prednisone taper.
-Start allopurinol after taper
Paroxysmal AFIB
-Under control.
-Continue digoxin, metoprolol.
Chronic HFpEF
-Recent testing lbs weight gain compared to 02/07/24
-Weight back to baseline.
-Continue IV Lasix and fluid restrictions.
-Monitor I's and O's, daily weights.
-Consider adding NILAY/ARB, SGLT2 inhibitors for GDMT at discharge.
-Follow creatinine.
DVT PPx: Lovenox SubQ
1800 marlys Diabetic
Full Code
Dispo Planning: Home with VN and family supports
Anticipated Discharge: Today
Subjective/Interval History
-
Date of Service: July 16, 2024
I have seen and examined patient. There was no acute event reported overnight. She reports feeling well and slept through the night. Her only concerns is the report of the biopsy which is still pending. She denies chest pain, shortness of
breath, palpitations, fever or chills. She does not have any nausea, vomiting or diarrhea. She was breathing room air saturating at 99%. She remains hemodynamically stable and in no acute distress.
Objective Data
-
Labs:
Laboratory Results
07/16/24
06:28
WBC Pending
Hgb Pending
Hct Pending
Plt Count Pending
Sodium Pending
Potassium Pending
Chloride Pending
Carbon Dioxide Pending
BUN Pending
Creatinine Pending
Glucose Pending
Calcium Pending
Vital Signs:
Vital Signs
Temp Pulse Resp BP Pulse Ox
98.3 F 90 18 130/61 95
07/16/24 02:16 07/16/24 02:16 07/16/24 02:16 07/16/24 02:16 07/16/24 02:16
I&O
07/15/24 07/16/24 07/17/24
06:59 06:59 06:59
Intake Total 1200 / 1200 720 / 720 720 / 720
Output Total 1800 / 1800 2000 / 1999
Balance -600 / -600 720 / 720 -1280 / -1280
Review of Systems
-
History Source: Patient
Constitutional: Reports No Symptoms; Denies Fever or Fatigue
EENT: Reports No Symptoms Reported
Respiratory: Denies Trouble Breathing or Wheezing
Cardiac: Reports No Symptoms
Abdomen/GI: Reports No Symptoms
Genitourinary: Reports No Symptoms
Musculoskeletal: Reports No Symptoms
Skin: Reports No Symptoms
Neuro: Reports No Symptoms
Endocrine: Reports No Symptoms
Hematologic / Lymphatic: Reports No Symptoms
Physical Exam
-
General: No Apparent Distress, Comfortable, Appears Chronically Ill and Morbidly Obese
HEENT: Normocephalic, Atraumatic and Anicteric
Respiratory: Clear to Auscultation, Non Labored Respirations and Other (nasal cannula at 2L ); Negative Wheezes, Rales or Rhonchi
Cardiac: S1/S2, Irregular Rhythm, Murmur (2/6 systolic murmur), Calf Tenderness and Other (Bilateral peripheral edema (chronic venous stasis)); Negative Rub or Gallop
GI: Soft, Nontender, Nondistended and Normal Bowel Sounds
Musculoskeletal: No Clubbing, No Cyanosis, Edema, Right Lower Extrem and Edema, Left Lower Extrem
Skin: Warm and Dry
Neuro: Awake, Alert, Oriented, Nonfocal/Grossly Intact and Other (Generalized weakness); Negative Facial Droop
Psych: Calm
Data Reviewed
-
CT Scan: Image personally visualized and interpreted, Report Reviewed by me and Discussed with Physician
Medical Tests (Nuc Med, Echo etc): Image personally visualized and interpreted, Report Reviewed by me and Discussed with Physician
Labs: Labs Reviewed by me and Discussed with Physician
Old Records: Reviewed
[2024-07-16 07:35] LABS: Glucose - Point of Care 122 mg/dl (70-99)
[2024-07-16] MEDS: ADVAIR HFA 115/21 MCG INHALER 2 PUFF INH (08:08)
[2024-07-16 08:49] LABS: % Basophils 0.7 % (0-2); % Eosinophils 0.7 % (0-6); % Immature Granulocytes 0.6 % (0-0.5); % Lymphocytes 7.5 % (20.5-51.1); % Monocytes 6.5 % (1.7-9.3); Absolute Basophils 0.1 10^3/uL (0-0.2); Absolute Eosinophils 0.1 10^3/uL (0-0.7); Absolute Lymphocytes 0.5 10^3/uL (1.2-3.4); Absolute Monocytes 0.4 10^3/uL (0.1-0.6); Absolute Neutrophils 5.7 10^3/uL (1.4-6.5); Hematocrit 32.4 % (37.0-47.0); Hemoglobin 9.8 g/dL (12.0-16.0); Mean Corp Hgb Conc. 30.2 g/dL (33.0-37.0); Mean Corpuscular Hgb 24.9 pg (27.0-31.0); Mean Corpuscular Volume 82.2 fL (81.0-99.0); Mean Platelet Volume 9.9 fL (7.4-10.4); Nucleated Red Blood Cells % 0 %; Platelet Count 311 10^3/uL (130-400); Red Blood Cell Count 3.94 10^6/uL (4.20-5.40); Red Cell Dist. Width 16.9 % (11.5-14.5); White Blood Cell Count 6.8 10^3/uL (4.8-10.8)
[2024-07-16] MEDS: CALAN EXTENDED RELEASE 240 MG PO (09:00)
[2024-07-16] MEDS: DELTASONE 30 MG PO (09:01)
[2024-07-16] MEDS: GLUCOPHAGE XR EXTENDED RELEASE 1000 MG PO (09:01)
[2024-07-16] MEDS: PROTONIX 40 MG PO (09:01)
[2024-07-16] MEDS: LANOXIN 125 MCG PO (09:01)
[2024-07-16] MEDS: LASIX 60 MG PO (09:01)
[2024-07-16] MEDS: TOPROL XL 25 MG PO (09:02)
[2024-07-16] MEDS: SINGULAIR 10 MG PO (09:02)
[2024-07-16] MEDS: ASPIR LOW (ENTERIC COATED) 81 MG PO (09:02)
[2024-07-16] MEDS: LAC HYDRIN, AM LACTIN LOTION 1 APPLIC TOPICAL (09:03)
[2024-07-16] MEDS: PLAVIX 75 MG PO (09:03)
[2024-07-16] MEDS: DESENEX/MITRAZOL/ZEASORB 1 APPLIC TOPICAL (09:04)
--- NOTE | 2024-07-16 09:08 | W.PN.ONC2 ---
Today's Communication / Plan
-
.
Impression
Impression
bilateral inguinal adenopathy L>R s/p IR bx 07/15
TIA on antiplatelet
h/o right frontal craniotomy with adjacent encephalomalacia
combined restrictive/obstructive lung disease
morbid obesity
chronic HFpEF
AF
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
chronic b/l heel wounds
Plan
Plan
follow for path
OP follow up to review pathology will be arranged upon discharge
Subjective/Objective
Subjective
no new complaints
2L NC
Vital Signs:
Vital Signs
Temp Pulse Resp BP Pulse Ox
97.6 F 77 16 125/62 99
07/16/24 07:00 07/16/24 08:09 07/16/24 08:09 07/16/24 07:00 07/16/24 07:00
Lab Results:
Laboratory Data
WBC 6.8 10^3/uL (4.8-10.8) 07/16/24 06:28
Hgb 9.8 g/dL (12.0-16.0) L 07/16/24 06:28
Plt Count 311 10^3/uL (130-400) 07/16/24 06:28
PT 14.8 Sec (11.4-14.6) H 07/10/24 22:57
INR 1.10 07/10/24 22:57
APTT 26.7 Sec (23.4-35.0) 07/10/24 22:57
eGFR > 60.00 07/15/24 07:44
Physical Exam
General: Comfortable
HEENT: Moist Mucous Membranes
Cardiology: Irregular Rhythm
Pulmonary: clear
GI: Soft and Normal Bowel Sounds
Musculoskeletal: b/l LE edema
Orders
Orders
Orders From Last 24 Hours
07/15/24 10:21
Add On- LAB Routine
07/16/24 06:28
B12 [Vitamin B12] IN AM
[2024-07-16 09:53] LABS: Blood Urea Nitrogen 32 mg/dl (7-17); Calcium 9.5 mg/dl (8.4-10.2); Carbon Dioxide 33 mmol/L (22-30); Chloride 97 mmol/L (98-107); Estimated Creatinine Clearance 64 ml/min; Glucose 113 mg/dl (70-99); Potassium 3.9 mmol/L (3.5-5.1); Sodium 139 mmol/L (135-145); eGFR > 60.00
[2024-07-16 10:16] LABS: Uric Acid 10.9 mg/dl (2.5-6.2)
[2024-07-16 11:49] LABS: Glucose - Point of Care 270 mg/dl (70-99)
[2024-07-16] MEDS: LASIX 40 MG PO (13:07)
[2024-07-16] MEDS: ALDACTONE 25 MG PO (13:07)
--- NOTE | 2024-07-16 15:48 | CM ---
Patient is for discharge to home today with [facility], son to transport patient to home.
[facility]
[phone]

Plan: Home with [facility].
[2024-07-16 16:26] VITALS: BP 114/51
[2024-07-16 16:31] LABS: Vitamin B12 301 pg/ml (239-931)
--- NOTE | 2024-07-16 17:35 | W.DCSUMMARY ---
Addendum entered and electronically signed by Stan Killian MD 07/16/24 23:41:
Read, reviewed, and agree. See same day progress note for additional details. Med list updated-DC zyvox and only continue plavix x 21 days
Evan Killian MD
Original Note:
Documented by User: Trav Meadows MD, Resident 07/16/24 18:18
Discharge Summary
Discharge Data
Date of Admission: 07/11/24
Date of Discharge: 07/16/24
-
Pending Results: Yes
Additional Pending Results:
Pathology biopsy results
Hospital Course
Discharging Physician : Stan Killian MD ; Trav Meadows MD
Disposition : Home with VN
Primary care physician : Betsy Heard NP
Principal Discharge diagnosis :
Chronic hypoxic respiratory failure
Transient ischemic attack
Right coronary artery stenosis
Gouty flare right index finger
Bilateral groin masses suspicious for malignancy
Chronic Discharge diagnosis :
Chronic anemia
NIDDM
Lymphedema
Bilateral stage II heel pressure wounds
Permanent A-fib
Chronic HFpEF
Morbid obesity
Depression
Coronary artery disease
Hospital Course :
73-year-old female with remote history of right brain tumor s/p craniotomy 2 years ago with residual left facial and arm weakness that she thought resolved on its own,paroxysmal A-fib s/p Watchman, chronic lymphedema, chronic bilateral calcaneus
wounds, left heel/ankle osteomyelitis s/p 10 weeks antibiotics, multiple antibiotic allergies, asthma/COPD, non-insulin DM, CAD s/p cardiac stents, PAH, recently hospitalized for cellulitis on home oxygen 2L NC who presented to ED on 07/10/2024
with questionable TIA with speech difficulty and left facial droop that resolved after 20 minutes. Recently hospitalized 06/17 to 06/21 for right lower extremity cellulitis received daptomycin and completed outpatient linezolid.
While in the ED, she was found to require 5 L of oxygen by nasal cannula but denies SOB, chest pain, ESPINOZA. Her blood pressure was 97/70, pulse 69, she was afebrile with respiratory rate of 20. Her ECG was remarkable for A-fib at a rate of 68 with
right bundle branch block. Her CBC reviewed Hb of 8.6 similar to her previous presentation of 8.8. There was no leukocytosis or platelet abnormalities found. Her BUN and creatinine were unchanged from previous visit. She was evaluated with a
noncontrast CT of head which showed no acute changes. She also noted left lower extremity wound with purulence and foul smelling drainage and a painful lesions in the right index finger that has been present for several days prior to presentation.
An x-ray of her index finger was negative for foreign body. Patient was admitted for further evaluation and management.
Patient had a total of 6 nights stay in the hospital. While in the hospital, she was seen in consultation with neurology, infectious disease, pulmonology, vascular surgery, podiatry, and hematology/oncology.
She was evaluated with an EEG which was unremarkable. She was started on prednisone 40 mg daily for 4 days and was transition to a prednisone taper. Her CXR on 07/11/2024 showed mild bilateral atelectasis, her ABG with or without any acute findings.
Due to no evidence of pneumonia patient was treated with IV Lasix and her pulmonary function improved without further requirement for supplemental oxygen.
Patient was also found to have >70% stenosis in the right common and internal carotid arteries. She had a discussion with vascular surgery and agreed for outpatient workup for potential carotid endarterectomy.
Patient follows with Dr. Galarza (podiatry) as outpatient for chronic heel wounds and has visiting nurse at home applying Santyl ointment on her right heel and collagen on the left heel. She was evaluated and found to have a slowly healing
stage II chronic but stable right heel ulcers and was treated with the above while she was in the hospital.
Condition on discharge: Awake, alert and oriented x3, answer question properly, breathing room air and requiring no supplemental oxygen, able to make own decision and take care of activities of daily living, speech clear and comprehensive, continent
of the bowel and bladder, ambulate with minimal client services assistant, and is medically stable for discharge. She has been instructed to follow-up with primary care physician, pulmonology for further pulmonary evaluation and potential CPAP, vascular surgery
for potential CEA, and oncology to discuss pathology results. She will also finish her prescribed gabapentin and transition to pregabalin afterwards. Patient was also instructed to continue with prednisone taper and start allopurinol after the
taper. All questions were answered and all concerns addressed prior to discharge.
Important imaging findings :
CT chest/abdomen with IV contrast 07/14/2024:
Retroperitoneal lymphadenopathy, nonspecific but may be secondary to metastatic disease or lymphoma given findings on the recent pelvic CT.
Small bilateral pleural effusions.
5.8 cm left adrenal gland mass, present on multiple previous examinations with only slow interval growth, which is again favored to represent an adenoma.
CT pelvic with IV contrast 07/13/2024:
Soft tissue masses are present within both groins, which have increased in size compared to previous examinations dating back to September 2022. Most likely these represent neoplastic masses, with main differential considerations of lymphoma, leukemia,
and metastatic disease.
Enlarged lymph nodes within the pelvis, most likely neoplastic lymphadenopathy. Reactive lymphadenopathy is still possible.
Air is present within the endometrial canal, suggesting a fistulous connection, although no definite fistulous connection is identified.
Cystic mass within the left pelvis, stable dating back to September 2022 examination, compatible with a benign cystic mass, possibly a lymphocele.
Moderate to severe subcutaneous edema, greater left laterally compared to the right.
Numerous colonic diverticula with no convincing CT evidence for diverticulitis.
4 mm calcification in the lower pole the left kidney, likely a nephrolith.
CT head and neck angio with and without IV contrast 07/12/2024:
Greater than 70% distal right common carotid artery stenosis close to 90%.
Greater than 70% proximal right internal carotid artery stenosis, closer to 90%.
Less than 50% proximal left internal carotid artery stenosis
Mild C2/C3 degenerative disc disease. Stable
Acute and nonacute sinus disease as described above. Stable
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 Stable
Moderate atrophy. Stable
Mild periventricular small vessel ischemic disease. Stable
Procedure findings :
Vascular ultrasound 07/11/2024:
1. Heavily calcified plaque within the right carotid bulb, velocity measurements suggestive of greater than 70% stenosis as per modified Society of [employer]iologists in Ultrasound consensus criteria (IAC carotid criteria white paper, 2020).
2. Minimal left carotid bulb plaque, measurements suggestive of 50-69% stenosis.
Discharge Plan
-
[facility]
Discharge Diagnosis/Procedures: Chronic hypoxic respiratory failure
Transient ischemic attack
Right coronary artery stenosis
Gouty flare right index finger
NIDDM
Bilateral groin masses suspicious for malignancy
Chronic anemia
Lymphedema
Bilateral stage II heel pressure wounds
Permanent A-fib
Chronic HFpEF
Morbid obesity
Depression
Coronary artery disease
Condition: Fair
Diet: Low Cholesterol and Diabetic, Carb Controlled
Activity: No restrictions
Driving Restrictions: As prior to admission
Bathing Restrictions: None
Other Services: VN, PT and OT
Activity Restrictions/Additional Instructions:
Wound Care Instructions Left Heel- Clean with normal saline or soap and water. Apply no-sting barrier around wound. Cover wound with ABD and wrap with Kerlix. Change daily and PRN drainage.
Right Heel- Clean with normal saline or soap and water. Apply carlie thick layer of Santyl and cover with adaptic, ABD and wrap with Kerlix. Change daily.
Calazime to MASD of Buttock fold
Air mattress
Turning Schedule
Fiber filled air boots
Continue and finish up the remaining gabapentin and switch to pregabalin as prescribed.
Take 30 mg of prednisone starting 07/17/2024 and taper as instructed.
After taper, start allopurinol and follow-up with your primary care physician for further adjustments.
Instructions: Gout
Referrals:
Denis Cowan MD [Active] -
(Follow-up visit in 6 weeks
Chest x-ray in 4 to 6 weeks
SAVANA or Jimmy)
Obed Joy MD [Active] - 08/12/24 3:00 pm (Vascular surgery office follow-up)
Betsy Heard NP [Family Provider] - in less than 1 week
Prescriptions:
New
miconazole nitrate [Miconazorb AF] 2 % Powder
1 applic topical BID Qty: 85 0RF
pregabalin 50 mg Capsule
50 mg PO HS Qty: 30 0RF
clopidogrel 75 mg Tablet
75 mg PO DAILY Qty: 30 0RF
sennosides [Stacey-yaya] 8.6 mg Tablet
8.6 mg PO BID PRN (Reason: constipation) Qty: 30 0RF
Santyl 250 unit/gram Ointment
1 applic topical DAILY Qty: 90 0RF
prednisone 10 mg tablet
10 mg PO DIRECTED Qty: 12 0RF
Rx Instructions:
Take 30 mg by mouth once daily x 1 day, then 20mg daily x 3 days, then 10mg daily x 3 days
allopurinol 100 mg tablet
100 mg PO DAILY Qty: 30 0RF
Rx Instructions:
Start allopurinol after steroid taper
Continued
albuterol sulfate 1 PUFF HFA aerosol inhaler
2 puff inhalation R Q4HPRN PRN (Reason: sob/wheezing)
atorvastatin 40 MG tablet
40 mg PO HS
fenofibrate nanocrystallized 48 MG tablet
48 mg PO HS
pantoprazole 40 MG tablet,delayed release (DR/EC)
40 mg PO DAILY
sertraline 50 MG tablet
50 mg PO HS
montelukast 10 MG tablet
10 mg PO DAILY
fluticasone propion-salmeterol [Advair Diskus] 250-50 mcg/dose Blister With Device
1 inh INHALATION R DAILYPRN PRN (Reason: sob/wheezing)
spironolactone 25 mg Tablet
25 mg PO DAILY
levothyroxine [Synthroid] 125 mcg Tablet
125 mcg PO DAILY
digoxin 125 mcg (0.125 mg) Tablet
125 mcg PO DAILY
verapamil 240 mg capsule,ext rel. pellets 24 hr
240 mg PO DAILY
metoprolol succinate 25 mg Tablet Extended Release 24 Hr
25 mg PO DAILY Qty: 30 0RF
acetaminophen [Tylenol] 325 mg Tablet
650 mg PO Q6HPRN PRN (Reason: mild pain/fever)
therapeutic multivitamin Tablet
1 tab PO DAILY
furosemide 80 mg Tablet
60 mg PO BID
furosemide 80 mg Tablet
40 mg PO NOON
vitamin A and D Cream
1 applic TOPICAL DAILYPRN PRN (Reason: diaper rash)
metformin 500 mg Tablet Extended Release 24 Hr
1,000 mg PO BID
insulin glargine [Lantus U-100 Insulin] 100 unit/mL solution
3 unit SC HS
aspirin 81 mg tablet,delayed release (DR/EC)
81 mg PO DAILY
linezolid 600 mg Tablet
600 mg PO BID 7 Days Qty: 14 0RF
ammonium lactate 12 % Lotion
1 applic topical BID Qty: 400 0RF
Santyl 250 unit/gram Ointment
1 applic topical DAILY Qty: 90 0RF
miconazole nitrate [Miconazorb AF] 2 % Powder
1 applic topical BID Qty: 85 0RF
estradiol 0.01 % (0.1 mg/gram) Cream
1 appful vaginal MoWeFr@2200 Qty: 42.5 0RF
Discontinued
gabapentin 300 mg capsule
300 mg PO BID Qty: 10 0RF
Discharge Orders:
Discharge Patient (As Directed); Ordered 07/16/24
Ordered By: Trav Meadows
Discharge Date and Time
Discharge Date/Time: 07/16/24 17:04
Print Language: SLOVAK

Documented by User: Stan Killian MD 07/16/24 23:35
Discharge Summary
Discharge Data
Date of Admission: 07/11/24
Date of Discharge: 07/16/24
Discharge Plan
-
[facility]
Discharge Diagnosis/Procedures: Chronic hypoxic respiratory failure
Transient ischemic attack
Right coronary artery stenosis
Gouty flare right index finger
NIDDM
Bilateral groin masses suspicious for malignancy
Chronic anemia
Lymphedema
Bilateral stage II heel pressure wounds
Permanent A-fib
Chronic HFpEF
Morbid obesity
Depression
Coronary artery disease
Condition: Fair
Diet: Low Cholesterol and Diabetic, Carb Controlled
Activity: No restrictions
Driving Restrictions: As prior to admission
Bathing Restrictions: None
Other Services: VN, PT and OT
Activity Restrictions/Additional Instructions:
Wound Care Instructions Left Heel- Clean with normal saline or soap and water. Apply no-sting barrier around wound. Cover wound with ABD and wrap with Kerlix. Change daily and PRN drainage.
Right Heel- Clean with normal saline or soap and water. Apply carlie thick layer of Santyl and cover with adaptic, ABD and wrap with Kerlix. Change daily.
Calazime to MASD of Buttock fold
Air mattress
Turning Schedule
Fiber filled air boots
Continue and finish up the remaining gabapentin and switch to pregabalin as prescribed.
Take 30 mg of prednisone starting 07/17/2024 and taper as instructed.
After taper, start allopurinol and follow-up with your primary care physician for further adjustments.
Instructions: Gout
Referrals:
Denis Cowan MD [Active] -
(Follow-up visit in 6 weeks
Chest x-ray in 4 to 6 weeks
[employer] MANAGER or Jimmy)
Obed Joy MD [Active] - 08/12/24 3:00 pm (Vascular surgery office follow-up)
Betsy Heard NP [Family Provider] - in less than 1 week
Prescriptions:
New
miconazole nitrate [Miconazorb AF] 2 % Powder
1 applic topical BID Qty: 85 0RF
pregabalin 50 mg Capsule
50 mg PO HS Qty: 30 0RF
clopidogrel 75 mg Tablet
75 mg PO DAILY Qty: 30 0RF
sennosides [Stacey-yaya] 8.6 mg Tablet
8.6 mg PO BID PRN (Reason: constipation) Qty: 30 0RF
Santyl 250 unit/gram Ointment
1 applic topical DAILY Qty: 90 0RF
prednisone 10 mg tablet
10 mg PO DIRECTED Qty: 12 0RF
Rx Instructions:
Take 30 mg by mouth once daily x 1 day, then 20mg daily x 3 days, then 10mg daily x 3 days
allopurinol 100 mg tablet
100 mg PO DAILY Qty: 30 0RF
Rx Instructions:
Start allopurinol after steroid taper
Continued
albuterol sulfate 1 PUFF HFA aerosol inhaler
2 puff inhalation R Q4HPRN PRN (Reason: sob/wheezing)
atorvastatin 40 MG tablet
40 mg PO HS
fenofibrate nanocrystallized 48 MG tablet
48 mg PO HS
pantoprazole 40 MG tablet,delayed release (DR/EC)
40 mg PO DAILY
sertraline 50 MG tablet
50 mg PO HS
montelukast 10 MG tablet
10 mg PO DAILY
fluticasone propion-salmeterol [Advair Diskus] 250-50 mcg/dose Blister With Device
1 inh INHALATION R DAILYPRN PRN (Reason: sob/wheezing)
spironolactone 25 mg Tablet
25 mg PO DAILY
levothyroxine [Synthroid] 125 mcg Tablet
125 mcg PO DAILY
digoxin 125 mcg (0.125 mg) Tablet
125 mcg PO DAILY
verapamil 240 mg capsule,ext rel. pellets 24 hr
240 mg PO DAILY
metoprolol succinate 25 mg Tablet Extended Release 24 Hr
25 mg PO DAILY Qty: 30 0RF
acetaminophen [Tylenol] 325 mg Tablet
650 mg PO Q6HPRN PRN (Reason: mild pain/fever)
therapeutic multivitamin Tablet
1 tab PO DAILY
furosemide 80 mg Tablet
60 mg PO BID
furosemide 80 mg Tablet
40 mg PO NOON
vitamin A and D Cream
1 applic TOPICAL DAILYPRN PRN (Reason: diaper rash)
metformin 500 mg Tablet Extended Release 24 Hr
1,000 mg PO BID
insulin glargine [Lantus U-100 Insulin] 100 unit/mL solution
3 unit SC HS
aspirin 81 mg tablet,delayed release (DR/EC)
81 mg PO DAILY
linezolid 600 mg Tablet
600 mg PO BID 7 Days Qty: 14 0RF
ammonium lactate 12 % Lotion
1 applic topical BID Qty: 400 0RF
Santyl 250 unit/gram Ointment
1 applic topical DAILY Qty: 90 0RF
miconazole nitrate [Miconazorb AF] 2 % Powder
1 applic topical BID Qty: 85 0RF
estradiol 0.01 % (0.1 mg/gram) Cream
1 appful vaginal MoWeFr@2200 Qty: 42.5 0RF
Discontinued
gabapentin 300 mg capsule
300 mg PO BID Qty: 10 0RF
Discharge Orders:
Discharge Patient (As Directed); Ordered 02/11/25
Ordered By: Trav Meadows
Discharge Date and Time
Discharge Date/Time: 07/16/24 17:04
Print Language: SLOVAK
--- NOTE | 2024-07-17 14:23 | W.PN.UPDATE ---
Update Note
Progress Note Update
I called and spoke to patient and her family to clarify discharge prescriptions. Clarified clopidogrel is for 21 days, and she does not need to take anymore linezolid. Patient has not picked up her medications yet and had questions about
continuing clopidogrel after the 21 days. Patient will follow-up with her PCP for any medication adjustments and Dr. Joy to discuss further evaluation and management of her carotid artery stenosis. Pathology reports for biopsy still pending,
patient updated. Will follow-up with oncology to discuss results. Patient and family confirmed that they have an oncologist to follow-up with for pathology results. They also confirmed that they have a PET scan coming up in 2 days.
== END 2024-07-16 17:04 | disposition home health service (06) | DRG 41 ==
LOC: 4 WEST ACU 10:48
PROVIDERS: Internal Medicine; Nurse Practitioner Acute Care; Radiology Diagnostic Radiology; Student in an Organized Health Care Education/Training Program; ADMITTING PHYSICIAN Internal Medicine; ATTENDING PHYSICIAN Family Medicine; CONSULT PHYSICIAN Internal Medicine Critical Care Medicine; CONSULT PHYSICIAN Internal Medicine Hematology & Oncology; CONSULT PHYSICIAN Podiatrist; CONSULT PHYSICIAN Psychiatry & Neurology Neurology; CONSULT PHYSICIAN Student in an Organized Health Care Education/Training Program; EMERGENCY PHYSICIAN Emergency Medicine; FAMILY PHYSICIAN Internal Medicine; OTHER PHYSICIAN Surgery Vascular Surgery
PROC: 07BJ3ZX Excision of Left Inguinal Lymphatic, Percutaneous Approach, Diagnostic (ICD-10-PCS; 2024-07-15)
DX: I65.23 Occlusion and stenosis of bilateral carotid arteries (principal); I13.0 Hypertensive heart and chronic kidney disease with heart failure and stage 1 through stage 4 chronic kidney disease, or unspecified chronic kidney disease; J96.11 Chronic respiratory failure with hypoxia; I48.21 Permanent atrial fibrillation; I50.32 Chronic diastolic (congestive) heart failure; Z68.41 Body mass index [BMI] 40.0-44.9, adult; J98.11 Atelectasis; I25.10 Atherosclerotic heart disease of native coronary artery without angina pectoris; M10.9 Gout, unspecified; D64.9 Anemia, unspecified; E11.42 Type 2 diabetes mellitus with diabetic polyneuropathy; E11.22 Type 2 diabetes mellitus with diabetic chronic kidney disease; I89.0 Lymphedema, not elsewhere classified; E66.01 Morbid (severe) obesity due to excess calories; F32.9 Major depressive disorder, single episode, unspecified; G47.33 Obstructive sleep apnea (adult) (pediatric); R59.0 Localized enlarged lymph nodes; E27.9 Disorder of adrenal gland, unspecified; Z86.73 Personal history of transient ischemic attack (TIA), and cerebral infarction without residual deficits; Z79.84 Long term (current) use of oral hypoglycemic drugs; L03.011 Cellulitis of right finger; N18.30 Chronic kidney disease, stage 3 unspecified
CPT/HCPCS: 88305; 36600; 38505; 70450; 70496; 70498; 70551; 71045; 71260; 72193; 73140; 74160; 80048; 80053; 80061; 82607; 82728; 82746; 82805; 82947; 82962; 83540; 83550; 83735; 84443; 84484; 84550; 85025; 85027; 85045; 85576; 85610; 85730; 87070; 88333; 88341; 88342; 93005; 93306; 93880; 94640; 95813; 97163; 97167; 97530; 99285; G0378; Q9967

== ENCOUNTER → 2024-08-09 11:01 | Outpatient (REF) | payer MEDICARE, SELFPAY | LOC: RAD 11:01 | PROVIDERS: ATTENDING PHYSICIAN Surgery Vascular Surgery; FAMILY PHYSICIAN Internal Medicine | DX: I73.9 Peripheral vascular disease, unspecified (principal) | CPT/HCPCS: 93922; 93925 ==

== ENCOUNTER → 2024-08-17 10:38 | Outpatient (REF) | payer MEDICARE, SELFPAY ==
[2024-08-17 12:21] LABS: % Basophils 1.3 % (0-2); % Eosinophils 4.4 % (0-6); % Immature Granulocytes 1.1 % (0-0.5); % Monocytes 8.3 % (1.7-9.3); % Neutrophils 73.9 % (42.2-75.2); Absolute Basophils 0.1 10^3/uL (0-0.2); Absolute Eosinophils 0.3 10^3/uL (0-0.7); Absolute Immature Granulocytes 0.1 10^3/uL (0-0.05); Absolute Lymphocytes 0.8 10^3/uL (1.2-3.4); Absolute Monocytes 0.6 10^3/uL (0.1-0.6); Absolute Neutrophils 5.6 10^3/uL (1.4-6.5); Hematocrit 32.7 % (37.0-47.0); Hemoglobin 10.2 g/dL (12.0-16.0); Mean Corp Hgb Conc. 31.2 g/dL (33.0-37.0); Mean Corpuscular Hgb 25.9 pg (27.0-31.0); Mean Platelet Volume 9.8 fL (7.4-10.4); Nucleated Red Blood Cells % 0 %; Platelet Count 279 10^3/uL (130-400); Red Blood Cell Count 3.94 10^6/uL (4.20-5.40); Red Cell Dist. Width 19.7 % (11.5-14.5); White Blood Cell Count 7.6 10^3/uL (4.8-10.8)
[2024-08-17 12:42] LABS: ALT (SGPT) < 10 U/L (0-35); AST (SGOT) 16 U/L (14-36); Albumin 3.5 g/dl (3.5-5.0); Alkaline Phosphatase 98 U/L (38-126); Blood Urea Nitrogen 41 mg/dl (7-17); Calcium 9.6 mg/dl (8.4-10.2); Carbon Dioxide 33 mmol/L (22-30); Chloride 99 mmol/L (98-107); Glucose 167 mg/dl (70-99); LDH 365 U/L (120-246); Potassium 4.2 mmol/L (3.5-5.1); Sodium 139 mmol/L (135-145); Total Bilirubin 0.7 mg/dl (0.2-1.3); Total Protein 6.2 g/dl (6.3-8.2); Uric Acid 11.5 mg/dl (2.5-6.2)
[2024-08-19 18:15] LABS: Hepatitis B Surface Antigen Negative (Negative)
[2024-08-19 18:31] LABS: Hepatitis B Core Ab, Total Negative (Negative); Hepatitis B Surface Antibody Negative
== END ==
LOC: REG 10:38
PROVIDERS: ATTENDING PHYSICIAN Internal Medicine Hematology & Oncology; FAMILY PHYSICIAN Internal Medicine
DX: R19.04 Left lower quadrant abdominal swelling, mass and lump (principal); I89.0 Lymphedema, not elsewhere classified; D48.19 Other specified neoplasm of uncertain behavior of connective and other soft tissue; I65.21 Occlusion and stenosis of right carotid artery; L03.90 Cellulitis, unspecified; Z86.73 Personal history of transient ischemic attack (TIA), and cerebral infarction without residual deficits; C83.30 Diffuse large B-cell lymphoma, unspecified site
CPT/HCPCS: 36415; 80053; 83615; 84550; 85025; 86704; 86706; 87340

== ENCOUNTER 2024-08-19 17:18 | Inpatient (IN) | payer MEDICARE, SELFPAY ==
[2024-08-19 11:02] VITALS: BP 117/52
[2024-08-19 11:04] VITALS: BP 117/52
[2024-08-19 11:26] LABS: % Basophils 0.3 % (0-2); % Eosinophils 0.3 % (0-6); % Immature Granulocytes 0.7 % (0-0.5); % Lymphocytes 1.6 % (20.5-51.1); % Monocytes 1.3 % (1.7-9.3); % Neutrophils 95.8 % (42.2-75.2); Absolute Basophils 0.1 10^3/uL (0-0.2); Absolute Eosinophils 0.1 10^3/uL (0-0.7); Absolute Immature Granulocytes 0.1 10^3/uL (0-0.05); Absolute Lymphocytes 0.3 10^3/uL (1.2-3.4); Absolute Monocytes 0.3 10^3/uL (0.1-0.6); Absolute Neutrophils 18.1 10^3/uL (1.4-6.5); Hematocrit 36.2 % (37.0-47.0); Hemoglobin 11.1 g/dL (12.0-16.0); Mean Corp Hgb Conc. 30.7 g/dL (33.0-37.0); Mean Corpuscular Hgb 25.4 pg (27.0-31.0); Mean Corpuscular Volume 82.8 fL (81.0-99.0); Mean Platelet Volume 9.4 fL (7.4-10.4); Nucleated Red Blood Cells % 0 %; Platelet Count 299 10^3/uL (130-400); Red Blood Cell Count 4.37 10^6/uL (4.20-5.40); Red Cell Dist. Width 19.9 % (11.5-14.5); White Blood Cell Count 18.9 10^3/uL (4.8-10.8)
--- NOTE | 2024-08-19 11:31 | ED.GENMED ---
History of Present Illness
<DB Villanueva - Last Filed: 08/19/24 18:00>
General
Chief Complaint: Skin Problem
Source: patient
Exam Limitations: none
Time Seen by Provider: 08/19/24 11:17
Nursing documentation reviewed up to this point in time: agreed with
History of Present Illness
History of Present Illness:
Patient is a 73-year-old female with history of brain tumor with craniotomy, 2 years ago A-fib with Watchman procedure, chronic lymphedema asthma/COPD , recurrent heart failure, cardiac stents, recent diagnosis of non-Hodgkin's lymphoma presents to
the ER for evaluation of redness to left leg. She reports she has had chronic redness to left lower leg however caregiver who is at bedside reports patient now has redness and increased swelling to her left thigh. This thigh redness is new. Pt
has chronic left heal ulcer.
This was not there on when she was there with patient therefore this has been for the past several days.
Patient also complained of shortness of since this morning. She is normally not on oxygen. Patient does complain of chills.
Past History
<DB Villanueva - Last Filed: 08/19/24 18:00>
Past History
ED Past Medical History: Arrthythmia (Atrial fibrillation), Asthma, CAD, Cancer (Skin, meningioma grade 2 with radiation therapy and craniotomy), CHF, COPD, HTN, Hypercholesterolemia, NIDDM, PA, Hypothyroidism, Psychiatric (Major depression), Other
(PNA, Cellulitis, Chronic Lymphedema, bilateral heel ulcerations, osteomyelitis of the left heel, morbid obesity) and Other (Sepsis, peripheral neuropathy, anemia, rosacea, COVID 19, seizure disorder, pulmonary artery hypertension, nephrolithiasis,
B complex deficiency, prior acute respiratory failure); Negative Renal failure (Stage IIIa)
ED Past Surgical History: Brain (Right frontal craniotomy for meningioma 2022), Cardiac (cardioversion, Stents X 2, Watchman device), Cholecystectomy (1982), Orthopedic (Left reverse shoulder arthroplasty December 2023), Urological (Bladder repair,
kidney stone extraction) and Other (Right femoral artery cannulation January 2024, Mohs surgery forehead 2021)
Social History
Tobacco: Former smoker
Alcohol: Daily (Vodka 1 large glass)
Drug: None
Personal:
Living: alone
Employment: Retired
Family History
Family History: Hypertension
Review of Systems
<DB Villanueva - Last Filed: 08/19/24 18:00>
Review of Systems
Allergies reviewed?: Yes
Other source history: other (caregiver )
All Other Systems: ROS reviewed and negative except as documented in HPI and ROS
Constitutional: Reports chills
EENT: Reports no symptoms
Respiratory: Reports trouble breathing
Cardiac: Reports no symptoms
ABD/GI: Reports no symptoms
: Reports no symptoms
Musculoskeletal: Reports other (increasing redness to lle)
Skin: Reports other (see above )
Neurological: Reports no symptoms
Psychiatric: Reports no symptoms
Phy Exam
<DB Villanueva - Last Filed: 08/19/24 18:00>
General Physical Exam
General Presentation: no apparent distress
General age: appears stated age
General Skin: warm and dry
General Habitus: elderly
General Mental: alert
General Hydration: appears well hydrated
Course
<DB Villanueva - Last Filed: 08/19/24 18:00>
Orders/Labs/Results
Orders:
Orders
08/19/24 11:03
Electrocardiogram (*1) Urgent
Reason for Study: Other
Other Reason for Exam: Possible Sepsis
Cardiac Monitoring- Treatment ONCE
IV Insert/Care/Rem.- Treatment PRN
Straight cath- Treatment ONCE
08/19/24 11:04
EKG- Treatment ONCE
08/19/24 11:08
Blood Culture Q20M
HENNY Source: Blood/Venous
Specimen Description:
Comment: Urgent from separate sites. If patient screens positive for possible sepsis
Blood Culture Q20M
HENNY Source: Blood/Venous
Specimen Description:
Comment: Urgent from separate sites. If patient screens positive for possible sepsis
08/19/24 11:09
Complete Blood Count/With Diff Urgent
Comprehensive Metabolic Panel Urgent
Lactic Acid Q4H
Comment: ON ICE, CANCEL 2ND ORDER IF FIRST LACTIC ACID LEVEL <2
NT-proBNP Urgent
Urinalysis Reflex To Culture Urgent
Date Specimen was Collected: 08/19/24
Time Specimen was Collected: 11:04
Urine Microscopic Reflex Cult Urgent
Urine Culture Urgent
HENNY Source: U
Specimen Description:
Date Specimen was Collected: 08/19/24
Time Specimen was Collected: 11:04
08/19/24 11:38
Add On- LAB Urgent
Tests Added?: cardiac bnp
08/19/24 11:40
Acetaminophen [Tylenol] 650 mg PO NOW STA
08/19/24 11:41
CT Chest PE Study Urgent
Comment:
Reason For Exam: sob
08/19/24 11:45
0.9% Sodium Chloride 500 ml [Nss] 500 ml IV BOLUS
08/19/24 11:46
Venous Doppler Lwr Ext Bilat [US Periph Venous LOWER Ext Roney] Urgent
Comment:
Reason For Exam: swelling/pain/redness
08/19/24 15:03
Meropenem [Merrem] 1,000 mg IV NOW STA
08/19/24 15:15
Lactic Acid Q4H
Comment: ON ICE, CANCEL 2ND ORDER IF FIRST LACTIC ACID LEVEL <2
08/19/24 15:22
Sterile Water [Sterile Water For Injection] 20 ml .ROUTE .STK-MED
08/19/24 16:58
Admit/Transfer Patient As Directed
Co-Sign Provider:
Level of Care: Inpatient admission
Assign to:: Telemetry
Physician / Group: To Rodriguez
Diagnosis: sepsis, cellulitis, BAN
Reason for Telemetry: Arrhythmia
Date to Stop Telemetry: 08/22/24
Time to Stop Telemetry: 11:00
Reason for Hospitalization: sepsis, cellulitis, BAN
Expected length of stay greater than two midnights?: Yes
ELOS- Estimated Length of Stay in days: 3
I certify the patient meets the requirements for IP care: Yes
08/19/24 16:59
PRN Pain Medication Management As Directed
May give lesser potent ordered pain med per pt: Yes
preference::
Protocol:: Medication orders for pain may be administered in a
manner that supports deferring to patient preference
when the pt is:
- Requesting an ordered lesser potent pain medication.
Least to most potent pain medications are defined
as: acetaminophen < NSAID < tramadol < opioids
(morphine, oxycodone, hydromorphone).
- Requesting a lesser dose of the same medication IF
ORDERED.
- Requesting a less intrusive route of administration
if both routes are prescribed by the provider (PO <
IV).
08/19/24 17:04
Code Status As Directed
Resuscitation Status: Full Code
08/22/24 11:00
DC Protocol for Telemetry ONCE
Abnormal Lab Results
08/19/24
11:09
WBC 18.9 H 10^3/uL
(4.8-10.8)
Hgb 11.1 L g/dL
(12.0-16.0)
Hct 36.2 L %
(37.0-47.0)
MCH 25.4 L pg
(27.0-31.0)
MCHC 30.7 L g/dL
(33.0-37.0)
RDW 19.9 H %
(11.5-14.5)
Abs Immat Gran (auto) 0.1 H 10^3/uL
(0-0.05)
Absolute Neuts (auto) 18.1 H 10^3/uL
(1.4-6.5)
Absolute Lymphs (auto) 0.3 L 10^3/uL
(1.2-3.4)
Immature Gran % 0.7 H %
(0-0.5)
Neutrophils % 95.8 H %
(42.2-75.2)
Lymphocytes % 1.6 L %
(20.5-51.1)
Monocytes % 1.3 L %
(1.7-9.3)
Chloride 97 L mmol/L
(98-107)
Carbon Dioxide 33 H mmol/L
(22-30)
BUN 35 H mg/dl
(7-17)
Creatinine 1.2 H mg/dL
(0.6-1.0)
Glucose 224 H mg/dl
(70-99)
Lactic Acid 2.8 H mmol/L
(0.7-2.0)
Ur Occult Blood Reflex 2+ A
(Negative)
Leukocyte Esterase Rfl 3+ A
(Negative)
Urine RBC 3-6 A /HPF
(0-2)
Urine WBC (Reflex) 60-70 A /HPF
(0-5)
Urine Bacteria (Reflex) Moderate A
(Negative)
Urine Albumin (Reflex) 2+ A
(Neg - Trace)
08/19/24 11:09
08/19/24 11:09
Vital Signs
Initial and Last Documented VS:
Initial Vital Signs
Pulse Ox
87
08/19/24 11:01
Last Documented Vital Signs
Temp Pulse Resp BP Pulse Ox
99.8 F 107 34 111/38 97
08/19/24 11:04 08/19/24 13:45 08/19/24 13:45 08/19/24 13:28 08/19/24 13:30
Double Surface Operator consulted with Physician
Double Surface Operator consulted with physician?: Yes
Name of Physician Consulted: Nusrat
<Michelle Cole MD - Last Filed: 08/19/24 12:28>
Orders/Labs/Results
Orders:
Orders
08/19/24 11:03
Electrocardiogram (*1) Urgent
Reason for Study: Other
Other Reason for Exam: Possible Sepsis
Cardiac Monitoring- Treatment ONCE
IV Insert/Care/Rem.- Treatment PRN
Straight cath- Treatment ONCE
08/19/24 11:04
EKG- Treatment ONCE
08/19/24 11:08
Blood Culture Q20M
HENNY Source: Blood/Venous
Specimen Description:
Comment: Urgent from separate sites. If patient screens positive for possible sepsis
Blood Culture Q20M
HENNY Source: Blood/Venous
Specimen Description:
Comment: Urgent from separate sites. If patient screens positive for possible sepsis
08/19/24 11:09
Complete Blood Count/With Diff Urgent
Comprehensive Metabolic Panel Urgent
Lactic Acid Q4H
Comment: ON ICE, CANCEL 2ND ORDER IF FIRST LACTIC ACID LEVEL <2
NT-proBNP Urgent
Urinalysis Reflex To Culture Urgent
Date Specimen was Collected: 08/19/24
Time Specimen was Collected: 11:04
Urine Microscopic Reflex Cult Urgent
Urine Culture Urgent
HENNY Source: U
Specimen Description:
Date Specimen was Collected: 08/19/24
Time Specimen was Collected: 11:04
08/19/24 11:38
Add On- LAB Urgent
Tests Added?: cardiac bnp
08/19/24 11:40
Acetaminophen [Tylenol] 650 mg PO NOW STA
08/19/24 11:41
CT Chest PE Study Urgent
Comment:
Reason For Exam: sob
08/19/24 11:45
0.9% Sodium Chloride 500 ml [Nss] 500 ml IV BOLUS
08/19/24 11:46
Venous Doppler Lwr Ext Bilat [US Periph Venous LOWER Ext Roney] Urgent
Comment:
Reason For Exam: swelling/pain/redness
08/19/24 15:03
Meropenem [Merrem] 1,000 mg IV NOW STA
08/19/24 15:15
Lactic Acid Q4H
Comment: ON ICE, CANCEL 2ND ORDER IF FIRST LACTIC ACID LEVEL <2
08/19/24 15:22
Sterile Water [Sterile Water For Injection] 20 ml .ROUTE .STK-MED
08/19/24 16:58
Admit/Transfer Patient As Directed
Co-Sign Provider:
Level of Care: Inpatient admission
Assign to:: Telemetry
Physician / Group: To Rodriguez
Diagnosis: sepsis, cellulitis, BAN
Reason for Telemetry: Arrhythmia
Date to Stop Telemetry: 08/22/24
Time to Stop Telemetry: 11:00
Reason for Hospitalization: sepsis, cellulitis, BAN
Expected length of stay greater than two midnights?: Yes
ELOS- Estimated Length of Stay in days: 3
I certify the patient meets the requirements for IP care: Yes
08/19/24 16:59
PRN Pain Medication Management As Directed
May give lesser potent ordered pain med per pt: Yes
preference::
Protocol:: Medication orders for pain may be administered in a
manner that supports deferring to patient preference
when the pt is:
- Requesting an ordered lesser potent pain medication.
Least to most potent pain medications are defined
as: acetaminophen < NSAID < tramadol < opioids
(morphine, oxycodone, hydromorphone).
- Requesting a lesser dose of the same medication IF
ORDERED.
- Requesting a less intrusive route of administration
if both routes are prescribed by the provider (PO <
IV).
08/19/24 17:04
Code Status As Directed
Resuscitation Status: Full Code
08/22/24 11:00
DC Protocol for Telemetry ONCE
Abnormal Lab Results
08/19/24
11:09
WBC 18.9 H 10^3/uL
(4.8-10.8)
Hgb 11.1 L g/dL
(12.0-16.0)
Hct 36.2 L %
(37.0-47.0)
MCH 25.4 L pg
(27.0-31.0)
MCHC 30.7 L g/dL
(33.0-37.0)
RDW 19.9 H %
(11.5-14.5)
Abs Immat Gran (auto) 0.1 H 10^3/uL
(0-0.05)
Absolute Neuts (auto) 18.1 H 10^3/uL
(1.4-6.5)
Absolute Lymphs (auto) 0.3 L 10^3/uL
(1.2-3.4)
Immature Gran % 0.7 H %
(0-0.5)
Neutrophils % 95.8 H %
(42.2-75.2)
Lymphocytes % 1.6 L %
(20.5-51.1)
Monocytes % 1.3 L %
(1.7-9.3)
Chloride 97 L mmol/L
(98-107)
Carbon Dioxide 33 H mmol/L
(22-30)
BUN 35 H mg/dl
(7-17)
Creatinine 1.2 H mg/dL
(0.6-1.0)
Glucose 224 H mg/dl
(70-99)
Lactic Acid 2.8 H mmol/L
(0.7-2.0)
Ur Occult Blood Reflex 2+ A
(Negative)
Leukocyte Esterase Rfl 3+ A
(Negative)
Urine RBC 3-6 A /HPF
(0-2)
Urine WBC (Reflex) 60-70 A /HPF
(0-5)
Urine Bacteria (Reflex) Moderate A
(Negative)
Urine Albumin (Reflex) 2+ A
(Neg - Trace)
08/19/24 11:09
08/19/24 11:09
Vital Signs
Initial and Last Documented VS:
Initial Vital Signs
Pulse Ox
87
08/19/24 11:01
Last Documented Vital Signs
Temp Pulse Resp BP Pulse Ox
99.8 F 107 34 111/38 97
08/19/24 11:04 08/19/24 13:45 08/19/24 13:45 08/19/24 13:28 08/19/24 13:30
<DB Villanueva - Last Filed: 08/19/24 18:00>
MDM/Problems Addressed
MDM/Problems Addressed:
Patient is a 73-year-old female with significant medical history presents with increasing redness to left leg. Patient is chronic lymphedema and caregiver reports patient has chronic left lower extremity redness to the lower left leg however today
she noticed redness throughout the entire leg. Patient also complained of more shortness of breath today. Patient is normally not on oxygen but is hypoxic here in the ER and placed on oxygen. She has a temp of 99.8 with an elevated white count of
18.9. On exam she does have scattered redness to left leg.
Patient's creatinine is 1.2 was 1.12 days ago however this is slightly elevated from baseline. She is not on potassium normal sodium; lactic is 2.8. She does have a history of CHF.
Case discussed with ED physician who evaluated patient patient was given small fluid bolus because she does have a history of CHF. She is in A-fib however this is not new. She does have history of watchman and is on Plavix but no other blood
thinners other than baby aspirin a day.
This is however uncontrolled tachycardic at 117. Component of this may be related to low-grade temperature and elevated white count/cellulitis. Patient was given Tylenol.
Ultrasound negative for DVT bilaterally. There is bilateral groin soft tissue masses probably lymph nodes. Patient does have a history of lymphoma and prior PET scan showed uptake in the bilateral groin soft tissue masses representing malignancy.
Ct neg for PE stable pulmonary trunk dilatation.
Patient initially came in tachycardic A-fib in the low 100s ;however after small fluid bolus heart rate is improved. Will admit for cellulitis of left leg. Patient has multiple allergies including anaphylaxis with penicillins allergic to
quinolones and sulfa, vancomycin. During last hospitalization meropenem and Linezolid.
<DB Villanueva - Last Filed: 08/19/24 18:00>
*Radiology
Radiology exam reviewed: radiology read reviewed
*Pulse Oximetry
Patient hypoxic: yes
*EKG
Interpreted by ED Provider?: Yes
Heart Rate: 117
Rate: tachycardiac
Rhythm: a-fib
Ischemia: non-specific ST changes
*Critical Care Note
Total Time (30-74mins, 75-104mins- exclusive of procedures): Not Applicable
Data Reviewed
Review of Other/Old Records Reveals: Discharge Summary and Other (Echo from July/2024 shows a ejection fraction of 50-55% enlarged right ventricle reduced right ventricular systolic function mild mitral regurg biatrial enlargement moderate to
severe tricuspid regurg)
ED Attending Note
<DB Villanueva - Last Filed: 08/19/24 18:00>
-
Portions of this chart may have been created with voice recognition software.� Occasional wrong word or��sound alike� substitutions may have occurred due to the inherent limitations of voice recognition software.
<Michelle Cole MD - Last Filed: 08/19/24 12:28>
ED Attending Note
Patient seen and examined by attending physician: Yes
I performed the substantive portion of visit, reviewed & personally made and approve the management plan that is documented in note by myself or MAGDALENA.: Yes
ED Attending Note:
I have seen and evaluated the patient with a [id number] encounter. I have spoken to the [TITLE OFFICER] and involved in the medical history, the physical exam, medical decision making.
Evaluation and management service: agree unless noted differently below.
Results interpretation: agree unless noted differently below.
73-year-old woman presenting to the emergency department with concerns for skin infection. She does state that her left lower leg is always been slightly red and swollen however traveled up her left leg. She has been having some chills. Medics
arrival patient was hypoxic. She does have history of A-fib but is not on anticoagulation as she does have the watchman's procedure.
During my evaluation patient is resting comfortably. Her heart rate is irregularly irregular and tachycardic in the 120s. On exam she does have erythema edema and warmth to the entire left lower extremity. It does not spread into the groin region
for the patient.
Concern for cellulitis. No obvious abscess. Regarding patient's tachycardia and hypoxia concern for PE. Will give antibiotics and obtain CT studies. Will give patient small fluid resuscitation given her heart failure. She will need admission.
Discharge Plan
Departure
Patient Disposition: Admit
Date of Disposition: 08/19/24
Time of Disposition: 15:11
Admit to: Med/Surg
Admit to doctor: hospitalist
Presentation/result/management discussed w/ accepting MD/DO: Hospitalist
Patient with high blood pressure during this ER visit?: No
Condition: Fair
Covid-19: Not Applicable
Discharge Problem:
cellulitis left leg
Interventions
Interventions:
*Risk Screen - Suicide Last Done: 08/19/24 11:04
*General Assessment Last Done: 08/19/24 11:04
*Neglect/Abuse Screening Last Done: 08/19/24 11:04
*ED COVID-19 Vaccine History Last Done: 08/19/24 11:04
ED-Skin Assessment Last Done: 08/19/24 11:14
[2024-08-19 11:41] LABS: Lactic Acid 2.8 mmol/L (0.7-2.0)
[2024-08-19 11:43] LABS: ALT (SGPT) 10 U/L (0-35); AST (SGOT) 16 U/L (14-36); Albumin 3.5 g/dl (3.5-5.0); Alkaline Phosphatase 95 U/L (38-126); Blood Urea Nitrogen 35 mg/dl (7-17); Calcium 9.4 mg/dl (8.4-10.2); Carbon Dioxide 33 mmol/L (22-30); Chloride 97 mmol/L (98-107); Glucose 224 mg/dl (70-99); Potassium 4.2 mmol/L (3.5-5.1); Sodium 136 mmol/L (135-145); Total Protein 6.4 g/dl (6.3-8.2); eGFR 47.21
[2024-08-19] MEDS: TYLENOL 650 MG PO (13:05)
[2024-08-19] MEDS: NSS 500 IV (13:05)
[2024-08-19 13:28] VITALS: BP 111/38
[2024-08-19 14:06] LABS: NT-proBNP 3890 pg/ml
[2024-08-19 15:31] LABS: Urine Albumin 2+ (Neg - Trace); Urine Bilirubin Negative (Negative); Urine Character Cloudy (Clear); Urine Color Yellow; Urine Glucose Negative (Negative); Urine Ketone Negative (Negative); Urine Leukocyte 3+ (Negative); Urine Nitrite Negative (Negative); Urine Occult Blood 2+ (Negative); Urine Urobilinogen Negative (Neg - 1+)
--- NOTE | 2024-08-19 15:36 | PHANOTE ---
Addendum entered by Marva Shaver 08/19/24 15:38:
[facility] records show Keppra last taking 11/2023 but no records after that for Keppra
Original Note:
med rec note- patient son stated she off the Plavix and not sure if patient taking Keppra 500mg bid filled on 08/17/24.
[2024-08-19] MEDS: MERREM 1000 MG IV (15:52)
--- NOTE | 2024-08-19 15:54 | HPS.HSE ---
Family Physician
-
Family Physician: Betsy Heard
Chief Complaint
-
left lower extremity cellulitis
History of Present Illness
Patient is a 73-year-old female with past medical history significant for essential hypertension, hyperlipidemia, permanent atrial fibrillation, CKD III, hypothyroidism, DM II, CAD, GERD and CHF who presented to [facility] ED for evaluation
of worsening cellulitis in left lower extremity. Patient reports recurrent lower extremity cellulitis that has gotten increasingly worse over the past few days and this morning was associated with some disorientation and hypoxia in the 80s. Patient
denies use of oxygen use at home but is requiring 4L via NC to maintain SpO2 >93%. Patient states she feels she had a fever, but never took temperature at home, she said the sensation of fever was accompanied by the chills yesterday. She states that
she has had UTI symptoms that they have been attempting to treat out patient but continues with symptoms despite using two different prescribed treatments. Patient denies any cough, shortness of breath, chest pain, constipation or diarrhea.
Medical History
Past Medical History
Past Medical History: Reports Other
Additional Past Medical History:
essential hypertension
hyperlipidemia
permanent atrial fibrillation
CKD III
hypothyroidism
DM II
CAD
GERD
HFpEF
iron deficient anemia
H pylori infection
adrenal mass
lymphedema
allergic asthma
alcohol use
sleep apnea
PVD
pulmonary artery HTN
Hx cellulitis
Hx kidney stones
Past Surgical History: Reports Other
Additional Past Surgical History:
left should replacement
cholecystectomy
kidney stone removed
tonsillectomy
bladder repair
cardiac ablation
cardioversions
skin CA removed
heel debridement
watchman procedure
Social History
Tobacco: Former Smoker
Alcohol: Former
Drug: None
Living: With Family
Family History
Family History: Not pertinent
Allergies / Home Medications
Allergies reflects when Allergies were last updated in [facility].
Home Medications with original date entered in [facility]
Allergy/Medication List:
Allergies
Allergy/AdvReac Type Severity Reaction Status Date / Time
cat dander Allergy ASTHMA/SOB Verified 07/10/24 22:16
levofloxacin Allergy Hives Verified 07/10/24 22:16
[From Levaquin Leva-Carlos]
Penicillins Allergy Shortness Verified 07/10/24 22:16
of Breath
piperacillin Allergy Anaphylaxis, Verified 07/10/24 22:16
acute
hypoxemic
resp f,
hypotensitching
01/25/24
Sulfa (Sulfonamide Allergy Hives Verified 07/10/24 22:16
Antibiotics)
vancomycin [Vancomycin] Allergy Rash/red Verified 07/10/24 22:16
tino
syndrome
Home Medications
albuterol sulfate 90 mcg/actuation aerosol inhaler 2 puff inhalation R Q4HPRN PRN sob/wheezing 09/27/19
atorvastatin 40 mg tablet 40 mg PO HS High cholesterol 04/23/21
fenofibrate nanocrystallized 48 mg tablet 48 mg PO HS High cholesterol 07/13/21
montelukast 10 mg tablet 10 mg PO DAILY Allergies 11/30/21
pantoprazole 40 mg tablet,delayed release 40 mg PO DAILY Gastrointestinal issue 11/30/21
sertraline 50 mg tablet 50 mg PO HS Depression 11/30/21
digoxin 125 mcg (0.125 mg) tablet 125 mcg PO DAILY Heart Disease/Condition 08/22/23
fluticasone 250 mcg-salmeterol 50 mcg/dose blistr powdr for inhalation (Advair Diskus) 1 inh inhalation R DAILYPRN PRN sob/wheezing 08/22/23
levothyroxine 125 mcg tablet (Synthroid) 125 mcg PO DAILY Thyroid 08/22/23
spironolactone 25 mg tablet 25 mg PO DAILY Heart Failure 08/22/23
verapamil 240 mg 24 hr capsule,extended release 240 mg PO DAILY Blood Pressure 11/04/23
metoprolol succinate 25 mg tablet,extended release 24 hr 25 mg PO DAILY #30 tabs 11/06/23
aspirin 81 mg tablet,delayed release 81 mg PO DAILY Blood Clot Prevention/Tx 06/17/24
furosemide 80 mg tablet 40 mg PO NOON Fluid Retention/Swelling 06/17/24
furosemide 80 mg tablet 60 mg PO BID Fluid Retention/Swelling 06/17/24
insulin glargine 100 unit/mL subcutaneous solution (Lantus U-100 Insulin) 3 unit SC HS DM 06/17/24
metformin 500 mg tablet,extended release 24 hr 1,000 mg PO BID Diabetes 06/17/24
therapeutic multivitamin 1 tab PO DAILY Supplement 06/17/24
allopurinol 100 mg tablet 100 mg PO DAILY Gout prophylaxis #30 tabs 07/16/24
estradiol 0.01% (0.1 mg/gram) vaginal cream 1 appful vaginal MoWeFr@2200 Skin issues #42.5 grams 07/16/24
collagenase clostridium histo. 250 unit/gram topical ointment (Santyl) 1 applic topical DAILY left leg 08/19/24
sennosides 8.6 mg tablet (Stacey-yaya) 8.6 mg PO BIDPRN PRN constipation 08/19/24
zolpidem 12.5 mg tablet,extended release,multiphase (Ambien CR) 12.5 mg PO HSPRN PRN sleep 08/19/24
Review of Systems
-
History Source: Patient
Constitutional: Reports Fever and Chills
EENT: Reports No Symptoms
Respiratory: Reports No Symptoms
Cardiac: Reports No Symptoms
Abdomen/GI: Reports No Symptoms
: Reports Dysuria, Frequency and Urgency
Musculoskeletal: Reports Other (LLE edema and pain)
Skin: Reports No Symptoms
Neurological: Reports No Symptoms
Endocrine: Reports No Symptoms
Hematologic/Lymphatic: Reports No Symptoms
Psych: Reports No Symptoms
Physical Exam
Vital Signs
Vital Signs
Temp Pulse Resp BP Pulse Ox
99.8 F 107 34 111/38 97
08/19/24 11:04 08/19/24 13:45 08/19/24 13:45 08/19/24 13:28 08/19/24 13:30
Physical Exam
General: Well Developed, Well Nourished, No Apparent Distress, Comfortable, Conversant and Obese
HEENT: NormoCephalic, Moist mucous membranes, Atraumatic, PERRLA, [place] Conjunctivae, Nose Appears Normal and Ears Appear Normal
Respiratory: Clear and Non Labored Respirations
Cardiac: S1/S2, Irregular Rhythm, Tachycardia and Murmur; No Rub or Gallop
Breast: Deferred by me
GI: Soft, Non Tender, Non Distended and Normal Bowel Sounds; No Organomegaly
Rectal: Deferred by Provider
Genito-urinary: Deferred by me
Musculoskeletal: No Clubbing, No Cyanosis, Edema, Left Lower Extremity and Edema, Right Lower Extremity
Skin: No Rash
Neuro: Nonfocal/grossly intact
Psych: Calm and Intact Judgment/Insight
Laboratory Results
-
08/19/24 11:09
08/19/24 11:09
Laboratory Results
Lactic Acid 2.8 mmol/L (0.7-2.0) H 08/19/24 11:09
Total Bilirubin 1.0 mg/dl (0.2-1.3) 08/19/24 11:09
AST 16 U/L (14-36) 08/19/24 11:09
ALT 10 U/L (0-35) 08/19/24 11:09
Alkaline Phosphatase 95 U/L (38-126) 08/19/24 11:09
Data Reviewed
-
CT Scan: Report Reviewed by me (chest: No acute disease of the chest. No evidence of pulmonary embolus. Pulmonary trunk dilatation. Stable. This can be seen with pulmonary hypertension. Stable from 2017. Right upper lobe solid pleural-based
pulmonary nodule. Stable from 2017 suggesting is benign. No further follow-up necessary )
Ultrasound: Report Reviewed by me (LE: No sonographic evidence for lower extremity venous thrombosis. Limited evaluation of the calf veins. Bilateral groin soft tissue masses probably abnormal lymph nodes. Prior PET scan showed uptake in the
bilateral groin soft tissue masses likely representing malignancy. Grossly stable on the lef)
Medical Tests (Nuc Med, Echo, EKG etc): Report Reviewed by me (EKG: ATRIAL FIBRILLATION WITH RAPID VENTRICULAR RESPONSE RIGHT BUNDLE BRANCH BLOCK ABNORMAL ECG)
Lab Data: Labs Reviewed by me (WBC 18.9, hgb 11.1, hct 36.2, neut 95.8, BUN 35, Creat 1.2, lactic 2.8, BNP 3890)
Impression/Plan
-
IMPRESSION/PLAN:
#sepsis likely 2/2 LLE cellulitis
#Hx lymphedema
#Hx recurrent BLLE cellulitis
#Hx BL heel wounds
WBC 18.9, Neut 95.8, Lactic 2.8
BLLE US: No sonographic evidence for lower extremity venous thrombosis. Limited evaluation of the calf veins.
Bilateral groin soft tissue masses probably abnormal lymph nodes. Prior PET scan showed uptake in the bilateral groin soft tissue masses likely representing malignancy. Grossly stable on the left. Enlarged on the right.
- Admit to telemetry
- IV Meropenem (hx multiple Abx allergies)
- Consult podiatry
- Consult ID
- Consult wound care
#Acute Kidney Injury
#CKD III
BUN 35, Creat 1.2
- monitor BMP
#HFpEF
BNP 3890
- continue digoxin, furosemide, metoprolol, spironolactone and verapamil
- daily weights
- PRN oxygen to maintain SpO2 >93%, wean as able
#essential hypertension
- continue furosemide, metoprolol and spironolactone
#hyperlipidemia
- continue atorvastatin and fenofibrate
#permanent atrial fibrillation
EKG: ATRIAL FIBRILLATION WITH RAPID VENTRICULAR RESPONSE
RIGHT BUNDLE BRANCH BLOCK
ABNORMAL ECG
s/p watchman
- continue metoprolol
#hypothyroidism
- continue levothyroxine
#DM II
- AccuCheck AC & HS
- SSI
- continue Lantus
- hold metformin
#CAD
-continue aspirin, atorvastatin and fenofibrate
#GERD
- continue pantoprazole
#asthma
- continue albuterol and Advair
- continue montelukast
#gout
- continue allopurinol
#depression/anxiety
- continue sertraline
#iron deficient anemia
hgb 11.1, hct 36.2
- monitor h/h
Code status: Full code
DVT prophylaxis: Lovenox Sq
[2024-08-19 16:00] LABS: Urine Squamous Cell >30 /LPF (Few)
[2024-08-19 16:01] LABS: Urine Bacteria Moderate (Negative); Urine White Cell 60-70 /HPF (0-5)
--- NOTE | 2024-08-19 16:20 | W.PN.UPDATE ---
Update Note
Progress Note Update
This note serves as an addendum to the H&P by shellfish checker MAGDALENA
Elly Bah
HPI
73F HX right brain tumor s/p craniotomy 2 years ago with residual left facial and arm weakness resolved on its own, chr HFpEF, home O2 Perm A-fib s/p Watchman, chronic Dana lymphedema, chronic bilateral calcaneus wounds, left heel/ankle
osteomyelitis s/p 10 weeks antibiotics, multiple antibiotic allergies, asthma/COPD, non-insulin DM, CAD s/p cardiac stents, PAH, recently hospitalized for cellulitis on home oxygen 2L NC who presented to ED seen at ER:
- redness and increased swelling to her left thigh
- thigh redness is new
- HX chronic left heal ulcer.
ROS:
- shortness of since this morning.
- POS chills.
PHX; see above
Reviewed VS:
VSS
08/19/24
11:04
Temp 99.8 F
Pulse 122
Resp Rate 20
Blood pressure 117/52
SaO2 94
Nasal Cannula flow liters per minute 4
PE
Gen: obese , not toxic
HEENT: anicteric
Neck: supple
Lungs: CTA
Cor: Irregular, soft SM at Lt USB
Abdomen: obese
CONTROL CLERK REPAIRS: AAO3, grossly NFND
MS: b/l Dana edema / lymphedematous , B/l heel ulcer , weeping Lt Legs under the bandage . No foul odor
Psych: appropriate
07/16/24 08/17/24 08/19/24
06:28 11:03 11:09
WBC 18.9 H
Hgb 9.8 L 10.2 L 11.1 L
Plt Count 299
Chloride 97 L
Carbon Dioxide 33 H
BUN 35 H
Creatinine 0.9 1.1 H 1.2 H
eGFR > 60.00 52.40 47.21
Last hospitalist admission: 07/11/24 - 07/16/24
Principal Discharge diagnosis :
Chronic hypoxic RF
TIA
RCA stenosis
Gouty flare right index finger
Bilateral groin masses suspicious for malignancy
ASSESSMENT & PLAN
Sepsis due to LLEX cellulitis ; T 99.8, HR 100s, WCC 18.9, LA 2.8
Recurrent LLEx cellulitis
HX underlying Lymphedema
HX Bilateral stage II heel pressure wounds
HX chr ambulatory disorder ( Mostly WC bound, walk short distance with walker)
- NEG DANA US
- Multiple ABx allergy
- HX Meropenem on last admission
- start IV Meropenem
- Podiatry consult
- ID Consult
Dyspnea
HX Chronic HFpEF
NEG CTC PE protocol
- c/w COAL MILL OPERATOR PO Frusemide
- c/w COAL MILL OPERATOR Metoprolol XL
- c/w MRA : spironolactone 25 mg daily
- daily wt
- f/u Cr and K daily
HX Perm AF with watchman procedure
- c/w COAL MILL OPERATOR Metoprolol XL
- c/w COAL MILL OPERATOR Verapamil
- on Digoxin
- check Dig level
Borderline BAN with Cr 1.2, eGFR 47
bl Cr 0.9
bl eGFR > 60
- f/u Cr
ACDz - baseline Hgb hi 9s
HX Chronic anemia
- f/u Hgb
IrDMT2
- Hold Metformin
- c/w COAL MILL OPERATOR Lantus
- add ISS
CAD with stent: stable
HLD
- on Fenofibrate
Chronic Discharge diagnosis :
Morbid obesity
Depression on Sertraline
DVT Px: LMWH
Full code
IP TLM
[2024-08-19 19:00] VITALS: BP 107/53; BMI 46.2
[2024-08-19] MEDS: LOVENOX 40 MG SC (21:54)
[2024-08-19] MEDS: LASIX 60 MG PO (21:58)
[2024-08-19] MEDS: TRICOR 48 MG PO (21:59)
[2024-08-19] MEDS: ZOLOFT 50 MG PO (21:59)
[2024-08-19] MEDS: LIPITOR 40 MG PO (21:59)
[2024-08-19] MEDS: LANTUS SC (22:04)
[2024-08-19 22:05] LABS: Glucose - Point of Care 240 mg/dl (70-99)
[2024-08-19] MEDS: LANTUS 0.03 UNITS SC (22:17)
[2024-08-19 23:14] LABS: Lactic Acid 1.7 mmol/L (0.7-2.0)
[2024-08-19 23:36] VITALS: BMI 46.2
[2024-08-20] VITALS (8 sets, daily range): BP systolic 102–115; BP diastolic 45–64; PULSE 112–114; O2SAT 97–98; BMI 46.2; BMI 46.3
[2024-08-20] MEDS: SYNTHROID 125 MCG PO (06:33)
[2024-08-20] MEDS: MERREM 1000 MG IV (06:33)
[2024-08-20] MEDS: STERILE WATER FOR INJECTION 20 ML IV (06:35)
--- NOTE | 2024-08-20 07:18 | PTCARENOTE ---
Patient arrived on unit @1905 via stretcher from ED, pulled over to bed x3 assist. Patient AAOx3, denies any pain or discomfort. Skin assessment completed, oriented to unit, call duque within reach.
[2024-08-20 08:03] LABS: Glucose - Point of Care 151 mg/dl (70-99)
[2024-08-20 08:12] LABS: Hematocrit 28.6 % (37.0-47.0); Hemoglobin 9.1 g/dL (12.0-16.0); Mean Corp Hgb Conc. 31.8 g/dL (33.0-37.0); Mean Corpuscular Hgb 26.2 pg (27.0-31.0); Mean Corpuscular Volume 82.4 fL (81.0-99.0); Platelet Count 241 10^3/uL (130-400); Red Blood Cell Count 3.47 10^6/uL (4.20-5.40); Red Cell Dist. Width 19.8 % (11.5-14.5); White Blood Cell Count 12.4 10^3/uL (4.8-10.8)
[2024-08-20 09:03] LABS: Glycohemoglobin (HgbA1c) 8.7 % (4.0-5.6)
[2024-08-20 09:39] LABS: Blood Urea Nitrogen 36 mg/dl (7-17); Calcium 8.6 mg/dl (8.4-10.2); Carbon Dioxide 28 mmol/L (22-30); Chloride 98 mmol/L (98-107); Estimated Creatinine Clearance 55 ml/min; Glucose 135 mg/dl (70-99); Potassium 3.6 mmol/L (3.5-5.1); Sodium 135 mmol/L (135-145)
[2024-08-20] MEDS: NOVOLOG FLEXPEN-LOW RESISTANCE 1 UNITS SC (10:37)
[2024-08-20] MEDS: TOPROL XL 25 MG PO (10:38)
[2024-08-20] MEDS: THERAGRAN 1 TABLET PO (10:38)
[2024-08-20] MEDS: ALDACTONE 25 MG PO (10:38)
[2024-08-20] MEDS: LASIX 60 MG PO ×2 (10:38→17:16)
[2024-08-20] MEDS: ZYLOPRIM 100 MG PO (10:38)
[2024-08-20] MEDS: SINGULAIR 10 MG PO (10:39)
[2024-08-20] MEDS: CALAN EXTENDED RELEASE 240 MG PO (10:39)
[2024-08-20] MEDS: PROTONIX 40 MG PO (10:39)
[2024-08-20] MEDS: SANTYL OINTMENT 1 APPLIC TOPICAL (10:39)
[2024-08-20] MEDS: ASPIR LOW (ENTERIC COATED) 81 MG PO (10:39)
--- NOTE | 2024-08-20 11:03 | W.PN.HOSP.TC ---
Today's Communication/Plan
-
see A/P
Assessment / Plan
Assessment / Plan
HPI: 73-year-old female with past medical history significant for right brain tumor s/p craniotomy 2 years ago, essential hypertension, hyperlipidemia, permanent atrial fibrillation, CKD III, hypothyroidism, DM II, CAD, GERD and CHF; who presented
to [facility] ED for evaluation of worsening cellulitis in left lower extremity.
Patient reports recurrent lower extremity cellulitis that has gotten increasingly worse over the past few days and in the morning on DOA was associated with some disorientation and hypoxia in the 80s. Patient denies use of oxygen at home but is
requiring 4L via NC to maintain SpO2 >93%. Patient states she feels she had a fever, but never took temperature at home, she said the sensation of fever was accompanied by the chills.
She states that she has had UTI symptoms that they have been attempting to treat outpatient but continues with symptoms despite using two different prescribed treatments.
Patient denies any cough, shortness of breath, chest pain, constipation or diarrhea.
A/P:
# sepsis POA likely 2/2 LLE cellulitis
# Hx lymphedema
# Hx recurrent BL LE cellulitis
# Hx BL heel wounds
BL LE US: No sonographic evidence for lower extremity venous thrombosis. Bilateral groin soft tissue masses probably abnormal lymph nodes. Prior PET scan showed uptake in the bilateral groin soft tissue masses likely representing malignancy. Grossly
stable on the left. Enlarged on the right.
Cont IV Meropenem (hx multiple Abx allergies)
Follow blood cultures
Follow urine culture sent from admission
Consult podiatry
Consult ID
Consult wound care
# non-Hodgkin lymphoma
pending outpt Rx, outpt Onc Dr Mejía
Pt aware of inguinal LN
# CKD III
Creat at 1.1 today, baseline 0.9
# HFpEF
continue digoxin, furosemide, metoprolol, and verapamil with holding parameter
spironolactone on hold
PRN oxygen to maintain SpO2 >93%, wean as able
# essential hypertension
continue furosemide, metoprolol with holding parameter
spironolactone on hold
# hyperlipidemia
continue atorvastatin and fenofibrate
# permanent atrial fibrillation, s/p watchman
continue metoprolol
# hypothyroidism
continue levothyroxine
# DM II
AccuCheck AC & HS
SSI
continue Lantus 3 units HS
hold metformin
# CAD
continue aspirin, atorvastatin and fenofibrate
# GERD
continue pantoprazole
# asthma
continue albuterol and Advair
continue montelukast
# gout
continue allopurinol
# depression/anxiety
continue sertraline
# iron deficient anemia
hgb 11.1, hct 36.2
Code status: Full code
DVT prophylaxis: Lovenox Sq
Dispo: PT eval
DW Stump Blower at bedside
DW RN
total time spent 51 min
Anticipated Discharge: > 48 hours
Subjective/Interval History
-
Date of Service: August 20, 2024
Objective Data
-
Labs:
Laboratory Results
08/20/24
06:19
WBC 12.4 H
Hgb 9.1 L
Hct 28.6 L
Plt Count 241
Sodium 135
Potassium 3.6
Chloride 98
Carbon Dioxide 28
BUN 36 H
Creatinine 1.1 H
Glucose 135 H
Calcium 8.6
Vital Signs:
Vital Signs
Temp Pulse Resp BP Pulse Ox
36.7 C 103 18 102/49 97
08/20/24 08:04 08/20/24 08:04 08/20/24 08:04 08/20/24 08:04 08/20/24 08:04
I&O
08/19/24 08/20/24 08/21/24
06:59 06:59 06:59
Intake Total 480 / 480
Balance 480 / 480
Review of Systems
-
All other systems: Reviewed and negative
Physical Exam
-
General: Well Developed, Well Nourished, Comfortable, Conversant, Appears Chronically Ill and Morbidly Obese
HEENT: Normocephalic, Atraumatic, Anicteric and Oxygen (4L NC)
Respiratory: Clear to Auscultation and Non Labored Respirations; Negative Wheezes, Rales, Rhonchi or Accessory Resp Muscle Use
Cardiac: S1/S2, Irregular Rhythm, Calf Tenderness and Other (Bilateral peripheral edema (chronic venous stasis)); Negative Rub or Gallop
GI: Soft, Nontender, Nondistended and Normal Bowel Sounds
Musculoskeletal: No Clubbing, No Cyanosis, Edema, Right Lower Extrem and Edema, Left Lower Extrem
Skin: Warm and Dry
Neuro: Awake, Alert and Oriented
Psych: Calm and Intact Judgement/Insight
Data Reviewed
-
CT Scan: Report Reviewed by me
Labs: Labs Reviewed by me
--- NOTE | 2024-08-20 11:51 | WOUNDNOTE ---
R HEEL CLOSER VIEW
--- NOTE | 2024-08-20 11:55 | WOUNDNOTE ---
WON RN note: Patient admitted with cellulitis of L leg.
See H&P for complete history. Lives with family who assist in care.
PMH: Hypertension, Diabetes type 2, Chronic lymphedema, CHF, Acute hypoxic respiratory insufficiency, Benign hypertension, Morbid obesity, Chronic kidney disease stage 3, Paroxysmal atrial fibrillation, Hypothyroidism, bilateral heel wound
debridement, left heel osteomyelitis
Wound Location and type/assessment: Patient known to service, last seen 07/11/24 for healing heel PI's. R heel healing stage 3 PI, much smaller compared to last seen, base pink but 0.5cm depth. L heel with healing stage 4 PI, base pink mixed with
palomo slough, L leg with redness. Santyl already on order, Podiatry and I&D on consult. X ray of both feet are negative for osteomyelitis. Ultrasound of legs negative for DVT. Patient currently sitting in recliner chair with heels offloaded. Spoke to
PT Aleksey who reports patient requires allot of assistance in ambulating. Has air chair cushion on chair PT confirmed. Patient had MASD and stage 2 PI gluteal cleft in past, nurse Bello said its the same, foam in use. Unable to see at this time but
nurse will assess when back in bed and let this engineering writer know if need to assess. Patient follows with Dr. Galarza she reports, using Santyl with dry dressing and Tubigrip both legs daily.
Appetite: Good
Pressure redistribution devices in place: Accumax, asked nurse Bello to apply static Air overlay when able. Pillow under calves. Fiber filled boots to be brought in by family, nurse will apply when arrives.
Plan: Dressings changed with assist of student nurse. Santyl, dry dressing and Tubigrip F knee high applied. Will confirm orders with hospitalist and updated nurse. Updated care plan and will follow as needed.
--- NOTE | 2024-08-20 12:07 | CON.ID ---
Consultation
-
Date/Time Consultation Requested: 08/19/24 19:42
Date/Time Consultation Performed: 08/20/24 12:07
Requesting Provider: Niurka SAWANT
Performing Provider: Dr Kearns
Reason for Consultation: left lower extremity cellulitis
Chief Complaint / Past History
Chief Complaint
left lower extremity cellulitis
History of Present Illness
Ms Clark is a 73 year old female with history of non-Hodgkin lymphoma, chronic L heel wound, DM2, class III obesity, who presented here yesterday for progressive left lower extremity swelling redness and new disorientation and hypoxia to the 80s.
Also subjective fever and chills. Also reporting weeks of dysuria and urgency. Says shes had at least 3 seperate doses of fosfomycin (not in series) on 3 different occasions but 'that didnt work.' Doesnt recall having previous amitriptyline.
Patient denies any cough, shortness of breath, chest pain, constipation or diarrhea.
left heel/ankle osteomyelitis I+D 01/2024 s/p 6wks meropenem and linezolid. The wound does not probe to bone and is slowly healing. she continues to follow up with podiatry for this.
Since arrival here she has been afebrile, bp stable, wbc initially 18 now 12, hgb 9.1, plt 241, L shift is noted, cr baseline 0.9 last month, on arrival cr 1.1 and has been stable at that level, ua with 60-70 wbc/hpf and moderate bacteria, 08/19 foot
xray right: soft tissue swelling, no osteomyelitis, 08/19 left foot: Soft tissue swelling, appears greatest involving the dorsal forefoot, US: no dvt, probable inguinal lymphadenopathy, blood cultures x2 no growth to date, currently on meropenem,
Past History
Additional Past Medical History:
essential hypertension
hyperlipidemia
permanent atrial fibrillation
CKD III
hypothyroidism
DM II
CAD
Gout
GERD
HFpEF
iron deficient anemia
H pylori infection
adrenal mass
lymphedema
allergic asthma
alcohol use
sleep apnea
PVD
pulmonary artery HTN
Hx cellulitis
Hx kidney stones
Additional Past Surgical History:
left should replacement
cholecystectomy
kidney stone removed
tonsillectomy
bladder repair
cardiac ablation
cardioversions
skin CA removed
heel debridement
watchman procedure
Allergy History:
cat dander Allergy (Verified 07/10/24 22:16)
ASTHMA/SOB
levofloxacin [From Levaquin Leva-Carlos] Allergy (Verified 07/10/24 22:16)
Hives
Penicillins Allergy (Verified 07/10/24 22:16)
Shortness of Breath
piperacillin Allergy (Verified 07/10/24 22:16)
Anaphylaxis, acute hypoxemic resp f, hypotensitching 01/25/24
Sulfa (Sulfonamide Antibiotics) Allergy (Verified 07/10/24 22:16)
Hives
vancomycin [Vancomycin] Allergy (Verified 07/10/24 22:16)
Rash/red tino syndrome
Medications Reviewed: Yes
Social History
Tobacco: Former Smoker
Alcohol: Former
Drug: None
Family History
Family History: Not Pertinent
Review of Systems
Vital Signs
Temp Pulse Resp BP Pulse Ox
97.3 F 112 18 109/64 98
08/20/24 11:49 08/20/24 11:49 08/20/24 11:49 08/20/24 11:49 08/20/24 11:49
Physical Exam
Physical Exam
Constitutional: No Acute Distress, Chronically Ill and Obese
Cardiovascular: Regular Rate and S1/S2; Negative Murmur or Rub
Pulmonary: Clear and Symmetric; Negative Wheezes, Rales or Rhonchi
Gastrointestinal: Soft, Non Tender, Non Distended and Normal Bowel Sounds
Skin: Warm and Dry; Negative Rash or Jaundice
Lab / Diagnostic Study Results
08/20/24 06:19
08/20/24 06:19
Abs Immat Gran (auto) 0.1 10^3/uL (0-0.05) H 08/19/24 11:09
Absolute Neuts (auto) 18.1 10^3/uL (1.4-6.5) H 08/19/24 11:09
Absolute Lymphs (auto) 0.3 10^3/uL (1.2-3.4) L 08/19/24 11:09
Absolute Monos (auto) 0.3 10^3/uL (0.1-0.6) 08/19/24 11:09
Absolute Basos (auto) 0.1 10^3/uL (0-0.2) 08/19/24 11:09
Immature Gran % 0.7 % (0-0.5) H 08/19/24 11:09
Neutrophils % 95.8 % (42.2-75.2) H 08/19/24 11:09
Lymphocytes % 1.6 % (20.5-51.1) L 08/19/24 11:09
Monocytes % 1.3 % (1.7-9.3) L 08/19/24 11:09
Eosinophils % 0.3 % (0-6) 08/19/24 11:09
Basophils % 0.3 % (0-2) 08/19/24 11:09
Lactic Acid 1.7 mmol/L (0.7-2.0) 08/19/24 22:52
Ur Squamous Epith Cells >30 /LPF (Few) 08/19/24 11:09
Microbiology Results
Micro:
08/19/24 11:08 Blood Culture - Preliminary
Blood/Venous No Growth in 24 hours- Final report to follow
08/19/24 11:08 Blood Culture - Preliminary
Blood/Venous No Growth in 24 hours- Final report to follow
08/20/24 07:02 MRSA Screen - Pending
Nose
08/19/24 11:09 Urine Culture - Pending
Urine
Assessment / Plan
Mild Cellulitis
Chronic Lymphedema
Stated allergies to: penicillin - short of breath, zosyn - anaphylaxis, levaquin hives, sulfa hives, vancomycin red man
- mrsa screen pending
- blood cultures x2 in progress,
- ua with pyuria
- urine culture pending - follow up
- c/w compression with tubigrip
- trial of adding SCDs
- c/w meropenem
- note that she has previously tolerated linezolid
- pending urine culture, there is a possibility that she may require home IV antibiotics
- doesnt have a port yet but is planned for one
[2024-08-20] MEDS: MERREM 500 MG IV ×2 (13:26→17:17)
[2024-08-20] MEDS: LANOXIN 125 MCG PO (13:27)
[2024-08-20] MEDS: STERILE WATER FOR INJECTION 10 ML IV ×2 (13:27→17:18)
[2024-08-20] MEDS: NOVOLOG FLEXPEN-LOW RESISTANCE 2 UNITS SC (13:28)
[2024-08-20] MEDS: LASIX 40 MG PO (13:28)
[2024-08-20 14:13] LABS: Glucose - Point of Care 229 mg/dl (70-99)
[2024-08-20 14:13] LABS: Glucose - Point of Care 218 mg/dl (70-99)
--- NOTE | 2024-08-20 15:03 | PN.CDI ---
CDI
- -
CDI:
Physician Documentation Request
Admit Date: 08/19/24 17:18
Dear Doctor Najma,
Please review the following and provide your response in the progress notes.
Clinical Indicators:
08/20/24 11:55 (created 08/20/24 12:20) - Wound Note
#Wound Location and type/assessment:
#...R heel healing stage 3 PI, much smaller compared to last seen,
#...base pink but 0.5cm depth.
#...L heel with healing stage 4 PI, base pink mixed with palomo slough,
#....MASD and stage 2 PI gluteal cleft in past,
#...nurse Eugenia said its the same, foam in use.
Physician documentation of the type and location of wounds is required for compliant documentation. Based on the above clinical findings and your assessment, please provide the following in your progress note:
Yes, right heel healing stage 3 PI, left heel healing stage 4, sacrum (gluteal cleft) stage 2 PI, POA
No, pressure injury/injuries
Other (please specify)
1. Location of the ulcer/wound, including laterality.
2. Type (etiology) of ulcer/wound:
- Diabetic ulcer
- Traumatic wound
- Pressure (decubitus) ulcer
3. If a pressure ulcer, please also include the stage* of the ulcer:
- Stage 1 - Skin intact, non-blanchable redness
- Stage 2 - Partial thickness loss of dermis, includes intact or open blister
- Stage 3 - Full thickness tissue not including bone, tendon or muscle
- Stage 4 - Full thickness tissue loss, including exposed bone, tendon or muscle
- Unstageable - Full thickness loss in which the base of the ulcer is covered by slough (yellow, platt, watts, green or brown) and/or eschar (platt, brown or black) in the wound bed.
Use of terms such as suspected, likely, concern for, or probable (associated with a specific diagnosis that is being evaluated, monitored, or treated as if it exists) are acceptable and can be coded in the inpatient setting, when documented at the
time of discharge.
Thank you,
Justine Sun RN BSN CCDS
CDI Specialist
please contact via tiger text
Please use your independent medical judgment in providing your response.
*Source: National Pressure Ulcer Advisory Panel (NPUAP)
--- NOTE | 2024-08-20 15:33 | CM ---
CM met with pt and her extended family
Pt resides with her son and his family in a 2SH with ramp entrance
Pt has 1st floor set up
Pt able to ambulates short distances, a few steps with use of a WW
Pt has a hospital bed, WC, O2 throug [place] (use as needed)
Pt mostly bed/recline/WC bound
She has a CAPACITY PLANNING ANALYST 4x weekly from 8am-2Pm for personal care
Family provided care when CAPACITY PLANNING ANALYST is not present
Pt is current with [facility]
PCP- Betsy Heard
Rx- [facility]
SNF vs VN recs
Pt notes prior poor experience with SNF
Plan for dc home with [facility]
Referral sent and pending
Discharge Disposition- home with [facility]
[2024-08-20 16:57] LABS: Glucose - Point of Care 317 mg/dl (70-99)
[2024-08-20] MEDS: NOVOLOG FLEXPEN-LOW RESISTANCE 4 UNITS SC (17:16)
[2024-08-20] MEDS: LOVENOX 40 MG SC (17:17)
[2024-08-20 22:11] LABS: Glucose - Point of Care 300 mg/dl (70-99)
[2024-08-20] MEDS: LANTUS 0.03 UNITS SC (22:15)
[2024-08-20] MEDS: TRICOR 48 MG PO (22:16)
[2024-08-20] MEDS: LIPITOR 40 MG PO (22:16)
[2024-08-20] MEDS: ZOLOFT 50 MG PO (22:16)
[2024-08-21] MEDS: STERILE WATER FOR INJECTION 10 ML IV ×4 (00:20→17:22)
[2024-08-21] MEDS: MERREM 500 MG IV ×4 (00:20→17:21)
[2024-08-21 03:40] VITALS: BP 110/60
--- NOTE | 2024-08-21 05:47 | DOWNTIME ---
There was a [employer] Client Chief Media Officer Downtime on 08/21/2024 from 0100 to 08/22/2023 at 0420 . Downtime documentation of patient's care, including medication administrations, has been reconciled in the electronic record per guidelines. Refer to the
patient's paper chart under the miscellaneous tab to see printed paper medication records and downtime forms.
[2024-08-21 06:00] VITALS: BMI 42.9
[2024-08-21] MEDS: SYNTHROID 125 MCG PO (06:05)
[2024-08-21 06:31] LABS: Hematocrit 28.4 % (37.0-47.0); Hemoglobin 8.9 g/dL (12.0-16.0); Mean Corp Hgb Conc. 31.3 g/dL (33.0-37.0); Mean Corpuscular Hgb 25.6 pg (27.0-31.0); Mean Corpuscular Volume 81.8 fL (81.0-99.0); Mean Platelet Volume 9.5 fL (7.4-10.4); Platelet Count 245 10^3/uL (130-400); Red Blood Cell Count 3.47 10^6/uL (4.20-5.40); Red Cell Dist. Width 19.4 % (11.5-14.5); White Blood Cell Count 8.8 10^3/uL (4.8-10.8)
[2024-08-21 06:49] LABS: Blood Urea Nitrogen 39 mg/dl (7-17); Calcium 8.7 mg/dl (8.4-10.2); Carbon Dioxide 32 mmol/L (22-30); Chloride 96 mmol/L (98-107); Estimated Creatinine Clearance 55 ml/min; Glucose 149 mg/dl (70-99); Magnesium 2.1 mg/dl (1.6-2.3); Potassium 3.5 mmol/L (3.5-5.1); Sodium 136 mmol/L (135-145)
[2024-08-21 07:55] VITALS: BP 97/53
[2024-08-21] MEDS: KCL 40 MEQ PO (08:04)
[2024-08-21 08:06] LABS: Glucose - Point of Care 161 mg/dl (70-99)
[2024-08-21] MEDS: CALAN EXTENDED RELEASE 240 MG PO (08:06)
[2024-08-21] MEDS: ZYLOPRIM 100 MG PO (08:07)
[2024-08-21] MEDS: SINGULAIR 10 MG PO (08:08)
[2024-08-21] MEDS: PROTONIX 40 MG PO (08:08)
[2024-08-21] MEDS: THERAGRAN 1 TABLET PO (08:08)
[2024-08-21] MEDS: ASPIR LOW (ENTERIC COATED) 81 MG PO (08:08)
[2024-08-21] MEDS: LASIX PO (08:09)
[2024-08-21] MEDS: SANTYL OINTMENT 1 APPLIC TOPICAL (08:09)
[2024-08-21] MEDS: TOPROL XL PO (08:11)
[2024-08-21] MEDS: NOVOLOG FLEXPEN-LOW RESISTANCE 1 UNITS SC (08:13)
--- NOTE | 2024-08-21 10:30 | WOUNDNOTE ---
BON RN NOTE: Followed up with patient to assess sacrum, patient sitting on Commode. With assist from 2 PCT's and RN Danish, patient transferred to recliner chair, air cushion in use. Gluteal cleft with healing stage 2 PI vs MASD, sacral silicone
foam applied. Air overlay applied to bed, PCT aware to inflate when able. Legs elevated in recliner chair with heels offloaded. Did not see offloading heel boots in rm, will double check with nurse if family still bringing in or I will order from
[facility]. Will follow as needed.
--- NOTE | 2024-08-21 10:44 | WOUNDNOTE ---
BON RN NOTE ADDENDUM: Called [facility] for TruVue lite offloading heel boots, nurse will apply when back to bed and aware to inflate air overlay.
--- NOTE | 2024-08-21 10:54 | W.PN.HOSP.TC ---
Addendum entered and electronically signed by Jory Yao MD 08/21/24 12:16:
# R heel healing stage 3 PI POA
# L heel stage 4 PI POA
Original Note:
Today's Communication/Plan
-
see A/P
Assessment / Plan
Assessment / Plan
HPI: 73-year-old female with past medical history significant for right brain tumor s/p craniotomy 2 years ago, essential hypertension, hyperlipidemia, permanent atrial fibrillation, CKD III, hypothyroidism, DM II, CAD, GERD and CHF; who presented
to [facility] ED for evaluation of worsening cellulitis in left lower extremity.
Patient reports recurrent lower extremity cellulitis that has gotten increasingly worse over the past few days and in the morning on DOA was associated with some disorientation and hypoxia in the 80s. Patient denies use of oxygen at home but is
requiring 4L via NC to maintain SpO2 >93%. Patient states she feels she had a fever, but never took temperature at home, she said the sensation of fever was accompanied by the chills.
She states that she has had UTI symptoms that they have been attempting to treat outpatient but continues with symptoms despite using two different prescribed treatments.
Patient denies any cough, shortness of breath, chest pain, constipation or diarrhea.
A/P:
# sepsis POA likely 2/2 LLE cellulitis
# Hx lymphedema
# Hx recurrent BL LE cellulitis
# Hx BL heel wounds
BL LE US: No sonographic evidence for lower extremity venous thrombosis. Bilateral groin soft tissue masses probably abnormal lymph nodes. Prior PET scan showed uptake in the bilateral groin soft tissue masses likely representing malignancy. Grossly
stable on the left. Enlarged on the right.
Cont IV Meropenem (hx multiple Abx allergies)
blood cultures so far negative, urine culture no growth
Appreciate ID input
Appreciate wound care input
Podiatry CS
# non-Hodgkin lymphoma
pending outpt Rx, outpt Onc Dr [place]
Pt aware of inguinal LN
# CKD III
Creat at 1.1 today, baseline 0.9
# HFpEF
continue digoxin, furosemide, metoprolol, and verapamil with holding parameter
Hold MINE MANAGER spironolactone
PRN oxygen to maintain SpO2 >93%, wean as able
# Acute hypoxic respiratory insufficiency
Pt placed on 4L NC, wean as tolerated, she is not on home O2
Check CXR, VQ scan (underlying NHL pending Rx)
# essential hypertension
continue furosemide, metoprolol with holding parameter
Hold MINE MANAGER spironolactone
# hyperlipidemia
continue atorvastatin and fenofibrate
# permanent atrial fibrillation, s/p watchman
continue metoprolol
# hypothyroidism
continue levothyroxine
# DM II
AccuCheck AC & HS
SSI
continue Lantus 3 units HS
hold metformin
# CAD
continue aspirin, atorvastatin and fenofibrate
# GERD
continue pantoprazole
# asthma
continue albuterol and Advair
continue montelukast
# gout
continue allopurinol
# depression/anxiety
continue sertraline
# iron deficient anemia
Code status: Full code
DVT prophylaxis: Lovenox Sq
Dispo: PT eval recc HH vs SNF
DW RN
total time 51 min
Anticipated Discharge: > 48 hours
Subjective/Interval History
-
Date of Service: August 21, 2024
Objective Data
-
Labs:
Laboratory Results
08/21/24 08/21/24
05:49 05:50
WBC 8.8
Hgb 8.9 L
Hct 28.4 L
Plt Count 245
Sodium 136
Potassium 3.5
Chloride 96 L
Carbon Dioxide 32 H
BUN 39 H
Creatinine 1.1 H
Glucose 149 H
Calcium 8.7
Vital Signs:
Vital Signs
Temp Pulse Resp BP Pulse Ox
36.4 C 79 18 97/53 100
08/21/24 07:55 08/21/24 08:11 08/21/24 07:55 08/21/24 08:11 08/21/24 07:55
I&O
08/20/24 08/21/24 08/22/24
06:59 06:59 06:59
Intake Total 480 / 480 600 / 600
Balance 480 / 480 600 / 600
Review of Systems
-
All other systems: Reviewed and negative
Physical Exam
-
General: Well Developed, Well Nourished, Comfortable, Conversant, Appears Chronically Ill and Morbidly Obese
HEENT: Normocephalic, Atraumatic, Anicteric and Oxygen (4L NC)
Respiratory: Clear to Auscultation and Non Labored Respirations; Negative Wheezes, Rales, Rhonchi or Accessory Resp Muscle Use
Cardiac: S1/S2, Irregular Rhythm and Other (Bilateral peripheral edema (chronic venous stasis))
GI: Soft, Nontender, Nondistended and Normal Bowel Sounds
Musculoskeletal: No Clubbing, No Cyanosis, Edema, Right Lower Extrem and Edema, Left Lower Extrem
Skin: Warm and Dry
Neuro: Awake, Alert and Oriented
Psych: Calm and Intact Judgement/Insight
Data Reviewed
-
CT Scan: Report Reviewed by me
Labs: Labs Reviewed by me
[2024-08-21 11:08] VITALS: BP 105/49
--- NOTE | 2024-08-21 11:46 | W.PN.ID1 ---
Date of Service
Date of Service: August 21, 2024
Today's Communication
- tomorrow can switch to linezolid 600 mg po bid to complete 7 day course 08/20-08/26
Assessment / Plan
Mild Cellulitis
Chronic Lymphedema
Stated allergies to: penicillin - short of breath, zosyn - anaphylaxis, levaquin hives, sulfa hives, vancomycin red man
- mrsa screen negative
- blood cultures x2 in progress no growth to date
- ua with pyuria, urine culture finalized negative
- c/w compression with tubigrip
- c/w meropenem today
- tomorrow can switch to linezolid 600 mg po bid to complete 7 day course 08/20-08/26
- note that she has previously tolerated linezolid and sertraline 50 mg without adverse effect
Chief Complaint
-: Cellulitis
Subjective / Review of Systems
afebrile
bp stable
tolerating current therapies
lymphedema persists, rash much improved
Vital Signs / Physical Exam
Vital Signs
Vital Signs
Temp Pulse Resp BP Pulse Ox
98.1 F 72 20 105/49 93
08/21/24 11:08 08/21/24 11:08 08/21/24 11:08 08/21/24 11:08 08/21/24 11:32
Physical Exam
Constitutional: No Acute Distress, Chronically Ill and Obese
Cardiovascular: Regular Rate and S1/S2; Negative Murmur or Rub
Pulmonary: Clear and Symmetric; Negative Wheezes, Rales or Rhonchi
Gastrointestinal: Soft, Non Tender, Non Distended and Normal Bowel Sounds
Skin: Warm, Dry and Rash (minimal erythema of the left lower extremity); Negative Jaundice
Objective Data
Lab Data
Lab Results
08/21/24 05:49
08/21/24 05:50
Estimated Creat Clear 55 ml/min 08/21/24 05:50
Lactic Acid 1.7 mmol/L (0.7-2.0) 08/19/24 22:52
Total Bilirubin 1.0 mg/dl (0.2-1.3) 08/19/24 11:09
AST 16 U/L (14-36) 08/19/24 11:09
ALT 10 U/L (0-35) 08/19/24 11:09
Alkaline Phosphatase 95 U/L (38-126) 08/19/24 11:09
Most recent labs reviewed.
Micro Results:
08/19/24 11:08 Blood Culture - Preliminary
Blood/Venous No Growth in 48 hours- Final report to follow
08/19/24 11:08 Blood Culture - Preliminary
Blood/Venous No Growth in 48 hours- Final report to follow
08/20/24 07:02 MRSA Screen - Final
Nose No Methicillin Resistant Staphylococcus aureus isolated.
08/19/24 11:09 Urine Culture - Final
Urine NO GROWTH
[2024-08-21 12:17] LABS: Glucose - Point of Care 236 mg/dl (70-99)
[2024-08-21] MEDS: NOVOLOG FLEXPEN-LOW RESISTANCE 2 UNITS SC ×2 (12:35→16:09)
[2024-08-21] MEDS: LASIX 40 MG PO (12:36)
[2024-08-21] MEDS: LANOXIN 125 MCG PO (12:36)
[2024-08-21 15:39] VITALS: BP 119/53
[2024-08-21 16:01] LABS: Glucose - Point of Care 217 mg/dl (70-99)
[2024-08-21] MEDS: LASIX 60 MG PO (16:09)
--- NOTE | 2024-08-21 16:45 | W.CS.POD ---
Consult Summary - Podiatry
-
73 year old female with recent diagnosis of non Hodgkin's Lymphoma, PMH for atrial fib, asthma, CAD, CHF, HTN, HLD, IDDM, VT, hypothyroidism, lymphedema presented to the hosp with fever, chills. she is known to my practice very well, Shevhad
multiple times heel ulcerations and had lengthy healing process and she eventually healed but the last heel ulceration and osteomyelitis of LT heel, with heel debridement in Jan 2024, was on long-term IV abx and rehab, vascular work up done last
year 2023 , healing slowly, now she has no drainage from RT heel, has serous drainage from LT heel. She has wound care and her DIL doing her at home dressings
patient has chronic lymphedema, non compliant in using any compression therapy. denied chest pain, sob,
Improved WBC count WNL
Exam : B/L lower legs with chronic indurated lymphedema
b/l feet pink, warm, good CFT. well perfused
B/L heel ulcerations healing slowly
no drainage RT heel, , clean, granular base, no exposed bone, no deep tunneling noted.
LT heel with superficial granular ulceration, serous drainage, no deep tunneling noted, no necrosis, no palpable bone
A/P: Resolved LT lower leg cellultis
Chronic Lymphedema b/l lower legs
diabetic heel ulcerations stable
Resolved hypoxia
Plan : ;IV abx per ID
Will cont with local wound care to b/l heels daily once with dry, gauze, shari to Rt heel and compressions to lower legs.
Left heel alginate and dry gauze dressings.
compressions to lower legs with Tubigrip stockings
Heel relief boots when she is in bed at all times
She will f/u in my office in 2 -3 wks after discharge .
No surgical intervention by podiatry
[2024-08-21] MEDS: LOVENOX 40 MG SC (17:20)
[2024-08-21 19:26] VITALS: BP 131/53
[2024-08-21 20:26] LABS: Glucose - Point of Care 295 mg/dl (70-99)
[2024-08-21] MEDS: TRICOR 48 MG PO (21:05)
[2024-08-21] MEDS: LIPITOR 40 MG PO (21:05)
[2024-08-21] MEDS: ZOLOFT 50 MG PO (21:05)
[2024-08-21] MEDS: LANTUS 0.03 UNITS SC (21:06)
[2024-08-21 23:41] VITALS: BP 124/56
[2024-08-22 03:09] VITALS: BP 128/60
[2024-08-22] MEDS: STERILE WATER FOR INJECTION IV ×3 (05:14→12:54)
[2024-08-22] MEDS: SYNTHROID 125 MCG PO (05:34)
[2024-08-22] MEDS: ZYVOX 600 MG PO ×2 (05:34→07:49)
[2024-08-22 05:42] VITALS: BMI 43.3
[2024-08-22 06:17] LABS: Hematocrit 27.7 % (37.0-47.0); Hemoglobin 8.8 g/dL (12.0-16.0); Mean Corp Hgb Conc. 31.8 g/dL (33.0-37.0); Mean Corpuscular Hgb 25.8 pg (27.0-31.0); Mean Corpuscular Volume 81.2 fL (81.0-99.0); Mean Platelet Volume 9.6 fL (7.4-10.4); Platelet Count 262 10^3/uL (130-400); Red Blood Cell Count 3.41 10^6/uL (4.20-5.40); Red Cell Dist. Width 19.1 % (11.5-14.5); White Blood Cell Count 7.4 10^3/uL (4.8-10.8)
[2024-08-22 06:43] LABS: Blood Urea Nitrogen 35 mg/dl (7-17); Calcium 8.5 mg/dl (8.4-10.2); Carbon Dioxide 30 mmol/L (22-30); Chloride 99 mmol/L (98-107); Estimated Creatinine Clearance 65 ml/min; Glucose 154 mg/dl (70-99); Sodium 134 mmol/L (135-145); eGFR > 60.00
[2024-08-22 07:09] VITALS: BP 116/53
[2024-08-22] MEDS: ASPIR LOW (ENTERIC COATED) 81 MG PO (07:49)
[2024-08-22] MEDS: SINGULAIR 10 MG PO (07:49)
[2024-08-22] MEDS: ZYLOPRIM 100 MG PO (07:49)
[2024-08-22] MEDS: THERAGRAN 1 TABLET PO (07:49)
[2024-08-22] MEDS: PROTONIX 40 MG PO (07:49)
[2024-08-22] MEDS: CALAN EXTENDED RELEASE 240 MG PO (07:49)
[2024-08-22] MEDS: LASIX 60 MG PO (07:49)
[2024-08-22] MEDS: TOPROL XL 25 MG PO (07:49)
[2024-08-22] MEDS: SANTYL OINTMENT TOPICAL (07:50)
[2024-08-22 07:59] LABS: Glucose - Point of Care 161 mg/dl (70-99)
[2024-08-22] MEDS: NOVOLOG FLEXPEN-LOW RESISTANCE 1 UNITS SC (09:05)
--- NOTE | 2024-08-22 11:02 | W.PN.HOSP.TC ---
Addendum entered and electronically signed by Jory Yao MD 08/22/24 13:17:
total DC time 38 min
Original Note:
Today's Communication/Plan
-
see A/P
Assessment / Plan
Assessment / Plan
HPI: 73-year-old female with past medical history significant for right brain tumor s/p craniotomy 2 years ago, essential hypertension, hyperlipidemia, permanent atrial fibrillation, CKD III, hypothyroidism, DM II, CAD, GERD and CHF; who presented
to [facility] ED for evaluation of worsening cellulitis in left lower extremity.
Patient reports recurrent lower extremity cellulitis that has gotten increasingly worse over the past few days and in the morning on DOA was associated with some disorientation and hypoxia in the 80s. Patient denies use of oxygen at home but is
requiring 4L via NC to maintain SpO2 >93%. Patient states she feels she had a fever, but never took temperature at home, she said the sensation of fever was accompanied by the chills.
She states that she has had UTI symptoms that they have been attempting to treat outpatient but continues with symptoms despite using two different prescribed treatments.
Patient denies any cough, shortness of breath, chest pain, constipation or diarrhea.
A/P:
# sepsis POA likely 2/2 LLE cellulitis
# Hx lymphedema
# Hx recurrent BL LE cellulitis
# Hx BL heel wounds
BL LE US: No sonographic evidence for lower extremity venous thrombosis. Bilateral groin soft tissue masses probably abnormal lymph nodes. Prior PET scan showed uptake in the bilateral groin soft tissue masses likely representing malignancy. Grossly
stable on the left. Enlarged on the right.
IV Meropenem (hx multiple Abx allergies) -> PO linezolid 600 mg po bid to complete 7 day course 08/20-08/26
blood cultures x2 negative, urine culture no growth
Appreciate ID input
Appreciate wound care input
Appreciate podiatry input, no surgical intervention needed at this time
# non-Hodgkin lymphoma
pending outpt Rx, outpt Onc Dr Mejía
Pt aware of inguinal LN
# CKD III
Creat at 0.9 today, baseline at 0.9
# HFpEF
# essential hypertension
continue digoxin, furosemide, metoprolol, and verapamil with holding parameter
resume WOUND CARE NURSE spironolactone after DC
PRN oxygen to maintain SpO2 >93%, wean as able
# Acute hypoxic respiratory insufficiency, resolved
4L NC weaned back to RA, she is not on home O2
CXR, VQ scan unrevealing
# hyperlipidemia
continue atorvastatin and fenofibrate
# permanent atrial fibrillation, s/p watchman
continue metoprolol
# hypothyroidism
continue levothyroxine
# DM II
AccuCheck AC & HS
SSI
continue Lantus 3 units HS
hold metformin while in hospital
# CAD
continue aspirin, atorvastatin and fenofibrate
# GERD
continue pantoprazole
# asthma
continue albuterol and Advair
continue montelukast
# gout
continue allopurinol
# depression/anxiety
continue sertraline
# iron deficient anemia
Code status: Full code
DVT prophylaxis: Lovenox Sq
Dispo: PT eval recc HH vs SNF . Pt declined SNF, prefers HH
DW RN
DW son on the phone
Anticipated Discharge: Today
Subjective/Interval History
-
Date of Service: August 22, 2024
Objective Data
-
Labs:
Laboratory Results
08/22/24
05:29
WBC 7.4
Hgb 8.8 L
Hct 27.7 L
Plt Count 262
Sodium 134 L
Potassium 4.0
Chloride 99
Carbon Dioxide 30
BUN 35 H
Creatinine 0.9
Glucose 154 H
Calcium 8.5
Vital Signs:
Vital Signs
Temp Pulse Resp BP Pulse Ox
36.6 C 89 16 116/53 94
08/22/24 07:09 08/22/24 07:49 08/22/24 07:09 08/22/24 07:49 08/22/24 10:18
I&O
08/21/24 08/22/24 08/23/24
06:59 06:59 06:59
Intake Total 600 / 600
Balance 600 / 600
Review of Systems
-
All other systems: Reviewed and negative
Physical Exam
-
General: Well Developed, Well Nourished, Comfortable, Conversant, Appears Chronically Ill and Morbidly Obese
HEENT: Normocephalic, Atraumatic and Anicteric
Respiratory: Clear to Auscultation and Non Labored Respirations; Negative Wheezes, Rales, Rhonchi or Accessory Resp Muscle Use
Cardiac: S1/S2, Irregular Rhythm and Other (Bilateral peripheral edema (chronic venous stasis))
GI: Soft, Nontender, Nondistended and Normal Bowel Sounds
Musculoskeletal: No Clubbing, No Cyanosis, Edema, Right Lower Extrem and Edema, Left Lower Extrem
Skin: Warm and Dry
Neuro: Awake, Alert and Oriented
Psych: Calm and Intact Judgement/Insight
Data Reviewed
-
CT Scan: Report Reviewed by me
Labs: Labs Reviewed by me
[2024-08-22 11:20] VITALS: BP 109/52
[2024-08-22] MEDS: LANOXIN 125 MCG PO (12:46)
[2024-08-22] MEDS: LASIX 40 MG PO (12:46)
[2024-08-22 12:49] LABS: Glucose - Point of Care 238 mg/dl (70-99)
[2024-08-22] MEDS: NOVOLOG FLEXPEN-LOW RESISTANCE 2 UNITS SC (12:49)
--- NOTE | 2024-08-22 12:53 | W.DCSUMMARY ---
Discharge Summary
Discharge Data
Date of Admission: 08/19/24
Date of Discharge: 08/22/24
-
Pending Results: No
Hospital Course
Principal Diagnosis:
Sepsis on admission due to left lower extremity (LLE) cellulitis
Chronic Diagnoses:�
Chronic bilateral lower extremity lymphedema
Chronic bilateral heel wounds
Non-Hodgkin lymphoma, pending outpatient treatment
Chronic kidney disease stage III
Heart failure with preserved ejection fraction
Essential hypertension
Hyperlipidemia
Permanent atrial fibrillation, status post watchman
Hypothyroidism on levothyroxine
Insulin-dependent diabetes
Coronary artery disease
GERD
Asthma
Gout on allopurinol
Depression/anxiety, on sertraline
Iron deficient anemia
Consultations:�
Infectious disease
Podiatry
Wound care
Procedures:�
None
Clinical course:�
This is a 73-year-old female with past medical history stated as above who presented with worsening rash and swelling in her left lower extremity.
Problem 1:
Sepsis on admission due to left lower extremity cellulitis.
Her bilateral lower extremity ultrasound showed no evidence of DVT.
Her blood cultures x2 were negative. Her urine culture was negative.
She received IV antibiotic Merrem while in the hospital, and was discharged with oral linezolid 600 mg twice daily to complete 7 day course 08/20-08/26.
As for the rest of her medical problems, they were stable during her hospital stay.
Discharge Plan
-
Patient Disposition: Home with Home Care
Discharge Diagnosis/Procedures: left leg cellulitis in setting of chronic bilateral lymphedema;
non-Hodgkin lymphoma
Condition: Fair
Diet: As tolerated
Activity: As tolerated
Driving Restrictions: As prior to admission
Wound Care: Wound Care Instructions
Heels: clean with saline, skin prep periwound, Santyl, adaptic and dry dressing, change daily and prn drainage.
Offloading heel boots when in bed
Tubigrip F knee high both legs daily, remove at hs.
Leg elevation when sitting
Sacrum: silicone foam or barrier cream daily
frequent turning while in bed
offloading cushion when sitting
Follow up with Breast Worker.
Referrals:
Betsy Heard NP [Family Provider] - in less than 1 week
Additional Discharge Medication Instructions: Continue linezolid 600 mg twice daily to complete 7 day course 08/20-08/26
Prescriptions:
New
linezolid 600 mg Tablet
600 mg PO BID 7 Days Qty: 14 0RF
Continued
albuterol sulfate 1 PUFF HFA aerosol inhaler
2 puff inhalation R Q4HPRN PRN (Reason: sob/wheezing)
atorvastatin 40 MG tablet
40 mg PO HS
fenofibrate nanocrystallized 48 MG tablet
48 mg PO HS
pantoprazole 40 MG tablet,delayed release (DR/EC)
40 mg PO DAILY
sertraline 50 MG tablet
50 mg PO HS
montelukast 10 MG tablet
10 mg PO DAILY
fluticasone propion-salmeterol [Advair Diskus] 250-50 mcg/dose Blister With Device
1 inh INHALATION R DAILYPRN PRN (Reason: sob/wheezing)
spironolactone 25 mg Tablet
25 mg PO DAILY
levothyroxine [Synthroid] 125 mcg Tablet
125 mcg PO DAILY
digoxin 125 mcg (0.125 mg) Tablet
125 mcg PO DAILY
verapamil 240 mg capsule,ext rel. pellets 24 hr
240 mg PO DAILY
metoprolol succinate 25 mg Tablet Extended Release 24 Hr
25 mg PO DAILY Qty: 30 0RF
therapeutic multivitamin Tablet
1 tab PO DAILY
furosemide 80 mg Tablet
60 mg PO BID
furosemide 80 mg Tablet
40 mg PO NOON
metformin 500 mg Tablet Extended Release 24 Hr
1,000 mg PO BID
insulin glargine [Lantus U-100 Insulin] 100 unit/mL solution
3 unit SC HS
Patient Comments:
patient reports she no longer takes lantus, last time was towards the end of July
aspirin 81 mg tablet,delayed release (DR/EC)
81 mg PO DAILY
estradiol 0.01 % (0.1 mg/gram) Cream
1 appful vaginal MoWeFr@2200 Qty: 42.5 0RF
allopurinol 100 mg tablet
100 mg PO DAILY Qty: 30 0RF
Santyl 250 unit/gram ointment
1 applic topical DAILY
zolpidem [Ambien CR] 12.5 mg Tablet,Ext Release Multiphase
12.5 mg PO HSPRN PRN (Reason: sleep)
sennosides [Stacey-yaya] 8.6 mg tablet
8.6 mg PO BIDPRN PRN (Reason: constipation)
Discharge Orders:
Discharge Patient (As Directed); Ordered 08/22/24
Ordered By: Jory Yao
Discharge Date and Time
Print Language: JAPANESE
--- NOTE | 2024-08-22 13:54 | CM ---
MD entered order for discharge.
PT indicated SNF vs HOME WITH VN .
Reviewed evals with son Amanuel . He said she had a bad experience with SNF.
Son said he will resume care givers at home. As per care port [facility] accepted her.
Son said he will transport pt home.
[facility]An Home with [facility] fax [phone]
[2024-08-22 13:55] VITALS: BP 113/50
== END 2024-08-22 14:38 | disposition home health service (06) | DRG 871 ==
LOC: 3 WEST ACU 17:18
PROVIDERS: Nurse Practitioner Family; ADMITTING PHYSICIAN Internal Medicine; ATTENDING PHYSICIAN Internal Medicine; CONSULT PHYSICIAN Podiatrist Foot & Ankle Surgery; EMERGENCY PHYSICIAN Student in an Organized Health Care Education/Training Program; FAMILY PHYSICIAN Internal Medicine; OTHER PHYSICIAN Student in an Organized Health Care Education/Training Program
DX: A41.9 Sepsis, unspecified organism (principal); L89.613 Pressure ulcer of right heel, stage 3; L89.624 Pressure ulcer of left heel, stage 4; L03.116 Cellulitis of left lower limb; C85.90 Non-Hodgkin lymphoma, unspecified, unspecified site; I13.0 Hypertensive heart and chronic kidney disease with heart failure and stage 1 through stage 4 chronic kidney disease, or unspecified chronic kidney disease; I50.32 Chronic diastolic (congestive) heart failure; I48.21 Permanent atrial fibrillation; N17.9 Acute kidney failure, unspecified; Z68.41 Body mass index [BMI] 40.0-44.9, adult; M86.9 Osteomyelitis, unspecified; I89.0 Lymphedema, not elsewhere classified; N18.30 Chronic kidney disease, stage 3 unspecified; E11.22 Type 2 diabetes mellitus with diabetic chronic kidney disease; Z79.4 Long term (current) use of insulin; E03.9 Hypothyroidism, unspecified; Z95.818 Presence of other cardiac implants and grafts; I25.10 Atherosclerotic heart disease of native coronary artery without angina pectoris; K21.9 Gastro-esophageal reflux disease without esophagitis; E11.42 Type 2 diabetes mellitus with diabetic polyneuropathy; M10.9 Gout, unspecified; F32.9 Major depressive disorder, single episode, unspecified; F41.9 Anxiety disorder, unspecified; D50.9 Iron deficiency anemia, unspecified; E78.00 Pure hypercholesterolemia, unspecified; R09.02 Hypoxemia; G47.30 Sleep apnea, unspecified; I27.21 Secondary pulmonary arterial hypertension; Z87.442 Personal history of urinary calculi; Z90.49 Acquired absence of other specified parts of digestive tract; Z87.891 Personal history of nicotine dependence; Z88.0 Allergy status to penicillin; Z88.2 Allergy status to sulfonamides; Z79.82 Long term (current) use of aspirin; Z79.84 Long term (current) use of oral hypoglycemic drugs; Z79.51 Long term (current) use of inhaled steroids; Z79.890 Hormone replacement therapy; Z79.899 Other long term (current) drug therapy; Z86.011 Personal history of benign neoplasm of the brain; J44.89 Other specified chronic obstructive pulmonary disease; Z88.1 Allergy status to other antibiotic agents; Z99.3 Dependence on wheelchair; E66.813 Obesity, class 3; E11.51 Type 2 diabetes mellitus with diabetic peripheral angiopathy without gangrene; E11.621 Type 2 diabetes mellitus with foot ulcer; G40.909 Epilepsy, unspecified, not intractable, without status epilepticus; K59.00 Constipation, unspecified; L71.9 Rosacea, unspecified; Z95.5 Presence of coronary angioplasty implant and graft; Z96.612 Presence of left artificial shoulder joint
CPT/HCPCS: 71046; 71275; 73630; 78582; 80048; 80053; 80162; 81003; 81015; 82962; 83036; 83605; 83735; 83880; 85025; 85027; 87040; 87070; 87086; 93005; 93970; 96361; 96374; 97163; 97167; 97530; 97535; 99285; A9540; A9567; J2185; Q9967

== ENCOUNTER → 2024-08-29 10:20 | Outpatient (REF) | payer MEDICARE, SELFPAY ==
[2024-08-29 10:59] VITALS: BP 107/52; BP_SYST 88
[2024-08-29 12:22] VITALS: BP 103/57; BP_SYST 86
[2024-08-29 12:26] VITALS: BP 105/51
[2024-08-29 12:31] VITALS: BP 115/49
[2024-08-29 12:50] VITALS: BP 117/45
== END ==
LOC: RADI 10:20
PROVIDERS: ATTENDING PHYSICIAN Obstetrics & Gynecology Gynecologic Oncology; FAMILY PHYSICIAN Internal Medicine
DX: C83.30 Diffuse large B-cell lymphoma, unspecified site (principal)
CPT/HCPCS: 36561; 76937; 77001; 99152; 99153; C1788

== ENCOUNTER → 2024-09-02 10:43 | Outpatient (REF) | payer MEDICARE, SELFPAY ==
[2024-09-02 12:00] LABS: % Basophils 1.2 % (0-2); % Eosinophils 4.8 % (0-6); % Immature Granulocytes 0.9 % (0-0.5); % Lymphocytes 8.8 % (20.5-51.1); % Monocytes 7.2 % (1.7-9.3); % Neutrophils 77.1 % (42.2-75.2); Absolute Basophils 0.1 10^3/uL (0-0.2); Absolute Eosinophils 0.4 10^3/uL (0-0.7); Absolute Immature Granulocytes 0.1 10^3/uL (0-0.05); Absolute Lymphocytes 0.8 10^3/uL (1.2-3.4); Absolute Monocytes 0.6 10^3/uL (0.1-0.6); Absolute Neutrophils 6.7 10^3/uL (1.4-6.5); Hematocrit 32.6 % (37.0-47.0); Mean Corp Hgb Conc. 30.7 g/dL (33.0-37.0); Mean Corpuscular Hgb 25.8 pg (27.0-31.0); Mean Corpuscular Volume 84.2 fL (81.0-99.0); Mean Platelet Volume 9.1 fL (7.4-10.4); Nucleated Red Blood Cells % 0.6 %; Platelet Count 239 10^3/uL (130-400); Red Blood Cell Count 3.87 10^6/uL (4.20-5.40); Red Cell Dist. Width 18.7 % (11.5-14.5); White Blood Cell Count 8.7 10^3/uL (4.8-10.8)
[2024-09-02 12:40] LABS: ALT (SGPT) < 10 U/L (0-35); AST (SGOT) 15 U/L (14-36); Albumin 3.6 g/dl (3.5-5.0); Alkaline Phosphatase 96 U/L (38-126); Blood Urea Nitrogen 28 mg/dl (7-17); Calcium 9.3 mg/dl (8.4-10.2); Carbon Dioxide 28 mmol/L (22-30); Chloride 104 mmol/L (98-107); Glucose 173 mg/dl (70-99); Potassium 3.8 mmol/L (3.5-5.1); Sodium 145 mmol/L (135-145); Total Bilirubin 0.6 mg/dl (0.2-1.3); Total Protein 6.6 g/dl (6.3-8.2); eGFR 58.75
== END ==
LOC: REG 10:43
PROVIDERS: ATTENDING PHYSICIAN Internal Medicine Hematology & Oncology; FAMILY PHYSICIAN Internal Medicine
DX: R19.04 Left lower quadrant abdominal swelling, mass and lump (principal); I89.0 Lymphedema, not elsewhere classified; D48.19 Other specified neoplasm of uncertain behavior of connective and other soft tissue; I65.21 Occlusion and stenosis of right carotid artery; L03.90 Cellulitis, unspecified; Z86.73 Personal history of transient ischemic attack (TIA), and cerebral infarction without residual deficits; C83.30 Diffuse large B-cell lymphoma, unspecified site
CPT/HCPCS: 36415; 80053; 85025

== ENCOUNTER 2024-09-07 17:24 | Inpatient (IN) | payer MEDICARE, SELFPAY ==
[2024-09-07] VITALS (8 sets, daily range): BP systolic 100–139; BP diastolic 48–71; BMI 43.6; BMI 37.2
--- NOTE | 2024-09-07 13:05 | ED.GENMED ---
History of Present Illness
General
Chief Complaint: Skin Problem
Source: patient and family
Exam Limitations: none
Time Seen by Provider: 09/07/24 11:33
Nursing documentation reviewed up to this point in time: agreed with
History of Present Illness
History of Present Illness:
73-year-old female with extensive medical history as noted who presents to the emergency department for evaluation of left leg swelling. Patient has chronic lymphedema she says but over the past few days started to notice some increased swelling on
the left side and some increasing redness. Started in the lower leg but since has progressed all the way up to her thigh. She saw her primary doctor who referred her to the emergency room to be evaluated for this. She does have some mild pain in
the leg. She has a chronic wound on the left heel which daughter regularly cleans and dresses. She denies any chest pain, shortness of breath. She denies any fevers or chills. She denies any other complaints. She is notably on chemotherapy for
non-Hodgkin's lymphoma, had first 2 treatments this past week.
Past History
Past History
ED Past Medical History: Arrthythmia (Atrial fibrillation), Asthma, CAD, Cancer (Skin, meningioma grade 2 with radiation therapy and craniotomy), CHF, COPD, HTN, Hypercholesterolemia, NIDDM, SC, Hypothyroidism, Psychiatric (Major depression), Other
(PNA, Cellulitis, Chronic Lymphedema, bilateral heel ulcerations, osteomyelitis of the left heel, morbid obesity) and Other (Sepsis, peripheral neuropathy, anemia, rosacea, COVID 19, seizure disorder, pulmonary artery hypertension, nephrolithiasis,
B complex deficiency, prior acute respiratory failure); Negative Renal failure (Stage IIIa)
ED Past Surgical History: Brain (Right frontal craniotomy for meningioma 2022), Cardiac (cardioversion, Stents X 2, Watchman device), Cholecystectomy (1982), Orthopedic (Left reverse shoulder arthroplasty December 2023), Urological (Bladder repair,
kidney stone extraction) and Other (Right femoral artery cannulation January 2024, Mohs surgery forehead 2021)
Social History
Tobacco: Former smoker
Alcohol: Daily (Vodka 1 large glass)
Drug: None
Personal:
Living: alone
Employment: Retired
Family History
Family History: Hypertension
Review of Systems
Review of Systems
All Other Systems: ROS reviewed and negative except as documented in HPI and ROS
Constitutional: Denies fever or chills
Respiratory: Denies trouble breathing
Cardiac: Denies chest pain
Musculoskeletal: Reports muscle pain and edema
Skin: Reports rash
Neurological: Denies headache
Phy Exam
Physical Exam
Physical Exam:
General: Awake, alert, oriented x3; no acute distress
Head: Normocephalic, atraumatic
Eyes: Conjunctiva normal
Throat: Airway intact, handling secretions
Neck: Trachea midline, supple without meningismus
Lungs: Breathing comfortably no distress
Heart: Regular rate
Neuro: No gross deficit
Skin: Patient has left heel pressure wound�shallow-based ulceration, no drainage or discharge; she has erythema around the wound as well as on the dorsum of the foot and extending up the left calf as well as into the anterior lateral left thigh
Extremities: Patient has bilateral edema greater on the left with erythema of the left leg as noted mild diffuse tenderness but no focal calf tenderness in the left leg; strong palpable distal pulse left foot
Scores
Heart Failure Risk
Heart Failure Risk Score: Not Applicable
Heart Score for Chest Pain Patients
STEMI patient?: Not applicable
Withdrawal Assessment of Alcohol
Withdrawal Assessment Completed?: Not applicable
Course
Orders/Labs/Results
Orders:
Orders
09/07/24 12:32
US Periph Venous LOWER Ext LT Urgent
Comment:
Reason For Exam: redness, swelling
09/07/24 13:59
CRP [C-Reactive Protein] Urgent
Comprehensive Metabolic Panel Urgent
PTT Urgent
Prothrombin Time Urgent
09/07/24 14:00
Complete Blood Count/With Diff Urgent
ESR [Erythrocyte Sed Rate] Urgent
Manual Differential Urgent
09/07/24 14:45
Vancomycin [Vancocin] 2,000 mg 0.9% Sodium Chloride 500 ml [Nss] 500 ml IV NOW
09/07/24 14:46
Meropenem [Merrem] 1,000 mg IV NOW STA
09/07/24 15:00
Blood Culture Q30M
HENNY Source: Blood/Venous
Specimen Description:
09/07/24 15:30
Blood Culture Q30M
HENNY Source: Blood/Venous
Specimen Description:
Abnormal Lab Results
09/07/24 09/07/24
13:59 14:00
WBC 40.9 H* 10^3/uL
(4.8-10.8)
RBC 3.39 L 10^6/uL
(4.20-5.40)
Hgb 8.8 L g/dL
(12.0-16.0)
Hct 27.6 L %
(37.0-47.0)
MCH 26.0 L pg
(27.0-31.0)
MCHC 31.9 L g/dL
(33.0-37.0)
RDW 19.6 H %
(11.5-14.5)
Abs Neuts (Manual) 39.6 H 10^3/uL
(1.4-6.5)
Segmented Neutrophils 92 H %
(42-75)
Band Neutrophils 5 H %
(0-3)
Lymphocytes (Manual) 2 L %
(20-51)
ESR 93 H mm/hour
(0-20)
PT 14.7 H Sec
(11.4-14.6)
APTT 21.9 L Sec
(23.4-35.0)
Carbon Dioxide 31 H mmol/L
(22-30)
BUN 51 H mg/dl
(7-17)
Glucose 284 H mg/dl
(70-99)
AST 13 L U/L
(14-36)
C-Reactive Protein 12.50 H mg/L
(0.0-10.00)
Total Protein 5.9 L g/dl
(6.3-8.2)
Albumin 3.4 L g/dl
(3.5-5.0)
09/07/24 14:00
09/07/24 13:59
Vital Signs
Initial and Last Documented VS:
Initial Vital Signs
Temp Pulse Resp BP Pulse Ox
36.6 C 91 16 131/67 92
09/07/24 09:50 09/07/24 09:50 09/07/24 09:50 09/07/24 09:50 09/07/24 09:50
Last Documented Vital Signs
Temp Pulse Resp BP Pulse Ox
36.6 C 72 16 109/57 95
09/07/24 09:50 09/07/24 13:44 09/07/24 09:50 09/07/24 13:46 09/07/24 13:52
MDM/Problems Addressed
Differential Diagnosis Includes:
DVT, cellulitis
MDM/Problems Addressed:
73-year-old female presents for evaluation of swelling, pain, redness in the left leg in the setting of chronic lymphedema and chronic wound on the left heel. Recently started chemotherapy for non-Hodgkin's lymphoma. Vitals and exam as above.
Will check labs including a CBC and a CMP, ESR/CRP. Check ultrasound of the left lower extremity to rule out DVT. Monitor closely reassess after the above.
Left lower extremity ultrasound is negative for DVT. Labs are pending but at this point working diagnosis is cellulitis and given history of diabetes, immunocompromise patient on chemotherapy, the extent of her cellulitis I think inpatient
treatment is indicated. Will plan for admission pending labs.
Labs were significant for leukocytosis to 40.9 in the setting of known lymphoma and chemotherapy treatment. Stable anemia. I did add blood cultures on as she did have bandemia as well. Inflammatory markers elevated. CMP shows hyperglycemia but
no DKA. Admit for continued management of severe cellulitis. Treat with vancomycin and meropenem based on allergies. Discussed case with hospitalist for admission.
Chronic conditions affecting care:
Non-Hodgkin's lymphoma, chronic lymphedema, insulin-dependent diabetes, obesity
*Radiology
Radiology exam reviewed: radiology read reviewed
*Pulse Oximetry
Patient hypoxic: no
*Critical Care Note
Total Time (30-74mins, 75-104mins- exclusive of procedures): Not Applicable
Data Reviewed
Review of Other/Old Records Reveals: Labs and Records
Source: patient, records and family
Patient Management
Discussion with other providers: Hospitalist (Discussed with hospitalist)
Escalation/DeEscalation of care consider admission/obs:
Admission indicated
ED Attending Note
-
Portions of this chart may have been created with voice recognition software.� Occasional wrong word or��sound alike� substitutions may have occurred due to the inherent limitations of voice recognition software.
Discharge Plan
Departure
Patient Disposition: Admit
Date of Disposition: 09/07/24
Time of Disposition: 14:52
Admit to doctor: Jyoti
Presentation/result/management discussed w/ accepting MD/DO: Hospitalist
Discharge Problem:
Cellulitis, Sepsis, Open wound of heel, Hyperglycemia, Leukocytosis
Prescriptions:
No Action
albuterol sulfate 1 PUFF HFA aerosol inhaler
2 puff inhalation R Q4HPRN PRN (Reason: sob/wheezing)
atorvastatin 40 MG tablet
40 mg PO HS
fenofibrate nanocrystallized 48 MG tablet
48 mg PO HS
pantoprazole 40 MG tablet,delayed release (DR/EC)
40 mg PO DAILY
sertraline 50 MG tablet
50 mg PO HS
montelukast 10 MG tablet
10 mg PO DAILY
fluticasone propion-salmeterol [Advair Diskus] 250-50 mcg/dose Blister With Device
1 inh INHALATION R DAILYPRN PRN (Reason: sob/wheezing)
spironolactone 25 mg Tablet
25 mg PO DAILY
levothyroxine [Synthroid] 125 mcg Tablet
125 mcg PO DAILY
digoxin 125 mcg (0.125 mg) Tablet
125 mcg PO DAILY
verapamil 240 mg capsule,ext rel. pellets 24 hr
240 mg PO DAILY
metoprolol succinate 25 mg Tablet Extended Release 24 Hr
25 mg PO DAILY Qty: 30 0RF
therapeutic multivitamin Tablet
1 tab PO DAILY
furosemide 80 mg Tablet
60 mg PO BID
furosemide 80 mg Tablet
40 mg PO NOON
metformin 500 mg Tablet Extended Release 24 Hr
1,000 mg PO BID
insulin glargine [Lantus U-100 Insulin] 100 unit/mL solution
3 unit SC HS
Patient Comments:
patient reports she no longer takes lantus, last time was towards the end of July
aspirin 81 mg tablet,delayed release (DR/EC)
81 mg PO DAILY
estradiol 0.01 % (0.1 mg/gram) Cream
1 appful vaginal MoWeFr@2200 Qty: 42.5 0RF
allopurinol 100 mg tablet
100 mg PO DAILY Qty: 30 0RF
Santyl 250 unit/gram ointment
1 applic topical DAILY
zolpidem [Ambien CR] 12.5 mg Tablet,Ext Release Multiphase
12.5 mg PO HSPRN PRN (Reason: sleep)
sennosides [Stacey-yaya] 8.6 mg tablet
8.6 mg PO BIDPRN PRN (Reason: constipation)
linezolid 600 mg Tablet
600 mg PO BID 7 Days Qty: 14 0RF
Referrals:
Joel,Maria G H., MD [Primary Care Provider] -
Interventions
Interventions:
*Risk Screen - Suicide Last Done: 09/07/24 09:52
*General Assessment Last Done: 09/07/24 13:44
*Neglect/Abuse Screening Last Done: 09/07/24 09:52
*ED- Fall Risk Assessment Last Done: 09/07/24 13:44
*ED COVID-19 Vaccine History Last Done: 09/07/24 13:44
ED-Skin Assessment Last Done: 09/07/24 13:44
Discharge Date and Time
Print Language: PORTUGUESE
[2024-09-07 14:26] LABS: Hematocrit 27.6 % (37.0-47.0); Hemoglobin 8.8 g/dL (12.0-16.0); Mean Corp Hgb Conc. 31.9 g/dL (33.0-37.0); Mean Corpuscular Volume 81.4 fL (81.0-99.0); Platelet Count 194 10^3/uL (130-400); Red Blood Cell Count 3.39 10^6/uL (4.20-5.40); Red Cell Dist. Width 19.6 % (11.5-14.5); White Blood Cell Count 40.9 10^3/uL (4.8-10.8)
[2024-09-07 14:28] LABS: INR 1.12; PT 14.7 Sec (11.4-14.6)
[2024-09-07 14:29] LABS: ALT (SGPT) 10 U/L (0-35); APTT 21.9 Sec (23.4-35.0); AST (SGOT) 13 U/L (14-36); Albumin 3.4 g/dl (3.5-5.0); Alkaline Phosphatase 107 U/L (38-126); Blood Urea Nitrogen 51 mg/dl (7-17); Carbon Dioxide 31 mmol/L (22-30); Chloride 102 mmol/L (98-107); Glucose 284 mg/dl (70-99); Potassium 3.8 mmol/L (3.5-5.1); Sodium 139 mmol/L (135-145); Total Bilirubin 0.8 mg/dl (0.2-1.3); Total Protein 5.9 g/dl (6.3-8.2); eGFR 58.75
[2024-09-07 14:30] LABS: Erythrocyte Sed Rate 93 mm/hour (0-20)
[2024-09-07 14:35] LABS: Absolute Neutrophils -Man Diff 39.6 10^3/uL (1.4-6.5); Band Neutrophils 5 % (0-3); Lymphocytes 2 % (20-51); Segmented Neutrophils 92 % (42-75)
[2024-09-07 14:36] LABS: Metamyelocytes 1 % (-); Platelets Checked Yes
[2024-09-07 14:37] LABS: Anisocytosis 1+; Hypochromasia 1+; Normal RBC Morphology No; Ovalocytes 1+; Total Cells Counted 100
--- NOTE | 2024-09-07 14:57 | HPS.HSE ---
Family Physician
-
Family Physician: Maria G Maldonado
Chief Complaint
-
Left lower extremity cellulitis
History of Present Illness
Patient is a 73-year-old woman with past medical history significant for non-Hodgkin's lymphoma on chemotherapy, diabetes, morbid obesity, prior cellulitis, chronic lymphedema who presents to the emergency department secondary to left leg swelling,
with increased swelling to the left side with increased redness over the past few days. She says that it initially started in the lower leg and then progressed up to her thigh. She saw her primary care physician who then referred her to the
emergency department to be evaluated. Of note she has a heel wound as a suspected portal of entry for infection. Her daughter regularly cleans and dresses her left heel wound. She denies chest pain shortness of breath palpitations no nausea
vomiting or diarrhea no abdominal complaints no bleeding no dysuria. She denies fevers. She has non-Hodgkin's lymphoma for which she had her first 2 treatments this past week on Monday and . She said the treatment supposed to be 1 day
however had to be 2 days due to her blood pressure dropping. She received an injection of Neupogen on .
Medical History
Past Medical History
Past Medical History: Reports CAD, CHF, COPD, HTN, Hypercholesterolemia, Hypothyroidism, NIDDM, Renal Failure (CKD stage IIIa), Psychiatric and Other
Additional Past Medical History:
essential hypertension
hyperlipidemia
permanent atrial fibrillation
CKD III
hypothyroidism
DM II
CAD
GERD
HFpEF
iron deficient anemia
H pylori infection
adrenal mass
lymphedema
allergic asthma
alcohol use
sleep apnea
PVD
pulmonary artery HTN
Hx cellulitis
Hx kidney stones
chronic lymphedema
Past Surgical History: Reports Cholecystectomy, Orthopedic (Left reverse shoulder arthroplasty December 2023 patient with), Urological (Bladder repair, kidney stone extraction) and Other (Right femoral artery cannulation January 2024, Mohs surgery
forehead 2021)
Additional Past Surgical History:
left should replacement
cholecystectomy
kidney stone removed
tonsillectomy
bladder repair
cardiac ablation
cardioversions
skin CA removed
heel debridement
watchman procedure
Stents X 2, Watchman device
Right frontal craniotomy for meningioma 2022
Social History
Tobacco: Former Smoker
Alcohol: Former (last drink was over a year ago)
Drug: None
Living: With Family
Family History
Family History: Not pertinent
Allergies / Home Medications
Allergies reflects when Allergies were last updated in [employer].
Home Medications with original date entered in [employer]
Allergy/Medication List:
Allergies
Allergy/AdvReac Type Severity Reaction Status Date / Time
cat dander Allergy ASTHMA/SOB Verified 07/10/24 22:16
levofloxacin Allergy Hives Verified 07/10/24 22:16
[From Levaquin Leva-Carlos]
Penicillins Allergy Shortness Verified 07/10/24 22:16
of Breath
piperacillin Allergy Anaphylaxis, Verified 07/10/24 22:16
acute
hypoxemic
resp f,
hypotensitching
01/25/24
Sulfa (Sulfonamide Allergy Hives Verified 07/10/24 22:16
Antibiotics)
vancomycin [Vancomycin] Allergy Rash/red Verified 07/10/24 22:16
tino
syndrome
Home Medications
albuterol sulfate 90 mcg/actuation aerosol inhaler 1 puff inhalation R Q4HPRN PRN sob/wheezing 09/27/19
atorvastatin 40 mg tablet 40 mg PO HS High cholesterol 04/23/21
fenofibrate nanocrystallized 48 mg tablet 48 mg PO HS High cholesterol 07/13/21
montelukast 10 mg tablet 10 mg PO DAILY Allergies 11/30/21
pantoprazole 40 mg tablet,delayed release 40 mg PO DAILY Gastrointestinal issue 11/30/21
sertraline 50 mg tablet 50 mg PO HS Depression 11/30/21
digoxin 125 mcg (0.125 mg) tablet 125 mcg PO DAILY Heart Disease/Condition 08/22/23
fluticasone 250 mcg-salmeterol 50 mcg/dose blistr powdr for inhalation (Advair Diskus) 1 inh inhalation R BIDPRN PRN sob/wheezing 08/22/23
levothyroxine 125 mcg tablet (Synthroid) 125 mcg PO DAILY Thyroid 08/22/23
spironolactone 25 mg tablet 25 mg PO DAILY Heart Failure 08/22/23
verapamil 240 mg 24 hr capsule,extended release 240 mg PO DAILY Blood Pressure 11/04/23
metoprolol succinate 25 mg tablet,extended release 24 hr 25 mg PO DAILY #30 tabs 11/06/23
aspirin 81 mg tablet,delayed release 81 mg PO DAILY Blood Clot Prevention/Tx 06/17/24
furosemide 80 mg tablet 80 mg PO QPM Fluid Retention/Swelling 06/17/24
furosemide 80 mg tablet 120 mg PO DAILY Fluid Retention/Swelling 06/17/24
metformin 500 mg tablet,extended release 24 hr 1,000 mg PO BID Diabetes 06/17/24
acetaminophen 650 mg tablet,extended release 1,300 mg PO Q8HPRN PRN mild pain 09/07/24
allopurinol 300 mg tablet 300 mg PO DAILY 09/07/24
estradiol 0.01% (0.1 mg/gram) vaginal cream 1 appful vaginal MOWEFR Skin issues 09/07/24
gabapentin 300 mg capsule 300 mg PO HS 09/07/24
levetiracetam 500 mg tablet 500 mg PO BID 09/07/24
Review of Systems
-
A 12 point ROS was completed and negative except as noted: Yes
Physical Exam
Vital Signs
Vital Signs
Temp Pulse Resp BP Pulse Ox
98 F 72 16 109/57 95
09/07/24 09:50 09/07/24 13:44 09/07/24 09:50 09/07/24 13:46 09/07/24 13:52
Physical Exam
General: Comfortable, Conversant and Morbidly Obese
HEENT: NormoCephalic, Anicteric and Moist mucous membranes
Respiratory: Clear
Cardiac: S1/S2 and Regular Rhythm
GI: Soft, Non Tender and Non Distended
Musculoskeletal: No Clubbing, No Cyanosis, Edema, Left Lower Extremity (severe lymphedema up to thighs and abdomen) and Edema, Right Lower Extremity (severe lymphedema up to thighs and abdomen)
Skin: Warm, Dry and Other ( left heel pressure ulceration, non-purulent; significant LLE swelling erythema (no erythema on right upper thigh) around the wound & dorsum foot, with extension up the left calf and surrounding the left lower leg up into
into anterior lateral left thigh up to groin)
Neuro: AO x 3, No Motor Deficits and Nonfocal/grossly intact
Psych: Calm
Laboratory Results
-
09/07/24 14:00
09/07/24 13:59
Laboratory Results
PT 14.7 Sec (11.4-14.6) H 09/07/24 13:59
INR 1.12 09/07/24 13:59
APTT 21.9 Sec (23.4-35.0) L 09/07/24 13:59
Total Bilirubin 0.8 mg/dl (0.2-1.3) 09/07/24 13:59
AST 13 U/L (14-36) L 09/07/24 13:59
ALT 10 U/L (0-35) 09/07/24 13:59
Alkaline Phosphatase 107 U/L (38-126) 09/07/24 13:59
Data Reviewed
-
Ultrasound: Report Reviewed by me (No evidence of DVT in the left lower extremity)
Lab Data: Labs Reviewed by me and Discussed with Patient
Impression/Plan
-
IMPRESSION:Patient is a 73-year-old woman with past medical history significant for non-Hodgkin's lymphoma on chemotherapy, diabetes, morbid obesity, chronic lymphedema who presents to the emergency department secondary to left leg swelling, with
increased swelling to the left side with increased redness over the past few days. She says that it initially started in the lower leg and then progressed up to her thigh. She saw her primary care physician who then referred her to the emergency
department to be evaluated. Of note she has a heel wound as a suspected portal of entry for infection. Her daughter regularly cleans and dresses her left heel wound. She denies chest pain shortness of breath palpitations no nausea vomiting or
diarrhea no abdominal complaints no bleeding no dysuria. She denies fevers. She has non-Hodgkin's lymphoma for which she had her first 2 treatments this past week on Monday and . She said the treatment supposed to be 1 day however had
to be 2 days due to her blood pressure dropping. She received an injection of Neupogen on .
# Left lower extremity cellulitis that is rapidly progressing from the left heel and foot up to the left groin associated with erythema swelling and chronic peripheral vascular disease and lymphedema, likely source of infection is the left pressure
ulcer on her heel.
- ESR is 93, follow
- Continue broad-spectrum IV antibiotics Merrem and vancomycin started in the emergency department
- Wound care to the left heel
- Elevate lower extremity
- Monitor laboratory
# Severe chronic lymphedema bilateral lower extremities
-wound care of pressure ulcer
-JAVIER stockings
# Non-Hodgkin's lymphoma status postchemotherapy, her first round this past Monday and
- She has right upper chest port in place
- She received a shot likely Neupogen on WBC today is 40.9 likely, related to this, however she does have a left shift with 92% neutrophils likely related to infection
# Uncontrolled hyperglycemia, type 2 diabetes
- Continue metformin and add sliding scale insulin with close monitoring of blood sugars
- She may require long-acting insulin
Chronic medical conditions:
#essential hypertension
-metoprolol w hold parameters
-spironolactone, verapamil w hold parameters
#hyperlipidemia
-fenofibrate
#permanent atrial fibrillation
-digoxin
#CKD III
#hypothyroidism
-synthroid
-ssi
#CAD
-aspirin
-atorvastatin
#GERD
-PPI
#HFpEF
-Lasix
-spironolactone
#iron deficient anemia
#H pylori infection
#adrenal mass
#allergic asthma
-continue albuterol prn
-montelukast
-advair
#alcohol use
-on keppra, unclear of prior seizure history
#sleep apnea
#PVD
#pulmonary artery
#Hx prior cellulitis
#gout
-allopurinol
#Hx kidney stones
#meningioma grade 2 with radiation therapy and craniotomy
DVT proph-PCDs
Full Code
[2024-09-07] MEDS: MERREM 1000 MG IV (16:16)
[2024-09-07] MEDS: VANCOCIN 540 MG IV (18:22)
--- NOTE | 2024-09-07 18:45 | PTCARENOTE ---
Received pt from ED via stretcher. Stretcher placed next to bed. Pt able to stand and pivot onto BSC. AAOx3. ESPINOZA. Pt c/o weakness throughout legs.
[2024-09-07] MEDS: ADVAIR HFA 115/21 MCG INHALER 2 PUFF INH (20:08)
[2024-09-07 20:16] LABS: Glucose - Point of Care 342 mg/dl (70-99)
[2024-09-07] MEDS: GLUCOPHAGE XR EXTENDED RELEASE 1000 MG PO (20:22)
[2024-09-07] MEDS: LASIX 80 MG PO (20:22)
[2024-09-07] MEDS: KEPPRA 500 MG PO (20:23)
[2024-09-07] MEDS: COLACE 100 MG PO (21:32)
--- NOTE | 2024-09-07 22:03 | PHA.VAN.IN ---
Assessment
- Assessment
Renal Function: Appears similar to baseline
Concomitant Antimicrobials: meropenem 500mg IV Q6
- Previous Dosing Experience
Pt previously on vancomycin in 2021, but was dosed by level due to BAN.
AUC Dosing Plan
- Dosing Variables
Dosing Weight (kg): 95
Dosing CrCl (ml/min): 53
Vd coefficient (L/kg): 0.6
- Empiric Dosing
Initial / Loading Dose: Vancomycin 2000mg given 4/5 at 1800
Maintenance Regimen: Vancomycin 1250mg IV q24h to start 09/08 at 1200
Estimated AUC (mcg*h/mL): 464
Estimated Peak (mcg*h/mL): 31.9
Estimated Trough (mcg/ml): 10.5
Estimated Half Life (H): 14
Will infuse vancomycin 1250mg over 2 hours due to h/o infusion reaction.
- Monitoring
No levels ordered at this time: Will order levels prior to steady state.
MRSA Screen: Ordered per protocol
Pharmacokinetics Vancomycin I
- -
Patient Age: 73
Patient Sex: Female
Vancomycin Day #: 1
Indication: Skin And Soft Tissue
Requesting Provider: Dr. Montes
Pertinent Antimicrobial Allergies:
Penicillins Allergy (Verified 07/10/24 22:16)
Shortness of Breath
Sulfa (Sulfonamide Antibiotics) Allergy (Verified 07/10/24 22:16)
Hives
levofloxacin [From Levaquin Leva-Carlos] Allergy (Verified 07/10/24 22:16)
Hives
piperacillin Allergy (Verified 07/10/24 22:16)
Anaphylaxis, acute hypoxemic resp f, hypotensitching 01/25/24
vancomycin [Vancomycin] Allergy (Verified 07/10/24 22:16)
Rash/red tino syndrome
if pushed too fast
Height / Weight:
Height 5 ft 3 in
Actual Weight 95.254 kg
Pertinent Past Medical History: BMI 37,
- Vital Signs / Lab Results
Temp Pulse Resp BP Pulse Ox
98.1 F 100 18 130/63 88
09/07/24 18:48 09/07/24 20:22 09/07/24 20:14 09/07/24 20:22 09/07/24 20:14
Lab Results - Hematology
09/07/24
14:00
WBC 40.9 H*
Band Neutrophils 5 H
Lab Results - Chemistry
09/07/24
13:59
BUN 51 H
Creatinine 1.0
Albumin 3.4 L
[2024-09-07] MEDS: LIPITOR 40 MG PO (22:53)
[2024-09-07] MEDS: MERREM 500 MG IV (22:55)
[2024-09-07] MEDS: STERILE WATER FOR INJECTION 10 ML IV (22:59)
[2024-09-07] MEDS: NEURONTIN 300 MG PO (23:03)
[2024-09-07] MEDS: TRICOR 48 MG PO (23:04)
[2024-09-07] MEDS: ZOLOFT 50 MG PO (23:04)
--- NOTE | 2024-09-08 00:22 | PTCARENOTE ---
Blood Cultures ordered and not drawn, Vanco infusing into Pt at right SQ port. OFFICE ANALYST notified about blood cultures not being drawn. OFFICE ANALYST stated Pt refused blood cultures.
Pt insisting on using Purewick overnight. Pt using own Purewick setup at home. Educated Pt on risk of infection. RN administered dose of Lasix. Purewick is in for tonight. Will continue to educate Pt. Plan of care ongoing.
[2024-09-08] MEDS: SYNTHROID 125 MCG PO (05:11)
[2024-09-08] MEDS: STERILE WATER FOR INJECTION 10 ML IV ×2 (05:12→09:03)
[2024-09-08] MEDS: MERREM 500 MG IV ×2 (05:12→09:03)
[2024-09-08 05:34] LABS: Hematocrit 29.4 % (37.0-47.0); Hemoglobin 9.1 g/dL (12.0-16.0); Mean Corpuscular Hgb 25.9 pg (27.0-31.0); Mean Corpuscular Volume 83.8 fL (81.0-99.0); Mean Platelet Volume 9.7 fL (7.4-10.4); Platelet Count 222 10^3/uL (130-400); Red Blood Cell Count 3.51 10^6/uL (4.20-5.40); Red Cell Dist. Width 19.6 % (11.5-14.5); White Blood Cell Count 49.8 10^3/uL (4.8-10.8)
[2024-09-08 05:42] LABS: ALT (SGPT) 10 U/L (0-35); AST (SGOT) 17 U/L (14-36); Albumin 3.5 g/dl (3.5-5.0); Alkaline Phosphatase 141 U/L (38-126); Blood Urea Nitrogen 46 mg/dl (7-17); Calcium 9.1 mg/dl (8.4-10.2); Carbon Dioxide 31 mmol/L (22-30); Chloride 104 mmol/L (98-107); Estimated Creatinine Clearance 59 ml/min; Glucose 200 mg/dl (70-99); Sodium 143 mmol/L (135-145); Total Bilirubin 0.8 mg/dl (0.2-1.3); Total Protein 6.1 g/dl (6.3-8.2); eGFR > 60.00
[2024-09-08 06:00] VITALS: BMI 42.5
--- NOTE | 2024-09-08 07:21 | PTCARENOTE ---
Pt 88-90% on RA. Pt refusing oxygen. No complaints of shortness of breath. MD notified and passed on to dayshift RN. Plan of care ongoing.
[2024-09-08] MEDS: ADVAIR HFA 115/21 MCG INHALER 2 PUFF INH ×2 (07:53→19:46)
[2024-09-08] MEDS: COLACE 100 MG PO ×2 (08:19→20:43)
[2024-09-08] MEDS: LASIX 120 MG PO (08:19)
[2024-09-08] MEDS: TOPROL XL 25 MG PO (08:19)
[2024-09-08] MEDS: KEPPRA 500 MG PO ×2 (08:19→20:44)
[2024-09-08] MEDS: PROTONIX 40 MG PO (08:19)
[2024-09-08] MEDS: CALAN EXTENDED RELEASE 240 MG PO (08:20)
[2024-09-08] MEDS: ASPIR LOW (ENTERIC COATED) 81 MG PO (08:20)
[2024-09-08] MEDS: DESENEX/MITRAZOL/ZEASORB 1 APPLIC TOPICAL ×2 (08:21→20:45)
[2024-09-08] MEDS: GLUCOPHAGE XR EXTENDED RELEASE 1000 MG PO ×2 (08:26→17:38)
[2024-09-08] MEDS: SINGULAIR 10 MG PO (08:27)
[2024-09-08] MEDS: ZYLOPRIM 300 MG PO (08:27)
[2024-09-08] MEDS: ALDACTONE 25 MG PO (08:27)
[2024-09-08 08:30] VITALS: BMI 42.5
[2024-09-08 08:37] LABS: Glucose - Point of Care 231 mg/dl (70-99)
[2024-09-08 08:44] VITALS: BP 120/65
[2024-09-08 08:46] LABS: Segmented Neutrophils 83 % (42-75)
[2024-09-08 08:47] LABS: Absolute Neutrophils -Man Diff 45.8 10^3/uL (1.4-6.5); Band Neutrophils 9 % (0-3); Lymphocytes 3 % (20-51)
[2024-09-08 08:48] LABS: Eosinophils 2 % (0-6); Monocytes 2 % (2-9)
[2024-09-08 08:49] LABS: Metamyelocytes 1 % (-)
[2024-09-08 08:53] LABS: Platelets Checked Yes
[2024-09-08 08:54] LABS: Normal RBC Morphology No
[2024-09-08 08:57] LABS: Anisocytosis 1+; Hypochromasia 1+; Stomatocytes 1+; Total Cells Counted 100; Toxic Granulation 1+
[2024-09-08] MEDS: NOVOLOG FLEXPEN-MODERATE RESISTANCE 3 UNITS SC (09:02)
--- NOTE | 2024-09-08 10:57 | PHA.VAN.FU ---
Vancomycin Assessment / Plan
- Assessment
Renal Function: Stable
WBC's are: Trending Up (GSF on )
In the past 24 hrs, patient has been: Afebrile
Concomitant Antimicrobials: meropenem
- Dosing Plan
Continue: vancomycin 1250 mg daily ( first dose 09/08 after 2gm LD 09/07)
Dosing Comments: will infuse over 2 hours due to h/o infusion reaction
- Monitoring Plan
No level(s) ordered at this time: will order levels when pt nears steady state
- Follow Up
Pharmacy will continue to follow.
Vancomycin Follow UP
- -
Patient Age: 73
Patient Sex: Female
Vancomycin Day #: 2
Indication: Skin And Soft Tissue
Requesting Provider: Dr. Montes
Pertinent Antimicrobial Allergies:
Penicillins Allergy (Verified 07/10/24 22:16)
Shortness of Breath
Sulfa (Sulfonamide Antibiotics) Allergy (Verified 07/10/24 22:16)
Hives
levofloxacin [From Levaquin Leva-Carlos] Allergy (Verified 07/10/24 22:16)
Hives
piperacillin Allergy (Verified 07/10/24 22:16)
Anaphylaxis, acute hypoxemic resp f, hypotensitching 01/25/24
vancomycin [Vancomycin] Allergy (Verified 07/10/24 22:16)
Rash/red tino syndrome
if pushed too fast
Height / Weight:
Height 5 ft 3 in
Actual Weight 108.771 kg
Pertinent Past Medical History: BMI ~42; non Hodkins lymphoma on chemo (neupogen on )
- Vital Signs / Lab Results
Temp Pulse Resp BP Pulse Ox
98.3 F 127 16 120/65 100
09/08/24 08:44 09/08/24 08:44 09/08/24 08:44 09/08/24 08:44 09/08/24 08:44
Lab Results - Hematology
09/07/24 09/08/24
14:00 04:46
WBC 40.9 H* 49.8 H*
Band Neutrophils 5 H 9 H
Lab Results - Chemistry
09/07/24 09/08/24
13:59 04:46
BUN 51 H 46 H
Creatinine 1.0 0.9
Estimated Creat Clear 59
Albumin 3.4 L 3.5
--- NOTE | 2024-09-08 11:39 | CM ---
Patient seen at bedside in [facility]. Patient states that she plans to return home to her 2 story home. Patient stated that she has 7 adults living in the home with her. patient stated that she has an aide from [facility] that is not private pay
4 days a week from 8-2. Patient Son and , mother in law and mother live in home. Patient stated that she has a stair glide, walker, commode, wheelchair at home. Patient s/p Chemo and per nursing heavy assist to transfer to chair. Pending PT
assessment. Patient states she will never return to rehab; was in [facility] and [facility] and insists she will return home. Patient PCP is Dr. Corrales/Betsy Heard and she uses the [facility] on [address]. CM will continue to follow for discharge
planning needs.
Plan; home with VN/aides; watch for PT assessment
[2024-09-08] MEDS: LANOXIN 125 MCG PO (11:52)
[2024-09-08] MEDS: VANCOCIN 275 MG IV (11:54)
--- NOTE | 2024-09-08 13:06 | W.PN.HOSP.TC ---
Today's Communication/Plan
-
Continue IV antibiotics
Infectious disease consult
Escalate ISS to high resistance
Supportive measures for lymphedema
Assessment / Plan
Assessment / Plan
#Nonpurulent cellulitis of the LLE
#Immunosuppressed status
#Allergies to antibiotics
-Likely related to heel wound as portal of entry; no purulent drainage or signs of abscess
-She does have a history of diabetes which increases risk of polymicrobial involvement
-Currently on chemotherapy for NHL, recently started, presumed immune suppression
-Blood cultures taken on arrival, started on IV vancomycin and meropenem upon arrival
-Will continue current antibiotics; trend CBC, temp, ESR/CRP; follow cultures
-Leg elevation and compression stockings for lymphedema
-ID consult for optimization of antibiotics, plan for stepdown regimen
-Continue wound care of the heels
#Non-Hodgkin's lymphoma on chemotherapy
#Leukocytosis secondary to G-CSF
-Finished her first round of chemotherapy on 09/04 and 09/05; status post recent dose of Neupogen
-Unclear histopathology; currently with inguinal lymph node involvement
-Follows with Dr. Mejía from oncology
#NIDDM 2
-Poorly controlled; Home regimen includes metformin 1 g twice daily
-Hyperglycemia likely worsened from stress response related to infection
-Complicated by history of diabetic neuropathy for which she takes gabapentin
-Started on ISS with Accu-Cheks, glucose remains elevated into today
-Check A1c with a.m. labs; escalate to high resistance ISS
-Follow-up A1c and consider insulin regimen
#Permanent AF s/p ablation and Watchman
-Home medications include verapamil, metoprolol succinate, digoxin
-No longer on anticoagulation; remains on baby aspirin
-Currently in rate controlled atrial fibrillation
#Chronic HFpEF
#Pulmonary hypertension
-Unclear etiology; last echo with LVEF 55%, JOSE, reduced RV systolic function
-Suspect group 3 pulmonary hypertension with previous SAMIA; JOSE consistent with infiltrative disease
-Home regimen includes Lasix (120 AM, 80 PM), Aldactone; not on SGLT2i
-Has chronic lymphedema that otherwise euvolemic
#CKD stage III
-Baseline creatinine near 0.9 with creatinine clearance in the mid 50s
-Mild, no complications of chronic kidney disease
-Trend BMP
#CAD s/p PCI x 2
#Dyslipidemia
-Home medications include beta-yash, high intensity statin, aspirin, fenofibrate
-Most recent echo without significant wall motion abnormality
-No signs of ACS here, LDL goal <70
#Primary hypertension
-No known history of hypertensive systemic complications
-Home regimen includes beta-yash, Aldactone, Lasix, verapamil
-Blood pressure currently well-controlled
#Iron deficiency anemia
-Not currently on any oral iron supplements
-Suspect that she has a degree of anemia of chronic disease with cancer diagnosis
-Previous labs volatile but hemoglobin mostly in the range of 9-11
-Trend CBC and monitor for bleeding
#GERD
-Home medications include daily PPI therapy
-No known history of Bustamante's esophagus or erosive disease
#H/O seizures (?)
#Alcohol use
-Home regimen includes Keppra 500 mg twice daily
-Unclear nature of previous seizures; no EEG on record
-Continue Keppra for now
#Obstructive sleep apnea
-Likely associated with pulmonary hypertension
-Unclear if she wears CPAP at home, will confirm with patient
-Oxygen level here persistently near 90% which she states is her baseline at home
-Denies any dyspnea; refusing any supplemental oxygen here
#Gout
-Home regimen includes allopurinol
#H/O grade 2 meningioma s/p radiation and craniotomy
DVT prophylaxis: SCDs for now
Diet: Carbohydrate controlled
CODE STATUS: Full code
Anticipated Discharge: > 48 hours
Subjective/Interval History
-
Date of Service: September 08, 2024
Seen and examined at the bedside. No acute events reported overnight. AFVSS this morning, SpO2 near 90% on room air
Patient denies any new complaints as of this morning. Legs still feels tender to her, states she has had issues with recurrent cellulitis in the left lower extremity
Objective Data
-
Labs:
Laboratory Results
09/08/24
04:46
WBC 49.8 H*
Hgb 9.1 L
Hct 29.4 L
Plt Count 222
Sodium 143
Potassium 4.0
Chloride 104
Carbon Dioxide 31 H
BUN 46 H
Creatinine 0.9
Glucose 200 H
Calcium 9.1
Total Bilirubin 0.8
AST 17
ALT 10
Alkaline Phosphatase 141 H
Vital Signs:
Vital Signs
Temp Pulse Resp BP Pulse Ox
98.3 F 120 16 120/65 100
09/08/24 08:44 09/08/24 11:52 09/08/24 08:44 09/08/24 08:44 09/08/24 08:44
I&O
09/07/24 09/08/24 09/09/24
06:59 06:59 06:59
Intake Total 690 / 690
Output Total 750 / 750
Balance -60 / -60
Review of Systems
-
History Source: Patient
All other systems: Reviewed and negative
Physical Exam
-
General: Well Developed, No Apparent Distress and Morbidly Obese
HEENT: Normocephalic, Atraumatic, Moist Mucous Membranes and Anicteric
Respiratory: Clear to Auscultation and Non Labored Respirations
Cardiac: S1/S2 and Irregular Rhythm; Negative Murmur, Rub, Gallop or Tachycardic
GI: Soft, Nontender, Nondistended and Normal Bowel Sounds
Musculoskeletal: No Clubbing, No Cyanosis and Other (Lymphedema bilaterally)
Skin: Warm, Dry, Normal Turgor and Other (LLE with erythema, warmth, tenderness; no purulence or underlying fluctuance observed)
Neuro: AO x 3 and Nonfocal/Grossly Intact; Negative Tremors
Psych: Calm
Data Reviewed
-
Labs: Labs Reviewed by me, Discussed with Patient and Discussed with Family
[2024-09-08 13:16] VITALS: BMI 42.5
[2024-09-08] MEDS: NOVOLOG FLEXPEN-MODERATE RESISTANCE SC (15:03)
[2024-09-08 15:06] LABS: Glucose - Point of Care 265 mg/dl (70-99)
[2024-09-08] MEDS: NOVOLOG FLEXPEN-HIGH RESISTANCE 7 UNITS SC (15:06)
--- NOTE | 2024-09-08 15:16 | CON.ID ---
Consultation
-
Date/Time Consultation Requested: 09/08/2024 1244
Date/Time Consultation Performed: 09/08/2024 1517
Requesting Provider: Dr. Jc
Performing Provider: Dr. Juan
Reason for Consultation: Lower extremity cellulitis
Chief Complaint / Past History
History of Present Illness
Patricia Clark is a 73-year-old female with a significant past medical history of large B-cell lymphoma being evaluated at the request of Dr. Mukherjee regarding left lower extremity cellulitis. History is obtained from chart review, along with
patient interview.
The patient reports that she initiated chemotherapy in the treatment of non-Hodgkin's lymphoma this past week, and notes that she received G-CSF on either or Monday. She presents to the emergency room yesterday secondary to worsening left
lower extremity swelling which she has noted over the past several days. She is also noted some increased erythema of the area. She said she saw her PCP who immediately sent her to the emergency room for further evaluation. She notes only mild
pain which is reported as 'deep' and not on the skin. She is followed closely by podiatry for a left heel wound. She denies any fevers or chills. Swelling is noted bilaterally, but is greatest in the left lower extremity. She denies any
headache. She denies any cough or congestion. She denies any abdominal pain.
Past History
Additional Past Medical History:
Large B-cell lymphoma
A-fib
CAD; Hx [place]
CHF
HTN
Dyslipidemia
IDDM
Hypothyroidism
Chronic lymphedema
Morbid obesity
Additional Past Surgical History:
Right frontal craniotomy for meningioma 2022
cardioversion
Stents X 2
Watchman device
Cholecystectomy (1982
Left reverse shoulder arthroplasty December 2023
Bladder repair, kidney stone extraction
Right femoral artery cannulation January 2024
Mohs surgery forehead 2021
Allergy History:
cat dander Allergy (Verified 07/10/24 22:16)
ASTHMA/SOB
levofloxacin [From Levaquin Leva-Carlos] Allergy (Verified 07/10/24 22:16)
Hives
Penicillins Allergy (Verified 07/10/24 22:16)
Shortness of Breath
piperacillin Allergy (Verified 07/10/24 22:16)
Anaphylaxis, acute hypoxemic resp f, hypotensitching 01/25/24
Sulfa (Sulfonamide Antibiotics) Allergy (Verified 07/10/24 22:16)
Hives
vancomycin [Vancomycin] Allergy (Verified 07/10/24 22:16)
Rash/red tino syndrome
Medications Reviewed: Yes
Current Antibiotics:
Meropenem 500 mg IV every 6 hours
Vancomycin
Social History
Tobacco: Former Smoker
Alcohol: Daily
Drug: None
Review of Systems
Vital Signs
Temp Pulse Resp BP Pulse Ox
98.3 F 120 16 120/65 100
09/08/24 08:44 09/08/24 11:52 09/08/24 08:44 09/08/24 08:44 09/08/24 08:44
Physical Exam
Physical Exam
Constitutional: No Acute Distress, Comfortable, Non-toxic and Obese
Head: Normocephalic
Eyes: Pupils Equal, Pupils Round, No Conjunctival Hemorrhage and Sclera Anicteric
Oral: No Thrush and No Ulcers
Cardiovascular: Irregular Rate and S1/S2; Negative S3/S4
Pulmonary: Clear; Negative Wheezes or Rales
Gastrointestinal: Soft, Non Tender, Non Distended, Normal Bowel Sounds, No Rebound and No Guarding
Extremities: Edema (4+ edema left lower extremity with anasarca noted in thigh.; 3+ edema right lower extremity) and Erythema (Mild, left lower extremity with anasarca noted in thigh.)
Neurological: Awake and Alert
Psychological: Calm
Lab / Diagnostic Study Results
09/08/24 04:46
09/08/24 04:46
Total Counted 100 09/08/24 04:46
Abs Neuts (Manual) 45.8 10^3/uL (1.4-6.5) H 09/08/24 04:46
Segmented Neutrophils 83 % (42-75) H 09/08/24 04:46
Band Neutrophils 9 % (0-3) H 09/08/24 04:46
Lymphocytes (Manual) 3 % (20-51) L 09/08/24 04:46
Eosinophils (Manual) 2 % (0-6) 09/08/24 04:46
ESR 93 mm/hour (0-20) H 09/07/24 14:00
PT 14.7 Sec (11.4-14.6) H 09/07/24 13:59
INR 1.12 09/07/24 13:59
C-Reactive Protein 12.50 mg/L (0.0-10.00) H 09/07/24 13:59
Microbiology Results
Micro:
09/08/24 06:15 Blood Culture - Pending
Blood/Venous
09/08/24 05:19 Blood Culture - Pending
Blood/Venous
09/08/24 00:18 MRSA Screen - Pending
Nose
Imaging:
07/13/2024 CT pelvis with contrast: Soft tissue masses are present within both groins which have increased in size compared to previous examinations dating back through September 2022. Specifically, in the left groin anterior to the left common femoral
artery on the left SFA there is a large lobulated mass which measures 8.5 x 8.5 cm x 16 cm craniocaudal. There is also enlargement of the left external iliac and common femoral lymph nodes.
Assessment / Plan
Worsening left lower extremity edema/lymphedema
-Suspect secondary to noted masses on prior CT
Left lower extremity erythema, likely secondary to edema rather than cellulitis
Leukocytosis
-Suspect secondary to recent G-CSF administration
High-grade/large B-cell lymphoma
-Began chemotherapy this week.
Allergy to Zosyn, levofloxacin, sulfa
A-fib
CAD; Hx [place]
CHF
HTN
Dyslipidemia
IDDM
Hypothyroidism
Chronic lymphedema
Morbid obesity
Recommendations:
Discontinue further meropenem and vanco.
Blood cultures are currently pending.
Doubt cellulitis, but it cannot be completely eliminated from the differential, therefore will initiate zyvox, although have low threshold to discontinue.
Follow white count and temperature curve.
Erik wrap to the lower extremities.
[2024-09-08 15:30] VITALS: BP 104/48
[2024-09-08] MEDS: LASIX 80 MG PO (17:38)
[2024-09-08 17:44] LABS: Glucose - Point of Care 399 mg/dl (70-99)
[2024-09-08] MEDS: NOVOLOG FLEXPEN-HIGH RESISTANCE 12 UNITS SC (18:11)
[2024-09-08] MEDS: ZYVOX 600 MG PO (20:44)
[2024-09-08] MEDS: ZOLOFT 50 MG PO (21:55)
[2024-09-08] MEDS: LIPITOR 40 MG PO (21:55)
[2024-09-08] MEDS: NEURONTIN 300 MG PO (21:56)
[2024-09-08] MEDS: TRICOR 48 MG PO (21:56)
[2024-09-08 23:00] VITALS: BP 115/52
[2024-09-09 01:44] LABS: Glucose - Point of Care 183 mg/dl (70-99)
[2024-09-09 04:51] LABS: Hematocrit 25.9 % (37.0-47.0); Hemoglobin 8.1 g/dL (12.0-16.0); Mean Corp Hgb Conc. 31.3 g/dL (33.0-37.0); Mean Platelet Volume 9.8 fL (7.4-10.4); Platelet Count 173 10^3/uL (130-400); Red Blood Cell Count 3.12 10^6/uL (4.20-5.40); Red Cell Dist. Width 19.7 % (11.5-14.5); White Blood Cell Count 32.5 10^3/uL (4.8-10.8)
[2024-09-09 04:55] LABS: Blood Urea Nitrogen 39 mg/dl (7-17); Calcium 8.9 mg/dl (8.4-10.2); Carbon Dioxide 32 mmol/L (22-30); Chloride 104 mmol/L (98-107); Estimated Creatinine Clearance 72 ml/min; Glucose 167 mg/dl (70-99); Potassium 3.8 mmol/L (3.5-5.1); Sodium 142 mmol/L (135-145); eGFR > 60.00
[2024-09-09 05:19] LABS: Erythrocyte Sed Rate 104 mm/hour (0-20)
[2024-09-09] MEDS: SYNTHROID 125 MCG PO (05:48)
[2024-09-09 06:00] VITALS: BMI 42.8
[2024-09-09 07:00] VITALS: BP 112/67
[2024-09-09 07:56] LABS: Glucose - Point of Care 204 mg/dl (70-99)
[2024-09-09] MEDS: ADVAIR HFA 115/21 MCG INHALER 2 PUFF INH (07:57)
[2024-09-09] MEDS: GLUCOPHAGE XR EXTENDED RELEASE 1000 MG PO (08:56)
[2024-09-09] MEDS: LASIX 120 MG PO (08:57)
[2024-09-09] MEDS: CALAN EXTENDED RELEASE 240 MG PO (08:58)
[2024-09-09] MEDS: SINGULAIR 10 MG PO (08:58)
[2024-09-09] MEDS: ZYLOPRIM 300 MG PO (08:58)
[2024-09-09] MEDS: KEPPRA 500 MG PO (08:58)
[2024-09-09] MEDS: COLACE 100 MG PO (08:58)
[2024-09-09] MEDS: ALDACTONE 25 MG PO (08:58)
[2024-09-09] MEDS: ASPIR LOW (ENTERIC COATED) 81 MG PO (08:58)
[2024-09-09] MEDS: TOPROL XL 25 MG PO (08:58)
[2024-09-09] MEDS: DESENEX/MITRAZOL/ZEASORB 1 APPLIC TOPICAL (08:59)
[2024-09-09] MEDS: ZYVOX 600 MG PO (08:59)
[2024-09-09] MEDS: PROTONIX 40 MG PO (08:59)
[2024-09-09] MEDS: NOVOLOG FLEXPEN-HIGH RESISTANCE 4 UNITS SC (09:03)
[2024-09-09 09:47] LABS: % Basophils 0.1 % (0-2); % Eosinophils 2.2 % (0-6); % Immature Granulocytes 6.4 % (0-0.5); % Lymphocytes 2.1 % (20.5-51.1); % Monocytes 2.1 % (1.7-9.3); % Neutrophils 87.1 % (42.2-75.2); Absolute Eosinophils 0.7 10^3/uL (0-0.7); Absolute Immature Granulocytes 2.1 10^3/uL (0-0.05); Absolute Lymphocytes 0.7 10^3/uL (1.2-3.4); Absolute Monocytes 0.7 10^3/uL (0.1-0.6); Absolute Neutrophils 28.3 10^3/uL (1.4-6.5); Nucleated Red Blood Cells % 0 %
[2024-09-09 11:10] LABS: Glucose - Point of Care 309 mg/dl (70-99)
--- NOTE | 2024-09-09 12:03 | WOUNDNOTE ---
[facility] RN NOTE: Reviewed chart and met with patient. Patient with extensive medical history and multiple hospitalizations. Left heel wound is chronic over several years and patient follows with [employer] and every few weeks. Scant amount of drainage
noted, no odor. Buttocks and sacrum with blanchable MASD. Desenex powder has been ordered for ricky area and skin folds. Patient reports using Purwick at night and transfers to commode during the day. She reports good appetite and is on a Versa Care
Accumax. Patient reports current recommendations by [employer] and non-adherent dressing. Patient admits to being non-adherent to compression and off-loading foot wear. Patient declines compression with NILAY today. Local wound care provided as
ordered. TANISHA Tomlin given update. Will follow as needed.
[2024-09-09] MEDS: LANOXIN 125 MCG PO (12:05)
--- NOTE | 2024-09-09 12:35 | WOUNDNOTE ---
LEFT HEEL 1950 [id number]
--- NOTE | 2024-09-09 12:38 | W.PN.HOSP.TC ---
Addendum entered and electronically signed by Eugene Christy MD 09/11/24 14:26:
lymphedema unclear if related to NHL or DM
Original Note:
Today's Communication/Plan
-
ID recs
possible dc later today
cont w/home regimen of diuretics for now
Assessment / Plan
Assessment / Plan
#Lymphedema related changes vs. low likelihood of Nonpurulent cellulitis of the LLE
#Immunosuppressed status
#Allergies to antibiotics
-She does have a history of diabetes which increases risk of polymicrobial involvement
-Currently on chemotherapy for NHL, recently started, presumed immune suppression
-Blood cultures taken on arrival remains negative.
-started on IV vancomycin and meropenem upon arrival which was switched to po Zyvox
-Will continue current antibiotics; trend CBC, temp, ESR/CRP; follow cultures
-Leg elevation and compression stockings for lymphedema
-Continue wound care of the heels
-Await ID recs-
#Non-Hodgkin's lymphoma on chemotherapy
#Leukocytosis secondary to G-CSF
-Finished her first round of chemotherapy on 09/04 and 09/05; status post recent dose of Neupogen
-Unclear histopathology; currently with inguinal lymph node involvement
-Follows with Dr. Mejía from oncology
#NIDDM 2
-Poorly controlled; Home regimen includes metformin 1 g twice daily
-Hyperglycemia likely worsened from stress response related to infection
-Complicated by history of diabetic neuropathy for which she takes gabapentin
-Started on ISS with Accu-Cheks, glucose remains elevated into today
-A1C of 8.4 on 08/10/24
#Permanent AF s/p ablation and Watchman
-Home medications include verapamil, metoprolol succinate, digoxin
-No longer on anticoagulation; remains on baby aspirin
-Currently in rate controlled atrial fibrillation
#Chronic HFpEF
#Pulmonary hypertension
-Unclear etiology; last echo with LVEF 55%, JOSE, reduced RV systolic function
-Suspect group 3 pulmonary hypertension with previous SAMIA; JOSE consistent with infiltrative disease
-Home regimen includes Lasix (120 AM, 80 PM), Aldactone; not on SGLT2i
-Has chronic lymphedema that otherwise euvolemic
#CKD stage III
-Baseline creatinine near 0.9 with creatinine clearance in the mid 50s
-Mild, no complications of chronic kidney disease
-Trend BMP
#CAD s/p PCI x 2
#Dyslipidemia
-Home medications include beta-yash, high intensity statin, aspirin, fenofibrate
-Most recent echo without significant wall motion abnormality
-No signs of ACS here, LDL goal <70
#Primary hypertension
-No known history of hypertensive systemic complications
-Home regimen includes beta-yash, Aldactone, Lasix, verapamil
-Blood pressure currently well-controlled
#Iron deficiency anemia
-Not currently on any oral iron supplements
-Suspect that she has a degree of anemia of chronic disease with cancer diagnosis
-Previous labs volatile but hemoglobin mostly in the range of 9-11
-Trend CBC and monitor for bleeding
#GERD
-Home medications include daily PPI therapy
-No known history of Bustamante's esophagus or erosive disease
#H/O seizures (?)
#Alcohol use
-Home regimen includes Keppra 500 mg twice daily
-Unclear nature of previous seizures; no EEG on record
-Continue Keppra for now
#Obstructive sleep apnea
-Likely associated with pulmonary hypertension
-Unclear if she wears CPAP at home, will confirm with patient
-Oxygen level here persistently near 90% which she states is her baseline at home
-Denies any dyspnea; refusing any supplemental oxygen here
#Gout
-Home regimen includes allopurinol
#H/O grade 2 meningioma s/p radiation and craniotomy
DVT prophylaxis: SCDs for now
Diet: Carbohydrate controlled
CODE STATUS: Full code
Anticipated Discharge: Today
Subjective/Interval History
-
Date of Service: September 09, 2024
states her legs looks a lot better
states this is expected with her lymphedema
afebrile
LE elevated in chair
Objective Data
-
Labs:
Laboratory Results
09/09/24
04:15
WBC 32.5 H
Hgb 8.1 L
Hct 25.9 L
Plt Count 173 D
Sodium 142
Potassium 3.8
Chloride 104
Carbon Dioxide 32 H
BUN 39 H
Creatinine 0.8
Glucose 167 H
Calcium 8.9
Vital Signs:
Vital Signs
Temp Pulse Resp BP Pulse Ox
98.6 F 103 16 112/67 88
09/09/24 07:00 09/09/24 07:58 09/09/24 07:58 09/09/24 07:00 09/09/24 07:58
I&O
09/08/24 09/09/24 09/10/24
06:59 06:59 06:59
Intake Total 690 / 690 1680 / 1680
Output Total 750 / 750 1800 / 1800
Balance -60 / -60 -120 / -120
Physical Exam
-
General: Well Developed and No Apparent Distress
HEENT: Normocephalic, Atraumatic and Moist Mucous Membranes
Respiratory: Clear to Auscultation
Cardiac: Regular Rhythm and S1/S2; Negative Murmur, Rub or Gallop
GI: Soft, Nontender, Nondistended and Normal Bowel Sounds; Negative Organomegaly
Rectal: Deferred by Provider
Musculoskeletal: No Clubbing, No Cyanosis, Edema, Right Lower Extrem (lymphedema related changes noted. No alvarado erythema noted ) and Edema, Left Lower Extrem (lymphedema related changes noted. No alvarado erythema noted )
Skin: Negative Rash
Neuro: Awake, AO x 3 and Nonfocal/Grossly Intact
Psych: Calm
--- NOTE | 2024-09-09 12:38 | WOUNDNOTE ---
MASD to Buttocks
--- NOTE | 2024-09-09 12:39 | CM ---
Patient seen at bedside
Refused PT
states does not want rehab
states has private aide 4 days a week, and son assist the other days
Current with [employer] ([place]). Notified [facility] liaison & referral placed in [facility] for [facility]
PLAN: home, [facility]
[employer] [facility] Fax #: [phone]
[2024-09-09] MEDS: NOVOLOG FLEXPEN-HIGH RESISTANCE 10 UNITS SC (12:45)
--- NOTE | 2024-09-09 15:09 | PN.CDI ---
CDI
- -
CDI:
Physician Documentation Request
Admit Date: 09/07/24 17:24
Dear Doctor Jaelyn,
Please review the following and provide your response in the progress notes.
Clinical Indicators:
Pt admitted with Lymphedema related changes vs. low likelihood of Nonpurulent cellulitis of the LLE.
4/5 H&P: ' Uncontrolled hyperglycemia, type 2 diabetes- She may require long-acting insulin'
Laboratory Tests
09/07/24 09/08/24 09/08/24
20:13 08:36 14:54
POC Glucose 342 H 231 H 265 H
Please clarify the relationship between these conditions:
Yes, Lymphedema is related to/associated with/due to Diabetes mellitus.
No, Lymphedema is not related to/associated with/due to Diabetes mellitus
Other
Use of terms such as suspected, likely, concern for, or probable (associated with a specific diagnosis that is being evaluated, monitored, or treated as if it exists) are acceptable and can be coded in the inpatient setting, when documented at the
time of discharge.
Thank you,
Elizabeth Jones RN, BSN
CDI Specialist
[employer]
Please use your independent medical judgment in providing your response.
[2024-09-09 15:13] VITALS: BP 113/57
--- NOTE | 2024-09-09 15:51 | W.PN.ID1 ---
Date of Service
Date of Service: September 09, 2024
Today's Communication
D/C abx.
Assessment / Plan
Worsening left lower extremity edema/lymphedema
-Suspect secondary to noted masses on prior CT
Left lower extremity erythema, likely secondary to edema rather than cellulitis
Leukocytosis
-Suspect secondary to recent G-CSF administration
High-grade/large B-cell lymphoma
-Began chemotherapy this week.
Allergy to Zosyn, levofloxacin, sulfa
A-fib
CAD; Hx [place]
CHF
HTN
Dyslipidemia
IDDM
Hypothyroidism
Chronic lymphedema
Morbid obesity
Recommendations:
Overall doubt cellulits.
D/C zyvox.
Follow white count and temperature curve.
Patient will need ongoing Erik wrap to the lower extremities + LE elevation. Patient counseled extensively on this.
Chief Complaint
-: Cellulitis
Subjective / Review of Systems
Review of Systems: No Fever and No Chills
Vital Signs / Physical Exam
Vital Signs
Vital Signs
Temp Pulse Resp BP Pulse Ox
98.5 F 89 17 113/57 95
09/09/24 15:13 09/09/24 15:13 09/09/24 15:13 09/09/24 15:13 09/09/24 15:13
Physical Exam
Constitutional: No Acute Distress, Comfortable and Obese
Cardiovascular: S1/S2; Negative S3/S4
Pulmonary: Non Labored
Extremities: Edema (4+ LLE edema; 3+ RLE edems) and Erythema (minimal)
Neurological: Awake and Alert
Psychological: Calm
Objective Data
Lab Data
Lab Results
09/09/24 04:15
09/09/24 04:15
ESR 104 mm/hour (0-20) H 09/09/24 04:15
PT 14.7 Sec (11.4-14.6) H 09/07/24 13:59
INR 1.12 09/07/24 13:59
APTT 21.9 Sec (23.4-35.0) L 09/07/24 13:59
Estimated Creat Clear 72 ml/min 09/09/24 04:15
Total Bilirubin 0.8 mg/dl (0.2-1.3) 09/08/24 04:46
AST 17 U/L (14-36) 09/08/24 04:46
ALT 10 U/L (0-35) 09/08/24 04:46
Alkaline Phosphatase 141 U/L (38-126) H 09/08/24 04:46
C-Reactive Protein 34.00 mg/L (0.0-10.00) H 09/09/24 04:15
Most recent labs reviewed.
Micro Results:
09/08/24 00:18 MRSA Screen - Final
Nose No Methicillin Resistant Staphylococcus aureus isolated.
09/08/24 06:15 Blood Culture - Preliminary
Blood/Venous No Growth in 24 hours- Final report to follow
09/08/24 05:19 Blood Culture - Preliminary
Blood/Venous No Growth in 24 hours- Final report to follow
Imaging:
07/13/2024 CT pelvis with contrast: Soft tissue masses are present within both groins which have increased in size compared to previous examinations dating back through September 2022. Specifically, in the left groin anterior to the left common femoral
artery on the left SFA there is a large lobulated mass which measures 8.5 x 8.5 cm x 16 cm craniocaudal. There is also enlargement of the left external iliac and common femoral lymph nodes.
Care Review
Plan reviewed with: Physician (Hospitalist)
--- NOTE | 2024-09-09 15:52 | W.DCSUMMARY ---
Discharge Summary
Discharge Data
Date of Admission: 09/07/24
Date of Discharge: 09/09/24
-
Pending Results: No
Hospital Course
73-year-old female past medical history of non-Hodgkin lymphoma on chemotherapy, diabetes mellitus, atrial fibrillation status post ablation status post Watchman device, chronic HFpEF, pulmonary hypertension, CKD, morbid obesity due to excess
calories, chronic lymphedema, CAD, hyperlipidemia, hypertension, iron deficiency anemia, GERD, obstructive sleep apnea, gout, meningioma s/p radiation craniotomy was presented with left lower extremity worsening lymphedema. Initially concern for
cellulitis and patient was started on broad-spectrum antibiotics with vancomycin and meropenem. due to immunosuppressant state infectious disease was consulted. Blood cultures were checked on admission. MRSA screen was negative. Patient was eval
by infectious disease. Vanco and meropenem was discontinued patient was started on Zyvox. Patient states significant improvement in lower extremity erythema. Patient stated that due to her lymphedema she has noticed chronic changes to the skin.
Patient states of increasing urination with heavy usage of diuretics as outpatient. No erythema or significant cellulitic changes were noted. Discussed case with infectious disease and plan was to discontinue antibiotics. Patient will follow-up
outpatient with wound care. Also recommend to follow-up outpatient with PCP for further diabetes management.
Discharge Plan
-
Patient Disposition: Home with Home Care
Discharge Diagnosis/Procedures: Worsening left lower extremity edema/lymphedema
Condition: Fair
Diet: 2 Gram Sodium, Diabetic, Carb Controlled and Restrict fluids to 48 oz
Activity: With assistance and As tolerated
Driving Restrictions: As prior to admission
Activity Restrictions/Additional Instructions:
Wound Care Instructions Left Heel- Clean with normal saline, apply adaptic, 4x4 and wrap with shari. Change Q 48 hours and PRN for drainage.
Compression with NILAY wraps, re-apply daily
Antifungal powder to groin
barrier ointment to buttocks.
Follow up at wound care center call for an appointment.
Follow-up with primary care doctor for diabetes management
Referrals:
Maria G Maldonado MD [Primary Care Provider] - in less than 1 week
Prescriptions:
Continued
albuterol sulfate 1 PUFF HFA aerosol inhaler
1 puff inhalation R Q4HPRN PRN (Reason: sob/wheezing)
atorvastatin 40 MG tablet
40 mg PO HS
fenofibrate nanocrystallized 48 MG tablet
48 mg PO HS
pantoprazole 40 MG tablet,delayed release (DR/EC)
40 mg PO DAILY
sertraline 50 MG tablet
50 mg PO HS
montelukast 10 MG tablet
10 mg PO DAILY
fluticasone propion-salmeterol [Advair Diskus] 250-50 mcg/dose Blister With Device
1 inh INHALATION R BIDPRN PRN (Reason: sob/wheezing)
spironolactone 25 mg Tablet
25 mg PO DAILY
levothyroxine [Synthroid] 125 mcg Tablet
125 mcg PO DAILY
digoxin 125 mcg (0.125 mg) Tablet
125 mcg PO DAILY
verapamil 240 mg capsule,ext rel. pellets 24 hr
240 mg PO DAILY
metoprolol succinate 25 mg Tablet Extended Release 24 Hr
25 mg PO DAILY Qty: 30 0RF
furosemide 80 mg Tablet
120 mg PO DAILY
furosemide 80 mg Tablet
80 mg PO QPM
metformin 500 mg Tablet Extended Release 24 Hr
1,000 mg PO BID
aspirin 81 mg tablet,delayed release (DR/EC)
81 mg PO DAILY
allopurinol 300 mg Tablet
300 mg PO DAILY
estradiol 0.01 % (0.1 mg/gram) cream
1 appful vaginal MOWEFR
levetiracetam 500 mg Tablet
500 mg PO BID
acetaminophen 650 mg Tablet Extended Release
1,300 mg PO Q8HPRN PRN (Reason: mild pain)
gabapentin 300 mg Capsule
300 mg PO HS
Discharge Orders:
Discharge Patient (As Directed); Ordered 09/09/24
Ordered By: Eugene Christy
Discharge Date and Time
Discharge Date/Time: 09/09/24 17:42
Print Language: MOHAWK
[2024-09-09 16:14] LABS: Glucose - Point of Care 288 mg/dl (70-99)
--- NOTE | 2024-09-10 09:04 | PN.CDI ---
CDI
- -
CDI:
Physician Documentation Request
Admit Date: 09/07/24 17:24
Dear Doctor Jaelyn,
Please review the following and provide your response in the progress notes.
Clinical Indicators:
Pt admitted with Worsening left lower extremity edema/lymphedema
09/07 US Periph Venous LOWER Ext LT/ Doppler of Left Lower Extremity: 'Large hypoechoic left groin mass present measuring up to 14 x 5 x 9 cm, similar to prior and may reflect malignant lymphadenopathy.'
09/09 ID: ' Worsening left lower extremity edema/lymphedema-Suspect secondary to noted masses on prior CT'
Laboratory Tests
09/07/24 09/08/24 09/08/24
20:13 08:36 14:54
POC Glucose 342 H 231 H 265 H
Please clarify the relationship between these conditions:
Lymphedema is multifactorial related to/associated with/due to Non-Hodgkin lymphoma and diabetes mellitus.
Lymphedema is related to/associated with/due to Non-Hodgkin lymphoma.
Lymphedema is related to/associated with/due diabetes mellitus
Lymphedema is not related to/associated with/due to neither Non-Hodgkin lymphoma or diabetes mellitus.
Other
Use of terms such as suspected, likely, concern for, or probable (associated with a specific diagnosis that is being evaluated, monitored, or treated as if it exists) are acceptable and can be coded in the inpatient setting, when documented at the
time of discharge.
Thank you,
Elizabeth Jones RN, BSN
CDI Specialist
Reva Text
Please use your independent medical judgment in providing your response.
== END 2024-09-09 17:42 | disposition home health service (06) | DRG 607 ==
LOC: 3 WEST ACU 17:24
PROVIDERS: Internal Medicine; ADMITTING PHYSICIAN Internal Medicine; ATTENDING PHYSICIAN Hospitalist; CONSULT PHYSICIAN Internal Medicine Infectious Disease; EMERGENCY PHYSICIAN Emergency Medicine; PRIMARYCARE PHYSICIAN Family Medicine
DX: I89.0 Lymphedema, not elsewhere classified (principal); C85.10 Unspecified B-cell lymphoma, unspecified site; I50.32 Chronic diastolic (congestive) heart failure; I13.0 Hypertensive heart and chronic kidney disease with heart failure and stage 1 through stage 4 chronic kidney disease, or unspecified chronic kidney disease; I48.21 Permanent atrial fibrillation; D84.9 Immunodeficiency, unspecified; Z68.41 Body mass index [BMI] 40.0-44.9, adult; D50.9 Iron deficiency anemia, unspecified; E03.9 Hypothyroidism, unspecified; E66.01 Morbid (severe) obesity due to excess calories; E78.00 Pure hypercholesterolemia, unspecified; N18.31 Chronic kidney disease, stage 3a; I25.10 Atherosclerotic heart disease of native coronary artery without angina pectoris; G40.909 Epilepsy, unspecified, not intractable, without status epilepticus; I27.21 Secondary pulmonary arterial hypertension; F32.9 Major depressive disorder, single episode, unspecified; E11.42 Type 2 diabetes mellitus with diabetic polyneuropathy; E53.9 Vitamin B deficiency, unspecified; E11.65 Type 2 diabetes mellitus with hyperglycemia; K21.9 Gastro-esophageal reflux disease without esophagitis; E27.9 Disorder of adrenal gland, unspecified; E11.22 Type 2 diabetes mellitus with diabetic chronic kidney disease; E11.51 Type 2 diabetes mellitus with diabetic peripheral angiopathy without gangrene; M10.9 Gout, unspecified; R19.04 Left lower quadrant abdominal swelling, mass and lump; L89.626 Pressure-induced deep tissue damage of left heel; D63.8 Anemia in other chronic diseases classified elsewhere; G47.33 Obstructive sleep apnea (adult) (pediatric); I27.23 Pulmonary hypertension due to lung diseases and hypoxia; F10.91 Alcohol use, unspecified, in remission; Z96.612 Presence of left artificial shoulder joint; I25.2 Old myocardial infarction; Z92.21 Personal history of antineoplastic chemotherapy; Z92.3 Personal history of irradiation; Z87.891 Personal history of nicotine dependence; Z87.01 Personal history of pneumonia (recurrent); Z86.16 Personal history of COVID-19; Z85.828 Personal history of other malignant neoplasm of skin; Z87.442 Personal history of urinary calculi; Z90.49 Acquired absence of other specified parts of digestive tract; Z95.5 Presence of coronary angioplasty implant and graft; Z79.82 Long term (current) use of aspirin; Z79.4 Long term (current) use of insulin; Z79.84 Long term (current) use of oral hypoglycemic drugs; Z79.890 Hormone replacement therapy; Z88.1 Allergy status to other antibiotic agents; Z88.0 Allergy status to penicillin; Z88.2 Allergy status to sulfonamides
CPT/HCPCS: 80048; 80053; 82962; 85025; 85610; 85652; 85730; 86140; 87040; 87070; 93971; 94640; 96374; 96375; 99284; J2185

== ENCOUNTER → 2024-09-23 10:31 | Outpatient (REF) | payer MEDICARE, SELFPAY ==
[2024-09-23 11:22] LABS: Hematocrit 30.7 % (37.0-47.0); Hemoglobin 9.6 g/dL (12.0-16.0); Mean Corp Hgb Conc. 31.3 g/dL (33.0-37.0); Mean Corpuscular Hgb 26.6 pg (27.0-31.0); Mean Platelet Volume 9.5 fL (7.4-10.4); Platelet Count 230 10^3/uL (130-400); Red Blood Cell Count 3.61 10^6/uL (4.20-5.40); Red Cell Dist. Width 22.5 % (11.5-14.5); White Blood Cell Count 9.9 10^3/uL (4.8-10.8)
[2024-09-23 11:40] LABS: % Basophils 1.5 % (0-2); % Eosinophils 2.8 % (0-6); % Immature Granulocytes 5.1 % (0-0.5); % Lymphocytes 7.5 % (20.5-51.1); % Monocytes 6.7 % (1.7-9.3); % Neutrophils 76.4 % (42.2-75.2); Absolute Basophils 0.2 10^3/uL (0-0.2); Absolute Eosinophils 0.3 10^3/uL (0-0.7); Absolute Immature Granulocytes 0.5 10^3/uL (0-0.05); Absolute Lymphocytes 0.7 10^3/uL (1.2-3.4); Absolute Monocytes 0.7 10^3/uL (0.1-0.6); Absolute Neutrophils 7.6 10^3/uL (1.4-6.5); Nucleated Red Blood Cells % 0.4 %
[2024-09-23 11:50] LABS: ALT (SGPT) < 10 U/L (0-35); AST (SGOT) 14 U/L (14-36); Albumin 3.7 g/dl (3.5-5.0); Alkaline Phosphatase 112 U/L (38-126); Blood Urea Nitrogen 20 mg/dl (7-17); Calcium 8.9 mg/dl (8.4-10.2); Carbon Dioxide 27 mmol/L (22-30); Chloride 103 mmol/L (98-107); Glucose 282 mg/dl (70-99); Potassium 3.8 mmol/L (3.5-5.1); Sodium 143 mmol/L (135-145); Total Bilirubin 0.7 mg/dl (0.2-1.3); Total Protein 6.1 g/dl (6.3-8.2); eGFR > 60.00
== END ==
LOC: REG 10:31
PROVIDERS: ATTENDING PHYSICIAN Internal Medicine Hematology & Oncology
DX: R19.04 Left lower quadrant abdominal swelling, mass and lump (principal); I89.0 Lymphedema, not elsewhere classified; D48.19 Other specified neoplasm of uncertain behavior of connective and other soft tissue; I65.21 Occlusion and stenosis of right carotid artery; L03.90 Cellulitis, unspecified; Z86.73 Personal history of transient ischemic attack (TIA), and cerebral infarction without residual deficits; C83.30 Diffuse large B-cell lymphoma, unspecified site
CPT/HCPCS: 36415; 80053; 85025

== ENCOUNTER → 2024-10-01 10:10 | Outpatient (REF) | payer MEDICARE, SELFPAY ==
[2024-10-01 10:49] LABS: Hematocrit 29.3 % (37.0-47.0); Mean Corp Hgb Conc. 30.7 g/dL (33.0-37.0); Mean Corpuscular Hgb 26.3 pg (27.0-31.0); Mean Corpuscular Volume 85.7 fL (81.0-99.0); Mean Platelet Volume 9.4 fL (7.4-10.4); Platelet Count 245 10^3/uL (130-400); Red Blood Cell Count 3.42 10^6/uL (4.20-5.40); Red Cell Dist. Width 22.6 % (11.5-14.5); White Blood Cell Count 10.6 10^3/uL (4.8-10.8)
[2024-10-01 11:08] LABS: ALT (SGPT) < 10 U/L (0-35); AST (SGOT) 10 U/L (14-36); Albumin 3.3 g/dl (3.5-5.0); Alkaline Phosphatase 134 U/L (38-126); Blood Urea Nitrogen 28 mg/dl (7-17); Calcium 9.2 mg/dl (8.4-10.2); Carbon Dioxide 29 mmol/L (22-30); Chloride 103 mmol/L (98-107); Glucose 175 mg/dl (70-99); LDH 203 U/L (120-246); Potassium 3.3 mmol/L (3.5-5.1); Sodium 142 mmol/L (135-145); Total Bilirubin 0.5 mg/dl (0.2-1.3); Total Protein 5.8 g/dl (6.3-8.2); Uric Acid 9.1 mg/dl (2.5-6.2); eGFR > 60.00
[2024-10-01 12:02] LABS: Absolute Neutrophils -Man Diff 8.4 10^3/uL (1.4-6.5); Band Neutrophils 8 % (0-3); Eosinophils 9 % (0-6); Lymphocytes 5 % (20-51); Monocytes 4 % (2-9); Segmented Neutrophils 72 % (42-75)
[2024-10-01 12:03] LABS: Acanthocytes 1+; Anisocytosis 1+; Basophilic Stippling 1+; Hypochromasia 1+; Normal RBC Morphology No; Nucleated Red Blood Cells 1 (-); Ovalocytes 1+; Platelets Checked Yes; Polychromasia 1+; Stomatocytes FEW
[2024-10-01 12:04] LABS: Total Cells Counted 100
== END ==
LOC: REG 10:10
PROVIDERS: ATTENDING PHYSICIAN Internal Medicine Hematology & Oncology; FAMILY PHYSICIAN Internal Medicine
DX: R19.04 Left lower quadrant abdominal swelling, mass and lump (principal); I89.0 Lymphedema, not elsewhere classified; D48.19 Other specified neoplasm of uncertain behavior of connective and other soft tissue; L03.90 Cellulitis, unspecified; C83.30 Diffuse large B-cell lymphoma, unspecified site; I65.21 Occlusion and stenosis of right carotid artery; Z86.73 Personal history of transient ischemic attack (TIA), and cerebral infarction without residual deficits
CPT/HCPCS: 36415; 80053; 83615; 84550; 85025

== ENCOUNTER 2024-10-15 15:58 | Inpatient (IN) | payer MEDICARE, SELFPAY ==
[2024-10-15] VITALS (16 sets, daily range): BP systolic 97–120; BP diastolic 55–72; BMI 43.1; BMI 45.2
--- NOTE | 2024-10-15 10:10 | ED.GENMED ---
History of Present Illness
General
Chief Complaint: Breathing Problem
Source: patient and ambulance crew
Exam Limitations: none
Time Seen by Provider: 10/15/24 10:05
History of Present Illness
History of Present Illness:
See MDM
Past History
Past History
ED Past Medical History: Arrthythmia (Atrial fibrillation), Asthma, CAD, Cancer (Skin, meningioma grade 2 with radiation therapy and craniotomy), CHF, COPD, HTN, Hypercholesterolemia, NIDDM, AL, Hypothyroidism, Psychiatric (Major depression), Other
(PNA, Cellulitis, Chronic Lymphedema, bilateral heel ulcerations, osteomyelitis of the left heel, morbid obesity) and Other (Sepsis, peripheral neuropathy, anemia, rosacea, COVID 19, seizure disorder, pulmonary artery hypertension, nephrolithiasis,
B complex deficiency, prior acute respiratory failure); Negative Renal failure (Stage IIIa)
ED Past Surgical History: Brain (Right frontal craniotomy for meningioma 2022), Cardiac (cardioversion, Stents X 2, Watchman device), Cholecystectomy (1982), Orthopedic (Left reverse shoulder arthroplasty December 2023), Urological (Bladder repair,
kidney stone extraction) and Other (Right femoral artery cannulation January 2024, Mohs surgery forehead 2021)
Social History
Tobacco: Former smoker
Alcohol: Daily (Vodka 1 large glass)
Drug: None
Personal:
Living: alone
Employment: Retired
Family History
Family History: Hypertension
Phy Exam
Physical Exam
Physical Exam:
See MDM
Scores
Heart Failure Risk
Heart Failure Risk Score: Yes
History of Stroke or TIA: No
History of intubation for respiratory distress: No
Heart rate on ED arrival >/= 110: No
SaO2 <90% on arrival on room air: Yes
HR >/=110 during 3min walk test (or too ill to perform test): Yes
ECG has acute ischemic changes: No
Urea >/=12mmol/L (BUN 33.6mg/dL): No
Serum CO2>/=35mmol/L: No
Troponin I or T elevated to AL Level (0.4mg/dL): No
NT-proBNP >/=5,000ng/L (5,000pg/ml): No
HF Risk Score: 3
Admission Status: HIGH RISK 15.9% Consider SNF treatment or admission to hospital
Course
Orders/Labs/Results
Orders:
Orders
10/15/24 10:09
Electrocardiogram (*1) Urgent
Reason for Study: Shortness of Breath
EKG- Treatment ONCE
CR Chest Portable - 1 View Urgent
Comment:
Reason For Exam: SOB
Reason Study Needs to be Portable: Patient Unstable
10/15/24 10:11
Complete Blood Count/With Diff Urgent
Comprehensive Metabolic Panel Urgent
NT-proBNP Urgent
Troponin I Urgent
10/15/24 11:24
Furosemide [Lasix] 80 mg IV NOW STA
Abnormal Lab Results
10/15/24
10:11
RBC 3.26 L 10^6/uL
(4.20-5.40)
Hgb 8.7 L g/dL
(12.0-16.0)
Hct 28.7 L %
(37.0-47.0)
MCH 26.7 L pg
(27.0-31.0)
MCHC 30.3 L g/dL
(33.0-37.0)
RDW 23.5 H %
(11.5-14.5)
Abs Immat Gran (auto) 0.1 H 10^3/uL
(0-0.05)
Absolute Neuts (auto) 8.8 H 10^3/uL
(1.4-6.5)
Absolute Lymphs (auto) 0.6 L 10^3/uL
(1.2-3.4)
Absolute Monos (auto) 0.7 H 10^3/uL
(0.1-0.6)
Immature Gran % 1.1 H %
(0-0.5)
Neutrophils % 83.0 H %
(42.2-75.2)
Lymphocytes % 5.9 L %
(20.5-51.1)
Carbon Dioxide 34 H mmol/L
(22-30)
BUN 22 H mg/dl
(7-17)
Glucose 296 H mg/dl
(70-99)
AST 10 L U/L
(14-36)
Total Protein 5.5 L g/dl
(6.3-8.2)
Albumin 3.1 L g/dl
(3.5-5.0)
10/15/24 10:11
10/15/24 10:11
Vital Signs
Initial and Last Documented VS:
Initial Vital Signs
BP
98/57
10/15/24 10:05
Last Documented Vital Signs
Temp Pulse Resp BP Pulse Ox
98.5 F 99 22 98/57 97
10/15/24 10:09 10/15/24 10:09 10/15/24 10:09 10/15/24 10:09 10/15/24 10:09
MDM/Problems Addressed
Differential Diagnosis Includes:
HPI and MDM Narrative:
74-year-old female presenting with worsening shortness of breath. This is progressed through the past several days. Given her prior history, patient is concern for pleural effusions. She has noted that both legs are becoming more edematous. On
exam, patient does have crackles at bases. She has +2 pitting edema in bilateral lower extremities.
EMS indicated that sugar was 351. Patient acknowledges that she has a history of diabetes and ate 2 donuts for breakfast
Given her history, will obtain x-ray and EKG. Clinical concern for congestive heart failure exacerbation
Patient found to be hypoxic to 78% on room air. Patient has been on oxygen as needed in the past. Will place on supplemental oxygen
Physical exam
General: Mildly uncomfortable
HEENT: protecting airway
Neck: appears supple
CV: No evidence of cyanosis. Tachycardic and irregular
Resp: No accessory muscle use. Crackles at bases
Abd: Non-distended
Extremities: +2 pitting edema bilateral lower extremities
Neuro: alert
Psych: Normal affect
Skin: Intact
Problems Addressed including Acute and Chronic Conditions affecting care:
1. Shortness of breath
Acuity: acute
Prognosis: stable
Details: Given prior history, will obtain chest x-ray and BNP for clinical concern for acute CHF exacerbation
Updates
Chest x-ray consistent with pulmonary edema. Patient states her medical physics researcher has recently increased her Lasix. She thinks she is on 100 mg in the morning and 40 mg in the evening. She is unsure if she got the appropriate dose of Lasix last night.
Given her pulmonary edema and hypoxia, will give 80 mg IV
Differential Diagnosis (but not limited to): Congestive heart failure, pulmonary edema, pleural effusions, pneumonia
Testing considered: D-dimer
Drug therapy (if applicable): OTC meds, please see d/c instruction regarding Rx drugs
Amount and/or Complexity of Data Reviewed
Clinical info obtained from: Patient
External data reviewed: N/A
Labs I independently reviewed (but not limited to): Elevated BNP, creatinine within normal limits
Radiology: X-ray independently reviewed: Chest x-ray consistent with pulmonary edema
Pulse Ox: hypoxic
EKG independently reviewed: A-fib, right bundle branch block, no STEMI
Die Forger: A-fib
Critical Care: The high probability of a clinically significant, sudden or life threatening deterioration of the cardiopulmonary system(s) required my full and direct attention, intervention and personal management. The aggregate critical care time
was 35 minutes. This time is in addition to time spent performing reported procedures but includes the following:
[x] Data Review and interpretation
[x] Patient assessment and monitoring of vital signs
[x] Documentation
[x] Medication orders and management
Risk of Complication:
Social Determinants of health: Good social support
Discussed with other providers: Hospitalist
Escalation of Care includes Admit/Obs: Given pulmonary edema and hypoxia, will admit on oxygen and IV Lasix
Occasional wrong word or 'sound a like' substitutions may have occurred due to the inherent limitations of voice recognition software. Read the chart carefully and recognize, using context, where substitutions have occurred.
*Critical Care Note
Total Time (30-74mins, 75-104mins- exclusive of procedures): 35 min
ED Attending Note
-
Portions of this chart may have been created with voice recognition software.� Occasional wrong word or��sound alike� substitutions may have occurred due to the inherent limitations of voice recognition software.
Discharge Plan
Departure
Patient Disposition: Admit
Date of Disposition: 10/15/24
Time of Disposition: 11:26
Admit to: Telemetry
Presentation/result/management discussed w/ accepting MD/DO: Hospitalist
Discharge Problem:
Pulmonary edema, Hypoxia, Acute CHF
Prescriptions:
No Action
albuterol sulfate 1 PUFF HFA aerosol inhaler
1 puff inhalation R Q4HPRN PRN (Reason: sob/wheezing)
atorvastatin 40 MG tablet
40 mg PO HS
fenofibrate nanocrystallized 48 MG tablet
48 mg PO HS
pantoprazole 40 MG tablet,delayed release (DR/EC)
40 mg PO DAILY
sertraline 50 MG tablet
50 mg PO HS
montelukast 10 MG tablet
10 mg PO DAILY
fluticasone propion-salmeterol [Advair Diskus] 250-50 mcg/dose Blister With Device
1 inh INHALATION R BIDPRN PRN (Reason: sob/wheezing)
spironolactone 25 mg Tablet
25 mg PO DAILY
levothyroxine [Synthroid] 125 mcg Tablet
125 mcg PO DAILY
digoxin 125 mcg (0.125 mg) Tablet
125 mcg PO DAILY
verapamil 240 mg capsule,ext rel. pellets 24 hr
240 mg PO DAILY
metoprolol succinate 25 mg Tablet Extended Release 24 Hr
25 mg PO DAILY Qty: 30 0RF
furosemide 80 mg Tablet
40 mg PO DAILY
Rx Instructions:
AT NOON
furosemide 80 mg Tablet
60 mg PO BID
metformin 500 mg Tablet Extended Release 24 Hr
1,000 mg PO BID
aspirin 81 mg tablet,delayed release (DR/EC)
81 mg PO DAILY
allopurinol 300 mg Tablet
300 mg PO DAILY
estradiol 0.01 % (0.1 mg/gram) cream
1 appful vaginal MOWEFR
acetaminophen 650 mg Tablet Extended Release
1,300 mg PO Q8HPRN PRN (Reason: mild pain)
insulin glargine 100 unit/mL Solution
3 unit SC HS
linezolid 600 mg Tablet
600 mg PO BID
zolpidem 12.5 mg Tablet,Ext Release Multiphase
12.5 mg PO HS PRN (Reason: sleep)
Referrals:
Betsy Heard NP [Family Provider] -
Interventions
Interventions:
*Risk Screen - Suicide Last Done: 10/15/24 10:09
*General Assessment Last Done: 10/15/24 10:09
*Neglect/Abuse Screening Last Done: 10/15/24 10:09
*ED- Fall Risk Assessment Last Done: 10/15/24 10:09
*ED COVID-19 Vaccine History Last Done: 10/15/24 10:09
ED- Cardiac Assessment Last Done: 10/15/24 10:09
ED- Pulmonary Assessment Last Done: 10/15/24 10:09
Discharge Date and Time
Print Language: CROATIAN
[2024-10-15 10:29] LABS: % Eosinophils 2.1 % (0-6); % Immature Granulocytes 1.1 % (0-0.5); % Lymphocytes 5.9 % (20.5-51.1); % Monocytes 6.9 % (1.7-9.3); Absolute Basophils 0.1 10^3/uL (0-0.2); Absolute Eosinophils 0.2 10^3/uL (0-0.7); Absolute Immature Granulocytes 0.1 10^3/uL (0-0.05); Absolute Lymphocytes 0.6 10^3/uL (1.2-3.4); Absolute Monocytes 0.7 10^3/uL (0.1-0.6); Absolute Neutrophils 8.8 10^3/uL (1.4-6.5); Hematocrit 28.7 % (37.0-47.0); Hemoglobin 8.7 g/dL (12.0-16.0); Mean Corp Hgb Conc. 30.3 g/dL (33.0-37.0); Mean Corpuscular Hgb 26.7 pg (27.0-31.0); Mean Platelet Volume 9.4 fL (7.4-10.4); Nucleated Red Blood Cells % 0.2 %; Platelet Count 245 10^3/uL (130-400); Red Blood Cell Count 3.26 10^6/uL (4.20-5.40); Red Cell Dist. Width 23.5 % (11.5-14.5); White Blood Cell Count 10.6 10^3/uL (4.8-10.8)
[2024-10-15 10:33] LABS: ALT (SGPT) < 10 U/L (0-35); AST (SGOT) 10 U/L (14-36); Albumin 3.1 g/dl (3.5-5.0); Alkaline Phosphatase 101 U/L (38-126); Blood Urea Nitrogen 22 mg/dl (7-17); Calcium 8.8 mg/dl (8.4-10.2); Carbon Dioxide 34 mmol/L (22-30); Chloride 106 mmol/L (98-107); Estimated Creatinine Clearance 82 ml/min; Glucose 296 mg/dl (70-99); Potassium 4.1 mmol/L (3.5-5.1); Sodium 143 mmol/L (135-145); Total Bilirubin 0.5 mg/dl (0.2-1.3); Total Protein 5.5 g/dl (6.3-8.2); eGFR > 60.00
[2024-10-15 10:45] LABS: NT-proBNP 3570 pg/ml; Troponin I < 0.012 ng/ml
[2024-10-15] MEDS: LASIX 80 MG IV (12:01)
[2024-10-15 12:36] LABS: Anisocytosis 1+; Hypochromasia 1+; Macrocytosis 1+; Normal RBC Morphology No
--- NOTE | 2024-10-15 15:56 | HPS.HSE ---
Family Physician
-
Family Physician: Betsy Heard
Chief Complaint
-
Shortness of breath, bilateral leg swelling.
History of Present Illness
73-year-old woman with past medical history significant for non-Hodgkin's lymphoma on chemotherapy, atrial fibrillation s/p Watchman, HFpEF, CAD, COPD, hypertension, hypercholesterolemia, NIDDM, CKD stage IIIa presented to the ER reporting shortness
of breath and pedal edema. Patient reports that the symptoms have started a week ago, but in the last 2 days they have worsened to an extent that she was not able to move from one room to another at home. Patient was advised by her vacuum cleaner repair person to
increase the dose of Lasix, yet patient did not have sufficient urine output and her dyspnea has not improved. Patient was orthopneic. She denies chest pain, abdominal pain, nausea/vomiting, lightheadedness, fevers, calf pain. Patient has been
receiving chemotherapy for her non-Hodgkin's lymphoma, finished 2 treatments, last chemo was 3 weeks ago and she is due for next session tomorrow.
Medical History
Past Medical History
Past Medical History: Reports Arrhythmia, CAD, CHF, COPD, HTN, Hypercholesterolemia, Hypothyroidism, NIDDM and Renal Failure
Past Surgical History: Reports Cholecystectomy, Orthopedic and Urological
Social History
Tobacco: Former Smoker
Alcohol: Former
Drug: None
Personal:
Living: With Family
Family History
Family History: Hypertension
Allergies / Home Medications
Allergies reflects when Allergies were last updated in [employer].
Home Medications with original date entered in [employer]
Allergy/Medication List:
Allergies
Allergy/AdvReac Type Severity Reaction Status Date / Time
cat dander Allergy ASTHMA/SOB Verified 07/10/24 22:16
levofloxacin Allergy Hives Verified 07/10/24 22:16
[From Levaquin Leva-Carlos]
Penicillins Allergy Shortness Verified 07/10/24 22:16
of Breath
piperacillin Allergy Anaphylaxis, Verified 07/10/24 22:16
acute
hypoxemic
resp f,
hypotensitching
01/25/24
Sulfa (Sulfonamide Allergy Hives Verified 07/10/24 22:16
Antibiotics)
vancomycin [Vancomycin] Allergy Rash/red Verified 07/10/24 22:16
tino
syndrome
Home Medications
albuterol sulfate 90 mcg/actuation aerosol inhaler 2 puff inhalation R Q4HPRN PRN sob/wheezing 09/27/19
atorvastatin 40 mg tablet 40 mg PO HS High cholesterol 04/23/21
fenofibrate nanocrystallized 48 mg tablet 48 mg PO HS High cholesterol 07/13/21
montelukast 10 mg tablet 10 mg PO DAILY Allergies 11/30/21
pantoprazole 40 mg tablet,delayed release 40 mg PO DAILY Gastrointestinal issue 11/30/21
sertraline 50 mg tablet 50 mg PO HS Depression 11/30/21
digoxin 125 mcg (0.125 mg) tablet 125 mcg PO DAILY Heart Disease/Condition 08/22/23
fluticasone 250 mcg-salmeterol 50 mcg/dose blistr powdr for inhalation (Advair Diskus) 1 inh inhalation R BIDPRN PRN sob/wheezing 08/22/23
levothyroxine 125 mcg tablet (Synthroid) 125 mcg PO DAILY Thyroid 08/22/23
spironolactone 25 mg tablet 25 mg PO DAILY Heart Failure 08/22/23
verapamil 240 mg 24 hr capsule,extended release 240 mg PO DAILY Blood Pressure 11/04/23
metoprolol succinate 25 mg tablet,extended release 24 hr 25 mg PO DAILY #30 tabs 11/06/23
aspirin 81 mg tablet,delayed release 81 mg PO DAILY Blood Clot Prevention/Tx 06/17/24
furosemide 80 mg tablet 80 mg PO NOON Fluid Retention/Swelling 06/17/24
furosemide 80 mg tablet 120 mg PO DAILY Fluid Retention/Swelling 06/17/24
metformin 500 mg tablet,extended release 24 hr 1,000 mg PO BID Diabetes 06/17/24
acetaminophen 650 mg tablet,extended release 1,300 mg PO Q8HPRN PRN mild pain 09/07/24
allopurinol 300 mg tablet 300 mg PO DAILY 09/07/24
estradiol 0.01% (0.1 mg/gram) vaginal cream (Estrace) 1 appful vaginal MOTH 10/15/24
insulin glargine 100 unit/mL subcutaneous solution 3 unit SC HS 10/15/24
potassium chloride 20 mEq tablet,extended release 20 meq PO BID 10/15/24
prochlorperazine maleate 10 mg tablet (Compazine) 10 mg PO BIDPRN PRN nausea 10/15/24
therapeutic multivitamin 1 tab PO DAILY 10/15/24
zolpidem 12.5 mg tablet,extended release,multiphase 12.5 mg PO HSPRN PRN sleep 10/15/24
Review of Systems
-
A 12 point ROS was completed and negative except as noted: Yes
Physical Exam
Vital Signs
Vital Signs
Temp Pulse Resp BP Pulse Ox
97.6 F 91 20 97/72 974
10/15/24 15:18 10/15/24 15:18 10/15/24 15:18 10/15/24 15:18 10/15/24 15:18
Physical Exam
General: Well Developed and Well Nourished
HEENT: NormoCephalic, Anicteric, Moist mucous membranes and Oxygen (On 5 L NC)
Respiratory: Crackles
Cardiac: S1/S2, Irregular Rhythm and Peripheral Edema (2+ pitting edema bilateral lower extremities)
GI: Soft, Non Tender and Distended
Skin: Warm, Dry and Other (Left foot wound)
Neuro: Awake, Alert, Oriented and AO x 3
Laboratory Results
-
10/15/24 10:11
10/15/24 10:11
Laboratory Results
Total Bilirubin 0.5 mg/dl (0.2-1.3) 10/15/24 10:11
AST 10 U/L (14-36) L 10/15/24 10:11
ALT < 10 U/L (0-35) 10/15/24 10:11
Alkaline Phosphatase 101 U/L (38-126) 10/15/24 10:11
Troponin I < 0.012 ng/ml 10/15/24 10:11
Impression/Plan
-
IMPRESSION:
74-year-old female admitted for management of acute exacerbation of HFpEF.
PLAN:
#Acute exacerbation of HFpEF
Patient clinically appears volume overloaded
Currently on 5 L NC, wean as tolerated
Troponin�WNL
proBNP�3570, ranged from 8924-4195 in the last 1 year.
Chest x-ray� mild pulmonary interstitial edema.
Recent echo on 07/15/2024�ejection fraction of 50 to 55%, biatrial enlargement, right ventricular enlargement.
Home regimen�Lasix, Aldactone, metoprolol, not on SGLT2.
Will start Bumex 4 mg IV twice daily.
Acetazolamide 250 mg, IV, 1 dose.
Will order echo
Cardiology consulted
Monitor I/os, daily weights
Fluid/sodium restriction.
Recheck electrolytes
Monitor telemetry
#Permanent A-fib
s/p ablation and Watchman
Continue verapamil, metoprolol succinate, digoxin.
No longer anticoagulated.
Monitor telemetry
#Non-Hodgkin's lymphoma
Received 2 chemotherapy sessions with G�CSF, due for third treatment tomorrow
Follow-up with Dr. Mejía from oncology
# Essential hypertension
Continue metoprolol, spironolactone, verapamil
Blood pressure stable
#NIDDM
Continue metformin
Patient was receiving steroids during her chemotherapy.
Reports her blood glucose at home has been fluctuating
Will add LSSI
Will check A1c
#CAD s/p PCI X2
Continue metoprolol, atorvastatin, aspirin
#Anemia
She is at baseline ranging 8�10
With recent diagnosis of NHL, suspect anemia of chronic disease
Will monitor hemoglobin for now
#CKD stage III
Baseline creatinine at 0.9
Trend BMP
#Hypothyroidism
Continue levothyroxine
#Gout
Continue allopurinol
DVT prophylaxis�Lovenox subcu
Full code
--- NOTE | 2024-10-15 15:58 | CON.CAR ---
Addendum entered and electronically signed by Reese Denny MD 10/15/24 16:28:
I saw and examined the patient.
The WASHING AND SCREENING PLANT SUPERVISOR's note was reviewed and I agree with the note.
Comment: 74-year-old female (known to Dr. Jonas, her primary sharepoint engineer), with HFpEF, permanent atrial fibrillation (Watchman), CAD with prior PCI, mitral regurgitation, tricuspid regurgitation, TIA, PAD, carotid stenosis, NIDDM,
hypertension, hypercholesterolemia, and non-Hodgkin's lymphoma currently receiving chemotherapy who presented to the emergency department with a chief complaint of shortness of breath.
- IV diuresis
Original Note:
Consultation
Consultation Request
Date/Time Consultation Requested: 10/15/2024 15:30
Date/Time Consultation Performed: 10/15/2024 15:50
Requesting Provider: Dr. Cynthia Ramirez [ Resident]
Performing Provider: DB Diggs for Dr. Denny
Reason for Consultation: Acute on chronic HF
Medical History
-
Chief Complaint: Shortness of breath
History of Present Illness:
Patricia Clark is a 74-year-old female (known to Dr. Jonas, her primary sharepoint engineer), with HFpEF, permanent atrial fibrillation (Watchman), CAD with prior PCI, mitral regurgitation, tricuspid regurgitation, TIA, PAD, carotid stenosis,
NIDDM, hypertension, hypercholesterolemia, and non-Hodgkin's lymphoma currently receiving chemotherapy who presented to the emergency department with a chief complaint of shortness of breath. This has progressed over several days prior to arrival.
She endorsed associated worsening swelling of her lower extremities. She endorses medication adherence with furosemide. She thinks she may have been drinking more fluid than usual. No changes in her sodium intake. On 10/01/2024, her son called the
outpatient cardiology office reporting weight gain and shortness of breath. At that time she was on furosemide 120 mg in the morning and 80 mg in the evening. Her furosemide was increased to 160 mg twice daily for 3 days. With that dose her
swelling and breathing improved. On 10/11/2024 her son called back and reported that the swelling had returned. On exam, she appears volume overloaded. She endorses orthopnea. No chest pain.
Past Medical History
Past Medical History: Arrhythmias (Permanent atrial fibrillation [Watchman]), Asthma, CAD, Cancer (Non-Hodgkin's lymphoma), CHF, HTN, Hypercholesterolemia, NIDDM, Valvular Disease (Mitral regurgitation, tricuspid regurgitation) and Other (TIA,
carotid stenosis)
Past Surgical History: Brain (Meningioma [[facility], 2022]), Orthopedic, Tonsilectomy and Urological
Social History
Tobacco: Former Smoker
Living: With Family (Son & DIL)
Employment: Retired
Family History
Family History: Reviewed & Not Pertinent
Allergies / Home Medications
Allergy/AdvReac Type Severity Reaction Status Date / Time
cat dander Allergy ASTHMA/SOB Verified 07/10/24 22:16
levofloxacin Allergy Hives Verified 07/10/24 22:16
[From Levaquin Leva-Carlos]
Penicillins Allergy Shortness Verified 07/10/24 22:16
of Breath
piperacillin Allergy Anaphylaxis, Verified 07/10/24 22:16
acute
hypoxemic
resp f,
hypotensitching
01/25/24
Sulfa (Sulfonamide Allergy Hives Verified 07/10/24 22:16
Antibiotics)
vancomycin [Vancomycin] Allergy Rash/red Verified 07/10/24 22:16
tino
syndrome
�Medication �Instructions �Recorded �Confirmed �Type
albuterol sulfate 90 mcg/actuation 2 puff inhalation R Q4HPRN PRN 09/27/19 10/15/24 History
aerosol inhaler sob/wheezing
atorvastatin 40 mg tablet 40 mg PO HS High cholesterol 04/23/21 10/15/24 History
fenofibrate nanocrystallized 48 mg 48 mg PO HS High cholesterol 07/13/21 10/15/24 History
tablet
montelukast 10 mg tablet 10 mg PO DAILY Allergies 11/30/21 10/15/24 History
pantoprazole 40 mg tablet,delayed 40 mg PO DAILY Gastrointestinal 11/30/21 10/15/24 History
release issue
sertraline 50 mg tablet 50 mg PO HS Depression 11/30/21 10/15/24 History
digoxin 125 mcg (0.125 mg) tablet 125 mcg PO DAILY Heart 08/22/23 10/15/24 History
Disease/Condition
fluticasone 250 mcg-salmeterol 50 1 inh inhalation R BIDPRN PRN 08/22/23 10/15/24 History
mcg/dose blistr powdr for sob/wheezing
inhalation (Advair Diskus)
levothyroxine 125 mcg tablet 125 mcg PO DAILY Thyroid 08/22/23 10/15/24 History
(Synthroid)
spironolactone 25 mg tablet 25 mg PO DAILY Heart Failure 08/22/23 10/15/24 History
verapamil 240 mg 24 hr 240 mg PO DAILY Blood Pressure 11/04/23 10/15/24 History
capsule,extended release
metoprolol succinate 25 mg 25 mg PO DAILY #30 tabs 11/06/23 10/15/24 Rx
tablet,extended release 24 hr
aspirin 81 mg tablet,delayed 81 mg PO DAILY Blood Clot 06/17/24 10/15/24 History
release Prevention/Tx
furosemide 80 mg tablet 80 mg PO NOON Fluid 06/17/24 10/15/24 History
Retention/Swelling
furosemide 80 mg tablet 120 mg PO DAILY Fluid 06/17/24 10/15/24 History
Retention/Swelling
metformin 500 mg tablet,extended 1,000 mg PO BID Diabetes 06/17/24 10/15/24 History
release 24 hr
acetaminophen 650 mg 1,300 mg PO Q8HPRN PRN mild pain 09/07/24 10/15/24 History
tablet,extended release
allopurinol 300 mg tablet 300 mg PO DAILY 09/07/24 10/15/24 History
estradiol 0.01% (0.1 mg/gram) 1 appful vaginal MOTH 10/15/24 10/15/24 History
vaginal cream (Estrace)
insulin glargine 100 unit/mL 3 unit SC HS 10/15/24 10/15/24 History
subcutaneous solution
potassium chloride 20 mEq 20 meq PO BID 10/15/24 10/15/24 History
tablet,extended release
prochlorperazine maleate 10 mg 10 mg PO BIDPRN PRN nausea 10/15/24 10/15/24 History
tablet (Compazine)
therapeutic multivitamin 1 tab PO DAILY 10/15/24 10/15/24 History
zolpidem 12.5 mg tablet,extended 12.5 mg PO HSPRN PRN sleep 10/15/24 10/15/24 History
release,multiphase
Review of Systems
-
History Source: Patient
All other systems: Negative unless noted
Constitutional: Fatigue
EENT: No Symptoms
Respiratory: Trouble Breathing
Cardiac: No Symptoms
Abdomen/GI: No Symptoms
: No Symptoms
Musculoskeletal: Edema
Skin: No Symptoms
Neurological: No Symptoms
Endocrine: No Symptoms
Hematologic/Lymphatic: No Symptoms
Physical Exam
Vital Signs
Temp Pulse Resp BP Pulse Ox
97.6 F 91 20 97/72 974
10/15/24 15:18 10/15/24 15:18 10/15/24 15:18 10/15/24 15:18 10/15/24 15:18
Lab Results
10/15/24 10:11
10/15/24 10:11
Troponin I < 0.012 ng/ml 10/15/24 10:11
Qfe-Q-Ewyubdvigap Pept 3570 pg/ml 10/15/24 10:11
Physical Exam
General: Well Developed, Well Nourished, No Apparent Distress and Comfortable
HEENT: Normocephalic, Anicteric and Moist Mucous Membranes
Respiratory: Clear and Non Labored Respirations
Cardiac: S1/S2, Irregular Rhythm and Peripheral Edema (+3 pitting BL LE)
Breast: Deferred by me
GI: Soft, Non Tender, Non Distended and Normal Bowel Sounds
Rectal: Deferred by Provider
Genito-urinary: No Costovertebral Tender
Musculoskeletal: No Clubbing and No Cyanosis
Skin: Warm and Dry
Neuro: AO x 3
Hematologic/Lymphatic: No Lymphadenopathy
Psych: Calm
Impression / Plan
-
I/P: 74F presented with shortness of breath and associated lower extremity swelling. Cardiology was consulted for acute on chronic HFpEF.
Primary sharepoint engineer: Dr. Jonas
HFpEF, acute on chronic
- Volume overloaded on exam
- Was on furosemide 120 in a.m., 80 mg in p.m. at home
- Diuresis with bumetanide IV, this requires intensive monitoring
- Denies recent UTIs, consider SGLT2
- Echocardiogram
- Heart failure education
- Trend daily weight, I/O, and BMP with diuresis
Atrial fibrillation, permanent
- No plans to restore sinus rhythm
- Ablation with Dr. Farley in 2021 & PVI 2016
- Anticoagulation: Watchman (08/2023) with ASA
CAD, chronic, stable without chest pain
- Continue current medical therapy (ASA, statin)
- PCI 1996
Moderate to severe TR, update TTE
Non-Hodgkin's lymphoma
- Completed 2 cycles of mini R�CHOP chemotherapy
- Plan is for PET prior to cycle 4
- Managed by Dr. Mejía, she is due for chemotherapy tomorrow
PAD with nonhealing wound
Lymphedema, bilateral lower extremity, chronic
Carotid stenosis, 50-69% left & >70% right, follows with Dr. Joy
Prior TIA
Meningioma resection and craniotomy ([facility], 2022)
NIDDM, per primary
Obesity, BMI 43, she would benefit from weight loss
Data Reviewed
-
EKG: Report Reviewed by me (Atrial fibrillation with RVR, RBBB, rate 104)
Radiology: Report Reviewed by me (CXR: Suspect mild pulmonary interstitial edema and/or pneumonitis. Cannot rule out component of underlying chronic interstitial lung disease)
Medical Tests (Nuc Med, Echo etc): Report Reviewed by me
Labs: Labs Reviewed by me
Old Records: Reviewed
--- NOTE | 2024-10-15 16:23 | EDRN ---
the pts 02 was titrated from 6L to 4L NC Sp02 96%
--- NOTE | 2024-10-15 16:30 | EDRN ---
this RN called the receiving unit and notified them that paper report was tubed up
[2024-10-15] MEDS: DIAMOX 2.5 MG IV (16:44)
[2024-10-15 18:15] LABS: Glucose - Point of Care 197 mg/dl (70-99)
[2024-10-15] MEDS: GLUCOPHAGE XR EXTENDED RELEASE 1000 MG PO (18:44)
[2024-10-15] MEDS: LOVENOX 40 MG SC (18:45)
[2024-10-15] MEDS: ADVAIR HFA 115/21 MCG INHALER 2 PUFF INH (19:17)
[2024-10-15 21:10] LABS: Glucose - Point of Care 239 mg/dl (70-99)
[2024-10-15] MEDS: LIPITOR 40 MG PO (22:41)
[2024-10-15] MEDS: TRICOR 48 MG PO (22:42)
[2024-10-15] MEDS: ZOLOFT 50 MG PO (22:42)
[2024-10-16] VITALS (8 sets, daily range): BP systolic 104–132; BP diastolic 41–66; PULSE 101–102; O2SAT 90–93; BMI 45.1
[2024-10-16] MEDS: SYNTHROID 125 MCG PO (05:54)
[2024-10-16 06:59] LABS: Glucose - Point of Care 164 mg/dl (70-99)
[2024-10-16 07:00] LABS: Hematocrit 28.1 % (37.0-47.0); Hemoglobin 8.5 g/dL (12.0-16.0); Mean Corp Hgb Conc. 30.2 g/dL (33.0-37.0); Mean Corpuscular Hgb 26.5 pg (27.0-31.0); Mean Corpuscular Volume 87.5 fL (81.0-99.0); Mean Platelet Volume 9.9 fL (7.4-10.4); Platelet Count 246 10^3/uL (130-400); Red Blood Cell Count 3.21 10^6/uL (4.20-5.40); Red Cell Dist. Width 23.6 % (11.5-14.5); White Blood Cell Count 9.9 10^3/uL (4.8-10.8)
[2024-10-16 07:15] LABS: ALT (SGPT) < 10 U/L (0-35); AST (SGOT) 13 U/L (14-36); Albumin 3.2 g/dl (3.5-5.0); Alkaline Phosphatase 87 U/L (38-126); Blood Urea Nitrogen 20 mg/dl (7-17); Calcium 8.8 mg/dl (8.4-10.2); Carbon Dioxide 33 mmol/L (22-30); Chloride 103 mmol/L (98-107); Estimated Creatinine Clearance 73 ml/min; Glucose 167 mg/dl (70-99); Magnesium 1.8 mg/dl (1.6-2.3); Sodium 141 mmol/L (135-145); Total Bilirubin 0.8 mg/dl (0.2-1.3); Total Protein 5.6 g/dl (6.3-8.2); eGFR > 60.00
[2024-10-16] MEDS: ADVAIR HFA 115/21 MCG INHALER 2 PUFF INH ×2 (07:21→19:19)
--- NOTE | 2024-10-16 07:58 | W.PN.CD ---
Today's Communication / Plan
-
- LVEF 50%, dilated RV with reduced RV function, and moderate MR/TR (PASP 63 mmHg) on echocardiogram yesterday.
- Will decrease IV Bumex to 2 mg twice daily (from current very high-dose 4 mg twice daily); this requires intensive monitoring.
- When patient is closer to discharge, recommend changing to Bumex 2 mg PO BID at home.
- Will add Farxiga.
Impression / Plan
-
I/P: 74F presented with shortness of breath and associated lower extremity swelling. Cardiology was consulted for acute on chronic HFpEF.
Primary chainstitch elastic attacher: Dr. Jonas
HFpEF, acute on chronic
- LVEF 50%, dilated RV with reduced RV function, and moderate MR/TR (PASP 63 mmHg) on echocardiogram yesterday.
- Volume status improving with IV diuresis.
- Was on furosemide 120 in a.m., 80 mg in p.m. at home
- Will decrease IV Bumex to 2 mg twice daily (from current very high-dose 4 mg twice daily); this requires intensive monitoring.
- When patient is closer to discharge, recommend changing to Bumex 2 mg PO BID at home.
- Will add Farxiga.
- Heart failure education
- Continue to trend daily weight, I/O, and BMP with diuresis.
Atrial fibrillation, permanent
- No plans to restore sinus rhythm
- S/p ablation with Dr. Farley in 2021 & PVI 2016
- Anticoagulation: S/p Watchman (08/2023) with ASA
CAD:
- Denies any current anginal symptoms.
- Continue current medical therapy (ASA, statin)
- PCI 1996
Non-Hodgkin's lymphoma
- Completed 2 cycles of mini R�CHOP chemotherapy
- Plan is for PET prior to cycle 4
- Managed by Dr. Mejía, she is due for chemotherapy tomorrow
PAD with nonhealing wound
Lymphedema, bilateral lower extremity, chronic
Carotid stenosis, 50-69% left & >70% right, follows with Dr. Joy
Prior TIA
Meningioma resection and craniotomy ([facility], 2022)
NIDDM, per primary
Obesity, BMI 43, she would benefit from weight loss
Physical Exam
Vital Signs/Labs
Vital Signs
Temp Pulse Resp BP Pulse Ox
97.7 F 98 16 111/51 93
10/16/24 03:49 10/16/24 07:26 10/16/24 07:26 10/16/24 03:49 10/16/24 07:26
10/15/24 10/16/24 10/17/24
06:59 06:59 06:59
Actual Weight 115.439 kg
10/16/24 05:49
10/16/24 05:49
Magnesium 1.8 mg/dl (1.6-2.3) 10/16/24 05:49
10/15/24
10:11
Dcr-P-Sruiibmdvco Pept 3570
LAB Results
10/15/24
10:11
Troponin I < 0.012
Physical Exam
Constitutional: No acute distress and Comfortable
EENT: Anicteric
Cardiovascular: Rhythm/rate is irregular, Pedal edema present (2-3+), Systolic murmur present (3/6) and S1S2 is normal
Respiratory: Respiratory effort normal and Rhonchi Present (Mild bibasilar)
GI: Soft
Neuro/Psych: AO x 3
Other: Skin (warm, bilateral lower extremity erythema)
Data Reviewed
-
Date of Service: October 16, 2024
EKG: Tracing Personally Visualized and interpreted (A-fib to 120s)
Echo: Report Reviewed by me (EF 50%, dilated RV with decreased RV function, moderate MR/TR, PASP 63 mmHg)
Medical Tests (PFT, Pathology etc): Discussed with Patient
Labs: Labs Reviewed by me
[2024-10-16 08:02] LABS: % Basophils 1.1 % (0-2); % Eosinophils 2.2 % (0-6); % Immature Granulocytes 0.7 % (0-0.5); % Lymphocytes 7.4 % (20.5-51.1); % Monocytes 7.1 % (1.7-9.3); % Neutrophils 81.5 % (42.2-75.2); Absolute Basophils 0.1 10^3/uL (0-0.2); Absolute Eosinophils 0.2 10^3/uL (0-0.7); Absolute Immature Granulocytes 0.1 10^3/uL (0-0.05); Absolute Lymphocytes 0.7 10^3/uL (1.2-3.4); Absolute Monocytes 0.7 10^3/uL (0.1-0.6); Nucleated Red Blood Cells % 0 %
[2024-10-16] MEDS: BUMEX IV (08:32)
[2024-10-16] MEDS: CALAN EXTENDED RELEASE 240 MG PO (08:33)
[2024-10-16] MEDS: PROTONIX 40 MG PO (08:33)
[2024-10-16] MEDS: ZYLOPRIM 300 MG PO (08:35)
[2024-10-16] MEDS: TOPROL XL 25 MG PO (08:35)
[2024-10-16] MEDS: ALDACTONE 25 MG PO (08:35)
[2024-10-16] MEDS: ASPIR LOW (ENTERIC COATED) 81 MG PO (08:35)
[2024-10-16] MEDS: GLUCOPHAGE XR EXTENDED RELEASE 1000 MG PO ×2 (08:35→17:39)
[2024-10-16] MEDS: SINGULAIR 10 MG PO (08:36)
[2024-10-16] MEDS: FARXIGA 10 MG PO (08:36)
[2024-10-16] MEDS: NOVOLOG FLEXPEN-LOW RESISTANCE 1 UNITS SC ×3 (08:37→17:46)
--- NOTE | 2024-10-16 08:42 | W.PN.HOSP.TC ---
Addendum entered and electronically signed by Dante Jc DO 10/17/24 14:42:
CDI: Stage II pressure ulcer of right heel
Original Note:
Today's Communication/Plan
-
Wean oxygen as tolerated
Started on Farxiga
Bumex dose reduced to 2 mg IV twice daily
Monitor weights, I/os
Assessment / Plan
Assessment / Plan
IMPRESSION:
74-year-old female admitted for management of acute exacerbation of HFpEF.
PLAN:
#Acute exacerbation of HFpEF
Patient clinically appears volume overloaded
Currently on 2 L NC, wean as tolerated for SpO2 88 to 94%
Troponin�WNL
proBNP�3570, ranged from 5281-1653 in the last 1 year.
Chest x-ray� mild pulmonary interstitial edema.
Recent echo on 07/15/2024�ejection fraction of 50 to 55%, biatrial enlargement, right ventricular enlargement.
Repeat echo�LVEF 50%, dilated RV with reduced RV function, and moderate MR/TR (PASP 63 mmHg)
Home regimen�Lasix, Aldactone, metoprolol, not on SGLT2.
S/p Acetazolamide 250 mg, IV, 1 dose.
Cardiology consulted
Decreased the dose of Bumex from 4 mg to 2 mg IV twice daily.
Started on Farxiga
Patient's blood pressure soft in 100/49's, morning dose of Bumex held as per cardiology.
Weight increased 5 kg since admission
Monitor I/os, daily weights
Fluid/sodium restriction.
Recheck electrolytes
Monitor telemetry
#Permanent A-fib
s/p ablation and Watchman
Continue verapamil, metoprolol succinate, digoxin.
No longer anticoagulated.
Telemetry with A-fib
#Non-Hodgkin's lymphoma
Received 2 chemotherapy sessions with G�CSF, due for third treatment today
Follow-up with Dr. Mejía from oncology, for rescheduling.
# Essential hypertension
Continue metoprolol, spironolactone, verapamil
Blood pressure low, morning dose of Bumex held.
#NIDDM
Continue metformin
Patient was receiving steroids during her chemotherapy.
Reports her blood glucose at home has been fluctuating
On LSSI
HbA1c�9
Started on Farxiga
Continue Accu-Cheks
#CAD s/p PCI X2
Continue metoprolol, atorvastatin, aspirin
#Anemia
She is at baseline ranging 8�10
With recent diagnosis of NHL, suspect anemia of chronic disease
Will monitor hemoglobin for now
#CKD stage III
Baseline creatinine at 0.9
Trend BMP
#Hypothyroidism
Continue levothyroxine
#Gout
Continue allopurinol
DVT prophylaxis�Lovenox subcu
Full code
Anticipated Discharge: 24 - 48 hours
Subjective/Interval History
-
Date of Service: October 16, 2024
Patient on 2 L nasal cannula.
Reports her shortness of breath has improved, her leg swelling is better.
Weight increased 5 kg since admission.
Good urine output.
Objective Data
-
Labs:
Laboratory Results
10/16/24
05:49
WBC 9.9
Hgb 8.5 L
Hct 28.1 L
Plt Count 246
Sodium 141
Potassium 4.0
Chloride 103
Carbon Dioxide 33 H
BUN 20 H
Creatinine 0.8
Glucose 167 H
Calcium 8.8
Total Bilirubin 0.8
AST 13 L
ALT < 10
Alkaline Phosphatase 87
Vital Signs:
Vital Signs
Temp Pulse Resp BP Pulse Ox
97.7 F 98 16 111/51 93
10/16/24 03:49 10/16/24 07:26 10/16/24 07:26 10/16/24 03:49 10/16/24 07:26
I&O
10/15/24 10/16/24 10/17/24
06:59 06:59 06:59
Output Total 1575 / 1575
Balance -1575 / -1575
Review of Systems
-
All other systems: Reviewed and negative (Except as mentioned above)
Physical Exam
-
General: No Apparent Distress
HEENT: Oxygen (2 L NC)
Respiratory: Crackles (Bilateral basal)
Cardiac: S1/S2, Irregular Rhythm, Murmur and Other (2+ pedal edema)
GI: Soft, Nontender and Normal Bowel Sounds
Skin: Warm and Dry
Neuro: Awake, Alert, Oriented and AO x 3
Psych: Calm
[2024-10-16] MEDS: TYLENOL 650 MG PO (10:12)
[2024-10-16] MEDS: ROXICODONE 5 MG PO ×2 (11:47→16:19)
--- NOTE | 2024-10-16 12:25 | WOUNDNOTE ---
[facility] RN note: Patient seen around 11:15am. Patient admitted with exacerbation of CHF. Patient lives with family at home. She is followed by Dr. Emmanule Galarza for her heel ulcer. She last saw sub prior 2 weeks ago.
See H&P for complete history.
PMH: From H+P 'RF (2 L), COPD, HFpEF/RV failure, permanent AF s/p watchman, CAD s/p PCI, valvular heart disease, carotid stenosis, NIDDM, HTN, HLD, NHL on chemotherapy, PAD, H/O TIA, H/O meningioma resection'. She has a history of chronic L heel
ulcer, R heel ulcer, lymphedema, obesity.
Wound Location and type/assessment: Patient admitted with: Full thickness L heel ulcer to muscle, pink, R heel yellow scab/callus with stage 2 broken blister, L torres dermal ulcer with dry yellow fibrin, R dorsal 3-4th toe ulcers from her wheelchair
wheel rolling over her toes at home by accident. Affected toes mild red. Patient reports redness less. LE edema (L normally >R as per patient). +Pedal pulses. Patient willing to wear knee high Tubigrip (size G on calf section) and she stated she
will not wear knee high Erik wraps. Patient in recliner chair. She declined standing for sacral skin assessment. PT Justine reports her bottom is intact. TANISHA Johnston to assess patient's sacrum today and will tiger text this telegraphic typewriter repairer if there is skin
breakdown.
Appetite: good.
Pressure redistribution devices in place: Legend Silicon[employer]. Nursing to apply a static air overlay (spoke with TANISHA Johnston and PCT Venkat). She has a static air overlay, bariatric air chair cushion and TruVue lite boots at home. Air chair cushion
under her LLE in recliner chair.
Plan: Silicone border foam applied to L torres. Heel dressings changed. t/c SPD and ordered TruVue lite boots and a bariatric air chair cushion. Instructed patient pressure injury prevention measures.
Updated and confirmed orders with Dr. Jc and discussed with TANISHA Johnston.
Updated care plan and will follow as needed. Patient to follow up with Dr. Galarza.
[2024-10-16 12:35] LABS: Glucose - Point of Care 186 mg/dl (70-99)
[2024-10-16] MEDS: LANOXIN 125 MCG PO (13:57)
--- NOTE | 2024-10-16 15:50 | PN.CDI ---
CDI
- -
CDI:
Physician Documentation Request
Admit Date: 10/15/24 15:58
Dear Doctor Cynthia,
10/16 WO notes states 'R heel yellow scab/callus with stage 2 broken blister'
Physician documentation of the type and location of wounds is required for compliant documentation. Based on the above clinical findings and your assessment, please provide the following in your progress note:
1. Location of the ulcer/wound, including laterality.
2. Type (etiology) of ulcer/wound:
- Diabetic ulcer
- Arterial (ischemic) ulcer
- Traumatic wound
- Pressure (decubitus) ulcer
- Other
Use of terms such as suspected, likely, concern for, or probable (associated with a specific diagnosis that is being evaluated, monitored, or treated as if it exists) are acceptable and can be coded in the inpatient setting, when documented at the
time of discharge.
Thank you,
Omayra Tatum RN, BSN
CDI Specialist
tiger text
Please use your independent medical judgment in providing your response.
*Source: National Pressure Ulcer Advisory Panel (NPUAP)
--- NOTE | 2024-10-16 16:37 | CM ---
Alert awake oriented patient who lives with her son Haylee in a 2 story home with 1 steps to enter and stairglide to bed/bathroom. She is assisted in activates of daily living.She does not drive .She uses a walker wheel chair home
oxygen.PT OT recommended SNF . Pt refused.Pt requested [facility] . Pt also has a pulmonary care nurse 4 days weekly from 8-2 pm.
Had [facility] in past .[facility]
Pharmacy [facility]
PCP Dr Heard
PLAN Home with [facility] and pulmonary care nurse
[2024-10-16 17:01] LABS: Glucose - Point of Care 174 mg/dl (70-99)
[2024-10-16] MEDS: BUMEX 2 MG IV (17:41)
[2024-10-16] MEDS: LOVENOX 40 MG SC (18:03)
[2024-10-16] MEDS: DESENEX/MITRAZOL/ZEASORB 1 APPLIC TOPICAL (20:12)
[2024-10-16 21:12] LABS: Glucose - Point of Care 257 mg/dl (70-99)
[2024-10-16] MEDS: LIPITOR 40 MG PO (21:21)
[2024-10-16] MEDS: TRICOR 48 MG PO (21:21)
[2024-10-16] MEDS: ZOLOFT 50 MG PO (21:21)
--- NOTE | 2024-10-16 21:34 | PTCARENOTE ---
pt very upset that purewick was removed earlier in the day. States she uses it at home. RN did review the cons of having a purewick which made her angry because she says she has heard that about 27 times. Very upset with constant turning and wanted
to speak with house doctor. Dory ACE aware of situation and was ok with pt having purewick overnight as it was making pt very upset.
[2024-10-17 03:45] VITALS: BP 112/56
[2024-10-17] MEDS: SYNTHROID 125 MCG PO (05:13)
[2024-10-17 05:37] VITALS: BMI 45.2
[2024-10-17 06:59] LABS: % Basophils 1.4 % (0-2); % Eosinophils 2.7 % (0-6); % Immature Granulocytes 0.9 % (0-0.5); % Lymphocytes 8.4 % (20.5-51.1); % Monocytes 7.2 % (1.7-9.3); % Neutrophils 79.4 % (42.2-75.2); Absolute Basophils 0.1 10^3/uL (0-0.2); Absolute Eosinophils 0.2 10^3/uL (0-0.7); Absolute Immature Granulocytes 0.1 10^3/uL (0-0.05); Absolute Lymphocytes 0.6 10^3/uL (1.2-3.4); Absolute Monocytes 0.5 10^3/uL (0.1-0.6); Absolute Neutrophils 5.9 10^3/uL (1.4-6.5); Hematocrit 28.5 % (37.0-47.0); Hemoglobin 8.6 g/dL (12.0-16.0); Mean Corp Hgb Conc. 30.2 g/dL (33.0-37.0); Mean Corpuscular Hgb 26.5 pg (27.0-31.0); Mean Corpuscular Volume 87.7 fL (81.0-99.0); Mean Platelet Volume 9.4 fL (7.4-10.4); Nucleated Red Blood Cells % 0.3 %; Platelet Count 253 10^3/uL (130-400); Red Blood Cell Count 3.25 10^6/uL (4.20-5.40); Red Cell Dist. Width 23.9 % (11.5-14.5); White Blood Cell Count 7.4 10^3/uL (4.8-10.8)
--- NOTE | 2024-10-17 07:01 | W.PN.HOSP.TC ---
Documented by User: Malu Ramirez MD, Resident 10/17/24 12:49
Today's Communication/Plan
-
Continue Bumex
Monitor I/os, weights
Assessment / Plan
Assessment / Plan
IMPRESSION:
74-year-old female admitted for management of acute exacerbation of HFpEF.
PLAN:
#Acute exacerbation of HFpEF
Patient clinically appears volume overloaded
Currently on 2 L NC, wean as tolerated for SpO2 88 to 94%
Troponin�WNL
proBNP�3570, ranged from 8392-8259 in the last 1 year.
Chest x-ray� mild pulmonary interstitial edema.
Recent echo on 07/15/2024�ejection fraction of 50 to 55%, biatrial enlargement, right ventricular enlargement.
Repeat echo�LVEF 50%, dilated RV with reduced RV function, and moderate MR/TR (PASP 63 mmHg)
Home regimen�Lasix, Aldactone, metoprolol, not on SGLT2.
S/p Acetazolamide 250 mg, IV, 1 dose.
Cardiology consulted
Decreased the dose of Bumex from 4 mg to 2 mg IV twice daily.
Started on Farxiga
Patient's blood pressure stable
Weight stable at 115.8 kg
Wean oxygen as tolerated.
Monitor I/os, daily weights
Fluid/sodium restriction.
Recheck electrolytes
Monitor telemetry
Appreciate cardiology input
#Left foot wound
Full-thickness left heel ulcer
Right dorsal 3rd and 4th toe ulcers
Normal pedal pulses
Consulted wound care
#Permanent A-fib
s/p ablation and Watchman
Continue verapamil, metoprolol succinate, digoxin.
No longer anticoagulated.
Telemetry with A-fib
#Non-Hodgkin's lymphoma
Received 2 chemotherapy sessions with G�CSF, due for third treatment
Follow-up with Dr. Mejía from oncology, for rescheduling.
# Essential hypertension
Continue metoprolol, spironolactone, verapamil
#NIDDM
Continue metformin
Patient was receiving steroids during her chemotherapy.
Reports her blood glucose at home has been fluctuating
On LSSI
HbA1c�9
Started on Farxiga
Continue Accu-Cheks
#CAD s/p PCI X2
Continue metoprolol, atorvastatin, aspirin
#Anemia
She is at baseline ranging 8�10
With recent diagnosis of NHL, suspect anemia of chronic disease
Will monitor hemoglobin for now
#CKD stage III
Baseline creatinine at 0.9
Trend BMP
#Hypothyroidism
Continue levothyroxine
#Gout
Continue allopurinol
PT/OT�recommended SNF placement
DVT prophylaxis�Lovenox subcu
Full code
Anticipated Discharge: 24 - 48 hours
Subjective/Interval History
-
Date of Service: October 17, 2024
Patient on 2 L NC, reports her leg swelling has improved.
Weight stable at 115.8, good urine output.
Patient reports her left knee pain has improved, received 1 dose of oxycodone 5 mg evening yesterday.
Did not have a bowel movement.
Objective Data
-
Labs:
Laboratory Results
10/17/24
05:44
WBC 7.4
Hgb 8.6 L
Hct 28.5 L
Plt Count 253
Sodium Pending
Potassium Pending
Chloride Pending
Carbon Dioxide Pending
BUN Pending
Creatinine Pending
Glucose Pending
Calcium Pending
Total Bilirubin Pending
AST Pending
ALT Pending
Alkaline Phosphatase Pending
Vital Signs:
Vital Signs
Temp Pulse Resp BP Pulse Ox
98.1 F 95 18 112/56 94
10/17/24 03:45 10/17/24 03:45 10/17/24 03:45 10/17/24 03:45 10/17/24 03:45
I&O
10/16/24 10/17/24 10/18/24
06:59 06:59 06:59
Intake Total 480 / 480
Output Total 1574 / 1574 2500 / 2500
Balance -1574 / -1574 -2019 /
Review of Systems
-
All other systems: Reviewed and negative (Except as mentioned above)
Physical Exam
-
General: Well Developed, Well Nourished and No Apparent Distress
HEENT: Normocephalic, Atraumatic, Moist Mucous Membranes and Other (On 2 L nasal cannula)
Respiratory: Clear to Auscultation
Cardiac: S1/S2, Irregular Rhythm, Murmur and Other (2+ pedal)
GI: Soft, Nontender and Normal Bowel Sounds
Skin: Warm and Dry
Neuro: Awake, Alert, Oriented and AO x 3
Psych: Calm

Documented by User: Dante Jc DO 10/17/24 14:08
Today's Communication/Plan
-
Transition to oral Bumex 2mg BID
Stop SGLT2i
Monitor I/os, weights
Assessment / Plan
Assessment / Plan
IMPRESSION:
74-year-old female admitted for management of acute exacerbation of HFpEF.
PLAN:
#Acute exacerbation of HFpEF
#Acute on chronic hypoxemic respiratory failure
Patient clinically appears volume overloaded
Currently on 2 L NC, wean as tolerated for SpO2 88 to 94%
Troponin�WNL
proBNP�3570, ranged from 2473-4955 in the last 1 year.
Chest x-ray� mild pulmonary interstitial edema.
Recent echo on 07/15/2024�ejection fraction of 50 to 55%, biatrial enlargement, right ventricular enlargement.
Repeat echo�LVEF 50%, dilated RV with reduced RV function, and moderate MR/TR (PASP 63 mmHg)
Home regimen�Lasix, Aldactone, metoprolol, not on SGLT2.
S/p Acetazolamide 250 mg, IV, 1 dose.
Cardiology consulted
Cardiology recommending transitioning from IV Bumex 2 mg twice daily to oral
Started on Farxiga 10/16, however cardiology recommending to discontinue
Patient's blood pressure stable
Weight stable at 115.8 kg
Wean oxygen as tolerated.
Monitor I/os, daily weights
Fluid/sodium restriction.
Recheck electrolytes
Monitor telemetry
Appreciate cardiology input
#Left foot wound
Full-thickness left heel ulcer
Right dorsal 3rd and 4th toe ulcers
Normal pedal pulses
Consulted wound care
#Permanent A-fib
s/p ablation and Watchman
Continue verapamil, metoprolol succinate, digoxin.
No longer anticoagulated.
Telemetry with A-fib
#Non-Hodgkin's lymphoma
Received 2 chemotherapy sessions with G�CSF, due for third treatment
Follow-up with Dr. Mejía from oncology, for rescheduling.
# Essential hypertension
Continue metoprolol, spironolactone, verapamil
#NIDDM
Continue metformin
Patient was receiving steroids during her chemotherapy.
Reports her blood glucose at home has been fluctuating
On LSSI
HbA1c�9
Started on Farxiga
Continue Accu-Cheks
#CAD s/p PCI X2
Continue metoprolol, atorvastatin, aspirin
#Anemia
She is at baseline ranging 8�10
With recent diagnosis of NHL, suspect anemia of chronic disease
Will monitor hemoglobin for now
#CKD stage III
Baseline creatinine at 0.9
Trend BMP
#Hypothyroidism
Continue levothyroxine
#Gout
Continue allopurinol
PT/OT�recommended SNF placement
DVT prophylaxis�Lovenox subcu
Full code
[2024-10-17 07:16] LABS: ALT (SGPT) < 10 U/L (0-35); AST (SGOT) 11 U/L (14-36); Albumin 2.9 g/dl (3.5-5.0); Alkaline Phosphatase 79 U/L (38-126); Blood Urea Nitrogen 19 mg/dl (7-17); Carbon Dioxide 31 mmol/L (22-30); Chloride 104 mmol/L (98-107); Estimated Creatinine Clearance 73 ml/min; Glucose 140 mg/dl (70-99); Sodium 141 mmol/L (135-145); Total Bilirubin 0.7 mg/dl (0.2-1.3); Total Protein 5.7 g/dl (6.3-8.2); eGFR > 60.00
[2024-10-17] MEDS: ADVAIR HFA 115/21 MCG INHALER 2 PUFF INH ×2 (07:19→19:34)
[2024-10-17 07:29] VITALS: BP 109/60
[2024-10-17 07:38] LABS: Glucose - Point of Care 135 mg/dl (70-99)
[2024-10-17] MEDS: NOVOLOG FLEXPEN-LOW RESISTANCE SC (07:49)
[2024-10-17] MEDS: GLUCOPHAGE XR EXTENDED RELEASE 1000 MG PO ×2 (07:52→17:43)
[2024-10-17] MEDS: ASPIR LOW (ENTERIC COATED) 81 MG PO (07:53)
[2024-10-17] MEDS: CALAN EXTENDED RELEASE 240 MG PO (07:53)
[2024-10-17] MEDS: ALDACTONE 25 MG PO (07:53)
[2024-10-17] MEDS: FARXIGA 10 MG PO (07:53)
[2024-10-17] MEDS: TOPROL XL 25 MG PO (07:53)
[2024-10-17] MEDS: PROTONIX 40 MG PO (07:53)
[2024-10-17] MEDS: ZYLOPRIM 300 MG PO (07:54)
[2024-10-17] MEDS: BUMEX 2 MG IV (07:54)
[2024-10-17] MEDS: SINGULAIR 10 MG PO (07:54)
[2024-10-17] MEDS: DESENEX/MITRAZOL/ZEASORB 1 APPLIC TOPICAL ×2 (07:56→22:03)
[2024-10-17] MEDS: ESTRACE 0.01% VAGINAL CREAM 1 APPLIC VAG (08:07)
[2024-10-17] MEDS: ROXICODONE 5 MG PO ×3 (08:15→22:00)
--- NOTE | 2024-10-17 08:19 | W.PN.CD ---
Today's Communication / Plan
-
transition to po bumex and assess response in pm
stop farxiga
Impression / Plan
-
I/P: 74F presented with shortness of breath and associated lower extremity swelling. Cardiology was consulted for acute on chronic HFpEF.
Primary repairer art objects: Dr. Jonas
HFpEF, acute on chronic
- LVEF 50%, dilated RV with reduced RV function, and moderate MR/TR (PASP 63 mmHg) on echocardiogram yesterday.
- Volume status improving with IV diuresis.
-she is anxious to go home, and she has significantly improved
-will assess her response to po bumex this afternoon and if responds can go home on Bumex 2 mg PO BID at home.
-Follow up is already arranged.
- added Farxiga---but I will stop as she has a purewick at home too, h/o chronic UTI.
-given EF now 50% will ask CM to mixon Entresto 24/26 mg po bid to consider when she is euvolemic as an op
- Heart failure education
- Continue to trend daily weight, I/O, and BMP with diuresis.
Atrial fibrillation, permanent
- No plans to restore sinus rhythm
- S/p ablation with Dr. Farley in 2021 & PVI 2016
- Anticoagulation: S/p Watchman (08/2023) with ASA
CAD:
- Denies any current anginal symptoms.
- Continue current medical therapy (ASA, statin)
- PCI 1996
Non-Hodgkin's lymphoma
- Completed 2 cycles of mini R�CHOP chemotherapy
- Plan is for PET prior to cycle 4
- Managed by Dr. Mejía, she is due for chemotherapy tomorrow
PAD with nonhealing wound
Lymphedema, bilateral lower extremity, chronic
Carotid stenosis, 50-69% left & >70% right, follows with Dr. Joy
Prior TIA
Meningioma resection and craniotomy ([facility], 2022)
NIDDM, per primary
Obesity, BMI 43, she would benefit from weight loss
Physical Exam
Vital Signs/Labs
Vital Signs
Temp Pulse Resp BP Pulse Ox
98.1 F 94 18 109/60 92
10/17/24 03:45 10/17/24 07:54 10/17/24 07:21 10/17/24 07:54 10/17/24 07:21
10/16/24 10/17/24 10/18/24
06:59 06:59 06:59
Actual Weight 254 lb 8 oz 255 lb 6 oz
10/17/24 05:44
10/17/24 05:44
Magnesium 1.8 mg/dl (1.6-2.3) 10/16/24 05:49
10/15/24
10:11
Tbz-C-Gxvafxqshly Pept 3570
LAB Results
10/15/24
10:11
Troponin I < 0.012
Physical Exam
Constitutional: No acute distress
Cardiovascular: Systolic murmur absent, Diastolic murmur absent, Rhythm/rate is irregular and Pedal edema present (up through thighs)
Respiratory: Respiratory effort normal, Lungs clear to auscul., Wheeze Absent, Crackles Absent and Rhonchi Absent
Neuro/Psych: AO x 3
Data Reviewed
-
Date of Service: October 17, 2024
Medical Decision Making: Review of Case with other Provider (discussed with resident physician)
EKG: Other (fib on tele)
[2024-10-17] MEDS: BACTROBAN 2% OINTMENT 1 APPLIC TOPICAL (08:33)
[2024-10-17 11:43] VITALS: BP 110/50
[2024-10-17 11:51] LABS: Glucose - Point of Care 257 mg/dl (70-99)
[2024-10-17] MEDS: LANOXIN 125 MCG PO (12:10)
[2024-10-17] MEDS: DULCOLAX 10 MG RECTAL (12:10)
--- NOTE | 2024-10-17 12:24 | CM ---
Addendum entered by Nargis Beckman RN 10/17/24 13:29:
VN .
Original Note:
Reviewed the chart notes. CM consult for cost of Entresto 24/26mg bid. Per [employer] cost analysis, cost is $30.00/month. CM continues to be available to patient/family and is monitoring medical plan for needs at discharge.
[2024-10-17] MEDS: NOVOLOG FLEXPEN-LOW RESISTANCE 3 UNITS SC (14:02)
[2024-10-17 15:59] VITALS: BP 106/51
[2024-10-17] MEDS: LAC HYDRIN, AM LACTIN LOTION TOPICAL (16:16)
[2024-10-17] MEDS: BUMEX 2 MG PO (16:19)
[2024-10-17 16:45] LABS: Glucose - Point of Care 162 mg/dl (70-99)
[2024-10-17] MEDS: NOVOLOG FLEXPEN-LOW RESISTANCE 1 UNITS SC (17:44)
[2024-10-17] MEDS: LOVENOX 40 MG SC (17:44)
--- NOTE | 2024-10-17 18:31 | PTCARENOTE ---
Assumed care of pt from previous nurse. Pt provided prn pain medication for headache with positive results. Pt call duque is within reach, pt rings nirmala. pt is on tele running afib. will cont to monitor.
[2024-10-17 19:45] VITALS: BP 110/49
[2024-10-17 21:44] LABS: Glucose - Point of Care 234 mg/dl (70-99)
[2024-10-17] MEDS: LAC HYDRIN, AM LACTIN LOTION 1 APPLIC TOPICAL (22:01)
[2024-10-17] MEDS: ZOLOFT 50 MG PO (22:02)
[2024-10-17] MEDS: TRICOR 48 MG PO (22:02)
[2024-10-17] MEDS: LIPITOR 40 MG PO (22:02)
[2024-10-17 23:55] VITALS: BP 117/50
[2024-10-18 03:55] VITALS: BP 114/49
[2024-10-18] MEDS: SYNTHROID 125 MCG PO (05:22)
[2024-10-18 06:00] VITALS: BMI 44.2
--- NOTE | 2024-10-18 07:17 | W.PN.HOSP.TC ---
Today's Communication/Plan
-
Continue oral Bumex
BMP in 1 week at discharge
Assessment / Plan
Assessment / Plan
IMPRESSION:
74-year-old female admitted for management of acute exacerbation of HFpEF.
PLAN:
#Acute exacerbation of HFpEF
#Acute on chronic hypoxemic respiratory failure
Patient clinically appears volume overloaded
Currently on 2 L NC, patient on 2 L NC at home as needed.
Troponin�WNL
proBNP�3570, ranged from 8361-1572 in the last 1 year.
Chest x-ray� mild pulmonary interstitial edema.
Recent echo on 07/15/2024�ejection fraction of 50 to 55%, biatrial enlargement, right ventricular enlargement.
Repeat echo�LVEF 50%, dilated RV with reduced RV function, and moderate MR/TR (PASP 63 mmHg)
Home regimen�Lasix, Aldactone, metoprolol, not on SGLT2.
S/p Acetazolamide 250 mg, IV, 1 dose.
Cardiology consulted
Transition to oral Bumex 2 mg, twice daily. Will continue the same dose at discharge
Patient's blood pressure stable
Weight trended down to 113
Wean oxygen as tolerated.
Monitor I/os, daily weights
Fluid/sodium restriction.
Recheck electrolytes in 1 week
Monitor telemetry
Appreciate cardiology input
#Left foot wound
Full-thickness left heel ulcer on the posterior aspect of the ankle-approximately 4X 3 cm, with granulation tissue, no surrounding erythema, no purulent discharge.
Right dorsal 3rd and 4th toe ulcers approximately 1 cm X 1 cm, covered with scabs, 2 ulcers on the right third toe, 1 on the right fourth toe.
Normal pedal pulses
Consulted wound care
#Permanent A-fib
s/p ablation and Watchman
Continue verapamil, metoprolol succinate, digoxin.
No longer anticoagulated.
Telemetry with A-fib
#Non-Hodgkin's lymphoma
Received 2 chemotherapy sessions with G�CSF, due for third treatment
Follow-up with Dr. Mejía from oncology, for rescheduling.
# Essential hypertension
Continue metoprolol, spironolactone, verapamil
#NIDDM
Continue metformin
Patient was receiving steroids during her chemotherapy.
Reports her blood glucose at home has been fluctuating
On LSSI
HbA1c�9
Farxiga discontinued
Continue Accu-Cheks
#CAD s/p PCI X2
Continue metoprolol, atorvastatin, aspirin
#Anemia
She is at baseline ranging 8�10
With recent diagnosis of NHL, suspect anemia of chronic disease
Will monitor hemoglobin for now
#CKD stage III
Baseline creatinine at 0.9
Trend BMP
#Hypothyroidism
Continue levothyroxine
#Gout
Continue allopurinol
PT/OT�recommended SNF placement, but patient has health aide at home and refusing to go to SNF.
Will discharge her to home at her request.
DVT prophylaxis�Lovenox subcu
Full code
Anticipated Discharge: Today
Subjective/Interval History
-
Date of Service: October 18, 2024
Patient does not have any acute complaints.
Having good urine output, is not short of breath.
Objective Data
-
Labs:
Laboratory Results
10/18/24
06:00
WBC Pending
Hgb Pending
Hct Pending
Plt Count Pending
Sodium Pending
Potassium Pending
Chloride Pending
Carbon Dioxide Pending
BUN Pending
Creatinine Pending
Glucose Pending
Calcium Pending
Vital Signs:
Vital Signs
Temp Pulse Resp BP Pulse Ox
97.6 F 95 18 114/49 95
10/18/24 03:55 10/18/24 03:55 10/18/24 03:55 10/18/24 03:55 10/18/24 03:55
I&O
10/17/24 10/18/24 10/19/24
06:59 06:59 06:59
Intake Total 480 / 480 680 / 680
Output Total 2500 / 2500 1300 / 3025 1725 / 1725
Balance -2019 / -2019 -620 / -2345 -172 / -172
Review of Systems
-
All other systems: Reviewed and negative
Physical Exam
-
General: Well Developed, Well Nourished and No Apparent Distress
HEENT: Normocephalic and Atraumatic
Respiratory: Clear to Auscultation
Cardiac: S1/S2, Irregular Rhythm and Other (2+ pedal edema)
GI: Soft, Nontender and Normal Bowel Sounds
Skin: Warm and Dry
Neuro: Awake, Alert, Oriented and AO x 3
Psych: Calm
[2024-10-18 07:20] LABS: Glucose - Point of Care 148 mg/dl (70-99)
[2024-10-18 07:55] VITALS: BP 123/60
[2024-10-18] MEDS: NOVOLOG FLEXPEN-LOW RESISTANCE SC (08:03)
[2024-10-18] MEDS: BUMEX 2 MG PO (08:03)
[2024-10-18] MEDS: ASPIR LOW (ENTERIC COATED) 81 MG PO (08:03)
[2024-10-18] MEDS: GLUCOPHAGE XR EXTENDED RELEASE 1000 MG PO (08:04)
[2024-10-18] MEDS: ALDACTONE 25 MG PO (08:04)
[2024-10-18] MEDS: CALAN EXTENDED RELEASE 240 MG PO (08:04)
[2024-10-18] MEDS: TOPROL XL 25 MG PO (08:04)
[2024-10-18] MEDS: PROTONIX 40 MG PO (08:04)
[2024-10-18] MEDS: ZYLOPRIM 300 MG PO (08:04)
[2024-10-18] MEDS: SINGULAIR 10 MG PO (08:04)
[2024-10-18] MEDS: FLUSH (NSS) 1 FLUSH IV (08:05)
[2024-10-18] MEDS: DULCOLAX 10 MG RECTAL (08:12)
[2024-10-18] MEDS: ADVAIR HFA 115/21 MCG INHALER 2 PUFF INH (08:19)
[2024-10-18] MEDS: BACTROBAN 2% OINTMENT 1 APPLIC TOPICAL (08:28)
[2024-10-18] MEDS: LAC HYDRIN, AM LACTIN LOTION 1 APPLIC TOPICAL (08:29)
[2024-10-18] MEDS: DESENEX/MITRAZOL/ZEASORB 1 APPLIC TOPICAL (08:29)
[2024-10-18 08:35] LABS: Hematocrit 29.5 % (37.0-47.0); Mean Corp Hgb Conc. 30.5 g/dL (33.0-37.0); Mean Corpuscular Hgb 26.7 pg (27.0-31.0); Mean Corpuscular Volume 87.5 fL (81.0-99.0); Mean Platelet Volume 9.9 fL (7.4-10.4); Platelet Count 246 10^3/uL (130-400); Red Blood Cell Count 3.37 10^6/uL (4.20-5.40); Red Cell Dist. Width 23.6 % (11.5-14.5)
[2024-10-18 08:48] LABS: Blood Urea Nitrogen 17 mg/dl (7-17); Calcium 9.1 mg/dl (8.4-10.2); Carbon Dioxide 29 mmol/L (22-30); Chloride 103 mmol/L (98-107); Estimated Creatinine Clearance 72 ml/min; Glucose 159 mg/dl (70-99); Magnesium 1.9 mg/dl (1.6-2.3); Potassium 3.8 mmol/L (3.5-5.1); Sodium 140 mmol/L (135-145); eGFR > 60.00
--- NOTE | 2024-10-18 09:35 | W.PN.CD ---
Today's Communication / Plan
-
continue current medications
no further recommendations
I will sign off and see in op setting
Impression / Plan
-
I/P: 74F presented with shortness of breath and associated lower extremity swelling. Cardiology was consulted for acute on chronic HFpEF.
Primary bladder changer: Dr. Jonas
HFpEF, acute on chronic
- LVEF 50%, dilated RV with reduced RV function, and moderate MR/TR (PASP 63 mmHg) on echocardiogram yesterday.
- Volume status improving with IV diuresis.
-she is anxious to go home, and she has significantly improved
-good response to po bumex can go home on Bumex 2 mg PO BID at home.
-Follow up is already arranged.
-Stopped Farxiga,chronic pure wick, fungal infection, h/o chronic UTI.
-given EF now 50% will ask CM to mixon Entresto 24/26 mg po bid to consider when she is euvolemic as an op
- Heart failure education
- Continue to trend daily weight, I/O, and BMP with diuresis.
Atrial fibrillation, permanent
- No plans to restore sinus rhythm
- S/p ablation with Dr. Farley in 2021 & PVI 2016
- Anticoagulation: S/p Watchman (08/2023) with ASA
CAD:
- Denies any current anginal symptoms.
- Continue current medical therapy (ASA, statin)
- PCI 1996
Non-Hodgkin's lymphoma
- Completed 2 cycles of mini R�CHOP chemotherapy
- Plan is for PET prior to cycle 4
- Managed by Dr. Mejía, she is due for chemotherapy tomorrow
PAD with nonhealing wound
Lymphedema, bilateral lower extremity, chronic
Carotid stenosis, 50-69% left & >70% right, follows with Dr. Joy
Prior TIA
Meningioma resection and craniotomy ([facility], 2022)
NIDDM, per primary
Obesity, BMI 43, she would benefit from weight loss
Physical Exam
Vital Signs/Labs
Vital Signs
Temp Pulse Resp BP Pulse Ox
97.6 F 88 18 123/60 94
10/18/24 03:55 10/18/24 08:20 10/18/24 08:20 10/18/24 07:55 10/18/24 08:20
10/17/24 10/18/24 10/19/24
06:59 06:59 06:59
Actual Weight 255 lb 6 oz 249 lb 8 oz
10/18/24 07:39
10/18/24 07:39
Magnesium 1.9 mg/dl (1.6-2.3) 10/18/24 07:39
10/15/24
10:11
Sim-L-Dhxxtlyhhfl Pept 3570
LAB Results
10/15/24
10:11
Troponin I < 0.012
Physical Exam
Constitutional: No acute distress
Cardiovascular: Systolic murmur absent, Diastolic murmur absent, Rhythm/rate is irregular and Pedal edema present (2+ pitting edema)
Respiratory: Respiratory effort normal, Lungs clear to auscul., Wheeze Absent, Crackles Absent and Rhonchi Absent
Neuro/Psych: AO x 3
Data Reviewed
-
Date of Service: October 18, 2024
EKG: Other (fib on tele acceptable control)
[2024-10-18] MEDS: FARXIGA PO (09:52)
--- NOTE | 2024-10-18 10:49 | CM ---
Addendum entered by Nell Blanco 10/18/24 15:59:
IMM reviewed. In chart
discharged today, son transported
Original Note:
Patient seen at bedside.
Referral in [facility] for [facility] & accepted
PLAN: home when medically stable with [facility] and private caregivers
[facility] FAX #: [phone]
[2024-10-18 11:55] VITALS: BP 115/48
[2024-10-18 12:10] VITALS: BP 111/47; PULSE 72; O2SAT 88
[2024-10-18] MEDS: LANOXIN 125 MCG PO (12:53)
[2024-10-18 13:02] LABS: Glucose - Point of Care 226 mg/dl (70-99)
[2024-10-18] MEDS: NOVOLOG FLEXPEN-LOW RESISTANCE 2 UNITS SC (13:02)
[2024-10-18 14:13] VITALS: BP 111/47; PULSE 78
--- NOTE | 2024-10-18 17:10 | W.DCSUMMARY ---
Documented by User: Malu Ramirez MD, Resident 10/18/24 17:47
Discharge Summary
Discharge Data
Date of Admission: 10/15/24
Date of Discharge: 10/18/24
-
Pending Results: No
Hospital Course
Discharging Physician : Dr.. Malu Coleman.
Disposition : Home with home care
Principal Discharge diagnosis : Acute exacerbation of CHF
Hospital Course : 74-year-old female with PMH of COPD, HFpEF/RV failure, permanent AF s/p watchman, CAD s/p PCI, valvular heart disease, carotid stenosis, NIDDM, HTN, HLD, NHL on chemotherapy, PAD, H/O TIA, H/O meningioma resection that presented
to the hospital with shortness of breath. Has worsened, associated with weight gain and leg swelling, increase the dose of her home Lasix to 160 mg twice daily as suggested by her digital asset coordinator without any significant improvement in her leg
swelling, shortness of breath and urine output. Upon arrival AFVSS on 4 L O2. Labs with hemoglobin 8.7, serum bicarb 34, BUN 22, albumin 3.1. BNP 3500, troponin negative x 1. ECG with atrial fibrillation and heart rate near 100, RBBB. Chest
x-ray with mild pulmonary interstitial edema. Was given 80 mg IV Lasix by ED. Started her on Bumex 4 mg IV twice daily, and 1 dose of acetazolamide to 50 mg IV. Last echo 3 months ago with LVEF 50 to 55%, biatrial enlargement. Repeat echo
10/15/2024�LVEF�50%, dilated RV with reduced systolic function. Cardiology consulted. Patient diuresing well. Cardiology reduced the dose of Bumex to 2 mg IV twice daily. Was also started on Farxiga, but discontinued as the patient is using pure
wick (at home as well). Vitals, BMP, weights, I/os monitored regularly. On 2 g sodium diet, fluid restriction 60 ounce. Her home metoprolol and Aldactone continued. She is transitioned to oral Bumex 2 mg twice daily. Weights trended down, SOB
and pedal edema improved. PT/OT recommended SNF, but patient refused saying she has home health aide. Patient is clinically stable to be discharged home with healthcare. BMP in 1 week. Follow-up with cardiology outpatient.
Important imaging findings :
Chest x-ray 10/15/2024� Suspect mild pulmonary interstitial edema and/or pneumonitis. Cannot rule out component of underlying chronic interstitial lung disease.
Discharge Plan
-
Patient Disposition: Home with Home Care
Discharge Diagnosis/Procedures: Acute on chronic HFpEF
Condition: Good
Diet: Low Cholesterol, 2 Gram Sodium and Diabetic, Carb Controlled
Activity: With assistance and As tolerated
Driving Restrictions: Not until seen by your Dr
Bathing Restrictions: OK to Shower
Blood Work: BMP in 1 week
Activity Restrictions/Additional Instructions:
Wound Care Instructions
L heel ulcer-clean with saline or Vashe wound cleanser, alginate, ABD pad, secure with Kerlix, change daily and prn drainage (pad anterior ankle with non woven gauze under Kerlix).
R heel-clean with saline, apply no sting barrier wipe (allow to dry), foam adhesive dressing, change q 2 days and prn loosened dressing.
R 3rd,4th dorsal toe ulcers-clean with saline or Vashe wound cleanser, Bactroban ointment, cover with gauze, change daily.
L torres abrasion-clean with saline, silicone border foam, change q 3 days and prn loosened dressing
Bilateral knee high Tubigrip (size F from toes to ankle, size G from ankle to just below the knee), remove at bedtime, re-apply every morning.
Elevate heels off bed; soft heel relief boots as tolerated (i.e. TruVue lite boots).
Pressure redistributing chair cushion (i.e. Bariatric air chair cushion).
Follow up with your project designer Dr. Galarza.
Instructions: *PCP/Other Engineering Illustrator Heart Failure Instructions
Referrals:
Betsy Heard NP [Family Provider] - in less than 1 week
Prescriptions:
New
bumetanide 2 mg Tablet
2 mg PO BID AT 0800,1600 30 Days Qty: 60 0RF
Continued
albuterol sulfate 1 PUFF HFA aerosol inhaler
2 puff inhalation R Q4HPRN PRN (Reason: sob/wheezing)
atorvastatin 40 MG tablet
40 mg PO HS
fenofibrate nanocrystallized 48 MG tablet
48 mg PO HS
pantoprazole 40 MG tablet,delayed release (DR/EC)
40 mg PO DAILY
sertraline 50 MG tablet
50 mg PO HS
montelukast 10 MG tablet
10 mg PO DAILY
fluticasone propion-salmeterol [Advair Diskus] 250-50 mcg/dose Blister With Device
1 inh INHALATION R BIDPRN PRN (Reason: sob/wheezing)
spironolactone 25 mg Tablet
25 mg PO DAILY
levothyroxine [Synthroid] 125 mcg Tablet
125 mcg PO DAILY
digoxin 125 mcg (0.125 mg) Tablet
125 mcg PO DAILY
verapamil 240 mg capsule,ext rel. pellets 24 hr
240 mg PO DAILY
metoprolol succinate 25 mg Tablet Extended Release 24 Hr
25 mg PO DAILY Qty: 30 0RF
metformin 500 mg Tablet Extended Release 24 Hr
1,000 mg PO BID
aspirin 81 mg tablet,delayed release (DR/EC)
81 mg PO DAILY
allopurinol 300 mg Tablet
300 mg PO DAILY
acetaminophen 650 mg Tablet Extended Release
1,300 mg PO Q8HPRN PRN (Reason: mild pain)
insulin glargine 100 unit/mL Solution
3 unit SC HS
zolpidem 12.5 mg Tablet,Ext Release Multiphase
12.5 mg PO HSPRN PRN (Reason: sleep)
therapeutic multivitamin Tablet
1 tab PO DAILY
prochlorperazine maleate [Compazine] 10 mg Tablet
10 mg PO BIDPRN PRN (Reason: nausea)
estradiol [Estrace] 0.01 % (0.1 mg/gram) Cream
1 appful VAGINAL MOTH
potassium chloride 20 mEq Tablet Extended Release
20 meq PO BID
Discontinued
furosemide 80 mg Tablet
80 mg PO NOON
Rx Instructions:
AT NOON
furosemide 80 mg Tablet
120 mg PO DAILY
Discharge Orders:
Discharge Patient (As Directed); Ordered 10/18/24
Ordered By: Malu Ramirez
Discharge Date and Time
Discharge Date/Time: 10/18/24 15:38
Print Language: ZIMBABWEAN

Documented by User: Dante Jc DO 10/18/24 18:22
Discharge Summary
Discharge Data
Date of Admission: 10/15/24
Date of Discharge: 10/18/24
Total time spent discharging patient (in min): 34
Discharge Plan
-
Patient Disposition: Home with Home Care
Discharge Diagnosis/Procedures: Acute on chronic HFpEF
Condition: Good
Diet: Low Cholesterol, 2 Gram Sodium and Diabetic, Carb Controlled
Activity: With assistance and As tolerated
Driving Restrictions: Not until seen by your Dr
Bathing Restrictions: OK to Shower
Blood Work: BMP in 1 week
Activity Restrictions/Additional Instructions:
Wound Care Instructions
L heel ulcer-clean with saline or Vashe wound cleanser, alginate, ABD pad, secure with Kerlix, change daily and prn drainage (pad anterior ankle with non woven gauze under Kerlix).
R heel-clean with saline, apply no sting barrier wipe (allow to dry), foam adhesive dressing, change q 2 days and prn loosened dressing.
R 3rd,4th dorsal toe ulcers-clean with saline or Vashe wound cleanser, Bactroban ointment, cover with gauze, change daily.
L torres abrasion-clean with saline, silicone border foam, change q 3 days and prn loosened dressing
Bilateral knee high Tubigrip (size F from toes to ankle, size G from ankle to just below the knee), remove at bedtime, re-apply every morning.
Elevate heels off bed; soft heel relief boots as tolerated (i.e. TruVue lite boots).
Pressure redistributing chair cushion (i.e. Bariatric air chair cushion).
Follow up with your project designer Dr. Galarza.
Instructions: *PCP/Other Engineering Illustrator Heart Failure Instructions
Referrals:
Betsy Heard NP [Family Provider] - in less than 1 week
Prescriptions:
New
bumetanide 2 mg Tablet
2 mg PO BID AT 0800,1600 30 Days Qty: 60 0RF
Continued
albuterol sulfate 1 PUFF HFA aerosol inhaler
2 puff inhalation R Q4HPRN PRN (Reason: sob/wheezing)
atorvastatin 40 MG tablet
40 mg PO HS
fenofibrate nanocrystallized 48 MG tablet
48 mg PO HS
pantoprazole 40 MG tablet,delayed release (DR/EC)
40 mg PO DAILY
sertraline 50 MG tablet
50 mg PO HS
montelukast 10 MG tablet
10 mg PO DAILY
fluticasone propion-salmeterol [Advair Diskus] 250-50 mcg/dose Blister With Device
1 inh INHALATION R BIDPRN PRN (Reason: sob/wheezing)
spironolactone 25 mg Tablet
25 mg PO DAILY
levothyroxine [Synthroid] 125 mcg Tablet
125 mcg PO DAILY
digoxin 125 mcg (0.125 mg) Tablet
125 mcg PO DAILY
verapamil 240 mg capsule,ext rel. pellets 24 hr
240 mg PO DAILY
metoprolol succinate 25 mg Tablet Extended Release 24 Hr
25 mg PO DAILY Qty: 30 0RF
metformin 500 mg Tablet Extended Release 24 Hr
1,000 mg PO BID
aspirin 81 mg tablet,delayed release (DR/EC)
81 mg PO DAILY
allopurinol 300 mg Tablet
300 mg PO DAILY
acetaminophen 650 mg Tablet Extended Release
1,300 mg PO Q8HPRN PRN (Reason: mild pain)
insulin glargine 100 unit/mL Solution
3 unit SC HS
zolpidem 12.5 mg Tablet,Ext Release Multiphase
12.5 mg PO HSPRN PRN (Reason: sleep)
therapeutic multivitamin Tablet
1 tab PO DAILY
prochlorperazine maleate [Compazine] 10 mg Tablet
10 mg PO BIDPRN PRN (Reason: nausea)
estradiol [Estrace] 0.01 % (0.1 mg/gram) Cream
1 appful VAGINAL MOTH
potassium chloride 20 mEq Tablet Extended Release
20 meq PO BID
Discontinued
furosemide 80 mg Tablet
80 mg PO NOON
Rx Instructions:
AT NOON
furosemide 80 mg Tablet
120 mg PO DAILY
Discharge Orders:
Discharge Patient (As Directed); Ordered 10/18/24
Ordered By: Malu Ramirez
Discharge Date and Time
Discharge Date/Time: 10/18/24 15:38
Print Language: ZIMBABWEAN
--- NOTE | 2024-10-21 12:15 | W.HF.CON ---
Heart Failure
- LV Function
Left ventricular function study result: LV Ejection fraction >/= 50%
Ejection Fraction Percentage: 50
- ARNI
Patient already on ARNI: No
Heart Failure ARNI Not Indicated: LV Ejection Fraction >/= 40%
- ACEI/ARB
Patient already on ACEI/ARB: No
Heart Failure ACEI/ARB Not Indicated: LV Ejection Fraction > 40%
- Beta Domenica
Patient already on Evidence Based Beta Domenica: Yes
- Mineralocorticord Receptor Antagonist
Patient already on MRA: Yes
- SGLT-2 Inhibitor
Patient already on SGLT-2 Inhibitor: No
Heart Failure SGLT-2 Inhibitor Contraindication: Patient Refusal (s)
- Afib Anticoagulation
Patient already on Anticoagulation for Afib: No ([facility] 08/[facility]23)
Heart Failure Afib Anticoagulation Contraindication: Patient Refusal
- NYHA CHF Classification
NYHA CHF Classification Level: Class III - Symptoms w/ min exertion, interferes w/ nml daily activity
- ACC/AHA Stage
ACC/AHA Stage: Stage C: Symptomatic Heart Failure
== END 2024-10-18 15:38 | disposition home health service (06) | DRG 291 ==
LOC: 4 EAST ACU 15:58
PROVIDERS: Student in an Organized Health Care Education/Training Program; ADMITTING PHYSICIAN Internal Medicine; CONSULT PHYSICIAN Internal Medicine Cardiovascular Disease; EMERGENCY PHYSICIAN Student in an Organized Health Care Education/Training Program; FAMILY PHYSICIAN Internal Medicine
DX: I13.0 Hypertensive heart and chronic kidney disease with heart failure and stage 1 through stage 4 chronic kidney disease, or unspecified chronic kidney disease (principal); I50.33 Acute on chronic diastolic (congestive) heart failure; J96.21 Acute and chronic respiratory failure with hypoxia; I48.21 Permanent atrial fibrillation; C85.90 Non-Hodgkin lymphoma, unspecified, unspecified site; Z68.41 Body mass index [BMI] 40.0-44.9, adult; Z87.891 Personal history of nicotine dependence; I25.10 Atherosclerotic heart disease of native coronary artery without angina pectoris; L89.612 Pressure ulcer of right heel, stage 2; I27.23 Pulmonary hypertension due to lung diseases and hypoxia; E11.69 Type 2 diabetes mellitus with other specified complication; E11.621 Type 2 diabetes mellitus with foot ulcer; E11.22 Type 2 diabetes mellitus with diabetic chronic kidney disease; E11.42 Type 2 diabetes mellitus with diabetic polyneuropathy; N18.31 Chronic kidney disease, stage 3a; E03.9 Hypothyroidism, unspecified; E66.01 Morbid (severe) obesity due to excess calories; D64.9 Anemia, unspecified; M10.9 Gout, unspecified; Z79.4 Long term (current) use of insulin; Z79.82 Long term (current) use of aspirin; Z79.899 Other long term (current) drug therapy
CPT/HCPCS: 71045; 80048; 80053; 82962; 83036; 83735; 83880; 84484; 85025; 85027; 93005; 93306; 94640; 96374; 97163; 97167; 97530; 97535; 99291

== ENCOUNTER → 2024-10-23 14:27 | Outpatient (REF) | payer MEDICARE, SELFPAY ==
[2024-10-23 13:53] LABS: % Basophils 0.3 % (0-2); % Eosinophils 2.5 % (0-6); % Immature Granulocytes 0.5 % (0-0.5); % Lymphocytes 6.6 % (20.5-51.1); % Monocytes 6.6 % (1.7-9.3); % Neutrophils 83.5 % (42.2-75.2); Absolute Eosinophils 0.3 10^3/uL (0-0.7); Absolute Immature Granulocytes 0.1 10^3/uL (0-0.05); Absolute Lymphocytes 0.8 10^3/uL (1.2-3.4); Absolute Monocytes 0.8 10^3/uL (0.1-0.6); Absolute Neutrophils 9.6 10^3/uL (1.4-6.5); Hematocrit 31.6 % (37.0-47.0); Hemoglobin 9.2 g/dL (12.0-16.0); Mean Corp Hgb Conc. 29.1 g/dL (33.0-37.0); Mean Corpuscular Hgb 26.8 pg (27.0-31.0); Mean Corpuscular Volume 92.1 fL (81.0-99.0); Mean Platelet Volume 10.5 fL (7.4-10.4); Platelet Count 287 10^3/uL (130-400); Red Blood Cell Count 3.43 10^6/uL (4.20-5.40); Red Cell Dist. Width 23.5 % (11.5-14.5); White Blood Cell Count 11.5 10^3/uL (4.8-10.8)
[2024-10-23 14:28] LABS: ALT (SGPT) < 10 U/L (0-35); AST (SGOT) 14 U/L (14-36); Albumin 3.8 g/dl (3.5-5.0); Alkaline Phosphatase 75 U/L (38-126); Blood Urea Nitrogen 26 mg/dl (7-17); Calcium 9.2 mg/dl (8.4-10.2); Carbon Dioxide 26 mmol/L (22-30); Chloride 105 mmol/L (98-107); Glucose 246 mg/dl (70-99); Potassium 5.3 mmol/L (3.5-5.1); Sodium 139 mmol/L (135-145); Total Bilirubin 0.6 mg/dl (0.2-1.3); Total Protein 6.5 g/dl (6.3-8.2); Uric Acid 6.7 mg/dl (2.5-6.2); eGFR 58.39
== END ==
LOC: OIDL 14:27
PROVIDERS: ATTENDING PHYSICIAN Internal Medicine Hematology & Oncology
DX: R19.04 Left lower quadrant abdominal swelling, mass and lump (principal); I89.0 Lymphedema, not elsewhere classified; D48.19 Other specified neoplasm of uncertain behavior of connective and other soft tissue; L03.90 Cellulitis, unspecified; C83.30 Diffuse large B-cell lymphoma, unspecified site; I65.21 Occlusion and stenosis of right carotid artery; Z86.73 Personal history of transient ischemic attack (TIA), and cerebral infarction without residual deficits
CPT/HCPCS: 80053; 84550; 85025

== ENCOUNTER → 2024-11-05 12:38 | Outpatient (REF) | payer MEDICARE, SELFPAY ==
[2024-11-05 13:28] LABS: Albumin 4.1 g/dl (3.5-5.0); Blood Urea Nitrogen 38 mg/dl (7-17); Calcium 9.3 mg/dl (8.4-10.2); Carbon Dioxide 28 mmol/L (22-30); Chloride 106 mmol/L (98-107); Glucose 256 mg/dl (70-99); Phosphorus 3.1 mg/dl (2.5-4.5); Potassium 4.9 mmol/L (3.5-5.1); Sodium 142 mmol/L (135-145); eGFR > 60.00
== END ==
LOC: REG 12:38
PROVIDERS: ATTENDING PHYSICIAN Internal Medicine Cardiovascular Disease; FAMILY PHYSICIAN Internal Medicine
DX: I50.32 Chronic diastolic (congestive) heart failure (principal); E87.5 Hyperkalemia
CPT/HCPCS: 36415; 80069

== ENCOUNTER → 2024-11-18 11:27 | Outpatient (REF) | payer MEDICARE, SELFPAY ==
[2024-11-18 13:05] LABS: % Basophils 1.3 % (0-2); % Eosinophils 1.8 % (0-6); % Immature Granulocytes 3.8 % (0-0.5); % Lymphocytes 6.6 % (20.5-51.1); % Neutrophils 79.5 % (42.2-75.2); Absolute Basophils 0.1 10^3/uL (0-0.2); Absolute Eosinophils 0.2 10^3/uL (0-0.7); Absolute Immature Granulocytes 0.4 10^3/uL (0-0.05); Absolute Lymphocytes 0.7 10^3/uL (1.2-3.4); Absolute Monocytes 0.7 10^3/uL (0.1-0.6); Absolute Neutrophils 7.8 10^3/uL (1.4-6.5); Mean Corp Hgb Conc. 30.3 g/dL (33.0-37.0); Mean Corpuscular Hgb 26.7 pg (27.0-31.0); Mean Platelet Volume 9.7 fL (7.4-10.4); Nucleated Red Blood Cells % 0 %; Platelet Count 275 10^3/uL (130-400); Red Blood Cell Count 3.75 10^6/uL (4.20-5.40); Red Cell Dist. Width 21.3 % (11.5-14.5); White Blood Cell Count 9.8 10^3/uL (4.8-10.8)
[2024-11-18 15:23] LABS: ALT (SGPT) < 10 U/L (0-35); AST (SGOT) 13 U/L (14-36); Albumin 3.9 g/dl (3.5-5.0); Alkaline Phosphatase 82 U/L (38-126); Blood Urea Nitrogen 33 mg/dl (7-17); Calcium 9.2 mg/dl (8.4-10.2); Carbon Dioxide 25 mmol/L (22-30); Chloride 107 mmol/L (98-107); Glucose 237 mg/dl (70-99); Potassium 4.3 mmol/L (3.5-5.1); Sodium 142 mmol/L (135-145); Total Bilirubin 0.6 mg/dl (0.2-1.3); Total Protein 6.3 g/dl (6.3-8.2); eGFR 58.39
[2024-11-18 15:45] LABS: Anisocytosis 2+; Hypochromasia 1+
[2024-11-18 15:58] LABS: Normal RBC Morphology No
== END ==
LOC: RAD 11:27
PROVIDERS: ATTENDING PHYSICIAN Surgery Vascular Surgery; FAMILY PHYSICIAN Internal Medicine; OTHER PHYSICIAN Internal Medicine Hematology & Oncology
DX: I65.23 Occlusion and stenosis of bilateral carotid arteries (principal); R19.04 Left lower quadrant abdominal swelling, mass and lump; I89.0 Lymphedema, not elsewhere classified; D48.19 Other specified neoplasm of uncertain behavior of connective and other soft tissue; I65.21 Occlusion and stenosis of right carotid artery; L03.90 Cellulitis, unspecified; Z86.73 Personal history of transient ischemic attack (TIA), and cerebral infarction without residual deficits
CPT/HCPCS: 36415; 80053; 85025; 93880

== ENCOUNTER 2024-11-24 15:23 | Emergency (ER) | payer MEDICARE, SELFPAY ==
[2024-11-24 15:24] VITALS: BP 103/61; BMI 43.1
[2024-11-24 15:31] VITALS: BP 103/61
[2024-11-24 15:50] LABS: Hematocrit 30.1 % (37.0-47.0); Hemoglobin 9.3 g/dL (12.0-16.0); Mean Corp Hgb Conc. 30.9 g/dL (33.0-37.0); Mean Corpuscular Hgb 27.1 pg (27.0-31.0); Mean Corpuscular Volume 87.8 fL (81.0-99.0); Mean Platelet Volume 9.5 fL (7.4-10.4); Platelet Count 243 10^3/uL (130-400); Red Blood Cell Count 3.43 10^6/uL (4.20-5.40); Red Cell Dist. Width 20.9 % (11.5-14.5)
[2024-11-24 15:51] LABS: White Blood Cell Count 55.8 10^3/uL (4.8-10.8)
[2024-11-24 16:10] LABS: % Basophils 0.1 % (0-2); % Eosinophils 0.2 % (0-6); % Immature Granulocytes 9.3 % (0-0.5); % Lymphocytes 1.2 % (20.5-51.1); % Neutrophils 88.2 % (42.2-75.2); Absolute Eosinophils 0.1 10^3/uL (0-0.7); Absolute Immature Granulocytes 5.2 10^3/uL (0-0.05); Absolute Lymphocytes 0.7 10^3/uL (1.2-3.4); Absolute Monocytes 0.6 10^3/uL (0.1-0.6); Absolute Neutrophils 49.3 10^3/uL (1.4-6.5); NT-proBNP 4070 pg/ml; Nucleated Red Blood Cells % 0 %; Troponin I < 0.012 ng/ml
[2024-11-24 16:13] LABS: ALT (SGPT) < 10 U/L (0-35); AST (SGOT) 14 U/L (14-36); Albumin 3.7 g/dl (3.5-5.0); Alkaline Phosphatase 142 U/L (38-126); Blood Urea Nitrogen 32 mg/dl (7-17); Calcium 9.1 mg/dl (8.4-10.2); Carbon Dioxide 24 mmol/L (22-30); Chloride 104 mmol/L (98-107); Estimated Creatinine Clearance 71 ml/min; Glucose 316 mg/dl (70-99); Sodium 139 mmol/L (135-145); Total Bilirubin 0.4 mg/dl (0.2-1.3); eGFR > 60.00
[2024-11-24 19:00] VITALS: BP 113/53
--- NOTE | 2024-11-24 19:11 | ED.GENMED ---
History of Present Illness
<Duncan Marie PA-C - Last Filed: 11/25/24 06:04>
General
Chief Complaint: Fainting/Passed Out
Source: patient
Time Seen by Provider: 11/24/24 18:37
History of Present Illness
History of Present Illness:
74-year-old female with history of non-Hodgkin's lymphoma currently receiving chemotherapy follows with [facility] with Dr. Mejía presents via EMS from home after an episode she sustained while sitting on the chair watching TV. Per the
family she became briefly on response and had shaking activity of both arms. This lasted about 10 seconds. Family notes that she was slightly confused for couple minutes after she came to. Patient does not recall this event. She denies headache
or chest pain. She has a history of COPD and requires 3 L of oxygen occasionally but not usually during the day. She checked her oxygen at home and it was 76% and responded quickly to her normal oxygen that she uses. Currently she feels back to
normal. She did receive her last chemotherapy last week. No fevers. No other complaints
Past History
<Duncan Marie PA-C - Last Filed: 11/25/24 06:04>
Past History
ED Past Medical History: Arrthythmia (Atrial fibrillation), Asthma, CAD, Cancer (Skin, meningioma grade 2 with radiation therapy and craniotomy), CHF, COPD, HTN, Hypercholesterolemia, NIDDM, [place], Hypothyroidism, Psychiatric (Major depression), Other
(PNA, Cellulitis, Chronic Lymphedema, bilateral heel ulcerations, osteomyelitis of the left heel, morbid obesity) and Other (Sepsis, peripheral neuropathy, anemia, rosacea, COVID 19, seizure disorder, pulmonary artery hypertension, nephrolithiasis,
B complex deficiency, prior acute respiratory failure); Negative Renal failure (Stage IIIa)
ED Past Surgical History: Brain (Right frontal craniotomy for meningioma 2022), Cardiac (cardioversion, Stents X 2, Watchman device), Cholecystectomy (1982), Orthopedic (Left reverse shoulder arthroplasty December 2023), Urological (Bladder repair,
kidney stone extraction) and Other (Right femoral artery cannulation January 2024, Mohs surgery forehead 2021)
Social History
Tobacco: Former smoker
Alcohol: Daily (Vodka 1 large glass)
Drug: None
Personal:
Living: alone
Employment: Retired
Family History
Family History: Hypertension
Phy Exam
<Duncan Marie PA-C - Last Filed: 11/25/24 06:04>
Physical Exam
Physical Exam:
General: Well-appearing female no acute respiratory distress
HEENT normocephalic atraumatic pupils equal round reactive to light
Heart: Regular rate and rhythm
Lungs: Clear no wheeze neurologic exam: Alert and oriented x 3
Neurologic exam: Alert and oriented x 3 no facial asymmetry no drift on exam finger-nose intact no dysarthria or aphasia
Extremities: No cyanosis. Patient does have lymphedema to both lower extremities
Course
<Duncan Marie PA-C - Last Filed: 11/25/24 06:04>
Orders/Labs/Results
Orders:
Orders
11/24/24 15:29
EKG [Electrocardiogram (*1)] Urgent
Reason for Study: Vertigo / Dizzy
EKG- Treatment ONCE
11/24/24 15:38
Complete Blood Count/With Diff Urgent
Comprehensive Metabolic Panel Urgent
Pro-BNP [NT-proBNP] Urgent
Troponin I Urgent
11/24/24 18:56
CT Head W/o Iv Contrast Urgent
Comment:
Reason For Exam: confusion
CR Chest - 2 Views Urgent
Comment:
Reason For Exam: sob
Abnormal Lab Results
11/24/24
15:38
WBC 55.8 H* 10^3/uL
(4.8-10.8)
RBC 3.43 L 10^6/uL
(4.20-5.40)
Hgb 9.3 L g/dL
(12.0-16.0)
Hct 30.1 L %
(37.0-47.0)
MCHC 30.9 L g/dL
(33.0-37.0)
RDW 20.9 H %
(11.5-14.5)
Abs Immat Gran (auto) 5.2 H 10^3/uL
(0-0.05)
Absolute Neuts (auto) 49.3 H 10^3/uL
(1.4-6.5)
Absolute Lymphs (auto) 0.7 L 10^3/uL
(1.2-3.4)
Immature Gran % 9.3 H %
(0-0.5)
Neutrophils % 88.2 H %
(42.2-75.2)
Lymphocytes % 1.2 L %
(20.5-51.1)
Monocytes % 1.0 L %
(1.7-9.3)
BUN 32 H mg/dl
(7-17)
Glucose 316 H mg/dl
(70-99)
Alkaline Phosphatase 142 H U/L
(38-126)
Total Protein 6.0 L g/dl
(6.3-8.2)
11/24/24 15:38
11/24/24 15:38
Vital Signs
Initial and Last Documented VS:
Initial Vital Signs
Temp Pulse Resp BP Pulse Ox
98.2 F 93 22 103/61 99
11/24/24 15:24 11/24/24 15:24 11/24/24 15:24 11/24/24 15:24 11/24/24 15:24
Last Documented Vital Signs
Temp Pulse Resp BP Pulse Ox
98.2 F 83 18 119/50 98
11/24/24 15:24 11/24/24 20:58 11/24/24 20:58 11/24/24 20:58 11/24/24 20:58
<Marci Fitzpatrick MD - Last Filed: 11/24/24 20:45>
Orders/Labs/Results
Orders:
Orders
11/24/24 15:29
EKG [Electrocardiogram (*1)] Urgent
Reason for Study: Vertigo / Dizzy
EKG- Treatment ONCE
11/24/24 15:38
Complete Blood Count/With Diff Urgent
Comprehensive Metabolic Panel Urgent
Pro-BNP [NT-proBNP] Urgent
Troponin I Urgent
11/24/24 18:56
CT Head W/o Iv Contrast Urgent
Comment:
Reason For Exam: confusion
CR Chest - 2 Views Urgent
Comment:
Reason For Exam: sob
Abnormal Lab Results
11/24/24
15:38
WBC 55.8 H* 10^3/uL
(4.8-10.8)
RBC 3.43 L 10^6/uL
(4.20-5.40)
Hgb 9.3 L g/dL
(12.0-16.0)
Hct 30.1 L %
(37.0-47.0)
MCHC 30.9 L g/dL
(33.0-37.0)
RDW 20.9 H %
(11.5-14.5)
Abs Immat Gran (auto) 5.2 H 10^3/uL
(0-0.05)
Absolute Neuts (auto) 49.3 H 10^3/uL
(1.4-6.5)
Absolute Lymphs (auto) 0.7 L 10^3/uL
(1.2-3.4)
Immature Gran % 9.3 H %
(0-0.5)
Neutrophils % 88.2 H %
(42.2-75.2)
Lymphocytes % 1.2 L %
(20.5-51.1)
Monocytes % 1.0 L %
(1.7-9.3)
BUN 32 H mg/dl
(7-17)
Glucose 316 H mg/dl
(70-99)
Alkaline Phosphatase 142 H U/L
(38-126)
Total Protein 6.0 L g/dl
(6.3-8.2)
11/24/24 15:38
11/24/24 15:38
Vital Signs
Initial and Last Documented VS:
Initial Vital Signs
Temp Pulse Resp BP Pulse Ox
98.2 F 93 22 103/61 99
11/24/24 15:24 11/24/24 15:24 11/24/24 15:24 11/24/24 15:24 11/24/24 15:24
Last Documented Vital Signs
Temp Pulse Resp BP Pulse Ox
98.2 F 83 18 119/50 98
11/24/24 15:24 11/24/24 20:58 11/24/24 20:58 11/24/24 20:58 11/24/24 20:58
<Duncan Marie PA-C - Last Filed: 11/25/24 06:04>
MDM/Problems Addressed
Differential Diagnosis Includes:
Episode of involuntary motions of the arms. Question tremor versus seizure. This is bilateral. Do not suspect CVA or TIA. She was allegedly hypoxic at home but is currently on her baseline oxygen and is not hypoxic. BNP is elevated today she
does she had some edema. Chest x-ray pending to evaluate heart failure or volume overload. CT of the head ordered
<Duncan Marie PA-C - Last Filed: 11/25/24 06:04>
*Pulse Oximetry
SaO2: 99
Nasal Cannula flow liters per minute: 3
Patient hypoxic: no
Comment: on 3l
*Critical Care Note
Total Time (30-74mins, 75-104mins- exclusive of procedures): Not Applicable
<Marci Fitzpatrick MD - Last Filed: 11/24/24 20:45>
Update Note
Update Note:
Moderate-sized (3.1 cm) region of transcortical encephalomalacia in the anterolateral right frontal lobe and extensive surrounding white matter disease consistent with previous radiation therapy which appears unchanged.
2. Previous right frontal craniotomy with a small subdural fluid collection deep to the craniotomy which appears unchanged.
3. Moderate white matter disease in the left frontal lobe and mild white matter disease in the parietal lobes which appears unchanged.
4. Moderate diffuse global cerebral and cerebellar volume loss.
cxr Diffuse interstitial prominence with mild bibasilar opacities favored to represent edema/atelectasis, less likely atypical pneumonia.
ED Attending Note
<Duncan Marie PA-C - Last Filed: 11/25/24 06:04>
-
Portions of this chart may have been created with voice recognition software.� Occasional wrong word or��sound alike� substitutions may have occurred due to the inherent limitations of voice recognition software.
<Marci Fitzpatrick MD - Last Filed: 11/24/24 20:45>
ED Attending Note
Patient seen and examined by attending physician: Yes
I performed the substantive portion of visit, reviewed & personally made and approve the management plan that is documented in note by myself or MAGDALENA.: Yes
ED Attending Note:
Patient remains neurologically intact here. No findings to suggest acute stroke, or other serious etiology. Ultrasound reviewed from November 18 patient does have coronary artery stenosis 70% on the right and 50 to 60% on the left, plan is to consider
surgery after patient finishes her treatments for cancer. Discussed with patient importance of follow-up and reasons to return the emergency department.
Discharge Plan
Departure
Patient Disposition: Home (Routine Discharge)
Date of Disposition: 11/24/24
Time of Disposition: 20:44
Patient with high blood pressure during this ER visit?: No
Condition: Good
Discharge Problem:
Possible seizure
Instructions: Seizures
Prescriptions:
No Action
albuterol sulfate 1 PUFF HFA aerosol inhaler
2 puff inhalation R Q4HPRN PRN (Reason: sob/wheezing)
atorvastatin 40 MG tablet
40 mg PO HS
fenofibrate nanocrystallized 48 MG tablet
48 mg PO HS
pantoprazole 40 MG tablet,delayed release (DR/EC)
40 mg PO DAILY
sertraline 50 MG tablet
50 mg PO HS
montelukast 10 MG tablet
10 mg PO DAILY
spironolactone 25 mg Tablet
25 mg PO DAILY
levothyroxine [Synthroid] 125 mcg Tablet
125 mcg PO DAILY
digoxin 125 mcg (0.125 mg) Tablet
125 mcg PO DAILY
verapamil 240 mg capsule,ext rel. pellets 24 hr
240 mg PO DAILY
metoprolol succinate 25 mg Tablet Extended Release 24 Hr
25 mg PO DAILY Qty: 30 0RF
metformin 500 mg Tablet Extended Release 24 Hr
500 mg PO BID
aspirin 81 mg tablet,delayed release (DR/EC)
81 mg PO DAILY
allopurinol 300 mg Tablet
300 mg PO DAILY
therapeutic multivitamin Tablet
1 tab PO DAILY
prochlorperazine maleate [Compazine] 10 mg Tablet
10 mg PO BIDPRN PRN (Reason: nausea)
gabapentin 300 mg Capsule
300 mg PO HS
bumetanide 2 mg tablet
2 mg PO BID
Referrals:
Betsy Heard NP [Family Provider, Internal Medicine] - Next open appointment
Activity Restrictions/Additional Instructions:
CONTINUE WITH YOUR CURRENT MEDICATION REGIMEN. IT IS POSSIBLE THAT YOU HAD A SEIZURE TODAY BUT NOT YET CERTAIN. YOU WILL NEED TO SEE YOUR PRIMARY CARE DOCTOR AND NEUROLOGIST AND CLOSE FOLLOW-UP. IF YOU DEVELOP CHEST PAIN, SHORTNESS OF BREATH,
NUMBNESS, TINGLING, CHANGE IN VISION, CHANGE IN SPEECH, DIZZINESS, SEVERE HEADACHE, OR OTHER WORRISOME SIGNS, PLEASE RETURN TO THE ER IMMEDIATELY
Interventions
Interventions:
*Risk Screen - Suicide Last Done: 11/24/24 15:24
*General Assessment Last Done: 11/24/24 15:24
*Neglect/Abuse Screening Last Done: 11/24/24 15:24
*ED- Fall Risk Assessment Last Done: 11/24/24 15:24
*ED COVID-19 Vaccine History Last Done: 11/24/24 15:24
*Nursing Disposition Last Done: 11/24/24 21:08
ED- Cardiac Assessment Last Done: 11/24/24 15:24
ED- Neurological Assessment Last Done: 11/24/24 15:24
Discharge Date and Time
Discharge Date/Time: 11/24/24 21:17
Print Language: SERBIAN
[2024-11-24 20:07] VITALS: BP 96/65
[2024-11-24 20:58] VITALS: BP 119/50
== END 2024-11-24 21:17 | disposition home or self-care (01) ==
LOC: EMR 15:23
PROVIDERS: EMERGENCY PHYSICIAN Emergency Medicine; FAMILY PHYSICIAN Internal Medicine
DX: R55 Syncope and collapse (principal); C85.90 Non-Hodgkin lymphoma, unspecified, unspecified site; E03.9 Hypothyroidism, unspecified; E11.42 Type 2 diabetes mellitus with diabetic polyneuropathy; E78.00 Pure hypercholesterolemia, unspecified; G40.909 Epilepsy, unspecified, not intractable, without status epilepticus; I11.0 Hypertensive heart disease with heart failure; I50.9 Heart failure, unspecified; I25.10 Atherosclerotic heart disease of native coronary artery without angina pectoris; G93.89 Other specified disorders of brain; J44.89 Other specified chronic obstructive pulmonary disease; Z95.5 Presence of coronary angioplasty implant and graft; I48.91 Unspecified atrial fibrillation; Z87.891 Personal history of nicotine dependence
CPT/HCPCS: 99285; 70450; 71046; 80053; 83880; 84484; 85025; 93005

== ENCOUNTER 2024-11-26 05:06 | Observation (INO) | payer MEDICARE, SELFPAY ==
[2024-11-25 20:56] VITALS: BP 123/52
[2024-11-25 22:51] VITALS: BP 126/60
[2024-11-26] VITALS (8 sets, daily range): BP systolic 92–116; BP diastolic 51–76; PULSE 74–83
--- NOTE | 2024-11-26 01:15 | ED.GENMED ---
History of Present Illness
General
Chief Complaint: Blood Pressure Problem
Source: patient
Exam Limitations: none
Time Seen by Provider: 11/26/24 01:01
Nursing documentation reviewed up to this point in time: agreed with
History of Present Illness
History of Present Illness:
Note:
CHIEF COMPLAINT(S)
Low blood pressure.
HISTORY OF PRESENT ILLNESS
The patient is a 74-year-old female with a past medical history of diabetes, coronary artery disease, CHF, A-fib, lymphedema who presents with concern for low blood pressure, as directed by her primary care physician. This is apparently a chronic
issue. The patient reports that her blood pressure is always low, reports that is been this way for multiple months. However, patient notes that the past week, her blood pressure has been noted to be systolically in the 70s to 80s and she reports
that no one can figure out why. Her family will do routine blood pressure checks with a home blood pressure cuff and have noted these changes. She does not have any symptoms associated with these pressure drops. She has not had any syncopal
episodes, chest pain, shortness of breath, dizziness, lightheadedness. My evaluation, patient is wearing oxygen. Patient reports that in the evening times, she is chronically on 2 to 3 L as needed. Patient reports that this is her baseline.
Patient was seen here yesterday for a possible seizure. She had an event where she became briefly unresponsive lasting at 10 seconds while watching TV, she had a workup done which involved blood work, EKG, CAT scan of the head as well as a chest
x-ray and it showed white matter disease and encephalomalacia however she was noted to be neurologically intact and they discussed follow-up as an outpatient with neurology and there was question of possible tremor versus seizure. She had an
emergency department visit with her primary care provider today and they noted her blood pressure to be systolically in the 60s to 80s and noticed her pulse ox to be 88 to 90% on 3 L of oxygen. Patient does wear oxygen as needed chronically.
Patient reports that these readings are not unusual for her. In the ER, she is satting 95% on her typical 2 L. She denies any shortness of breath. Patient reports that she takes a lot of medications to lower her blood pressure but she is unsure
what medication regimen she is on currently. Her vascular surgeon is Dr. Fitzpatrick, her autoclave operator is Dr. Mejía with [facility], and her foxing closer is Dr. Jonas.
ADDITIONAL HISTORY OBTAINED FROM SOURCES OTHER THAN THE PATIENT
According to the patient�s report, her primary care doctor expressed concerns about her low blood pressure and advised her to seek evaluation in the emergency department.
CHRONIC MEDICAL CONDITIONS SIGNIFICANTLY AFFECTING CARE
Chronic conditions affecting care: cardiac murmur, history of Watchman device placement, prior ablations and cardioversions, bilateral carotid artery blockages (50% and 70%), lymphedema.
SOCIAL HISTORY
The patient uses supplemental oxygen at night.
PHYSICAL EXAM
Nursing notes reviewed and vital signs reviewed.
General: Patient is well appearing and in no acute distress; non-toxic
Skin: Warm and dry, no rashes or lesions
Head: Normocephalic, atraumatic
Eyes: Sclera non-icteric. EOMs intact.
Cardiac: Regular rate and rhythm, no murmurs
Peripheral Vascular: No lower extremity swelling or edema
Pulm: Normal respiratory effort, no wheezes, rales, or rhonchi
Abdomen: No abdominal tenderness to palpation
Neuro: CN II-XII intact, no focal neurologic deficits.
Psychiatric: Appropriate mood and affect.
PLAN
Reviewed plan and case with ED attending.
Administer intravenous fluids to support blood pressure.
Obtain CXR, cbc, cmp, ecg.
Admit for observation
DIFFERENTIAL DIAGNOSIS
The Differential Diagnosis includes, in no particular order and is not limited to:
- Medication-related hypotension/polypharmacy
- Orthostatic hypotension
- Dehydration
- Heart failure
- Arrhythmia
- Autonomic dysfunction
- Adrenal insufficiency
- Aortic stenosis/valvular heart disease
PRIOR RECORD REVIEW
-reviewed record from 11/24/24 pt seen for possible seizure vs tremor
-reviewed discharge summary from 10/18/24 pt seen for acute heart failure exacerbation
MDM/DISPOSITION
The patient is a 74-year-old female with a past medical history of diabetes, coronary artery disease, CHF, A-fib, lymphedema who presents with concern for low blood pressure. She states that this is a chronic issue but there has been reportedly very
low readings this past week in the office and at home. Her labs appear at baseline. Her CXR appears unchanged from 2 days ago. Her lungs are clear. Patient has a significant cardiac history and will require admission for further workup and
observation on telemetry.
Past History
Past History
ED Past Medical History: Arrthythmia (Atrial fibrillation), Asthma, CAD, Cancer (Skin, meningioma grade 2 with radiation therapy and craniotomy), CHF, COPD, HTN, Hypercholesterolemia, NIDDM, VT, Hypothyroidism, Psychiatric (Major depression), Other
(PNA, Cellulitis, Chronic Lymphedema, bilateral heel ulcerations, osteomyelitis of the left heel, morbid obesity) and Other (Sepsis, peripheral neuropathy, anemia, rosacea, COVID 19, seizure disorder, pulmonary artery hypertension, nephrolithiasis,
B complex deficiency, prior acute respiratory failure); Negative Renal failure (Stage IIIa)
ED Past Surgical History: Brain (Right frontal craniotomy for meningioma 2022), Cardiac (cardioversion, Stents X 2, Watchman device), Cholecystectomy (1982), Orthopedic (Left reverse shoulder arthroplasty December 2023), Urological (Bladder repair,
kidney stone extraction) and Other (Right femoral artery cannulation January 2024, Mohs surgery forehead 2021)
Social History
Tobacco: Former smoker
Alcohol: Daily (Vodka 1 large glass)
Drug: None
Personal:
Living: alone
Employment: Retired
Family History
Family History: Hypertension
Review of Systems
Review of Systems
All Other Systems: ROS reviewed and negative except as documented in HPI and ROS
Phy Exam
Physical Exam
Physical Exam:
see hpi
Course
Orders/Labs/Results
Orders:
Orders
11/26/24 01:17
Electrocardiogram (*1) Urgent
Reason for Study: Other
Other Reason for Exam: hypotension
EKG- Treatment ONCE
11/26/24 01:24
CR Chest - 2 Views Urgent
Comment:
Reason For Exam: hypoxia
11/26/24 01:53
Complete Blood Count/With Diff Urgent
Comprehensive Metabolic Panel Urgent
11/26/24 03:18
0.9% Sodium Chloride 500 ml [Nss] 500 ml IV BOLUS
11/26/24 03:48
Orthostatic VS- Treatment ONCE
11/26/24 04:22
Admit/Transfer Patient As Directed
Co-Sign Provider:
Level of Care: Observation services
Assign to:: Telemetry
Physician / Group: Kar
Diagnosis: Hypotension
Reason for Telemetry: Subacute Heart Failure
Date to Stop Telemetry: 11/28/24
Time to Stop Telemetry: 11:00
PRN Pain Medication Management As Directed
May give lesser potent ordered pain med per pt: Yes
preference::
Protocol:: Medication orders for pain may be administered in a
manner that supports deferring to patient preference
when the pt is:
- Requesting an ordered lesser potent pain medication.
Least to most potent pain medications are defined
as: acetaminophen < NSAID < tramadol < opioids
(morphine, oxycodone, hydromorphone).
- Requesting a lesser dose of the same medication IF
ORDERED.
- Requesting a less intrusive route of administration
if both routes are prescribed by the provider (PO <
IV).
11/26/24 04:24
Code Status As Directed
Resuscitation Status: Full Code
11/26/24 05:00
Flush (0.9% Sodium Chloride) [Flush (Nss)] See Dose Instructions IV PER PROTOCOL
11/26/24 Breakfast
1800 calorie (15 carb) Diabetic
At Your Request: Full Participation
Diabetic Diet: Sodium, 2 Gram
11/26/24 07:32
Acetaminophen [Tylenol] 650 mg PO Q6HPRN PRN
Albuterol [ProAIR HFA INHALER] 2 puff INH R Q4HPRN PRN sob/wheezing
Prochlorperazine [Compazine] 10 mg PO Q8HPRN PRN
11/26/24 07:32
Echo 2D MMode Color/Doppler Routine
Reason for Study: heart failure
CARDIOLOGY CONSULT Routine
Consulting Provider: Minerva Epps
Was physician already notified: No
Reason for consult: hypotension on GDMT/rate control and bumex
Consult Notification Routine
Specialty to Notify: Cardiology
Date consulting provider notified: 11/26/24
Time consulting provider notified: 08:33
Notified:: Provider
HF DIETARY CONSULT Routine
HF EDUCATOR CONSULT Routine
Comment:
Activity As Directed
Activity Level: With Assistance
Intake/ Output As Directed
Frequency: Per unit guidelines
Patient Education As Directed
Type: CHF folder
Comment: give on admission. Document in Interdisciplinary Education record
Sleep Apnea Assessment by RN As Directed
Comment:
Physician Instructions:
Vital Signs As Directed
Frequency: Other
Additional Instructions:: Q12 or per unit guidelines if more frequent.
Weight As Directed
Frequency: Daily
Type of Scale: Standing Scale
Comment: Daily morning weight. If unable to stand, use balanced bed scale.
O2 Therapy [RESP] Routine
Nasal Cannula Liter Flow: 2 LPM
Titrate/Wean O2 to maintain O2 sat greater than (%): 93
Pulse Ox/cont/shift [RESP] Routine
Quantity: 1
Special Instructions: Daily pulse oximetry at rest. If greater than 92% at rest also obtain pulse oximetry
while ambulating as tolerated.
DX Deep Vein Thrombosis Video Routine
11/26/24 08:00
Allopurinol [Zyloprim] 300 mg PO DAILY
Aspirin Low Dose EC [Aspir Low (Enteric Coated)] 81 mg PO DAILY
Levothyroxine [Synthroid] 125 mcg PO DAILY@0600
Metformin Extended Release [Glucophage Xr Extended Release] 500 mg PO BID@0800,1700
Metoprolol Xl [Toprol Xl] 25 mg PO DAILY
Montelukast Sodium [Singulair] 10 mg PO DAILY
Pantoprazole [Protonix] 40 mg PO DAILY
Verapamil Extended Release [Calan Extended Release] 240 mg PO DAILY
11/26/24 12:00
Digoxin [Lanoxin] 125 mcg PO DAILY@1200
11/26/24 18:00
Enoxaparin Sodium [Lovenox] 40 mg SC QPM
11/26/24 22:00
Atorvastatin [Lipitor] 40 mg PO HS
Bumetanide [Bumex] 2 mg PO HS
Fenofibrate [Tricor] 48 mg PO HS
Gabapentin [Neurontin] 300 mg PO HS
Sertraline HCl [Zoloft] 50 mg PO HS
11/27/24 06:00
Basic Metabolic Panel IN AM
Cortisol, Random IN AM
Digoxin IN AM
Magnesium IN AM
TSH Reflex To Free T4 IN AM
11/28/24 06:00
Basic Metabolic Panel IN AM
11/28/24 11:00
DC Protocol for Telemetry ONCE
11/29/24 06:00
Basic Metabolic Panel IN AM
Abnormal Lab Results
11/26/24
01:53
WBC 32.7 H 10^3/uL
(4.8-10.8)
RBC 3.04 L 10^6/uL
(4.20-5.40)
Hgb 8.3 L g/dL
(12.0-16.0)
Hct 26.9 L %
(37.0-47.0)
MCHC 30.9 L g/dL
(33.0-37.0)
RDW 20.4 H %
(11.5-14.5)
Abs Immat Gran (auto) 2.4 H 10^3/uL
(0-0.05)
Absolute Neuts (auto) 28.5 H 10^3/uL
(1.4-6.5)
Absolute Lymphs (auto) 0.7 L 10^3/uL
(1.2-3.4)
Immature Gran % 7.5 H %
(0-0.5)
Neutrophils % 87.2 H %
(42.2-75.2)
Lymphocytes % 2.2 L %
(20.5-51.1)
BUN 29 H mg/dl
(7-17)
Glucose 215 H mg/dl
(70-99)
AST 11 L U/L
(14-36)
Total Protein 5.7 L g/dl
(6.3-8.2)
Albumin 3.4 L g/dl
(3.5-5.0)
11/26/24 01:53
11/26/24 01:53
Vital Signs
Initial and Last Documented VS:
Initial Vital Signs
Temp Pulse Resp BP Pulse Ox
97.8 F 87 16 123/52 100
11/25/24 20:56 11/25/24 20:56 11/25/24 20:56 11/25/24 20:56 11/25/24 20:56
Last Documented Vital Signs
Temp Pulse Resp BP Pulse Ox
97.6 F 90 18 113/59 97
11/26/24 07:30 11/26/24 07:30 11/26/24 07:30 11/26/24 07:30 11/26/24 07:30
*Pulse Oximetry
SaO2: 98
Nasal Cannula flow liters per minute: 3
Oxygen Mode of Delivery: Room air
Patient hypoxic: yes (she is chronically on as needed oxygen)
*Critical Care Note
Total Time (30-74mins, 75-104mins- exclusive of procedures): Not Applicable
ED Attending Note
-
Portions of this chart may have been created with voice recognition software.� Occasional wrong word or��sound alike� substitutions may have occurred due to the inherent limitations of voice recognition software.
Discharge Plan
Departure
Patient Disposition: Admit
Date of Disposition: 11/26/24
Time of Disposition: 03:50
Admit to: Med/Surg
Presentation/result/management discussed w/ accepting MD/DO: Hospitalist
Condition: Fair
Discharge Problem:
Hypotension
Interventions
Interventions:
*Risk Screen - Suicide Last Done: 11/25/24 20:56
*General Assessment Last Done: 11/25/24 20:56
*Neglect/Abuse Screening Last Done: 11/26/24 00:01
*ED- Fall Risk Assessment Last Done: 11/26/24 00:00
*ED COVID-19 Vaccine History Last Done: 11/26/24 00:00
*Nursing Disposition Last Done: 11/26/24 06:45
ED- Cardiac Assessment Last Done: 11/26/24 00:01
ED- Neurological Assessment Last Done: 11/26/24 00:01
ED- Pulmonary Assessment Last Done: 11/26/24 00:01
Discharge Date and Time
Discharge Date/Time: 11/26/24 06:45
[2024-11-26 02:16] LABS: Hematocrit 26.9 % (37.0-47.0); Hemoglobin 8.3 g/dL (12.0-16.0); Mean Corp Hgb Conc. 30.9 g/dL (33.0-37.0); Mean Corpuscular Hgb 27.3 pg (27.0-31.0); Mean Corpuscular Volume 88.5 fL (81.0-99.0); Mean Platelet Volume 9.6 fL (7.4-10.4); Platelet Count 226 10^3/uL (130-400); Red Blood Cell Count 3.04 10^6/uL (4.20-5.40); Red Cell Dist. Width 20.4 % (11.5-14.5); White Blood Cell Count 32.7 10^3/uL (4.8-10.8)
[2024-11-26 02:23] LABS: ALT (SGPT) < 10 U/L (0-35); AST (SGOT) 11 U/L (14-36); Albumin 3.4 g/dl (3.5-5.0); Alkaline Phosphatase 126 U/L (38-126); Blood Urea Nitrogen 29 mg/dl (7-17); Carbon Dioxide 27 mmol/L (22-30); Chloride 107 mmol/L (98-107); Glucose 215 mg/dl (70-99); Potassium 3.9 mmol/L (3.5-5.1); Sodium 141 mmol/L (135-145); Total Bilirubin 0.4 mg/dl (0.2-1.3); Total Protein 5.7 g/dl (6.3-8.2); eGFR > 60.00
[2024-11-26 03:14] LABS: % Basophils 0.2 % (0-2); % Eosinophils 0.9 % (0-6); % Immature Granulocytes 7.5 % (0-0.5); % Lymphocytes 2.2 % (20.5-51.1); % Neutrophils 87.2 % (42.2-75.2); Absolute Basophils 0.1 10^3/uL (0-0.2); Absolute Eosinophils 0.3 10^3/uL (0-0.7); Absolute Immature Granulocytes 2.4 10^3/uL (0-0.05); Absolute Lymphocytes 0.7 10^3/uL (1.2-3.4); Absolute Monocytes 0.6 10^3/uL (0.1-0.6); Absolute Neutrophils 28.5 10^3/uL (1.4-6.5); Nucleated Red Blood Cells % 0 %
--- NOTE | 2024-11-26 04:01 | HPS.HSE ---
Family Physician
-
Family Physician: Betsy Heard
Chief Complaint
-
Low blood pressure
History of Present Illness
This is a 74-year-old female who has a past medical history significant for congestive heart failure with preserved EF, COPD on nocturnal home O2, pulmonary atrial fibrillation status post watchman, CAD, valvular heart disease, CVA carotid stenosis
pending intervention, neh-bntymuv-jzhsqanro diabetes, PAD, TIAs, history of meningioma resection and currently on chemotherapy for non-Hodgkin's lymphoma who was sent into the emergency department from PMDs clinic for low blood pressure of 60-80
systolic over 30-40. PMD also concerned about patient's oxygen requirement stating that she is satting 88 to 90% on 3 L.
Patient has self shows no significant concern. She did note that she was sent to the emergency department from infusion clinic on 622 due to seizure-like activity. She was evaluated in the emergency department. She had no seizure-like activity.
She had workup which was unremarkable with negative CT head and x-ray. Ultimately patient was discharged. Patient self reports the last 1 was concern but she was not feeling any symptoms. She denies any dizziness or lightheadedness. She denies
any palpitations. She denies having chest pain. She denies orthopnea or PND. Patient reported that she has lost up to 40 pounds over the last 6 months and medications have been titrated down. She states she has not been down to Bumex 2 mg at
bedtime. However she remains on GDMT and rate control including Verapamil, metoprolol and spironolactone. She denies any recent changes to her digoxin.
On arrival in the emergency department she was afebrile with a temp of nine 7.8, she is satting 99% on 4 L. Blood pressure was 100/60 with a pulse rate of 87. ECG shows atrial fibrillation at a rate of 83 with a right bundle unchanged from prior.
Labs unchanged from prior with elevated WBCs from her non-Hodgkin's lymphoma. Chest x-ray from today is unchanged.
Medical History
Past Medical History
Past Medical History: Reports Arrhythmia, CAD, CHF, COPD, HTN, Hypercholesterolemia, Hypothyroidism, NIDDM and Renal Failure
Past Surgical History: Reports Cholecystectomy, Orthopedic and Urological
Social History
Tobacco: Former Smoker
Alcohol: Former
Drug: None
Personal:
Living: With Family
Family History
Family History: Hypertension
Allergies / Home Medications
Allergies reflects when Allergies were last updated in [facility].
Home Medications with original date entered in [facility]
Allergy/Medication List:
Allergies
Allergy/AdvReac Type Severity Reaction Status Date / Time
cat dander Allergy ASTHMA/SOB Verified 07/10/24 22:16
levofloxacin Allergy Hives Verified 07/10/24 22:16
[From Levaquin Leva-Carlos]
Penicillins Allergy Shortness Verified 07/10/24 22:16
of Breath
piperacillin Allergy Anaphylaxis, Verified 07/10/24 22:16
acute
hypoxemic
resp f,
hypotensitching
01/25/24
Sulfa (Sulfonamide Allergy Hives Verified 07/10/24 22:16
Antibiotics)
vancomycin [Vancomycin] Allergy Rash/red Verified 07/10/24 22:16
tino
syndrome
Home Medications
albuterol sulfate 90 mcg/actuation aerosol inhaler 2 puff inhalation R Q4HPRN PRN sob/wheezing 09/27/19
atorvastatin 40 mg tablet 40 mg PO HS High cholesterol 04/23/21
fenofibrate nanocrystallized 48 mg tablet 48 mg PO HS High cholesterol 07/13/21
montelukast 10 mg tablet 10 mg PO DAILY Allergies 11/30/21
pantoprazole 40 mg tablet,delayed release 40 mg PO DAILY Gastrointestinal issue 11/30/21
sertraline 50 mg tablet 50 mg PO HS Depression 11/30/21
digoxin 125 mcg (0.125 mg) tablet 125 mcg PO DAILY Heart Disease/Condition 08/22/23
fluticasone 250 mcg-salmeterol 50 mcg/dose blistr powdr for inhalation (Advair Diskus) 1 inh inhalation R BIDPRN PRN sob/wheezing 08/22/23
levothyroxine 125 mcg tablet (Synthroid) 125 mcg PO DAILY Thyroid 08/22/23
spironolactone 25 mg tablet 25 mg PO DAILY Heart Failure 08/22/23
verapamil 240 mg 24 hr capsule,extended release 240 mg PO DAILY Blood Pressure 11/04/23
metoprolol succinate 25 mg tablet,extended release 24 hr 25 mg PO DAILY #30 tabs 11/06/23
aspirin 81 mg tablet,delayed release 81 mg PO DAILY Blood Clot Prevention/Tx 06/17/24
furosemide 80 mg tablet 80 mg PO NOON Fluid Retention/Swelling 06/17/24
furosemide 80 mg tablet 120 mg PO DAILY Fluid Retention/Swelling 06/17/24
metformin 500 mg tablet,extended release 24 hr 1,000 mg PO BID Diabetes 06/17/24
acetaminophen 650 mg tablet,extended release 1,300 mg PO Q8HPRN PRN mild pain 09/07/24
allopurinol 300 mg tablet 300 mg PO DAILY 09/07/24
estradiol 0.01% (0.1 mg/gram) vaginal cream (Estrace) 1 appful vaginal MOTH 10/15/24
insulin glargine 100 unit/mL subcutaneous solution 3 unit SC HS 10/15/24
potassium chloride 20 mEq tablet,extended release 20 meq PO BID 10/15/24
prochlorperazine maleate 10 mg tablet (Compazine) 10 mg PO BIDPRN PRN nausea 10/15/24
therapeutic multivitamin 1 tab PO DAILY 10/15/24
zolpidem 12.5 mg tablet,extended release,multiphase 12.5 mg PO HSPRN PRN sleep 10/15/24
Review of Systems
-
History Source: Patient
Constitutional: Reports Weight Loss
EENT: Reports No Symptoms
Respiratory: Reports No Symptoms
Cardiac: Reports No Symptoms
Abdomen/GI: Reports No Symptoms
: Reports No Symptoms
Musculoskeletal: Reports No Symptoms
Skin: Reports No Symptoms
Neurological: Reports No Symptoms
Endocrine: Reports No Symptoms
Hematologic/Lymphatic: Reports No Symptoms
Psych: Reports No Symptoms
Physical Exam
Vital Signs
Vital Signs
Temp Pulse Resp BP Pulse Ox
97.8 F 87 14 100/60 99
11/25/24 20:56 11/26/24 02:31 11/26/24 02:31 11/26/24 01:00 11/26/24 02:00
Physical Exam
General: Comfortable, Conversant and Obese
HEENT: NormoCephalic, Anicteric, Moist mucous membranes, Atraumatic, Good Dentition, PERRLA and Oxygen
Respiratory: Clear
Cardiac: S1/S2, Irregular Rhythm and Peripheral Edema
Breast: Deferred by me
GI: Soft, Non Tender, Non Distended and Normal Bowel Sounds
Rectal: Deferred by Provider
Genito-urinary: Deferred by me
Musculoskeletal: No Clubbing, No Cyanosis, Edema, Left Lower Extremity and Edema, Right Lower Extremity
Skin: Warm
Neuro: AO x 3 and Nonfocal/grossly intact
Hematologic/Lymphatic: No Lymphadenopathy
Psych: Calm
Laboratory Results
-
11/26/24 01:53
11/26/24 01:53
Laboratory Results
Total Bilirubin 0.4 mg/dl (0.2-1.3) 11/26/24 01:53
AST 11 U/L (14-36) L 11/26/24 01:53
ALT < 10 U/L (0-35) 11/26/24 01:53
Alkaline Phosphatase 126 U/L (38-126) 11/26/24 01:53
Data Reviewed
-
Diagnostic Radiology: Image Personally Visualized and interpreted
Medical Tests (Nuc Med, Echo, EKG etc): Image Personally Visualized and interpreted
Lab Data: Labs Reviewed by me
Old Records: Reviewed
Impression/Plan
-
IMPRESSION:
74-year-old female with history of congestive heart failure EF preserved, permanent atrial fibrillation status post Watchman procedure, hypothyroid, mgi-jjrgxbw-yozaqebcs diabetes, COPD on nocturnal O2, valvular heart disease, carotid stenosis
status post TIAs, hyperlipidemia and history of non-Hodgkin's lymphoma currently on chemotherapy will presents to the emergency department after being found to be hypotensive at the PMD clinic today. Despite hypotension patient was asymptomatic.
Denying lightheadedness dizziness headache chest pain palpitations or shortness of breath. She feels that medications are excessive in the setting of significant (up to 50 pound) weight loss over the last 6 months. She denies any acute changes in
medications. Denies any fevers or chills chest pain no nausea or vomiting. In the emergency department blood pressure was reported in the 90s/60s. ECG is unchanged with atrial fibrillation at rate of 83, blood work overall similar to prior.
X-ray is unchanged. No urinary symptoms and no other signs of infection.
PLAN:
Hypotension -patient is not hypotensive in the ED, but she may be relatively hypotensive in the more upright position similar to how her blood pressure was taken at PMD office.
- Admit to telemetry
- Will measure her seated blood pressure 1 compare with supine for orthostatics
- If patient orthostatic, the only blood pressure medication that can be suitably adjusted his aldactone
- She is only on bumex 2 mg at bedtime and she is still edematous although this is likely mostly peripheral edema from chronic lymphedema
- check echo
- Check digoxin level
-Check cortisol and TSH
- If blood pressure remains low, consult cardiology as patient may need midodrine given necessity of rate control for A-fib
Atrial fibrillation -permanent A-fib status post Watchman
- Continue metoprolol succinate 25mg daily
- Continue verapamil
� Continue digoxin pending levels
DM 2
- Continue metformin for now
� Lantus 3 units at bedtime
- Sliding scale insulin
CHF�as above we will continue to Bumex, spironolactone and metoprolol
- cardiology consult
COPD�no increased oxygen requirements at this time x-ray unchanged no wheezing
� As needed nebs
- Continue montelukast
DVT prophylaxis�Lovenox subq
CODE STATUS�full code
--- NOTE | 2024-11-26 07:51 | CON.CAR ---
Addendum entered and electronically signed by Javier Orona MD 11/26/24 10:58:
Patient seen and examined in collaboration with SPORTS MANAGER; agree with below.
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
obesity, and non-Hodgkin's lymphoma (currently on R-CHOP) admitted with low blood pressure.
- The patient denies any cardiac symptoms related to low blood pressure.
- The patient's low blood pressure is likely multifactorial, but her blood pressure typically runs relatively low at home.
- Will decrease spironolactone from 25 mg to 12.5 mg daily and will decrease verapamil HCl from 240 mg daily to 180 mg daily.
- Continue other cardiac medications at current doses.
- Will obtain a limited echocardiogram to reassess LVEF and to rule out a pericardial effusion; if unremarkable/no change, patient can follow-up with Cardiology as an outpatient.
Original Note:
Consultation
Consultation Request
Date/Time Consultation Requested: 11/26/2024 07:30
Date/Time Consultation Performed: 11/26/2024 07:50
Requesting Provider: Dr. Lakhani
Performing Provider: DB Diggs for Dr. Orona
Reason for Consultation: Hypotension on GDMT
Medical History
-
Chief Complaint: Shortness of breath
History of Present Illness:
Patricia Clark (Liz) is a 74-year-old female (known to Dr. 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
stenosis, NIDDM, hypertension, hypercholesterolemia, and non-Hodgkin's lymphoma currently receiving chemotherapy who presented to the emergency department with a chief complaint of hypotension. She was referred by her PCP. She remained asymptomatic
with her hypotension. She is having no chest pain, shortness of breath, dizziness, nor presyncope/syncope. Cardiology's been consulted to adjust GDMT in the setting of hypotension.
She missed 2 doses of bumetanide. She is asking for intravenous dose.
Past Medical History
Past Medical History: Arrhythmias (Permanent atrial fibrillation [Watchman]), Asthma, CAD, Cancer (Non-Hodgkin's lymphoma), CHF, HTN, Hypercholesterolemia, NIDDM, Valvular Disease (Mitral regurgitation, tricuspid regurgitation) and Other (TIA,
carotid stenosis)
Past Surgical History: Brain (Meningioma [[facility], 2022]), Orthopedic, Tonsilectomy and Urological
Social History
Tobacco: Former Smoker
Living: With Family (Son & DIL)
Employment: Retired
Family History
Family History: Reviewed & Not Pertinent
Allergies / Home Medications
Allergy/AdvReac Type Severity Reaction Status Date / Time
cat dander Allergy ASTHMA/SOB Verified 07/10/24 22:16
levofloxacin (From Levaquin Allergy Hives Verified 07/10/24 22:16
Leva-Carlos)
Penicillins Allergy Shortness Verified 07/10/24 22:16
of Breath
piperacillin Allergy Anaphylaxis, Verified 07/10/24 22:16
acute
hypoxemic
resp f,
hypotensitching
01/25/24
Sulfa (Sulfonamide Allergy Hives Verified 07/10/24 22:16
Antibiotics)
vancomycin (Vancomycin) Allergy Rash/red Verified 07/10/24 22:16
tino
syndrome
�Medication �Instructions �Recorded �Confirmed �Type
albuterol sulfate 90 mcg/actuation 2 puff inhalation R Q4HPRN PRN 09/27/19 11/26/24 History
aerosol inhaler sob/wheezing
atorvastatin 40 mg tablet 40 mg PO HS High cholesterol 04/23/21 11/26/24 History
fenofibrate nanocrystallized 48 mg 48 mg PO HS High cholesterol 07/13/21 11/26/24 History
tablet
montelukast 10 mg tablet 10 mg PO DAILY Allergies 11/30/21 11/26/24 History
pantoprazole 40 mg tablet,delayed 40 mg PO DAILY Gastrointestinal 11/30/21 11/26/24 History
release issue
sertraline 50 mg tablet 50 mg PO HS Depression 11/30/21 11/26/24 History
digoxin 125 mcg (0.125 mg) tablet 125 mcg PO DAILY Heart 08/22/23 11/26/24 History
Disease/Condition
levothyroxine 125 mcg tablet 125 mcg PO DAILY Thyroid 08/22/23 11/26/24 History
(Synthroid)
spironolactone 25 mg tablet 25 mg PO DAILY Heart Failure 08/22/23 11/26/24 History
verapamil 240 mg 24 hr 240 mg PO DAILY Blood Pressure 11/04/23 11/26/24 History
capsule,extended release
metoprolol succinate 25 mg 25 mg PO DAILY #30 tabs 11/06/23 11/26/24 Rx
tablet,extended release 24 hr
aspirin 81 mg tablet,delayed 81 mg PO DAILY Blood Clot 06/17/24 11/26/24 History
release Prevention/Tx
metformin 500 mg tablet,extended 500 mg PO BID Diabetes 06/17/24 11/26/24 History
release 24 hr
allopurinol 300 mg tablet 300 mg PO DAILY Gout 09/07/24 11/26/24 History
prochlorperazine maleate 10 mg 10 mg PO BIDPRN PRN nausea 10/15/24 11/26/24 History
tablet (Compazine)
therapeutic multivitamin 1 tab PO DAILY Supplement 10/15/24 11/26/24 History
bumetanide 2 mg tablet 2 mg PO DAILY 11/24/24 11/26/24 History
gabapentin 300 mg capsule 300 mg PO HS 11/24/24 11/26/24 History
ondansetron 4 mg disintegrating 4 mg PO Q6H PRN nausea 11/26/24 11/26/24 History
tablet
Review of Systems
-
History Source: Patient
All other systems: Negative unless noted
Constitutional: Fatigue
EENT: No Symptoms
Respiratory: No Symptoms
Cardiac: No Symptoms
Abdomen/GI: No Symptoms
: No Symptoms
Musculoskeletal: No Symptoms
Skin: No Symptoms
Neurological: No Symptoms
Endocrine: No Symptoms
Hematologic/Lymphatic: No Symptoms
Physical Exam
Vital Signs
Temp Pulse Resp BP Pulse Ox
97.6 F 90 18 113/59 97
11/26/24 07:30 11/26/24 07:30 11/26/24 07:30 11/26/24 07:30 11/26/24 07:30
Lab Results
11/26/24 01:53
11/26/24 01:53
Physical Exam
General: Well Developed, Well Nourished and No Apparent Distress
HEENT: Normocephalic and Moist Mucous Membranes
Respiratory: Clear
Cardiac: S1/S2, Irregular Rhythm and Peripheral Edema (chronic lymphedema)
Breast: Deferred by me
GI: Soft, Non Tender, Non Distended and Normal Bowel Sounds
Rectal: Deferred by Provider
Genito-urinary: No Costovertebral Tender
Musculoskeletal: No Cyanosis
Skin: Warm and Dry
Neuro: AO x 3
Hematologic/Lymphatic: No Lymphadenopathy
Psych: Calm
Impression / Plan
-
I/P: 74F with HFpEF, permanent atrial fibrillation (Watchman), CAD with prior PCI, mitral regurgitation, tricuspid regurgitation, TIA, PAD, carotid stenosis, NIDDM, hypertension, hypercholesterolemia, and non-Hodgkin's lymphoma currently receiving
chemotherapy presented with hypotension.
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
Hypotension
- Asymptomatic
- No SBP < 90mmHg since arrival
- Limited TTE to rule out pericardial effusion (R/T R-CHOP therapy)
- Decrease verapamil from 240 mg to 180 mg daily
- Decree spironolactone from 25 mg to 12.5 mg daily
HFmrEF (EF 50%), chronic
- She does not appear to be in acute/decompensated HF, will give one dose of intravenous Bumex as she missed two doses & receveived IV fluid
- LVEF 50%, dilated RV with reduced RV function, and moderate MR/TR (PASP 63 mmHg) on echocardiogram, follow up echo ordered
- She is on verapamil, may need to transition if LVEF worsens
- GDMT as tolerated:
-NILAY/ARB/ARNI: BP will not support
-SGLT2 inhibitor: None due to fungal infections & UTIs
-Aldosterone agonist: Spironolactone 25mg, decrease to 12.5mg with hypotension
-Beta yash: metoprolol succinate 25mg daily
-Isosorbide/Hydralazine:�Not indicated
-ICD: Not indicated
- Heart failure education
- Continue to trend daily weight, I/O - please obtain standing scale weight
Chronic hypoxic respiratory failure, on home oxygen
Atrial fibrillation, permanent
- No plans to restore sinus rhythm, rate controlled on metoprolol succinate, digoxin, and verapamil
- S/p ablation with Dr. Farley in 2021 & PVI 2016
- Anticoagulation: S/p Watchman (08/2023) with ASA
CAD
- Denies any current anginal symptoms.
- Continue current medical therapy (ASA, statin)
- PCI 1996
Non-Hodgkin's lymphoma
- Completed 4 cycles of mini R�CHOP chemotherapy (plan is for 6 total cycles)
- PET showed partial response
- Managed by Dr. Mejía
Mitral regurgitation, moderate
Tricuspid regurgitation, moderate
PAD with nonhealing wound
Lymphedema, bilateral lower extremity, chronic
Carotid stenosis, progressed, considering surgical evaluation, follows with Dr. Joy
Prior TIA
Meningioma resection and craniotomy ([facility], 2022)
NIDDM, per primary
Obesity, BMI > 40, she would benefit from weight loss
Data Reviewed
-
EKG: Report Reviewed by me (Atrial fibrillation, RBBB, rate 83)
Radiology: Image Personally Visualized and interpreted
Medical Tests (Nuc Med, Echo etc): Report Reviewed by me
Labs: Labs Reviewed by me
Old Records: Reviewed
[2024-11-26] MEDS: SINGULAIR 10 MG PO (09:36)
[2024-11-26] MEDS: PROTONIX 40 MG PO (09:36)
[2024-11-26] MEDS: SYNTHROID 125 MCG PO (09:36)
[2024-11-26] MEDS: GLUCOPHAGE XR EXTENDED RELEASE 500 MG PO ×2 (09:36→16:01)
[2024-11-26] MEDS: ASPIR LOW (ENTERIC COATED) 81 MG PO (09:37)
[2024-11-26] MEDS: ZYLOPRIM 300 MG PO (09:37)
[2024-11-26] MEDS: TOPROL XL 25 MG PO (09:37)
[2024-11-26] MEDS: BUMEX 2 MG IV (09:38)
--- NOTE | 2024-11-26 09:56 | CM ---
Addendum entered by Nargis Beckman RN 11/26/24 10:21:
[facility] FAX #: [phone]. Referral sent in Care Port.
Original Note:
Reviewed the chart notes and spoke with the patient at the bedside. The patient is admitted under observation status. The CLOUD letter was provided and explained to the patient. The patient had no questions with regards to the letter.
The patient resides with son in a two story home with one step to enter. The patient has a rolling walker, wheelchair, stairglide, and home O2. Patient did not know name of O2 provider. The patient is current with [facility] . The patient has a
private aide four times weekly from 8a-3p. Per aide, patient is rarely alone. The patient has been to [facility] and [facility]. The patient confirmed her [facility] of choice [facility]. CM continues to be available to patient/family and
is monitoring medical plan for needs at discharge.
Plan: Discharge plans will depend on the patient's progress.
[2024-11-26 11:38] LABS: Glucose - Point of Care 187 mg/dl (70-99)
--- NOTE | 2024-11-26 12:54 | W.PN.UPDATE ---
Update Note
Progress Note Update
Nonbillable note
1. Hypotension -hold patient home dose of Aldactone/verapamil. Can be continued on metoprolol for timing. Blood pressure is improved. Continue monitoring
2. Leukocytosis -patient have got on round of chemotherapy and post chemo had G-CSF inj , TWBC already trending down, no clear infection source, continue monitoring off abx
3. Permanent atrial fibrillation status post Watchman device -continue metoprolol/digoxin. Check digoxin level
4. Type 2 diabetes mellitus -patient requesting liberalization of carbs in the diet. Change to 2200 ADA diet. Maintained on insulin sliding scale/Lantus
5. Acute hypoxic resp insufficiency -patient is hypotensive/tachycardia not on anticoagulation with history of malignancy question of potential PE. Will do CT chest PE. Chest x-ray looks relatively clear and lung examination is benign. Potential
differential of mild pulmonary congestion as well, already on diuretics.
[2024-11-26] MEDS: CALAN EXTENDED RELEASE 180 MG PO (12:55)
[2024-11-26] MEDS: LANOXIN 125 MCG PO (12:55)
--- NOTE | 2024-11-26 15:11 | WOUNDNOTE ---
RIGHT LATERAL FOREARM
--- NOTE | 2024-11-26 15:12 | WOUNDNOTE ---
BILATERAL LOWER LEGS
--- NOTE | 2024-11-26 15:15 | WOUNDNOTE ---
BON RN note: Patient admitted with hypotension.
See H&P for complete history. Patient lives with family at home. She is followed by Dr. Galarza for her heel ulcer.
PMH: From H+P 'RF (2 L), COPD, HFpEF/RV failure, permanent AF s/p watchman, CAD s/p PCI, valvular heart disease, carotid stenosis, NIDDM, HTN, HLD, NHL on chemotherapy, PAD, H/O TIA, H/O meningioma resection'. She has a history of chronic L heel
ulcer, R heel ulcer, lymphedema, obesity.
Wound Location and type/assessment: Patient known to service, last seen 10/16/24 for PI's on heels. Today R heel is healed, has dry intact callus. L heel with healing stage 4 PI, smaller compared to last admission with clean pink base. Legs with
chronic lymphedema, patient reports she uses Tubigrip at home. Turned with assist of nurse , has linear skin breakdown on gluteal cleft, suspect moisture associated. L elbow and R arm with small skin tears.
Appetite: good.
Pressure redistribution devices in place: Centrella air bed, Pillow under calves. Patient requested that her family bring in her TruVue lite boots from home. Air chair cushion in use under heels. Nurse aware to put on boots when arrives.
Plan: Sacral Silicone border foam applied to sacrum and gluteal cleft. R heel applied adhesive foam. L heel applied adaptic, abd pad and kerlix. Arm skin tears, adaptic and silicone foam applied. Will order Tubigrip size G, called [facility] for supply and
nurse to apply. Instructed patient pressure injury prevention measures.
Will confirm orders with hospitalist, Update care plan and follow as needed.
Patient to follow up with Dr. Galarza.
[2024-11-26 16:59] LABS: Glucose - Point of Care 267 mg/dl (70-99)
[2024-11-26] MEDS: LOVENOX 40 MG SC (17:44)
[2024-11-26] MEDS: LIPITOR 40 MG PO (21:26)
[2024-11-26] MEDS: ZOLOFT 50 MG PO (21:26)
[2024-11-26] MEDS: NEURONTIN 300 MG PO (21:26)
[2024-11-26] MEDS: TRICOR 48 MG PO (21:26)
[2024-11-26 21:40] LABS: Glucose - Point of Care 231 mg/dl (70-99)
--- NOTE | 2024-11-26 23:01 | PTCARENOTE ---
Pt refusing to take 2000 dose of bumex bc she does not have a purwick in place. educated the pt on policy of limiting purwick use bc risk of infection. Also educated Pt on importance of taking this medication for chf /edema control. Pt continuing to
refuse unless she can have the purwick.
[2024-11-27 03:00] VITALS: BP 105/55
[2024-11-27] MEDS: SYNTHROID 125 MCG PO (05:28)
[2024-11-27 06:00] VITALS: BMI 43.4
[2024-11-27 06:38] LABS: Blood Urea Nitrogen 27 mg/dl (7-17); Calcium 9.1 mg/dl (8.4-10.2); Carbon Dioxide 30 mmol/L (22-30); Chloride 109 mmol/L (98-107); Digoxin 1.2 ng/ml (0.8-2.0); Estimated Creatinine Clearance 82 ml/min; Glucose 143 mg/dl (70-99); Magnesium 1.8 mg/dl (1.6-2.3); Potassium 3.9 mmol/L (3.5-5.1); Sodium 142 mmol/L (135-145); eGFR > 60.00
[2024-11-27 07:06] LABS: Cortisol, Random 9.4 ug/dl; TSH Reflex To Free T4 1.24 uIU/ml (0.47-4.68)
[2024-11-27 07:15] LABS: Glucose - Point of Care 155 mg/dl (70-99)
[2024-11-27 07:25] VITALS: BP 107/63
[2024-11-27] MEDS: TOPROL XL 25 MG PO (08:39)
[2024-11-27] MEDS: GLUCOPHAGE XR EXTENDED RELEASE 500 MG PO (08:39)
[2024-11-27] MEDS: NOVOLOG FLEXPEN-MODERATE RESISTANCE 1 UNITS SC (08:39)
[2024-11-27] MEDS: CALAN EXTENDED RELEASE 180 MG PO (08:39)
[2024-11-27] MEDS: ALDACTONE 12.5 MG PO (08:40)
[2024-11-27] MEDS: ASPIR LOW (ENTERIC COATED) 81 MG PO (08:41)
[2024-11-27] MEDS: ZYLOPRIM 300 MG PO (08:42)
[2024-11-27] MEDS: PROTONIX 40 MG PO (08:42)
[2024-11-27] MEDS: SINGULAIR 10 MG PO (08:42)
--- NOTE | 2024-11-27 10:46 | CM ---
Addendum entered by Manda Reza 11/27/24 12:15:
Please fax to [phone] clinical information CM will confirm transportation and CM will review with patient need for transportation.
Original Note:
Patient seen at bedside on . Patient with aide from [employer]. Per patient aides are present 4 days weekly for 6 hours a day when family is at work. Patient with no concerns at this time. Patient home O2 company unclear, aide is checking
with family for confirmation. Patient continues OBS/CLOUD and form completed per chart review 11/26/24. CM will continue to follow for discharge planning needs.
Plan; home with family and [place] [employer] home health/aides.
--- NOTE | 2024-11-27 11:03 | W.PN.CD ---
Today's Communication / Plan
-
Decreased verapamil from 240 mg to 180 mg daily
Decreased spironolactone from 25 mg to 12.5 mg daily
-stable on this regimen
discharge planning
Impression / Plan
-
I/P: 74F with HFpEF, permanent atrial fibrillation (Watchman), CAD with prior PCI, mitral regurgitation, tricuspid regurgitation, TIA, PAD, carotid stenosis, NIDDM, hypertension, hypercholesterolemia, and non-Hodgkin's lymphoma currently receiving
chemotherapy presented with hypotension.
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
Hypotension
- Asymptomatic
- No SBP < 90mmHg since arrival
- Limited TTE to rule out pericardial effusion (R/T R-CHOP therapy): no effusion
- Decreased verapamil from 240 mg to 180 mg daily
- Decreased spironolactone from 25 mg to 12.5 mg daily
-stable on this regimen
HFmrEF (EF 50%), chronic
- She does not appear to be in acute/decompensated HF, will give one dose of intravenous Bumex as she missed two doses & receveived IV fluid
- LVEF 50%, dilated RV with reduced RV function, and moderate MR/TR (PASP 63 mmHg) on echocardiogram, follow up echo ordered
- She is on verapamil, may need to transition if LVEF worsens
- GDMT as tolerated:
-NILAY/ARB/ARNI: BP will not support
-SGLT2 inhibitor: None due to fungal infections & UTIs
-Aldosterone agonist: Spironolactone 25mg, decreased to 12.5mg with hypotension
-Beta yash: metoprolol succinate 25mg daily
-Isosorbide/Hydralazine:�Not indicated
-ICD: Not indicated
Chronic hypoxic respiratory failure, on home oxygen
Atrial fibrillation, permanent
- No plans to restore sinus rhythm, rate controlled on metoprolol succinate, digoxin, and verapamil
- S/p ablation with Dr. Farley in 2021 & PVI 2017
- Anticoagulation: S/p Watchman (08/2023) with ASA
CAD
- Denies any current anginal symptoms.
- Continue current medical therapy (ASA, statin)
- PCI 1996
Non-Hodgkin's lymphoma
- Completed 4 cycles of mini R�CHOP chemotherapy (plan is for 6 total cycles)
- PET showed partial response
- Managed by Dr. Mejía
Mitral regurgitation, moderate
Tricuspid regurgitation, moderate
PAD with nonhealing wound
Lymphedema, bilateral lower extremity, chronic
Carotid stenosis, progressed, considering surgical evaluation, follows with Dr. Joy
Prior TIA
Meningioma resection and cr[facility]otomy ([facility]20[facility])
NIDDM, per primary
Obesity, BMI > 40, she would benefit from weight loss
Physical Exam
Vital Signs/Labs
Vital Signs
Temp Pulse Resp BP Pulse Ox
97.7 F 96 16 107/63 96
11/27/24 07:25 11/27/24 07:25 11/27/24 07:25 11/27/24 07:25 11/27/24 07:25
11/26/24 11/27/24 11/28/24
06:59 06:59 06:59
Actual Weight 111 kg
11/26/24 01:53
11/27/24 05:50
Magnesium 1.8 mg/dl (1.6-2.3) 11/27/24 05:50
Digoxin 1.2 ng/ml (0.8-2.0) 11/27/24 05:50
Physical Exam
Constitutional: No acute distress and Comfortable
EENT: Moist mucous membranes
Cardiovascular: Rhythm/rate is irregular, Pedal edema present, JVD present and Systolic murmur present
Respiratory: Respiratory effort normal and Lungs clear to auscul.
Neuro/Psych: AO x 3
Data Reviewed
-
Date of Service: November 27, 2024
EKG: Other (Tele: A fib 80s-90s)
Labs: Labs Reviewed by me
[2024-11-27 11:15] VITALS: BP 111/62
[2024-11-27 11:52] LABS: Glucose - Point of Care 229 mg/dl (70-99)
--- NOTE | 2024-11-27 13:21 | W.PN.HOSP.TC ---
Today's Communication/Plan
-
d/c home
Assessment / Plan
Assessment / Plan
1. Hypotension -patient blood pressure is improved. No other secondary explanation for patient persistent hypotension which is patient also asymptomatic. Cardiology recommended patient Aldactone and verapamil dose to be decreased
2. Leukocytosis -patient have got on round of chemotherapy and post chemo had G-CSF inj , TWBC already trending down, no clear infection source, continue monitoring off abx
3. Permanent atrial fibrillation status post Watchman device -continue metoprolol/digoxin. Dig level wnl.
4. Type 2 diabetes mellitus -patient requesting liberalization of carbs in the diet. Change to 2199 ADA diet. Maintained on insulin sliding scale/Lantus
5. Acute hypoxic resp insufficiency -CT chest PE ruled out any VTE. Small effusions. Patient home oxygen equipment and continue to use as needed at discharge. Currently on 2 L of nasal cannula
6. Chronic diastolic HF -patient have declined Bumex due to inconvenience of getting out of bed. Requesting pure wick which is not per hospital protocol and has been declined.
Per RN patient have not shown that she is able to transfer out of bed on chair/commode. PT evaluation recommended although patient have declined. Discussed the issue with family who is okay with patient leaving without physical therapy evaluation
More than 30 minutes spent in discharge including
Final examination of the patient
Summarizing hospital stay
Instructions for continuing care to all relevant caregivers
Preparation of discharge records, prescriptions, and referral forms
Total time spent (in minutes): 38 mins
Anticipated Discharge: Today
Subjective/Interval History
-
Date of Service: November 27, 2024
Subjectively feeling better
No new issues overnight
Remains on oxygen 2 L through nasal canula
Objective Data
-
Labs:
Laboratory Results
11/27/24
05:50
Sodium 142
Potassium 3.9
Chloride 109 H
Carbon Dioxide 30
BUN 27 H
Creatinine 0.7
Glucose 143 H
Calcium 9.1
Vital Signs:
Vital Signs
Temp Pulse Resp BP Pulse Ox
97.8 F 71 16 111/62 94
11/27/24 11:15 11/27/24 11:15 11/27/24 11:15 11/27/24 11:15 11/27/24 11:15
I&O
11/26/24 11/27/24 11/28/24
06:59 06:59 06:59
Intake Total 380 / 380 180 / 180
Output Total 700 / 700
Balance -320 / -320 180 / 180
Review of Systems
-
Respiratory: Reports No Symptoms
Cardiac: Reports No Symptoms
Abdomen/GI: Reports No Symptoms
Physical Exam
-
HEENT: Oxygen
Respiratory: Clear to Auscultation
Neuro: Awake, Alert, Oriented and AO x 3
Psych: Calm
[2024-11-27] MEDS: NOVOLOG FLEXPEN-MODERATE RESISTANCE 3 UNITS SC (13:22)
[2024-11-27] MEDS: LANOXIN 125 MCG PO (13:28)
--- NOTE | 2024-11-28 15:44 | W.DCSUMMARY ---
Discharge Summary
Discharge Data
Date of Admission: 11/26/24
Date of Discharge: 11/27/24
-
Pending Results: No
Hospital Course
Discharging Physician : Dr Mahendra Caputo
Disposition : Home
Primary care physician : Dr Betsy Heard
Principal Discharge diagnosis :
Hypotension, presumed medication related
Leukocytosis from G-CSF injection
Acute hypoxic respiratory insufficiency
Chronic Discharge diagnosis :
Permanent atrial fibrillation
Non-Hodgkin's lymphoma
History of carotid stenosis
Peripheral arterial disease
Mitral regurgitation
Type 2 diabetes mellitus
Chronic diastolic congestive heart failure
Gout
Hyperlipidemia
Morbid obesity
Hospital Course :
Patient is a 74-year-old female with above-mentioned past medical history was sent to ER after noted to having low blood pressure at her primary care physician office. Patient was not voicing any ongoing complaints of lightheadedness/dizziness.
Patient was seen day before in the ER for possible seizure where patient was unresponsive for 10 seconds, unclear if patient had brief syncope at that point. Cardiology was involved in care as patient on multiple cardiac medication which likely
lowers the blood pressure. Patient dose of Aldactone/verapamil was held and after improvement in blood pressure was resumed at half dose.
Patient also noted to having some hypoxia chest x-ray was relatively clear. With patient history of malignancy a CT chest PE was done and did not show any VTE. Patient had severe leukocytosis although no other signs suggestive of infection. This
was deemed likely secondary to post chemo G-CSF injection. WBC were trending down without any further intervention. Post medical stabilization patient was cleared to be discharged home with home care.
Important imaging findings :
None
Procedure findings :
None
Discharge Plan
-
Patient Disposition: Home with Home Care
Discharge Diagnosis/Procedures: Hypotension, Hypoxic resp insufficiency
Condition: Fair
Diet: Low Sodium and Diabetic, Carb Controlled
Activity: With assistance and As tolerated
Driving Restrictions: No driving
Bathing Restrictions: OK to Shower
Activity Restrictions/Additional Instructions:
Wound Care Instructions
L heel: clean with soap and water, skin prep periwound, gauze and kerlix daily.
Arm skin tears: clean with saline, adaptic and silicone foam change q 2-3 days and prn drainage.
R heel: skin prep and adhesive foam change q 3 days and prn drainage.
Gluteal cleft: clean with soap and water, barrier cream or sacral silicone foam, change q 3 days and prn soilage.
Follow up with [facility]
Referrals:
Betsy Heard NP [Family Provider, Internal Medicine] - in one week
Ac Jonas MD [Active, Cardiology] - 12/13/24 10:20 am
Referral Note: Appt currently scheduled at [facility], but there is currently construction ongoing, and may get moved to [facility]. please await confirmation message week of appt
Prescriptions:
New
verapamil 180 mg Tablet Extended Release
180 mg PO DAILY Qty: 30 2RF
spironolactone 25 mg Tablet
12.5 mg PO DAILY Qty: 30 1RF
Continued
albuterol sulfate 1 PUFF HFA aerosol inhaler
2 puff inhalation R Q4HPRN PRN (Reason: sob/wheezing)
atorvastatin 40 MG tablet
40 mg PO HS
fenofibrate nanocrystallized 48 MG tablet
48 mg PO HS
pantoprazole 40 MG tablet,delayed release (DR/EC)
40 mg PO DAILY
sertraline 50 MG tablet
50 mg PO HS
montelukast 10 MG tablet
10 mg PO DAILY
levothyroxine [Synthroid] 125 mcg Tablet
125 mcg PO DAILY
digoxin 125 mcg (0.125 mg) Tablet
125 mcg PO DAILY
metoprolol succinate 25 mg Tablet Extended Release 24 Hr
25 mg PO DAILY Qty: 30 0RF
metformin 500 mg Tablet Extended Release 24 Hr
500 mg PO BID
aspirin 81 mg tablet,delayed release (DR/EC)
81 mg PO DAILY
allopurinol 300 mg Tablet
300 mg PO DAILY
therapeutic multivitamin Tablet
1 tab PO DAILY
prochlorperazine maleate [Compazine] 10 mg Tablet
10 mg PO BIDPRN PRN (Reason: nausea)
gabapentin 300 mg Capsule
300 mg PO HS
ondansetron 4 mg Tablet,Disintegrating
4 mg PO Q6H PRN (Reason: nausea)
bumetanide 2 mg tablet
2 mg PO DAILY Qty: 0 0RF
Discontinued
spironolactone 25 mg Tablet
25 mg PO DAILY
verapamil 240 mg capsule,ext rel. pellets 24 hr
240 mg PO DAILY
Discharge Orders:
Discharge Patient (As Directed); Ordered 11/27/24
Ordered By: Mahendra Caputo
Discharge Date and Time
Discharge Date/Time: 11/27/24 14:31
Print Language: [id number]
== END 2024-11-27 14:31 | disposition home health service (06) ==
LOC: 2 SOUTH 05:06
PROVIDERS: Physician Assistant; ADMITTING PHYSICIAN Internal Medicine; ATTENDING PHYSICIAN Hospitalist; EMERGENCY PHYSICIAN Emergency Medicine; FAMILY PHYSICIAN Internal Medicine; OTHER PHYSICIAN Internal Medicine
DX: I95.9 Hypotension, unspecified (principal); D72.829 Elevated white blood cell count, unspecified; I48.21 Permanent atrial fibrillation; E11.42 Type 2 diabetes mellitus with diabetic polyneuropathy; E11.51 Type 2 diabetes mellitus with diabetic peripheral angiopathy without gangrene; I11.0 Hypertensive heart disease with heart failure; I50.32 Chronic diastolic (congestive) heart failure; I25.10 Atherosclerotic heart disease of native coronary artery without angina pectoris; I89.0 Lymphedema, not elsewhere classified; J96.11 Chronic respiratory failure with hypoxia; J44.9 Chronic obstructive pulmonary disease, unspecified; E53.9 Vitamin B deficiency, unspecified; F32.9 Major depressive disorder, single episode, unspecified; D64.9 Anemia, unspecified; E66.01 Morbid (severe) obesity due to excess calories; E78.00 Pure hypercholesterolemia, unspecified; I08.1 Rheumatic disorders of both mitral and tricuspid valves; E03.9 Hypothyroidism, unspecified; I45.10 Unspecified right bundle-branch block; J98.4 Other disorders of lung; I27.21 Secondary pulmonary arterial hypertension; G40.909 Epilepsy, unspecified, not intractable, without status epilepticus; I25.2 Old myocardial infarction; Z99.81 Dependence on supplemental oxygen; Z87.891 Personal history of nicotine dependence; Z82.49 Family history of ischemic heart disease and other diseases of the circulatory system; Z92.3 Personal history of irradiation; Z87.01 Personal history of pneumonia (recurrent); Z87.442 Personal history of urinary calculi; Z90.49 Acquired absence of other specified parts of digestive tract; Z95.5 Presence of coronary angioplasty implant and graft; Z96.612 Presence of left artificial shoulder joint; Z86.73 Personal history of transient ischemic attack (TIA), and cerebral infarction without residual deficits; Z85.72 Personal history of non-Hodgkin lymphomas; Z88.1 Allergy status to other antibiotic agents; Z88.0 Allergy status to penicillin; Z88.2 Allergy status to sulfonamides; Z88.8 Allergy status to other drugs, medicaments and biological substances; Z79.899 Other long term (current) drug therapy; Z79.51 Long term (current) use of inhaled steroids; Z79.890 Hormone replacement therapy; Z68.41 Body mass index [BMI] 40.0-44.9, adult; Z79.84 Long term (current) use of oral hypoglycemic drugs; Z92.21 Personal history of antineoplastic chemotherapy; Z86.16 Personal history of COVID-19; Z85.828 Personal history of other malignant neoplasm of skin
CPT/HCPCS: 93308; 71046; 71275; 80048; 80053; 80162; 82533; 82962; 83735; 84443; 85025; 93005; 93321; 93325; 99285; G0378; Q9967

== ENCOUNTER → 2024-12-09 09:59 | Outpatient (REF) | payer MEDICARE, SELFPAY ==
[2024-12-09 10:51] LABS: Hematocrit 29.8 % (37.0-47.0); Hemoglobin 9.1 g/dL (12.0-16.0); Mean Corp Hgb Conc. 30.5 g/dL (33.0-37.0); Mean Corpuscular Volume 87.9 fL (81.0-99.0); Nucleated Red Blood Cells % 0.3 %; Platelet Count 227 10^3/uL (130-400); Red Cell Dist. Width 20.7 % (11.5-14.5)
[2024-12-09 11:25] LABS: ALT (SGPT) < 10 U/L (0-35); AST (SGOT) 14 U/L (14-36); Albumin 3.6 g/dl (3.5-5.0); Blood Urea Nitrogen 22 mg/dl (7-17); Calcium 8.9 mg/dl (8.4-10.2); Carbon Dioxide 27 mmol/L (22-30); Chloride 109 mmol/L (98-107); Glucose 158 mg/dl (70-99); Potassium 3.7 mmol/L (3.5-5.1); Sodium 143 mmol/L (135-145); Total Protein 6.1 g/dl (6.3-8.2); eGFR > 60.00
[2024-12-09 11:33] LABS: Alkaline Phosphatase 96 U/L (38-126)
== END ==
LOC: REG 09:59
PROVIDERS: ATTENDING PHYSICIAN Internal Medicine Hematology & Oncology; FAMILY PHYSICIAN Internal Medicine
DX: R19.04 Left lower quadrant abdominal swelling, mass and lump (principal); I89.0 Lymphedema, not elsewhere classified; D48.19 Other specified neoplasm of uncertain behavior of connective and other soft tissue; I65.21 Occlusion and stenosis of right carotid artery; L03.90 Cellulitis, unspecified; Z86.73 Personal history of transient ischemic attack (TIA), and cerebral infarction without residual deficits; C83.30 Diffuse large B-cell lymphoma, unspecified site
CPT/HCPCS: 36415; 80053; 85025

== ENCOUNTER → 2024-12-13 11:48 | Outpatient (REF) | payer MEDICARE, SELFPAY ==
[2024-12-13 13:10] LABS: Hematocrit 31.7 % (37.0-47.0); Hemoglobin 9.5 g/dL (12.0-16.0); Mean Corp Hgb Conc. 30.0 g/dL (33.0-37.0); Mean Corpuscular Volume 89.8 fL (81.0-99.0); Nucleated Red Blood Cells % 0 %; Platelet Count 243 10^3/uL (130-400); Red Cell Dist. Width 21.4 % (11.5-14.5)
[2024-12-13 13:42] LABS: ALT (SGPT) < 10 U/L (0-35); AST (SGOT) 15 U/L (14-36); Albumin 3.9 g/dl (3.5-5.0); Alkaline Phosphatase 91 U/L (38-126); Blood Urea Nitrogen 21 mg/dl (7-17); Calcium 8.6 mg/dl (8.4-10.2); Carbon Dioxide 27 mmol/L (22-30); Chloride 107 mmol/L (98-107); Glucose 164 mg/dl (70-99); Potassium 3.7 mmol/L (3.5-5.1); Sodium 144 mmol/L (135-145); Total Protein 6.2 g/dl (6.3-8.2); eGFR > 60.00
== END ==
LOC: REG 11:48
PROVIDERS: ATTENDING PHYSICIAN Internal Medicine Hematology & Oncology; FAMILY PHYSICIAN Internal Medicine; REFERRING PHYSICIAN Nurse Practitioner Primary Care
DX: I89.0 Lymphedema, not elsewhere classified (principal); C83.30 Diffuse large B-cell lymphoma, unspecified site; Z86.73 Personal history of transient ischemic attack (TIA), and cerebral infarction without residual deficits
CPT/HCPCS: 36415; 80053; 85025; 87324; 87449

== ENCOUNTER → 2025-01-04 10:32 | Outpatient (REF) | payer MEDICARE, SELFPAY ==
[2025-01-04 12:31] LABS: Hematocrit 29.6 % (37.0-47.0); Hemoglobin 8.9 g/dL (12.0-16.0); Mean Corp Hgb Conc. 30.1 g/dL (33.0-37.0); Mean Corpuscular Volume 89.4 fL (81.0-99.0); Nucleated Red Blood Cells % 0.2 %; Platelet Count 266 10^3/uL (130-400); Red Cell Dist. Width 20.5 % (11.5-14.5)
[2025-01-04 12:53] LABS: ALT (SGPT) < 10 U/L (0-35); AST (SGOT) 14 U/L (14-36); Albumin 3.7 g/dl (3.5-5.0); Alkaline Phosphatase 73 U/L (38-126); Blood Urea Nitrogen 27 mg/dl (7-17); Calcium 8.3 mg/dl (8.4-10.2); Carbon Dioxide 31 mmol/L (22-30); Chloride 103 mmol/L (98-107); Glucose 102 mg/dl (70-99); Potassium 3.9 mmol/L (3.5-5.1); Sodium 142 mmol/L (135-145); Total Protein 6.1 g/dl (6.3-8.2); eGFR > 60.00
== END ==
LOC: REG 10:32
PROVIDERS: ATTENDING PHYSICIAN Internal Medicine Hematology & Oncology
DX: R19.04 Left lower quadrant abdominal swelling, mass and lump (principal); I89.0 Lymphedema, not elsewhere classified; D48.19 Other specified neoplasm of uncertain behavior of connective and other soft tissue; I65.21 Occlusion and stenosis of right carotid artery; L03.90 Cellulitis, unspecified; Z86.73 Personal history of transient ischemic attack (TIA), and cerebral infarction without residual deficits; C83.30 Diffuse large B-cell lymphoma, unspecified site
CPT/HCPCS: 36415; 80053; 85025

== ENCOUNTER 2025-01-16 12:36 | Emergency (ER) | payer MEDICARE, SELFPAY ==
[2025-01-16] VITALS (19 sets, daily range): BP systolic 89–121; BP diastolic 51–86; BMI 42.2
--- NOTE | 2025-01-16 15:03 | EDRN ---
pt was taking to ct scan from waiting room via wheelchair. ct scan called for assistance.
. pt would not get out of the wheelchair with four assist. pt is morbidlity obese and lives at home and ambulates with wheelchair and walker at home. pt was getting upset because she wanted us to lift her. pt was asked again how does she move at
home. pt sts she uses a walker. pt was given a wheelchair and pt was able to move herself and sat on the ct scan table for the ct scan. pt was able to move herself with a walker back to the stretcher.
--- NOTE | 2025-01-16 15:29 | ED.MUSCINJ ---
HPI-Injury
General
Chief Complaint: Fall
Source: patient
Exam Limitations: none
Time Seen by Provider: 01/16/25 15:19
History of Present Illness-Injury
Initial Injury comments:
74-year-old female presents after a fall. She got somewhat lightheaded and fell and hit the back of her head against the commode. She has a history of hypertension. She takes midodrine. She did not take it this morning. She was slightly
lightheaded when she fell. She is on an aspirin but no other blood thinners. She notes pain to the back of her head but denies neck pain. No loss of conscious. No weakness to the arms or legs.
Past History
Past History
ED Past Medical History: Arrthythmia (Atrial fibrillation), Asthma, CAD, Cancer (Skin, meningioma grade 2 with radiation therapy and craniotomy), CHF, COPD, HTN, Hypercholesterolemia, NIDDM, MS, Hypothyroidism, Psychiatric (Major depression), Other
(PNA, Cellulitis, Chronic Lymphedema, bilateral heel ulcerations, osteomyelitis of the left heel, morbid obesity) and Other (Sepsis, peripheral neuropathy, anemia, rosacea, COVID 19, seizure disorder, pulmonary artery hypertension, nephrolithiasis,
B complex deficiency, prior acute respiratory failure); Negative Renal failure (Stage IIIa)
ED Past Surgical History: Brain (Right frontal craniotomy for meningioma 2022), Cardiac (cardioversion, Stents X 2, Watchman device), Cholecystectomy (1982), Orthopedic (Left reverse shoulder arthroplasty December 2023), Urological (Bladder repair,
kidney stone extraction) and Other (Right femoral artery cannulation January 2024, Mohs surgery forehead 2021)
Social History
Tobacco: Former smoker
Alcohol: Daily (Vodka 1 large glass)
Drug: None
Personal:
Living: alone
Employment: Retired
Family History
Family History: Hypertension
Phy Exam
Physical Exam
Physical Exam:
General: Well-appearing female no acute respiratory distress
HEENT: Normocephalic hematoma noted to the posterior scalp pupils equal round reactive to light TMs normal
Musculoskeletal exam: Cervical spine is nontender. Good range of motion all extremities.
Neurologic exam: Alert and oriented no slurred speech no facial asymmetry
Extremities: No cyanosis
Skin warm no rash
Heart: Regular rate and rhythm
Lungs: Clear no wheeze
Injury Course
Orders/Labs/Results
Orders:
Orders
01/16/25 13:04
CT Head W/o Iv Contrast Urgent
Comment:
Reason For Exam: fall, +hit head
01/16/25 13:31
CT Cervical Spine W/o Iv Contr Urgent
Comment:
Reason For Exam: fall
01/16/25 15:36
CR Chest - 2 Views Urgent
Comment:
Reason For Exam: low oxygen
01/16/25 16:27
Midodrine [ProAmatine] 2.5 mg PO NOW STA
MDM/Problems Addressed
Differential Diagnosis Includes:
Fall. She was lightheaded beforehand. She has known orthostatic hypotension and did not take her midodrine this morning. No preceding chest pain. CT of the head and cervical spine were ordered to evaluate for fracture or intracranial hemorrhage.
Blood pressure check in the room was 112/53
*Pulse Oximetry
SaO2: 96
Nasal Cannula flow liters per minute: 2
Oxygen Mode of Delivery: Room air
Patient hypoxic: no
*Critical Care Note
Total Time (30-74mins, 75-104mins- exclusive of procedures): Not Applicable
Update Note
Update Note:
CT of head and cervical spine negative. Patient reassured. No indication for admission.
ED Attending Note
-
Portions of this chart may have been created with voice recognition software.� Occasional wrong word or��sound alike� substitutions may have occurred due to the inherent limitations of voice recognition software.
Discharge Plan
Departure
Patient Disposition: Home (Routine Discharge)
Date of Disposition: 01/16/25
Time of Disposition: 19:31
Patient with high blood pressure during this ER visit?: No
Discharge Problem:
Fall
Instructions: Preventing falls in adults
Prescriptions:
No Action
albuterol sulfate 1 PUFF HFA aerosol inhaler
2 puff inhalation R Q4HPRN PRN (Reason: sob/wheezing)
atorvastatin 40 MG tablet
40 mg PO HS
fenofibrate nanocrystallized 48 MG tablet
48 mg PO HS
pantoprazole 40 MG tablet,delayed release (DR/EC)
40 mg PO DAILY
sertraline 50 MG tablet
50 mg PO HS
montelukast 10 MG tablet
10 mg PO DAILY
levothyroxine [Synthroid] 125 mcg Tablet
125 mcg PO DAILY
digoxin 125 mcg (0.125 mg) Tablet
125 mcg PO DAILY
metoprolol succinate 25 mg Tablet Extended Release 24 Hr
25 mg PO DAILY Qty: 30 0RF
metformin 500 mg Tablet Extended Release 24 Hr
500 mg PO BID
aspirin 81 mg tablet,delayed release (DR/EC)
81 mg PO DAILY
allopurinol 300 mg Tablet
300 mg PO DAILY
therapeutic multivitamin Tablet
1 tab PO DAILY
prochlorperazine maleate [Compazine] 10 mg Tablet
10 mg PO BIDPRN PRN (Reason: nausea)
gabapentin 300 mg Capsule
300 mg PO HS
ondansetron 4 mg Tablet,Disintegrating
4 mg PO Q6H PRN (Reason: nausea)
verapamil 180 mg Tablet Extended Release
180 mg PO DAILY Qty: 30 2RF
spironolactone 25 mg Tablet
12.5 mg PO DAILY Qty: 30 1RF
bumetanide 2 mg tablet
2 mg PO DAILY Qty: 0 0RF
Referrals:
Betsy Heard NP [Family Provider, Internal Medicine]
Activity Restrictions/Additional Instructions:
Return here if worse. Continue to take your midodrine. Follow-up with your doctor
Interventions
Interventions:
*Risk Screen - Suicide Last Done: 01/16/25 13:03
*General Assessment Last Done: 01/16/25 15:30
*Neglect/Abuse Screening Last Done: 01/16/25 13:03
*ED- Fall Risk Assessment Last Done: 01/16/25 15:30
*ED COVID-19 Vaccine History Last Done: 01/16/25 15:30
ED-Musculoskeletal Assessment Last Done: 01/16/25 15:30
ED- Neurological Assessment Last Done: 01/16/25 15:30
ED-Skin Assessment Last Done: 01/16/25 15:30
Discharge Date and Time
Print Language: NORWEGIAN
== END 2025-01-16 20:50 | disposition home or self-care (01) ==
LOC: EMR 12:36
PROVIDERS: EMERGENCY PHYSICIAN Emergency Medicine; FAMILY PHYSICIAN Internal Medicine
DX: Z04.3 Encounter for examination and observation following other accident (principal); E11.42 Type 2 diabetes mellitus with diabetic polyneuropathy; I25.10 Atherosclerotic heart disease of native coronary artery without angina pectoris; I48.91 Unspecified atrial fibrillation; I11.0 Hypertensive heart disease with heart failure; I50.9 Heart failure, unspecified; I27.20 Pulmonary hypertension, unspecified; I95.1 Orthostatic hypotension; E78.00 Pure hypercholesterolemia, unspecified; I25.2 Old myocardial infarction; J44.89 Other specified chronic obstructive pulmonary disease; G40.909 Epilepsy, unspecified, not intractable, without status epilepticus; E66.01 Morbid (severe) obesity due to excess calories; Z68.41 Body mass index [BMI] 40.0-44.9, adult; E03.9 Hypothyroidism, unspecified; I89.0 Lymphedema, not elsewhere classified; F32.9 Major depressive disorder, single episode, unspecified; Z79.82 Long term (current) use of aspirin; Z79.84 Long term (current) use of oral hypoglycemic drugs; Z95.5 Presence of coronary angioplasty implant and graft; Z87.891 Personal history of nicotine dependence; Z85.828 Personal history of other malignant neoplasm of skin; Z86.16 Personal history of COVID-19; Z86.011 Personal history of benign neoplasm of the brain; Z82.49 Family history of ischemic heart disease and other diseases of the circulatory system
CPT/HCPCS: 99284; 70450; 71046; 72125

== ENCOUNTER → 2025-02-07 11:55 | Outpatient (REF) | payer MEDICARE, SELFPAY ==
[2025-02-07 11:38] LABS: Glucose 116 mg/dl (70-99)
== END ==
LOC: PET 11:55
PROVIDERS: ATTENDING PHYSICIAN Internal Medicine Hematology & Oncology; REFERRING PHYSICIAN Obstetrics & Gynecology Gynecologic Oncology
DX: C83.30 Diffuse large B-cell lymphoma, unspecified site (principal); I89.0 Lymphedema, not elsewhere classified
CPT/HCPCS: 36415; 82947

== ENCOUNTER → 2025-03-12 15:06 | Outpatient (REF) | payer MEDICARE, SELFPAY ==
[2025-03-12 16:50] LABS: Hematocrit 33.4 % (37.0-47.0); Hemoglobin 10.1 g/dL (12.0-16.0); Mean Corp Hgb Conc. 30.2 g/dL (33.0-37.0); Mean Corpuscular Volume 84.6 fL (81.0-99.0); Nucleated Red Blood Cells % 0 %; Platelet Count 259 10^3/uL (130-400); Red Cell Dist. Width 16.7 % (11.5-14.5)
[2025-03-12 17:17] LABS: ALT (SGPT) < 10 U/L (0-35); AST (SGOT) 14 U/L (14-36); Albumin 4.0 g/dl (3.5-5.0); Alkaline Phosphatase 84 U/L (38-126); Blood Urea Nitrogen 28 mg/dl (7-17); Calcium 9.3 mg/dl (8.4-10.2); Carbon Dioxide 31 mmol/L (22-30); Chloride 104 mmol/L (98-107); Glucose 217 mg/dl (70-99); Potassium 3.7 mmol/L (3.5-5.1); Sodium 141 mmol/L (135-145); Total Protein 6.6 g/dl (6.3-8.2); eGFR > 60.00
[2025-03-13 08:42] LABS: Glycohemoglobin (HgbA1c) 7.2 % (4.0-5.6)
== END ==
LOC: REG 15:06
PROVIDERS: ATTENDING PHYSICIAN Internal Medicine Hematology & Oncology; FAMILY PHYSICIAN Internal Medicine
DX: I48.0 Paroxysmal atrial fibrillation (principal); E11.69 Type 2 diabetes mellitus with other specified complication; I25.10 Atherosclerotic heart disease of native coronary artery without angina pectoris; I11.0 Hypertensive heart disease with heart failure; E11.22 Type 2 diabetes mellitus with diabetic chronic kidney disease; I89.0 Lymphedema, not elsewhere classified; C83.30 Diffuse large B-cell lymphoma, unspecified site; Z86.73 Personal history of transient ischemic attack (TIA), and cerebral infarction without residual deficits
CPT/HCPCS: 36415; 80053; 83036; 84443; 85025

== ENCOUNTER → 2025-03-21 11:23 | Outpatient (REF) | payer MEDICARE, SELFPAY | LOC: HWRAD 11:23 | PROVIDERS: ATTENDING PHYSICIAN Surgery Vascular Surgery; FAMILY PHYSICIAN Internal Medicine | DX: I65.23 Occlusion and stenosis of bilateral carotid arteries (principal) | CPT/HCPCS: 93880 ==

== ENCOUNTER 2025-04-04 22:00 | Inpatient (IN) | payer MEDICARE, SELFPAY ==
[2025-04-04] VITALS (9 sets, daily range): BP systolic 98–141; BP diastolic 48–78; BMI 44.5
--- NOTE | 2025-04-04 15:42 | ED.GENMED ---
History of Present Illness
General
Chief Complaint: Extremity Pain (non-traumatic)
Source: patient
Exam Limitations: none
Time Seen by Provider: 04/04/25 15:39
Nursing documentation reviewed up to this point in time: agreed with
History of Present Illness
History of Present Illness:
Note:
CHIEF COMPLAINT(S)
Left leg pain.
HISTORY OF PRESENT ILLNESS
The patient is a 74-year-old female presenting with severe pain in the left leg, described as excruciating, starting from the knee, extending down the calf, and reaching the ankle, ultimately spreading into the foot. The patient reports difficulty
walking due to the pain, which is beyond her usual lymphadenia. The pain has escalated to an unbearable level. The patient is receiving radiation therapy following chemotherapy for B-cell non-Hodgkin lymphoma. Per the patient, the current pain began
to intensify recently, despite chronic swelling in the leg. There is no history of recent trauma or falls. The patient has not been on any blood thinners, but she is taking aspirin. She also has a bandage on her foot from an existing ulcer. She
denies recent breathing difficulties but mentions regular oxygen use at night for chemotherapy-induced respiratory issues.
PAST MEDICAL AND SURGICAL HISTORY
The patient has a medical history significant for chronic atrial fibrillation. A Watchman device was placed previously to allow for discontinuation of anticoagulation therapy with rivaroxaban. Heart problems are noted, as well as lymphadenia and
ulcer on the foot.
CHRONIC MEDICAL CONDITIONS SIGNIFICANTLY AFFECTING CARE
Chronic atrial fibrillation managed with aspirin and a Watchman device.
SOCIAL DETERMINANTS AFFECTING HEALTH
The patient mentions that her daughter is her primary support system, particularly since she has been unable to walk due to the pain.
REVIEW OF SYSTEMS
- Cardiovascular: History of atrial fibrillation; taking aspirin for anticoagulation.
- Respiratory: Uses supplemental oxygen at night secondary to chemotherapy-related respiratory issues.
- Musculoskeletal: Severe pain in the left leg from knee to ankle, with significant difficulty in ambulation.
- Integumentary: Bandage covering foot ulcer.
PHYSICAL EXAM
General: Alert, no acute distress.
Skin: Noted inflammation and abnormal appearance suggestive of cellulitis vs chronic skin changes on the leg.
Cardiovascular: Normal peripheral perfusion.
Musculoskeletal: Inability to walk independently due to leg pain. lymphedema
PROBLEM LIST
Acute:
- Severe left leg pain potentially due to cellulitis.
- Possible blood clot in the left leg.
Chronic:
- Chronic atrial fibrillation.
- B-cell non-Hodgkin lymphoma, post-chemotherapy, currently receiving radiation therapy.
- Lymphadenia.
PLAN
An ultrasound of the left leg will be performed to assess for a possible blood clot. The patients current pain level will be managed conservatively without intravenous intervention initially. Monitoring for any further signs of cellulitis or
complications is advised.
DIFFERENTIAL DIAGNOSIS
The Differential Diagnosis includes, in no particular order and is not limited to:
1. Deep vein thrombosis
2. Cellulitis
3. Lymphedema exacerbation
4. Peripheral artery disease
5. Musculoskeletal strain or injury
6. Peripheral neuropathy
7. Medication side effects
8. Venous insufficiency
9. Bacterial superinfection
10. Thrombophlebitis
CARE-UPDATE
04/04/25 - 19:20
Ultrasound indicates DVT in the left common femoral vein and left greater saphenous vein, accompanied by a large left thigh mass. Admit for anticoagulation. Patient exhibits weakness and difficulty ambulating, requiring supplemental oxygen due to
hypoxia when not on oxygen.
Disposition:
SUMMARY OF ENCOUNTER
The patient, a 74-year-old female, presented to the emergency department with severe left leg pain. Subsequent ultrasound revealed deep vein thrombosis (DVT) in the left common femoral vein and left greater saphenous vein, accompanied by a known
mass in the left leg and left buttock. She experienced ambulation dysfunction and hypoxia, attributed to chronic restrictive lung disease. The decision was made to manage her DVT with .
DISPOSITION
Admit to hospitalist service for ongoing management and monitoring.
ASSESSMENT
The patient presented with acute issues including left-leg DVT warranting anticoagulation therapy and hypoxia likely linked to chronic restrictive lung disease.
EMERGENCY TREATMENTS ADMINISTERED
Intravenous heparin was administered for anticoagulation.
PLAN
The patient will be observed in an inpatient setting under hospitalist care to continue management of her DVT with anticoagulation therapy. Monitoring of her respiratory status and addressing her ambulation dysfunction are part of the care plan.
INDEPENDENT REVIEW OF LABS AND INTERPRETATION OF TESTS
My independent review of the ultrasound indicates DVT in the left common femoral vein and left greater saphenous vein, as well as a mass in the left leg.
FOLLOW-UP INSTRUCTIONS
Hospitalist to arrange for follow-up with specialists as necessary for ongoing management of DVT and associated conditions.
MEDICAL DECISION MAKING
- Complexity of Data Reviewed: Chronic conditions affecting care include chronic atrial fibrillation, B-cell non-Hodgkin lymphoma, lymphadenia, and restrictive lung disease. Differential diagnosis included deep vein thrombosis, cellulitis,
lymphedema exacerbation, peripheral artery disease, musculoskeletal strain or injury, peripheral neuropathy, medication side effects, venous insufficiency, bacterial superinfection, and thrombophlebitis.
- Data:
Category 1
My independent interpretation of the ultrasound confirmed the presence of DVT with a mass in the left leg.
- Risk:
Care significantly affected by Social Determinants of Health: The patient relies heavily on her daughter for support due to ambulation difficulties.
DIAGNOSIS
- Deep Vein Thrombosis of the left leg, I82.402
- Hypoxia due to chronic restrictive lung disease, R09.02
- Known mass in the left leg, R22.40
Past History
Past History
ED Past Medical History: Arrthythmia (Atrial fibrillation), Asthma, CAD, Cancer (Skin, meningioma grade 2 with radiation therapy and craniotomy), CHF, COPD, HTN, Hypercholesterolemia, NIDDM, [place], Hypothyroidism, Psychiatric (Major depression), Other
(PNA, Cellulitis, Chronic Lymphedema, bilateral heel ulcerations, osteomyelitis of the left heel, morbid obesity) and Other (Sepsis, peripheral neuropathy, anemia, rosacea, COVID 19, seizure disorder, pulmonary artery hypertension, nephrolithiasis,
B complex deficiency, prior acute respiratory failure); Negative Renal failure (Stage IIIa)
ED Past Surgical History: Brain (Right frontal craniotomy for meningioma 2022), Cardiac (cardioversion, Stents X 2, Watchman device), Cholecystectomy (1982), Orthopedic (Left reverse shoulder arthroplasty December 2023), Urological (Bladder repair,
kidney stone extraction) and Other (Right femoral artery cannulation January 2024, Mohs surgery forehead 2021)
Social History
Tobacco: Former smoker
Alcohol: Daily (Vodka 1 large glass)
Drug: None
Personal:
Living: alone
Employment: Retired
Family History
Family History: Hypertension
Phy Exam
Physical Exam
Physical Exam:
.
Course
Orders/Labs/Results
Orders:
Orders
04/04/25 15:56
US Periph Venous LOWER Ext Roney Urgent
Comment:
Reason For Exam: bilateral leg edema, left worse than right
04/04/25 15:58
IV Insert/Care/Rem.- Treatment PRN
04/04/25 16:10
CRP [C-Reactive Protein] Urgent
Complete Blood Count/With Diff Urgent
Comprehensive Metabolic Panel Urgent
ESR [Erythrocyte Sed Rate] Urgent
04/04/25 19:45
Admit/Transfer Patient As Directed
Co-Sign Provider:
Level of Care: Inpatient admission
Assign to:: Telemetry
Physician / Group: emir
Diagnosis: DVT
Reason for Telemetry: Arrhythmia
Date to Stop Telemetry: 04/07/25
Time to Stop Telemetry: 11:00
Reason for Hospitalization: DVT
Expected length of stay greater than two midnights?: Yes
ELOS- Estimated Length of Stay in days: 3
I certify the patient meets the requirements for IP care: Yes
04/04/25 19:46
PRN Pain Medication Management As Directed
May give lesser potent ordered pain med per pt: Yes
preference::
Protocol:: Medication orders for pain may be administered in a
manner that supports deferring to patient preference
when the pt is:
- Requesting an ordered lesser potent pain medication.
Least to most potent pain medications are defined
as: acetaminophen < NSAID < tramadol < opioids
(morphine, oxycodone, hydromorphone).
- Requesting a lesser dose of the same medication IF
ORDERED.
- Requesting a less intrusive route of administration
if both routes are prescribed by the provider (PO <
IV).
04/04/25 19:48
Code Status As Directed
Resuscitation Status: Full Code
04/04/25 20:20
PT/INR [Prothrombin Time] Stat
DX Deep Vein Thrombosis Video Routine
04/04/25 21:00
Enoxaparin Sodium [Lovenox] 120 mg SC Q12H
04/07/25 11:00
DC Protocol for Telemetry ONCE
Abnormal Lab Results
04/04/25
16:10
RBC 3.91 L 10^6/uL
(4.20-5.40)
Hgb 10.3 L g/dL
(12.0-16.0)
Hct 34.1 L %
(37.0-47.0)
MCH 26.3 L pg
(27.0-31.0)
MCHC 30.2 L g/dL
(33.0-37.0)
RDW 16.8 H %
(11.5-14.5)
Absolute Lymphs (auto) 1.0 L 10^3/uL
(1.2-3.4)
Neutrophils % 76.8 H %
(42.2-75.2)
Lymphocytes % 12.9 L %
(20.5-51.1)
ESR 41 H mm/hour
(0-20)
BUN 42 H mg/dl
(7-17)
Glucose 224 H mg/dl
(70-99)
C-Reactive Protein 10.70 H mg/L
(0.0-10.00)
04/04/25 16:10
04/04/25 16:10
Vital Signs
Initial and Last Documented VS:
Initial Vital Signs
Temp Pulse Resp BP Pulse Ox
97.6 F 60 16 109/48 94
04/04/25 14:45 04/04/25 14:45 04/04/25 14:45 04/04/25 14:45 04/04/25 14:45
Last Documented Vital Signs
Temp Pulse Resp BP Pulse Ox
97.6 F 60 23 109/62 92
04/04/25 14:45 04/04/25 15:30 04/04/25 15:30 04/04/25 15:09 04/04/25 15:45
*Pulse Oximetry
SaO2: 92
Oxygen Mode of Delivery: Room air
Patient hypoxic: no
*Critical Care Note
Total Time (30-74mins, 75-104mins- exclusive of procedures): Not Applicable
ED Attending Note
-
Portions of this chart may have been created with voice recognition software.� Occasional wrong word or��sound alike� substitutions may have occurred due to the inherent limitations of voice recognition software.
Discharge Plan
Departure
Patient Disposition: Admit
Date of Disposition: 04/04/25
Time of Disposition: 19:15
Admit to: Telemetry
Presentation/result/management discussed w/ accepting MD/DO: Hospitalist
Patient with high blood pressure during this ER visit?: Yes
Condition: Fair
Discharge Problem:
Acute deep vein thrombosis (DVT) of left lower extremity, Non Hodgkin's lymphoma, Asthma, Permanent atrial fibrillation
Prescriptions:
No Action
atorvastatin [Lipitor] 40 mg Tablet
40 mg PO QPM
bumetanide [Bumex] 2 mg Tablet
2 mg PO DAILY
ondansetron HCl [Zofran] 4 mg Tablet
4 mg PO Q6HPRN PRN (Reason: nausea)
verapamil 180 mg Tablet Extended Release
180 mg PO DAILY
midodrine 5 mg Tablet
5 mg PO TID
Theragen Tablet
1 tab PO DAILY
aspirin 81 mg Tablet,Delayed Release (Dr/Ec)
81 mg PO DAILY
spironolactone 25 mg Tablet
12.5 mg PO DAILY
pantoprazole [Protonix] 40 mg Tablet,Delayed Release (Dr/Ec)
40 mg PO DAILY
levothyroxine [Synthroid] 125 mcg Tablet
125 mcg PO DAILY
gabapentin 300 mg Capsule
300 mg PO BID
montelukast [Singulair] 10 mg Tablet
10 mg PO DAILY
allopurinol 300 mg Tablet
300 mg PO DAILY
digoxin 125 mcg (0.125 mg) Tablet
125 mcg PO DAILY
metoprolol succinate [Toprol XL] 25 mg Tablet Extended Release 24 Hr
25 mg PO DAILY
metformin 500 mg Tablet Extended Release 24 Hr
500 mg PO BID
sertraline 50 mg Tablet
50 mg PO HS
fenofibrate nanocrystallized [Tricor] 48 mg Tablet
48 mg PO HS
Referrals:
Betsy Heard NP [Family Provider, Internal Medicine]
Interventions
Interventions:
*Risk Screen - Suicide Last Done: 04/04/25 14:45
*Neglect/Abuse Screening Last Done: 04/04/25 14:45
ED-Musculoskeletal Assessment Last Done: 04/04/25 15:26
ED-Peripheral Vascular Assessment Last Done: 04/04/25 15:26
ED-Skin Assessment Last Done: 04/04/25 15:26
Discharge Date and Time
Print Language: LITHUANIAN
[2025-04-04 16:20] LABS: Hematocrit 34.1 % (37.0-47.0); Hemoglobin 10.3 g/dL (12.0-16.0); Mean Corp Hgb Conc. 30.2 g/dL (33.0-37.0); Mean Corpuscular Volume 87.2 fL (81.0-99.0); Nucleated Red Blood Cells % 0 %; Platelet Count 238 10^3/uL (130-400); Red Cell Dist. Width 16.8 % (11.5-14.5)
[2025-04-04 16:41] LABS: ALT (SGPT) < 10 U/L (0-35); AST (SGOT) 15 U/L (14-36); Albumin 3.7 g/dl (3.5-5.0); Alkaline Phosphatase 71 U/L (38-126); Blood Urea Nitrogen 42 mg/dl (7-17); Calcium 9.0 mg/dl (8.4-10.2); Carbon Dioxide 30 mmol/L (22-30); Chloride 100 mmol/L (98-107); Glucose 224 mg/dl (70-99); Potassium 4.2 mmol/L (3.5-5.1); Sodium 135 mmol/L (135-145); Total Protein 6.3 g/dl (6.3-8.2); eGFR 58.39
[2025-04-04 16:46] LABS: C-Reactive Protein 10.70 mg/L (0.0-10.00)
--- NOTE | 2025-04-04 19:23 | HPS.HSE ---
Addendum entered and electronically signed by Jovani Talavera DO 04/04/25 20:46:
Patient seen and examined independently. Agree with findings and plan as set forth by DB Powers.
Patient is a 74y F with PMH significant for CKD, DM-II and B Cell Lymphoma currently on XRT who presents to ED complaining of LLE pain and inability to ambulate. Patient states that symptoms have been progressive over the past week. No specific
injury or trauma (aside from 'stubbing' her L great toe entering her vehicle). No recent travel. Patient presented to the ED for evaluation and is found to have LLE DVT.
Ass:
LLE DVT
B Cell Lymphoma / L Thigh and Groin Mass
Left Heel Diabetic Wound
Anemia of Chronic Disease
Permanent A-Fib
Benign Hypertension
Orthostatic Hypotension
Chronic HFpEF
Chronic Hypoxemic Respiratory Failure on Home O2
DM-II
ASCVD / PAD
Hypothyroidism
Morbid Obesity due to excess calories
Plan:
Admit for further evaluation and treatment.
s/p chemo course for B cell lymphoma without resolution.
No in the midst of daily XRT (-) with next scheduled session on Monday.
Begin weight-based Lovenox for now for DVT.
Hematology / Oncology evaluation for additional recommendations.
PT eval.
Adjust medication regimen / plan for discharge ideally by Monday to avoid missed XRT session(s).
Continue usual CV med regimen, O2 support, etc.
Original Note:
Family Physician
-
Family Physician: Betsy Heard
Chief Complaint
-
Left lower extremities pain
History of Present Illness
74-year-old with a past medical history for CKD, type 2 diabetes, A-fib, pulmonary artery hypertension, hypothyroidism, lymphedema, hypertension, CHF, peripheral vascular disease, chronic O2 dependent non-Hodgkin's lymphoma on radiation presented to
us with left lower extremities pain and unable to walk for past 1 week. Patient is chronic lymphedema patient denied any chest pain or short of breath. Patient denied any headache, dizzy or syncope. Patient denied any abdominal pain, nausea,
vomiting or diarrhea. Patient denied dysuria materia
Concern for DVT. Admitted for further management
Medical History
Past Medical History
Past Medical History: Reports Other
Additional Past Medical History:
Cardiorenal syndrome, CKD, CHF, meningioma, A-fib, pulmonary artery hypertension, iron deficiency anemia, hypothyroidism, asthma, insomnia, lymphedema of bilateral lower extremities, coronary artery disease, kidney stones, cellulitis, B12
deficiency, type 2 diabetes, hyperlipidemia, hypertension, sleep, hypothyroidism PVD, gout, bilateral carotid stenosis
Past Surgical History: Reports Other
Additional Past Surgical History:
Left shoulder replacement, cholecystectomy, kidney stones removed, tonsillectomy, coronary artery stent cardioversion skin cancer removed, heel debridement, cardiac ablation, Mohs surgery status post crani for meningioma, Watchman procedure,
shoulder repair, arthroplasty
Social History
Tobacco: Former Smoker
Alcohol: None
Drug: None
Living: With Family
Family History
Family History: Not pertinent
Allergies / Home Medications
Allergies reflects when Allergies were last updated in [facility].
Home Medications with original date entered in [facility]
Allergy/Medication List:
Allergies
Allergy/AdvReac Type Severity Reaction Status Date / Time
cat dander Allergy ASTHMA/SOB Verified 04/04/25 14:45
levofloxacin (From Levaquin Allergy Hives Verified 04/04/25 14:45
Leva-Carlos)
Penicillins Allergy Shortness Verified 04/04/25 14:45
of Breath
piperacillin Allergy Anaphylaxis, Verified 04/04/25 14:45
acute
hypoxemic
resp f,
hypotensitching
01/25/24
Sulfa (Sulfonamide Allergy Hives Verified 04/04/25 14:45
Antibiotics)
vancomycin (Vancomycin) Allergy Rash/red Verified 04/04/25 14:45
tino
syndrome
Review of Systems
-
Constitutional: Reports No Symptoms
EENT: Reports No Symptoms
Respiratory: Reports No Symptoms
Cardiac: Reports No Symptoms
Abdomen/GI: Reports No Symptoms
: Reports No Symptoms
Musculoskeletal: Reports No Symptoms
Skin: Reports Other (Left heel wound, left great toe wound)
Neurological: Reports No Symptoms
Endocrine: Reports No Symptoms
Hematologic/Lymphatic: Reports No Symptoms
Psych: Reports No Symptoms
Physical Exam
Vital Signs
Vital Signs
Temp Pulse Resp BP Pulse Ox
97.6 F 60 23 109/62 92
04/04/25 14:45 04/04/25 15:30 04/04/25 15:30 04/04/25 15:09 04/04/25 15:45
Physical Exam
General: Well Developed, Well Nourished and No Apparent Distress
HEENT: NormoCephalic, Moist mucous membranes and Atraumatic
Respiratory: Clear
Cardiac: S1/S2 and Regular Rhythm; No Murmur or Rub
GI: Soft, Non Tender, Non Distended and Normal Bowel Sounds; No Organomegaly
Rectal: Deferred by Provider
Musculoskeletal: No Clubbing, No Cyanosis and Other (Lymphedema left greater than right)
Skin: Other (Left heel wound, left great toe wound)
Neuro: AO x 3 and Nonfocal/grossly intact
Psych: Calm
Laboratory Results
-
04/04/25 16:10
04/04/25 16:10
Laboratory Results
Total Bilirubin 0.6 mg/dl (0.2-1.3) 04/04/25 16:10
AST 15 U/L (14-36) 04/04/25 16:10
ALT < 10 U/L (0-35) 04/04/25 16:10
Alkaline Phosphatase 71 U/L (38-126) 04/04/25 16:10
Data Reviewed
-
Ultrasound: Report Reviewed by me
Lab Data: Labs Reviewed by me
Impression/Plan
-
# Thrombus in the left greater saphenous vein and common femoral vein due to malignancy
- Duplex with impression of No evidence of deep venous thrombosis of the right lower extremity.Small right groin lymph nodes.Thrombus in the left greater saphenous vein and common femoral vein. Left calf deep veins not visualized.
-Lovenox
-hematology consulted
#left knee diabetic wound
#b/l LE lymphedema
-wound care consulted
-follows podiatry as outpatient
# Non-Hodgkin's lymphoma
- on Chemo and radiation
- [facility]
# Anemia of chronic disease
- Hemoglobin stable at 10.3, no active bleeding
- Continue to monitor
# Permanent atrial fibrillation status post Watchman device
-continue metoprolol/digoxin.
- Obtain EKG
# Type 2 diabetes mellitus
- Maintained on insulin sliding scale/Lantus
- CHF diet
# Chronic hypoxic resp insufficiency
# History of diastolic CHF-not in acute exacerbation
- Patient uses 2 L at baseline, continue supplemental oxygen
- Strict BENITA, daily weight
- Diuretics continued
#GOUT
-allopurinol continued
#HLD
-statin,fenofibrate continued
#PAD
-gabapentin continued
#hypotension
-on Midodrine
#hypothyroidism
-levothyroxine continued
#GERD
-PPI continued
#anxiety
-sertraline continued
#essential HTN
-verapamil continued
#CODE status
-full code
[2025-04-04 21:26] LABS: INR 1.08; PT 14.3 Sec (11.4-14.6)
[2025-04-04] MEDS: LOVENOX 120 MG SC (22:45)
[2025-04-05] VITALS (11 sets, daily range): BP systolic 97–129; BP diastolic 48–69; PULSE 87–93; O2SAT 93; BMI 40.0
[2025-04-05 00:45] LABS: Glucose - Point of Care 248 mg/dl (70-99)
[2025-04-05] MEDS: ZOLOFT 50 MG PO ×2 (01:06→21:52)
[2025-04-05] MEDS: TRICOR 48 MG PO ×2 (01:06→21:52)
[2025-04-05] MEDS: NEURONTIN 300 MG PO ×3 (01:06→19:50)
--- NOTE | 2025-04-05 01:13 | PTCARENOTE ---
rec'd pt from ER. transferred to bed as pt not able to stand. new purewick placed. pt denies pain at this time. call duque in reach. oriented to unit.
[2025-04-05] MEDS: SYNTHROID 125 MCG PO (05:54)
[2025-04-05 06:29] LABS: Hematocrit 33.5 % (37.0-47.0); Hemoglobin 10.0 g/dL (12.0-16.0); Mean Corp Hgb Conc. 29.9 g/dL (33.0-37.0); Mean Corpuscular Volume 88.2 fL (81.0-99.0); Platelet Count 231 10^3/uL (130-400); Red Cell Dist. Width 16.8 % (11.5-14.5)
[2025-04-05 07:00] LABS: Blood Urea Nitrogen 37 mg/dl (7-17); Calcium 9.0 mg/dl (8.4-10.2); Carbon Dioxide 30 mmol/L (22-30); Chloride 103 mmol/L (98-107); Digoxin 1.1 ng/ml (0.8-2.0); Estimated Creatinine Clearance 55 ml/min; Glucose 222 mg/dl (70-99); Potassium 4.1 mmol/L (3.5-5.1); Sodium 137 mmol/L (135-145); eGFR 58.39
[2025-04-05 08:05] LABS: Glucose - Point of Care 193 mg/dl (70-99)
[2025-04-05] MEDS: NOVOLOG FLEXPEN-LOW RESISTANCE 1 UNITS SC (08:17)
[2025-04-05] MEDS: SINGULAIR 10 MG PO (08:17)
[2025-04-05] MEDS: LOVENOX 120 MG SC (08:19)
[2025-04-05] MEDS: TOPROL XL 25 MG PO (08:20)
[2025-04-05] MEDS: LANOXIN 125 MCG PO (08:21)
[2025-04-05] MEDS: CALAN EXTENDED RELEASE 180 MG PO (08:21)
[2025-04-05] MEDS: ASPIR LOW (ENTERIC COATED) 81 MG PO (08:22)
[2025-04-05] MEDS: BUMEX 2 MG PO (08:22)
[2025-04-05] MEDS: ZYLOPRIM 300 MG PO (08:22)
[2025-04-05] MEDS: ALDACTONE 12.5 MG PO (08:23)
[2025-04-05] MEDS: PROTONIX 40 MG PO (08:23)
--- NOTE | 2025-04-05 09:29 | W.PN.HOSP.TC ---
Today's Communication/Plan
-
EKG for admission
SQ Lovenox,
Add Lantus
Assessment / Plan
Assessment / Plan
Physical Exam
General: Well Developed, Well Nourished and No Apparent Distress. Obese.
HEENT: Normocephalic, Moist mucous membranes and Atraumatic
Respiratory: Clear
Cardiac: S1/S2
GI: Soft, Non Tender, Non Distended and Normal Bowel Sounds; left groin tender mass but no signs of cellulitis in the area.
Musculoskeletal: No Clubbing, No Cyanosis and Other (Lymphedema left greater than right)
Skin: Other (Left heel dry wound, left great toe wound)
Neuro: AO x 3 and Nonfocal/grossly intact
Psych: Calm
A/P:
# Thrombus in the left greater saphenous vein and common femoral vein due to malignancy
- Duplex with impression of No evidence of deep venous thrombosis of the right lower extremity.Small right groin lymph nodes.Thrombus in the left greater saphenous vein and common femoral vein. Left calf deep veins not visualized.
-Lovenox
-hematology consulted
#left knee diabetic wound
#b/l LE lymphedema
-wound care consulted
-follows podiatry as outpatient
# Non-Hodgkin's lymphoma
- on Chemo and radiation
- [facility]
# Obesity BMI 39
# Anemia of chronic disease
- Hemoglobin stable at 10.3, no active bleeding
- Continue to monitor
# Permanent atrial fibrillation status post Watchman device
-continue metoprolol/digoxin.
- Obtain EKG
# Type 2 diabetes mellitus
- Maintained on insulin sliding scale/Lantus
- CHF diet
# Chronic hypoxic resp insufficiency
# History of diastolic CHF-not in acute exacerbation
- Patient uses 2 L at baseline, continue supplemental oxygen
- Strict BENITA, daily weight
- Diuretics continued
#GOUT
-allopurinol continued
#HLD
-statin,fenofibrate continued
#PAD
-gabapentin continued
#hypotension
-on Midodrine
#hypothyroidism
-levothyroxine continued
#GERD
-PPI continued
#anxiety
-sertraline continued
#essential HTN
-verapamil continued
#CODE status
-full code
Total time spent to see the patient, examine the patient, review data and lab results, discuss treatment plan with patient, nursing staff around 55 minutes
Anticipated Discharge: 24 - 48 hours
Subjective/Interval History
-
Date of Service: April 05, 2025
No pain while sitting in bed
Reports limited mobility due to pain in left groin mass
Objective Data
-
Labs:
Laboratory Results
04/05/25
05:14
WBC 4.8
Hgb 10.0 L
Hct 33.5 L
Plt Count 231
Sodium 137
Potassium 4.1
Chloride 103
Carbon Dioxide 30
BUN 37 H
Creatinine 1.0
Glucose 222 H
Calcium 9.0
Vital Signs:
Vital Signs
Temp Pulse Resp BP Pulse Ox
97.5 F 74 18 112/50 93
04/05/25 07:53 04/05/25 08:23 04/05/25 07:53 04/05/25 08:23 04/05/25 07:53
I&O
04/04/25 04/05/25 04/06/25
06:59 06:59 05:59
Output Total 800 / 800
Balance -800 / -800
[2025-04-05] MEDS: TYLENOL 650 MG PO (11:08)
--- NOTE | 2025-04-05 11:12 | CM ---
Addendum entered by Lizeth Barahona 04/05/25 13:56:
Pt qualified for $10 Eliqis coupon. Coupon given.
Referral placed to resume HH with [facility]. Son will notify [facility] regarding planned discharge for 04/06/25.
Pt states she has no needs related to home O2
[facility]

Plan: DC home 04/06/25 with home O2 at her baseline of 2LPM and [facility]
Addendum entered by Lizeth Barahona 04/05/25 13:01:
Response to CM Referral: Eliqis 5 mg/30 days is $363.99. PT's pharmacy does not carry the 10mg dose. Dr Galicia made aware via [facility] text.
Addendum entered by Lizeth Barahona 04/05/25 11:25:
Pt has hx of HH with [facility]. Uses [facility] for [employer]
Pt will provide the name of the respiratory company either today or tomorrow; needs to check with family
Original Note:
IA completed. IMM completed and placed in chart. Lives with Son, Dtr-in-law,grandson and grandson's fiance in a 2 story home with one step at the entrance to the home. Has wheelchair ramp. Confirmed PCP, RX insurance and drug coverage.
PCP: Betsy Heard
RX: [facility] [place] [address]
Full BR is on the 2nd floor. Pt has a stair glide but cannot currently use it due to not being able to bend her leg. Has been unable to use the second floor for about a year.She has a caregiver in the home to assist her with bathing (private pay).
DME: rolling walker, SPC (not in use),Wheelchair, BR grab bars.
Has 3L n/c home O2. Has a concentrator and portable tank at home. Vendor is unknown.
Has hx of HH with [facility] nursing, and PT.
Hx of SNF at [facility] ( this would be an acceptable SNF at discharge if needed.) Was also at [facility] and is not willing to go back there.
On Lovenox for anticoagulation
Plan: TBD
[2025-04-05 11:30] LABS: Glucose - Point of Care 262 mg/dl (70-99)
--- NOTE | 2025-04-05 11:30 | CON.ONC ---
Consultation
-
Date Consultation Requested: 04/04/25
Date Consultation Performed: 04/05/25
Reason for Consultation: DVT
Impression
Impression
DVT greater saphenous and common femoral
Non-Hodgkin's lymphoma with residual burden receiving radiation therapy
Plan
Plan
Patient has chronic lymphedema deep system difficult image
Recently started radiation therapy
Increased sedentary state
Lovenox to [facility] preferred apixaban
Patient History
History of Present Illness
74-year-old with a past medical history for CKD, type 2 diabetes, A-fib, pulmonary artery hypertension, hypothyroidism, lymphedema, hypertension, CHF, peripheral vascular disease, chronic O2 dependent non-Hodgkin's lymphoma on radiation presented to
us with left lower extremities pain and unable to walk for past 1 week. Patient is chronic lymphedema patient denied any chest pain or short of breath. Patient denied any headache, dizzy or syncope. Patient denied any abdominal pain, nausea,
vomiting or diarrhea. Patient denied dysuria materia
Past-Medical/Surgical History
Past Medical History:
Cardiorenal syndrome, CKD, CHF, meningioma, A-fib, pulmonary artery hypertension, iron deficiency anemia, hypothyroidism, asthma, insomnia, lymphedema of bilateral lower extremities, coronary artery disease, kidney stones, cellulitis, B12
deficiency, type 2 diabetes, hyperlipidemia, hypertension, sleep, hypothyroidism PVD, gout, bilateral carotid stenosis
Past Surgical History:
Left shoulder replacement, cholecystectomy, kidney stones removed, tonsillectomy, coronary artery stent cardioversion skin cancer removed, heel debridement, cardiac ablation, Mohs surgery status post crani for meningioma, Watchman procedure,
shoulder repair, arthroplasty
Social History
Tobacco: Former Smoker
Alcohol: None
Drug: None
Living: With Family
Family History
Family History: Not pertinent
Patient Medication
�Medication �Instructions �Recorded �Confirmed �Last Taken �Type
allopurinol 300 mg tablet 300 mg PO DAILY Gout 04/04/25 04/04/25 04/04/25 History
aspirin 81 mg tablet,delayed 81 mg PO DAILY Blood Clot 04/04/25 04/04/25 04/04/25 History
release Prevention/Tx
atorvastatin 40 mg tablet (Lipitor) 40 mg PO QPM High Cholesterol 04/04/25 04/04/25 04/03/25 History
bumetanide 2 mg tablet 2 mg PO DAILY Fluid 04/04/25 04/04/25 04/04/25 History
Retention/Swelling
digoxin 125 mcg (0.125 mg) tablet 125 mcg PO DAILY Heart 04/04/25 04/04/25 04/04/25 History
Disease/Condition
fenofibrate nanocrystallized 48 mg 48 mg PO HS High Cholesterol 04/04/25 04/04/25 04/03/25 History
tablet (Tricor)
gabapentin 300 mg capsule 300 mg PO BID Neurological 04/04/25 04/04/25 04/04/25 History
Condition
levothyroxine 125 mcg tablet 125 mcg PO DAILY Thyroid 04/04/25 04/04/25 04/04/25 History
(Synthroid)
metformin 500 mg tablet,extended 500 mg PO BID Diabetes 04/04/25 04/04/25 04/04/25 History
release 24 hr
metoprolol succinate 25 mg 25 mg PO DAILY Heart 04/04/25 04/04/25 04/04/25 History
tablet,extended release 24 hr Disease/Condition
(Toprol XL)
midodrine 5 mg tablet 5 mg PO TID Blood Pressure 04/04/25 04/04/25 04/04/25 History
montelukast 10 mg tablet 10 mg PO DAILY Allergies 04/04/25 04/04/25 04/04/25 History
(Singulair)
ondansetron HCl 4 mg tablet 4 mg PO Q6HPRN PRN nausea 04/04/25 04/04/25 Unknown History
pantoprazole 40 mg tablet,delayed 40 mg PO DAILY gerd 04/04/25 04/04/25 04/04/25 History
release (Protonix)
sertraline 50 mg tablet 50 mg PO HS Mental Health/Anxiety 04/04/25 04/04/25 04/03/25 History
spironolactone 25 mg tablet 12.5 mg PO DAILY Fluid 04/04/25 04/04/25 04/04/25 History
Retention/Swelling
therapeutic multivitamin 1 tab PO DAILY Supplement 04/04/25 04/04/25 04/04/25 History
verapamil 180 mg tablet,extended 180 mg PO DAILY Heart 04/04/25 04/04/25 04/04/25 History
release Disease/Condition
Active Medications
Generic Name Dose Route Start Last Admin
Trade Name Freq PRN Reason Stop Dose Admin
Acetaminophen 650 mg 04/05/25 00:33 04/05/25 11:08
Acetaminophen 325 Mg Tablet PO 05/03/25 00:32 650 mg
Q4HPRN PRN Administration
mild pain/TOUSSAINT/temp> 100.4F
Allopurinol 300 mg 04/05/25 08:00 04/05/25 08:22
Allopurinol 300 Mg Tablet PO 05/03/25 07:59 300 mg
DAILY OFELIA Administration
Aspirin 81 mg 04/05/25 08:00 04/05/25 08:22
Aspirin 81 Mg (Enteric Coated) Tablet PO 05/03/25 07:59 81 mg
DAILY OFELIA Administration
Atorvastatin Calcium 40 mg 04/05/25 18:00
Atorvastatin (Lipitor) 40 Mg Tablet PO 05/03/25 17:59
QPM OFELIA
Bisacodyl 10 mg 04/05/25 00:33
Bisacodyl 10 Mg Rectal Suppository RECTAL 05/03/25 00:32
[id number] PRN
constipation
Bumetanide 2 mg 04/05/25 08:00 04/05/25 08:22
Bumetanide 1 Mg Tablet PO 05/03/25 07:59 2 mg
DAILY OFELIA Administration
Dextrose 12.5 grams 04/05/25 00:33
Dextrose 50% (0.5 Grams/Ml) 50 Ml Syringe IV 05/03/25 00:32
[id number] PRN
hypoglycemia
Protocol
Digoxin 125 mcg 04/05/25 08:00 04/05/25 08:21
Digoxin 125 Mcg Tablet PO 05/03/25 07:59 125 mcg
DAILY OFELIA Administration
Enoxaparin Sodium 120 mg 04/04/25 21:00 04/05/25 08:19
Enoxaparin Sodium 120 Mg/0.8 Ml Syringe SC 05/02/25 20:59 120 mg
Q12H OFELIA Administration
Fenofibrate 48 mg 04/05/25 00:33 04/05/25 01:06
Fenofibrate 48 Mg Tablet PO 05/03/25 00:32 48 mg
HS OFELIA Administration
Gabapentin 300 mg 04/05/25 00:33 04/05/25 08:23
Gabapentin 300 Mg Capsule PO 05/03/25 00:32 300 mg
BID OFELIA Administration
Glucagon 1 mg 04/05/25 00:33
Glucagon 1 Mg Vial IM 05/03/25 00:32
PRN PRN
hypoglycemia
Protocol
Insulin Aspart 0 units 04/05/25 07:30 04/05/25 08:17
Insulin Aspart Low Resistance 300 Units/3 Ml Pen.Injctr SC 05/03/25 07:29 1 units
AC OFELIA Administration
Protocol
Insulin Aspart 5 units 04/05/25 11:30
Insulin Aspart (Novolog) 100 Units/Ml 3 Ml Flexpen SC 05/03/25 11:29
AC OFELIA
Levothyroxine Sodium 125 mcg 04/05/25 06:00 04/05/25 05:54
Levothyroxine 125 Mcg Tablet PO 05/03/25 05:59 125 mcg
DAILY @ 0600 OFELIA Administration
Metoprolol Succinate 25 mg 04/05/25 08:00 04/05/25 08:20
Metoprolol 25 Mg Extended Release Tablet PO 05/03/25 07:59 25 mg
DAILY OFELIA Administration
Midodrine 5 mg 04/05/25 00:33 04/05/25 08:20
Midodrine 5 Mg Tablet PO 05/03/25 00:32 5 mg
TID OFELIA Administration
Montelukast Sodium 10 mg 04/05/25 08:00 04/05/25 08:17
Montelukast Sodium 10 Mg Tablet PO 05/03/25 07:59 10 mg
DAILY OFELIA Administration
Pantoprazole Sodium 40 mg 04/05/25 08:00 04/05/25 08:23
Pantoprazole 40 Mg Delayed Release Tablet PO 05/03/25 07:59 40 mg
DAILY OFELIA Administration
Polyethylene Glycol 17 grams 04/05/25 00:33
Polyethylene Glycol Powder 17 Grams Packet PO 05/03/25 00:32
DAILYPRN PRN
constipation
Senna/Docusate Sodium 1 tablet 04/05/25 00:33
Docusate W/Senna (Christine-Colace) Tablet PO 05/03/25 00:32
BIDPRN PRN
constipation
Sertraline HCl 50 mg 04/05/25 00:33 04/05/25 01:06
Sertraline 50 Mg Tablet PO 05/03/25 00:32 50 mg
HS OFELIA Administration
Sodium Chloride 0 flush 04/05/25 01:00
Sodium Chloride 0.9% (Flush) Syringe IV 05/03/25 00:59
PER PROTOCOL OFELIA
Spironolactone 12.5 mg 04/05/25 08:00 04/05/25 08:23
Spironolactone 25 Mg Tablet PO 05/03/25 07:59 12.5 mg
DAILY OFELIA Administration
Verapamil HCl 180 mg 04/05/25 08:00 04/05/25 08:21
Verapamil 180 Mg (Extended Release) Tablet PO 05/03/25 07:59 180 mg
DAILY OFELIA Administration
Review of Systems
-
12 point review of systems fails to elicit additional complaints other than chronic lymphedema for which she is evaluated by vascular and awaiting lymphedema pump
Physical Exam
-
Physical Exam
General: Well Developed, Well Nourished and No Apparent Distress
HEENT: NormoCephalic, Moist mucous membranes and Atraumatic
Respiratory: Clear
Cardiac: S1/S2 and Regular Rhythm; No Murmur or Rub
GI: Soft without tenderness or distention
Musculoskeletal: No Clubbing, No Cyanosis and Other (Lymphedema left greater than right)
Neuro: Nonfocal
Psych: Calm
Labs
Lab Results
WBC 4.8 10^3/uL (4.8-10.8) 04/05/25 05:14
RBC 3.80 10^6/uL (4.20-5.40) L 04/05/25 05:14
Hgb 10.0 g/dL (12.0-16.0) L 04/05/25 05:14
Hct 33.5 % (37.0-47.0) L 04/05/25 05:14
MCV 88.2 fL (81.0-99.0) 04/05/25 05:14
MCH 26.3 pg (27.0-31.0) L 04/05/25 05:14
MCHC 29.9 g/dL (33.0-37.0) L 04/05/25 05:14
RDW 16.8 % (11.5-14.5) H 04/05/25 05:14
Plt Count 231 10^3/uL (130-400) 04/05/25 05:14
MPV 10.4 fL (7.4-10.4) 04/05/25 05:14
Abs Immat Gran (auto) 0.0 10^3/uL (0-0.05) 04/04/25 16:10
Absolute Neuts (auto) 6.0 10^3/uL (1.4-6.5) 04/04/25 16:10
Absolute Lymphs (auto) 1.0 10^3/uL (1.2-3.4) L 04/04/25 16:10
Absolute Monos (auto) 0.5 10^3/uL (0.1-0.6) 04/04/25 16:10
Absolute Eos (auto) 0.2 10^3/uL (0-0.7) 04/04/25 16:10
Absolute Basos (auto) 0.1 10^3/uL (0-0.2) 04/04/25 16:10
Immature Gran % 0.3 % (0-0.5) 04/04/25 16:10
Neutrophils % 76.8 % (42.2-75.2) H 04/04/25 16:10
Lymphocytes % 12.9 % (20.5-51.1) L 04/04/25 16:10
Monocytes % 6.3 % (1.7-9.3) 04/04/25 16:10
Eosinophils % 2.8 % (0-6) 04/04/25 16:10
Basophils % 0.9 % (0-2) 04/04/25 16:10
Creatinine 1.0 mg/dL (0.6-1.0) 04/05/25 05:14
Vital Signs
Vital Signs
Temp Pulse Resp BP Pulse Ox
98.1 F 73 18 97/69 98
04/05/25 11:21 04/05/25 11:21 04/05/25 11:21 04/05/25 11:21 04/05/25 11:21
[2025-04-05 11:32] LABS: Urine Character Slightly Cloudy (Clear)
[2025-04-05] MEDS: NOVOLOG FLEXPEN-LOW RESISTANCE 3 UNITS SC (11:41)
[2025-04-05] MEDS: NOVOLOG FLEXPEN 5 UNITS SC ×2 (11:42→16:37)
[2025-04-05 11:51] LABS: Urine Red Blood Cell 0-2 /HPF (0-2); Urine Squamous Cell 0-2 /LPF (Few)
[2025-04-05 11:52] LABS: Urine White Cell 26-30 /HPF (0-5)
[2025-04-05 15:07] LABS: Glucose - Point of Care 223 mg/dl (70-99)
[2025-04-05] MEDS: NOVOLOG FLEXPEN-LOW RESISTANCE 2 UNITS SC (16:37)
[2025-04-05] MEDS: LIPITOR 40 MG PO (16:38)
[2025-04-05] MEDS: ELIQUIS 10 MG PO (19:50)
[2025-04-05 21:17] LABS: Glucose - Point of Care 232 mg/dl (70-99)
[2025-04-06] MEDS: DESENEX/MITRAZOL/ZEASORB TOPICAL (00:46)
[2025-04-06 03:38] VITALS: BP 136/81
[2025-04-06] MEDS: SYNTHROID 125 MCG PO (05:11)
[2025-04-06 06:00] VITALS: BMI 40.1
[2025-04-06 07:05] LABS: Hematocrit 30.9 % (37.0-47.0); Hemoglobin 9.5 g/dL (12.0-16.0); Mean Corp Hgb Conc. 30.7 g/dL (33.0-37.0); Mean Corpuscular Volume 85.1 fL (81.0-99.0); Platelet Count 206 10^3/uL (130-400); Red Cell Dist. Width 16.7 % (11.5-14.5)
[2025-04-06 07:18] VITALS: BP 125/55
[2025-04-06 07:28] LABS: Blood Urea Nitrogen 30 mg/dl (7-17); Calcium 9.0 mg/dl (8.4-10.2); Carbon Dioxide 31 mmol/L (22-30); Chloride 106 mmol/L (98-107); Estimated Creatinine Clearance 61 ml/min; Glucose 159 mg/dl (70-99); Potassium 4.0 mmol/L (3.5-5.1); Sodium 143 mmol/L (135-145); eGFR > 60.00
[2025-04-06 07:49] LABS: Glucose - Point of Care 181 mg/dl (70-99)
[2025-04-06] MEDS: NOVOLOG FLEXPEN-LOW RESISTANCE 1 UNITS SC (07:49)
[2025-04-06] MEDS: NOVOLOG FLEXPEN 5 UNITS SC (07:49)
[2025-04-06] MEDS: CALAN EXTENDED RELEASE 180 MG PO (07:50)
[2025-04-06] MEDS: PROTONIX 40 MG PO (07:50)
[2025-04-06] MEDS: ELIQUIS 10 MG PO (07:50)
[2025-04-06] MEDS: SINGULAIR 10 MG PO (07:50)
[2025-04-06] MEDS: ALDACTONE 12.5 MG PO (07:50)
[2025-04-06] MEDS: TOPROL XL 25 MG PO (07:51)
[2025-04-06] MEDS: ASPIR LOW (ENTERIC COATED) 81 MG PO (07:51)
[2025-04-06] MEDS: BUMEX PO (07:51)
[2025-04-06] MEDS: ZYLOPRIM 300 MG PO (07:51)
[2025-04-06] MEDS: NEURONTIN 300 MG PO (07:51)
[2025-04-06] MEDS: LANOXIN 125 MCG PO (07:51)
[2025-04-06] MEDS: DESENEX/MITRAZOL/ZEASORB 1 APPLIC TOPICAL (07:52)
--- NOTE | 2025-04-06 09:26 | W.PN.HOSP.TC ---
Today's Communication/Plan
-
dc
Assessment / Plan
Assessment / Plan
Physical Exam
General: Well Developed, Well Nourished and No Apparent Distress. Obese.
HEENT: Normocephalic, Moist mucous membranes and Atraumatic
Respiratory: Clear
Cardiac: S1/S2
GI: Soft, Non Tender, Non Distended and Normal Bowel Sounds; left groin unchanged mass, no significant tenderness, no signs of cellulitis in the area.
Musculoskeletal: No Clubbing, No Cyanosis and Other (Lymphedema left greater than right)
Skin: Other (Left heel dry wound, left great toe wound)
Neuro: AO x 3 and Nonfocal/grossly intact
Psych: Calm
A/P:
# Thrombus in the left greater saphenous vein and common femoral vein due to malignancy
- Duplex with impression of No evidence of deep venous thrombosis of the right lower extremity.Small right groin lymph nodes.Thrombus in the left greater saphenous vein and common femoral vein. Left calf deep veins not visualized.
-Patient was evaluated by electrician apprentice powerhouse, recommended Eliquis treatment. Patient was started on Eliquis and counseled regarding potential side effects of systemic anticoagulation including bleeding, fall risk, she verbalized understandin
#left knee diabetic wound
#b/l LE lymphedema
-wound care consulted
-follows podiatry as outpatient
# Non-Hodgkin's lymphoma
- on Chemo and radiation
- Follow[facility]
Patient requested to be discharged today as soon as possible to accommodate her transportation needs. She has radiation treatment tomorrow morning.
# Obesity BMI 39
# Anemia of chronic disease
- Hemoglobin stable at 10.3, no active bleeding
- Continue to monitor
# Permanent atrial fibrillation status post Watchman device
-continue metoprolol/digoxin.
- Obtain EKG
# Type 2 diabetes mellitus
- Maintained on insulin sliding scale/Lantus
- CHF diet
# Chronic hypoxic resp insufficiency
# History of diastolic CHF-not in acute exacerbation
- Patient uses 2 L at baseline, continue supplemental oxygen
Patient was told to bring portable oxygen for the ride home. She said her son brought it in the car.
- Diuretics continued
#GOUT
-allopurinol continued
#HLD
-statin,fenofibrate continued
#PAD
-gabapentin continued
#hypotension
-on Midodrine
#hypothyroidism
-levothyroxine continued
#GERD
-PPI continued
#anxiety
-sertraline continued
#essential HTN
-verapamil continued
#CODE status
-full code
-Discharge planning. Consulted disability case manager regarding co-pay on home care.
Total discharge time spent to see the patient, examine the patient, review data and lab results, discuss discharge plan with patient, disability case managerocean export account manager staff around 65 minutes
Anticipated Discharge: Today
Subjective/Interval History
-
Date of Service: April 06, 2025
She is feeling better
No pain in groin
Denies chest pain or sob
Wants to go home today
Objective Data
-
Labs:
Laboratory Results
04/06/25
06:32
WBC 3.5 L
Hgb 9.5 L
Hct 30.9 L
Plt Count 206
Sodium 143
Potassium 4.0
Chloride 106
Carbon Dioxide 31 H
BUN 30 H
Creatinine 0.9
Glucose 159 H
Calcium 9.0
Vital Signs:
Vital Signs
Temp Pulse Resp BP Pulse Ox
97.8 F 71 18 125/55 96
04/06/25 07:18 04/06/25 07:50 04/06/25 07:18 04/06/25 07:50 04/06/25 08:00
I&O
04/05/25 04/06/25 04/07/25
06:59 05:59 06:59
Intake Total 600 / 600
Output Total 800 / 800 600 / 600
Balance -800 / -800 0 / 0
--- NOTE | 2025-04-06 10:38 | CM ---
Addendum entered by Lizeth Barahona 04/06/25 12:09:
Respiratory company
[facility] [phone], [phone]
Original Note:
Pt is discharged to home with [facility] on 3 LPM via n/c.
Pt states that this is what she is on at home. States she has a concentrator at home. Son will bring in O2 for transport. Pt will call son to get name of Respiratory company
--- NOTE | 2025-04-06 10:50 | PTCARENOTE ---
Pt. insisting she can leave hospital without portable oxygen tank upon discharge. Pt. sats off o2, 86-89%. Dr. Ariza updated and wants pt. to have family member bring portable O2 tank for discharge. Pt. made aware she can not leave without it. Pt.
states the portable o2 tank will be in the car. Dr. Ariza aware of plan.
--- NOTE | 2025-04-06 13:16 | W.DCSUMMARY ---
Discharge Summary
Discharge Data
Date of Admission: 04/04/25
Date of Discharge: 04/06/25
-
Pending Results: No
Hospital Course
74 years old female who presented to the hospital left lower extremity pain and inability to ambulate well. Patient had history of chronic lymphedema, obesity, non-Hodgkin's lymphoma. Peripheral venous ultrasound showed thrombus in the left
greater saphenous vein and common femoral vein. Patient noted that she had tender mass in the groin area but no evidence of cellulitis. Patient was started on full dose of Lovenox and hematology was consulted. Plastic Molding Operator evaluated the patient
and recommended to change Lovenox to direct acting oral anticoagulants, preferably apixaban. Patient was started on Eliquis. Physical therapy recommended home health services. Patient reported that she wanted to leave the hospital on Monday,
April 06 to be able to go for radiation therapy scheduled for Monday. manager target was consulted for home care services and Eliquis prescription. Patient has chronic hypoxic respiratory failure and on home oxygen. Patient was counseled
regarding potential side effects of systemic anticoagulation including bleeding and risk of falls, she verbalized understanding. Patient reported that her family with the [employer] for the home transport. Patient remained hemodynamically stable
and was discharged home in stable condition.
Discharge Plan
-
Patient Disposition: Home with Home Care
Discharge Diagnosis/Procedures: DVT greater saphenous and common femoral
Non-Hodgkin's lymphoma with residual burden receiving radiation therapy.
You are seen by oncology/hematology doctor. Recommended Eliquis 10 mg twice a day for 7 days then continue 5 mg twice a day and follow-up with your primary care doctor and oncologist.
Diet: As tolerated
Referrals:
Betsy Heard NP [Family Provider, Internal Medicine] - in one week
Prescriptions:
New
Eliquis DVT-PE Treat 30D Start 5 mg (74 tabs) tablets,dose pack
5 mg PO ONCE Qty: 74 0RF
Rx Instructions:
10 mg BID for 7 days then 5 mg BID
Continued
atorvastatin [Lipitor] 40 mg Tablet
40 mg PO QPM
bumetanide 2 mg Tablet
2 mg PO DAILY
ondansetron HCl 4 mg Tablet
4 mg PO Q6HPRN PRN (Reason: nausea)
verapamil 180 mg Tablet Extended Release
180 mg PO DAILY
midodrine 5 mg Tablet
5 mg PO TID
therapeutic multivitamin Tablet
1 tab PO DAILY
aspirin 81 mg Tablet,Delayed Release (Dr/Ec)
81 mg PO DAILY
spironolactone 25 mg Tablet
12.5 mg PO DAILY
pantoprazole [Protonix] 40 mg Tablet,Delayed Release (Dr/Ec)
40 mg PO DAILY
levothyroxine [Synthroid] 125 mcg Tablet
125 mcg PO DAILY
gabapentin 300 mg Capsule
300 mg PO BID
montelukast [Singulair] 10 mg Tablet
10 mg PO DAILY
allopurinol 300 mg Tablet
300 mg PO DAILY
digoxin 125 mcg (0.125 mg) Tablet
125 mcg PO DAILY
metoprolol succinate [Toprol XL] 25 mg Tablet Extended Release 24 Hr
25 mg PO DAILY
metformin 500 mg Tablet Extended Release 24 Hr
500 mg PO BID
sertraline 50 mg Tablet
50 mg PO HS
fenofibrate nanocrystallized [Tricor] 48 mg Tablet
48 mg PO HS
Discharge Orders:
Discharge Patient (As Directed); Ordered 04/06/25
Ordered By: Blair Ariza
Discharge Date and Time
Discharge Date/Time: 04/06/25 11:38
Print Language: NAMIBIAN
== END 2025-04-06 11:38 | disposition home health service (06) | DRG 300 ==
LOC: 4 EAST ACU 22:00
PROVIDERS: Registered Nurse; ADMITTING PHYSICIAN Hospitalist; ATTENDING PHYSICIAN Internal Medicine; CONSULT PHYSICIAN Internal Medicine Hematology & Oncology; EMERGENCY PHYSICIAN Emergency Medicine; FAMILY PHYSICIAN Internal Medicine
DX: I82.412 Acute embolism and thrombosis of left femoral vein (principal); C85.10 Unspecified B-cell lymphoma, unspecified site; I48.21 Permanent atrial fibrillation; I50.32 Chronic diastolic (congestive) heart failure; I13.0 Hypertensive heart and chronic kidney disease with heart failure and stage 1 through stage 4 chronic kidney disease, or unspecified chronic kidney disease; J96.11 Chronic respiratory failure with hypoxia; Z68.41 Body mass index [BMI] 40.0-44.9, adult; L97.419 Non-pressure chronic ulcer of right heel and midfoot with unspecified severity; L97.429 Non-pressure chronic ulcer of left heel and midfoot with unspecified severity; I82.812 Embolism and thrombosis of superficial veins of left lower extremity; I89.0 Lymphedema, not elsewhere classified; N18.9 Chronic kidney disease, unspecified; E11.22 Type 2 diabetes mellitus with diabetic chronic kidney disease; D63.1 Anemia in chronic kidney disease; I95.1 Orthostatic hypotension; Z99.81 Dependence on supplemental oxygen; I25.10 Atherosclerotic heart disease of native coronary artery without angina pectoris; E11.51 Type 2 diabetes mellitus with diabetic peripheral angiopathy without gangrene; E03.9 Hypothyroidism, unspecified; E66.01 Morbid (severe) obesity due to excess calories; Z92.21 Personal history of antineoplastic chemotherapy; K21.9 Gastro-esophageal reflux disease without esophagitis; F41.9 Anxiety disorder, unspecified; Z85.828 Personal history of other malignant neoplasm of skin; E11.42 Type 2 diabetes mellitus with diabetic polyneuropathy; E11.621 Type 2 diabetes mellitus with foot ulcer; E53.8 Deficiency of other specified B group vitamins; E78.00 Pure hypercholesterolemia, unspecified; F32.9 Major depressive disorder, single episode, unspecified; G40.909 Epilepsy, unspecified, not intractable, without status epilepticus; G47.00 Insomnia, unspecified; J98.4 Other disorders of lung; L71.9 Rosacea, unspecified; Z79.82 Long term (current) use of aspirin; Z79.84 Long term (current) use of oral hypoglycemic drugs; Z79.899 Other long term (current) drug therapy; Z79.890 Hormone replacement therapy; Z87.442 Personal history of urinary calculi; Z87.891 Personal history of nicotine dependence; Z90.49 Acquired absence of other specified parts of digestive tract; Z95.5 Presence of coronary angioplasty implant and graft; Z95.818 Presence of other cardiac implants and grafts; Z96.612 Presence of left artificial shoulder joint
CPT/HCPCS: 80048; 80053; 80162; 81003; 81015; 82962; 85025; 85027; 85610; 85652; 86140; 87086; 93005; 93970; 97162; 97166; 99284

== ENCOUNTER 2025-04-14 12:33 | Emergency (ER) | payer MEDICARE, SELFPAY ==
[2025-04-14] VITALS (8 sets, daily range): BP systolic 96–105; BP diastolic 40–93; BMI 40.1
[2025-04-14 13:08] LABS: Hematocrit 31.8 % (37.0-47.0); Hemoglobin 10.1 g/dL (12.0-16.0); Mean Corp Hgb Conc. 31.8 g/dL (33.0-37.0); Mean Corpuscular Volume 81.7 fL (81.0-99.0); Nucleated Red Blood Cells % 0 %; Platelet Count 159 10^3/uL (130-400); Red Cell Dist. Width 17.3 % (11.5-14.5)
[2025-04-14 13:22] LABS: ALT (SGPT) 11 U/L (0-35); AST (SGOT) 16 U/L (14-36); Albumin 3.8 g/dl (3.5-5.0); Alkaline Phosphatase 62 U/L (38-126); Blood Urea Nitrogen 34 mg/dl (7-17); Calcium 9.1 mg/dl (8.4-10.2); Carbon Dioxide 27 mmol/L (22-30); Chloride 102 mmol/L (98-107); Estimated Creatinine Clearance 68 ml/min; Glucose 204 mg/dl (70-99); Potassium 3.9 mmol/L (3.5-5.1); Sodium 135 mmol/L (135-145); Total Protein 6.4 g/dl (6.3-8.2); eGFR > 60.00
[2025-04-14 13:25] LABS: INR 2.39; PT 26.1 Sec (11.4-14.6)
[2025-04-14 13:26] LABS: APTT 29.4 Sec (23.4-35.0)
[2025-04-14 13:37] LABS: Troponin I 0.040 ng/ml
--- NOTE | 2025-04-14 13:47 | ED.GENMED ---
History of Present Illness
<Johnny Maza PA-C - Last Filed: 04/16/25 21:32>
General
Chief Complaint: Weakness
Source: patient and records
Time Seen by Provider: 04/14/25 13:33
History of Present Illness
History of Present Illness:
74-year-old female with past medical history including recent diagnosis of DVT to her left lower extremity, atrial fibrillation, CHF, CAD, previous [place], chronic lymphedema, CKD, insulin-dependent diabetes presenting to the emergency department at the
request of visiting nurse who noted patient had a fever this morning of 100.9 and seemed confused prompting her to have the patient come to the ER. At time of my exam patient is without any specific concerns. No medications were given for fever
prior to arrival. Patient denies any infectious symptoms including sore throat, cough, nasal congestion, otalgia, abdominal pain, nausea, vomiting, bowel changes or urinary symptoms. She herself did not feel as if she were febrile or felt any
different than her usual baseline physical state this morning. Patient did state that her visiting nurse thought her left upper extremity looked a little bit more erythematous than usual but patient believes this to be baseline.
Past History
<Johnny Maza PA-C - Last Filed: 04/16/25 21:32>
Past History
ED Past Medical History: Arrthythmia (Atrial fibrillation), Asthma, CAD, Cancer (Skin, meningioma grade 2 with radiation therapy and craniotomy), CHF, COPD, HTN, Hypercholesterolemia, NIDDM, [place], Hypothyroidism, Psychiatric (Major depression), Other
(PNA, Cellulitis, Chronic Lymphedema, bilateral heel ulcerations, osteomyelitis of the left heel, morbid obesity) and Other (Sepsis, peripheral neuropathy, anemia, rosacea, COVID 19, seizure disorder, pulmonary artery hypertension, nephrolithiasis,
B complex deficiency, prior acute respiratory failure); Negative Renal failure (Stage IIIa)
ED Past Surgical History: Brain (Right frontal craniotomy for meningioma 2022), Cardiac (cardioversion, Stents X 2, Watchman device), Cholecystectomy (1982), Orthopedic (Left reverse shoulder arthroplasty December 2023), Urological (Bladder repair,
kidney stone extraction) and Other (Right femoral artery cannulation January 2024, Mohs surgery forehead 2021)
Social History
Tobacco: Former smoker
Alcohol: Daily (Vodka 1 large glass)
Drug: None
Personal:
Living: alone
Employment: Retired
Family History
Family History: Hypertension
Review of Systems
<Johnny Maza PA-C - Last Filed: 04/16/25 21:32>
Review of Systems
All Other Systems: ROS reviewed and negative except as documented in HPI and ROS
Phy Exam
<Johnny Maza PA-C - Last Filed: 04/16/25 21:32>
Physical Exam
Physical Exam:
GENERAL: Alert , in no apparent distress, appears older than stated age, chronically ill
HEAD: Normocephalic atraumatic
EYE: conjunctiva clear, anicteric sclera
NECK: Supple
ENT: o/p clr, mmm.
CARDIAC: Regular rate and rhythm, sysolic murmur LSB .
LUNGS: Clear breath sounds bilaterally, no acute respiratory distress, no wheezes/rales/rhonchi, on 3L NC at baseline
ABDOMEN: Soft, without focal tenderness, no r/g, no cvat
NEUROLOGICAL: Alert and oriented
SKIN: Warm and dry, skin intact. venous stasis dermatitis to left lower extremity, older wound to right great toe is reportedly also baseline per patient, dry, non-weeping
MUSCULOSKELETAL: baseline lymphedema to b/l LE, well perfused.
PSYCH: Normal and appropriate interaction.
Scores
<Johnny Maza PA-C - Last Filed: 04/16/25 21:32>
Heart Failure Risk
Heart Failure Risk Score: Not Applicable
Heart Score for Chest Pain Patients
STEMI patient?: Not applicable
Withdrawal Assessment of Alcohol
Withdrawal Assessment Completed?: Not applicable
Course
<Johnny Maza PA-C - Last Filed: 04/16/25 21:32>
Orders/Labs/Results
Orders:
Orders
04/14/25 13:00
Electrocardiogram (*1) Urgent
Reason for Study: Shortness of Breath
EKG- Treatment ONCE
04/14/25 13:02
CMP [Comprehensive Metabolic Panel] Urgent
Complete Blood Count/With Diff Urgent
NT-proBNP Urgent
PT/INR [Prothrombin Time] Urgent
PTT Urgent
Troponin I Urgent
04/14/25 13:40
CR Chest - 2 Views Urgent
Comment:
Reason For Exam: weakness, fever
04/14/25 13:48
Lactic Acid Q4H
Comment: CANCEL 2nd LACTIC ACID IF 1st LACTIC ACID IS LESS THAN 2
Blood Culture Q30M
HENNY Source: Blood/Venous
Specimen Description:
04/14/25 13:49
Blood Culture Q30M
HENNY Source: Blood/Venous
Specimen Description:
Influenza A+B Rapid Molecular Urgent
HENNY Source: Nasal Swab
Specimen Description:
04/14/25 15:15
Troponin I Urgent
04/14/25 15:54
Urinalysis Reflex To Culture Urgent
Date Specimen was Collected: 04/14/25
Time Specimen was Collected: 13:42
Urine Microscopic Reflex Cult Urgent
Urine Culture Urgent
HENNY Source: U
Specimen Description:
Date Specimen was Collected: 04/14/25
Time Specimen was Collected: 13:42
04/14/25 15:55
Straight Cath As Directed
Frequency: One time now
Abnormal Lab Results
04/14/25 04/14/25 04/14/25
13:02 15:15 15:54
RBC 3.89 L 10^6/uL
(4.20-5.40)
Hgb 10.1 L g/dL
(12.0-16.0)
Hct 31.8 L %
(37.0-47.0)
MCH 26.0 L pg
(27.0-31.0)
MCHC 31.8 L g/dL
(33.0-37.0)
RDW 17.3 H %
(11.5-14.5)
Abs Immat Gran (auto) 0.1 H 10^3/uL
(0-0.05)
Absolute Neuts (auto) 8.7 H 10^3/uL
(1.4-6.5)
Absolute Lymphs (auto) 0.2 L 10^3/uL
(1.2-3.4)
Immature Gran % 1.2 H %
(0-0.5)
Neutrophils % 91.0 H %
(42.2-75.2)
Lymphocytes % 2.5 L %
(20.5-51.1)
PT 26.1 H Sec
(11.4-14.6)
BUN 34 H mg/dl
(7-17)
Glucose 204 H mg/dl
(70-99)
Troponin I 0.040 H* ng/ml 0.054 H* D ng/ml
Ur Occult Blood Reflex 4+ A
(Negative)
Leukocyte Esterase Rfl 3+ A
(Negative)
Urine RBC 50-60 A /HPF
(0-2)
Urine WBC (Reflex) 70-80 A /HPF
(0-5)
Urine Bacteria (Reflex) Many A
(Negative)
Urine Albumin (Reflex) 3+ A
(Neg - Trace)
04/14/25 13:02
04/14/25 13:02
Vital Signs
Initial and Last Documented VS:
Initial Vital Signs
BP
98/40
04/14/25 12:41
Last Documented Vital Signs
Pulse Resp BP Pulse Ox
97 20 104/51 92
04/14/25 18:30 04/14/25 14:27 04/14/25 18:00 04/14/25 18:30
<Sandor Ritter, DO - Last Filed: 04/14/25 15:18>
Orders/Labs/Results
Orders:
Orders
04/14/25 13:00
Electrocardiogram (*1) Urgent
Reason for Study: Shortness of Breath
EKG- Treatment ONCE
04/14/25 13:02
CMP [Comprehensive Metabolic Panel] Urgent
Complete Blood Count/With Diff Urgent
NT-proBNP Urgent
PT/INR [Prothrombin Time] Urgent
PTT Urgent
Troponin I Urgent
04/14/25 13:40
CR Chest - 2 Views Urgent
Comment:
Reason For Exam: weakness, fever
04/14/25 13:48
Lactic Acid Q4H
Comment: CANCEL 2nd LACTIC ACID IF 1st LACTIC ACID IS LESS THAN 2
Blood Culture Q30M
HENNY Source: Blood/Venous
Specimen Description:
04/14/25 13:49
Blood Culture Q30M
HENNY Source: Blood/Venous
Specimen Description:
Influenza A+B Rapid Molecular Urgent
HENNY Source: Nasal Swab
Specimen Description:
04/14/25 15:15
Troponin I Urgent
04/14/25 15:54
Urinalysis Reflex To Culture Urgent
Date Specimen was Collected: 04/14/25
Time Specimen was Collected: 13:42
Urine Microscopic Reflex Cult Urgent
Urine Culture Urgent
HENNY Source: U
Specimen Description:
Date Specimen was Collected: 04/14/25
Time Specimen was Collected: 13:42
04/14/25 15:55
Straight Cath As Directed
Frequency: One time now
Abnormal Lab Results
04/14/25 04/14/25 04/14/25
13:02 15:15 15:54
RBC 3.89 L 10^6/uL
(4.20-5.40)
Hgb 10.1 L g/dL
(12.0-16.0)
Hct 31.8 L %
(37.0-47.0)
MCH 26.0 L pg
(27.0-31.0)
MCHC 31.8 L g/dL
(33.0-37.0)
RDW 17.3 H %
(11.5-14.5)
Abs Immat Gran (auto) 0.1 H 10^3/uL
(0-0.05)
Absolute Neuts (auto) 8.7 H 10^3/uL
(1.4-6.5)
Absolute Lymphs (auto) 0.2 L 10^3/uL
(1.2-3.4)
Immature Gran % 1.2 H %
(0-0.5)
Neutrophils % 91.0 H %
(42.2-75.2)
Lymphocytes % 2.5 L %
(20.5-51.1)
PT 26.1 H Sec
(11.4-14.6)
BUN 34 H mg/dl
(7-17)
Glucose 204 H mg/dl
(70-99)
Troponin I 0.040 H* ng/ml 0.054 H* D ng/ml
Ur Occult Blood Reflex 4+ A
(Negative)
Leukocyte Esterase Rfl 3+ A
(Negative)
Urine RBC 50-60 A /HPF
(0-2)
Urine WBC (Reflex) 70-80 A /HPF
(0-5)
Urine Bacteria (Reflex) Many A
(Negative)
Urine Albumin (Reflex) 3+ A
(Neg - Trace)
04/14/25 13:02
04/14/25 13:02
Vital Signs
Initial and Last Documented VS:
Initial Vital Signs
BP
98/40
04/14/25 12:41
Last Documented Vital Signs
Pulse Resp BP Pulse Ox
97 20 104/51 92
04/14/25 18:30 04/14/25 14:27 04/14/25 18:00 04/14/25 18:30
<DB Villanueva - Last Filed: 04/15/25 14:57>
Orders/Labs/Results
Orders:
Orders
04/14/25 13:00
Electrocardiogram (*1) Urgent
Reason for Study: Shortness of Breath
EKG- Treatment ONCE
04/14/25 13:02
CMP [Comprehensive Metabolic Panel] Urgent
Complete Blood Count/With Diff Urgent
NT-proBNP Urgent
PT/INR [Prothrombin Time] Urgent
PTT Urgent
Troponin I Urgent
04/14/25 13:40
CR Chest - 2 Views Urgent
Comment:
Reason For Exam: weakness, fever
04/14/25 13:48
Lactic Acid Q4H
Comment: CANCEL 2nd LACTIC ACID IF 1st LACTIC ACID IS LESS THAN 2
Blood Culture Q30M
HENNY Source: Blood/Venous
Specimen Description:
04/14/25 13:49
Blood Culture Q30M
HENNY Source: Blood/Venous
Specimen Description:
Influenza A+B Rapid Molecular Urgent
HENNY Source: Nasal Swab
Specimen Description:
04/14/25 15:15
Troponin I Urgent
04/14/25 15:54
Urinalysis Reflex To Culture Urgent
Date Specimen was Collected: 04/14/25
Time Specimen was Collected: 13:42
Urine Microscopic Reflex Cult Urgent
Urine Culture Urgent
HENNY Source: U
Specimen Description:
Date Specimen was Collected: 04/14/25
Time Specimen was Collected: 13:42
04/14/25 15:55
Straight Cath As Directed
Frequency: One time now
Abnormal Lab Results
04/14/25 04/14/25 04/14/25
13:02 15:15 15:54
RBC 3.89 L 10^6/uL
(4.20-5.40)
Hgb 10.1 L g/dL
(12.0-16.0)
Hct 31.8 L %
(37.0-47.0)
MCH 26.0 L pg
(27.0-31.0)
MCHC 31.8 L g/dL
(33.0-37.0)
RDW 17.3 H %
(11.5-14.5)
Abs Immat Gran (auto) 0.1 H 10^3/uL
(0-0.05)
Absolute Neuts (auto) 8.7 H 10^3/uL
(1.4-6.5)
Absolute Lymphs (auto) 0.2 L 10^3/uL
(1.2-3.4)
Immature Gran % 1.2 H %
(0-0.5)
Neutrophils % 91.0 H %
(42.2-75.2)
Lymphocytes % 2.5 L %
(20.5-51.1)
PT 26.1 H Sec
(11.4-14.6)
BUN 34 H mg/dl
(7-17)
Glucose 204 H mg/dl
(70-99)
Troponin I 0.040 H* ng/ml 0.054 H* D ng/ml
Ur Occult Blood Reflex 4+ A
(Negative)
Leukocyte Esterase Rfl 3+ A
(Negative)
Urine RBC 50-60 A /HPF
(0-2)
Urine WBC (Reflex) 70-80 A /HPF
(0-5)
Urine Bacteria (Reflex) Many A
(Negative)
Urine Albumin (Reflex) 3+ A
(Neg - Trace)
04/14/25 13:02
04/14/25 13:02
Vital Signs
Initial and Last Documented VS:
Initial Vital Signs
BP
98/40
04/14/25 12:41
Last Documented Vital Signs
Pulse Resp BP Pulse Ox
97 20 104/51 92
04/14/25 18:30 04/14/25 14:27 04/14/25 18:00 04/14/25 18:30
<Johnny Maza PA-C - Last Filed: 04/16/25 21:32>
MDM/Problems Addressed
Differential Diagnosis Includes:
UTI
Viral syndrome
Pneumonia
Cellulitis
PE
MDM/Problems Addressed:
74-year-old female with extensive past medical history, recent admission here for DVT to the left lower extremity, currently on Eliquis, presents to the emergency department for evaluation of reported fever at home of 100.9 and visiting nurse
reporting patient seemed abnormal however patient states she feels as if she is in her usual state of health, oral temperature here of 99.4 and otherwise hemodynamically stable. No outward signs of infection although there is noted mild left lower
extremity erythema but this appears to be more of a stasis dermatitis as opposed to an active cellulitis. Will check labs, cultures, urine and chest x-ray. Disposition pending.
Chronic conditions affecting care: DM, CAD, Arrhythmia and Other (lymphedema)
Acute Exacerbation and/or Progression of Chronic Illness: Other (lymphedema)
<Johnny Maza PA-C - Last Filed: 04/16/25 21:32>
*Radiology
Radiology exam reviewed: preliminary read by ED provider (SMOOTHL atelectasis)
*Pulse Oximetry
SaO2: 93
Nasal Cannula flow liters per minute: 3
Patient hypoxic: no
*EKG
Heart Rate: 77
Rate: normal
Rhythm: a-fib
Otoe: normal axis
QRS Pattern: right bundle branch block
*Wood Boring Machine Operator Interpretation
Rate: normal
Heart Rate: 87
Rhythm: a-fib
Data Reviewed
Review of Other/Old Records Reveals: Labs, Records and Discharge Summary
<DB Villanueva - Last Filed: 04/15/25 14:57>
*Critical Care Note
Total Time (30-74mins, 75-104mins- exclusive of procedures): Not Applicable
<Johnny Maza PA-C - Last Filed: 04/16/25 21:32>
Patient Management
Escalation/DeEscalation of care consider admission/obs:
Patients troponin did increase however not significantly. She has no chest pain or any anginal equivalents. Possibly demand related from known hx of CHF. Doubt PE as patient is anticoagulated on eliquis and has a watchman. She ultimately still
wishes to go home and does not have any interest in being admitted. Discussed with Dr. Ritter who agrees patient can be discharged home. We discussed return precautions to the ER. Stable for discharge home
<DB Villanueva - Last Filed: 04/15/25 14:57>
Update Note
Update Note:
04/15/2025 : 09:05 am : Pt called back for positive blood culture gram stain of aerobic and anaerobic bc bottles reveal gram positive cocci in chains. dc w/ family member will bring pt back
ED Attending Note
<Johnny Maza PA-C - Last Filed: 04/16/25 21:32>
-
Portions of this chart may have been created with voice recognition software.� Occasional wrong word or��sound alike� substitutions may have occurred due to the inherent limitations of voice recognition software.
<Sandor Ritter, - Last Filed: 04/14/25 15:18>
ED Attending Note
Patient seen and examined by attending physician: Yes
ED Attending Note:
I reviewed and agree with history and treatment plan by Dario Maza. My exam revealed 74-year-old female on 3 L nasal cannula oxygen. No significant distress. Edema bilateral feet. This is chronic. No significant lab abnormalities. Troponin
0.04. Will repeat. If negative or stable patient may be discharged.
Discharge Plan
Departure
Patient Disposition: Home (Routine Discharge)
Date of Disposition: 04/14/25
Time of Disposition: 16:34
Patient with high blood pressure during this ER visit?: No
Discharge Problem:
Acute UTI, Elevated troponin
Instructions: Urinary tract infection (DC)
Prescriptions:
New
cefuroxime axetil 500 mg tablet
500 mg PO BID 10 Days Qty: 20 0RF
No Action
atorvastatin [Lipitor] 40 mg Tablet
40 mg PO QPM
bumetanide 2 mg Tablet
2 mg PO DAILY
ondansetron HCl 4 mg Tablet
4 mg PO Q6HPRN PRN (Reason: nausea)
verapamil 180 mg Tablet Extended Release
180 mg PO DAILY
midodrine 5 mg Tablet
5 mg PO TID
therapeutic multivitamin Tablet
1 tab PO DAILY
spironolactone 25 mg Tablet
12.5 mg PO DAILY
pantoprazole [Protonix] 40 mg Tablet,Delayed Release (Dr/Ec)
40 mg PO DAILY
levothyroxine [Synthroid] 125 mcg Tablet
125 mcg PO DAILY
gabapentin 300 mg Capsule
300 mg PO BID
montelukast [Singulair] 10 mg Tablet
10 mg PO DAILY
allopurinol 300 mg Tablet
300 mg PO DAILY
digoxin 125 mcg (0.125 mg) Tablet
125 mcg PO DAILY
metoprolol succinate [Toprol XL] 25 mg Tablet Extended Release 24 Hr
25 mg PO DAILY
metformin 500 mg Tablet Extended Release 24 Hr
500 mg PO BID
sertraline 50 mg Tablet
50 mg PO HS
fenofibrate nanocrystallized [Tricor] 48 mg Tablet
48 mg PO HS
loperamide 2 mg Tablet
2 mg PO Q6HPRN PRN (Reason: dirrhea)
Eliquis 5 mg Tablet
5 mg PO BID
aspirin 81 mg Tablet,Delayed Release (Dr/Ec)
81 mg PO DAILY
Referrals:
Betsy Heard NP [Family Provider, Internal Medicine]
Interventions
Interventions:
*Risk Screen - Suicide Last Done: 04/14/25 12:52
*General Assessment Last Done: 04/14/25 12:52
*Neglect/Abuse Screening Last Done: 04/14/25 12:52
*ED- Fall Risk Assessment Last Done: 04/14/25 12:52
*ED COVID-19 Vaccine History Last Done: 04/14/25 12:52
*ED Influenza Vaccine History Last Done: 04/14/25 12:52
*Nursing Disposition Last Done: 04/14/25 17:54
ED- Cardiac Assessment Last Done: 04/14/25 12:52
ED- Neurological Assessment Last Done: 04/14/25 12:52
ED- Pulmonary Assessment Last Done: 04/14/25 12:52
Discharge Date and Time
Discharge Date/Time: 04/14/25 18:40
Print Language: MALDIVIAN
[2025-04-14 15:53] LABS: Troponin I 0.054 ng/ml
[2025-04-14 16:10] LABS: Urine Character Cloudy (Clear)
[2025-04-14 16:29] LABS: Urine Red Blood Cell 50-60 /HPF (0-2); Urine Squamous Cell 0-2 /LPF (Few); Urine White Cell 70-80 /HPF (0-5)
== END 2025-04-14 18:40 | disposition home or self-care (01) ==
LOC: EMR 12:33
PROVIDERS: Physician Assistant Medical; EMERGENCY PHYSICIAN Emergency Medicine; FAMILY PHYSICIAN Internal Medicine
DX: N39.0 Urinary tract infection, site not specified (principal); R53.1 Weakness; I48.91 Unspecified atrial fibrillation; E03.9 Hypothyroidism, unspecified; I13.0 Hypertensive heart and chronic kidney disease with heart failure and stage 1 through stage 4 chronic kidney disease, or unspecified chronic kidney disease; I50.9 Heart failure, unspecified; E11.22 Type 2 diabetes mellitus with diabetic chronic kidney disease; N18.9 Chronic kidney disease, unspecified; E11.42 Type 2 diabetes mellitus with diabetic polyneuropathy; E66.01 Morbid (severe) obesity due to excess calories; E78.00 Pure hypercholesterolemia, unspecified; G40.909 Epilepsy, unspecified, not intractable, without status epilepticus; I25.10 Atherosclerotic heart disease of native coronary artery without angina pectoris; I25.2 Old myocardial infarction; I27.21 Secondary pulmonary arterial hypertension; J44.89 Other specified chronic obstructive pulmonary disease; Z79.01 Long term (current) use of anticoagulants; Z82.49 Family history of ischemic heart disease and other diseases of the circulatory system; Z85.828 Personal history of other malignant neoplasm of skin; Z86.011 Personal history of benign neoplasm of the brain; Z86.16 Personal history of COVID-19; Z86.718 Personal history of other venous thrombosis and embolism; Z87.01 Personal history of pneumonia (recurrent); Z87.442 Personal history of urinary calculi; Z87.891 Personal history of nicotine dependence; Z90.49 Acquired absence of other specified parts of digestive tract; Z95.5 Presence of coronary angioplasty implant and graft
CPT/HCPCS: 99283; 71046; 80053; 81003; 81015; 83605; 83880; 84484; 85025; 85610; 85730; 87040; 87077; 87086; 87147; 87205; 87502; 93005

== ENCOUNTER 2025-04-15 14:46 | Inpatient (IN) | payer MEDICARE, SELFPAY ==
[2025-04-15] VITALS (37 sets, daily range): BP systolic 72–125; BP diastolic 35–98; BMI 39.5
--- NOTE | 2025-04-15 11:59 | ED.GENMED ---
History of Present Illness
General
Chief Complaint: Abnormal Lab Value
Time Seen by Provider: 04/15/25 11:38
History of Present Illness
History of Present Illness:
Patient is a 74-year-old woman with history of non-Hodgkin lymphoma currently on treatment, bilateral lower extremity lymphedema, CKD, heart failure, A-fib on Eliquis presenting to the emergency department with positive blood cultures. Per chart
review patient has history of sepsis secondary to her diabetic foot ulcer. She does not have any history of osteomyelitis. Per chart review patient was on meropenem. Patient was also seen here yesterday for fevers. Ultimately was discharged.
Was called back as her blood cultures were positive. Patient states that since yesterday she has had no further fevers. She just feels weak. She does state that she always has low blood pressure.
Past History
Past History
ED Past Medical History: Arrthythmia (Atrial fibrillation), Asthma, CAD, Cancer (Skin, meningioma grade 2 with radiation therapy and craniotomy), CHF, COPD, HTN, Hypercholesterolemia, NIDDM, MS, Hypothyroidism, Psychiatric (Major depression), Other
(PNA, Cellulitis, Chronic Lymphedema, bilateral heel ulcerations, osteomyelitis of the left heel, morbid obesity) and Other (Sepsis, peripheral neuropathy, anemia, rosacea, COVID 19, seizure disorder, pulmonary artery hypertension, nephrolithiasis,
B complex deficiency, prior acute respiratory failure); Negative Renal failure (Stage IIIa)
ED Past Surgical History: Brain (Right frontal craniotomy for meningioma 2022), Cardiac (cardioversion, Stents X 2, Watchman device), Cholecystectomy (1982), Orthopedic (Left reverse shoulder arthroplasty December 2023), Urological (Bladder repair,
kidney stone extraction) and Other (Right femoral artery cannulation January 2024, Mohs surgery forehead 2021)
Social History
Tobacco: Former smoker
Alcohol: Daily (Vodka 1 large glass)
Drug: None
Personal:
Living: alone
Employment: Retired
Family History
Family History: Hypertension
Phy Exam
Physical Exam
Physical Exam:
GENERAL: in no acute distress
HEENT: normocephalic, extraocular movements intact, moist oral mucosa
NECK: normal inspection
RESPIRATORY: no respiratory distress, clear to auscultation bilaterally
CARDIOVASCULAR: regular rate and rhythm
ABDOMEN/: soft, non-distended, non-tender to palpation, no rebound or guarding
EXTREMITIES: Bilateral lower extremity with significant lymphedema on the left heel wound with foul-smelling drainage and tenderness, no crepitus
NEUROLOGIC: awake and alert, moves all extremities
SKIN: warm
Course
Orders/Labs/Results
Orders:
Orders
04/15/25 11:54
CR Foot - Left Min 3 Views Urgent
Comment:
Reason For Exam: diabetic foot ulcer, concern for osteo
04/15/25 11:59
Lactated Ringers [Lr] 1,000 ml IV BOLUS
04/15/25 12:15
Complete Blood Count/With Diff Urgent
Comprehensive Metabolic Panel Urgent
Lactic Acid Urgent
Blood Culture Q30M
HENNY Source: Blood/Venous
Specimen Description:
Blood Culture Q30M
HENNY Source: Blood/Venous
Specimen Description:
04/15/25 12:22
Meropenem [Merrem] 2,000 mg 0.9% Sodium Chloride 100 ml [Nss] 60 ml IV NOW
04/15/25 12:29
Vancomycin [Vancocin] 2,000 mg 0.9% Sodium Chloride 500 ml [Nss] 500 ml IV NOW
04/15/25 12:58
Acetaminophen 1000MG/100Ml [Ofirmev] 1,000 mg in 100 ml .ROUTE .STK-MED
04/15/25 12:59
Acetaminophen 1000MG/100Ml [Ofirmev] 1,000 mg IV NOW STA
Abnormal Lab Results
04/15/25
12:15
RBC 3.68 L 10^6/uL
(4.20-5.40)
Hgb 9.7 L g/dL
(12.0-16.0)
Hct 30.9 L %
(37.0-47.0)
MCH 26.4 L pg
(27.0-31.0)
MCHC 31.4 L g/dL
(33.0-37.0)
RDW 17.9 H %
(11.5-14.5)
Abs Immat Gran (auto) 0.4 H 10^3/uL
(0-0.05)
Absolute Neuts (auto) 9.0 H 10^3/uL
(1.4-6.5)
Absolute Lymphs (auto) 0.3 L 10^3/uL
(1.2-3.4)
Immature Gran % 4.3 H %
(0-0.5)
Neutrophils % 88.8 H %
(42.2-75.2)
Lymphocytes % 3.3 L %
(20.5-51.1)
Sodium 134 L mmol/L
(135-145)
BUN 41 H mg/dl
(7-17)
Creatinine 1.2 H mg/dL
(0.6-1.0)
Glucose 199 H mg/dl
(70-99)
Lactic Acid 2.7 H mmol/L
(0.7-2.0)
Total Protein 6.1 L g/dl
(6.3-8.2)
04/15/25 12:15
04/15/25 12:15
Vital Signs
Initial and Last Documented VS:
Initial Vital Signs
Temp Pulse Resp BP Pulse Ox
98.4 F 67 18 95/41 97
04/15/25 11:03 04/15/25 11:03 04/15/25 11:03 04/15/25 11:03 04/15/25 11:03
Last Documented Vital Signs
Temp Pulse Resp BP Pulse Ox
98.4 F 61 17 72/41 92
04/15/25 11:03 04/15/25 12:15 04/15/25 12:15 04/15/25 12:00 04/15/25 12:15
MDM/Problems Addressed
Differential Diagnosis Includes:
Patient is a 74-year-old woman with history of non-Hodgkin's lymphoma currently on treatment, bilateral lymphedema, heart failure, A-fib presenting to the emergency department with positive blood cultures. On arrival patient is afebrile. She is
hypotensive. On exam she does have lower extremity swelling redness and a left diabetic foot wound that is having foul-smelling drainage. Concern for sepsis secondary to the wound/cellulitis. Could be component of osteomyelitis.. Will recheck
blood cultures. Will give antibiotics as well as fluids. Will check blood work as well as x-ray. Patient will need admission for further treatment.
*Pulse Oximetry
SaO2: 97
Oxygen Mode of Delivery: Room air
Patient hypoxic: no
*Critical Care Note
Total Time (30-74mins, 75-104mins- exclusive of procedures): Not Applicable
Update Note
Update Note:
Lab work notable for white blood cell count of 10. Lactate elevated. Creatinine is slightly elevated. Patient blood pressure did initially improve with fluids though it did slowly downtrend after we paused for her to go to x-ray. Given patient's
heart failure will need to give small fluid boluses. Patient might need peripheral vasopressors to bridge her while she gets appropriate fluid resuscitation. X-ray per my interpretation with no gas. Discussed with hospitalist who excepted patient
to their service.
ED Attending Note
-
Portions of this chart may have been created with voice recognition software.� Occasional wrong word or��sound alike� substitutions may have occurred due to the inherent limitations of voice recognition software.
Discharge Plan
Departure
Patient Disposition: Admit
Date of Disposition: 04/15/25
Time of Disposition: 13:41
Presentation/result/management discussed w/ accepting MD/DO: Hospitalist
Discharge Problem:
Foot ulcer
Prescriptions:
No Action
atorvastatin [Lipitor] 40 mg Tablet
40 mg PO QPM
bumetanide 2 mg Tablet
2 mg PO DAILY
ondansetron HCl 4 mg Tablet
4 mg PO Q6HPRN PRN (Reason: nausea)
verapamil 180 mg Tablet Extended Release
180 mg PO DAILY
midodrine 5 mg Tablet
5 mg PO TID
therapeutic multivitamin Tablet
1 tab PO DAILY
spironolactone 25 mg Tablet
12.5 mg PO DAILY
pantoprazole [Protonix] 40 mg Tablet,Delayed Release (Dr/Ec)
40 mg PO DAILY
levothyroxine [Synthroid] 125 mcg Tablet
125 mcg PO DAILY
gabapentin 300 mg Capsule
300 mg PO BID
montelukast [Singulair] 10 mg Tablet
10 mg PO DAILY
allopurinol 300 mg Tablet
300 mg PO DAILY
digoxin 125 mcg (0.125 mg) Tablet
125 mcg PO DAILY
metoprolol succinate [Toprol XL] 25 mg Tablet Extended Release 24 Hr
25 mg PO DAILY
metformin 500 mg Tablet Extended Release 24 Hr
500 mg PO BID
sertraline 50 mg Tablet
50 mg PO HS
fenofibrate nanocrystallized [Tricor] 48 mg Tablet
48 mg PO HS
loperamide 2 mg Tablet
2 mg PO Q6HPRN PRN (Reason: dirrhea)
cefuroxime axetil 500 mg tablet
500 mg PO BID 10 Days Qty: 20 0RF
Eliquis 5 mg Tablet
5 mg PO BID
aspirin 81 mg Tablet,Delayed Release (Dr/Ec)
81 mg PO DAILY
Referrals:
Betsy Heard NP [Family Provider, Internal Medicine]
Interventions
Interventions:
*Risk Screen - Suicide Last Done: 04/15/25 11:03
*General Assessment Last Done: 04/15/25 11:03
*Neglect/Abuse Screening Last Done: 04/15/25 11:03
*ED- Fall Risk Assessment Last Done: 04/15/25 12:25
*ED COVID-19 Vaccine History Last Done: 04/15/25 12:25
*ED Influenza Vaccine History Last Done: 04/15/25 12:25
Discharge Date and Time
Print Language: KYRGYZ
[2025-04-15] MEDS: LR 1000 IV (12:24)
[2025-04-15 12:32] LABS: Hematocrit 30.9 % (37.0-47.0); Hemoglobin 9.7 g/dL (12.0-16.0); Mean Corp Hgb Conc. 31.4 g/dL (33.0-37.0); Mean Corpuscular Volume 84.0 fL (81.0-99.0); Nucleated Red Blood Cells % 0 %; Platelet Count 150 10^3/uL (130-400); Red Cell Dist. Width 17.9 % (11.5-14.5)
[2025-04-15 12:55] LABS: ALT (SGPT) 10 U/L (0-35); AST (SGOT) 15 U/L (14-36); Albumin 3.5 g/dl (3.5-5.0); Alkaline Phosphatase 58 U/L (38-126); Blood Urea Nitrogen 41 mg/dl (7-17); Calcium 8.4 mg/dl (8.4-10.2); Carbon Dioxide 26 mmol/L (22-30); Chloride 100 mmol/L (98-107); Estimated Creatinine Clearance 45 ml/min; Glucose 199 mg/dl (70-99); Potassium 3.9 mmol/L (3.5-5.1); Sodium 134 mmol/L (135-145); Total Protein 6.1 g/dl (6.3-8.2); eGFR 46.91
[2025-04-15] MEDS: OFIRMEV 1000 MG IV (13:00)
[2025-04-15] MEDS: MERREM 100 MG IV ×2 (13:35→21:42)
--- NOTE | 2025-04-15 13:57 | HPS.HSE ---
Family Physician
-
Family Physician: Betsy Heard
Chief Complaint
-
fever
History of Present Illness
74-year-old woman with history of non-Hodgkin lymphoma currently on radiation, , bilateral lower extremity lymphedema, CKD, heart failure, A-fib on Eliquis presenting to the emergency department with positive blood cultures. patient stated fever of
100.8 at home yesterday. she was sent in to ER by her visiting RN due to fever. patient was evaluated by ER physician, sheldon blood cultures and sent her home on oral abx. today she was noted to have positive blood cultures and called back in.
Patient denied any fever since discharge from ER yesterday. Patient has chronic left lower extremity wound with ,hematuria.
Upon arrival she was noted hypotensive. Patient started on Levophed. Patient also started on vancomycin and meropenem. Admitting for further management
Medical History
Past Medical History
Past Medical History: Reports Other
Additional Past Medical History:
CKD, systolic heart failure, meningioma, A-fib, pulmonary artery hypertension, iron deficiency anemia, hypothyroidism, allergic asthma, renal mass, lymphedema, coronary artery disease, B12 deficiency, type 2 diabetes, hyperlipidemia, hypertension,
sleep apnea, chronic ulcers of left foot, peripheral vascular disease, H. pylori infection, non-Hodgkin's lymphoma, GERD, osteoporosis, gout bilateral carotid stenosis
Past Surgical History: Reports Other
Additional Past Surgical History:
Cholecystectomy, kidney stones removed, tonsillectomy, angioplasty, cardioversions, skin cancer removed, heel debridement, cardiac ablation, cardioversion, Mohs surgery shoulder repair, left TKA since show debridement
Social History
Tobacco: Non-smoker
Alcohol: None
Drug: None
Living: With Family
Family History
Family History: Not pertinent
Allergies / Home Medications
Allergies reflects when Allergies were last updated in [employer].
Home Medications with original date entered in [employer]
Allergy/Medication List:
Allergies
Allergy/AdvReac Type Severity Reaction Status Date / Time
cat dander Allergy ASTHMA/SOB Verified 04/15/25 11:00
levofloxacin (From Levaquin Allergy Hives Verified 04/15/25 11:00
Leva-Carlos)
Penicillins Allergy Shortness Verified 04/15/25 11:00
of Breath
piperacillin Allergy Anaphylaxis, Verified 04/15/25 11:00
acute
hypoxemic
resp f,
hypotensitching
01/25/24
Sulfa (Sulfonamide Allergy Hives Verified 04/15/25 11:00
Antibiotics)
vancomycin (Vancomycin) Allergy Rash/red Verified 04/15/25 11:00
tino
syndrome
Home Medications
allopurinol 300 mg tablet 300 mg PO DAILY Gout 04/04/25
atorvastatin 40 mg tablet (Lipitor) 40 mg PO QPM High Cholesterol 04/04/25
bumetanide 2 mg tablet 2 mg PO DAILY Fluid Retention/Swelling 04/04/25
digoxin 125 mcg (0.125 mg) tablet 125 mcg PO DAILY Heart Disease/Condition 04/04/25
fenofibrate nanocrystallized 48 mg tablet (Tricor) 48 mg PO HS High Cholesterol 04/04/25
gabapentin 300 mg capsule 300 mg PO BID Neurological Condition 04/04/25
levothyroxine 125 mcg tablet (Synthroid) 125 mcg PO DAILY Thyroid 04/04/25
metformin 500 mg tablet,extended release 24 hr 500 mg PO BID Diabetes 04/04/25
metoprolol succinate 25 mg tablet,extended release 24 hr (Toprol XL) 25 mg PO DAILY Heart Disease/Condition 04/04/25
midodrine 5 mg tablet 5 mg PO TID Blood Pressure 04/04/25
montelukast 10 mg tablet (Singulair) 10 mg PO DAILY Allergies 04/04/25
ondansetron HCl 4 mg tablet 4 mg PO Q6HPRN PRN nausea 04/04/25
pantoprazole 40 mg tablet,delayed release (Protonix) 40 mg PO DAILY gerd 04/04/25
sertraline 50 mg tablet 50 mg PO HS Mental Health/Anxiety 04/04/25
spironolactone 25 mg tablet 12.5 mg PO DAILY Fluid Retention/Swelling 04/04/25
therapeutic multivitamin 1 tab PO DAILY Supplement 04/04/25
verapamil 180 mg tablet,extended release 180 mg PO DAILY Heart Disease/Condition 04/04/25
cefuroxime axetil 500 mg tablet 500 mg PO BID 10 days #20 tabs 04/14/25
loperamide 2 mg tablet 2 mg PO Q6HPRN PRN dirrhea 04/14/25
apixaban 5 mg tablet (Eliquis) 5 mg PO BID Blood Clot Prevention/Tx 04/15/25
aspirin 81 mg tablet,delayed release 81 mg PO DAILY Blood Clot Prevention/Tx 04/15/25
Review of Systems
-
Constitutional: Reports Fatigue
EENT: Reports No Symptoms
Respiratory: Reports No Symptoms
Cardiac: Reports No Symptoms
Abdomen/GI: Reports Diarrhea
: Reports No Symptoms
Musculoskeletal: Reports No Symptoms
Skin: Reports Other (Chronic wound, left heel wound)
Neurological: Reports Weakness
Endocrine: Reports No Symptoms
Hematologic/Lymphatic: Reports No Symptoms
Psych: Reports No Symptoms
Physical Exam
Vital Signs
Vital Signs
Temp Pulse Resp BP Pulse Ox
98.4 F 54 24 84/40 94
04/15/25 11:03 04/15/25 13:45 04/15/25 13:45 04/15/25 13:40 04/15/25 13:45
Physical Exam
General: Well Developed, Well Nourished and No Apparent Distress
HEENT: NormoCephalic, Moist mucous membranes and Atraumatic
Respiratory: Clear
Cardiac: S1/S2 and Regular Rhythm; No Murmur or Rub
GI: Soft, Non Tender, Non Distended and Normal Bowel Sounds; No Organomegaly
Rectal: Deferred by Provider
Musculoskeletal: No Clubbing, No Cyanosis and No Edema
Skin: Rash and Other (Chronic lower extremities lymphedema, left heel wound as well as wound on the left lower extremities)
Neuro: Nonfocal/grossly intact
Psych: Calm
Laboratory Results
-
04/15/25 12:15
04/15/25 12:15
Laboratory Results
Lactic Acid 2.7 mmol/L (0.7-2.0) H 04/15/25 12:15
Total Bilirubin 0.9 mg/dl (0.2-1.3) 04/15/25 12:15
AST 15 U/L (14-36) 04/15/25 12:15
ALT 10 U/L (0-35) 04/15/25 12:15
Alkaline Phosphatase 58 U/L (38-126) 04/15/25 12:15
Data Reviewed
-
Lab Data: Labs Reviewed by me
Impression/Plan
-
# Sepsis/bacteremia likely from cellulitis/diabetic foot wound
- Repeat blood cultures pending
- Lactic 2.7
- Foot x-ray with impression of No radiographic findings suggestive of acute osteomyelitis.Extensive soft tissue swelling of the foot, similar to prior.
- IV meropenem continued
- IV Vanco continued
- ID consulted
- Wound care consulted
-wound culture
# Anemia of chronic disease
- Hemoglobin stable at 9.7, no active bleeding
- Continue to monitor
# Acute kidney injury likely hypovolemic
- Creatinine 1.2
- Continue to monitor
- Patient received 1 L lactated Ringer's
- BMP in the morning
## Thrombus in the left greater saphenous vein and common femoral vein due to malignancy
- On Eliquis
# Non-Hodgkin's lymphoma
- on radiation
- Follow[facility]
# Permanent atrial fibrillation status post Watchman device
-continue metoprolol/digoxin.
- Obtain EKG
# Type 2 diabetes mellitus
- Maintained on insulin sliding scale/Lantus
- CHF diet
# Chronic hypoxic resp insufficiency
# History of diastolic CHF-not in acute exacerbation
- Patient uses 2 L at baseline, continue supplemental oxygen
- bumex continued
-held spirnolactone
#GOUT
-allopurinol continued
#HLD
-statin,fenofibrate continued
#PAD
-gabapentin continued
#hypotension
-on Midodrine
#hypothyroidism
-levothyroxine continued
#GERD
-PPI continued
#anxiety
-sertraline continued
#essential HTN
-verapamil continued
#CODE status
-full code
[2025-04-15] MEDS: VANCOCIN 540 MG IV (14:12)
[2025-04-15] MEDS: LEVOPHED 250 IV ×2 (14:15→20:16)
--- NOTE | 2025-04-15 15:07 | W.PN.UPDATE ---
Update Note
Progress Note Update
This note serves as an addendum to the H&P by composite layup worker MAGDALENA�
Dominga JAVI�
HPI
74F
PMHX: NHL,currently on XRT, Dana chr lymphedema, chr hypotension, chr OFELIA midodrine dependent, CKD, CHF, Prx AF, chr Mary was seen at ER;
- was sent to ER for POS GPC in chains BCx (04/14/25)
- T 100.8 at home yesterday.
- Yesterday : visiting RN due to fever - seen at ER - BCx sent - and home on oral PO ABx
- Patient denied any fever since discharge from ER yesterday.
- HX chronic left lower extremity wound with
Relevant VS
Vital Signs
Temp Pulse Resp BP Pulse Ox
98.0 F 56 24 100/48 98
04/15/25 14:18 04/15/25 14:45 04/15/25 14:45 04/15/25 14:45 04/15/25 14:45
04/15/25
12:27 04/15/25
12:40 04/15/25
13:00
Blood pressure 84/47 94/44 89/36
PE
Gen: NAD
Neck: supple
Lungs: CTA
Cor: RRR S1 S2
Abdomen:�soft benign exam
SHAKER FLATWORK: AAO3
MS:Chronic lower extremities lymphedema, left heel wound as well as wound on the left lower extremities)
Psych:
Relevant Data
04/14/25 04/15/25
13:02 12:15
WBC 10.1
Hgb 10.1 L 9.7 L
Plt Count 159 150
04/14/25 04/15/25
13:02 12:15
INR 2.39
Sodium 134 L
Potassium 3.9
BUN 41 H
Creatinine 0.8 1.2 H
eGFR > 60 46.91
Lactic Acid 2.7 H
Lt foot XR
No radiographic findings suggestive of acute osteomyelitis.
Extensive soft tissue swelling of the foot, similar to prior.
04/14/25 CXR
Low lung volumes. New small area of consolidation at the left lung base as above, either atelectasis or less likely early infectious consolidation.
Last hospitalist admission: 04/04/25 -04/06/25
DC DX;
DVT greater saphenous and common femoral
Non-Hodgkin's lymphoma with residual burden receiving radiation therapy.
ASSESSMENT & PLAN
Sepsis/bacteremia likely from cellulitis/diabetic foot wound
Hi grade GPC in chain POS BCx ( 04/14/25)
Associated acute EOD ( BAN with Cr 1.2)
- Repeat 2 BCx
- Lactic 2.7
- No radiographic findings suggestive of acute osteomyelitis. Juust Extensive soft tissue swelling of the foot, similar to prior.
- IV meropenem continued
- Hold vancomycin
- ID consulted
- Wound care consulted
Chr hypotension
chr OFELIA midodrine dependent
- c/w Midodrine
HX HTN
- Hold Verapamil due to hypotension
Chronic hypoxic Resp F on home 2 L O2
HX diastolic CHF
- c/w Bumex
- Hold spironolactone
Anemia of chronic disease: Hgb stable at 9.7
- no active bleeding
- Continue to monitor
BAN due to sepsis and hypovolemic
- Cr 1.2
- IV LR
- FU Cr
HX thrombus in the left greater saphenous vein and common femoral vein due to malignancy
- On Eliquis
NHL
- on XRT
- Follow[facility]
Chr HX:
HX Permanent AF : status post Watchman device: [employer] metoprolol/digoxin.
T2DM: ISS, c/w [employer] Lantus
Gout : allopurinol continue
HLD: statin,fenofibrate continued
HX PAD: gabapentin continued
Hypothyroidism: -levothyroxine continued
Anxiety: sertraline continued
DVT Px: SQH
Code: Full
IMU
--- NOTE | 2025-04-15 15:29 | W.PN.UPDATE ---
Addendum entered and electronically signed by To Rodriguez MD 04/15/25 16:02:
ATSP at ER:
Rigor and chills
very anxious
tachycardic , BP 120s
Currently on NE gtt
VSS are stable
PO 93 % during rigors
EKG - BBB, A Fib ( Permanent )
IMP:
Likely Bacteremia with rigors precipitating anxiety and panic episodes
- stop NE gtt- stable BP
- IV Ativan 0.5 mg stat
Unlikely ADES to vancomycin though HX ISSAC with vanco
- DC NE gtt
Case dw AP, CAN HANDLER and patient at bed side
Original Note:
Update Note
Progress Note Update
patient was noted with shaking chills.
her vital signs stable, we stopped vanco and Levophed.
ativan 0.5x1 dose
[2025-04-15] MEDS: ATIVAN 0.5 MG IV (15:33)
--- NOTE | 2025-04-15 15:47 | CON.ID ---
Consultation
-
Date/Time Consultation Requested: April 15, 2025 1500
Date/Time Consultation Performed: April 15, 2025 1550
Requesting Provider: DB Powers
Performing Provider: Dr. Lucrecia Rome
Reason for Consultation: Bacteremia most likely from cellulitis
Chief Complaint / Past History
Chief Complaint
Weakness
History of Present Illness
Patricia Clark is a 74-year-old female with multiple medical history of lymphedema, recurrent cellulitis, PAD failed LLE angioplasty, chronic heel wounds, large B-cell lymphoma currently on XRT, recent left lower extremity DVT, who was called to
return to ED today due to bacteremia. Yesterday patient felt weak, home nurse took her temperature which was 100.9 and she was sent to the ER. Cultures obtained. Chest x-ray small area of consolidation left lung base. She was discharged to home
on cefuroxime. Yesterday's blood cultures came back positive for gram-positive cocci in pairs and chains. Patient denies fever today. No chills. The left heel wound has deteriorated. Left leg is red. No cough. No urine symptoms. No diarrhea.
In the ER She is hypotensive placed on Levophed. she received meropenem and vancomycin. After vancomycin she developed rigors and chills, similar symptoms to previous IV vancomycin.
Past History
Additional Past Medical History:
Large B-cell lymphoma on s/p chemo, currently on XRT
Diabetes mellitus type 2
Neuropathy
Hypertension
LLE DVT (04/04/2025)
CAD status post stents
Carotid artery disease
paroxysmal atrial fibrillation
Watchman procedure
CHF
PAD failed attempt left lower extremity angioplasty
Class III obesity BMI 46.5
SAMIA
Pulmonary HTN
Chronic lymphedema
Asthma
Tophaceous gout
Insomnia
Rosacea
Nephrolithiasis
Chronic bilateral heel wounds
Cholecystectomy
Left heel osteomyelitis I+D 01/2024 s/p 6wks meropenem and linezolid
Left shoulder replacement
Right femoral artery cannulation January 2024
Mohs surgery forehead 2021
Right frontal craniotomy for meningioma 2022
Bladder repair, kidney stone extraction
Allergy History:
cat dander Allergy (Verified 04/15/25 11:00)
ASTHMA/SOB
levofloxacin (From Levaquin Leva-Carlos) Allergy (Verified 04/15/25 11:00)
Hives
Penicillins Allergy (Verified 04/15/25 11:00)
Shortness of Breath
piperacillin Allergy (Verified 04/15/25 11:00)
Anaphylaxis, acute hypoxemic resp f, hypotensitching 01/25/24
Sulfa (Sulfonamide Antibiotics) Allergy (Verified 04/15/25 11:00)
Hives
vancomycin (Vancomycin) Allergy (Verified 04/15/25 15:44)
Chills, shortness of breath
Medications Reviewed: Yes
Current Antibiotics:
Vancomycin x1
Meropenem
Social History
Tobacco: Former Smoker
Alcohol: Daily
Drug: None
Family History
Family History: Not Pertinent
Review of Systems
Review of Systems
General: Change in Appetite
HEENT: Negative Headache or Pharyngitis
Cardiovascular: Negative Chest Pain or Dyspnea
Respiratory: Negative Dyspnea or Cough
Gasteroenterology: Negative Nausea, Vomiting or Diarrhea
Genital / Urological: Negative Dysuria or Flank Pain
Endocrine: Weakness
All systems: All other systems were reviewed and were negative
Vital Signs
Temp Pulse Resp BP Pulse Ox
98.0 F 129 32 125/80 98
04/15/25 14:18 04/15/25 15:45 04/15/25 15:30 04/15/25 15:24 04/15/25 15:00
Physical Exam
Physical Exam
Constitutional: Acutely Ill
Eyes: No Conjunctival Hemorrhage and Sclera Anicteric
Cardiovascular: Irregular Rate and S1/S2 (Tachycardic)
Pulmonary: Clear
Gastrointestinal: Soft, Non Tender, Non Distended and Normal Bowel Sounds
Extremities: Edema (LLE 3-4+) and Erythema (LLE bright erythema from foot all the way to groin/hip, + warmth)
Wound: Other (Left heel: quarter size necrotic wound with odor)
Neurological: AO x 3 and Other (Drowsy)
Lab / Diagnostic Study Results
04/15/25 12:15
04/15/25 12:15
Abs Immat Gran (auto) 0.4 10^3/uL (0-0.05) H 04/15/25 12:15
Absolute Neuts (auto) 9.0 10^3/uL (1.4-6.5) H 04/15/25 12:15
Absolute Lymphs (auto) 0.3 10^3/uL (1.2-3.4) L 04/15/25 12:15
Absolute Monos (auto) 0.2 10^3/uL (0.1-0.6) 04/15/25 12:15
Absolute Basos (auto) 0.0 10^3/uL (0-0.2) 04/15/25 12:15
Immature Gran % 4.3 % (0-0.5) H 04/15/25 12:15
Neutrophils % 88.8 % (42.2-75.2) H 04/15/25 12:15
Lymphocytes % 3.3 % (20.5-51.1) L 04/15/25 12:15
Monocytes % 2.3 % (1.7-9.3) 04/15/25 12:15
Eosinophils % 1.0 % (0-6) 04/15/25 12:15
Basophils % 0.3 % (0-2) 04/15/25 12:15
Lactic Acid 2.7 mmol/L (0.7-2.0) H 04/15/25 12:15
Microbiology Results
Micro:
04/15/25 12:15 Blood Culture - Pending
Blood/Venous
04/15/25 12:15 Blood Culture - Pending
Blood/Venous
CXR: New small area of consolidation at the left lung base as above, either atelectasis or less likely early infectious consolidation.
04/15/25 Left foot XRAY: No radiographic findings suggestive of acute osteomyelitis. Extensive soft tissue swelling of the foot, similar to prior.
Assessment / Plan
# Severe LLE cellulitis
# GPC pairs/chains bacteremia x 2, cellulitis source
# Necrotic left calcaneus wound
# Septic shock on pressor
# Chronic lymphedema
# PAD failed angioplasty LLE
# Recent dx LLE DVT
# Large B cell lymphoma s/p chemo, currently on XRT
# Allergies to PCN (anaphylaxis), levofloxacin, sulfa, Vancomycin
-Suspect strep cellulitis.
- Follow repeat blood cx's
- DC further Vancomycin
- Add Linezolid 600mg po bid as toxin inhibitor
- Continue meropenem for now.
- Consult podiatry regarding L heel necrotic wound
- Keep MAP >65.
- Supportive care.
--- NOTE | 2025-04-15 19:34 | PTCARENOTE ---
Received patient on admission from ED via stretcher; transferred to bed x4. Purewick in place but patient stated she had not voided. Bladder scan 210. Levophed off in ED; per report nurse stated off at 15:30. BP 94/47 with MAP 60. Stage 2 on L
buttocks and linear stage 2 sacrum. MASD b/l groin. Necrotic L heel and L great toe. Report given to oncoming shift.
[2025-04-15 19:53] LABS: Glucose - Point of Care 160 mg/dl (70-99)
[2025-04-15] MEDS: TRICOR 48 MG PO (20:15)
[2025-04-15] MEDS: LIPITOR 40 MG PO (20:15)
[2025-04-15] MEDS: ELIQUIS 5 MG PO (20:16)
[2025-04-15] MEDS: ZOLOFT 50 MG PO (20:16)
[2025-04-15] MEDS: ZYVOX 600 MG PO (20:16)
[2025-04-15] MEDS: NEURONTIN 300 MG PO (20:16)
[2025-04-15] MEDS: NOVOLOG FLEXPEN-LOW RESISTANCE SC (20:22)
--- NOTE | 2025-04-15 22:15 | PTCARENOTE ---
received patient from previous RN. Patient's bps are soft and levo turned off in ED. TT FIXTURE REPAIRER FABRICATOR and levo ordered again and started for map greater than 65. patient left lower extremity swollen, hot and red. patient and doc note confirmed known thrombus
in left leg and patient on Eliquis. Purewick in place for patient, patient uses purewick at home overnight. patient aaox3, currently on 3L NC, sp02 97%. assessment and vital signs as charted. call duque in reach.
[2025-04-16] VITALS (47 sets, daily range): BP systolic 92–146; BP diastolic 42–96; BMI 39.4
[2025-04-16 05:09] LABS: Blood Urea Nitrogen 42 mg/dl (7-17); Calcium 8.5 mg/dl (8.4-10.2); Carbon Dioxide 25 mmol/L (22-30); Chloride 103 mmol/L (98-107); Estimated Creatinine Clearance 49 ml/min; Glucose 309 mg/dl (70-99); Hematocrit 29.9 % (37.0-47.0); Hemoglobin 9.1 g/dL (12.0-16.0); Mean Corp Hgb Conc. 30.4 g/dL (33.0-37.0); Mean Corpuscular Volume 85.4 fL (81.0-99.0); Platelet Count 158 10^3/uL (130-400); Potassium 3.9 mmol/L (3.5-5.1); Red Cell Dist. Width 18.0 % (11.5-14.5); Sodium 133 mmol/L (135-145); eGFR 52.08
[2025-04-16] MEDS: MERREM 100 MG IV (05:18)
[2025-04-16] MEDS: SYNTHROID 125 MCG PO (05:18)
[2025-04-16] MEDS: NEURONTIN 300 MG PO ×2 (07:57→20:48)
[2025-04-16] MEDS: NOVOLOG FLEXPEN-LOW RESISTANCE 2 UNITS SC (07:57)
[2025-04-16] MEDS: ZYVOX 600 MG PO (07:58)
[2025-04-16] MEDS: ZYLOPRIM 300 MG PO (07:58)
[2025-04-16] MEDS: PROTONIX 40 MG PO (07:58)
[2025-04-16] MEDS: ASPIR LOW (ENTERIC COATED) 81 MG PO (07:58)
[2025-04-16] MEDS: SINGULAIR 10 MG PO (07:58)
[2025-04-16 08:07] LABS: Glucose - Point of Care 242 mg/dl (70-99)
[2025-04-16 09:03] LABS: Glycohemoglobin (HgbA1c) 8.3 % (4.0-5.9)
--- NOTE | 2025-04-16 10:01 | W.PN.ID1 ---
Date of Service
Date of Service: April 16, 2025
Today's Communication
De-escalate abx's to ceftriaxone.
Assessment / Plan
# Severe LLE cellulitis, improving
# Group G strep bacteremia , cellulitis source
# Necrotic left calcaneus wound
# s/p septic shock
# Chronic lymphedema
# PAD failed angioplasty LLE
# Recent dx LLE DVT
# Large B cell lymphoma s/p chemo, currently on XRT
# Allergies to PCN (anaphylaxis), levofloxacin, sulfa, Vancomycin
- repeat blood cx's 1 of 2 (before abx): positive
- repeat bcx's x2 in am.
- De-escalate linezolid, meropenem to ceftriaxone. Review of chart, pt tolerated cephalosporins in the past.
-Podiatry consulted for L heel necrotic wound
Chief Complaint
-: Clinical Sepsis, Cellulitis and Bacteremia
Subjective / Review of Systems
More alert today. No new complaints.
Vital Signs / Physical Exam
Vital Signs
Vital Signs
Temp Pulse Resp BP Pulse Ox
98.4 F 101 20 124/76 93
04/16/25 07:50 04/16/25 06:00 04/16/25 06:00 04/16/25 06:00 04/16/25 06:00
Physical Exam
Constitutional: Comfortable
Eyes: No Conjunctival Hemorrhage and Sclera Anicteric
Cardiovascular: Irregular Rate and S1/S2
Pulmonary: Clear
Gastrointestinal: Soft, Non Tender, Non Distended and Normal Bowel Sounds
Extremities: Edema (LLE 3+) and Erythema ( left foot to hip previous bright erythema significantly improved)
Wound: Other (left heel wound - necrotic)
Neurological: AO x 3
Objective Data
Lab Data
Lab Results
04/16/25 04:37
04/16/25 04:37
Estimated Creat Clear 49 ml/min 04/16/25 04:37
Lactic Acid Cancelled 04/16/25 06:35
Total Bilirubin 0.9 mg/dl (0.2-1.3) 04/15/25 12:15
AST 15 U/L (14-36) 04/15/25 12:15
ALT 10 U/L (0-35) 04/15/25 12:15
Alkaline Phosphatase 58 U/L (38-126) 04/15/25 12:15
Most recent labs reviewed.
Micro Results:
04/15/25 12:15 Blood Culture - Preliminary
Blood/Venous Positive culture in progress
Gram Stain - Final
04/15/25 12:15 Blood Culture - Pending
Blood/Venous
CXR: New small area of consolidation at the left lung base as above, either atelectasis or less likely early infectious consolidation.
04/15/25 Left foot XRAY: No radiographic findings suggestive of acute osteomyelitis. Extensive soft tissue swelling of the foot, similar to prior.
Care Review
Plan reviewed with: Physician (Dr. Ariza)
--- NOTE | 2025-04-16 10:04 | W.PN.HOSP.TC ---
Today's Communication/Plan
-
.
Assessment / Plan
Assessment / Plan
Physical Exam
General: she is not feeling well, in respiratory Distress
HEENT: Normocephalic, Moist mucous membranes and Atraumatic
Respiratory: limited, some wheezes.
Cardiac: S1/S2 and Regular Rhythm; No Murmur or Rub
GI: Soft, Non Tender, Non Distended and Normal Bowel Sounds; No Organomegaly
Rectal: No bleeding.
Musculoskeletal: No Clubbing, No Cyanosis and No Edema
Skin: Rash and Other (Chronic lower extremities lymphedema, left heel wound as well as wound on the left lower extremities)
Neuro: Nonfocal/grossly intact, AAOX3.
Psych: Calm
# Sepsis/bacteremia likely from cellulitis/diabetic foot wound
- Repeat blood cultures pending
- Lactic 2.7
- Foot x-ray with impression of No radiographic findings suggestive of acute osteomyelitis.Extensive soft tissue swelling of the foot, similar to prior.
- IV meropenem continued
- IV Vanco continued
- ID consulted
- Wound care consulted
-d/w podiatry, plan to do bedside debridement
# Septic shock
Will give IVF bolus
Levophed gtt
# Anemia of chronic disease
- Hemoglobin stable at 9.7, no active bleeding
- Continue to monitor
# Acute kidney injury likely hypovolemic
- Creatinine 1.2, now at 1.1
- Continue to monitor
- no flank pain
## Thrombus in the left greater saphenous vein and common femoral vein due to malignancy
- On Eliquis, held for possible podiatry surgery
# Non-Hodgkin's lymphoma
- on radiation
- Follow[facility]
# Permanent atrial fibrillation status post Watchman device
-continue metoprolol/digoxin.
- Obtain EKG
# Type 2 diabetes mellitus
- Maintained on insulin sliding scale/Lantus
- CHF diet
# Acute Chronic hypoxic respiratory failure
# History of diastolic CHF-not in acute exacerbation
- Patient uses 4 L at baseline, continue supplemental oxygen, her requirement is up, likely in distress from fever
Will give IV Tylenol
Order Nebulizer treatments
- Bumex continued
-held spironolactone
#GOUT
-allopurinol continued
#HLD
-statin,fenofibrate continued
#PAD
-gabapentin continued
#hypotension
-on Midodrine
#hypothyroidism
-levothyroxine continued
#GERD
-PPI continued
#anxiety
-sertraline continued
#essential HTN
-verapamil continued
#CODE status
-full code
Total critical time spent to see the patient, examine the patient, review data and lab results, discuss treatment plan with patient, nursing staff around 90 minutes
Anticipated Discharge: > 48 hours
Subjective/Interval History
-
Date of Service: April 16, 2025
She feels tired, having rigors.
No abdominal or chest pain
mild sob
Objective Data
-
Labs:
Laboratory Results
04/16/25
04:37
WBC 7.4
Hgb 9.1 L
Hct 29.9 L
Plt Count 158
Sodium 133 L
Potassium 3.9
Chloride 103
Carbon Dioxide 25
BUN 42 H
Creatinine 1.1 H
Glucose 309 H
Calcium 8.5
Vital Signs:
Vital Signs
Temp Pulse Resp BP Pulse Ox
98.4 F 101 20 124/76 93
04/16/25 07:50 04/16/25 06:00 04/16/25 06:00 04/16/25 06:00 04/16/25 06:00
I&O
04/15/25 04/16/25 04/17/25
06:59 06:59 06:59
Output Total 500 / 500
Balance -500 / -500
[2025-04-16] MEDS: BUMEX 2 MG PO (10:15)
[2025-04-16] MEDS: TOPROL XL 25 MG PO (10:15)
[2025-04-16] MEDS: DUONEB 3 ML INH (10:47)
[2025-04-16] MEDS: OFIRMEV 100 IV (10:48)
[2025-04-16] MEDS: PULMICORT 0.5 MG INH (10:57)
--- NOTE | 2025-04-16 10:58 | WOUNDNOTE ---
LEFT ANTERIOR THIGH
--- NOTE | 2025-04-16 10:59 | WOUNDNOTE ---
GLUTEAL CLEFT, LEFT BUTTOCK
--- NOTE | 2025-04-16 11:01 | WOUNDNOTE ---
LEFT GREAT TOE
--- NOTE | 2025-04-16 11:05 | WOUNDNOTE ---
WON RN note: Patient admitted with L heel ulcer.
See H&P for complete history. Patient lives with family at home. She is followed by Dr. Galarza for her heel ulcer.
PMH: From H+P 'RF (2 L), COPD, HFpEF/RV failure, permanent AF s/p watchman, CAD s/p PCI, valvular heart disease, carotid stenosis, NIDDM, HTN, HLD, NHL on chemotherapy, PAD, H/O TIA, H/O meningioma resection'. She has a history of chronic L heel
ulcer, R heel ulcer, lymphedema, obesity. Failed LLE angioplasty.
Wound Location and type/assessment: Patient known to service, last seen 11/26/24 for PI's on heels. Today R heel remains healed, has dry intact callus. L heel much worse compared to last seen. Appears to be a DTI, dark maroon discolored skin/eschar
with maceration and callus surrounding.+ audible pedal pulses. X ray showed no osteomyelitis. Legs with chronic lymphedema. L upper leg/thigh with blood clot. Turned with assist of nurse Dainsh, has vertical skin breakdown on gluteal cleft, suspect
moisture associated. L buttock with small stage 3 PI vs deep dermal stage 2 PI. Patient confirmed she sits allot at home, has a cushion for wheelchair. Ambulates with a walker.
Appetite: Good. Encouraged protein in diet.
Pressure redistribution devices in place: Centrella air bed, Air cushion on Pillow under calves. Called [facility] for fiber filled boots,(TruVue lite boots) will notify nurse to put on boots when arrives.
Plan: Silicone border foam applied to gluteal cleft and L buttock. R heel applied adhesive foam. L heel applied adaptic, abd pad and shari. Podiatry consult pending. Will defer to for further wound care orders to L heel and offloading.
Instructed patient pressure injury prevention measures.
Will confirm orders with hospitalist, Update care plan and follow as needed.
Patient to follow up with Dr. Galarza.
--- NOTE | 2025-04-16 11:26 | W.CS.POD ---
Consult Summary - Podiatry
-
74 year old female with H/O of non Hodgkin's Lymphoma, PMH for atrial fib, asthma, CAD, CHF, HTN, HLD, IDDM, [place], hypothyroidism, lymphedema presented to the hosp with fever, chills. She is known to me very well,for many years, She had multiple
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
closely with vascular surgery, She is currently admitted with bacteremia/sepsis, She is stable, awake, alert, oriented. Her WBC count is WNL.
Rt heel with dry scab, LT heel with open ulceration and keratotic/necrotic wound edges. She has minimal drainage from LT heel
patient has chronic lymphedema, waiting to get her at home compression therapy. denied chest pain, sob,
Improved WBC count WNL.
Xray Lt heel - no erosive changes/ no osteomyelitic changes to calcaneus.
Exam Lt heel: moderate edema , intact vascular status
LT heel with superficial ulceration with dry necrotic wound edges noted, no exposed bone. No foul odor noted, no deep tunneling or tracking.
A/P: Chronic non healing Left heel ulceration.
Chronic lymphedema b/l lower extremity
Bacteremia
Large cell lymphoma on Chemotherapy/radiation treatment
Plan : Appreciate ID consult, Abx per ID
bedside debridement of LT heel excisional debridement of all necrotic wound edges
LT heel dressings with adaptic and dry gauze once daily.
Off load LEft heel with heel relief boots to B/L heels
Podiatry will follow
[2025-04-16] MEDS: NOVOLOG FLEXPEN-LOW RESISTANCE 3 UNITS SC ×2 (12:13→17:15)
[2025-04-16] MEDS: LANOXIN 125 MCG PO (12:14)
[2025-04-16] MEDS: ROCEPHIN 2000 MG IV (12:14)
[2025-04-16] MEDS: STERILE WATER FOR INJECTION 20 ML IV (12:14)
[2025-04-16 12:23] LABS: Glucose - Point of Care 299 mg/dl (70-99)
--- NOTE | 2025-04-16 12:28 | CM ---
I.A: Completed By ANDREY Ott. Patient was just discharged a week ago.
Patient lives with Son, Dtr-in-law,grandson and grandson's fiance in a [address] [facility] with 1 EFRA at the entrance to the home. Has wheelchair ramp. Full BR is on the 2nd floor. Pt has a stair glide but cannot currently use it due to not being able to bend her
leg. Has been unable to use the second floor for about a year. She has a caregiver in the home to assist her with bathing (private pay).
PCP: Betsy Heard
RX: [facility] in [place]/ [facility]
DME: rolling walker, SPC (not in use),Wheelchair, BR grab bars.
Has 3L n/c home O2. Has a concentrator and portable tank at home. Vendor is unknown.
Has Hx of HH with [facility] with nursing, and PT.
Hx of SNF at [facility] (this would be an acceptable SNF at discharge if needed.) Was also at [place], [facility], and [facility] in the past- prefers home. PLAN: Anticipate Home with [facility]N via [facility]- Re-referral sent.
[2025-04-16] MEDS: NSS 500 IV (13:41)
--- NOTE | 2025-04-16 14:14 | PTCARENOTE ---
Assumed care of patient at beginning of this shift from previous RN with levophed infusing; increased to 3mcg/min from 2mcg/min for MAP 63 on change of shift rounds. Levophed increased to 4mcg/min for MAP 60. Currently BP 92/58 with MAP 66.
Approximately 10:15 HR increased to 120s with POx 88-90% on 3L, increased to 4L but POx only 89-90%; patient also c/o SOB. Per report patient had coughed after drinking soda; patient had no difficulty this morning with liquids/meds. O2 increased to
5L midflow; currently POx 94-97%. Respiratory treatment given by RT. At approximately 10:38 T 99.8 oral and 100.[address] Ariza aware and ordered Ofirmiv which was given. At 11:54 T 99.1 oral and 101.[address] Ariza aware. Temp did come
down to 99.5. Drum Builder in to see patient and did bedside debridement; wound cultures obtained by welfare officer and sent to lab. Dr Ariza updated on Levophed dose; IVF bolus ordered and given. Patient now resting and states she is more comfortable.
See worklist for full assessment, vital signs and med titration.
[2025-04-16] MEDS: LEVOPHED 250 IV (14:35)
[2025-04-16 16:52] LABS: Glucose - Point of Care 289 mg/dl (70-99)
[2025-04-16] MEDS: LIPITOR 40 MG PO (17:16)
[2025-04-16] MEDS: ZOLOFT 50 MG PO (20:49)
[2025-04-16] MEDS: TYLENOL 650 MG PO (20:49)
[2025-04-16] MEDS: TRICOR 48 MG PO (20:49)
[2025-04-16] MEDS: PERCOCET 5/325 1 TABLET PO (21:05)
[2025-04-16 21:35] LABS: Glucose - Point of Care 273 mg/dl (70-99)
[2025-04-16] MEDS: LANTUS 0.1 UNITS SC (21:42)
[2025-04-17] VITALS (24 sets, daily range): BP systolic 98–129; BP diastolic 42–78; BMI 38.9
[2025-04-17 03:48] LABS: Hematocrit 27.3 % (37.0-47.0); Hemoglobin 8.4 g/dL (12.0-16.0); Mean Corp Hgb Conc. 30.8 g/dL (33.0-37.0); Mean Corpuscular Volume 81.0 fL (81.0-99.0); Platelet Count 134 10^3/uL (130-400); Red Cell Dist. Width 17.9 % (11.5-14.5)
[2025-04-17 04:13] LABS: Blood Urea Nitrogen 32 mg/dl (7-17); Calcium 8.6 mg/dl (8.4-10.2); Carbon Dioxide 28 mmol/L (22-30); Chloride 106 mmol/L (98-107); Estimated Creatinine Clearance 68 ml/min; Glucose 129 mg/dl (70-99); Potassium 3.6 mmol/L (3.5-5.1); Sodium 139 mmol/L (135-145); eGFR > 60.00
[2025-04-17] MEDS: SYNTHROID 125 MCG PO (06:20)
[2025-04-17 07:39] LABS: Glucose - Point of Care 106 mg/dl (70-99)
[2025-04-17] MEDS: NOVOLOG FLEXPEN-LOW RESISTANCE SC ×3 (08:21→17:59)
[2025-04-17] MEDS: NOVOLOG FLEXPEN 3 UNITS SC ×3 (08:22→18:39)
[2025-04-17] MEDS: BUMEX 2 MG PO (08:23)
[2025-04-17] MEDS: ASPIR LOW (ENTERIC COATED) 81 MG PO (08:23)
[2025-04-17] MEDS: ELIQUIS 5 MG PO ×2 (08:25→21:03)
[2025-04-17] MEDS: CALAN EXTENDED RELEASE 180 MG PO (08:25)
[2025-04-17] MEDS: HYDROPHOR 1 APPLIC TOPICAL (08:26)
[2025-04-17] MEDS: LANTUS 0.1 UNITS SC ×2 (08:28→21:05)
[2025-04-17] MEDS: IMODIUM 2 MG PO ×2 (08:28→22:00)
[2025-04-17] MEDS: NEURONTIN 300 MG PO ×2 (08:30→21:03)
[2025-04-17] MEDS: PROTONIX 40 MG PO (08:31)
[2025-04-17] MEDS: TOPROL XL 25 MG PO (08:31)
[2025-04-17] MEDS: VISBIOME 2 CAP PO (08:31)
[2025-04-17] MEDS: SINGULAIR 10 MG PO (08:31)
[2025-04-17] MEDS: ZYLOPRIM 300 MG PO (08:32)
[2025-04-17] MEDS: TYLENOL 650 MG PO (08:32)
[2025-04-17 08:54] LABS: Digoxin 0.8 ng/ml (0.8-2.0)
--- NOTE | 2025-04-17 09:15 | W.PN.ID1 ---
Date of Service
Date of Service: April 17, 2025
Today's Communication
MRI foot.
Continue ceftriaxone.
Assessment / Plan
# Severe LLE cellulitis, rapidly improving
# Group G strep bacteremia (3 sets), cellulitis/wound source
# Necrotic left calcaneus wound
# s/p septic shock
# Chronic lymphedema
# PAD failed angioplasty LLE
# Recent dx LLE DVT
# Large B cell lymphoma s/p chemo, currently on XRT
# Allergies to PCN (anaphylaxis), levofloxacin, sulfa, Vancomycin
- repeat blood cx's pending
- Discussed with podiatry who debrided L heel wound at bedside. There was one spot very close to bone.
We agree MRI wo and with contrast to assess for osteomyelitis.
MRI ordered.
- Debridement wound cx pending.
- Continue ceftriaxone.
Chief Complaint
-: Clinical Sepsis, Cellulitis and Bacteremia
Subjective / Review of Systems
Feeling improved.
Tolerating current abx.
Vital Signs / Physical Exam
Vital Signs
Vital Signs
Temp Pulse Resp BP Pulse Ox
97.8 F 101 25 110/52 99
04/17/25 07:32 04/17/25 08:31 04/17/25 04:30 04/17/25 08:31 04/17/25 04:30
Selected Entries
04/16/25
11:54
Temp 101.9 F H
Physical Exam
Constitutional: No Acute Distress and Obese
Cardiovascular: S1/S2 (tachycardic)
Pulmonary: Clear
Gastrointestinal: Soft, Non Tender, Non Distended and Normal Bowel Sounds
Extremities: Edema (LLE decreasing) and Erythema (LLE foot to hip continues to resolve)
Wound: Other (left foot dressing dry)
Neurological: AO x 3
Objective Data
Lab Data
Lab Results
04/17/25 03:39
04/17/25 03:39
Estimated Creat Clear 68 ml/min 04/17/25 03:39
Lactic Acid Cancelled 04/16/25 06:35
Total Bilirubin 0.9 mg/dl (0.2-1.3) 04/15/25 12:15
AST 15 U/L (14-36) 04/15/25 12:15
ALT 10 U/L (0-35) 04/15/25 12:15
Alkaline Phosphatase 58 U/L (38-126) 04/15/25 12:15
Most recent labs reviewed.
Micro Results:
04/17/25 03:39 Blood Culture - Pending
Blood/Venous
04/17/25 03:39 Blood Culture - Pending
Blood/Venous
04/16/25 12:22 Wound Culture - Pending
Leg - Left Gram Stain - Preliminary
04/15/25 12:15 Blood Culture - Preliminary
Blood/Venous No Growth in 24 hours- Final report to follow
04/15/25 12:15 Blood Culture - Preliminary
Blood/Venous Positive culture in progress
Gram Stain - Final
CXR: New small area of consolidation at the left lung base as above, either atelectasis or less likely early infectious consolidation.
04/15/25 Left foot XRAY: No radiographic findings suggestive of acute osteomyelitis. Extensive soft tissue swelling of the foot, similar to prior.
Care Review
Plan reviewed with: Physician (Dr. aMrie, Dr. Ariza)
[2025-04-17] MEDS: LANOXIN 125 MCG PO (12:19)
[2025-04-17 12:20] LABS: Glucose - Point of Care 113 mg/dl (70-99)
--- NOTE | 2025-04-17 12:26 | W.PN.HOSP.TC ---
Today's Communication/Plan
-
.
Assessment / Plan
Assessment / Plan
Physical Exam
General: comfortable , not i ndistress
HEENT: Normocephalic, Moist mucous membranes and Atraumatic
Respiratory: better air, no wheezes
Cardiac: S1/S2 and Regular Rhythm; No Murmur or Rub
GI: Soft, Non Tender, Non Distended and Normal Bowel Sounds; No Organomegaly
Rectal: No bleeding.
Musculoskeletal: No Clubbing, No Cyanosis and No Edema
Skin: Rash and Other (Chronic lower extremities lymphedema, left heel wound as well as wound on the left lower extremities)
Neuro: Nonfocal/grossly intact, AAOX3.
Psych: Calm
# Sepsis/bacteremia likely from cellulitis/diabetic foot wound with lactic acidosis.
-Group G strep bacteremia (3 sets), cellulitis/wound source
- Necrotic left calcaneus wound
Plan for MRI and decide next step
Added PRN Tramadol with Tylenol for pain
Appreciate ID & podiatry help
# Chronic lymphedema/ PAD failed angioplasty LLE
# Septic shock
Resolved.
# Anemia of chronic disease
- no active bleeding
- Continue to monitor
# Acute kidney injury likely hypovolemic, resolved
- Continue to monitor
- no flank pain
## Thrombus in the left greater saphenous vein and common femoral vein due to malignancy
- On Eliquis,
# Non-Hodgkin's lymphoma
- on radiation
- Follow[facility]
# Permanent atrial fibrillation status post Watchman device
-continue metoprolol/digoxin.
- Obtain EKG
# Type 2 diabetes mellitus
Started on Lantus, pre-meal insulin
ISS
# Had acute on Chronic hypoxic respiratory failure
# History of diastolic CHF-not in acute exacerbation
- Patient uses 4 L at baseline, continue supplemental oxygen, her requirement is back to baseline. Better, not in distress.
c/w Nebulizer treatments
- Bumex continued
-held spironolactone
# Hyponatremia mild
#Obesity BMI 38
#Gout
-allopurinol continued
#HLD
-statin,fenofibrate continued
#PAD
-gabapentin continued
#Chronic hypotension
-on Midodrine
#hypothyroidism
-levothyroxine continued
#GERD
-PPI continued
#anxiety
-sertraline continued
#essential HTN
-verapamil continued
#CODE status
-full code
Total time spent to see the patient, examine the patient, review data and lab results, discuss treatment plan with patient, nursing staff around 57 minutes
Anticipated Discharge: > 48 hours
Subjective/Interval History
-
Date of Service: April 17, 2025
She is feeling better
Not in distress
No chest or abdominal pain
Getting IV\\ Abx
No recurrent rigors/ fevers
Objective Data
-
Labs:
Laboratory Results
04/17/25
03:39
WBC 3.7 L
Hgb 8.4 L
Hct 27.3 L
Plt Count 134
Sodium 139
Potassium 3.6
Chloride 106
Carbon Dioxide 28
BUN 32 H
Creatinine 0.8
Glucose 129 H
Calcium 8.6
Vital Signs:
Vital Signs
Temp Pulse Resp BP Pulse Ox
98.1 F 85 29 116/61 97
04/17/25 11:32 04/17/25 12:19 04/17/25 11:00 04/17/25 11:00 04/17/25 11:00
I&O
04/16/25 04/17/25 04/18/25
06:59 06:59 06:59
Output Total 500 / 500 2149 / 2149
Balance -500 / -500 -2149 / -2149
[2025-04-17] MEDS: ROCEPHIN 2000 MG IV (12:51)
[2025-04-17] MEDS: STERILE WATER FOR INJECTION 20 ML IV (12:52)
--- NOTE | 2025-04-17 14:22 | PN.CDI ---
Addendum entered and electronically signed by Blair Ariza MD 04/17/25 14:34:
Left Buttock Stage 2 deep dermal vs Stage 3 Pressure Injury, POA
Original Note:
CDI
- -
CDI:
Physician Documentation Request
Admit Date: 04/15/25 14:46
Dear Doctor To,
Clinical Indicators:
Patient admitted with sepsis due to cellulitis/diabetic foot wound.
04/16 [facility] RN skin/wound assessment: Left Buttock Stage 2 deep dermal vs Stage 3 Pressure Injury, POA
Treatment: Silicone border foam dressing & pressure redistribution devices, including specialty air mattress
Physician documentation of the type and location of wounds is required for compliant documentation. Based on the above clinical findings and your assessment, please provide the following in your progress note:
1. Location of the ulcer/wound, including laterality.
2. Type (etiology) of ulcer/wound:
- Pressure (decubitus) ulcer
- Other, please specify
3. If a pressure ulcer, please also include the stage* of the ulcer:
- Stage 1 - Skin intact, non-blanchable redness
- Stage 2 - Partial thickness loss of dermis, includes intact or open blister
- Stage 3 - Full thickness tissue not including bone, tendon or muscle
- Stage 4 - Full thickness tissue loss, including exposed bone, tendon or muscle
- Unstageable - Full thickness loss in which the base of the ulcer is covered by slough (yellow, platt, watts, green or brown) and/or eschar (platt, brown or black) in the wound bed.
- Unable to determine
Use of terms such as suspected, likely, concern for, or probable (associated with a specific diagnosis that is being evaluated, monitored, or treated as if it exists) are acceptable and can be coded in the inpatient setting, when documented at the
time of discharge.
Thank you,
LISA Goldman RN
CDI Specialist
available via tiger text
Please use your independent medical judgment in providing your response.
*Source: National Pressure Ulcer Advisory Panel (NPUAP)
[2025-04-17] MEDS: LIPITOR 40 MG PO (17:31)
[2025-04-17 17:43] LABS: Glucose - Point of Care 129 mg/dl (70-99)
[2025-04-17] MEDS: ZOLOFT 50 MG PO (21:03)
[2025-04-17] MEDS: TRICOR 48 MG PO (21:03)
[2025-04-17 21:17] LABS: Glucose - Point of Care 153 mg/dl (70-99)
[2025-04-17] MEDS: ULTRAM 50 MG PO (21:59)
--- NOTE | 2025-04-17 23:04 | PTCARENOTE ---
Assumed care of patient from maricruz RN. Patient aaox3. afib on the monitor, hr 60-90s. 96% on 3L NC. Hygiene completed. PW replaced and draining yellow urine. Fiber filled boots on patient. LLE dressing C/D/I. VS and assessment as documented.
Patient resting in bed with call duque in reach.
[2025-04-18] VITALS (16 sets, daily range): BP systolic 101–143; BP diastolic 46–70; PULSE 74; BMI 38.8
[2025-04-18] MEDS: SYNTHROID 125 MCG PO (04:33)
[2025-04-18 05:00] LABS: Hematocrit 27.4 % (37.0-47.0); Hemoglobin 8.5 g/dL (12.0-16.0); Mean Corp Hgb Conc. 31.0 g/dL (33.0-37.0); Mean Corpuscular Volume 83.0 fL (81.0-99.0); Platelet Count 147 10^3/uL (130-400); Red Cell Dist. Width 17.7 % (11.5-14.5)
[2025-04-18 07:44] LABS: Glucose - Point of Care 85 mg/dl (70-99)
[2025-04-18] MEDS: NOVOLOG FLEXPEN 3 UNITS SC ×3 (08:12→19:06)
[2025-04-18] MEDS: NOVOLOG FLEXPEN-LOW RESISTANCE SC ×3 (08:12→17:52)
[2025-04-18] MEDS: CALAN EXTENDED RELEASE 180 MG PO (08:13)
[2025-04-18] MEDS: NEURONTIN 300 MG PO ×2 (08:13→22:19)
[2025-04-18] MEDS: PROTONIX 40 MG PO (08:13)
[2025-04-18] MEDS: IMODIUM 2 MG PO (08:13)
[2025-04-18] MEDS: ASPIR LOW (ENTERIC COATED) 81 MG PO (08:14)
[2025-04-18] MEDS: ELIQUIS 5 MG PO ×2 (08:14→22:19)
[2025-04-18] MEDS: BUMEX 2 MG PO (08:14)
[2025-04-18] MEDS: ZYLOPRIM 300 MG PO (08:14)
[2025-04-18] MEDS: SINGULAIR 10 MG PO (08:14)
[2025-04-18] MEDS: VISBIOME 2 CAP PO (08:14)
[2025-04-18] MEDS: TOPROL XL 25 MG PO (08:15)
[2025-04-18] MEDS: HYDROPHOR 1 APPLIC TOPICAL (08:16)
[2025-04-18] MEDS: LANTUS 0.07 UNITS SC ×2 (08:32→22:20)
--- NOTE | 2025-04-18 10:43 | W.PN.HOSP.TC ---
Today's Communication/Plan
-
Await podiatry input
c/w current antibiotic
Transfer to med/surg
Assessment / Plan
Assessment / Plan
Physical Exam
General: comfortable , not i ndistress
HEENT: Normocephalic, Moist mucous membranes and Atraumatic
Respiratory: better air, no wheezes
Cardiac: S1/S2 and Regular Rhythm; No Murmur or Rub
GI: Soft, Non Tender, Non Distended and Normal Bowel Sounds; No Organomegaly
Rectal: No bleeding.
Musculoskeletal: No Clubbing, No Cyanosis and No Edema
Skin: Rash and Other (Chronic lower extremities lymphedema, left heel wound as well as wound on the left lower extremities)
Neuro: Nonfocal/grossly intact, AAOX3.
Psych: Calm
# Sepsis/bacteremia likely from cellulitis/diabetic foot wound with lactic acidosis.
-Group G strep bacteremia (3 sets), cellulitis/wound source
- Necrotic left calcaneus wound
Plan for MRI and decide next step
Added PRN Tramadol with Tylenol for pain
Appreciate ID & podiatry help
# Chronic lymphedema/ PAD failed angioplasty LLE
# Septic shock
Resolved.
# Anemia of chronic disease
- no active bleeding
- Continue to monitor
# Acute kidney injury likely hypovolemic, resolved
- Continue to monitor
- no flank pain
## Thrombus in the left greater saphenous vein and common femoral vein due to malignancy
- On Eliquis,
# Non-Hodgkin's lymphoma
- on radiation
- Follow[facility]
# Permanent atrial fibrillation status post Watchman device
-continue metoprolol/digoxin.
- Obtain EKG
# Type 2 diabetes mellitus
Started on Lantus, pre-meal insulin
ISS
# Had acute on Chronic hypoxic respiratory failure
# History of diastolic CHF-not in acute exacerbation
- Patient uses 4 L at baseline, continue supplemental oxygen, her requirement is back to baseline. Better, not in distress.
c/w Nebulizer treatments
- Bumex continued
-held spironolactone
# Hyponatremia mild
#Obesity BMI 38
#Gout
-allopurinol continued
#HLD
-statin,fenofibrate continued
#PAD
-gabapentin continued
#Chronic hypotension
-on Midodrine
#hypothyroidism
-levothyroxine continued
#GERD
-PPI continued
#anxiety
-sertraline continued
#essential HTN
-verapamil continued
#CODE status
-full code
Total time spent to see the patient, examine the patient, review data and lab results, discuss treatment plan with patient, nursing staff around 55 minutes
Anticipated Discharge: > 48 hours
Subjective/Interval History
-
Date of Service: April 18, 2025
No complaints
Objective Data
-
Labs:
Laboratory Results
04/18/25
04:40
WBC 3.3 L
Hgb 8.5 L
Hct 27.4 L
Plt Count 147
Vital Signs:
Vital Signs
Temp Pulse Resp BP Pulse Ox
98.8 F 99 20 112/58 97
04/18/25 07:33 04/18/25 08:15 04/18/25 06:00 04/18/25 09:05 04/18/25 08:29
I&O
04/17/25 04/18/25 04/19/25
06:59 06:59 06:59
Intake Total 480 / 480
Output Total 2149 / 2149 700 / 700
Balance -2150 / -2150 -220 / -220
--- NOTE | 2025-04-18 11:33 | CM ---
F/U: Patient is awaiting Podiatry consult, otherwise, PT/OT recommended Home PT so referral was already made to [facility]. Anticipate Home Health w/ [facility].
--- NOTE | 2025-04-18 11:59 | W.PN.ID1 ---
Date of Service
Date of Service: April 18, 2025
Today's Communication
- continue ceftriaxone, add daptomycin
- hold statin
- cpk in the am
- will plan 6 week course of IV antibiotics
- final antibiotic plan pending culture results
- PICC line monday
Assessment / Plan
# Severe LLE cellulitis, rapidly improving
# Group G strep bacteremia (3 sets), cellulitis/wound source
# Necrotic left calcaneus wound
# s/p septic shock
# Chronic lymphedema
# PAD failed angioplasty LLE
# Recent dx LLE DVT
# Large B cell lymphoma s/p chemo, currently on XRT
# Allergies to PCN (anaphylaxis), levofloxacin, sulfa, Vancomycin
- 04/17 repeat blood cx's NGTD
- 04/16 superficial wound culture submitted by admitting team: thus far with gram negative bacilli, enterococcus and group G strep
- Dr Rome discussed with podiatry who debrided L heel wound at bedside. There was one spot very close to bone.
- MRI with suspected early osteomyelitis - given lymphedema, failed angioplasty and nonhealing wound risks of bone biopsy which include leaving and area of exposed bone likely outweigh the benefits of obtaining bone culture
- offloading of the wound
- continue ceftriaxone, add daptomycin
- hold statin
- cpk in the am
- will plan 6 week course of IV antibiotics
- final antibiotic plan pending culture results
- PICC line monday
Chief Complaint
-: Clinical Sepsis, Cellulitis and Bacteremia
Subjective / Review of Systems
afebrile
bp stable
tolerating current therapies
reports marked pain in the heel
Vital Signs / Physical Exam
Vital Signs
Vital Signs
Temp Pulse Resp BP Pulse Ox
97.5 F 78 16 101/55 99
04/18/25 10:58 04/18/25 10:58 04/18/25 10:58 04/18/25 10:58 04/18/25 10:58
Physical Exam
Constitutional: No Acute Distress
Cardiovascular: Regular Rate and S1/S2; Negative Murmur or Rub
Pulmonary: Clear and Symmetric; Negative Wheezes or Rales
Gastrointestinal: Soft, Non Tender, Non Distended and Normal Bowel Sounds
Skin: Warm and Dry; Negative Rash or Jaundice
Wound: Other (L heel wound no visible bone, pink tissue, no surrounding erythema, moderate platt drainage on the dressing)
Objective Data
Lab Data
Lab Results
04/18/25 04:40
04/17/25 03:39
Estimated Creat Clear 68 ml/min 04/17/25 03:39
Lactic Acid Cancelled 04/16/25 06:35
Total Bilirubin 0.9 mg/dl (0.2-1.3) 04/15/25 12:15
AST 15 U/L (14-36) 04/15/25 12:15
ALT 10 U/L (0-35) 04/15/25 12:15
Alkaline Phosphatase 58 U/L (38-126) 04/15/25 12:15
Most recent labs reviewed.
Micro Results:
04/16/25 12:22 Wound Culture - Preliminary
Leg - Left Gram negative bacilli
Enterococcus species
Group G Streptococcus
Gram Stain - Preliminary
04/15/25 12:15 Blood Culture - Final
Blood/Venous Group G Streptococcus
Gram Stain - Final
04/17/25 03:39 Blood Culture - Preliminary
Blood/Venous No Growth in 24 hours- Final report to follow
04/17/25 03:39 Blood Culture - Preliminary
Blood/Venous No Growth in 24 hours- Final report to follow
04/15/25 12:15 Blood Culture - Preliminary
Blood/Venous No Growth in 48 hours- Final report to follow
CXR: New small area of consolidation at the left lung base as above, either atelectasis or less likely early infectious consolidation.
04/15/25 Left foot XRAY: No radiographic findings suggestive of acute osteomyelitis. Extensive soft tissue swelling of the foot, similar to prior.
[2025-04-18 13:05] LABS: Glucose - Point of Care 96 mg/dl (70-99)
[2025-04-18] MEDS: STERILE WATER FOR INJECTION 20 ML IV (13:14)
[2025-04-18] MEDS: ROCEPHIN 2000 MG IV (13:15)
[2025-04-18] MEDS: LANOXIN 125 MCG PO (13:16)
[2025-04-18] MEDS: ULTRAM 50 MG PO (13:27)
[2025-04-18] MEDS: CUBICIN 14 MG IV (15:09)
[2025-04-18 18:23] LABS: Glucose - Point of Care 144 mg/dl (70-99)
[2025-04-18 21:56] LABS: Glucose - Point of Care 138 mg/dl (70-99)
[2025-04-18] MEDS: TRICOR 48 MG PO (22:19)
[2025-04-18] MEDS: ZOLOFT 50 MG PO (22:19)
[2025-04-19] MEDS: SYNTHROID 125 MCG PO (05:50)
[2025-04-19 06:00] VITALS: BMI 39.3
[2025-04-19 07:48] VITALS: BP 123/59
[2025-04-19 08:02] LABS: Hematocrit 28.9 % (37.0-47.0); Hemoglobin 8.5 g/dL (12.0-16.0); Mean Corp Hgb Conc. 29.4 g/dL (33.0-37.0); Mean Corpuscular Volume 85.8 fL (81.0-99.0); Platelet Count 156 10^3/uL (130-400); Red Cell Dist. Width 17.2 % (11.5-14.5)
[2025-04-19 08:39] LABS: Glucose - Point of Care 128 mg/dl (70-99)
[2025-04-19] MEDS: NOVOLOG FLEXPEN-LOW RESISTANCE SC ×2 (08:52→11:56)
[2025-04-19] MEDS: NOVOLOG FLEXPEN 3 UNITS SC ×3 (08:53→17:40)
[2025-04-19] MEDS: CALAN EXTENDED RELEASE 180 MG PO (08:54)
[2025-04-19] MEDS: VISBIOME 2 CAP PO (08:54)
[2025-04-19] MEDS: LANTUS 0.07 UNITS SC ×2 (08:54→21:33)
[2025-04-19] MEDS: BUMEX PO ×2 (08:54→09:16)
[2025-04-19] MEDS: ZYLOPRIM 300 MG PO (08:55)
[2025-04-19] MEDS: ELIQUIS 5 MG PO ×2 (08:55→20:34)
[2025-04-19] MEDS: SINGULAIR 10 MG PO (08:55)
[2025-04-19] MEDS: NEURONTIN 300 MG PO ×2 (08:55→20:34)
[2025-04-19] MEDS: IMODIUM 2 MG PO (08:55)
[2025-04-19] MEDS: PROTONIX 40 MG PO (08:55)
[2025-04-19] MEDS: ASPIR LOW (ENTERIC COATED) 81 MG PO (08:55)
[2025-04-19] MEDS: TOPROL XL 25 MG PO (08:56)
[2025-04-19] MEDS: DESENEX/MITRAZOL/ZEASORB 1 APPLIC TOPICAL ×2 (09:12→20:34)
[2025-04-19] MEDS: HYDROPHOR 1 APPLIC TOPICAL (09:12)
[2025-04-19] MEDS: ULTRAM 50 MG PO (09:25)
--- NOTE | 2025-04-19 09:44 | W.PN.HOSP.TC ---
Today's Communication/Plan
-
Will likely need SNF
Assessment / Plan
Assessment / Plan
Physical Exam
General: comfortable , not i ndistress
HEENT: Normocephalic, Moist mucous membranes and Atraumatic
Respiratory: better air, no wheezes
Cardiac: S1/S2 and Regular Rhythm; No Murmur or Rub
GI: Soft, Non Tender, Non Distended and Normal Bowel Sounds; No Organomegaly
Rectal: No bleeding.
Musculoskeletal: No Clubbing, No Cyanosis and No Edema
Skin: Rash and Other (Chronic lower extremities lymphedema, left heel wound as well as wound on the left lower extremities)
Neuro: Nonfocal/grossly intact, AAOX3.
Psych: Calm
# Sepsis/bacteremia likely from cellulitis/diabetic foot wound with lactic acidosis.
-Group G strep bacteremia (3 sets), cellulitis/wound source
- Necrotic left calcaneus wound
she is doing well
No fevers
No worsening pain
Advised to c/w diuretic to avoid edema
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
Per iD, 6 week course of IV antibiotics
Added PRN Tramadol with Tylenol for pain
Appreciate ID & podiatry help
# Chronic lymphedema/ PAD failed angioplasty LLE
# Septic shock
Resolved.
# Anemia of chronic disease
- no active bleeding
- Continue to monitor
# Acute kidney injury likely hypovolemic, resolved
- Continue to monitor
- no flank pain
## Thrombus in the left greater saphenous vein and common femoral vein due to malignancy
- On Eliquis,
# Non-Hodgkin's lymphoma
- on radiation
- Follow[facility]
# Permanent atrial fibrillation status post Watchman device
-continue metoprolol/digoxin.
- Obtain EKG
# Type 2 diabetes mellitus
Started on Lantus, pre-meal insulin
ISS
# Had acute on Chronic hypoxic respiratory failure
# History of diastolic CHF-not in acute exacerbation
- Patient uses 4 L at baseline, continue supplemental oxygen, her requirement is back to baseline. Better, not in distress.
c/w Nebulizer treatments
- Bumex continued
-held spironolactone
# Hyponatremia mild
#Obesity BMI 38
#Gout
-allopurinol continued
#HLD
-statin,fenofibrate continued
#PAD
-gabapentin continued
#Chronic hypotension
-on Midodrine
#hypothyroidism
-levothyroxine continued
#GERD
-PPI continued
#anxiety
-sertraline continued
#essential HTN
-verapamil continued
#CODE status
-full code
Total time spent to see the patient, examine the patient, review data and lab results, discuss treatment plan with patient, nursing staff around 55 minutes
Anticipated Discharge: 24 - 48 hours
Subjective/Interval History
-
Date of Service: April 19, 2025
Objective Data
-
Labs:
Laboratory Results
04/19/25
06:05
WBC 3.4 L
Hgb 8.5 L
Hct 28.9 L
Plt Count 156
Vital Signs:
Vital Signs
Temp Pulse Resp BP Pulse Ox
97.7 F 72 16 123/59 100
04/19/25 07:48 04/19/25 08:56 04/19/25 07:48 04/19/25 08:56 04/19/25 07:48
I&O
04/18/25 04/19/25 04/20/25
06:59 06:59 06:59
Intake Total 480 / 480 1260 / 1260
Output Total 700 / 700
Balance -220 / -220 1260 / 1260
[2025-04-19] MEDS: BUMEX 2 MG PO (10:14)
--- NOTE | 2025-04-19 10:47 | W.PN.POD ---
Today's Communication
Today's Communication
Patient stable per podiatry to D/C
She will f/u in my office in 2 to 3 wks for follow up
Assessment / Plan
-
A/p : Left L/E cellultis - resolved well.
Chronic non healing Left heel ulceration - now early osteomyelitis per MRI
Chronic lymphedema b/l lower extremity
Bacteremia
Large cell lymphoma on Chemotherapy/radiation treatment
Plan : Discussed about her MRI heel which shows early osteomyelitic changes .
Discussed about continuous churn buttermaker abx and strict off loading heel, if not resolved she may end up with bone resection and loosing the limb discussed.
Patient wants to try abx and strict off loading heel
Changed LT heel dressings with adaptic and dry gauze once daily.
Off load LEft heel with heel relief boots when she is in bed
Spoke to her son and DIL about strict off loading her LT post heel at all times with heel protective boots
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
No surgical plans per podiatry at this time
Subjective
Chief Complaint
Left Lower extremity cellultis/ Lt post heel chronic diabetic ulceration in the setting of bacteremia
Subjective
patient seen at bedside, doing well, no fever, chills, no acute distress.
Objective
Temp Pulse Resp BP Pulse Ox
97.7 F 72 16 123/59 100
04/19/25 07:48 04/19/25 10:14 04/19/25 07:48 04/19/25 10:14 04/19/25 07:48
04/19/25 06:05
04/17/25 03:39
Vital Signs and Lab results were reviewed.
Lt heel: moderate edema , intact vascular status
LT heel with superficial ulceration about 3cm x 3.2 cm x 2mm depth with clean, dry base, pink granular base, healthy wound edges noted, small area close to palpable bone, No more drainage noted. No foul odor noted, no deep tunneling or tracking.
Rt heel clean, dry small dry callus , no erythema, no open ulceration
[2025-04-19] MEDS: TYLENOL 650 MG PO (11:43)
[2025-04-19] MEDS: STERILE WATER FOR INJECTION 20 ML IV (11:44)
[2025-04-19] MEDS: ROCEPHIN 2000 MG IV (11:45)
[2025-04-19] MEDS: LANOXIN 125 MCG PO (11:45)
[2025-04-19 11:55] LABS: Glucose - Point of Care 125 mg/dl (70-99)
[2025-04-19] MEDS: CUBICIN 14 MG IV (12:43)
--- NOTE | 2025-04-19 13:37 | W.PN.ID1 ---
Date of Service
Date of Service: April 19, 2025
Today's Communication
picc tomorrow
continue daptomycin and ceftriaxone
Assessment / Plan
# Severe LLE cellulitis, rapidly improving
# Group G strep bacteremia (3 sets), cellulitis/wound source
# Necrotic left calcaneus wound
# s/p septic shock
# Chronic lymphedema
# PAD failed angioplasty LLE
# Recent dx LLE DVT
# Large B cell lymphoma s/p chemo, currently on XRT
# Allergies to PCN (anaphylaxis), levofloxacin, sulfa, Vancomycin
- 04/17 repeat blood cx's NGTD
- 04/16 superficial wound culture submitted by admitting team: thus far with gram negative bacilli, enterococcus and group G strep
- Dr Rome discussed with podiatry who debrided L heel wound at bedside. There was one spot very close to bone.
- MRI with suspected early osteomyelitis - given lymphedema, failed angioplasty and nonhealing wound risks of bone biopsy which include leaving and area of exposed bone likely outweigh the benefits of obtaining bone culture
- offloading of the wound
- continue ceftriaxone, daptomycin
- hold statin
- cpk WNL
- will plan 6 week course of IV antibiotics
- final antibiotic plan pending culture results
- PICC line monday
Chief Complaint
-: Clinical Sepsis, Cellulitis and Bacteremia
Subjective / Review of Systems
afebrile
bp stable
tolerating current therapies
no events overnight
reports she feels more alert today
Vital Signs / Physical Exam
Vital Signs
Vital Signs
Temp Pulse Resp BP Pulse Ox
97.7 F 74 16 123/59 100
04/19/25 07:48 04/19/25 11:45 04/19/25 07:48 04/19/25 10:14 04/19/25 12:47
Physical Exam
Constitutional: No Acute Distress
Cardiovascular: Regular Rate and S1/S2; Negative Murmur or Rub
Pulmonary: Clear and Symmetric; Negative Wheezes or Rales
Gastrointestinal: Soft, Non Tender, Non Distended and Normal Bowel Sounds
Skin: Warm and Dry; Negative Rash or Jaundice
Wound: Other (dressing clean, dry, intact)
Objective Data
Lab Data
Lab Results
04/19/25 06:05
04/17/25 03:39
Estimated Creat Clear 68 ml/min 04/17/25 03:39
Lactic Acid Cancelled 04/16/25 06:35
Total Bilirubin 0.9 mg/dl (0.2-1.3) 04/15/25 12:15
AST 15 U/L (14-36) 04/15/25 12:15
ALT 10 U/L (0-35) 04/15/25 12:15
Alkaline Phosphatase 58 U/L (38-126) 04/15/25 12:15
Most recent labs reviewed.
Micro Results:
04/15/25 12:15 Blood Culture - Preliminary
Blood/Venous No Growth in 4 days- Final report to follow
04/16/25 12:22 Wound Culture - Final
Leg - Left Proteus mirabilis
Enterococcus faecalis
Group G Streptococcus
Gram Stain - Final
04/17/25 03:39 Blood Culture - Preliminary
Blood/Venous No Growth in 48 hours- Final report to follow
04/17/25 03:39 Blood Culture - Preliminary
Blood/Venous No Growth in 48 hours- Final report to follow
04/15/25 12:15 Blood Culture - Final
Blood/Venous Group G Streptococcus
Gram Stain - Final
CXR: New small area of consolidation at the left lung base as above, either atelectasis or less likely early infectious consolidation.
04/15/25 Left foot XRAY: No radiographic findings suggestive of acute osteomyelitis. Extensive soft tissue swelling of the foot, similar to prior.
[2025-04-19 15:17] VITALS: BP 118/50
[2025-04-19 17:27] LABS: Glucose - Point of Care 169 mg/dl (70-99)
[2025-04-19] MEDS: NOVOLOG FLEXPEN-LOW RESISTANCE 1 UNITS SC (17:40)
[2025-04-19 21:32] LABS: Glucose - Point of Care 181 mg/dl (70-99)
[2025-04-19] MEDS: ZOLOFT 50 MG PO (21:32)
[2025-04-19] MEDS: TRICOR 48 MG PO (21:32)
[2025-04-19 23:29] VITALS: BP 119/52
[2025-04-20 05:48] VITALS: BMI 39.7
[2025-04-20] MEDS: SYNTHROID 125 MCG PO (06:06)
[2025-04-20 07:21] LABS: Hematocrit 28.6 % (37.0-47.0); Hemoglobin 8.6 g/dL (12.0-16.0); Mean Corp Hgb Conc. 30.1 g/dL (33.0-37.0); Mean Corpuscular Volume 84.9 fL (81.0-99.0); Platelet Count 158 10^3/uL (130-400); Red Cell Dist. Width 17.2 % (11.5-14.5)
[2025-04-20 07:52] LABS: Blood Urea Nitrogen 20 mg/dl (7-17); Calcium 8.6 mg/dl (8.4-10.2); Carbon Dioxide 32 mmol/L (22-30); Chloride 104 mmol/L (98-107); Estimated Creatinine Clearance 78 ml/min; Glucose 95 mg/dl (70-99); Potassium 3.5 mmol/L (3.5-5.1); Sodium 138 mmol/L (135-145); eGFR > 60.00
[2025-04-20 07:59] VITALS: BP 96/60
[2025-04-20 08:03] LABS: Glucose - Point of Care 100 mg/dl (70-99)
[2025-04-20] MEDS: CALAN EXTENDED RELEASE PO (08:29)
[2025-04-20] MEDS: ASPIR LOW (ENTERIC COATED) 81 MG PO (08:30)
[2025-04-20] MEDS: BUMEX PO (08:30)
[2025-04-20] MEDS: TOPROL XL PO (08:30)
[2025-04-20] MEDS: SINGULAIR 10 MG PO (08:30)
[2025-04-20] MEDS: NEURONTIN 300 MG PO ×2 (08:31→20:55)
[2025-04-20] MEDS: PROTONIX 40 MG PO (08:31)
[2025-04-20] MEDS: NOVOLOG FLEXPEN-LOW RESISTANCE SC (08:31)
[2025-04-20] MEDS: ELIQUIS 5 MG PO ×2 (08:31→20:54)
[2025-04-20] MEDS: VISBIOME 2 CAP PO (08:31)
[2025-04-20] MEDS: NOVOLOG FLEXPEN 3 UNITS SC ×3 (08:32→17:46)
[2025-04-20] MEDS: HYDROPHOR 1 APPLIC TOPICAL (08:33)
[2025-04-20] MEDS: IMODIUM PO (08:33)
[2025-04-20] MEDS: DESENEX/MITRAZOL/ZEASORB 1 APPLIC TOPICAL ×2 (08:33→20:38)
[2025-04-20] MEDS: LANTUS 0.07 UNITS SC ×2 (08:35→21:01)
[2025-04-20] MEDS: ZYLOPRIM 300 MG PO (08:40)
--- NOTE | 2025-04-20 09:38 | W.PN.HOSP.TC ---
Today's Communication/Plan
-
.
Assessment / Plan
Assessment / Plan
Physical Exam
General: comfortable , not in distress
HEENT: Normocephalic, Moist mucous membranes and Atraumatic
Respiratory: better air, no wheezes
Cardiac: S1/S2 and Regular Rhythm; No Murmur or Rub
GI: Soft, Non Tender, Non Distended and Normal Bowel Sounds; No Organomegaly
Rectal: No bleeding.
Musculoskeletal: No Clubbing, No Cyanosis and No Edema
Skin: Rash and Other (Chronic lower extremities lymphedema, left heel wound as well as wound on the left lower extremities)
Neuro: Nonfocal/grossly intact, AAOX3.
Psych: Calm
# Sepsis/bacteremia likely from cellulitis/diabetic foot wound with lactic acidosis.
-Group G strep bacteremia (3 sets), cellulitis/wound source
- Necrotic left calcaneus wound
she is doing well
No fevers
No worsening pain
Advised to c/w diuretic to avoid edema
d/w podiatry: No surgical plans per podiatry at this time, strict off loading her LT post heel at all times with heel protective boots , custodial IV abx.
Per ID, 6 week course of IV antibiotics Pic line placed 04/20.
Added PRN Tramadol with Tylenol for pain
Appreciate ID & podiatry help
# Chronic lymphedema/ PAD failed angioplasty LLE
# Septic shock
Resolved.
# Anemia of chronic disease
- no active bleeding
- Continue to monitor
# Acute kidney injury likely hypovolemic, resolved
- no flank pain
## Thrombus in the left greater saphenous vein and common femoral vein due to malignancy
- On Eliquis,
# Non-Hodgkin's lymphoma
- on radiation
- Follow[facility]
# Permanent atrial fibrillation status post Watchman device
-continue metoprolol/digoxin.
- Obtained EKG, fib with RBBB ( Unchanged)
# Type 2 diabetes mellitus
Better blood glucose level after starting on Lantus, pre-meal insulin
ISS
# Had acute on Chronic hypoxic respiratory failure
# History of diastolic CHF-not in acute exacerbation
- Patient uses 4 L at baseline, continue supplemental oxygen, her requirement is back to baseline. Better, not in distress.
c/w Nebulizer treatments
- Bumex continued
-held spironolactone
# Hyponatremia mild
#Obesity BMI 38
#Gout
-allopurinol continued
#HLD
-statin,fenofibrate continued
#PAD
-gabapentin continued
#Chronic hypotension
-on Midodrine
#hypothyroidism
-levothyroxine continued
#GERD
-PPI continued
#anxiety
-sertraline continued
#essential HTN
-verapamil continued
#CODE status
-full code
Total time spent to see the patient, examine the patient, review data and lab results, discuss treatment plan with patient, nursing staff around 55 minutes
Anticipated Discharge: 24 - 48 hours
Subjective/Interval History
-
Date of Service: April 20, 2025
She is requesting purewick catheter
No chest pain
No sob
No abdominal pain
Objective Data
-
Labs:
Laboratory Results
04/20/25
06:38
WBC 3.6 L
Hgb 8.6 L
Hct 28.6 L
Plt Count 158
Sodium 138
Potassium 3.5
Chloride 104
Carbon Dioxide 32 H
BUN 20 H
Creatinine 0.7
Glucose 95
Calcium 8.6
Vital Signs:
Vital Signs
Temp Pulse Resp BP Pulse Ox
98.4 F 74 18 96/60 99
04/20/25 07:59 04/20/25 08:30 04/20/25 07:59 04/20/25 08:30 04/20/25 07:59
I&O
04/19/25 04/20/25 04/21/25
06:59 06:59 06:59
Intake Total 1260 / 1260 1200 / 1200
Balance 1260 / 1260 1200 / 1200
[2025-04-20] MEDS: STERILE WATER FOR INJECTION 20 ML IV (11:41)
[2025-04-20] MEDS: LANOXIN 125 MCG PO (11:41)
[2025-04-20] MEDS: ROCEPHIN 2000 MG IV (11:41)
[2025-04-20 11:44] LABS: Glucose - Point of Care 198 mg/dl (70-99)
[2025-04-20] MEDS: NOVOLOG FLEXPEN-LOW RESISTANCE 1 UNITS SC (11:44)
[2025-04-20] MEDS: CUBICIN 14 MG IV (13:25)
--- NOTE | 2025-04-20 13:58 | W.PN.ID1 ---
Date of Service
Date of Service: April 20, 2025
Today's Communication
continue ceftriaxone, daptomycin
Assessment / Plan
# Severe LLE cellulitis, rapidly improving
# Group G strep bacteremia (3 sets), cellulitis/wound source
# Necrotic left calcaneus wound
# s/p septic shock
# Chronic lymphedema
# PAD failed angioplasty LLE
# Recent dx LLE DVT
# Large B cell lymphoma s/p chemo, currently on XRT
# Allergies to PCN (anaphylaxis), levofloxacin, sulfa, Vancomycin
- 04/17 repeat blood cx's NGTD
- 04/16 superficial wound culture submitted by admitting team: Proteus, Enterococcus and Group G strep
- Dr Rome discussed with podiatry who debrided L heel wound at bedside. There was one spot very close to bone.
- MRI with suspected early osteomyelitis - given lymphedema, failed angioplasty and nonhealing wound risks of bone biopsy which include leaving an area of exposed bone likely outweigh the benefits of obtaining bone culture
- offloading of the wound
- continue ceftriaxone, daptomycin
- hold statin
- cpk WNL
- will plan 6 week course of IV antibiotics
- PICC line monday
Chief Complaint
-: Clinical Sepsis, Cellulitis and Bacteremia
Subjective / Review of Systems
afebrile
bp overall stable
no events overnight
Vital Signs / Physical Exam
Vital Signs
Vital Signs
Temp Pulse Resp BP Pulse Ox
98.4 F 74 18 96/60 99
04/20/25 07:59 04/20/25 11:41 04/20/25 07:59 04/20/25 08:30 04/20/25 07:59
Physical Exam
Constitutional: No Acute Distress
Cardiovascular: Regular Rate and S1/S2; Negative Murmur or Rub
Pulmonary: Clear and Symmetric; Negative Wheezes or Rales
Gastrointestinal: Soft, Non Tender, Non Distended and Normal Bowel Sounds
Skin: Warm and Dry; Negative Rash or Jaundice
Objective Data
Lab Data
Lab Results
04/20/25 06:38
04/20/25 06:38
Estimated Creat Clear 78 ml/min 04/20/25 06:38
Lactic Acid Cancelled 04/16/25 06:35
Total Bilirubin 0.9 mg/dl (0.2-1.3) 04/15/25 12:15
AST 15 U/L (14-36) 04/15/25 12:15
ALT 10 U/L (0-35) 04/15/25 12:15
Alkaline Phosphatase 58 U/L (38-126) 04/15/25 12:15
Most recent labs reviewed.
Micro Results:
04/15/25 12:15 Blood Culture - Final
Blood/Venous No Growth - Final Report
04/17/25 03:39 Blood Culture - Preliminary
Blood/Venous No Growth in 72 hours- Final report to follow
04/17/25 03:39 Blood Culture - Preliminary
Blood/Venous No Growth in 72 hours- Final report to follow
04/16/25 12:22 Wound Culture - Final
Leg - Left Proteus mirabilis
Enterococcus faecalis
Group G Streptococcus
Gram Stain - Final
04/15/25 12:15 Blood Culture - Final
Blood/Venous Group G Streptococcus
Gram Stain - Final
CXR: New small area of consolidation at the left lung base as above, either atelectasis or less likely early infectious consolidation.
04/15/25 Left foot XRAY: No radiographic findings suggestive of acute osteomyelitis. Extensive soft tissue swelling of the foot, similar to prior.
[2025-04-20 15:25] VITALS: BP 117/67
[2025-04-20 17:38] LABS: Glucose - Point of Care 287 mg/dl (70-99)
[2025-04-20] MEDS: NOVOLOG FLEXPEN-LOW RESISTANCE 3 UNITS SC (17:45)
--- NOTE | 2025-04-20 18:13 | PTCARENOTE ---
Patient had adamantly requested purewick this AM, stating that she uses purewick at home and she would like purewick due to difficulty and pain with turns. She expressed this concern with Dr. Ariza, who ordered purewick. Pt was made aware of
potential infection risks and skin breakdown potential. Purewick applied this AM and remained in place, on low suction. Skin checks were performed and patient was repostioned throughout shift. This evening, patient was repositioned and it was noted
that she had a skin tear to her right labia and right upper thigh. Area was cleansed with NSS and purewick removed. Patient was notified that we cannot use purewick due to skin breakdown.
[2025-04-20 21:00] LABS: Glucose - Point of Care 205 mg/dl (70-99)
[2025-04-20] MEDS: ZOLOFT 50 MG PO (21:00)
[2025-04-20] MEDS: TRICOR 48 MG PO (21:01)
[2025-04-20 23:20] VITALS: BP 152/78
[2025-04-21] MEDS: TYLENOL 650 MG PO (03:24)
[2025-04-21] MEDS: SYNTHROID 125 MCG PO (04:57)
[2025-04-21 04:59] VITALS: BMI 40.0
--- NOTE | 2025-04-21 05:15 | PTCARENOTE ---
Pt awake t/o the night, pt unable to sleep. Pt frequently repositioned per comfort. Pt using bed hamilton as needed. Vital signs stable. Call duque in reach. Will continue to monitor.
[2025-04-21 06:15] LABS: Hematocrit 27.5 % (37.0-47.0); Hemoglobin 8.3 g/dL (12.0-16.0); Mean Corp Hgb Conc. 30.2 g/dL (33.0-37.0); Mean Corpuscular Volume 85.1 fL (81.0-99.0); Platelet Count 165 10^3/uL (130-400); Red Cell Dist. Width 16.9 % (11.5-14.5)
[2025-04-21 06:31] LABS: Blood Urea Nitrogen 16 mg/dl (7-17); Calcium 8.9 mg/dl (8.4-10.2); Carbon Dioxide 33 mmol/L (22-30); Chloride 104 mmol/L (98-107); Estimated Creatinine Clearance 91 ml/min; Glucose 176 mg/dl (70-99); Potassium 3.6 mmol/L (3.5-5.1); Sodium 139 mmol/L (135-145); eGFR > 60.00
[2025-04-21 07:35] VITALS: BP 119/60
[2025-04-21 07:43] LABS: Glucose - Point of Care 149 mg/dl (70-99)
[2025-04-21] MEDS: NOVOLOG FLEXPEN-LOW RESISTANCE SC ×2 (08:24→17:53)
[2025-04-21] MEDS: NOVOLOG FLEXPEN 3 UNITS SC ×2 (08:26→13:20)
[2025-04-21] MEDS: SINGULAIR 10 MG PO (08:34)
[2025-04-21] MEDS: ELIQUIS 5 MG PO (08:34)
[2025-04-21] MEDS: VISBIOME 2 CAP PO (08:34)
[2025-04-21] MEDS: ASPIR LOW (ENTERIC COATED) 81 MG PO (08:35)
[2025-04-21] MEDS: NEURONTIN 300 MG PO (08:35)
[2025-04-21] MEDS: PROTONIX 40 MG PO (08:35)
[2025-04-21] MEDS: ZYLOPRIM 300 MG PO (08:35)
[2025-04-21] MEDS: CALAN EXTENDED RELEASE 180 MG PO (08:41)
[2025-04-21] MEDS: IMODIUM 2 MG PO (08:41)
[2025-04-21] MEDS: TOPROL XL 25 MG PO (08:41)
[2025-04-21] MEDS: HYDROPHOR 1 APPLIC TOPICAL (08:42)
[2025-04-21] MEDS: DESENEX/MITRAZOL/ZEASORB 1 APPLIC TOPICAL (08:42)
[2025-04-21] MEDS: BUMEX 2 MG PO (08:44)
[2025-04-21] MEDS: LANTUS 0.07 UNITS SC (08:46)
--- NOTE | 2025-04-21 09:03 | W.PN.ID1 ---
Date of Service
Date of Service: April 21, 2025
Today's Communication
Continue ceftriaxone 2g IV q24 and daptomycin 700mg IV q24h x 6 weeks through 05/27/25.
Assessment / Plan
# Severe LLE cellulitis, rapidly improving
# Group G strep bacteremia (3 sets), cellulitis/wound source
# Necrotic left calcaneus wound
# s/p septic shock
# Chronic lymphedema
# PAD failed angioplasty LLE
# Recent dx LLE DVT
# Large B cell lymphoma s/p chemo, currently on XRT
# Allergies to PCN (anaphylaxis), levofloxacin, sulfa, Vancomycin
- 04/17 repeat blood cx's NGTD
- 04/16 bedside wound culture : Proteus, Enterococcus and Group G strep
- podiatry debrided L heel wound at bedside and noted one spot very close to bone.
- MRI with suspected early osteomyelitis
- Continue ceftriaxone 2g IV q24 and daptomycin 700mg IV q24h x 6 weeks through 05/27/25.
- Hold statin while on daptomycin.
_ follow weekly CBC/diff, CMP, CK, CRP while on abx's
- Infusion sheet submitted to cyanide case hardener 04/21.
- Keep appt at lymphedema clinic
Chief Complaint
-: Cellulitis and Bacteremia
Subjective / Review of Systems
Feels much improved.
Vital Signs / Physical Exam
Vital Signs
Vital Signs
Temp Pulse Resp BP Pulse Ox
98.2 F 79 18 119/60 98
04/21/25 07:35 04/21/25 07:35 04/21/25 07:35 04/21/25 07:35 04/21/25 07:35
Physical Exam
Constitutional: No Acute Distress and Comfortable
Cardiovascular: Regular Rate and S1/S2
Gastrointestinal: Soft, Non Tender and Non Distended
Genito-Urinary: Negative CVA Tenderness
Extremities: Edema (LLE>RLE lymphedema); Negative Erythema
Neurological: AO x 3
Lines: PICC (LUE)
Objective Data
Lab Data
Lab Results
04/21/25 05:46
04/21/25 05:46
Estimated Creat Clear 91 ml/min 04/21/25 05:46
Lactic Acid Cancelled 04/16/25 06:35
Total Bilirubin 0.9 mg/dl (0.2-1.3) 04/15/25 12:15
AST 15 U/L (14-36) 04/15/25 12:15
ALT 10 U/L (0-35) 04/15/25 12:15
Alkaline Phosphatase 58 U/L (38-126) 04/15/25 12:15
Most recent labs reviewed.
Micro Results:
04/17/25 03:39 Blood Culture - Preliminary
Blood/Venous No Growth in 4 days- Final report to follow
04/17/25 03:39 Blood Culture - Preliminary
Blood/Venous No Growth in 4 days- Final report to follow
04/15/25 12:15 Blood Culture - Final
Blood/Venous No Growth - Final Report
04/16/25 12:22 Wound Culture - Final
Leg - Left Proteus mirabilis
Enterococcus faecalis
Group G Streptococcus
Gram Stain - Final
04/15/25 12:15 Blood Culture - Final
Blood/Venous Group G Streptococcus
Gram Stain - Final
CXR: New small area of consolidation at the left lung base as above, either atelectasis or less likely early infectious consolidation.
04/15/25 Left foot XRAY: No radiographic findings suggestive of acute osteomyelitis. Extensive soft tissue swelling of the foot, similar to prior.
Care Review
Plan reviewed with: Physician (Dr. Callaway)
--- NOTE | 2025-04-21 10:22 | W.PN.HOSP.TC ---
Today's Communication/Plan
-
Discharge home with home infusion once arrangement made.
Assessment / Plan
Assessment / Plan
Impression:
Patient is a pleasant 74-year-old woman with history of non-Hodgkin lymphoma currently on radiation, , bilateral lower extremity lymphedema, CKD, heart failure, A-fib on Eliquis presenting to the emergency department with positive blood cultures.
patient presented with sepsis/bacteremia from cellulitis/diabetic foot wound. Patient was seen by ID and podiatry. No podiatry surgery this admission.� Infectious disease recommend outpatient IV antibiotic. PICC line placed . Infectious disease
recommending Rocephin/daptomycin for 6 weeks.
Assessment/plan:
Sepsis/bacteremia likely from cellulitis/diabetic foot wound with lactic acidosis.
-Group G strep bacteremia (3 sets), cellulitis/wound source
- Necrotic left calcaneus wound
she is doing well
No fevers
No worsening pain
Advised to c/w diuretic to avoid edema
d/w podiatry: No surgical plans per podiatry at this time, strict off loading her LT post heel at all times with heel protective boots , superintendent container terminal IV abx.
Per ID, 6 week course of IV antibiotics Pic line placed 04/20.
Added PRN Tramadol with Tylenol for pain
Appreciate ID & podiatry help
With discharged on ceftriaxone 2g IV q24 and daptomycin 700mg IV q24h x 6 weeks through 05/27/25.
Chronic lymphedema/ PAD failed angioplasty LLE
Septic shock
Resolved.
# Anemia of chronic disease
- no active bleeding
- Continue to monitor
# Acute kidney injury likely hypovolemic, resolved
- no flank pain
## Thrombus in the left greater saphenous vein and common femoral vein due to malignancy
- On Eliquis,
# Non-Hodgkin's lymphoma
- on radiation
- [facility]
# Permanent atrial fibrillation status post Watchman device
-continue metoprolol/digoxin.
- Obtained EKG, fib with RBBB ( Unchanged)
# Type 2 diabetes mellitus
Better blood glucose level after starting on Lantus, pre-meal insulin
ISS
# Had acute on Chronic hypoxic respiratory failure
# History of diastolic CHF-not in acute exacerbation
- Patient uses 4 L at baseline, continue supplemental oxygen, her requirement is back to baseline. Better, not in distress.
c/w Nebulizer treatments
- Bumex continued
-held spironolactone
# Hyponatremia mild ,resolved
#Obesity BMI 38
#Gout
-allopurinol continued
#HLD
Fenofibrate continued
Hold statin while on Daptomycin.
#PAD
-gabapentin continued
#Chronic hypotension
-on Midodrine
#hypothyroidism
-levothyroxine continued
#GERD
-PPI continued
#anxiety
-sertraline continued
#essential HTN
-verapamil continued
CODE STATUS: Full code
DVT prophylaxis: Eliquis
Diet: Diabetic diet
Physical therapy recommendations: Home PT
Disposition: Discharge home with home infusion once arrangement made.
Total time spent on today's encounter was 55 minutes which included time spent in counseling the patient/family regarding diagnosis and treatment plan as listed above, goals of care, and symptom management. Case was discussed with nursing staff,
specialists, and care coordinators/case management. All labs and imaging personally reviewed by me. Remainder the time spent in detailed review of previous records, lab data, imaging, and other medical provider documentation.
Anticipated Discharge: Today
Subjective/Interval History
-
Date of Service: April 21, 2025
Patient seen and examined at bedside, denies any chest pain or shortness of breath, no abdominal pain, no nausea, no vomiting, no diarrhea or constipation.
Pending arrangement for home infusion.
Objective Data
-
Labs:
Laboratory Results
04/21/25
05:46
WBC 3.6 L
Hgb 8.3 L
Hct 27.5 L
Plt Count 165
Sodium 139
Potassium 3.6
Chloride 104
Carbon Dioxide 33 H
BUN 16
Creatinine 0.6
Glucose 176 H
Calcium 8.9
Vital Signs:
Vital Signs
Temp Pulse Resp BP Pulse Ox
98.2 F 79 18 119/60 98
04/21/25 07:35 04/21/25 07:35 04/21/25 07:35 04/21/25 07:35 04/21/25 07:35
I&O
04/20/25 04/21/25 04/22/25
06:59 06:59 06:59
Intake Total 1200 / 1200 1920 / 1920
Output Total 1200 / 1200
Balance 1200 / 1200 720 / 720
Physical Exam
-
General: Well Developed, Well Nourished, No Apparent Distress and Comfortable
HEENT: Normocephalic, Atraumatic, Moist Mucous Membranes, No Ptosis, PERRLA and Nose Appears Normal
Respiratory: Clear to Auscultation and Non Labored Respirations
Cardiac: S1/S2 and Irregular Rhythm
Breast: Deferred by me
GI: Soft, Nontender, Nondistended and Normal Bowel Sounds
Genito-urinary: No Costovertebral Tender
Musculoskeletal: No Clubbing, No Cyanosis, No Edema, Edema, Left Upper Extrem and Other (Left lower extremity dressing.)
Skin: Warm
Neuro: Awake, Alert, Oriented, AO x 3 and No Motor Deficits
Psych: Calm
Data Reviewed
-
Diagnostic Radiology: Image personally visualized and interpreted and Report Reviewed by me
CT Scan: Image personally visualized and interpreted and Report Reviewed by me
Ultrasound: Image personally visualized and interpreted and Report Reviewed by me
MRI: Image personally visualized and interpreted and Report Reviewed by me
Medical Tests (Nuc Med, Echo etc): Image personally visualized and interpreted and Report Reviewed by me
Labs: Labs Reviewed by me
Old Records: Reviewed
--- NOTE | 2025-04-21 10:45 | CM ---
Addendum entered by Shayne Chris 04/21/25 13:13:
CM spoke to [facility] infusion therapy liaison and she confirmed that pt is known to them, all medications covered 100% and they will provide infusion therapy tomorrow.
Pt stated she will need ambulance to get home, requires max assistance with transfer.
to arrange ambulance transport BLS. PMNC completed and left with UC.
Please fax discharge instructions to [facility] at [phone] and [facility] [phone].
D/C plan: home with [facility], resumptions of [facility] and family support.
Original Note:
CM following re: discharge planning.
Reviewed pt's chart, met with pt.
According to MD pt is medically stable to be discharged today and pt will need IV home infusion for 6 weeks. Pt is aware, expressed her agreement. IMM reviewed, placed on chart, pt has a copy.
Pt reports she is current with [facility] and she would like to continue their services. Pt is aware of IV antibiotics and she stated she had IV antibiotics in the past at home and she had [facility]. Pt requested [facility] for home infusion
therapy and [facility]
A referral to [facility] noted.
ANDREY faxed a referral for IV antibiotics at home to [facility], texted latonya Bolivar and she is working on the referral
PT and OT evaluations noted - home PT/OT recommended.
Please fax discharge instructions to [facility] at [phone] and [facility] [phone].
D/C plan: home with [facility], [facility]umptions of [facility] and family support. Awaiting for confirmation from [facility]
--- NOTE | 2025-04-21 10:57 | PTCARENOTE ---
Patient refusing to get OOB, to get washed and brush teeth. Patient states, 'I want to watch my favorite show and not be bothered.' Patient made aware of discharge today after antibiotic doses given at 1200 & 1300. Patient verbalized understanding.
[2025-04-21] MEDS: LANOXIN PO (12:22)
[2025-04-21] MEDS: ROCEPHIN 2000 MG IV (12:23)
[2025-04-21] MEDS: STERILE WATER FOR INJECTION 20 ML IV (12:23)
[2025-04-21 12:30] VITALS: BMI 40.0
[2025-04-21] MEDS: CUBICIN 14 MG IV (12:43)
[2025-04-21 13:05] LABS: Glucose - Point of Care 201 mg/dl (70-99)
[2025-04-21] MEDS: NOVOLOG FLEXPEN-LOW RESISTANCE 2 UNITS SC (13:20)
--- NOTE | 2025-04-21 14:37 | W.DCSUMMARY ---
Discharge Summary
Discharge Data
Date of Admission: 04/15/25
Date of Discharge: 04/21/25
Total time spent discharging patient (in min): 40
-
Pending Results: No
Hospital Course
Hospital course
Patient is a pleasant 74-year-old woman with history of non-Hodgkin lymphoma currently on radiation, , bilateral lower extremity lymphedema, CKD, heart failure, A-fib on Eliquis presenting to the emergency department with positive blood cultures.
patient presented with sepsis/bacteremia from cellulitis/diabetic foot wound. Patient was seen by ID and podiatry. No podiatry surgery this admission.� Infectious disease recommend outpatient IV antibiotic. PICC line placed . Infectious disease
recommending Rocephin/daptomycin for 6 weeks
During hospitalization patient was treated from the following
Sepsis/bacteremia likely from cellulitis/diabetic foot wound with lactic acidosis.
-Group G strep bacteremia (3 sets), cellulitis/wound source
- Necrotic left calcaneus wound
she is doing well
No fevers
No worsening pain
Advised to c/w diuretic to avoid edema
d/w podiatry: No surgical plans per podiatry at this time, strict off loading her LT post heel at all times with heel protective boots , manga artist IV abx.
Per ID, 6 week course of IV antibiotics Pic line placed 04/20.
Added PRN Tramadol with Tylenol for pain
Appreciate ID & podiatry help
With discharged on ceftriaxone 2g IV q24 and daptomycin 700mg IV q24h x 6 weeks through 05/27/25.
Chronic lymphedema/ PAD failed angioplasty LLE
Septic shock
Resolved.
# Anemia of chronic disease
- no active bleeding
- Continue to monitor
# Acute kidney injury likely hypovolemic, resolved
- no flank pain
## Thrombus in the left greater saphenous vein and common femoral vein due to malignancy
- On Eliquis,
# Non-Hodgkin's lymphoma
- on radiation
- [facility]
# Permanent atrial fibrillation status post Watchman device
-continue metoprolol/digoxin.
- Obtained EKG, fib with RBBB ( Unchanged)
# Type 2 diabetes mellitus
Better blood glucose level after starting on Lantus, pre-meal insulin
ISS
# Had acute on Chronic hypoxic respiratory failure
# History of diastolic CHF-not in acute exacerbation
- Patient uses 4 L at baseline, continue supplemental oxygen, her requirement is back to baseline. Better, not in distress.
c/w Nebulizer treatments
- Bumex continued
-held spironolactone
# Hyponatremia mild ,resolved
#Obesity BMI 38
#Gout
-allopurinol continued
#HLD
Fenofibrate continued
Hold statin while on Daptomycin.
#PAD
-gabapentin continued
#Chronic hypotension
-on Midodrine
#hypothyroidism
-levothyroxine continued
#GERD
-PPI continued
#anxiety
-sertraline continued
#essential HTN
-verapamil continued
CODE STATUS: Full code
DVT prophylaxis: Eliquis
Diet: Diabetic diet
Physical therapy recommendations: Home PT
Disposition: Discharge home with home infusion once arrangement made.
Total time spent on today's encounter was 40 minutes which included time spent in counseling the patient/family regarding diagnosis and treatment plan as listed above, goals of care, and symptom management. Case was discussed with nursing staff,
specialists, and care coordinators/case management. All labs and imaging personally reviewed by me. Remainder the time spent in detailed review of previous records, lab data, imaging, and other medical provider documentation.
Anticipated Discharge: Today
Discharge Plan
-
Patient Disposition: Home with Home Care
Discharge Diagnosis/Procedures: Sepsis/bacteremia from cellulitis
diabetic foot wound
lactic acidosis
Chronic lymphedema/ PAD failed angioplasty LLE.
Septic shock, Resolved.
Diet: Diabetic, Carb Controlled
Blood Work: weekly CBC/diff, CMP, CK, CRP while on abx's
Activity Restrictions/Additional Instructions:
Wound Care Instructions
Gluteal cleft and L buttock: clean with soap and water, Silicone border foam change q 2-3 days and prn drainage.
R heel: skin prep and adhesive foam change q 3 days and prn soilage.
L heel: clean with soap and water, skin prep periwound, adaptic, abd pad and shari. Change daily until further orders from podiatry.
L great toe: clean with soap and water, open to air.
Air mattress if going to rehab
air cushion when sitting
fiber filled offloading heel boots
increase protein in diet
Follow up with [facility]
Referrals:
Betsy Heard NP [Family Provider, Internal Medicine]
Additional Discharge Medication Instructions: Continue ceftriaxone 2g IV q24 and daptomycin 700mg IV q24h x 6 weeks through 05/27/25.
- Hold statin while on daptomycin.
Prescriptions:
New
ceftriaxone 2 gram Recon Soln
2,000 mg IV Q24H Qty: 0 0RF
Rx Instructions:
x 6 weeks through 05/27/25.
DAPTOmycin [Cubicin] 700 MG
Syringe [Syringe-Pump] 0 ML
As Directed mls/hr IV Q24H
x 6 weeks through 05/27/25.
Ordered By: Toro Callaway MD
Last Taken: 04/21/25 12:43 14 mls
Probiotic 15 billion cell capsule, sprinkle
1 cap PO DAILY Qty: 30 0RF
Continued
bumetanide 2 mg Tablet
2 mg PO DAILY
ondansetron HCl 4 mg Tablet
4 mg PO Q6HPRN PRN (Reason: nausea)
verapamil 180 mg Tablet Extended Release
180 mg PO DAILY
midodrine 5 mg Tablet
5 mg PO TID
therapeutic multivitamin Tablet
1 tab PO DAILY
spironolactone 25 mg Tablet
12.5 mg PO DAILY
pantoprazole [Protonix] 40 mg Tablet,Delayed Release (Dr/Ec)
40 mg PO DAILY
levothyroxine [Synthroid] 125 mcg Tablet
125 mcg PO DAILY
gabapentin 300 mg Capsule
300 mg PO BID
montelukast [Singulair] 10 mg Tablet
10 mg PO DAILY
allopurinol 300 mg Tablet
300 mg PO DAILY
digoxin 125 mcg (0.125 mg) Tablet
125 mcg PO DAILY
metoprolol succinate [Toprol XL] 25 mg Tablet Extended Release 24 Hr
25 mg PO DAILY
metformin 500 mg Tablet Extended Release 24 Hr
500 mg PO BID
sertraline 50 mg Tablet
50 mg PO HS
fenofibrate nanocrystallized [Tricor] 48 mg Tablet
48 mg PO HS
loperamide 2 mg Tablet
2 mg PO Q6HPRN PRN (Reason: dirrhea)
Eliquis 5 mg Tablet
5 mg PO BID
aspirin 81 mg Tablet,Delayed Release (Dr/Ec)
81 mg PO DAILY
Held
atorvastatin [Lipitor] 40 mg Tablet
40 mg PO QPM
Hold Instructions: Hold Lipitor for 6 weeks while on daptomycin.
Discontinued
cefuroxime axetil 500 mg tablet
500 mg PO BID 10 Days Qty: 20 0RF
Discharge Orders:
Discharge Patient (As Directed); Ordered 04/21/25
Ordered By: Toro Callaway
Discharge Date and Time
Print Language: [place]
--- NOTE | 2025-04-21 14:49 | PTCARENOTE ---
Patient made aware of discharge time at 1800. Patient states, 'That is not ok. I will fix this.'
[2025-04-21 15:15] VITALS: BP 125/60
[2025-04-21] MEDS: NOVOLOG FLEXPEN SC (17:52)
== END 2025-04-21 18:37 | disposition home health service (06) | DRG 853 ==
LOC: 2 NORTH 14:46
PROVIDERS: Internal Medicine; Radiology Diagnostic Radiology; Registered Nurse; Student in an Organized Health Care Education/Training Program; ADMITTING PHYSICIAN Internal Medicine; ATTENDING PHYSICIAN General Practice; CONSULT PHYSICIAN Internal Medicine Infectious Disease; CONSULT PHYSICIAN Podiatrist Foot & Ankle Surgery; EMERGENCY PHYSICIAN Student in an Organized Health Care Education/Training Program; FAMILY PHYSICIAN Internal Medicine
PROC: 0QBM0ZZ Excision of Left Tarsal, Open Approach (ICD-10-PCS; 2025-04-17)
PROC: 02HV33Z Insertion of Infusion Device into Superior Vena Cava, Percutaneous Approach (ICD-10-PCS; 2025-04-20)
DX: A41.9 Sepsis, unspecified organism (principal); J96.21 Acute and chronic respiratory failure with hypoxia; R65.21 Severe sepsis with septic shock; E87.20 Acidosis, unspecified; L03.116 Cellulitis of left lower limb; I50.42 Chronic combined systolic (congestive) and diastolic (congestive) heart failure; I13.0 Hypertensive heart and chronic kidney disease with heart failure and stage 1 through stage 4 chronic kidney disease, or unspecified chronic kidney disease; N17.9 Acute kidney failure, unspecified; I82.812 Embolism and thrombosis of superficial veins of left lower extremity; I48.21 Permanent atrial fibrillation; E87.1 Hypo-osmolality and hyponatremia; Z68.42 Body mass index [BMI] 45.0-49.9, adult; C83.30 Diffuse large B-cell lymphoma, unspecified site; L97.429 Non-pressure chronic ulcer of left heel and midfoot with unspecified severity; E11.621 Type 2 diabetes mellitus with foot ulcer; I89.0 Lymphedema, not elsewhere classified; B95.4 Other streptococcus as the cause of diseases classified elsewhere; E11.51 Type 2 diabetes mellitus with diabetic peripheral angiopathy without gangrene; N18.9 Chronic kidney disease, unspecified; G47.33 Obstructive sleep apnea (adult) (pediatric); D63.1 Anemia in chronic kidney disease; E86.1 Hypovolemia; Z92.21 Personal history of antineoplastic chemotherapy; Z85.828 Personal history of other malignant neoplasm of skin; Z95.818 Presence of other cardiac implants and grafts; I45.10 Unspecified right bundle-branch block; E66.813 Obesity, class 3; E78.00 Pure hypercholesterolemia, unspecified; I95.89 Other hypotension; E03.9 Hypothyroidism, unspecified; K21.9 Gastro-esophageal reflux disease without esophagitis; F41.9 Anxiety disorder, unspecified; Z79.890 Hormone replacement therapy; Z79.01 Long term (current) use of anticoagulants; Z79.899 Other long term (current) drug therapy; Z79.84 Long term (current) use of oral hypoglycemic drugs; Z88.0 Allergy status to penicillin; Z88.2 Allergy status to sulfonamides; Z79.82 Long term (current) use of aspirin; E11.42 Type 2 diabetes mellitus with diabetic polyneuropathy; E53.8 Deficiency of other specified B group vitamins; E11.22 Type 2 diabetes mellitus with diabetic chronic kidney disease; D50.9 Iron deficiency anemia, unspecified; G40.909 Epilepsy, unspecified, not intractable, without status epilepticus; G47.00 Insomnia, unspecified; I25.10 Atherosclerotic heart disease of native coronary artery without angina pectoris; I25.2 Old myocardial infarction; I27.21 Secondary pulmonary arterial hypertension; J44.9 Chronic obstructive pulmonary disease, unspecified; L71.9 Rosacea, unspecified; M81.0 Age-related osteoporosis without current pathological fracture; Z86.718 Personal history of other venous thrombosis and embolism; Z87.442 Personal history of urinary calculi; Z87.891 Personal history of nicotine dependence; Z90.49 Acquired absence of other specified parts of digestive tract; Z95.5 Presence of coronary angioplasty implant and graft; Z96.612 Presence of left artificial shoulder joint; Z96.652 Presence of left artificial knee joint
CPT/HCPCS: 71045; 73630; 73720; 80048; 80053; 80162; 82550; 82962; 83036; 83605; 85025; 85027; 87040; 87070; 87077; 87147; 87186; 87205; 93005; 94640; 96361; 96365; 96366; 96367; 96375; 97163; 97167; 99285; A9575; J0878; J2185

== ENCOUNTER 2025-05-02 06:21 | Outpatient (RCR) | payer MEDICARE, SELFPAY | END 2025-05-02 23:59 | disposition home or self-care (01) | LOC: RPT 06:21 | PROVIDERS: ATTENDING PHYSICIAN Internal Medicine | DX: I89.0 Lymphedema, not elsewhere classified (principal); Z73.6 Limitation of activities due to disability; C85.90 Non-Hodgkin lymphoma, unspecified, unspecified site; R26.89 Other abnormalities of gait and mobility | CPT/HCPCS: 97163; 97530 ==

== ENCOUNTER 2025-05-12 12:46 | Outpatient (REF) | payer MEDICARE, SELFPAY | END 2025-05-12 23:59 | disposition home or self-care (01) | LOC: WOUND 12:46 | PROVIDERS: ATTENDING PHYSICIAN Registered Nurse; FAMILY PHYSICIAN Internal Medicine | DX: I70.244 Atherosclerosis of native arteries of left leg with ulceration of heel and midfoot (principal); I89.0 Lymphedema, not elsewhere classified; E11.69 Type 2 diabetes mellitus with other specified complication; C85.10 Unspecified B-cell lymphoma, unspecified site | CPT/HCPCS: 99204 ==